=== PATIENT | female | born 1990 | race Caucasian/White ===

== ENCOUNTER 2017-11-10 08:11 | Inpatient (IN) | payer MEDICAID, SELFPAY | END 2017-11-12 11:00 | disposition home or self-care (01) | DRG 641 | PROVIDERS: Admitting Provider Internal Medicine Adolescent Medicine; Emergency Provider Emergency Medicine; Family Provider Internal Medicine Adolescent Medicine; Visit Provider Internal Medicine Adolescent Medicine | DX: E87.6 Hypokalemia (principal); E86.0 Dehydration; Z91.19 Patient's noncompliance with other medical treatment and regimen | CPT/HCPCS: 36415; 80048; 80053; 81001; 81025; 82009; 82150; 82803; 82962; 83605; 83690; 85025; 85610; 85730; 87040; 87086; 93005; 96365; 96367; 96375; 99285; J2405 ==

== ENCOUNTER 2017-11-15 10:20 | Emergency (ER) | payer MEDICAID, SELFPAY | END 2017-11-15 13:34 | disposition short-term general hospital (02) | PROVIDERS: Emergency Provider Emergency Medicine; Family Provider Internal Medicine Adolescent Medicine; Visit Provider Emergency Medicine | DX: E10.10 Type 1 diabetes mellitus with ketoacidosis without coma (principal); R41.82 Altered mental status, unspecified; H54.40 Blindness, one eye, unspecified eye; I10 Essential (primary) hypertension; R68.0 Hypothermia, not associated with low environmental temperature; T38.3X6A Underdosing of insulin and oral hypoglycemic [antidiabetic] drugs, initial encounter; Z91.128 Patient's intentional underdosing of medication regimen for other reason; Z88.3 Allergy status to other anti-infective agents; Z88.2 Allergy status to sulfonamides; Z91.048 Other nonmedicinal substance allergy status; Z79.01 Long term (current) use of anticoagulants; Z79.4 Long term (current) use of insulin; Z79.899 Other long term (current) drug therapy; Z90.49 Acquired absence of other specified parts of digestive tract | CPT/HCPCS: 31500; 36569; 70450; 71010; 72170; 80053; 81001; 81025; 82009; 82803; 82962; 83605; 83690; 83930; 84484; 85025; 93005; 93041; 94002; 96365; 96367; 96375; 99285; C1751; J2543 ==

== ENCOUNTER 2018-01-09 09:41 | Observation (INO) ==
--- NOTE | 2018-01-09 09:26 | Emergency Department Note ---
ED Disposition Clinical Impression: Diabetes mellitus, insulin dependent (IDDM), uncontrolled, Intractable vomiting with nausea, Diarrhea Disposition: Still a Patient Condition on Discharge: Good - Critical Care Critical Care Time: No Attestation: On , the high probability of a clinically significant, sudden or life threatening deterioration of the following system(s) required my full and direct attention, intervention and personal management. The time I documented below is in addition to time spent performing reported procedures but includes the following listed in this critical care notation. Medical Decision Making - Medical Records Medical records reviewed: Yes: I reviewed the patient's medical records. - Lab Data Lab Results 01/09/18 09:07: POC Glucose 409 01/09/18 09:30: Specimen Source Right radial, O2 % Room air, ABG pH 7.46 H, ABG pCO2 27.4 L, ABG pO2 206.4 H, ABG HCO3 19.0 L, ABG Total CO2 19.8 L, ABG O2 Saturation 99, ABG Base Excess -4.8 L, Agustin Test Acceptable 01/09/18 09:36: Influenza Type A Ag Negative, Influenza Type B Ag Negative 01/09/18 09:52: WBC 11.8 H, RBC 4.76, Hgb 12.7, Hct 39.1, MCV 82.2, MCH 26.6 L, MCHC 32.3, RDW 15.0, Plt Count 264, MPV 8.6, Neut % (Auto) 87.5 H, Lymph % (Auto ) 8.1 L, [place] % (Auto) 3.8, Eos % (Auto) 0.4, Baso % (Auto) 0.2, Neut # (Auto) 10.3 H, Lymph # (Auto) 1.0, [place] # (Auto) 0.5, Eos # (Auto) 0.1, Baso # (Auto) 0.0, Total Counted 100, Neutrophils % (Manual) 87 H, Lymphocytes % (Manual) 9 L , Monocytes % (Manual) 4, Platelet Estimate Normal, RBC Morphology Normal 01/09/18 09:52: Sodium 134 L, Potassium 4.2, Chloride 100, Carbon Dioxide 22, Anion Gap 16.2 H, BUN 18, Creatinine 0.69, Estimated Creat Clear 146, Estimated GFR 103, Est GFR ( Amer) 124, Glucose 368 H, Calcium 8.9, Total Bilirubin 0.2, AST 12 L, ALT 25, Alkaline Phosphatase 142 H, Total Creatine Kinase 33, CK-MB (CK-2) 0.9, CK-MB (CK-2) Rel Index 2.7, Troponin I < 0.02, Total Protein 8.4 H, Albumin 3.7, Globulin 4.7 H, Albumin/Globulin Ratio 0.8 L, Acetone Level None detected 01/09/18 09:52: Phosphorus 4.2, Magnesium 1.4 01/09/18 09:53: Lactic Acid 1.0 01/09/18 10:15: Urine Color Yellow, Urine Appearance Sl cloudy, Urine pH 6.0, Ur Specific [place] 1.020, Urine Protein Negative, Urine Glucose (UA) 3+, Urine Ketones 1+, Urine Blood Negative, Urine Nitrate Negative, Urine Bilirubin Negative, Urine Urobilinogen 0.2, Ur Leukocyte Esterase Negative, Urine WBC Occasional, Ur Squamous Epith Cells Occasional, Urine Bacteria Trace Result diagrams: 01/09/18 09:52 01/09/18 09:52 Orders (Tests/Meds): ED MEDICATIONS Discontinued Medications Generic Name Dose Route Start Last Admin Trade Name Freq PRN Reason Stop Dose Admin Dicyclomine HCl 10 mg 01/09/18 11:07 01/09/18 12:03 Bentyl 10mg Capsule PO 01/09/18 11:08 10 mg ONCE ONE Administration Sodium Chloride 1,000 mls @ 999 mls/hr 01/09/18 09:15 Sod Chlor 0.9% 1000ml Bag IV 01/09/18 10:15 .Q1H1M DALIA Sodium Chloride 1,000 mls @ 999 mls/hr 01/09/18 11:15 Sod Chlor 0.9% 1000ml Bag IV 01/09/18 12:15 .Q1H1M DALIA Insulin Human Regular 8 unit 01/09/18 11:07 01/09/18 12:04 Humulin R Insulin 100 Units/Ml 10ml Vial SQ 01/09/18 11:08 8 unit ONCE ONE Administration Loperamide HCl 4 mg 01/09/18 11:47 01/09/18 12:03 Imodium 2 Mg Capsule PO 01/09/18 11:48 4 mg ONCE ONE Administration Ondansetron HCl 4 mg 01/09/18 11:07 01/09/18 12:03 Zofran 4mg/2ml Vial IV 01/09/18 11:08 4 mg ONCE ONE Administration ORDERS Category Date Time Status Diarrhea Panel, PCR Stat Lab 01/09/18 11:15 Received Blood Culture Stat Micro 01/09/18 09:52 Received Stool Culture Stat Micro 01/09/18 11:17 Ordered Arterial Blood Gas Stat RT 01/09/18 09:09 Ordered - Radiology Data #1 Image(s): Chest, Abdomen Image Reviewed: Yes I reviewed the patient's radiology image Preliminary Findings: Normal/NAD - ECG Data Tracing #1 Normal sinus rhythm 80/min poor R-wave progression no acute finding. ECG initial impression date: 01/09/18 ECG initial impression time: 09:27 - Jamari Inquiry Pt receiving controlled substance: No Jamari was queried for this patient: No Medical Decision Making Narrative: I called Dr. Ponce who wanted to wait to see the results of the diarrhea panel give the patient more IV fluids. Later the patient did not tolerate p.o. intake and I called Dr. Ponce who accepted her for admission for IV fluid therapy. General Adult HPI - General Chief complaint: Weakness Stated complaint: hyperglycemic episode - History of Present Illness HPI narrative: 27 years old white female with history of seizure disorder pulmonary embolism on Eliquis and insulin-dependent diabetes mellitus with multiple DKA. She did have 9 DKA episodes in in 2017 with one that had a pH of 6.5. Today she woke up at 6:00 with diarrhea followed by vomiting was unable to take her medications so she called ambulance was brought to the ED. she has mild shortness of breath but she denies having chest pain palpitations hematemesis, hemoptysis, melanotic stool or bleeding per rectum. She said "I do want to be bad like last time" Onset (ago): hour(s) (started at 6 am) Location: abdomen Radiation: non-radiation Severity: mild Quality: other (Crampy with diarrhea. ) Consistency: intermittent Relieving factors: none Exacerbating factors: none Associated symptoms: shortness of breath (Mild shortness of breath.) - Related Data Home Medications Medication Instructions Recorded Confirmed Apixaban [Eliquis] 1 pow * DIRECTED 01/09/18 01/09/18 Insulin Glargine,Hum.rec.anlog 100 unit SQ DAILY 01/09/18 01/09/18 [Basaglar Kwikpen U-100] Insulin Lispro [Humalog] 20 unit SQ BID 01/09/18 01/09/18 OXcarbazepine [Oxcarbazepine] 600 mg PO DAILY 01/09/18 01/09/18 Ondansetron [Zofran 4mg ODT] 4 mg PO DAILY PRN 01/09/18 01/09/18 Venlafaxine HCl [Effexor 37.5mg 0 mg PO DAILY 01/09/18 01/09/18 tablet] levETIRAcetam [Levetiracetam] 500 mg PO DAILY 01/09/18 01/09/18 Allergies Allergy/AdvReac Type Severity Reaction Status Date / Time buspirone [BUSPIRONE] Allergy Unknown Verified 01/09/18 09:15 nitrofurantoin Allergy Unknown Verified 01/09/18 09:15 [NITROFURANTOIN] sulfamethoxazole Allergy Unknown Verified 01/09/18 09:15 [From BACTRIM] topiramate [From TOPAMAX] Allergy Unknown Verified 01/09/18 09:15 trimethoprim [From BACTRIM] Allergy Unknown Verified 01/09/18 09:15 adhesive tape AdvReac Intermediate SKIN Verified 01/09/18 09:15 IR[facility] History I have reviewed the patient's past medical history: Yes ROS Obtained: Yes All systems reviewed & no additional complaints Physical Exam - General General appearance: alert, in no apparent distress - Head Head exam: atraumatic, normocephalic, normal inspection - Eye Eye exam: Present: normal appearance, PERRL, EOMI - ENT ENT exam: Present: normal exam, TM's normal bilaterally, normal external ear exam, other (Mild mucosal dryness.) - Neck Neck exam: Present: normal inspection, full ROM, trachea midline. Absent: meningismus, lymphadenopathy - Chest Chest inspection: Present: normal inspection, symmetric chest wall rise. Absent : tenderness - Respiratory Respiratory exam: Present: normal lung sounds bilaterally. Absent: respiratory distress - Cardiovascular Cardiovascular exam: Present: regular rate, normal rhythm. Absent: JVD - Abdominal Exam Abdominal exam: Present: soft, normal bowel sounds. Absent: distention, tenderness, guarding, rebound, rigidity - Extremities Exam Extremities exam: Present: normal inspection, full ROM, normal capillary refill. Absent: calf tenderness - Back Exam Back exam: Present: normal inspection. Absent: tenderness - Neurological Exam Neurological exam: Present: alert, oriented X3, CN II-XII intact, normal gait, motor sensory deficit - Psychiatric Psychiatric exam: Present: normal affect, normal mood - Skin Skin exam: Present: warm, dry, intact, normal color - Lymphatic Lymphatic Findings: no adenopathy
[2018-01-09 09:42] LABS: ABG Base Excess -4.8 mmol/L (-2.4-2.3); ABG Oxygen Saturation 99 % (90-100); ABG PCO2 27.4 mmhg (35.0-45.0); ABG PH 7.46 mmol/L (7.35-7.45); ABG PO2 206.4 mmhg (80-100); ABG TCO2 19.8 mmhg (23-27)
[2018-01-09 09:44] LABS: Allen's Test ACCEPTABLE; Oxygen ROOM AIR %
[2018-01-09 10:12] LABS: Basophils % 0.2 % (0.1-2.0); Eosinophils # 0.1 K/mm3 (0.0-0.4); Eosinophils % 0.4 % (0.1-12.0); Hematocrit 39.1 % (37.0-47.0); Hemoglobin 12.7 g/dL (12.2-16.2); Lymphocytes % 8.1 K/mm3 (10-50); Mean Corpuscular HGB Conc 32.3 g/dL (31.8-35.4); Mean Corpuscular Hemoglobin 26.6 pg (27.0-31.2); Mean Corpuscular Volume 82.2 fl (81-99); Mean Platelet Volume 8.6 fl (7.4-10.4); Monocytes # 0.5 K/mm3 (0.1-1.0); Monocytes % 3.8 % (1.7-9.3); Neutrophils # 10.3 K/mm3 (1.8-7.8); Neutrophils % 87.5 % (37.0-80.0); Platelet Count 264 K/mm3 (142-424); Red Blood Count 4.76 M/mm3 (4.20-5.40); White Blood Count 11.8 K/mm3 (4.8-10.8)
[2018-01-09 10:19] LABS: Acetone, Serum (Rapid) None Detected (None Detect)
[2018-01-09 10:25] LABS: Phosphorous 4.2 mg/dL (2.4-4.9)
[2018-01-09 10:33] LABS: Lymphocytes % 9 % (10-50); Monocytes % 4 % (2-9); Neutrophils % 87 % (42-76); RBC Morphology Normal; Total Cells Counted 100
[2018-01-09 10:37] LABS: Microscopic, Urine URINE MICROSCOPIC (MICROSCOPIC)
[2018-01-09 10:39] LABS: Alanine Aminotransferase 25 U/L (12-78); Albumin Level 3.7 gm/dL (3.4-5.0); Albumin/Globulin Ratio 0.8 (1.1-1.8); Alkaline Phosphatase 142 U/L (46-116); Anion Gap 16.2 mEq/L (5-15); Aspartate Amino Transferase 12 U/L (15-37); Bilirubin,Total 0.2 mg/dL (0.2-1.0); Blood Urea Nitrogen 18 mg/dL (7-18); Calcium 8.9 mg/dL (8.5-10.1); Carbon Dioxide 22 mmol/L (21.0-32.0); Chloride 100 mmol/L (98-107); Creatine Kinase 33 U/L (26-192); Globulin 4.7 gm/dl (1.3-3.2); Glucose 368 mg/dL (74-106); Potassium 4.2 mmoL/L (3.5-5.1); Sodium 134 mmol/L (136-145); Total Protein,Serum 8.4 gm/dL (6.4-8.2)
[2018-01-09 10:39] LABS: Appearance,Urine SL CLOUDY (Clear); Bilirubin,Urine Negative (Negative); Blood, Urine Negative (Negative); Color,Urine YELLOW (Yellow); Glucose,Urine (UA) 3+ (Negative); Ketones,Urine 1+ (Negative); Leukocyte Esterase,Urine Negative (Negative); Protein,Urine Negative (Negative); Urobilinogen,Urine 0.2 EU/dl (0.2)
[2018-01-09 10:48] LABS: Bacteria,Urine Trace /lpf; Squamous Epithelial Cell,Urine Occasional #/hpf (0-5); WBC,Urine Occasional #/hpf (0-3)
--- NOTE | 2018-01-10 07:35 | Pharmacy Consult Notes ---
[facility] Pharmacy VTE Monitoring - Patient Demographics Admission date: 01/09/18 Report Date: 01/10/18 Time: 07:34 Allergies/Adverse Reactions: Patient Allergies buspirone [BUSPIRONE] Allergy (Unknown, Verified 01/09/18 09:15) nitrofurantoin [NITROFURANTOIN] Allergy (Unknown, Verified 01/09/18 09:15) sulfamethoxazole [From BACTRIM] Allergy (Unknown, Verified 01/09/18 09:15) topiramate [From TOPAMAX] Allergy (Unknown, Verified 01/09/18 09:15) trimethoprim [From BACTRIM] Allergy (Unknown, Verified 01/09/18 09:15) adhesive tape Adverse Reaction (Intermediate, Verified 01/09/18 09:15) SKIN IRRITATION Height: 1.6 m Weight: 77.167 kg Patient Problems: Current Active Problems Diabetes mellitus, insulin dependent (IDDM), uncontrolled (Acute) Intractable vomiting with nausea (Acute) Diarrhea (Acute) - VTE Risk Labs: VTE Related Lab Results Hgb 12.7 g/dL (12.2-16.2) 01/09/18 09:52 Hct 39.1 % (37.0-47.0) 01/09/18 09:52 Plt Count 264 K/mm3 (142-424) 01/09/18 09:52 BUN 18 mg/dL (7-18) 01/09/18 09:52 Creatinine 0.69 mg/dL (0.55-1.02) 01/09/18 09:52 Estimated Creat Clear 146 mL/min (0-300) 01/09/18 09:52 Was VTE Risk Assessment Performed: Yes VTE Score: 2 VTE Risk Level: Low Risk - Prophylaxis VTE Prophylaxis Ordered?: Yes Types of VTE Prophylaxis: TEDS Knee High Location of Applied Device: Bilateral Lower Extremeties - VTE Diagnosis Confirmed Treatment or plan recommended: Continue Current Treatment
[2018-01-10 07:43] VITALS: BP 108/69
--- NOTE | 2018-01-10 08:56 | Swing Bed Reports ---
General - General Admission date: 01/09/18 Discharge date: 01/10/18 *Admission Date: 01/09/18 *Chief complaint: diarrhea *History of present illness: this iddm with dec po intake and had sig diarrhea years old white female with history of seizure disorder pulmonary embolism on Eliquis and insulin-dependent diabetes mellitus with multiple DKA. She did have 9 DKA episodes in in 2017 with one that had a pH of 6.5. Today she woke up at 6:00 with diarrhea followed by vomiting was unable to take her medications so she called ambulance was brought to the ED. she has mild shortness of breath but she denies having chest pain palpitations hematemesis, hemoptysis, melanotic stool or bleeding per rectum. She said "I do want to be bad like last time" Onset (ago): hour(s) (started at 6 am) [facility] History I have reviewed the patient's past medical history: Yes Medical History: Reports:: Diabetes Mellitus Type 1, Palpitations Denies:: Diabetes Mellitus Type 2 Other Medical History: Reports: Anemia Other Surgeries: Yes: Appendectomy Amputation: No Fractures: No - *Social History Educational Level: Completed High School Alcohol Intake: current Alcohol Intake Frequency:: holidays/special occasions only Occupational Status: disabled Housing: house - Psychiatric History Expresses thoughts of harming self/others: None Suicide Plan Description: No Plan *Family Hx:: Diabetes Review of Systems - Review of Systems Review of systems:: pertinent systems reviewed and negative unless documented below - Constitutional Denies chills, Denies fever(s) - Eyes Denies change in vision - ENT Denies sore throat - *Cardiovascular Denies chest pain at rest - *Respiratory Denies chest congestion, Denies cough - *Gastrointestinal Reports abdominal pain, Reports nausea, Denies bright, red blood in stools, Denies vomiting - *Musculoskeletal Denies joint pain - Integumentary/Breasts Denies rash - *Neurologic Denies weakness - Psychiatric Denies confusion Exam Vital signs and Labs for Last 24 Hours: Temp Pulse Resp BP Pulse Ox 98.1 F 78 18 108/69 99 01/10/18 07:41 01/10/18 07:41 01/10/18 07:41 01/10/18 07:41 01/10/18 07:41 Laboratory Results - last 24 hr 01/09/18 13:43: POC Glucose 322 01/09/18 16:48: POC Glucose 199 01/09/18 17:00: Acetone Level None detected 01/09/18 20:42: POC Glucose 179 01/09/18 22:51: Acetone Level None detected 01/10/18 04:55: Acetone Level None detected 01/10/18 05:59: POC Glucose 233 I & O for Last 24 hours: Intake & Output 01/07/18 01/08/18 01/09/18 01/10/18 11:59 11:59 11:59 11:59 Intake Total 6658 / 6658 Balance 6658 / 6658 Weight 170 lb 2 oz - Constitutional no acute distress - *Routine HEENT Exam Head: Present: normocephalic Eye: Present: EOMI, PERRL ENT: Present: mucous membranes dry - *Routine Neck Exam Present: supple - *Routine Respiratory Exam Present: CTA bilaterally - *Routine Cardiovascular Exam Present: RRR. Absent: murmur - *Routine Abdominal Exam Present: soft - *Routine Extremities Exam Present: full ROM - *Routine Skin Exam Present: intact - *Routine Neurological Exam Present: alert, oriented X3, CN II-XII intact - Routine Psychiatric Exam Present: normal affect Hospital Course Hospital Course: pt with ivf and doing better this am with positive c diff and will be d/c on abx and fluids and close follow up Results Labs on day of discharge: Labs from last 24 hours 01/10/18 01/10/18 01/09/18 05:59 04:55 22:51 POC Glucose 233 Acetone Level None detected None detected 01/09/18 01/09/18 01/09/18 20:42 17:00 16:48 POC Glucose 179 199 Acetone Level None detected 01/09/18 13:43 POC Glucose 322 Acetone Level DS: Diagnosis - Discharge Diagnosis (1) C. difficile enteritis Status: Acute Discharge Meditcations Discharge Medications: Home Medications Medication Instructions Recorded Confirmed Type Apixaban [Eliquis] 5 mg PO BID 01/09/18 01/10/18 History Insulin Glargine,Hum.rec.anlog 100 unit SQ DAILY 01/09/18 01/09/18 History [Basaglar Kwikpen U-100] Insulin Lispro [Humalog] 20 unit SQ BID 01/09/18 01/09/18 History OXcarbazepine [Oxcarbazepine] 600 mg PO DAILY 01/09/18 01/09/18 History Ondansetron [Zofran 4mg ODT] 4 mg PO DAILY PRN 01/09/18 01/09/18 History Venlafaxine HCl [Effexor 37.5mg 37.5 mg PO DAILY 01/09/18 01/10/18 History tablet] levETIRAcetam [Levetiracetam] 500 mg PO DAILY 01/09/18 01/09/18 History Disposition Disposition: Home, Self-Care
== END 2018-01-10 10:30 | disposition home or self-care (01) ==
LOC: ER 09:41 → 2ND 09:41 → INTOOBSV 13:40 → OBSVTOIN 13:40 → 2ND 13:43
PROVIDERS: ADMIT Emergency Medicine; ATTEND Emergency Medicine

== ENCOUNTER 2018-01-24 15:17 | Emergency (ER) | payer MEDICAID, SELFPAY ==
[2018-01-24 15:53] VITALS: BP 132/87; PULSE 90; RESP 18; TEMP 36.8; O2SAT 97; BMI 30.4
[2018-01-24 16:10] LABS: Microscopic, Urine URINE MICROSCOPIC (MICROSCOPIC)
[2018-01-24 16:16] LABS: Appearance,Urine CLEAR (Clear); Bilirubin,Urine Negative (Negative); Blood, Urine Negative (Negative); Color,Urine YELLOW (Yellow); Glucose,Urine (UA) 3+ (Negative); Ketones,Urine TRACE (Negative); Leukocyte Esterase,Urine Negative (Negative); Nitrate,Urine Negative (Negative); Protein,Urine Negative (Negative); Specific Gravity, Urine 1.015 (1.005-1.030); Urobilinogen,Urine 0.2 EU/dl (0.2)
--- NOTE | 2018-01-24 16:22 | HMH.EDNVD ---
ED Disposition Clinical Impression: Viral syndrome Disposition: Home, Self-Care Condition on Discharge: Good Instructions: DI for Viral Syndrome Additional Instructions: Please take Tylenol as needed for pain, body aches, follow-up with PCP in the morning. Referrals: Marley Aguilar PA [Primary Care Provider] - Time of Disposition: 18:21 - Critical Care Critical Care Time: No Attestation: On 01/24/18, the high probability of a clinically significant, sudden or life threatening deterioration of the following system(s) required my full and direct attention, intervention and personal management. The time I documented below is in addition to time spent performing reported procedures but includes the following listed in this critical care notation. Medical Decision Making - Medical Records Medical records reviewed: Yes: I reviewed the patient's medical records. Vital Signs: 01/24/18 15:53 01/24/18 18:29 Temperature 98.2 F 98.4 F Temperature Source Oral Oral Pulse Rate 104 H Pulse Rate [Right Brachial] 90 Respiratory Rate 18 18 Blood Pressure 119/44 Blood Pressure [Right Arm] 132/87 Blood Pressure Mean [Right Arm] 102 Blood Pressure Source Automatic Cuff Blood Pressure Source [Right Arm] Automatic Cuff Blood Pressure Position Sitting Blood Pressure Position [Right Arm] Sitting 02 Sat by Pulse Oximetry 97 Oxygen Delivery Method Room Air Room Air - Lab Data Lab results reviewed: Yes: I reviewed the patient's lab results. Lab Results 01/24/18 16:05: Influenza Type A Ag Negative, Influenza Type B Ag Negative 01/24/18 16:05: Urine Color Yellow, Urine Appearance Clear, Urine pH 6.0, Ur Specific [place] 1.015, Urine Protein Negative, Urine Glucose (UA) 3+, Urine Ketones Trace, Urine Blood Negative, Urine Nitrate Negative, Urine Bilirubin Negative, Urine Urobilinogen 0.2, Ur Leukocyte Esterase Negative, Urine RBC None, Urine WBC Occasional, Ur Squamous Epith Cells 5-10, Urine Bacteria Trace 01/24/18 16:45: WBC 7.0, RBC 4.80, Hgb 12.7, Hct 39.3, MCV 81.7, MCH 26.4 L, MCHC 32.4, RDW 13.6, Plt Count 328, MPV 8.8, Neut % (Auto) 72.9, Lymph % (Auto) 20.9, [place] % (Auto) 3.8, Eos % (Auto) 1.8, Baso % (Auto) 0.6, Neut # (Auto) 5.1, Lymph # (Auto) 1.5, [place] # (Auto) 0.3, Eos # (Auto) 0.1, Baso # (Auto) 0.0 01/24/18 16:45: Sodium 136, Potassium 4.2, Chloride 101, Carbon Dioxide 28, Anion Gap 11.2, BUN 14, Creatinine 0.67, Estimated Creat Clear 157, Estimated GFR 106, Est GFR ( Amer) 129, Glucose 277 H, Calcium 9.0, Total Bilirubin 0.2, AST 26, ALT 23, Alkaline Phosphatase 109, Total Protein 7.7, Albumin 3.7, Globulin 4.0 H, Albumin/Globulin Ratio 0.9 L Result diagrams: 01/24/18 16:45 01/24/18 16:45 Orders (Tests/Meds): ED MEDICATIONS Discontinued Medications Generic Name Dose Route Start Last Admin Trade Name Freq PRN Reason Stop Dose Admin Acetaminophen 1,000 mg 01/24/18 16:23 01/24/18 16:43 Tylenol 500mg Tablet PO 01/24/18 16:24 1,000 mg ONCE ONE Administration ORDERS Category Date Time Status POC Glucose,Bedside Routine Lab 01/24/18 15:58 Received fingerstick glucose [POC Glucose,Bedside] Stat Lab 01/24/18 16:00 Ordered - Jamari Inquiry Pt receiving controlled substance: No - Reevaluation(s) Time: 18:15 Reevaluation #1: Upon reevaluation patient appears medically stable, no acute distress, playing on her boyfriend slept up. Advised patient alternate Motrin with Tylenol, increase fluid intake, take her medications prescribed and follow-up with PCP if not better. Nausea/Vomiting/Diarrhea HPI - General Chief complaint: Nausea/Vomiting/Diarrhea Stated complaint: Hurting all over, nausea, dry mouth Mode of Arrival: Ambulatory Limitations: No Limitations Description of Symptoms (Recalled from ER Triage Doc. by RN): Pt c/o nausea, hurting all over, chills and headache that began this morning. - History of Present Illness HPI Narrative: Patient is a
[2018-01-24 16:41] LABS: Bacteria,Urine Trace /lpf; WBC,Urine Occasional #/hpf (0-3)
[2018-01-24 16:59] LABS: Basophils % 0.6 % (0.1-2.0); Eosinophils # 0.1 K/mm3 (0.0-0.4); Eosinophils % 1.8 % (0.1-12.0); Hematocrit 39.3 % (37.0-47.0); Hemoglobin 12.7 g/dL (12.2-16.2); Lymphocytes # 1.5 K/mm3 (0.7-4.5); Lymphocytes % 20.9 K/mm3 (10-50); Mean Corpuscular HGB Conc 32.4 g/dL (31.8-35.4); Mean Corpuscular Hemoglobin 26.4 pg (27.0-31.2); Mean Corpuscular Volume 81.7 fl (81-99); Mean Platelet Volume 8.8 fl (7.4-10.4); Monocytes # 0.3 K/mm3 (0.1-1.0); Monocytes % 3.8 % (1.7-9.3); Neutrophils # 5.1 K/mm3 (1.8-7.8); Neutrophils % 72.9 % (37.0-80.0); Platelet Count 328 K/mm3 (142-424); Red Cell Distribution Width 13.6 % (11.5-17.5)
[2018-01-24 17:17] LABS: Alanine Aminotransferase 23 U/L (12-78); Albumin Level 3.7 gm/dL (3.4-5.0); Albumin/Globulin Ratio 0.9 (1.1-1.8); Alkaline Phosphatase 109 U/L (46-116); Anion Gap 11.2 mEq/L (5-15); Aspartate Amino Transferase 26 U/L (15-37); Bilirubin,Total 0.2 mg/dL (0.2-1.0); Blood Urea Nitrogen 14 mg/dL (7-18); Carbon Dioxide 28 mmol/L (21.0-32.0); Chloride 101 mmol/L (98-107); Creatinine Clearance Estimated 157 mL/min (0-300); Creatinine,Serum 0.67 mg/dL (0.55-1.02); Estimated Glomerular Filt Rate 106 ml/min (>60); GFR (African American) 129 ML/MIN (>60); Glucose 277 mg/dL (74-106); Potassium 4.2 mmoL/L (3.5-5.1); Sodium 136 mmol/L (136-145); Total Protein,Serum 7.7 gm/dL (6.4-8.2)
[2018-01-24 18:29] VITALS: BP 119/44; PULSE 104; RESP 18; TEMP 36.9; O2SAT 97
[2018-01-27 15:07] LABS: POC Glucose,Bedside 320 mg/dL (70-110)
== END 2018-01-24 18:29 | disposition home or self-care (01) ==
PROVIDERS: Emergency Provider Emergency Medicine; Family Provider Internal Medicine Adolescent Medicine; PCP Physician Assistant
DX: J06.9 Acute upper respiratory infection, unspecified (principal); E10.9 Type 1 diabetes mellitus without complications; Z87.891 Personal history of nicotine dependence; Z79.899 Other long term (current) drug therapy
CPT/HCPCS: 80053; 81001; 82962; 85025; 87275; 87276; 99282

== ENCOUNTER 2018-01-29 16:00 | Emergency (ER) | payer MEDICAID, SELFPAY ==
[2018-01-29 16:19] VITALS: BP 142/91; PULSE 101; RESP 20; TEMP 37.1; O2SAT 98; BMI 30.4
--- NOTE | 2018-01-29 16:25 | XR_ITS ---
XR foot RT min 3V HISTORY: Post traumatic pain ITS.REASON: FALL ORDERING PHYSICIAN: Eboni Patterson PATIENT AGE: 27 years COMPARISON: None FINDINGS: No fracture or dislocation. No lytic or blastic change. There is normal mineralization.. The joint spaces are well-preserved. No significant degenerative/arthritic changes. No erosive changes evident. IMPRESSION: Negative, no acute finding
--- NOTE | 2018-01-29 17:08 | HMH.EDUTC ---
[facility] [place] Clinical Impression: Abrasion of foot, right, infected Qualifiers: Encounter type: initial encounter Qualified Code(s): S90.811A - Abrasion, right foot, initial encounter Type 1 diabetes Qualifiers: Diabetes mellitus complication status: with unspecified complications Qualified Code(s): E10.8 - Type 1 diabetes mellitus with unspecified complications Disposition: Home, Self-Care Condition on Discharge: Good Instructions: DI for Wound Infection Additional Instructions: * Monitor blood sugars really closely. Try to keep as normal as possible to promote wound healing. Can raise with infection so if so and consistent, be sure to follow up immediately. * Monitor wound. Take picture daily and take those to follow up. Return immediately with any worsening redness, swelling, drainage, heat, red streaking, onset fever, chills. * Clean with soap and water twice a day. Pat dry. Apply bacitracin ointment. Leave open to air if at home resting with foot elevated. * rest * Ice hurt area of foot * Tylenol as needed for pain * Non weight bearing if too painful. Weight bearing as tolerated. * Follow up in 48 hours. As we discussed, due to your diabetes the risk for worsening wound infection is high. follow up extremely important to reduce the risk of worsening infection leading to amputation * You had a tdap vaccine today (tetanus and pertussis). be sure to let your family doctor know so they can update your records. * Start antibiotic(s) FAYE ( no sooner then 6 hours though since we gave you your first dose in clinic) and be sure to take as ordered for the FULL length of time unless told otherwise at follow up. Prescriptions: Bacitracin [Bacitracin Zinc Oint 30gm Tube] 1 applic TOPICAL BID #28 gm cephALEXin [cephALEXin 500mg capsule] 500 mg PO QID #40 cap Referrals: Marley Aguilar PA [Primary Care Provider] - ([facility] this weekend for ANY new or worsening symptoms. Call Marley Wednesday morning and report injury and infected wound. Tell her you were seen here and need 48 hour wound check. ) Time of Disposition: 17:59 Medical Decision Making Vital Signs: 01/29/18 16:19 Temperature 98.7 F Temperature Source Temporal Artery Scan Pulse Rate [Right Radial] 101 H Respiratory Rate 20 Blood Pressure [Right Arm] 142/91 Blood Pressure Mean [Right Arm] 108 Blood Pressure Source [Right Arm] Automatic Cuff 02 Sat by Pulse Oximetry 98 Oxygen Delivery Method Room Air Orders (Tests/Meds): ED MEDICATIONS Discontinued Medications Generic Name Dose Route Start Last Admin Trade Name Sarah PRN Reason Stop Dose Admin Bacitracin 1 each 01/29/18 17:40 Bacitracin Oint 0.9gm Udp TP 01/29/18 17:41 ONCE ONE Cephalexin HCl 500 mg 01/29/18 17:40 Cephalexin 500mg Capsule PO 01/29/18 17:41 ONCE ONE Protocol Tetanus/Reduced Diphtheria/Acell Pertussis 0.5 ml 01/29/18 17:41 Adacel Tdap 0.5ml Syringe IM 01/29/18 17:42 .ONCE ONE ORDERS Category Date Time Status XR foot RT min 3V Stat Exams 01/29/18 16:25 Taken - Radiology Data #1 Image(s): Foot/Toes Image Reviewed: Yes I reviewed the patient's radiology image w/the ED provider Preliminary Findings: Normal/NAD Rvwd with Dr. Neal, . No acute finding. - Jamair Inquiry Pt receiving controlled substance: No [facility] [place] HPI - General Stated complaint: AO 01/27/18 fell inj to right foot Time Seen by Provider: 01/29/18 17:08 Mode of Arrival: Family Vehicle Source of Information: Patient Limitations: No Limitations Description of Symptoms (Recalled from Triage Doc. by RN): PT STATES SHE FELL 2 DAYS AGO AND NOW HER RIGHT FOOT IS PAINFUL AND SWOLLEN. PT STATES SHE CAN BARELY PUT WEIGHT ON HER RIGHT FOOT. HEENT Symptoms (Recalled from RN notes): No Resp Symptoms (Recalled from RN notes): No Skin Symptoms (Recalled from RN notes): No MS Symptoms (Recalled from RN notes): Yes (RIGHT FOOT SWOLLEN AND PAINFUL FROM FALL) Funct
[2018-01-29 18:35] VITALS: BP 135/76; PULSE 90; RESP 20; TEMP 36.9; O2SAT 97
== END 2018-01-29 18:05 | disposition home or self-care (01) ==
PROVIDERS: Emergency Provider Nurse Practitioner Family; Family Provider Internal Medicine Adolescent Medicine; PCP Physician Assistant
DX: S90.811A Abrasion, right foot, initial encounter (principal); E10.65 Type 1 diabetes mellitus with hyperglycemia; Z79.4 Long term (current) use of insulin; W01.10XA Fall on same level from slipping, tripping and stumbling with subsequent striking against unspecified object, initial encounter; Z23 Encounter for immunization; Z88.2 Allergy status to sulfonamides; Z88.8 Allergy status to other drugs, medicaments and biological substances
CPT/HCPCS: 73630; 90471; 90715; 99202

== ENCOUNTER 2018-02-14 19:56 | Emergency (ER) | payer MEDICAID, SELFPAY ==
[2018-02-14 20:00] VITALS: BP 142/97; PULSE 105; RESP 16; TEMP 36.8; O2SAT 98; BMI 30.4
[2018-02-14 20:48] LABS: Microscopic, Urine URINE MICROSCOPIC (MICROSCOPIC)
--- NOTE | 2018-02-14 20:58 | [facility].EDNVD ---
ED Disposition Clinical Impression: Proctitis Type 1 diabetes Qualifiers: Diabetes mellitus complication status: with other specified complication Qualified Code(s): E10.69 - Type 1 diabetes mellitus with other specified complication Disposition: Home, Self-Care Condition on Discharge: Good Instructions: Nausea and Vomiting-Adult Additional Instructions: see pcp in am for close follow up Prescriptions: levoFLOXacin [Levaquin 500mg tab] 500 mg PO DAILY #7 tab metroNIDAZOLE [Flagyl] 500 mg PO TID #21 tab Referrals: Marley Aguilar PA [Primary Care Provider] - - Critical Care Critical Care Time: No Attestation: On 02/14/18, the high probability of a clinically significant, sudden or life threatening deterioration of the following system(s) required my full and direct attention, intervention and personal management. The time I documented below is in addition to time spent performing reported procedures but includes the following listed in this critical care notation. Medical Decision Making - Medical Records Medical records reviewed: Yes: I reviewed the patient's medical records. - Jamari Inquiry Pt receiving controlled substance: No Vital Signs: 02/14/18 20:00 02/14/18 22:08 Temperature 98.2 F Temperature Source Oral Pulse Rate [Right Brachial] 105 H Respiratory Rate 16 Blood Pressure [Right Arm] 142/97 127/73 Blood Pressure Mean [Right Arm] 112 91 Blood Pressure Source [Right Arm] Automatic Cuff Blood Pressure Position [Right Arm] Sitting 02 Sat by Pulse Oximetry 98 Oxygen Delivery Method Room Air - Lab Data Lab results reviewed: Yes: I reviewed the patient's lab results. Lab Results 02/14/18 20:23: Urine Color Yellow, Urine Appearance Clear, Urine pH 6.5, Ur Specific [place] 1.015, Urine Protein Negative, Urine Glucose (UA) 3+, Urine Ketones Negative, Urine Blood 2+, Urine Nitrate Negative, Urine Bilirubin Negative, Urine Urobilinogen 0.2, Ur Leukocyte Esterase Trace, Urine RBC Occasional, Urine WBC 5-10, Ur Squamous Epith Cells 5-10, Urine Bacteria 1+, Urine Yeast 1+ 02/14/18 20:23: Influenza Type A Ag Negative, Influenza Type B Ag Negative 02/14/18 20:32: Urine HCG, Qual Negative 02/14/18 21:15: WBC 6.5, RBC 4.67, Hgb 12.5, Hct 38.4, MCV 82.2, MCH 26.7 L, MCHC 32.5, RDW 13.8, Plt Count 236, MPV 9.4, Neut % (Auto) 74.7, Lymph % (Auto) 18.9, [place] % (Auto) 4.6, Eos % (Auto) 1.2, Baso % (Auto) 0.6, Neut # (Auto) 4.9, Lymph # (Auto) 1.2, [place] # (Auto) 0.3, Eos # (Auto) 0.1, Baso # (Auto) 0.0 02/14/18 21:15: Sodium 135 L, Potassium 4.0, Chloride 102, Carbon Dioxide 26, Anion Gap 11.0, BUN 11, Creatinine 0.66, Estimated Creat Clear 159, Estimated GFR 108, Est GFR ( Amer) 131, Glucose 374 H, Calcium 8.7, Total Bilirubin 0.2, AST 10 L, ALT 20, Alkaline Phosphatase 119 H, Total Protein 7.7, Albumin 3.5, Globulin 4.2 H, Albumin/Globulin Ratio 0.8 L, Lipase 214, Acetone Level None detected Result diagrams: 02/14/18 21:15 02/14/18 21:15 Orders (Tests/Meds): ED MEDICATIONS Discontinued Medications Generic Name Dose Route Start Last Admin Trade Name Freq PRN Reason Stop Dose Admin Lactated Ringer's 1,000 mls @ 999 mls/hr 02/14/18 21:15 02/14/18 21:22 Lactated Ringer's 1000 Ml Bag IV 02/14/18 22:15 999 mls/hr .Q1H1M DALIA Administration ORDERS Category Date Time Status CT abdomen pelvis wo con Stat Cat Scan 02/14/18 21:00 Taken - CT Data CT Scan: Abdomen, Pelvis Time Received: 22:[address] Reviewed: Yes: I have viewed the radiologist's interpretation Preliminary Findings: Abnormal (see report) Nausea/Vomiting/Diarrhea HPI - General Chief complaint: Nausea/Vomiting/Diarrhea Stated complaint: Aches, Chills, Bloody Discharge, Diarrhea Time Seen by Provider: 02/14/18 20:58 Mode of Arrival: Ambulatory Source of Information: Patient, Medical Record Limitations: No Limitations Description of Symptoms (Recalled from ER Triage Doc. by RN): Pt states
[2018-02-14 20:59] LABS: Appearance,Urine CLEAR (Clear); Bilirubin,Urine Negative (Negative); Blood, Urine 2+ (Negative); Color,Urine YELLOW (Yellow); Glucose,Urine (UA) 3+ (Negative); Ketones,Urine Negative (Negative); Leukocyte Esterase,Urine TRACE (Negative); Nitrate,Urine Negative (Negative); PH,Urine 6.5 (5.0-8.5); Protein,Urine Negative (Negative); Specific Gravity, Urine 1.015 (1.005-1.030); Urobilinogen,Urine 0.2 EU/dl (0.2)
--- NOTE | 2018-02-14 21:00 | CT_ITS ---
CT abdomen pelvis wo con CLINICAL INDICATION: Localized abdominal pain ITS.REASON: abd pain ORDERING PHYSICIAN: Rafiq Dick MD PATIENT AGE: 27 years COMPARISON: 11/16/2011 TECHNIQUE: Axial images obtained with sagittal and coronal reformats. All CT scans at the facility use one or more dose reduction, viz: automated exposure control; ma/kV adjustment per patient size (including targeted exams where dose is matched to indication; i.e. head); or iterative reconstruction technique. PROCEDURE: Oral Contrast: None IV Contrast: None . FINDINGS: There are atelectatic changes in the left lung base with parenchymal opacity in the right lung base posteriorly and could be due to an area of atelectasis or pneumonia. Prior cholecystectomy without ductal dilatation. The liver, spleen, adrenal glands, and pancreas have an unremarkable unenhanced CT appearance. Scattered small lymph nodes are present in the mesentery's nonspecific. No obstructing renal or ureteral calculus. There is a nonobstructing 2 mm stone in the mid pole the left kidney. No intestinal obstruction or free air. Prior appendectomy. No evidence of diverticulitis. What appears represent the left ovary is slightly prominent measuring approximately 4 x 3 cm and may be better evaluated with pelvic ultrasound. There is mild thickening of the of the lower rectum. No acute bony anomalies. IMPRESSION: 1. Atelectasis or infiltrate in the right lung base posteriorly. 2. Mild thickening of the rectum which may be seen with proctitis. 3. Prominent left ovary which may be better evaluated with ultrasound 4. Nonobstructing left renal calculus
--- NOTE | 2018-02-14 21:02 | ED_ITS ---
ED Disposition Clinical Impression: Proctitis Type 1 diabetes Qualifiers: Diabetes mellitus complication status: with other specified complication Qualified Code(s): E10.69 - Type 1 diabetes mellitus with other specified complication Disposition: Home, Self-Care Condition on Discharge: Good Instructions: Nausea and Vomiting-Adult Additional Instructions: see pcp in am for close follow up Prescriptions: levoFLOXacin [Levaquin 500mg tab] 500 mg PO DAILY #7 tab metroNIDAZOLE [Flagyl] 500 mg PO TID #21 tab Referrals: Marley Aguilar PA [Primary Care Provider] - - Critical Care Critical Care Time: No Attestation: On 02/14/18, the high probability of a clinically significant, sudden or life threatening deterioration of the following system(s) required my full and direct attention, intervention and personal management. The time I documented below is in addition to time spent performing reported procedures but includes the following listed in this critical care notation. Medical Decision Making - Medical Records Medical records reviewed: Yes: I reviewed the patient's medical records. - Jamari Inquiry Pt receiving controlled substance: No Vital Signs: 02/14/18 20:00 02/14/18 22:08 Temperature 98.2 F Temperature Source Oral Pulse Rate [Right Brachial] 105 H Respiratory Rate 16 Blood Pressure [Right Arm] 142/97 127/73 Blood Pressure Mean [Right Arm] 112 91 Blood Pressure Source [Right Arm] Automatic Cuff Blood Pressure Position [Right Arm] Sitting 02 Sat by Pulse Oximetry 98 Oxygen Delivery Method Room Air - Lab Data Lab results reviewed: Yes: I reviewed the patient's lab results. Lab Results 02/14/18 20:23: Urine Color Yellow, Urine Appearance Clear, Urine pH 6.5, Ur Specific [place] 1.015, Urine Protein Negative, Urine Glucose (UA) 3+, Urine Ketones Negative, Urine Blood 2+, Urine Nitrate Negative, Urine Bilirubin Negative, Urine Urobilinogen 0.2, Ur Leukocyte Esterase Trace, Urine RBC Occasional, Urine WBC 5-10, Ur Squamous Epith Cells 5-10, Urine Bacteria 1+, Urine Yeast 1+ 02/14/18 20:23: Influenza Type A Ag Negative, Influenza Type B Ag Negative 02/14/18 20:32: Urine HCG, Qual Negative 02/14/18 21:15: WBC 6.5, RBC 4.67, Hgb 12.5, Hct 38.4, MCV 82.2, MCH 26.7 L, MCHC 32.5, RDW 13.8, Plt Count 236, MPV 9.4, Neut % (Auto) 74.7, Lymph % (Auto) 18.9, [place] % (Auto) 4.6, Eos % (Auto) 1.2, Baso % (Auto) 0.6, Neut # (Auto) 4.9 , Lymph # (Auto) 1.2, [place] # (Auto) 0.3, Eos # (Auto) 0.1, Baso # (Auto) 0.0 02/14/18 21:15: Sodium 135 L, Potassium 4.0, Chloride 102, Carbon Dioxide 26, Anion Gap 11.0, BUN 11, Creatinine 0.66, Estimated Creat Clear 159, Estimated GFR 108, Est GFR ( Amer) 131, Glucose 374 H, Calcium 8.7, Total Bilirubin 0.2, AST 10 L, ALT 20, Alkaline Phosphatase 119 H, Total Protein 7.7, Albumin 3.5, Globulin 4.2 H, Albumin/Globulin Ratio 0.8 L, Lipase 214, Acetone Level None detected Result diagrams: 02/14/18 21:15 02/14/18 21:15 Orders (Tests/Meds): ED MEDICATIONS Discontinued Medications Generic Name Dose Route Start Last Admin Trade Name Freq PRN Reason Stop Dose Admin Lactated Ringer's 1,000 mls @ 999 mls/hr 02/14/18 21:15 02/14/18 21:22 Lactated Ringer's 1000 Ml Bag IV 02/14/18 22:15 999 mls/hr .Q1H1M DALIA Administration ORDERS Category Date Time Status CT abdomen pelvis wo con Stat C
--- NOTE | 2018-02-14 21:17 | PC.NURSE ---
power port accessed with a 3/4 needle and labs drawn at this time
[2018-02-14 21:25] LABS: Basophils % 0.6 % (0.1-2.0); Eosinophils # 0.1 K/mm3 (0.0-0.4); Eosinophils % 1.2 % (0.1-12.0); Hematocrit 38.4 % (37.0-47.0); Hemoglobin 12.5 g/dL (12.2-16.2); Lymphocytes # 1.2 K/mm3 (0.7-4.5); Lymphocytes % 18.9 K/mm3 (10-50); Mean Corpuscular HGB Conc 32.5 g/dL (31.8-35.4); Mean Corpuscular Hemoglobin 26.7 pg (27.0-31.2); Mean Corpuscular Volume 82.2 fl (81-99); Mean Platelet Volume 9.4 fl (7.4-10.4); Monocytes # 0.3 K/mm3 (0.1-1.0); Monocytes % 4.6 % (1.7-9.3); Neutrophils # 4.9 K/mm3 (1.8-7.8); Neutrophils % 74.7 % (37.0-80.0); Platelet Count 236 K/mm3 (142-424); Red Blood Count 4.67 M/mm3 (4.20-5.40); Red Cell Distribution Width 13.8 % (11.5-17.5); White Blood Count 6.5 K/mm3 (4.8-10.8)
[2018-02-14 21:29] LABS: Urine Pregnancy, HCG Qual. Negative (Negative)
[2018-02-14 21:34] LABS: Bacteria,Urine 1+ /lpf; RBC,Urine Occasional #/hpf (0-3); Yeast,Urine 1+ /lpf
[2018-02-14 21:35] LABS: Alanine Aminotransferase 20 U/L (12-78); Albumin Level 3.5 gm/dL (3.4-5.0); Albumin/Globulin Ratio 0.8 (1.1-1.8); Alkaline Phosphatase 119 U/L (46-116); Aspartate Amino Transferase 10 U/L (15-37); Bilirubin,Total 0.2 mg/dL (0.2-1.0); Blood Urea Nitrogen 11 mg/dL (7-18); Calcium 8.7 mg/dL (8.5-10.1); Carbon Dioxide 26 mmol/L (21.0-32.0); Chloride 102 mmol/L (98-107); Creatinine Clearance Estimated 159 mL/min (0-300); Creatinine,Serum 0.66 mg/dL (0.55-1.02); Estimated Glomerular Filt Rate 108 ml/min (>60); GFR (African American) 131 ML/MIN (>60); Globulin 4.2 gm/dl (1.3-3.2); Glucose 374 mg/dL (74-106); Lipase 214 u/L (73-393); Sodium 135 mmol/L (136-145); Total Protein,Serum 7.7 gm/dL (6.4-8.2)
[2018-02-14 21:42] LABS: Acetone, Serum (Rapid) None Detected (None Detect)
[2018-02-14 22:08] VITALS: BP 127/73
[2018-02-14 23:08] VITALS: BP 113/81; PULSE 85; RESP 16; TEMP 36.8; O2SAT 97
== END 2018-02-14 23:09 | disposition home or self-care (01) ==
PROVIDERS: Emergency Medicine; Emergency Provider Emergency Medicine; Family Provider Internal Medicine Adolescent Medicine; PCP Physician Assistant
DX: K51.20 Ulcerative (chronic) proctitis without complications (principal); E10.69 Type 1 diabetes mellitus with other specified complication; Z79.4 Long term (current) use of insulin; Z88.2 Allergy status to sulfonamides
CPT/HCPCS: 74176; 80053; 81001; 81025; 82009; 83690; 85025; 87275; 87276; 96365; 99211; 99283

== ENCOUNTER 2018-04-05 23:44 | Observation (INO) ==
[2018-04-06 00:11] LABS: Basophils # 0.1 K/mm3 (0-0.2); Basophils % 0.5 % (0.1-2.0); Eosinophils % 0.2 % (0.1-12.0); Hematocrit 45.6 % (37.0-47.0); Lymphocytes # 0.7 K/mm3 (0.7-4.5); Lymphocytes % 4.9 K/mm3 (10-50); Mean Corpuscular HGB Conc 30.8 g/dL (31.8-35.4); Mean Corpuscular Hemoglobin 27.2 pg (27.0-31.2); Mean Corpuscular Volume 88.4 fl (81-99); Mean Platelet Volume 9.8 fl (7.4-10.4); Monocytes # 0.2 K/mm3 (0.1-1.0); Monocytes % 1.8 % (1.7-9.3); Neutrophils # 12.5 K/mm3 (1.8-7.8); Neutrophils % 92.7 % (37.0-80.0); Platelet Count 303 K/mm3 (142-424); Red Blood Count 5.16 M/mm3 (4.20-5.40); Red Cell Distribution Width 14.4 % (11.5-17.5); White Blood Count 13.5 K/mm3 (4.8-10.8)
[2018-04-06 00:19] LABS: Albumin Level 3.6 gm/dL (3.4-5.0); Albumin/Globulin Ratio 0.9 (1.1-1.8); Anion Gap 31.6 mEq/L (5-15); Bilirubin,Total 0.5 mg/dL (0.2-1.0); Calcium 8.6 mg/dL (8.5-10.1); Globulin 4.1 gm/dl (1.3-3.2); Potassium 4.6 mmoL/L (3.5-5.1); Total Protein,Serum 7.7 gm/dL (6.4-8.2)
[2018-04-06 00:38] LABS: Appearance,Urine CLEAR (Clear); Bilirubin,Urine Negative (Negative); Blood, Urine Negative (Negative); Color,Urine YELLOW (Yellow); Glucose,Urine (UA) 2+ (Negative); Ketones,Urine 3+ (Negative); Leukocyte Esterase,Urine Negative (Negative); Microscopic, Urine URINE MICROSCOPIC (MICROSCOPIC); PH,Urine 5.5 (5.0-8.5); Protein,Urine TRACE (Negative); Specific Gravity, Urine >= 1.030 (1.005-1.030); Urobilinogen,Urine 0.2 EU/dl (0.2)
--- NOTE | 2018-04-06 00:59 | Emergency Department Note ---
ED Disposition Clinical Impression: DKA (diabetic ketoacidoses) Qualifiers: Diabetes mellitus type: type 1 Diabetes mellitus complication detail: without coma Qualified Code(s): E10.10 - Type 1 diabetes mellitus with ketoacidosis without coma Diabetes mellitus, insulin dependent (IDDM), uncontrolled Qualifiers: Diabetes mellitus complication status: with unspecified complications Qualified Code(s): E10.8 - Type 1 diabetes mellitus with unspecified complications; E10.65 - Type 1 diabetes mellitus with hyperglycemia Disposition: Admitted as Observation Condition on Discharge: Good Referrals: Marley Aguilar PA [Primary Care Provider] - - Critical Care Critical Care Time: Yes Attestation: On 04/05/18, the high probability of a clinically significant, sudden or life threatening deterioration of the following system(s) required my full and direct attention, intervention and personal management. The time I documented below is in addition to time spent performing reported procedures but includes the following listed in this critical care notation. Vital system(s) involved:: Metabolic Failure My critical care processes included: Assessment & monitoring of V/S, Initial and Re-exams, Data Review/Interpretation, Coordinating Care, Medication Orders and management Medical Decision Making - Medical Records Medical records reviewed: Yes: I reviewed the patient's medical records. - Jamari Inquiry Pt receiving controlled substance: No Vital Signs: 04/05/18 23:45 04/06/18 00:45 04/06/18 01:45 Temperature 97.8 F 97.9 F Temperature Source Oral Oral Pulse Rate [Right Radial] 116 H 110 H 108 H Respiratory Rate 18 Blood Pressure [Right Arm] 148/78 134/78 126/70 Blood Pressure Mean [Right Arm] 101 96 88 Blood Pressure Source [Right Arm] Automatic Cuff Automatic Cuff Automatic Cuff Blood Pressure Position [Right Arm] Sitting Sitting Sitting 02 Sat by Pulse Oximetry 99 97 97 Oxygen Delivery Method Room Air Room Air Room Air 04/06/18 04:20 04/06/18 06:34 Temperature 97.9 F Temperature Source Oral Pulse Rate [Right Radial] 103 H 70 Respiratory Rate 16 Blood Pressure [Right Arm] 122/74 109/63 Blood Pressure Mean [Right Arm] 90 78 Blood Pressure Source [Right Arm] Automatic Cuff Automatic Cuff Blood Pressure Position [Right Arm] Sitting Supine 02 Sat by Pulse Oximetry 98 95 Oxygen Delivery Method Room Air Room Air - Lab Data Lab results reviewed: Yes: I reviewed the patient's lab results. Lab Results 04/06/18 00:00: WBC 13.5 H D, RBC 5.16, Hgb 14.0, Hct 45.6, MCV 88.4, MCH 27.2, MCHC 30.8 L, RDW 14.4, Plt Count 303 D, MPV 9.8, Neut % (Auto) 92.7 H, Lymph % (Auto) 4.9 L, [place] % (Auto) 1.8, Eos % (Auto) 0.2, Baso % (Auto) 0.5, Neut # ( Auto) 12.5 H, Lymph # (Auto) 0.7, [place] # (Auto) 0.2, Eos # (Auto) 0.0, Baso # ( Auto) 0.1, Total Counted 100, Neutrophils % (Manual) 95 H, Lymphocytes % (Manual ) 5 L, Platelet Estimate Normal, Anisocytosis 1+ 04/06/18 00:00: Sodium 141, Potassium 4.6, Chloride 104, Carbon Dioxide 10 L D, Anion Gap 31.6 H, BUN 14 D, Creatinine 0.90, Estimated Creat Clear 115, Estimated GFR 75, Est GFR ( Amer) 91, Glucose 423 H*, Calcium 8.6, Total Bilirubin 0.5, AST 21 D, ALT 24, Alkaline Phosphatase 139 H, Total Protein 7.7 , Albumin 3.6, Globulin 4.1 H, Albumin/Globulin Ratio 0.9 L 04/06/18 00:04: POC Glucose 484 H* 04/06/18 00:10: Acetone Level Small 04/06/18 00:10: Urine Color Yellow, Urine Appearance Clear, Urine pH 5.5, Ur Specific [place] >= 1.030, Urine Protein Trace, Urine Glucose (UA) 2+, Urine Ketones 3+, Urine Blood Negative, Urine Nitrate Negative, Urine Bilirubin Negative, Urine Urobilinogen 0.2, Ur Leukocyte Esterase Negative, Urine WBC 3-5 , Ur Squamous Epith Cells 5-10, Urine Bacteria Trace 04/06/18 00:10: Urine HCG, Qual Negative 04/06/18 03:05: Sodium 140, Potassium 5.1, Chloride 109 H, Carbon Dioxide 9 L*, Anion Gap 27.1 H, BUN 11, Creatinine 0.85, Estimated Creat Clear 122, Estimated GFR 80, Est GFR ( Amer) 97, Glucose 226 H D, Acetone Level Small 04/06/18 06:30: Sodium 139, Potassium 4.8, Chloride 109 H, Carbon Dioxide 13 L D , Anion Gap 21.8 H, BUN 10, Creatinine 0.77, Estimated Creat Clear 134, Estimated GFR 90, Est GFR ( Amer) 109, Glucose 161 H D, Acetone Level Small 04/06/18 08:00: Acetone Level Small 04/06/18 08:45: POC Glucose 280 H Result diagrams: 04/06/18 00:00 04/06/18 06:30 Orders (Tests/Meds): ED MEDICATIONS Generic Name Dose Route Start Last Admin Trade Name Freq PRN Reason Stop Dose Admin Dextrose/Sodium Chloride 1,000 mls @ 200 mls/hr 04/06/18 07:30 04/06/18 07:35 Dextrose 5%-0.9% Nacl Iv Soln IV 05/06/18 07:29 200 mls/hr .Q5H DALIA Administration Discontinued Medications Generic Name Dose Route Start Last Admin Trade Name Freq PRN Reason Stop Dose Admin Sodium Chloride 1,000 mls @ 999 mls/hr 04/06/18 00:15 04/06/18 00:10 Sod Chlor 0.9% 1000ml Bag IV 04/06/18 01:15 999 mls/hr .Q1H1M DALIA Administration Sodium Chloride 1,000 mls @ 999 mls/hr 04/06/18 00:45 04/06/18 00:39 Sod Chlor 0.9% 1000ml Bag IV 04/06/18 01:45 999 mls/hr .Q1H1M DALIA Administration Sodium Chloride 1,000 mls @ 999 mls/hr 04/06/18 01:30 04/06/18 01:26 Sod Chlor 0.9% 1000ml Bag IV 04/06/18 02:30 999 mls/hr .Q1H1M DALIA Administration Sodium Chloride 1,000 mls @ 999 mls/hr 04/06/18 02:15 04/06/18 02:03 Sod Chlor 0.9% 1000ml Bag IV 04/06/18 03:15 999 mls/hr .Q1H1M DALIA Administration Sodium Chloride 1,000 mls @ 999 mls/hr 04/06/18 04:00 04/06/18 03:58 Sod Chlor 0.9% 1000ml Bag IV 04/06/18 05:00 999 mls/hr .Q1H1M DALIA Administration Sodium Chloride 1,000 mls @ 999 mls/hr 04/06/18 07:30 04/06/18 07:17 Sod Chlor 0.9% 1000ml Bag IV 04/06/18 08:30 999 mls/hr .Q1H1M DALIA Administration Insulin Human Regular 8 unit 04/06/18 00:57 04/06/18 01:04 Humulin R Insulin 100 Units/Ml 10ml Vial IVP 04/06/18 00:58 8 unit ONCE ONE Administration Insulin Human Regular 5 unit 04/06/18 04:10 04/06/18 04:12 Humulin R Insulin 100 Units/Ml 10ml Vial IVP 04/06/18 04:11 5 unit ONCE ONE Administration Ketorolac Tromethamine 30 mg 04/06/18 00:58 04/06/18 01:03 Toradol 30mg/Ml Vial IV 04/06/18 00:59 30 mg ONCE ONE Administration Ondansetron HCl 4 mg 04/06/18 07:51 04/06/18 07:53 Zofran 4mg/2ml Vial IV 04/06/18 07:52 4 mg ONCE ONE Administration Promethazine HCl 12.5 mg 04/06/18 00:58 04/06/18 01:03 Phenergan 25mg/Ml 1ml Vial IV 04/06/18 00:59 12.5 mg ONCE ONE Administration Sodium Chloride 25 ml 04/06/18 00:58 04/06/18 01:10 Sod Chlor 0.9% 25ml Bag IV 04/06/18 00:59 Not Given ONCE ONE Nausea/Vomiting/Diarrhea HPI - General Chief complaint: Nausea/Vomiting/Diarrhea Stated complaint: vomiting Time Seen by Provider: 04/06/18 00:56 Mode of Arrival: EMS Source of Information: Patient, Significant Other, Medical Record Limitations: No Limitations Description of Symptoms (Recalled from ER Triage Doc. by RN): Pt. reports she has been vomiting since 530 pm, and reports fingerstick of 471 at 9pm. - History of Present Illness HPI Narrative: wf who has known iddm who has had elevated glu with n/v with dec po intake who presents for eval in the ed- has hx of neuropathy lower ext MD complaint: nausea, vomiting Onset (ago): hour(s) Associated Abdominal Pain: No Severity: moderate Associated symptoms: malaise - Related Data Home Medications Medication Instructions Recorded Confirmed Lacosamide [Vimpat] 200 mg PO TID 01/29/18 04/05/18 Lancets 0 strip .ROUTE .MEDSUPPLY 03/10/18 04/05/18 Venlafaxine HCl [Effexor 37.5mg 37.5 mg PO DAILY 04/05/18 04/05/18 tablet] Previous Rx's Medication Instructions Recorded apixaban 5 mg tablet 5 mg PO BID #60 tab 01/14/18 Loperamide HCl [Imodium A-D] 2 mg PO Q6HP PRN #12 cap 03/19/18 Ondansetron [Zofran 4mg ODT] 4 mg PO Q8HP PRN #6 tab.rapdis 03/19/18 insulin glargine (U-100) 100 20 unit SUB-Q BID #15 ml 04/04/18 unit/mL (3 mL) subcutaneous pen insulin lispro (U-100) 100 unit/mL See Label Instructions SUB-Q .with 04/04/18 subcutaneous pen meals #15 ml levetiracetam 500 mg tablet 2,500 mg PO BID #60 tab 04/04/18 oxcarbazepine 600 mg tablet 1,200 mg PO BID #60 tab 04/04/18 Allergies Allergy/AdvReac Type Severity Reaction Status Date / Time buspirone [BUSPIRONE] Allergy Unknown Verified 04/05/18 23:51 nitrofurantoin Allergy Unknown Verified 04/05/18 23:51 [NITROFURANTOIN] sulfamethoxazole Allergy Unknown Verified 04/05/18 23:51 [From BACTRIM] topiramate [From TOPAMAX] Allergy Unknown Verified 04/05/18 23:51 trimethoprim [From BACTRIM] Allergy Unknown Verified 04/05/18 23:51 adhesive tape AdvReac Intermediate SKIN Verified 04/05/18 23:51 [facility] History I have reviewed the patient's past medical history: Yes Medical History: Reports:: Depression, Diabetes Mellitus Type 1, Palpitations, Seizures Denies:: Cancer, Diabetes Mellitus Type 2, MRSA Other Medical History: Reports: Anemia, Other (PE x5) Other Surgeries: Yes: Appendectomy, Tubal Ligation, Other (Brain, RT eye corrective, back surgery, cholecystectomy) Amputation: No Fractures: No - Social History Smoking Status: Former smoker Tobacco Type: cigarettes Alcohol Intake: never Alcohol Intake Frequency:: holidays/special occasions only Occupational Status: disabled Housing: house - Psychiatric History Expresses thoughts of harming self/others: None Suicide Plan Description: No Plan Pschychiatric History:: Reports:: Depression Family Hx:: Diabetes, Hypertension, Coronary Artery Disease ROS Obtained: Yes All systems reviewed & no additional complaints - Constitutional Constitutional: Denies fever(s) - Eyes Eyes: Denies change in vision - ENT Ears, Nose, Mouth, and Throat: Denies sore throat - Cardiovascular Cardiovascular: Denies chest pain - Respiratory Respiratory: No cough - Gastrointestinal Gastrointestingal: Reports: nausea, vomiting. Denies: abdominal pain, diarrhea - Genitourinary Female Genitourinary: Denies hematuria - Musculoskeletal Musculoskeletal: Denies joint pain, Denies joint swelling - Integumentary/Breasts Skin/Breast: Denies rash - Neurologic Neurologic: Denies seizure-like activity Physical Exam - General General appearance: in no apparent distress - Head Head exam: atraumatic, normocephalic - Eye Eye exam: Present: PERRL, EOMI. Absent: scleral icterus - ENT ENT exam: Present: mucous membranes dry - Neck Neck exam: Present: normal inspection, trachea midline - Respiratory Respiratory exam: Present: normal lung sounds bilaterally. Absent: respiratory distress - Cardiovascular Cardiovascular exam: Present: regular rate. Absent: rubs - Abdominal Exam Abdominal exam: Present: soft - Extremities Exam Extremities exam: Absent: calf tenderness - Neurological Exam Neurological exam: Present: alert, oriented X3, CN II-XII intact - Psychiatric Psychiatric exam: Present: anxious - Skin Skin exam: Absent: rash
[2018-04-06 01:01] LABS: Bacteria,Urine Trace /lpf
[2018-04-06 01:07] LABS: Lymphocytes % 5 % (10-50); Neutrophils % 95 % (42-76); Total Cells Counted 100
[2018-04-06 01:08] LABS: Anisocytosis 1+
[2018-04-06 03:17] LABS: Anion Gap 27.1 mEq/L (5-15); Blood Urea Nitrogen 11 mg/dL (7-18); Chloride 109 mmol/L (98-107); Glucose 226 mg/dL (74-106); Potassium 5.1 mmoL/L (3.5-5.1); Sodium 140 mmol/L (136-145)
[2018-04-06 03:21] LABS: Carbon Dioxide 9 mmol/L (21.0-32.0)
[2018-04-06 03:41] LABS: Acetone, Serum (Rapid) Small (None Detect)
[2018-04-06 06:42] LABS: Acetone, Serum (Rapid) Small (None Detect)
[2018-04-06 06:48] LABS: Anion Gap 21.8 mEq/L (5-15); Blood Urea Nitrogen 10 mg/dL (7-18); Carbon Dioxide 13 mmol/L (21.0-32.0); Chloride 109 mmol/L (98-107); Glucose 161 mg/dL (74-106); Potassium 4.8 mmoL/L (3.5-5.1); Sodium 139 mmol/L (136-145)
[2018-04-06 11:16] LABS: Anion Gap 24.8 mEq/L (5-15); Potassium 4.8 mmoL/L (3.5-5.1)
--- NOTE | 2018-04-06 13:03 | History & Physical Report ---
*Admission Date: 04/06/18 *Chief complaint: vomiting *History of present illness: this wf who has known iddm and sz disorder presented to ed with progressive nausea and vomiting and elevated glu with dec po intake - she reports being compliant with diet and meds- she was seen in the ed and was aggressively treated for dka but failed to respond and was admitted [facility] History I have reviewed the patient's past medical history: Yes Medical History: Reports:: Arrhythmia, Depression, Diabetes Mellitus Type 1, Palpitations, Seizures Denies:: Cancer, Diabetes Mellitus Type 2, MRSA Other Medical History: Reports: Anemia, Other (PE x5) Other Surgeries: Yes: Appendectomy, Cholecystectomy, Tubal Ligation, Other ( Brain, RT eye corrective, back surgery, cholecystectomy) Amputation: No Fractures: No - *Social History Educational Level: Completed High School Smoking Status: Former smoker Tobacco Type: cigarettes #Yrs smoked (if former smoker): 4 Alcohol Intake: never Alcohol Intake Frequency:: holidays/special occasions only Occupational Status: disabled Housing: house Household Members: friend(s), other - Psychiatric History Expresses thoughts of harming self/others: None Suicide Plan Description: No Plan Pschychiatric History:: Reports:: Depression *Family Hx:: Diabetes, Hypertension, Coronary Artery Disease Review of Systems - Review of Systems Review of systems:: pertinent systems reviewed and negative unless documented below - Constitutional Reports anorexia, Reports weakness, Denies fever(s) - Eyes Denies change in vision - ENT Denies sore throat - *Cardiovascular Denies chest pain at rest, Denies irregular heart rhythm, Denies leg swelling - *Respiratory Denies cough, Denies shortness of breath - *Gastrointestinal Reports nausea, Reports vomiting, Denies loose stools, Denies black, tarry stools - *Genitourinary Denies blood in urine, Denies pelvic pain - *Musculoskeletal Reports muscle cramps, Denies joint pain, Denies joint swelling - Integumentary/Breasts Denies rash - *Neurologic Reports dizziness, Denies loss of vision, Denies seizure-like activity - Psychiatric Reports anxiety Meds Home Medications Medication Instructions Recorded Confirmed Type Lacosamide [Vimpat] 200 mg PO TID 01/29/18 04/05/18 History Lancets 0 strip .ROUTE .MEDSUPPLY 04/12/18 05/08/18 History Venlafaxine HCl [Effexor 37.5mg 37.5 mg PO DAILY 04/05/18 04/05/18 History tablet] Allergies Allergy/AdvReac Type Severity Reaction Status Date / Time buspirone [BUSPIRONE] Allergy Unknown Verified 04/05/18 23:51 nitrofurantoin Allergy Unknown Verified 04/05/18 23:51 [NITROFURANTOIN] sulfamethoxazole Allergy Unknown Verified 04/05/18 23:51 [From BACTRIM] topiramate [From TOPAMAX] Allergy Unknown Verified 04/05/18 23:51 trimethoprim [From BACTRIM] Allergy Unknown Verified 04/05/18 23:51 adhesive tape AdvReac Intermediate SKIN Verified 04/05/18 23:51 IRRITATION Exam Vital signs and Labs for Last 24 Hours: Temp Pulse Resp BP Pulse Ox 97.9 F 82 18 116/66 100 04/06/18 12:00 04/06/18 12:00 04/06/18 12:00 04/06/18 12:00 04/06/18 12:00 Laboratory Results - last 24 hr 04/06/18 00:00: WBC 13.5 H D, RBC 5.16, Hgb 14.0, Hct 45.6, MCV 88.4, MCH 27.2, MCHC 30.8 L, RDW 14.4, Plt Count 303 D, MPV 9.8, Neut % (Auto) 92.7 H, Lymph % (Auto) 4.9 L, [place] % (Auto) 1.8, Eos % (Auto) 0.2, Baso % (Auto) 0.5, Neut # ( Auto) 12.5 H, Lymph # (Auto) 0.7, [place] # (Auto) 0.2, Eos # (Auto) 0.0, Baso # ( Auto) 0.1, Total Counted 100, Neutrophils % (Manual) 95 H, Lymphocytes % (Manual ) 5 L, Platelet Estimate Normal, Anisocytosis 1+ 04/06/18 00:00: Sodium 141, Potassium 4.6, Chloride 104, Carbon Dioxide 10 L D, Anion Gap 31.6 H, BUN 14 D, Creatinine 0.90, Estimated Creat Clear 115, Estimated GFR 75, Est GFR ( Amer) 91, Glucose 423 H*, Calcium 8.6, Total Bilirubin 0.5, AST 21 D, ALT 24, Alkaline Phosphatase 139 H, Total Protein 7.7 , Albumin 3.6, Globulin 4.1 H, Albumin/Globulin Ratio 0.9 L 04/06/18 00:04: POC Glucose 484 H* 04/06/18 00:10: Acetone Level [facility] 04/06/18 00:10: Urine Color Yellow, Urine Appearance Clear, Urine pH 5.5, Ur Specific [place] >= 1.030, Urine Protein Trace, Urine Glucose (UA) 2+, Urine Ketones 3+, Urine Blood Negative, Urine Nitrate Negative, Urine Bilirubin Negative, Urine Urobilinogen 0.2, Ur Leukocyte Esterase Negative, Urine WBC 3-5 , Ur Squamous Epith Cells 5-10, Urine Bacteria Trace 04/06/18 00:10: Urine HCG, Qual Negative 04/06/18 03:05: Sodium 140, Potassium 5.1, Chloride 109 H, Carbon Dioxide 9 L*, Anion Gap 27.1 H, BUN 11, Creatinine 0.85, Estimated Creat Clear 122, Estimated GFR 80, Est GFR ( Amer) 97, Glucose 226 H D, Acetone Level [facility] 04/06/18 06:30: Sodium 139, Potassium 4.8, Chloride 109 H, Carbon Dioxide 13 L D , Anion Gap 21.8 H, BUN 10, Creatinine 0.77, Estimated Creat Clear 134, Estimated GFR 90, Est GFR ( Amer) 109, Glucose 161 H D, Acetone Level [facility] 04/06/18 08:00: Acetone Level [facility] 04/06/18 08:45: POC Glucose 280 H 04/06/18 10:21: POC Glucose 314 H* 04/06/18 10:55: Sodium 136, Potassium 4.8, Chloride 105, Carbon Dioxide 11 L, Anion Gap 24.8 H, BUN 7 D, Creatinine 0.96 D, Estimated Creat Clear 107, Estimated GFR 70, Est GFR ( Amer) 84 D, Glucose 345 H D, Magnesium 1.6 04/06/18 10:55: Phosphorus 2.5 04/06/18 12:01: POC Glucose 340 H* I & O for Last 24 hours: Intake & Output 04/04/18 04/05/18 04/06/18 04/07/18 11:59 11:59 11:59 11:59 Intake Total 840 / 840 Output Total 1000 / 1000 Balance -160 / -160 Weight 170 lb - Constitutional no acute distress - *Routine HEENT Exam Head: Present: normocephalic Eye: Present: EOMI, PERRL. Absent: conjunctival icterus ENT: Present: mucous membranes dry - *Routine Neck Exam Present: supple. Absent: JVD - *Routine Respiratory Exam Present: CTA bilaterally - *Routine Cardiovascular Exam Present: RRR, murmur. Absent: gallop, rubs - *Routine Abdominal Exam Present: soft. Absent: tenderness, rebound - *Routine Extremities Exam Present: pulses intact. Absent: palpable cord, Shanda's sign - Routine Back/Spine/Pelvis Exam Back/Spine: Absent: CVA tenderness - *Routine Skin Exam Present: intact. Absent: rash - *Routine Neurological Exam Present: alert, oriented X3, CN II-XII intact - Routine Psychiatric Exam Present: anxious H&P: Result - Labs Labs: Short CBC 04/06/18 Range/Units 00:00 WBC 13.5 H D (4.8-10.8) K/mm3 Hgb 14.0 (12.2-16.2) g/dL Hct 45.6 (37.0-47.0) % Plt Count 303 D (142-424) K/mm3 BMP 04/06/18 04/06/18 04/06/18 00:00 03:05 06:30 Sodium 141 140 139 Potassium 4.6 5.1 4.8 Chloride 104 109 H 109 H Carbon Dioxide 10 L D 9 L* 13 L D BUN 14 D 11 10 Creatinine 0.90 0.85 0.77 Glucose 423 H* 226 H D 161 H D Calcium 8.6 04/06/18 10:55 Sodium 136 Potassium 4.8 Chloride 105 Carbon Dioxide 11 L BUN 7 D Creatinine 0.96 D Glucose 345 H D Calcium Liver Function 04/06/18 Range/Units 00:00 Total Bilirubin 0.5 (0.2-1.0) mg/dL AST 21 D (15-37) U/L ALT 24 (12-78) U/L Alkaline Phosphatase 139 H (46-116) U/L Albumin 3.6 (3.4-5.0) gm/dL Urine 04/06/18 Range/Units 00:10 Urine Color Yellow (Yellow) Urine Appearance Clear (Clear) Urine pH 5.5 (5.0-8.5) Ur Specific [place] >= 1.030 (1.005-1.030) Urine Protein Trace (Negative) Urine Glucose (UA) 2+ (Negative) Assessment and Plan (1) DKA (diabetic ketoacidoses) Current visit: Yes Status: Acute Qualifiers: Diabetes mellitus type: type 1 Diabetes mellitus complication detail: without coma Qualified Code(s): E10.10 - Type 1 diabetes mellitus with ketoacidosis without coma Category: Medical Code(s): E13.10 - Other specified diabetes mellitus with ketoacidosis without coma (2) Diabetes mellitus, insulin dependent (IDDM), uncontrolled Current visit: Yes Status: Acute Qualifiers: Diabetes mellitus complication status: with unspecified complications Qualified Code(s): E10.8 - Type 1 diabetes mellitus with unspecified complications; E10.65 - Type 1 diabetes mellitus with hyperglycemia Category: Medical Code(s): E10.65 - Type 1 diabetes mellitus with hyperglycemia
--- NOTE | 2018-04-06 13:19 | Pharmacy Consult Notes ---
[facility] Pharmacy VTE Monitoring - Patient Demographics Admission date: 04/06/18 Report Date: 04/06/18 Time: 13:19 Allergies/Adverse Reactions: Patient Allergies buspirone [BUSPIRONE] Allergy (Unknown, Verified 04/05/18 23:51) nitrofurantoin [NITROFURANTOIN] Allergy (Unknown, Verified 04/05/18 23:51) sulfamethoxazole [From BACTRIM] Allergy (Unknown, Verified 04/05/18 23:51) topiramate [From TOPAMAX] Allergy (Unknown, Verified 04/05/18 23:51) trimethoprim [From BACTRIM] Allergy (Unknown, Verified 04/05/18 23:51) adhesive tape Adverse Reaction (Intermediate, Verified 04/05/18 23:51) SKIN IRRITATION Height: 1.6 m Weight: 77.111 kg Patient Problems: Current Active Problems Diabetes mellitus, insulin dependent (IDDM), uncontrolled (Acute) DKA (diabetic ketoacidoses) (Acute) DKA (diabetic ketoacidoses) (Acute) - VTE Risk Labs: VTE Related Lab Results Hgb 14.0 g/dL (12.2-16.2) 04/06/18 00:00 Hct 45.6 % (37.0-47.0) 04/06/18 00:00 Plt Count 303 K/mm3 (142-424) D 04/06/18 00:00 BUN 7 mg/dL (7-18) D 04/06/18 10:55 Creatinine 0.96 mg/dL (0.55-1.02) D 04/06/18 10:55 Estimated Creat Clear 107 mL/min (0-300) 04/06/18 10:55 Was VTE Risk Assessment Performed: Yes VTE Score: 2 VTE Risk Level: Low Risk Clinical Trial Participant: No - Prophylaxis VTE Prophylaxis Ordered?: Yes Types of VTE Prophylaxis: TEDS Knee High
[2018-04-06 14:44] LABS: Anion Gap 16.2 mEq/L (5-15); Potassium 4.2 mmoL/L (3.5-5.1)
[2018-04-07 05:58] LABS: Basophils % 0.5 % (0.1-2.0); Eosinophils # 0.1 K/mm3 (0.0-0.4); Eosinophils % 1.1 % (0.1-12.0); Hematocrit 28.6 % (37.0-47.0); Hemoglobin 9.6 g/dL (12.2-16.2); Lymphocytes # 1.7 K/mm3 (0.7-4.5); Mean Corpuscular HGB Conc 33.5 g/dL (31.8-35.4); Mean Corpuscular Hemoglobin 27.4 pg (27.0-31.2); Mean Corpuscular Volume 81.9 fl (81-99); Mean Platelet Volume 9.8 fl (7.4-10.4); Monocytes # 0.2 K/mm3 (0.1-1.0); Monocytes % 4.3 % (1.7-9.3); Neutrophils # 2.7 K/mm3 (1.8-7.8); Neutrophils % 58.1 % (37.0-80.0); Platelet Count 183 K/mm3 (142-424); Red Blood Count 3.49 M/mm3 (4.20-5.40); Red Cell Distribution Width 14.7 % (11.5-17.5); White Blood Count 4.6 K/mm3 (4.8-10.8)
[2018-04-07 06:12] LABS: Anion Gap 11.5 mEq/L (5-15); Potassium 3.5 mmoL/L (3.5-5.1)
[2018-04-07 12:39] LABS: Phosphorous 3.1 mg/dL (2.4-4.9)
[2018-04-07 14:49] LABS: Basophils % 0.3 % (0.1-2.0); Eosinophils % 0.5 % (0.1-12.0); Hematocrit 30.6 % (37.0-47.0); Lymphocytes % 17.6 K/mm3 (10-50); Mean Corpuscular HGB Conc 32.5 g/dL (31.8-35.4); Mean Corpuscular Hemoglobin 27.3 pg (27.0-31.2); Mean Corpuscular Volume 83.9 fl (81-99); Mean Platelet Volume 9.3 fl (7.4-10.4); Monocytes # 0.2 K/mm3 (0.1-1.0); Monocytes % 3.9 % (1.7-9.3); Neutrophils # 4.5 K/mm3 (1.8-7.8); Neutrophils % 77.7 % (37.0-80.0); Platelet Count 195 K/mm3 (142-424); Red Blood Count 3.65 M/mm3 (4.20-5.40); Red Cell Distribution Width 14.6 % (11.5-17.5); White Blood Count 5.8 K/mm3 (4.8-10.8)
[2018-04-07 14:53] LABS: Albumin Level 2.8 gm/dL (3.4-5.0); Albumin/Globulin Ratio 0.8 (1.1-1.8); Anion Gap 15.2 mEq/L (5-15); Bilirubin,Total 0.2 mg/dL (0.2-1.0); Calcium 8.5 mg/dL (8.5-10.1); Globulin 3.4 gm/dl (1.3-3.2); Potassium 4.2 mmoL/L (3.5-5.1); Total Protein,Serum 6.2 gm/dL (6.4-8.2)
--- NOTE | 2018-04-07 16:30 | Progress Note ---
Internal Medicine - PN: Subj *Date: 04/07/18 *Time: 16:28 Exam Vital signs and Labs for Last 24 Hours: Temp Pulse Resp BP Pulse Ox 97.7 F 73 16 127/82 97 04/07/18 07:27 04/07/18 14:00 04/07/18 14:00 04/07/18 14:00 04/07/18 14:00 Laboratory Results - last 24 hr 04/06/18 16:46: POC Glucose 146 H 04/06/18 18:03: POC Glucose 127 H 04/06/18 18:46: Sodium 140, Potassium 4.0, Chloride 109 H, Carbon Dioxide 23 D , Anion Gap 12.0, BUN 13 D, Creatinine 0.94, Estimated Creat Clear 109, Estimated GFR 71, Est GFR ( Amer) 86, Glucose 163 H D 04/06/18 19:10: POC Glucose 178 H 04/06/18 20:26: POC Glucose 206 H 04/06/18 21:16: POC Glucose 232 H 04/06/18 21:44: Magnesium 1.5 04/06/18 21:44: Phosphorus 1.9 L 04/06/18 22:06: POC Glucose 246 H 04/06/18 23:04: POC Glucose 266 H 04/07/18 00:09: POC Glucose 211 H 04/07/18 01:00: POC Glucose 189 H 04/07/18 01:54: POC Glucose 182 H 04/07/18 03:00: Acetone Level None detected 04/07/18 04:08: POC Glucose 150 H 04/07/18 05:08: POC Glucose 140 H 04/07/18 05:45: Sodium 143, Potassium 3.5, Chloride 110 H, Carbon Dioxide 25, Anion Gap 11.5, BUN 14, Creatinine 0.69 D, Estimated Creat Clear 154, Estimated GFR 102, Est GFR ( Amer) 123 D, Glucose 164 H 04/07/18 05:45: WBC 4.6 L D, RBC 3.49 L D, Hgb 9.6 L, Hct 28.6 L, MCV 81.9, MCH 27.4, MCHC 33.5, RDW 14.7, Plt Count 183 D, MPV 9.8, Neut % (Auto) 58.1, Lymph % (Auto) 36.0, [place] % (Auto) 4.3, Eos % (Auto) 1.1, Baso % (Auto) 0.5, Neut # ( Auto) 2.7, Lymph # (Auto) 1.7, [place] # (Auto) 0.2, Eos # (Auto) 0.1, Baso # (Auto ) 0.0 04/07/18 05:50: POC Glucose 149 H 04/07/18 06:54: POC Glucose 146 H 04/07/18 08:24: POC Glucose 211 H 04/07/18 10:23: POC Glucose 436 H* 04/07/18 11:29: Phosphorus 3.1 D, Magnesium 1.3 L D 04/07/18 14:30: WBC 5.8 D, RBC 3.65 L, Hgb 10.0 L, Hct 30.6 L, MCV 83.9, MCH 27.3, MCHC 32.5, RDW 14.6, Plt Count 195, MPV 9.3, Neut % (Auto) 77.7, Lymph % ( Auto) 17.6, [place] % (Auto) 3.9, Eos % (Auto) 0.5, Baso % (Auto) 0.3, Neut # (Auto ) 4.5, Lymph # (Auto) 1.0, [place] # (Auto) 0.2, Eos # (Auto) 0.0, Baso # (Auto) 0.0 04/07/18 14:30: Sodium 136, Potassium 4.2, Chloride 102, Carbon Dioxide 23, Anion Gap 15.2 H, BUN 11, Creatinine 0.90 D, Estimated Creat Clear 118, Estimated GFR 75, Est GFR ( Amer) 91 D, Glucose 439 H* D, Calcium 8.5, Total Bilirubin 0.2, AST 11 L D, ALT 19, Alkaline Phosphatase 98, Total Protein 6.2 L, Albumin 2.8 L, Globulin 3.4 H, Albumin/Globulin Ratio 0.8 L 04/07/18 14:30: Acetone Level None detected I & O for Last 24 hours: Intake & Output 04/05/18 04/06/18 04/07/18 04/08/18 11:59 11:59 11:59 11:59 Intake Total 2039 / 2039 900 / 900 Output Total 5600 / 5600 Balance -3560 / -3560 900 / 900 Weight 170 lb 176 lb 1.014 oz - Constitutional no acute distress - *Routine HEENT Exam Head: Present: normocephalic Eye: Present: PERRL ENT: Present: mucous membranes moist - *Routine Neck Exam Present: full ROM - *Routine Respiratory Exam Present: CTA bilaterally - *Routine Cardiovascular Exam Present: RRR - *Routine Abdominal Exam Present: soft, normoactive bowel sounds - *Routine Neurological Exam Present: alert, oriented X3, CN II-XII intact - Routine Psychiatric Exam Present: normal affect Assessment and Plan (1) DKA (diabetic ketoacidoses) Current visit: Yes Status: Acute Qualifiers: Diabetes mellitus type: type 1 Diabetes mellitus complication detail: without coma Qualified Code(s): E10.10 - Type 1 diabetes mellitus with ketoacidosis without coma Category: Medical Code(s): E13.10 - Other specified diabetes mellitus with ketoacidosis without coma (2) Diabetes mellitus, insulin dependent (IDDM), uncontrolled Current visit: Yes Status: Acute Qualifiers: Diabetes mellitus complication status: with unspecified complications Qualified Code(s): E10.8 - Type 1 diabetes mellitus with unspecified complications; E10.65 - Type 1 diabetes mellitus with hyperglycemia Category: Medical Code(s): E10.65 - Type 1 diabetes mellitus with hyperglycemia - Assessment and plan all Dx Assessment and Plan for all problems:: dulce maria kelley round later today. will poss dc in am
--- NOTE | 2018-04-10 11:19 | Discharge Summary ---
General - General Admission date:: 04/06/18 Discharge date: 04/07/18 HPI HPI: this wf who has known iddm and sz disorder presented to ed with progressive nausea and vomiting and elevated glu with dec po intake - she reports being compliant with diet and meds- she was seen in the ed and was aggressively treated for dka but failed to respond and was admitted Hospital Course Hospital Course: iv insulin, monitor of labs, and vitials. 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 - *Routine Neck Exam Present: supple, full ROM - *Routine Respiratory Exam Present: CTA bilaterally - *Routine Cardiovascular Exam Present: RRR - *Routine Abdominal Exam Present: soft, normoactive bowel sounds - *Routine Extremities Exam Present: full ROM - *Routine Skin Exam Present: intact - *Routine Neurological Exam Present: alert, oriented X3, CN II-XII intact - Routine Psychiatric Exam Present: normal affect, normal thought process - Detailed Eye Exam Eyelids: Left normal inspection Results - Additional Comments rounded with dulce maria DS: Diagnosis - Discharge Diagnosis (1) DKA (diabetic ketoacidoses) Status: Acute (2) Diabetes mellitus, insulin dependent (IDDM), uncontrolled Status: Acute Discharge Plan - Patient Discharge Instructions ACTIVITY: Continue current activity DIET: continue same diet Patient Instructions: DI for Diabetes Type 1 -- Adult, DI for Diabetic Ketoacidosis - Follow up Plan Disposition: Left Against Medical Advice Home Medications: Home Medications Medication Instructions Recorded Confirmed Type Lacosamide [Vimpat] 200 mg PO TID 01/29/18 04/05/18 History Lancets 0 strip .ROUTE .MEDSUPPLY 03/10/18 04/05/18 History Venlafaxine HCl [Effexor 37.5mg 37.5 mg PO DAILY 04/05/18 04/05/18 History tablet] Prescriptions/Medication Reconciliation: No Action apixaban 5 mg tablet 5 mg PO BID #60 tab insulin lispro (U-100) 100 unit/mL subcutaneous pen See Label Instructions SUB-Q .with meals #15 ml insulin glargine (U-100) 100 unit/mL (3 mL) subcutaneous pen 20 unit SUB-Q BID #15 ml oxcarbazepine 600 mg tablet 1,200 mg PO BID #60 tab levetiracetam 500 mg tablet 2,500 mg PO BID #60 tab Lancets 0 strip .ROUTE .MEDSUPPLY Loperamide HCl [Imodium A-D] 2 mg PO Q6HP PRN #12 cap PRN Reason: Diarrhea Ondansetron [Zofran 4mg ODT] 4 mg PO Q8HP PRN #6 tab.rapdis PRN Reason: Nausea Lacosamide [Vimpat] 200 mg PO TID Venlafaxine HCl [Effexor 37.5mg tablet] 37.5 mg PO DAILY
== END 2018-04-07 18:00 | disposition left against medical advice (07) ==
LOC: ER 23:44 → ICU 04-06 09:11 → INTOOBSV 04-06 09:11 → ICU 04-06 10:11 → 2ND 04-06 15:55
PROVIDERS: ADMIT Emergency Medicine; ATTEND Emergency Medicine

== ENCOUNTER → 2018-05-13 15:08 | Outpatient (CLI) | payer MEDICAID, SELFPAY ==
--- NOTE | 2018-05-13 15:10 | MR_ITS ---
MR lumbar spine wo con, MR 3-d myelogram/MRCP HISTORY: Left-sided low back pain with bilateral leg pain ITS.REASON: LBP with radiculopathy ORDERING PHYSICIAN: ONESIMO Smith PATIENT AGE: 28 years Comparison: 01/30/2017 TECHNIQUE: Standard multiplanar multiecho sequences are performed without contrast. 3-D MIP and myelographic images are also rendered and reviewed FINDINGS: There is normal alignment. The spinal cord in that the L1-2 level. L1-L2, L2-L3, and L3-L4 have an unremarkable appearance. L4-L5: Minimal bulging disc with mild facet and ligamentum flavum hypertrophy with minimal bilateral lateral recess narrowing. L5-S1: Degenerative disc disease with bulging disc. There is been an interval right laminectomy.. Previously noted right paracentral disc herniation is no longer apparent. There is minimal bulging of the disc but no obvious neural impingement. IMPRESSION: 1. Minimal bulging disc L4-5 with mild facet and ligamentum flavum hypertrophy with minimal bilateral lateral recess narrowing. 2. Degenerative disc disease L5-S1 with bulging disc. There has been an interval right laminectomy.. Previously noted right paracentral disc herniation is no longer apparent. There is minimal bulging of the disc but no obvious neural impingement or recurrent herniated disc. IMPRESSION: And
== END ==
PROVIDERS: Family Provider Internal Medicine Adolescent Medicine; PCP Physician Assistant; Visit Provider Physician Assistant
DX: M54.16 Radiculopathy, lumbar region (principal)
CPT/HCPCS: 72148; 76376

== ENCOUNTER 2018-06-02 15:00 | Outpatient (RCR) | payer MEDICAID, SELFPAY ==
--- NOTE | 2018-05-23 14:58 | HMH.PTOPEV ---
PT Outpatient Evaluation Rehab PT Outpatient Evaluation Start: 05/23/18 14:19 Freq: Status: Active Protocol: Document 05/23/18 14:44 WALIELLA (Rec: 05/23/18 14:58 COMFORT [id number]) Electronically Signed By Armando Michele PT 05/23/18 14:44 Outpatient Therapy Subjective History Subjective History This is the initial Physical Therapy evaluation for Homa Bolton. Pt is a 28 y/o female referred to PT fro c/o LBP and BLE pain and paresthesia. Pt reports multiple bouts of LBP over the last few years w/ spinal laminectomy/discectomy done in 2017 on L5. Pt rpeorts this bout started ~ 3months ago w/ insidious onset . Pt reports MRI showed bulged disc. Chief Complaint Pain Stiff Paresthesia Weakness Symptom Type Throb Sharp Burning Shooting Symptoms Relieved By Rest/Positioning Symptoms Aggravated By Standing Bending/Stooping Physical Activity Walking Prior Functional Limitations None Current Functional Limitations Lifting Housework Standing Squatting Recreation Activity Walking Stairs Bending/Stooping Symptom Description Constant and Continuous Level of pain today (0-10) 6 Pain scale - at its best (0-10) 3 Pain scale - at its worst (0-10) 8 Lumbopelvic Eval Assistive device Assistive Devices None / NA Palapation tenderness bilateral thoracic spinal tenderness No lumbar spinal tenderness Yes paraspinal tenderness Yes buttock tenderness Yes tenderness over symphysis pubis No Lumbar/Sacral Palpation Findings Tenderness Muscle Guarding Lumbar/Sacral Palpation Overall Comment Pt TTP at both PSIS, and on B paraspinal MMs Accessory Movement L-spine Vertebrae Accessory Movements Central P/A [place] that Elicit Symptoms L2 bilateral L3 bilater
== END 2018-06-02 15:01 | disposition home or self-care (01) ==
LOC: PT 15:00
PROVIDERS: Family Provider Internal Medicine Adolescent Medicine; PCP Physician Assistant; Visit Provider Physician Assistant
DX: M54.5 Low back pain (principal); M79.605 Pain in left leg
CPT/HCPCS: 97010; 97014; 97110; 97140; 97163; G0283

== ENCOUNTER → 2018-06-11 11:05 | Outpatient (CLI) | payer MEDICAID, SELFPAY ==
[2018-06-11 12:44] LABS: Microscopic, Urine URINE MICROSCOPIC (MICROSCOPIC)
[2018-06-11 12:52] LABS: Basophils % 0.7 % (0.1-2.0); Eosinophils % 0.9 % (0.1-12.0); Hematocrit 38.4 % (37.0-47.0); Hemoglobin 11.7 g/dL (12.2-16.2); Lymphocytes # 1.2 K/mm3 (0.7-4.5); Lymphocytes % 22.5 K/mm3 (10-50); Mean Corpuscular HGB Conc 30.4 g/dL (31.8-35.4); Mean Corpuscular Hemoglobin 25.5 pg (27.0-31.2); Mean Corpuscular Volume 83.9 fl (81-99); Monocytes # 0.2 K/mm3 (0.1-1.0); Monocytes % 3.9 % (1.7-9.3); Neutrophils # 3.7 K/mm3 (1.8-7.8); Platelet Count 259 K/mm3 (142-424); Red Blood Count 4.58 M/mm3 (4.20-5.40); Red Cell Distribution Width 14.1 % (11.5-17.5); White Blood Count 5.1 K/mm3 (4.8-10.8)
[2018-06-11 13:02] LABS: Alanine Aminotransferase 21 U/L (12-78); Albumin Level 3.5 gm/dL (3.4-5.0); Albumin/Globulin Ratio 0.9 (1.1-1.8); Alkaline Phosphatase 135 U/L (46-116); Anion Gap 13.6 mEq/L (5-15); Aspartate Amino Transferase 11 U/L (15-37); Bilirubin,Total 0.3 mg/dL (0.2-1.0); Blood Urea Nitrogen 14 mg/dL (7-18); Carbon Dioxide 25 mmol/L (21.0-32.0); Chloride 98 mmol/L (98-107); Creatinine,Serum 0.77 mg/dL (0.55-1.02); Estimated Glomerular Filt Rate 90 ml/min (>60); GFR (African American) 109 ML/MIN (>60); Globulin 3.9 gm/dl (1.3-3.2); Potassium 4.6 mmoL/L (3.5-5.1); Sodium 132 mmol/L (136-145); Total Protein,Serum 7.4 gm/dL (6.4-8.2)
[2018-06-11 13:03] LABS: Appearance,Urine CLEAR (Clear); Bilirubin,Urine Negative (Negative); Blood, Urine Negative (Negative); Color,Urine YELLOW (Yellow); Glucose,Urine (UA) 3+ (Negative); Ketones,Urine 1+ (Negative); Leukocyte Esterase,Urine Negative (Negative); Nitrate,Urine Negative (Negative); Protein,Urine Negative (Negative); Specific Gravity, Urine <= 1.005 (1.005-1.030); Urobilinogen,Urine 0.2 EU/dl (0.2)
[2018-06-11 13:11] LABS: Glucose 563 mg/dL (74-106)
[2018-06-11 14:07] LABS: Bacteria,Urine Trace /lpf; WBC,Urine Occasional #/hpf (0-3)
== END ==
PROVIDERS: PCP Nurse Practitioner Family; Visit Provider Nurse Practitioner Family
DX: R78.81 Bacteremia (principal); E10.65 Type 1 diabetes mellitus with hyperglycemia
CPT/HCPCS: 80053; 81001; 85025; 87040; 87086; 87088; 87186; 87205

== ENCOUNTER → 2018-08-08 13:42 | Outpatient (CLI) | payer MEDICAID, SELFPAY ==
[2018-08-08 14:46] LABS: Anion Gap 15.8 mEq/L (5-15); Blood Urea Nitrogen 9 mg/dL (7-18); Calcium 8.4 mg/dL (8.5-10.1); Carbon Dioxide 20 mmol/L (21.0-32.0); Chloride 100 mmol/L (98-107); Creatinine,Serum 0.91 mg/dL (0.55-1.02); Estimated Glomerular Filt Rate 74 ml/min (>60); GFR (African American) 90 ML/MIN (>60); Potassium 4.8 mmoL/L (3.5-5.1); Sodium 131 mmol/L (136-145)
[2018-08-08 14:48] LABS: Glucose 572 mg/dL (74-106)
[2018-08-08 15:22] LABS: Basophils % 0.6 % (0.1-2.0); Eosinophils # 0.1 K/mm3 (0.0-0.4); Eosinophils % 1.5 % (0.1-12.0); Hemoglobin 12.3 g/dL (12.2-16.2); Lymphocytes # 1.1 K/mm3 (0.7-4.5); Lymphocytes % 23.3 K/mm3 (10-50); Mean Corpuscular HGB Conc 32.3 g/dL (31.8-35.4); Mean Corpuscular Hemoglobin 26.4 pg (27.0-31.2); Mean Corpuscular Volume 81.9 fl (81-99); Mean Platelet Volume 9.9 fl (7.4-10.4); Monocytes # 0.2 K/mm3 (0.1-1.0); Monocytes % 3.7 % (1.7-9.3); Neutrophils # 3.5 K/mm3 (1.8-7.8); Neutrophils % 70.9 % (37.0-80.0); Platelet Count 275 K/mm3 (142-424); Red Blood Count 4.64 M/mm3 (4.20-5.40); Red Cell Distribution Width 15.2 % (11.5-17.5); White Blood Count 4.9 K/mm3 (4.8-10.8)
== END ==
PROVIDERS: PCP Nurse Practitioner Family; Visit Provider Nurse Practitioner Obstetrics & Gynecology
DX: Z01.812 Encounter for preprocedural laboratory examination (principal); N92.0 Excessive and frequent menstruation with regular cycle; R10.2 Pelvic and perineal pain
CPT/HCPCS: 36415; 80048; 85025

== ENCOUNTER 2018-08-10 05:57 | Observation (INO) ==
--- NOTE | 2018-08-10 06:53 | Progress Note ---
[facility] Anesthesia Checklist - Patient Identification Patient Identification: Arm Band, Verbal (Name & ) - Structural Data Admitted From: Home [facility] for Planned Operative Procedure(s) Verified: Yes Verified Documents: Surgical Consent, History and Physical - NPO Status Verified Time NPO: 00:00 - Additional verifications Patient : No Anesthesia Reactions: No - Airway Assessment C-Spine Mobility Assessed: Yes TMJ Mobility Assessed: Yes Dentition: Good Dentition (Missing teeth) - Neurological Assessment Level of Consciousness: Awake Hx Seizures: Yes Numbness or tingling in extremities: No - Anesthesia Plan Anesthesia Risk discussed: Yes Anesthesia Plan: Verified ASA Class: III Anesthesia Type: General [facility] History I have reviewed the patient's past medical history: Yes Medical History: Reports:: Arrhythmia, Deep Vein Thrombosis, Depression, Diabetes Mellitus Type 1, Palpitations, Pulmonary Embolism, Seizures Denies:: Cancer, Diabetes Mellitus Type 2, Internal Pacemaker, MRSA Other Medical History: Reports: Anemia, Other (Right eye blindness, pituatary cyse) Laterality Cases: Bilateral: Other Other Surgeries: Yes: Appendectomy, Cholecystectomy, Dilation and Curettage, Tubal Ligation, Other (craniotomy, right eye surgery). No: Pacemaker Amputation: No Fractures: No - *Social History Educational Level: Completed High School Smoking Status: Never smoker Tobacco Type: smokeless tobacco #Yrs smoked (if former smoker): 4 Alcohol Intake: never Alcohol Intake Frequency:: holidays/special occasions only Substance Use Type: former substance user Occupational Status: disabled Housing: house Household Members: family - Psychiatric History Expresses thoughts of harming self/others: None Suicide Plan Description: No Plan Pschychiatric History:: Reports:: Depression *Family Hx:: Diabetes, Hypertension, Coronary Artery Disease
--- NOTE | 2018-08-10 09:58 | Progress Note ---
[facility] Anesthesia Record Part II Discharge Time: 10:25 Destination: Medical Surgical Department PACU nurse assessment reviewed?: Yes Patient Condition:: Good Anesthesia Complications:: None
--- NOTE | 2018-08-10 09:58 | Progress Note ---
[facility] Anesthesia Record Part I Intake, IV Amount: 950 Estimated blood loss (mL): 150 Urine output (mL): 100 Blood Products used (#): none Blood Pressure: 134/83 SaO2: 97 Pulse Rate: 93 Respiratory Rate: 12 Temperature: 99.1 F Patient is:: Awake, Stable Stable to PACU at:: 09:55
--- NOTE | 2018-08-10 09:59 | Operative Note ---
Date of procedure: 08/10/18 Pre-op Diagnosis:: Menorrhagia, pelvic pain Post-op Diagnosis:: Menorrhagia, pelvic pain Procedure performed:: Laparoscopically assisted vaginal hysterectomy and right salpingo-oophorectomy, left salpingectomy Surgeon:: Tab Torres MD Ase Certified Technician(s):: [employer] Echavar[employer]:: Other ([employer]) Anesthesia: GETA Estimated blood loss (mL): 150 Clinical Note:: She is a 28-year-old lady who complains of extremely heavy periods. She is tried of number of different options for her heavy bleeding and elected to have a laparoscopically assisted vaginal hysterectomy and bilateral salpingectomy. She also complained of chronic pelvic pain. Operative findings:: He had an aunt had normal-appearing uterus. The left tube and ovary appeared normal. The left ovary appeared somewhat polycystic. The right ovary was quite small and completely twisted upon itself and the tube as well as being adherent to the pelvic sidewall. It looked like she had a previous history of either an infected with torsion. This could explain her pelvic pain. The rest the deep pelvis appeared normal. There was no evidence of any endometriosis. Operative note:: She was taken to the operating room where general anesthesia was found be adequate. She was prepped and draped in the normal sterile fashion in the semi- lithotomy position. A weighted speculum was placed in the vagina and the anterior lip of the cervix was grasped with a tenaculum. I inserted a Kristina manipulator into the cervical os. I then changed gloves and injected 10 mL of 0.5 percent ropivacaine around the umbilicus. I made a small incision within the umbilicus and inserted a Veress needle into the abdominal cavity. The abdominal cavity was then insufflated with carbon dioxide gas to a pressure of 20 Fernanda mercury. I then inserted an 11 mm trocar under direct vision. I injected through and through the pubic hairline, made a small incision here and inserted a 5 mm trocar under direct vision. I identified the inferior epigastric arteries on the LEFT side and went lateral to these and injected through and through . I made a small incision and inserted an 11 mm trocar under direct vision. This was similarly performed on the patient's RIGHT side. The right round ligament was then grasped and cut with Harmonic scalpel. This was followed by the right adnexa. I then cut through and cauterized the right utero-ovarian ligament. I opened up the peritoneum anteriorly to the midline. I then took down the posterior aspect of the broad ligament to the level of the uterosacral ligament on the right side. The uterine arteries on the right side were then skeletonized. Hemoclips were placed across the uterine arteries and then the uterine arteries were cauterized with Harmonic scalpel adjacent to the cervix. We then further took down the bladder anteriorly. I grasped the left round ligament and cut through this with Harmonic scalpel. This was followed by the left tube. I then cauterized and cut the left utero- ovarian ligament with Harmonic scalpel. I then freed up the peritoneum anteriorly on the left side joining up with the midline. I then took down the posterior aspect of the broad ligament to the level of the uterosacral ligament. The uterine arteries on the left side were skeletonized. Hemoclips were applied to the uterine arteries. I then cauterized and cut the uterine arteries with Harmonic scalpel adjacent to the cervix. I freed up the bladder pillars on the R IGHT side and the LEFT side. I freed up the bladder anteriorly along the cervix. After assuring hemostasis and rinsing the pelvis well we then turned our attention to the fallopian tubes. The left fallopian tube was grasped at its distal end and cut along the meso salpinx. The tube was removed through the 11 mm trocar site. On the patient's right side the right ovary was adherent to the right pelvic sidewall as well as to the omentum. Using harmonic scalpel took down the omental tissue adjacent to the cervix bring this up completely. Since the ovary was twisted upon itself and adherent along the sidewall after having freed this up I elected to completely remove the right ovary. The tube itself was completely twisted upon itself and there was no blood supply to the tube. After assuring hemostasis we then turned our attention to the vaginal portion of the surgery. The patient was placed in the lithotomy position. A weighted spectrum was placed in vagina. The cervix was quite high in the vagina. The anterior and posterior lip of the cervix were grasped with Ford tenacula. I injected 20 mL of 1 percent Xylocaine with epinephrine circumferentially about the cervix. I then circumscribed the cervix with knife. I then opened up into the posterior cul-de-sac with Garcia scissors. Long weighted speculum was then placed through the defect. The left uterosacral ligament was then clamped cut suture-ligated and tagged. This was followed by the left cardinal ligament which was clamped cut and suture ligated and tied. I then clamped the right uterosacral ligament which was cut tied and tagged. This is followed by the right cardinal ligament which was clamped cut and suture ligated. I then opened up the and inspected the peritoneum and placed a Temo retractor through this defect. There were 2 small bits of tissue left and these were clamped cut and suture ligated. The uterus was then removed through the vagina. The posterior cuff was then closed using running 2-0 Vicryl suture in a locked fashion. This is followed by a Whitney suture which was placed through the posterior vagina and peritoneum. This was then passed through the left perirectal fascia. I then plicated across the posterior peritoneum and passed it through the right perirectal fascia. The suture was then passed through the peritoneum and vagina. I used 0 PDS for this. The peritoneum was then grasped anteriorly and using 2-0 PDS suture I closed the peritoneum in a pursestring fashion. I then was able to grasp the corner of the vagina and using 0 Vicryl suture in a locked fashion I closed the vagina from anterior to posterior from LEFT to RIGHT in a locked fashion.. A Koenig catheter was then placed in the bladder. Clear urine was seen to flow. We then turned our attention to the laparoscopic portion of the surgery once again. She was once of again placed in the semi-lithotomy position. I changed gloves. The abdominal cavity was insufflated with carbon oxide gas to a pressure of 20 mmHg. The pelvis was rinsed and once again hemostasis was assured. I let the gas into the abdomen to once again assuring hemostasis with decreased intra-abdominal pressure. I then elected to spray some Deo in the pelvis. Once again hemostasis was assured. The secondary trochars were then removed under direct vision. The sites were hemostatic. The gas was let out of the abdomen and the primary trocar and camera were removed together. No bowel seen to follow. The 11 mm trocar sites were closed deeply with 2-0 Vicryl suture followed by running subcuticular 4-0 Monocryl suture. The 5 mm trocar site was closed with subcuticular 4-0 Monocryl suture. Sterile dressings were applied. The patient tolerated the procedure well and was taken to the recovery room in excellent condition. All sponge instrument and needle counts were correct. Estimate a blood loss was approximately 150 mL. Condition: stable Disposition: PACU Specimens:: Uterus, right tube and ovary, left fallopian tube Complications:: None
[2018-08-10 16:02] LABS: Hematocrit 32.2 % (37.0-47.0); Hemoglobin 10.4 g/dL (12.2-16.2)
[2018-08-11 06:19] LABS: Basophils % 0.5 % (0.1-2.0); Eosinophils # 0.1 K/mm3 (0.0-0.4); Eosinophils % 1.7 % (0.1-12.0); Hematocrit 31.1 % (37.0-47.0); Hemoglobin 10.1 g/dL (12.2-16.2); Lymphocytes # 1.5 K/mm3 (0.7-4.5); Lymphocytes % 30.8 K/mm3 (10-50); Mean Corpuscular HGB Conc 32.6 g/dL (31.8-35.4); Mean Corpuscular Hemoglobin 26.6 pg (27.0-31.2); Mean Corpuscular Volume 81.4 fl (81-99); Mean Platelet Volume 9.1 fl (7.4-10.4); Monocytes # 0.2 K/mm3 (0.1-1.0); Monocytes % 4.1 % (1.7-9.3); Neutrophils % 62.8 % (37.0-80.0); Platelet Count 199 K/mm3 (142-424); Red Blood Count 3.82 M/mm3 (4.20-5.40); Red Cell Distribution Width 15.6 % (11.5-17.5); White Blood Count 4.7 K/mm3 (4.8-10.8)
[2018-08-11 06:27] LABS: Anion Gap 7.9 mEq/L (5-15); Potassium 3.9 mmoL/L (3.5-5.1)
--- NOTE | 2018-08-11 07:58 | Pharmacy Consult Notes ---
[facility] Pharmacy VTE Monitoring - Patient Demographics Admission date: 08/10/18 Report Date: 08/11/18 Time: 07:57 Allergies/Adverse Reactions: Patient Allergies buspirone [BUSPIRONE] Allergy (Unknown, Verified 08/09/18 14:28) nitrofurantoin [NITROFURANTOIN] Allergy (Unknown, Verified 08/09/18 14:28) sulfamethoxazole [From BACTRIM] Allergy (Unknown, Verified 08/09/18 14:28) topiramate [From TOPAMAX] Allergy (Unknown, Verified 08/09/18 14:28) trimethoprim [From BACTRIM] Allergy (Unknown, Verified 08/09/18 14:28) adhesive tape Adverse Reaction (Intermediate, Verified 08/09/18 14:28) SKIN IRRITATION Height: 1.6 m Weight: 78.018 kg - VTE Risk Labs: VTE Related Lab Results Hgb 10.1 g/dL (12.2-16.2) L 08/11/18 05:53 Hct 31.1 % (37.0-47.0) L 08/11/18 05:53 Plt Count 199 K/mm3 (142-424) D 08/11/18 05:53 BUN 10 mg/dL (7-18) 08/11/18 05:53 Creatinine 0.55 mg/dL (0.55-1.02) D 08/11/18 05:53 Estimated Creat Clear 189 mL/min (0-300) 08/11/18 05:53 - Prophylaxis VTE Prophylaxis Ordered?: Yes Types of VTE Prophylaxis: IPCS Thigh High Location of Applied Device: Bilateral Lower Extremeties - VTE Diagnosis Confirmed Treatment or plan recommended: Continue Current Treatment
--- NOTE | 2018-08-12 08:25 | Discharge Summary ---
General - General Admission date:: 08/10/18 Discharge date: 08/11/18 HPI HPI: She is a 28-year-old lady who complains of pelvic pain as well as heavy periods. After having discussed the risks and benefits she elected to have a laparoscopically assisted vaginal hysterectomy and bilateral salpingectomy. Hospital Course Hospital Course: Onset the 2017 she underwent a laparoscopic-assisted vaginal hysterectomy, left salpingectomy as well as right salpingo-oophorectomy. She had had some adhesions on the right side with torsion of the right ovary. As result of that I elected to remove her right ovary and tube. She has done well and has remained afebrile throughout her hospitalization. She has quite brittle diabetes and we have been controlling her sugars with a high intensity insulin sliding scale. Her pain is well controlled. She is eating and drinking and ambulating. She is voiding well. She is discharged home to follow-up with me in approximately 2 weeks time to she will continue with her insulin as well as the rest of her medications. She was given a prescription for Percocet 5/325, 30 tablets. She was given usual instructions with respect to limiting her activity, driving and sexual activity. Objective Vital signs: Temp Pulse Resp BP Pulse Ox 98.4 F 65 17 122/59 99 08/11/18 04:56 08/11/18 04:56 08/11/18 04:56 08/11/18 04:56 08/10/18 21:00 no acute distress - *Routine HEENT Exam Head: Present: normocephalic - *Routine Respiratory Exam Comments: She has good air entry bilaterally - *Routine Cardiovascular Exam Present: RRR - *Routine Abdominal Exam Present: soft, normoactive bowel sounds, surgical scars Results Labs on day of discharge: Labs from last 24 hours 08/11/18 08/11/18 08/11/18 05:53 05:53 04:47 WBC 4.7 L RBC 3.82 L Hgb 10.1 L Hct 31.1 L MCV 81.4 MCH 26.6 L MCHC 32.6 RDW 15.6 Plt Count 199 D MPV 9.1 Neut % (Auto) 62.8 Lymph % (Auto) 30.8 Logan % (Auto) 4.1 Eos % (Auto) 1.7 Baso % (Auto) 0.5 Neut # (Auto) 3.0 Lymph # (Auto) 1.5 Logan # (Auto) 0.2 Eos # (Auto) 0.1 Baso # (Auto) 0.0 Sodium 140 Potassium 3.9 Chloride 108 H Carbon Dioxide 28 D Anion Gap 7.9 BUN 10 Creatinine 0.55 D Estimated Creat Clear 189 Estimated GFR 133 Est GFR ( Amer) 160 D Glucose 168 H POC Glucose 115 H Calcium 8.0 L Urine Color Urine Appearance Urine pH Ur Specific Patton Urine Protein Urine Glucose (UA) Urine Ketones Urine Blood Urine Nitrate Urine Bilirubin Urine Urobilinogen Ur Leukocyte Esterase Urine RBC Urine WBC Ur Squamous Epith Cells Ur Transition Epith Cell Urine Bacteria Fine Granular Casts 08/11/18 08/10/18 08/10/18 01:29 Unknown 20:33 WBC RBC Hgb Hct MCV MCH MCHC RDW Plt Count MPV Neut % (Auto) Lymph % (Auto) Logan % (Auto) Eos % (Auto) Baso % (Auto) Neut # (Auto) Lymph # (Auto) Logan # (Auto) Eos # (Auto) Baso # (Auto) Sodium Potassium Chloride Carbon Dioxide Anion Gap BUN Creatinine Estimated Creat Clear Estimated GFR Est GFR ( Amer) Glucose POC Glucose 117 H 324 H* Calcium Urine Color Yellow Urine Appearance Sl cloudy Urine pH 6.0 Ur Specific Patton >= 1.030 Urine Protein 2+ Urine Glucose (UA) 2+ Urine Ketones Negative Urine Blood Negative Urine Nitrate Negative Urine Bilirubin Negative Urine Urobilinogen 0.2 Ur Leukocyte Esterase Negative Urine RBC 3-5 Urine WBC Occasional Ur Squamous Epith Cells Occasional Ur Transition Epith Cell 20-50 Urine Bacteria 1+ Fine Granular Casts Occ 08/10/18 08/10/18 08/10/18 16:36 15:56 11:36 WBC RBC Hgb 10.4 L Hct 32.2 L MCV MCH MCHC RDW Plt Count MPV Neut % (Auto) Lymph % (Auto) Logan % (Auto) Eos % (Auto) Baso % (Auto) Neut # (Auto) Lymph # (Auto) Logan # (Auto) Eos # (Auto) Baso # (Auto) Sodium Potassium Chloride Carbon Dioxide Anion Gap BUN Creatinine Estimated Creat Clear Estimated GFR Est GFR ( Amer) Glucose POC Glucose 198 H 133 H Calcium Urine Color Urine Appearance Urine pH Ur Specific Patton Urine Protein Urine Glucose (UA) Urine Ketones Urine Blood Urine Nitrate Urine Bilirubin Urine Urobilinogen Ur Leukocyte Esterase Urine RBC Urine WBC Ur Squamous Epith Cells Ur Transition Epith Cell Urine Bacteria Fine Granular Casts 08/10/18 08/10/18 08/10/18 10:51 10:18 09:55 WBC RBC Hgb Hct MCV MCH MCHC RDW Plt Count MPV Neut % (Auto) Lymph % (Auto) Logan % (Auto) Eos % (Auto) Baso % (Auto) Neut # (Auto) Lymph # (Auto) Logan # (Auto) Eos # (Auto) Baso # (Auto) Sodium Potassium Chloride Carbon Dioxide Anion Gap BUN Creatinine Estimated Creat Clear Estimated GFR Est GFR ( Amer) Glucose POC Glucose 221 H 287 H 298 H Calcium Urine Color Urine Appearance Urine pH Ur Specific Patton Urine Protein Urine Glucose (UA) Urine Ketones Urine Blood Urine Nitrate Urine Bilirubin Urine Urobilinogen Ur Leukocyte Esterase Urine RBC Urine WBC Ur Squamous Epith Cells Ur Transition Epith Cell Urine Bacteria Fine Granular Casts DS: Diagnosis - Discharge Diagnosis (1) Menorrhagia Status: Acute (2) Pelvic pain Status: Acute (3) Ovarian torsion Status: Acute Discharge Plan - Patient Discharge Instructions ACTIVITY: No heavy lifting DIET: continue same diet - Follow up Plan Disposition: Home, Self-Fdc Medications: Home Medications Medication Instructions Recorded Confirmed Type Lacosamide [Vimpat] 200 mg PO TID 01/29/18 08/10/18 History Venlafaxine HCl [Effexor 37.5mg 37.5 mg PO DAILY 04/05/18 08/10/18 History tablet] Insulin Glargine,Hum.rec.anlog 26 unit SUB-Q BID 08/09/18 08/10/18 History [Basaglar Kwikpen U-100] cephALEXin [Keflex 500mg Cap] 500 mg PO TID 08/09/18 08/10/18 History Baclofen [Lioresal 10mg tablet] 10 mg PO BID 08/10/18 08/10/18 History Prescriptions/Medication Reconciliation: New Oxycodone HCl/Acetaminophen [Percocet 5/325mg tablet] 1 - 2 tab PO Q4-6H PRN #30 tab PRN Reason: Severe Pain Continue insulin lispro (U- 100) 100 unit/mL subcutaneous pen See Rx Instructions SUB- Q .with meals #15 ml oxcarbazepine 600 mg tablet 1,200 mg PO BID #60 tab apixaban 5 mg tablet 5 mg PO BID #60 tab levetiracetam 500 mg tablet 2,500 mg PO BID #60 tab Ondansetron [Zofran 4mg ODT] 4 mg PO Q8HP PRN #6 tab.rapdis PRN Reason: Nausea cephALEXin [Keflex 500mg Cap] 500 mg PO TID Baclofen [Lioresal 10mg tablet] 10 mg PO BID Lacosamide [Vimpat] 200 mg PO TID Venlafaxine HCl [Effexor 37.5mg tablet] 37.5 mg PO DAILY Insulin Glargine,Hum.rec.anlog [Justyna Stanley U-100] 26 unit SUB-Q BID
== END 2018-08-11 13:00 | disposition home or self-care (01) ==
LOC: OR 05:57 → OB 05:57
PROVIDERS: ADMIT Nurse Practitioner Obstetrics & Gynecology; ATTEND Nurse Practitioner Obstetrics & Gynecology

== ENCOUNTER 2018-09-03 14:55 | Inpatient (IN) ==
[2018-09-03 15:36] LABS: Basophils # 0.1 K/mm3 (0-0.2); Basophils % 0.8 % (0.1-2.0); Eosinophils # 0.2 K/mm3 (0.0-0.4); Eosinophils % 2.2 % (0.1-12.0); Hemoglobin 11.8 g/dL (12.2-16.2); Lymphocytes # 1.4 K/mm3 (0.7-4.5); Mean Corpuscular HGB Conc 31.1 g/dL (31.8-35.4); Mean Corpuscular Hemoglobin 26.3 pg (27.0-31.2); Mean Corpuscular Volume 84.5 fl (81-99); Mean Platelet Volume 8.1 fl (7.4-10.4); Monocytes # 0.3 K/mm3 (0.1-1.0); Monocytes % 4.1 % (1.7-9.3); Neutrophils # 5.5 K/mm3 (1.8-7.8); Neutrophils % 73.9 % (37.0-80.0); Platelet Count 327 K/mm3 (142-424); Red Cell Distribution Width 14.7 % (11.5-17.5); White Blood Count 7.4 K/mm3 (4.8-10.8)
--- NOTE | 2018-09-03 15:39 | Emergency Department Note ---
ED Disposition Clinical Impression: DKA (diabetic ketoacidoses) Disposition: Still a Patient Condition on Discharge: Fair Instructions: DI for Hyperglycemia -- Adult Referrals: Anum Guevara APRN [Primary Care Provider] - - Critical Care Critical Care Time: No Attestation: On 09/03/18, the high probability of a clinically significant, sudden or life threatening deterioration of the following system(s) required my full and direct attention, intervention and personal management. The time I documented below is in addition to time spent performing reported procedures but includes the following listed in this critical care notation. Medical Decision Making - Jamari Inquiry Pt receiving controlled substance: No Jamari was queried for this patient: No Vital Signs: 09/03/18 15:12 Temperature 98.1 F Temperature Source Oral Pulse Rate [Right Brachial] 75 Respiratory Rate 18 Blood Pressure [Right Arm] 123/78 Blood Pressure Mean [Right Arm] 93 Blood Pressure Source [Right Arm] Automatic Cuff Blood Pressure Position [Right Arm] Sitting 02 Sat by Pulse Oximetry 98 Oxygen Delivery Method Room Air - Lab Data Lab Results 09/03/18 15:05: WBC 7.4, RBC 4.50, Hgb 11.8 L, Hct 38.0, MCV 84.5, MCH 26.3 L, MCHC 31.1 L, RDW 14.7, Plt Count 327, MPV 8.1, Neut % (Auto) 73.9, Lymph % (Auto) 19.0, [place] % (Auto) 4.1, Eos % (Auto) 2.2, Baso % (Auto) 0.8, Neut # (Auto) 5.5, Lymph # (Auto) 1.4, [place] # (Auto) 0.3, Eos # (Auto) 0.2, Baso # (Auto) 0.1 09/03/18 15:05: Sodium 130 L, Potassium 4.6, Chloride 97 L, Carbon Dioxide 25, Anion Gap 12.6, BUN 27 H, Creatinine 0.96, Estimated Creat Clear 104, Estimated GFR 70, Est GFR ( Amer) 84, Glucose 795 H*, Calcium 8.6, Total Bilirubin 0.3, AST 10 L, ALT 16, Alkaline Phosphatase 207 H, Total Creatine Kinase 64, CK- MB (CK-2) 0.9, CK-MB (CK-2) Rel Index 1.4, Troponin I < 0.02, Total Protein 7.9, Albumin 3.1 L, Globulin 4.8 H, Albumin/Globulin Ratio 0.6 L 09/03/18 15:07: Lactate 1.0 09/03/18 15:07: Urine Color Straw, Urine Appearance Clear, Urine pH 6.0, Ur Specific [place] <= 1.005, Urine Protein Negative, Urine Glucose (UA) 3+, Urine Ketones 1+, Urine Blood 3+, Urine Nitrate Negative, Urine Bilirubin Negative, Urine Urobilinogen 0.2, Ur Leukocyte Esterase Negative, Urine RBC None, Urine WBC 3-5, Ur Squamous Epith Cells 3-5, Urine Bacteria Trace 09/03/18 15:07: Acetone Level Small 09/03/18 15:36: Specimen Source Right radial, O2 % Room air, ABG pH 7.41, ABG pCO2 30.9 L, ABG pO2 122.9 H, ABG HCO3 19.1 L, ABG Total CO2 20.0 L, ABG O2 Saturation 98, ABG Base Excess -5.6 L, Agustin Test Acceptable Result diagrams: 09/03/18 15:05 09/03/18 15:05 Orders (Tests/Meds): ED MEDICATIONS Discontinued Medications Generic Name Dose Route Start Last Admin Trade Name Freq PRN Reason Stop Dose Admin Sodium Chloride 1,000 mls @ 999 mls/hr 09/03/18 15:30 09/03/18 15:33 Sod Chlor 0.9% 1000ml Bag IV 09/03/18 16:30 999 mls/hr .Q1H1M DALIA Administration Iopamidol 75 ml 09/03/18 17:06 09/03/18 17:07 [id number]; 75ml Vial IV 09/03/18 17:07 75 ml ONCE ONE Administration Protocol Sodium Chloride 10 ml 09/03/18 17:06 09/03/18 17:07 Rad-Saline Flush 10ml Syringe IV 09/03/18 17:07 10 ml ONCE ONE Administration ORDERS Category Date Time Status CT abdomen pelvis w con Stat Cat Scan 09/03/18 15:33 Taken XR chest portable Stat Exams 09/03/18 15:19 Taken Urinalysis and Microscopic Stat Lab 09/03/18 15:07 Ordered Blood Culture Stat Micro 09/03/18 15:07 Received Medical Decision Narrative: Patient tolerated IV fluids her blood sugar was 795 with a small acetone I called Dr. Ponce who is covering for Dr. Lucia and agreed to admit her for IV fluids and IV insulin. General Adult HPI - General Chief complaint: Hyper/Hypoglycemia Stated complaint: ABDOMINAL PAIN Time Seen by Provider: 09/03/18 15:20 Mode of Arrival: EMS Limitations: No Limitations Description of Symptoms (Recalled from ER Triage Doc. by RN): FEELING TIRED LAST COUPLE DAYS; NO ISSUES UNTIL YESTERDAY WITH CONTROL OF FSBS - History of Present Illness HPI narrative: 28 years old white female with history of independent diabetes mellitus with complications. Yesterday , the patient developed nausea and loose bowel movement this morning she found her sugar is high on her glucometer. He contacted EMS and was brought to the ED for evaluation. Denies having fever chills hematemesis coffee-ground emesis melanotic stool bleeding per rectum she denies dysuria hematuria frequency. He is status post hysterectomy and she complains of lower abdominal pain and ongoing vaginal bleeding because she is on Eliquis for prior pulmonary embolus. She is on Eliquis 5 mg p.o. twice daily for the past year. He denies shortness of breath palpitations chest pain dizziness or syncope. Onset (ago): day(s) (diarrhea x 1 started yeasteday.) Radiation: non-radiation Severity: mild Relieving factors: none Exacerbating factors: none Associated symptoms: other (She said her second complaint about lower abdominal pain and vaginal bleeding status post hysterectomy. ) Treatments prior to arrival: other (It is an Eliquis 5 mg p.o. twice daily.) - Related Data Home Medications Medication Instructions Recorded Confirmed Lacosamide [Vimpat] 200 mg PO TID 01/29/18 08/10/18 Venlafaxine HCl [Effexor 37.5mg 37.5 mg PO DAILY 04/05/18 08/10/18 tablet] Insulin Glargine,Hum.rec.anlog 26 unit SUB-Q BID 08/09/18 08/10/18 [Basaglar Kwikpen U-100] cephALEXin [Keflex 500mg Cap] 500 mg PO TID 08/09/18 08/10/18 Baclofen [Lioresal 10mg tablet] 10 mg PO BID 08/10/18 08/10/18 Previous Rx's Medication Instructions Recorded Ondansetron [Zofran 4mg ODT] 4 mg PO Q8HP PRN #6 tab.rapdis 03/19/18 apixaban 5 mg tablet 5 mg PO BID #60 tab 05/03/18 oxcarbazepine 600 mg tablet 1,200 mg PO BID #60 tab 05/03/18 Oxycodone HCl/Acetaminophen 1 - 2 tab PO Q4-6H PRN #30 tab 08/11/18 [Percocet 5/325mg tablet] insulin lispro (U- 100) 100 See Rx Instructions SUB-Q .with 08/24/18 unit/mL subcutaneous pen meals #15 ml levetiracetam 500 mg tablet 2,500 mg PO BID #60 tab 08/24/18 polyethylene glycol 3350 17 gram 17 g PO DAILY #168 each 08/25/18 oral powder packet Allergies Allergy/AdvReac Type Severity Reaction Status Date / Time buspirone [BUSPIRONE] Allergy Unknown Verified 08/25/18 10:04 nitrofurantoin Allergy Unknown Verified 08/25/18 10:04 [NITROFURANTOIN] sulfamethoxazole Allergy Unknown Verified 08/25/18 10:04 [From BACTRIM] topiramate [From TOPAMAX] Allergy Unknown Verified 08/25/18 10:04 trimethoprim [From BACTRIM] Allergy Unknown Verified 08/25/18 10:04 adhesive tape AdvReac Intermediate SKIN Verified 08/25/18 10:04 IRRITATION H History I have reviewed the patient's past medical history: Yes Medical History: Reports:: Arrhythmia, Deep Vein Thrombosis, Depression, Diabetes Mellitus Type 1, Palpitations, Pulmonary Embolism, Seizures Denies:: Cancer, Diabetes Mellitus Type 2, MRSA Other Medical History: Reports: Anemia, Other. Denies: Blood Transfusion Reaction Other Surgeries: Yes: Appendectomy, Cholecystectomy, Dilation and Curettage, Tubal Ligation, Other Amputation: No Fractures: No Comment: Ablation 10/30/2016 - Social History Educational Level: Completed High School Smoking Status: Current some day smoker Tobacco Type: smokeless tobacco #Yrs smoked (if former smoker): 4 Alcohol Intake: never Alcohol Intake Frequency:: holidays/special occasions only Substance Use Type: former substance user Occupational Status: disabled Housing: house Household Members: family - Psychiatric History Expresses thoughts of harming self/others: None Suicide Plan Description: No Plan Pschychiatric History:: Reports:: Depression Family Hx:: Diabetes, Hypertension, Coronary Artery Disease ROS Obtained: Yes All systems reviewed & no additional complaints Physical Exam - General General appearance: alert, in no apparent distress - Head Head exam: atraumatic, normocephalic, normal inspection - Eye Eye exam: Present: normal appearance, PERRL, EOMI, other (Right eye cataract.). Absent: scleral icterus, nystagmus - ENT ENT exam: Present: normal exam, normal oropharynx, mucous membranes moist, TM's normal bilaterally, normal external ear exam - Neck Neck exam: Present: normal inspection, full ROM, trachea midline. Absent: tenderness, meningismus, lymphadenopathy - Chest Chest inspection: Present: normal inspection, symmetric chest wall rise. Absent: tenderness - Respiratory Respiratory exam: Present: normal lung sounds bilaterally. Absent: respiratory distress - Cardiovascular Cardiovascular exam: Present: regular rate, normal rhythm, normal heart sounds. Absent: JVD - Abdominal Exam Abdominal exam: Present: soft, tenderness, rigidity, normal bowel sounds, other (Diffuse lower abdominal tenderness with voluntary guarding no focal tenderness no rebound no cross tenderness. ). Absent: distention, guarding, rebound, Guerra's sign, tenderness at McBurney's Point - External exam: Present: normal external exam - Extremities Exam Extremities exam: Present: normal inspection, full ROM, normal capillary refill. Absent: calf tenderness - Back Exam Back exam: Present: normal inspection. Absent: tenderness - Neurological Exam Neurological exam: Present: alert, oriented X3, CN II-XII intact, motor sensory deficit, reflexes normal - Psychiatric Psychiatric exam: Present: normal affect, normal mood - Skin Skin exam: Present: warm, dry, intact, normal color - Lymphatic Lymphatic Findings: no adenopathy
[2018-09-03 15:40] LABS: Microscopic, Urine URINE MICROSCOPIC (MICROSCOPIC)
[2018-09-03 15:41] LABS: Appearance,Urine CLEAR (Clear); Bilirubin,Urine Negative (Negative); Blood, Urine 3+ (Negative); Color,Urine STRAW (Yellow); Glucose,Urine (UA) 3+ (Negative); Ketones,Urine 1+ (Negative); Leukocyte Esterase,Urine Negative (Negative); Protein,Urine Negative (Negative); Specific Gravity, Urine <= 1.005 (1.005-1.030); Urobilinogen,Urine 0.2 EU/dl (0.2)
[2018-09-03 16:05] LABS: Alanine Aminotransferase 16 U/L (12-78); Albumin Level 3.1 gm/dL (3.4-5.0); Albumin/Globulin Ratio 0.6 (1.1-1.8); Alkaline Phosphatase 207 U/L (46-116); Anion Gap 12.6 mEq/L (5-15); Aspartate Amino Transferase 10 U/L (15-37); Bilirubin,Total 0.3 mg/dL (0.2-1.0); Blood Urea Nitrogen 27 mg/dL (7-18); Calcium 8.6 mg/dL (8.5-10.1); Carbon Dioxide 25 mmol/L (21.0-32.0); Chloride 97 mmol/L (98-107); Creatine Kinase 64 U/L (26-192); Globulin 4.8 gm/dl (1.3-3.2); Potassium 4.6 mmoL/L (3.5-5.1); Sodium 130 mmol/L (136-145); Total Protein,Serum 7.9 gm/dL (6.4-8.2)
[2018-09-03 16:07] LABS: ABG Base Excess -5.6 mmol/L (-2.4-2.3); ABG HCO3 19.1 mmhg (22.0-26.0); ABG Oxygen Saturation 98 % (90-100); ABG PCO2 30.9 mmhg (35.0-45.0); ABG PH 7.41 mmol/L (7.35-7.45); ABG PO2 122.9 mmhg (80-100)
[2018-09-03 16:11] LABS: Glucose 795 mg/dL (74-106)
[2018-09-03 16:16] LABS: Allen's Test Acceptable; Oxygen ROOM AIR %
[2018-09-03 16:34] LABS: Bacteria,Urine Trace /lpf
[2018-09-03 22:20] LABS: Anion Gap 8.8 mEq/L (5-15); Calcium 8.4 mg/dL (8.5-10.1); Phosphorous 2.7 mg/dL (2.4-4.9); Potassium 3.8 mmoL/L (3.5-5.1)
[2018-09-04 06:19] LABS: Basophils % 0.6 % (0.1-2.0); Eosinophils # 0.2 K/mm3 (0.0-0.4); Eosinophils % 3.7 % (0.1-12.0); Hematocrit 32.2 % (37.0-47.0); Lymphocytes # 1.6 K/mm3 (0.7-4.5); Lymphocytes % 25.5 K/mm3 (10-50); Mean Corpuscular HGB Conc 32.5 g/dL (31.8-35.4); Mean Corpuscular Hemoglobin 26.1 pg (27.0-31.2); Mean Corpuscular Volume 80.2 fl (81-99); Mean Platelet Volume 8.1 fl (7.4-10.4); Monocytes # 0.2 K/mm3 (0.1-1.0); Monocytes % 3.5 % (1.7-9.3); Neutrophils # 4.2 K/mm3 (1.8-7.8); Neutrophils % 66.7 % (37.0-80.0); Platelet Count 259 K/mm3 (142-424); Red Blood Count 4.02 M/mm3 (4.20-5.40); Red Cell Distribution Width 15.1 % (11.5-17.5); White Blood Count 6.2 K/mm3 (4.8-10.8)
[2018-09-04 06:28] LABS: Albumin Level 2.6 gm/dL (3.4-5.0); Albumin/Globulin Ratio 0.6 (1.1-1.8); Anion Gap 10.7 mEq/L (5-15); Bilirubin,Total 0.3 mg/dL (0.2-1.0); Calcium 8.1 mg/dL (8.5-10.1); Globulin 4.1 gm/dl (1.3-3.2); Phosphorous 2.4 mg/dL (2.4-4.9); Potassium 3.7 mmoL/L (3.5-5.1); Total Protein,Serum 6.7 gm/dL (6.4-8.2)
[2018-09-04 06:44] LABS: Hemoglobin 10.5 g/dL (12.2-16.2)
--- NOTE | 2018-09-04 07:24 | History & Physical Report ---
*Admission Date: 09/03/18 *Chief complaint: Abdominal pain/hyperglycemia *History of present illness: 28-year-old white female with approximately 12-15-year history of type 1 diabetes, whose history is riddled with multiple admissions for DKA, medical noncompliance, long stretches of non-attendance at appointments/changing to multiple physicians over the past for 5 years. She also recently had hysterectomy by DENTAL TECHNICIAN APPRENTICE here at [facility], approximately 3 weeks ago. She told me that she reported to the emergency department yesterday evening because of severe abdominal pain. She notes that over the past couple of days her abdomen is been hurting and she has had painful bowel movements that resulted in a pasty like large bowel movement without blood. In the emergency department found to have glucose levels above 700. Was admitted to hospital for "DKA" apparently because she had the presence of small acetone levels in her serum. Of note she was actually not acidotic on blood gas readings or on CO2 levels on her basic metabolic panel. Of note, the nursing staff then informed me that she complained of vaginal bleeding on review of systems in the ER. She underwent hysterectomy recently here at [facility] it was uncomplicated. She notes she has no vaginal bleeding this morning. This morning after a night of IV fluid she feels much improved. She denies noncompliance with her shots, reports that until before her hysterectomy her sugar was better and mostly "in the 200s." She denies recent fever, urinary symptoms, but does report a mild cough. [facility] History I have reviewed the patient's past medical history: Yes Medical History: Reports:: Arrhythmia, Deep Vein Thrombosis, Depression, Diabetes Mellitus Type 1, Palpitations, Pulmonary Embolism, Seizures Denies:: Cancer, Diabetes Mellitus Type 2, MRSA Other Medical History: Reports: Anemia, Other. Denies: Blood Transfusion Reaction Other Surgeries: Yes: Appendectomy, Cholecystectomy, Dilation and Curettage, Hysterectomy-Partial ("everything but left ovary"), Tubal Ligation, Other Amputation: No Fractures: No - *Social History Educational Level: Completed High School Smoking Status: Current some day smoker Tobacco Type: smokeless tobacco #Yrs smoked (if former smoker): 4 Alcohol Intake: current Alcohol Intake Frequency:: a few times a month Substance Use Type: former substance user Occupational Status: disabled Housing: house Household Members: family Comment: Marked medical noncompliance - Psychiatric History Expresses thoughts of harming self/others: None Suicide Plan Description: No Plan Pschychiatric History:: Reports:: Depression *Family Hx:: Diabetes, Hypertension, Coronary Artery Disease Review of Systems - Review of Systems Review of systems:: pertinent systems reviewed and negative unless documented below - Constitutional Denies body ache(s), Denies chills, Denies fever(s) - Eyes Denies blurry vision - ENT Denies abnormal hearing - *Cardiovascular Denies chest pain, Denies chest pain at rest, Denies chest pain with activity, Denies shortness of breath, Denies irregular heart rhythm - *Respiratory Reports cough, Denies change in phlegm color, Denies chest congestion, Denies shortness of breath, Denies shortness of breath with activity, Denies excessive phlegm production - *Gastrointestinal Reports abdominal pain, Denies coffee ground vomit, Denies constipation, Denies feeling full early, Denies excessive passing of gas, Denies vomiting blood, Denies bright, red blood in stools - *Genitourinary Reports abnormal vaginal bleeding - *Musculoskeletal Denies abnormal walking, Denies joint pain - Integumentary/Breasts Denies change in skin color, Denies changing lesions - *Neurologic Denies abnormal walking, Denies behavioral changes, Denies dizziness - Psychiatric Denies abnormal sleep pattern - Endocrine Reports increased thirst, Denies cold intolerance, Denies excessive sweating, Denies rapid, pounding, or irregular heartbeat - Hematologic/Lymphatic Denies easy bleeding Meds Home Medications Medication Instructions Recorded Confirmed Type Lacosamide [Vimpat] 200 mg PO TID 01/29/18 08/10/18 History Venlafaxine HCl [Effexor 37.5mg 37.5 mg PO DAILY 04/05/18 08/10/18 History tablet] Insulin Glargine,Hum.rec.anlog 26 unit SUB-Q BID 08/09/18 08/10/18 History [Basaglar Kwikpen U-100] Baclofen [Lioresal 10mg tablet] 10 mg PO BID 08/10/18 08/10/18 History Allergies Allergy/AdvReac Type Severity Reaction Status Date / Time buspirone [BUSPIRONE] Allergy Unknown Verified 09/03/18 19:06 nitrofurantoin Allergy Unknown Verified 09/03/18 19:06 [NITROFURANTOIN] sulfamethoxazole Allergy Unknown Verified 09/03/18 19:06 [From BACTRIM] topiramate [From TOPAMAX] Allergy Unknown Verified 09/03/18 19:06 trimethoprim [From BACTRIM] Allergy Unknown Verified 09/03/18 19:06 adhesive tape AdvReac Intermediate SKIN Verified 09/03/18 19:06 IRRITATION Exam Vital signs and Labs for Last 24 Hours: Temp Pulse Resp BP Pulse Ox 98.1 F 63 12 114/76 99 09/04/18 04:00 09/04/18 06:00 09/04/18 06:00 09/04/18 06:00 09/04/18 06:00 Laboratory Results - last 24 hr 09/03/18 15:05: WBC 7.4, RBC 4.50, Hgb 11.8 L, Hct 38.0, MCV 84.5, MCH 26.3 L, MCHC 31.1 L, RDW 14.7, Plt Count 327, MPV 8.1, Neut % (Auto) 73.9, Lymph % (Auto) 19.0, [place] % (Auto) 4.1, Eos % (Auto) 2.2, Baso % (Auto) 0.8, Neut # (Auto) 5.5, Lymph # (Auto) 1.4, [place] # (Auto) 0.3, Eos # (Auto) 0.2, Baso # (Auto) 0.1 09/03/18 15:05: Sodium 130 L, Potassium 4.6, Chloride 97 L, Carbon Dioxide 25, Anion Gap 12.6, BUN 27 H, Creatinine 0.96, Estimated Creat Clear 104, Estimated GFR 70, Est GFR ( Amer) 84, Glucose 795 H*, Calcium 8.6, Total Bilirubin 0.3, AST 10 L, ALT 16, Alkaline Phosphatase 207 H, Total Creatine Kinase 64, CK- MB (CK-2) 0.9, CK-MB (CK-2) Rel Index 1.4, Troponin I < 0.02, Total Protein 7.9, Albumin 3.1 L, Globulin 4.8 H, Albumin/Globulin Ratio 0.6 L 09/03/18 15:07: Lactate 1.0 09/03/18 15:07: Urine Color Straw, Urine Appearance Clear, Urine pH 6.0, Ur Specific [place] <= 1.005, Urine Protein Negative, Urine Glucose (UA) 3+, Urine Ketones 1+, Urine Blood 3+, Urine Nitrate Negative, Urine Bilirubin Negative, Urine Urobilinogen 0.2, Ur Leukocyte Esterase Negative, Urine RBC None, Urine WBC 3-5, Ur Squamous Epith Cells 3-5, Urine Bacteria Trace 09/03/18 15:07: Acetone Level Small 09/03/18 15:36: Specimen Source Right radial, O2 % Room air, ABG pH 7.41, ABG pCO2 30.9 L, ABG pO2 122.9 H, ABG HCO3 19.1 L, ABG Total CO2 20.0 L, ABG O2 Saturation 98, ABG Base Excess -5.6 L, Agustin Test Acceptable 09/03/18 20:38: POC Glucose 492 H* 09/03/18 22:00: Sodium 132 L, Potassium 3.8, Chloride 100, Carbon Dioxide 27, Anion Gap 8.8, BUN 16 D, Creatinine 0.69 D, Estimated Creat Clear 155, Estimated GFR 102, Est GFR ( Amer) 123 D, Glucose 366 H D, Calcium 8.4 L , Phosphorus 2.7, Magnesium 1.6 09/03/18 22:00: Acetone Level None detected 09/03/18 22:14: POC Glucose 378 H* 09/04/18 06:05: WBC 6.2, RBC 4.02 L, Hgb 10.5 L D, Hct 32.2 L, MCV 80.2 L, MCH 26.1 L, MCHC 32.5, RDW 15.1, Plt Count 259, MPV 8.1, Neut % (Auto) 66.7, Lymph % (Auto) 25.5, [place] % (Auto) 3.5, Eos % (Auto) 3.7, Baso % (Auto) 0.6, Neut # (Auto) 4.2, Lymph # (Auto) 1.6, [place] # (Auto) 0.2, Eos # (Auto) 0.2, Baso # (Auto) 0.0 09/04/18 06:05: Sodium 135 L, Potassium 3.7, Chloride 103, Carbon Dioxide 25, Anion Gap 10.7, BUN 12, Creatinine 0.49 L D, Estimated Creat Clear 222, Estimated GFR 151, Est GFR ( Amer) 183 D, Glucose 257 H D, Calcium 8.1 L , Phosphorus 2.4, Magnesium 1.6, Total Bilirubin 0.3, AST 10 L, ALT 13, Alkaline Phosphatase 158 H, Total Protein 6.7, Albumin 2.6 L D, Globulin 4.1 H, Albumin/Globulin Ratio 0.6 L 09/04/18 06:05: Acetone Level None detected I & O for Last 24 hours: Intake & Output 09/01/18 09/02/18 09/03/18 09/04/18 11:59 11:59 11:59 11:59 Intake Total 1665 / 1665 Output Total 1949 / 1949 Balance -285 / -285 Weight 180 lb 1 oz Narrative: Eye abnormality as previously noted, no new changes. No scleral icterus. No jaundice. No JVD. Oropharynx is clear. Lungs have good air movement. Deep breathing causes a mild cough. There is no sputum production. Heart rate regular. No murmurs. Abdomen is slightly tender. Surgical scar is well-healing. No CVA tenderness. No edema or clubbing. She has several colored tattoos on each forearm. Otherwise no skin rash or cyanosis noted. Assessment and Plan (1) Abdominal pain Current visit: Yes Status: Acute Category: Medical Code(s): R10.9 - Unspecified abdominal pain Somewhat vague history. White count and other labs reviewed. Possibly a consequence of her hyperglycemia or postoperative status. Continue to monitor. Seems to be improved. (2) Cough Current visit: Yes Status: Acute Category: Medical Code(s): R05 - Cough Possible consequence of viral syndrome that might have set off her hyperglycemia. Check chest x-ray now that she is better hydrated. (3) Vaginal bleeding Current visit: Yes Status: Acute Category: Medical Code(s): N93.9 - Abnormal uterine and vaginal bleeding, unspecified Postoperative status-ask DENTAL TECHNICIAN APPRENTICE to evaluate. (4) Diabetes mellitus, insulin dependent (IDDM), uncontrolled Current visit: No Status: Acute Qualifiers: Glycemic state: with hyperglycemia Qualified Code(s): E10.65 - Type 1 diabetes mellitus with hyperglycemia Category: Medical Code(s): E10.65 - Type 1 diabetes mellitus with hyperglycemia Patient does not have DKA. Has not been acidotic. Her ketones are now negative and her serum. Plan to continue IV fluids. Continue her current insulin regimen. Hopefully discharge home tomorrow pending chest x-ray report and DENTAL TECHNICIAN APPRENTICE evaluation.
--- NOTE | 2018-09-04 09:00 | Pharmacy Consult Notes ---
[facility] Pharmacy VTE Monitoring - Patient Demographics Admission date: 09/03/18 Report Date: 09/04/18 Time: 08:59 Allergies/Adverse Reactions: Patient Allergies buspirone [BUSPIRONE] Allergy (Unknown, Verified 09/03/18 19:06) nitrofurantoin [NITROFURANTOIN] Allergy (Unknown, Verified 09/03/18 19:06) sulfamethoxazole [From BACTRIM] Allergy (Unknown, Verified 09/03/18 19:06) topiramate [From TOPAMAX] Allergy (Unknown, Verified 09/03/18 19:06) trimethoprim [From BACTRIM] Allergy (Unknown, Verified 09/03/18 19:06) adhesive tape Adverse Reaction (Intermediate, Verified 09/03/18 19:06) SKIN IRRITATION Height: 1.6 m Weight: 81.675 kg Patient Problems: Current Active Problems Abdominal pain (Acute) Cough (Acute) Vaginal bleeding (Acute) DKA (diabetic ketoacidoses) (Acute) - VTE Risk Labs: VTE Related Lab Results Hgb 10.5 g/dL (12.2-16.2) L D 09/04/18 06:05 Hct 32.2 % (37.0-47.0) L 09/04/18 06:05 Plt Count 259 K/mm3 (142-424) 09/04/18 06:05 BUN 12 mg/dL (7-18) 09/04/18 06:05 Creatinine 0.49 mg/dL (0.55-1.02) L D 09/04/18 06:05 Estimated Creat Clear 222 mL/min (0-300) 09/04/18 06:05 Was VTE Risk Assessment Performed: Yes VTE Score: 1 VTE Risk Level: Very Low Risk - Prophylaxis VTE Prophylaxis Ordered?: Yes Types of VTE Prophylaxis: TEDS Knee High, Pharmacological Location of Applied Device: Bilateral Lower Extremeties Pharmacologic Type: Other (ELIQUIS ORDERED, BUT PATIENT DOES NOT HAVE) - VTE Diagnosis Confirmed Treatment or plan recommended: Continue Current Treatment
--- NOTE | 2018-09-04 12:23 | Consult Report ---
SHERIFF SERGEANT - CN: HPI - Data of Consult Patient: known to practice within the last 3 years Consult date: 09/04/18 Requesting Physician: Km Reynaga MD Primary Care Provider: Km Reynaga MD Family Provider: Km Reynaga MD - Consult Narrative Reason for consult: vaginal bleeding, other (Pelvic pain) History of present illness: Ms. Bolton is a 28 year old female She had a laparoscopic-assisted vaginal hysterectomy and RSO approximately 3 weeks ago by me. She had been doing well. She says that she began having some lower abdominal pain and vaginal bleeding. She says she bled enough to soak through a medium-sized pad. She says that the bleeding has now completely settled. She says her pain has resolved mostly as well. When she came into the ER her sugars were 795 and they were concerned about DKA so she was admitted. CC: Km Reynaga MD Review of Systems - Review of Systems Review of systems:: pertinent systems reviewed and negative unless documented below - *Neurologic Denies abnormal walking, Denies abnormal hearing, Denies behavioral changes, Denies dizziness [facility] History I have reviewed the patient's past medical history: Yes Medical History: Reports:: Arrhythmia, Deep Vein Thrombosis, Depression, Diabetes Mellitus Type 1, Palpitations, Pulmonary Embolism, Seizures Denies:: Cancer, Diabetes Mellitus Type 2, MRSA Other Medical History: Reports: Anemia, Other. Denies: Blood Transfusion Reaction Other Surgeries: Yes: Appendectomy, Cholecystectomy, Dilation and Curettage, Hysterectomy-Partial ("everything but left ovary"), Tubal Ligation, Other Amputation: No Fractures: No - *Social History Educational Level: Completed High School Smoking Status: Current some day smoker Tobacco Type: smokeless tobacco #Yrs smoked (if former smoker): 4 Alcohol Intake: current Alcohol Intake Frequency:: a few times a month Substance Use Type: former substance user Occupational Status: disabled Housing: house Household Members: family - Psychiatric History Expresses thoughts of harming self/others: None Suicide Plan Description: No Plan Pschychiatric History:: Reports:: Depression *Family Hx:: Diabetes, Hypertension, Coronary Artery Disease Meds Home Medications Medication Instructions Recorded Confirmed Type Lacosamide [Vimpat] 200 mg PO TID 01/29/18 09/04/18 History Venlafaxine HCl [Effexor 37.5mg 37.5 mg PO DAILY 04/05/18 09/04/18 History tablet] Insulin Glargine,Hum.rec.anlog 26 unit SUB-Q BID 08/09/18 09/04/18 History [Basaglar Kwikpen U-100] Baclofen [Lioresal 10mg tablet] 10 mg PO BID 08/10/18 09/04/18 History Allergies Allergy/AdvReac Type Severity Reaction Status Date / Time buspirone [BUSPIRONE] Allergy Unknown Verified 09/03/18 19:06 nitrofurantoin Allergy Unknown Verified 09/03/18 19:06 [NITROFURANTOIN] sulfamethoxazole Allergy Unknown Verified 09/03/18 19:06 [From BACTRIM] topiramate [From TOPAMAX] Allergy Unknown Verified 09/03/18 19:06 trimethoprim [From BACTRIM] Allergy Unknown Verified 09/03/18 19:06 adhesive tape AdvReac Intermediate SKIN Verified 09/03/18 19:06 IRRITATION SHERIFF SERGEANT - Exam Vital signs: Temp Pulse Resp BP Pulse Ox 98.4 F 72 20 121/70 95 09/04/18 11:20 09/04/18 11:20 09/04/18 11:20 09/04/18 11:20 09/04/18 11:20 - Constitutional no acute distress - Routine HEENT Exam Head: Present: normocephalic Eye: Present: EOMI, PERRL ENT: Present: mucous membranes moist - Routine Neck Exam Present: supple, full ROM - Routine Respiratory Exam Absent: accessory muscle use (good air entry bilaterally), wheezes, crackles - Routine Cardiovascular Exam Present: RRR. Absent: murmur - Routine Abdominal Exam Present: soft. Absent: tenderness, distended, rebound, guarding - Routine Rectal Exam Patient deferred: visual exam, digital exam - Routine Exam Patient deferred: external exam, groin exam, perineal exam - Routine Extremities Exam Present: full ROM. Absent: cyanosis, edema - Routine Skin Exam Present: intact, dry. Absent: cyanosis - Routine Neurological Exam Present: alert, oriented X3 - Routine Psychiatric Exam Present: normal affect SHERIFF SERGEANT - Results - Labs CBC & Chem 7: 09/04/18 06:05 09/04/18 06:05 Labs: Short CBC 09/03/18 09/04/18 Range/Units 15:05 06:05 WBC 7.4 6.2 (4.8-10.8) K/mm3 Hgb 11.8 L 10.5 L D (12.2-16.2) g/dL Hct 38.0 32.2 L (37.0-47.0) % Plt Count 327 259 (142-424) K/mm3 BMP 09/03/18 09/03/18 09/04/18 15:05 22:00 06:05 Sodium 130 L 132 L 135 L Potassium 4.6 3.8 3.7 Chloride 97 L 100 103 Carbon Dioxide 25 27 25 BUN 27 H 16 D 12 Creatinine 0.96 0.69 D 0.49 L D Glucose 795 H* 366 H D 257 H D Calcium 8.6 8.4 L 8.1 L Cardiac Enzymes 09/03/18 Range/Units 15:05 Total Creatine Kinase 64 (26-192) U/L CK-MB (CK-2) 0.9 (0.0-3.6) ng/ml Troponin I < 0.02 (0.00-0.06) ng/ml Liver Function 09/03/18 09/04/18 Range/Units 15:05 06:05 Total Bilirubin 0.3 0.3 (0.2-1.0) mg/dL AST 10 L 10 L (15-37) U/L ALT 16 13 (12-78) U/L Alkaline Phosphatase 207 H 158 H (46-116) U/L Albumin 3.1 L 2.6 L D (3.4-5.0) gm/dL Urine 09/03/18 Range/Units 15:07 Urine Color Straw (Yellow) Urine Appearance Clear (Clear) Urine pH 6.0 (5.0-8.5) Ur Specific [place] <= 1.005 (1.005-1.030) Urine Protein Negative (Negative) Urine Glucose (UA) 3+ (Negative) Assessment and Plan (1) Abdominal pain Current visit: Yes Status: Acute Category: Medical Code(s): R10.9 - Unspecified abdominal pain (2) Cough Current visit: Yes Status: Acute Category: Medical Code(s): R05 - Cough (3) Vaginal bleeding Current visit: Yes Status: Acute Category: Medical Code(s): N93.9 - Abnor mal uterine and vaginal bleeding, unspecified (4) Diabetes mellitus, insulin dependent (IDDM), uncontrolled Current visit: No Status: Acute Qualifiers: Glycemic state: with hyperglycemia Qualified Code(s): E10.65 - Type 1 diabetes mellitus with hyperglycemia Category: Medical Code(s): E10.65 - Type 1 diabetes mellitus with hyperglycemia - Assessment and plan all Dx Assessment and Plan for all problems:: When I examined her belly was soft. Her bleeding has now resolved. She has an appointment with me in 3 weeks time. She will keep that appointment at which time we will examine her vagina. She still has her left ovary so we do not have to worry about menopause at this point in time. Her white count is normal. She did have a CT scan but I suspect it should be normal given her normal white count. I will see her in my office in 3 weeks time.
--- NOTE | 2018-09-05 07:24 | Discharge Summary ---
General - General Admission date:: 09/03/18 Discharge date: 09/05/18 HPI HPI: 28-year-old white female with approximately 12-15-year history of type 1 diabetes, whose history is riddled with multiple admissions for DKA, medical noncompliance, long stretches of non-attendance at appointments/changing to multiple physicians over the past for 5 years. She also recently had hysterectomy by CONSTRUCTION TECH here at [facility], approximately 3 weeks ago. She told me that she reported to the emergency department yesterday evening because of severe abdominal pain. She notes that over the past couple of days her abdomen is been hurting and she has had painful bowel movements that resulted in a pasty like large bowel movement without blood. In the emergency department found to have glucose levels above 700. Was admitted to hospital for "DKA" apparently because she had the presence of small acetone levels in her serum. Of note she was actually not acidotic on blood gas readings or on CO2 levels on her basic metabolic panel. Of note, the nursing staff then informed me that she complained of vaginal bleeding on review of systems in the ER. She underwent hysterectomy recently here at [facility] it was uncomplicated. She notes she has no vaginal bleeding this morning. This morning after a night of IV fluid she feels much improved. She denies noncompliance with her shots, reports that until before her hysterectomy her sugar was better and mostly "in the 200s." She denies recent fever, urinary symptoms, but does report a mild cough. Hospital Course Hospital Course: Patient admitted for hyperglycemia and abdominal pain in the setting of diet type 1 diabetes. Also had complaint of severe vaginal bleeding after hysterectomy 3 weeks ago. Was started on subcu correction insulin. Gynecology was consulted. Patient's bleeding resolved during admission. Blood glucose became better controlled. Restarted patient's home insulin regimen after initiating oral intake. Patient remained hemodynamically stable, had no episodes of conchita anion gap acidosis. Medically stable for discharge home. Objective Vital signs: Temp Pulse Resp BP Pulse Ox 98.3 F 62 16 120/66 96 09/05/18 04:21 09/05/18 04:21 09/05/18 04:21 09/05/18 04:21 09/05/18 04:21 - *Routine HEENT Exam Head: Present: normocephalic, atraumatic Eye: Present: EOMI, PERRL ENT: Present: mucous membranes moist - *Routine Neck Exam Present: supple, full ROM - *Routine Respiratory Exam Present: CTA bilaterally. Absent: prolonged expiratory phase, wheezes, crackles - *Routine Cardiovascular Exam Present: RRR, Normal S1, Normal S2. Absent: murmur - *Routine Abdominal Exam Present: soft, normoactive bowel sounds. Absent: tenderness - *Routine Rectal Exam Patient deferred: visual exam - *Routine Exam Patient deferred: external exam - *Routine Extremities Exam Absent: cyanosis, clubbing, edema - *Routine Skin Exam Present: intact. Absent: cyanosis, erythema - *Routine Neurological Exam Present: alert, oriented X3, CN II-XII intact. Absent: altered mental status Results Labs on day of discharge: Labs from last 24 hours 09/04/18 09/04/18 09/04/18 21:11 16:28 10:54 POC Glucose 326 H* 304 H* 256 H 09/04/18 06:05 POC Glucose 256 H DS: Diagnosis - Discharge Diagnosis (1) Abdominal pain Status: Resolved Problem details: Clear due to hyperemia in the setting of type 1 diabetes as well as results of patient's recent hysterectomy and bleeding. Soft. (2) Cough Status: Resolved Problem details: Resolved, back to viral URI (3) Vaginal bleeding Status: Resolved (4) Diabetes mellitus, insulin dependent (IDDM), uncontrolled Status: Chronic Problem details: Patient is a long-standing diabetic, insulin- dependent. Has had challenges with being compliant in the past. Glucose better controlled during admission. Restarted her regimen. Plan for close follow-up in the next 5-7 days in our clinic. Had dietary do some diabetic counseling with patient prior to discharge. Discharge Plan - Patient Discharge Instructions ACTIVITY: Continue current activity DIET: continue same diet - Follow up Plan Follow up with: Km Reynaga MD [Primary Care Provider] - Disposition: Home, Self-Residential Medications: Home Medications Medication Instructions Recorded Confirmed Type Lacosamide [Vimpat] 200 mg PO TID 01/29/18 09/04/18 History Venlafaxine HCl [Effexor 37.5mg 37.5 mg PO DAILY 04/05/18 09/04/18 History tablet] Insulin Glargine,Hum.rec.anlog 26 unit SUB-Q BID 08/09/18 09/04/18 History [Basaglar Kwikpen U-100] Baclofen [Lioresal 10mg tablet] 10 mg PO BID 08/10/18 09/04/18 History Prescriptions/Medication Reconciliation: New Apixaban [Eliquis] 5 mg PO BID Pantoprazole Sodium [Protonix 40mg tablet] 40 mg PO HS tablet.dr Lyle oxcarbazepine 600 mg tablet 1,200 mg PO BID #60 tab apixaban 5 mg tablet 5 mg PO BID #60 tab polyethylene glycol 3350 17 gram oral powder packet 17 g PO DAILY #168 each insulin lispro (U- 100) 100 unit/mL subcutaneous pen See Rx Instructions SUB- Q .with meals #15 ml levetiracetam 500 mg tablet 2,500 mg PO BID #60 tab Baclofen [Lioresal 10mg tablet] 10 mg PO BID Lacosamide [Vimpat] 200 mg PO TID Venlafaxine HCl [Effexor 37.5mg tablet] 37.5 mg PO DAILY Insulin Glargine,Hum.rec.anlog [Basaglar Kwikpen U-100] 26 unit SUB-Q BID
[2018-09-05 08:13] LABS: Basophils % 0.5 % (0.1-2.0); Eosinophils # 0.2 K/mm3 (0.0-0.4); Eosinophils % 3.5 % (0.1-12.0); Hematocrit 31.9 % (37.0-47.0); Hemoglobin 10.3 g/dL (12.2-16.2); Lymphocytes # 1.3 K/mm3 (0.7-4.5); Lymphocytes % 22.8 K/mm3 (10-50); Mean Corpuscular HGB Conc 32.2 g/dL (31.8-35.4); Mean Corpuscular Hemoglobin 25.8 pg (27.0-31.2); Mean Corpuscular Volume 80.1 fl (81-99); Mean Platelet Volume 8.3 fl (7.4-10.4); Monocytes # 0.2 K/mm3 (0.1-1.0); Neutrophils % 69.3 % (37.0-80.0); Platelet Count 238 K/mm3 (142-424); Red Blood Count 3.98 M/mm3 (4.20-5.40); White Blood Count 5.8 K/mm3 (4.8-10.8)
[2018-09-05 08:23] LABS: Anion Gap 8.9 mEq/L (5-15); Phosphorous 2.4 mg/dL (2.4-4.9); Potassium 3.9 mmoL/L (3.5-5.1)
[2018-09-05 08:32] VITALS: BP 135/76
== END 2018-09-05 12:29 | disposition home or self-care (01) ==
LOC: ER 14:55 → 2ND 17:50
PROVIDERS: ADMIT Emergency Medicine; ATTEND Internal Medicine Adolescent Medicine

== ENCOUNTER 2018-09-07 15:35 | Inpatient (IN) ==
--- NOTE | 2018-09-07 15:44 | Emergency Department Note ---
ED Disposition Clinical Impression: IDDM (insulin dependent diabetes mellitus), DKA (diabetic ketoacidoses) Disposition: Still a Patient Condition on Discharge: Fair - Critical Care Critical Care Time: No Attestation: On , the high probability of a clinically significant, sudden or life threatening deterioration of the following system(s) required my full and direct attention, intervention and personal management. The time I documented below is in addition to time spent performing reported procedures but includes the follow ing listed in this critical care notation. Medical Decision Making - Jamari Inquiry Pt receiving controlled substance: No Jamari was queried for this patient: No Vital Signs: 09/07/18 15:42 09/07/18 16:13 Temperature 99 F Temperature Source Oral Pulse Rate [Left Radial] 109 H 109 H Respiratory Rate 16 Blood Pressure [Right Arm] 127/81 134/75 Blood Pressure Mean [Right Arm] 96 94 Blood Pressure Source [Right Arm] Automatic Cuff Blood Pressure Position [Right Arm] Sitting 02 Sat by Pulse Oximetry 98 99 Oxygen Delivery Method Room Air - Lab Data Lab Results 09/07/18 15:18: WBC 11.4 H D, RBC 4.71, Hgb 12.3, Hct 40.1, MCV 85.2, MCH 26.1 L , MCHC 30.7 L, RDW 15.1, Plt Count 420 D, MPV 8.4, Neut % (Auto) 82.2 H, Lymph % (Auto) 13.3, Miller % (Auto) 3.2, Eos % (Auto) 0.8, Baso % (Auto) 0.5, Neut # (Auto) 9.4 H, Lymph # (Auto) 1.5, Miller # (Auto) 0.4, Eos # (Auto) 0.1, Baso # (A uto) 0.1 09/07/18 15:18: Sodium 130 L, Potassium 4.7 D, Chloride 95 L, Carbon Dioxide 8 L* D, Anion Gap 31.7 H, BUN 17 D, Creatinine 0.96 D, Estimated Creat Clear 107, Estimated GFR 70, Est GFR ( Amer) 84 D, Glucose 431 H*, Calcium 9.3 D, Magnesium 1.7 D, Total Bilirubin 0.5, AST 13 L, ALT 20, Alkaline Phosphatase 220 H, Troponin I < 0.02, Total Protein 8.6 H D, Albumin 3.5, Globulin 5.1 H, Albumin/Globulin Ratio 0.7 L, Lipase 149, Acetone Level Moderate 09/07/18 15:39: Specimen Source Right radial, O2 % Room air, ABG pH 7.13 L*, ABG pCO2 24.9 L, ABG pO2 112.9 H, ABG HCO3 8.1 L, ABG Total CO2 8.8 L, ABG O2 Saturation 97, ABG Base Excess -21.1 L, Agustin Test Acceptable 09/07/18 16:03: Urine Color Yellow, Urine Appearance Clear, Urine pH 5.5, Ur Specific [place] >= 1.030, Urine Protein Trace, Urine Glucose (UA) 2+, Urine Ketones 3+, Urine Blood 1+, Urine Nitrate Negative, Urine Bilirubin Negative, Urine Urobilinogen 0.2, Ur Leukocyte Esterase Trace Result diagrams: 09/07/18 15:18 09/07/18 15:18 Orders (Tests/Meds): ED MEDICATIONS Discontinued Medications Generic Name Dose Route Start Last Admin Trade Name Freq PRN Reason Stop Dose Admin Sodium Chloride 1,000 mls @ 999 mls/hr 09/07/18 15:45 09/07/18 16:30 Sod Chlor 0.9% 1000ml Bag IV 09/07/18 16:45 999 mls/hr .Q1H1M DALIA Administration ORDERS Category Date Time Status Diarrhea Panel, PCR Stat Lab 09/07/18 15:39 Ordered Urinalysis and Microscopic Stat Lab 09/07/18 16:03 Ordered Blood Culture Stat Micro 09/07/18 15:18 Received Medical Decision Narrative: Patient was found to be in DKA again contacted Dr. Ponce is oral communication instructor for Dr. Lucia agreed to admit the patient. Continue IV fluids and start insulin drip. General Adult HPI - General Chief complaint: Hyper/Hypoglycemia Stated complaint: hyperglycemia Time Seen by Provider: 09/07/18 15:42 - History of Present Illness HPI narrative: 28 years old white female with complicated past medical history including insulin-dependent diabetes mellitus multiple DKA's and most recent admission for hyperglycemia with acetone on September 04 and she was discharged on September 05 with the lowest blood sugar reading of 235. Also she had history of pulmonary embolism she is on Eliquis. She has a right eye cataract. Discharge she has been complaining of nausea dry heaving 3 times a day unable to tolerate p.o. intake and ongoing diarrhea 234 times a day of yellow stool. She feels no fever but she complains of diffuse body aches. She denies having cough congestion or dysuria. Onset (ago): day(s) (Started on Wednesday.) Radiation: non-radiation Relieving factors: none Exacerbating factors: none, other Associated symptoms: nausea/vomiting Treatments prior to arrival: none - Related Data Home Medications Medication Instructions Recorded Confirmed Lacosamide [Vimpat] 200 mg PO TID 01/29/18 09/04/18 Venlafaxine HCl [Effexor 37.5mg 37.5 mg PO DAILY 04/05/18 09/04/18 tablet] Insulin Glargine,Hum.rec.anlog 26 unit SUB-Q BID 08/09/18 09/04/18 [Basaglar Kwikpen U-100] Baclofen [Lioresal 10mg tablet] 10 mg PO BID 08/10/18 09/04/18 Previous Rx's Medication Instructions Recorded apixaban 5 mg tablet 5 mg PO BID #60 tab 05/03/18 oxcarbazepine 600 mg tablet 1,200 mg PO BID #60 tab 05/03/18 insulin lispro (U- 100) 100 See Rx Instructions SUB-Q .with 08/24/18 unit/mL subcutaneous pen meals #15 ml levetiracetam 500 mg tablet 2,500 mg PO BID #60 tab 08/24/18 polyethylene glycol 3350 17 gram 17 g PO DAILY #168 each 08/25/18 oral powder packet Apixaban [Eliquis] 5 mg PO BID 09/05/18 Pantoprazole Sodium [Protonix 40mg 40 mg PO HS tablet. 09/05/18 tablet] Allergies Allergy/AdvReac Type Severity Reaction Status Date / Time buspirone [BUSPIRONE] Allergy Unknown Verified 09/03/18 19:06 nitrofurantoin Allergy Unknown Verified 09/03/18 19:06 [NITROFURANTOIN] sulfamethoxazole Allergy Unknown Verified 09/03/18 19:06 [From BACTRIM] topiramate [From TOPAMAX] Allergy Unknown Verified 09/03/18 19:06 trimethoprim [From BACTRIM] Allergy Unknown Verified 09/03/18 19:06 adhesive tape AdvReac Intermediate SKIN Verified 09/03/18 19:06 IRRITATION [facility] History I have reviewed the patient's past medical history: Yes Medical History: Reports:: Arrhythmia, Deep Vein Thrombosis, Depression, Diabetes Mellitus Type 1, Palpitations, Pulmonary Embolism, Seizures Denies:: Cancer, Diabetes Mellitus Type 2, MRSA Other Medical History: Reports: Anemia, Other. Denies: Blood Transfusion Reaction Other Surgeries: Yes: Appendectomy, Cholecystectomy, Dilation and Curettage, Hysterectomy-Partial ("everything but left ovary"), Tubal Ligation, Other Amputation: No Fractures: No Comment: Ablation 10/30/2016 - Social History Smoking Status: Current some day smoker Tobacco Type: smokeless tobacco #Yrs smoked (if former smoker): 4 Alcohol Intake: current Alcohol Intake Frequency:: a few times a month Substance Use Type: former substance user Occupational Status: disabled Housing: house Household Members: family Comment: Marked medical noncompliance - Psychiatric History Pschychiatric History:: Reports:: Depression Family Hx:: Diabetes, Hypertension, Coronary Artery Disease ROS Obtained: Yes All systems reviewed & no additional complaints Physical Exam - General General appearance: alert, in no apparent distress - Head Head exam: atraumatic, normocephalic, normal inspection - Eye Eye exam: Present: normal appearance, PERRL, EOMI, other (Right eye cataract.) - ENT ENT exam: Present: normal exam, normal oropharynx, mucous membranes moist, TM's normal bilaterally, normal external ear exam - Neck Neck exam: Present: normal inspection, full ROM, trachea midline. Absent: tenderness, meningismus, lymphadenopathy - Chest Chest inspection: Present: normal inspection, symmetric chest wall rise. Absent: tenderness - Respiratory Respiratory exam: Present: normal lung sounds bilaterally. Absent: respiratory distress, wheezes - Cardiovascular Cardiovascular exam: Present: regular rate, normal rhythm. Absent: JVD - Abdominal Exam Abdominal exam: Present: soft, normal bowel sounds. Absent: distention, tenderness, guarding, rebound, rigidity - External exam: Present: normal external exam - Extremities Exam Extremities exam: Present: normal inspection, full ROM, normal capillary refill. Absent: tenderness, pedal edema, calf tenderness - Back Exam Back exam: Present: normal inspection. Absent: tenderness, CVA tenderness (R), CVA tenderness (L), paraspinal tenderness, vertebral tenderness - Neurological Exam Neurological exam: Present: alert, oriented X3, CN II-XII intact, motor sensory deficit, reflexes normal - Psychiatric Psychiatric exam: Present: normal affect, normal mood - Skin Skin exam: Present: warm, dry, intact, normal color - Lymphatic Lymphatic Findings: no adenopathy
[2018-09-07 16:00] LABS: Basophils # 0.1 K/mm3 (0-0.2); Basophils % 0.5 % (0.1-2.0); Eosinophils # 0.1 K/mm3 (0.0-0.4); Eosinophils % 0.8 % (0.1-12.0); Hematocrit 40.1 % (37.0-47.0); Hemoglobin 12.3 g/dL (12.2-16.2); Lymphocytes # 1.5 K/mm3 (0.7-4.5); Lymphocytes % 13.3 K/mm3 (10-50); Mean Corpuscular HGB Conc 30.7 g/dL (31.8-35.4); Mean Corpuscular Hemoglobin 26.1 pg (27.0-31.2); Mean Corpuscular Volume 85.2 fl (81-99); Mean Platelet Volume 8.4 fl (7.4-10.4); Monocytes # 0.4 K/mm3 (0.1-1.0); Monocytes % 3.2 % (1.7-9.3); Neutrophils # 9.4 K/mm3 (1.8-7.8); Neutrophils % 82.2 % (37.0-80.0); Platelet Count 420 K/mm3 (142-424); Red Blood Count 4.71 M/mm3 (4.20-5.40); Red Cell Distribution Width 15.1 % (11.5-17.5); White Blood Count 11.4 K/mm3 (4.8-10.8)
[2018-09-07 16:15] LABS: Microscopic, Urine URINE MICROSCOPIC (MICROSCOPIC)
[2018-09-07 16:15] LABS: Alanine Aminotransferase 20 U/L (12-78); Albumin Level 3.5 gm/dL (3.4-5.0); Albumin/Globulin Ratio 0.7 (1.1-1.8); Alkaline Phosphatase 220 U/L (46-116); Anion Gap 31.7 mEq/L (5-15); Aspartate Amino Transferase 13 U/L (15-37); Bilirubin,Total 0.5 mg/dL (0.2-1.0); Blood Urea Nitrogen 17 mg/dL (7-18); Chloride 95 mmol/L (98-107); Globulin 5.1 gm/dl (1.3-3.2); Lipase 149 u/L (73-393); Potassium 4.7 mmoL/L (3.5-5.1); Sodium 130 mmol/L (136-145); Total Protein,Serum 8.6 gm/dL (6.4-8.2)
[2018-09-07 16:17] LABS: Appearance,Urine CLEAR (Clear); Bilirubin,Urine Negative (Negative); Blood, Urine 1+ (Negative); Color,Urine YELLOW (Yellow); Glucose,Urine (UA) 2+ (Negative); Ketones,Urine 3+ (Negative); Leukocyte Esterase,Urine TRACE (Negative); PH,Urine 5.5 (5.0-8.5); Protein,Urine TRACE (Negative); Specific Gravity, Urine >= 1.030 (1.005-1.030); Urobilinogen,Urine 0.2 EU/dl (0.2)
[2018-09-07 16:19] LABS: Carbon Dioxide 8 mmol/L (21.0-32.0); Glucose 431 mg/dL (74-106)
[2018-09-07 16:31] LABS: Acetone, Serum (Rapid) Moderate (None Detect)
[2018-09-07 16:34] LABS: ABG Base Excess -21.1 mmol/L (-2.4-2.3); ABG HCO3 8.1 mmhg (22.0-26.0); ABG Oxygen Saturation 97 % (90-100); ABG PCO2 24.9 mmhg (35.0-45.0); ABG PO2 112.9 mmhg (80-100); ABG TCO2 8.8 mmhg (23-27)
[2018-09-07 16:37] LABS: Allen's Test Acceptable; Oxygen ROOM AIR %
[2018-09-07 16:38] LABS: ABG PH 7.13 mmol/L (7.35-7.45)
[2018-09-07 16:56] LABS: Calcium 9.3 mg/dL (8.5-10.1)
[2018-09-07 17:02] LABS: Bacteria,Urine 1+ /lpf; Squamous Epithelial Cell,Urine Occasional #/hpf (0-5)
[2018-09-07 22:37] LABS: Calcium 8.4 mg/dL (8.5-10.1)
[2018-09-08 01:42] LABS: Anion Gap 29.1 mEq/L (5-15); Potassium 5.1 mmoL/L (3.5-5.1)
[2018-09-08 06:11] LABS: Albumin Level 3.7 gm/dL (3.4-5.0); Albumin/Globulin Ratio 0.8 (1.1-1.8); Bilirubin,Total 0.4 mg/dL (0.2-1.0); Calcium 8.4 mg/dL (8.5-10.1); Globulin 4.8 gm/dl (1.3-3.2); Potassium 5.5 mmoL/L (3.5-5.1); Total Protein,Serum 8.5 gm/dL (6.4-8.2)
[2018-09-08 06:12] LABS: Anion Gap 32.5 mEq/L (5-15)
--- NOTE | 2018-09-08 08:45 | History & Physical Report ---
*Admission Date: 09/08/18 *Chief complaint: hyperglycemia, N/V/D *History of present illness: 28-year-old white female with approximately 12-15-year history of type 1 diabetes, whose history is riddled with multiple admissions for DKA, medical noncompliance, long stretches of non-attendance at appointments/changing to multiple physicians over the past for 5 years who was discharged from [facility] on Wednesday presented to the ED with hyperglycemia, shortness of breath, nausea, vomiting and diarrhea. Patient states she has taken her insulin as prescribed since she was discharged on Wednesday. Reports she woke up Wednesday morning with nausea, vomiting, diarrhea and body aches. States symptoms worsened yesterday and despite her basal and sliding scale insulin she was unable to get her FSBS below 400. She then became short of breath and came to the ED for evaluation. In the ED, she was found to be in DKA. She was given IVF bolus and started on an insulin gtt. She has had one episode of vomiting since her admission, no further diarrhea. Denies cough or congestion. No urinary symptoms. Patient was admitted to step-down for insulin gtt and DKA management. [facility] History I have reviewed the patient's past medical history: Yes Medical History: Reports:: Arrhythmia, Deep Vein Thrombosis, Depression, Diabetes Mellitus Type 1, Palpitations, Pulmonary Embolism, Seizures Denies:: Cancer, Diabetes Mellitus Type 2, MRSA Other Medical History: Reports: Anemia, Other. Denies: Blood Transfusion Reaction Other Surgeries: Yes: Appendectomy, Cholecystectomy, Dilation and Curettage, Hysterectomy-Partial ("everything but left ovary"), Tubal Ligation, Other Amputation: No Fractures: No - *Social History Educational Level: Completed College Smoking Status: Current some day smoker Tobacco Type: smokeless tobacco #Yrs smoked (if former smoker): 4 Smoking End Date: smoked 5 months 5 years ago Alcohol Intake: current Alcohol Intake Frequency:: a few times a month Substance Use Type: former substance user Occupational Status: disabled Housing: house Household Members: family - Psychiatric History Expresses thoughts of harming self/others: None Suicide Plan Description: No Plan Pschychiatric History:: Reports:: Depression *Family Hx:: Diabetes, Hypertension, Coronary Artery Disease Review of Systems - Review of Systems Review of systems:: pertinent systems reviewed and negative unless documented below - Constitutional Reports body ache(s), Reports chills, Reports malaise, Reports weakness - *Gastrointestinal Reports loose stools, Reports nausea, Reports vomiting Meds Home Medications Medication Instructions Recorded Confirmed Type Venlafaxine HCl [Effexor 37.5mg 37.5 mg PO DAILY 04/05/18 09/07/18 History tablet] Insulin Glargine,Hum.rec.anlog 26 unit SUB-Q BID 08/09/18 09/07/18 History [Justyna Stanley U-100] Baclofen [Lioresal 10mg tablet] 10 mg PO BID 08/10/18 09/07/18 History Ondansetron HCl [Ondansetron 4mg 4 mg PO TID 09/07/18 09/07/18 History Tablet] Allergies Allergy/AdvReac Type Severity Reaction Status Date / Time buspirone [BUSPIRONE] Allergy Unknown Verified 09/03/18 19:06 nitrofurantoin Allergy Unknown Verified 09/03/18 19:06 [NITROFURANTOIN] sulfamethoxazole Allergy Unknown Verified 09/03/18 19:06 [From BACTRIM] topiramate [From TOPAMAX] Allergy Unknown Verified 09/03/18 19:06 trimethoprim [From BACTRIM] Allergy Unknown Verified 09/03/18 19:06 adhesive tape AdvReac Intermediate SKIN Verified 09/03/18 19:06 IRRITATION Exam Vital signs and Labs for Last 24 Hours: Temp Pulse Resp BP Pulse Ox 98.3 F 126 H 24 137/97 H 100 09/08/18 08:00 09/08/18 08:00 09/08/18 08:00 09/08/18 08:00 09/08/18 08:00 Laboratory Results - last 24 hr 09/07/18 15:18: WBC 11.4 H D, RBC 4.71, Hgb 12.3, Hct 40.1, MCV 85.2, MCH 26.1 L , MCHC 30.7 L, RDW 15.1, Plt Count 420 D, MPV 8.4, Neut % (Auto) 82.2 H, Lymph % (Auto) 13.3, [place] % (Auto) 3.2, Eos % (Auto) 0.8, Baso % (Auto) 0.5, Neut # (Auto) 9.4 H, Lymph # (Auto) 1.5, [place] # (Auto) 0.4, Eos # (Auto) 0.1, Baso # (Auto) 0.1 09/07/18 15:18: Sodium 130 L, Potassium 4.7 D, Chloride 95 L, Carbon Dioxide 8 L* D, Anion Gap 31.7 H, BUN 17 D, Creatinine 0.96 D, Estimated Creat Clear 107, Estimated GFR 70, Est GFR ( Amer) 84 D, Glucose 431 H*, Calcium 9.3 D, Magnesium 1.7 D, Total Bilirubin 0.5, AST 13 L, ALT 20, Alkaline Phosphatase 220 H, Troponin I < 0.02, Total Protein 8.6 H D, Albumin 3.5, Globulin 5.1 H, Albumin/Globulin Ratio 0.7 L, Lipase 149, Acetone Level Moderate 09/07/18 15:39: Specimen Source Right radial, O2 % Room air, ABG pH 7.13 L*, ABG pCO2 24.9 L, ABG pO2 112.9 H, ABG HCO3 8.1 L, ABG Total CO2 8.8 L, ABG O2 Saturation 97, ABG Base Excess -21.1 L, Agustin Test Acceptable 09/07/18 16:03: Urine Color Yellow, Urine Appearance Clear, Urine pH 5.5, Ur Specific [place] >= 1.030, Urine Protein Trace, Urine Glucose (UA) 2+, Urine Ketones 3+, Urine Blood 1+, Urine Nitrate Negative, Urine Bilirubin Negative, Urine Urobilinogen 0.2, Ur Leukocyte Esterase Trace, Urine RBC 3-5, Urine WBC 5- 10, Ur Squamous Epith Cells Occasional, Urine Bacteria 1+ 09/07/18 18:56: POC Glucose 363 H* 09/07/18 21:00: POC Glucose 263 H 09/07/18 22:08: Phosphorus 3.1 D 09/07/18 22:08: Sodium 133 L, Potassium 5.0, Chloride 101, Carbon Dioxide 10 L D , Anion Gap 27.0 H, BUN 15, Creatinine 0.97, Estimated Creat Clear 109, Estimated GFR 69, Est GFR ( Amer) 83, Glucose 263 H D, Calcium 8.4 L 09/07/18 23:06: POC Glucose 246 H 09/08/18 01:04: POC Glucose 287 H 09/08/18 01:05: Sodium 132 L, Potassium 5.1, Chloride 101, Carbon Dioxide 7 L* D , Anion Gap 29.1 H, BUN 12, Creatinine 0.96, Estimated Creat Clear 110, Estimated GFR 70, Est GFR ( Amer) 84, Glucose 312 H, Calcium 8.0 L 09/08/18 01:10: Acetone Level Small 09/08/18 03:04: POC Glucose 319 H* 09/08/18 05:10: Sodium 133 L, Potassium 5.5 H, Chloride 102, Carbon Dioxide 4 L* D, Anion Gap 32.5 H, BUN 12, Creatinine 1.11 H, Estimated Creat Clear 94, Estimated GFR 59, Est GFR ( Amer) 71, Glucose 372 H, Calcium 8.4 L, Magnesium 2.0 D, Total Bilirubin 0.4, AST 18 D, ALT 23, Alkaline Phosphatase 239 H, Total Protein 8.5 H, Albumin 3.7, Globulin 4.8 H, Albumin/Globulin Ratio 0.8 L 09/08/18 05:12: POC Glucose 349 H* 09/08/18 06:04: POC Glucose 281 H 09/08/18 06:50: POC Glucose 257 H I & O for Last 24 hours: Intake & Output 09/05/18 09/06/18 09/07/18 09/08/18 11:59 11:59 11:59 11:59 Intake Total 2335 / 2335 Output Total 3300 / 3300 Balance -965 / -965 Weight 173 lb 1 oz Narrative: Alert and oriented x3. Skin pink, warm and dry. ENT exam unremarkable. Lung sounds clear and equal. S1, S2 mildly tachycardiac. Abdomen soft, diffusely tender. No LE edema. No neuro deficits. Assessment and Plan (1) DKA (diabetic ketoacidoses) Current visit: Yes Status: Acute Qualifiers: Category: Medical Code(s): E13.10 - Other specified diabetes mellitus with ketoacidosis without coma - Assessment and plan all Dx Assessment and Plan for all problems:: Patient labs appear worse this morning despite IVF's and insulin. She was on a sliding scale insulin gtt protocol through the night. Change to standard DKA protocol. Will repeat labs now to recheck potassium which was noted at 5.5. Restart basal insulin. Change to clear liquid diet. Will monitor labs closely and treat as indicated.
--- NOTE | 2018-09-08 09:19 | Pharmacy Consult Notes ---
[facility] Pharmacy VTE Monitoring - Patient Demographics Admission date: 09/08/18 Report Date: 09/08/18 Time: 09:19 Allergies/Adverse Reactions: Patient Allergies buspirone [BUSPIRONE] Allergy (Unknown, Verified 09/03/18 19:06) nitrofurantoin [NITROFURANTOIN] Allergy (Unknown, Verified 09/03/18 19:06) sulfamethoxazole [From BACTRIM] Allergy (Unknown, Verified 09/03/18 19:06) topiramate [From TOPAMAX] Allergy (Unknown, Verified 09/03/18 19:06) trimethoprim [From BACTRIM] Allergy (Unknown, Verified 09/03/18 19:06) adhesive tape Adverse Reaction (Intermediate, Verified 09/03/18 19:06) SKIN IRRITATION Height: 1.6 m Weight: 78.5 kg Patient Problems: Current Active Problems IDDM (insulin dependent diabetes mellitus) (Acute) DKA (diabetic ketoacidoses) (Acute) - VTE Risk Labs: VTE Related Lab Results Hgb 12.3 g/dL (12.2-16.2) 09/07/18 15:18 Hct 40.1 % (37.0-47.0) 09/07/18 15:18 Plt Count 420 K/mm3 (142-424) D 09/07/18 15:18 BUN 12 mg/dL (7-18) 09/08/18 05:10 Creatinine 1.11 mg/dL (0.55-1.02) H 09/08/18 05:10 Estimated Creat Clear 94 mL/min (0-300) 09/08/18 05:10 Was VTE Risk Assessment Performed: Yes VTE Score: 1 VTE Risk Level: Low Risk - Prophylaxis Types of VTE Prophylaxis: TEDS Knee High - VTE Diagnosis Confirmed Comment: JUANCARLOS DINERO ORDERED
[2018-09-08 09:35] LABS: Anion Gap 26.7 mEq/L (5-15); Calcium 7.9 mg/dL (8.5-10.1); Potassium 4.7 mmoL/L (3.5-5.1)
[2018-09-08 13:21] LABS: Microscopic, Urine URINE MICROSCOPIC (MICROSCOPIC)
[2018-09-08 13:24] LABS: Appearance,Urine SL CLOUDY (Clear); Blood, Urine 1+ (Negative); Color,Urine YELLOW (Yellow); Glucose,Urine (UA) Negative (Negative); Ketones,Urine 3+ (Negative); Leukocyte Esterase,Urine 1+ (Negative); PH,Urine 5.5 (5.0-8.5); Protein,Urine 1+ (Negative); Specific Gravity, Urine >= 1.030 (1.005-1.030); Urobilinogen,Urine 0.2 EU/dl (0.2)
[2018-09-08 13:32] LABS: Bilirubin,Urine Negative (Negative)
[2018-09-08 13:37] LABS: Bacteria,Urine 1+ /lpf
[2018-09-08 14:30] LABS: Basophils % 0.3 % (0.1-2.0); Eosinophils % 0.1 % (0.1-12.0); Hematocrit 37.8 % (37.0-47.0); Hemoglobin 11.7 g/dL (12.2-16.2); Lymphocytes # 1.3 K/mm3 (0.7-4.5); Lymphocytes % 12.4 K/mm3 (10-50); Mean Corpuscular HGB Conc 30.8 g/dL (31.8-35.4); Mean Corpuscular Hemoglobin 25.7 pg (27.0-31.2); Mean Corpuscular Volume 83.4 fl (81-99); Mean Platelet Volume 8.5 fl (7.4-10.4); Monocytes # 0.5 K/mm3 (0.1-1.0); Monocytes % 4.6 % (1.7-9.3); Neutrophils # 8.7 K/mm3 (1.8-7.8); Neutrophils % 82.6 % (37.0-80.0); Platelet Count 320 K/mm3 (142-424); Red Blood Count 4.53 M/mm3 (4.20-5.40); Red Cell Distribution Width 15.1 % (11.5-17.5); White Blood Count 10.5 K/mm3 (4.8-10.8)
[2018-09-08 14:37] LABS: Anion Gap 22.4 mEq/L (5-15); Calcium 7.8 mg/dL (8.5-10.1); Potassium 3.4 mmoL/L (3.5-5.1)
[2018-09-08 15:42] LABS: Amphetamine/Metha Screen,Urine Negative ng/mL (<1000); Barbiturates Screen,Urine Negative ng/mL (<200); Benzodiazepines Screen,Urine Negative ng/mL (<200); Cannabinoid Screen,Urine Negative ng/mL (<50); Cocaine Screen,Urine Negative ng/mL (<300); Methadone Screen,Urine Negative ng/mL (<300); Opiate Screen,Urine Negative ng/mL (<300); Phencyclidine Screen,Urine Negative ng/mL (<25)
[2018-09-08 18:20] LABS: Anion Gap 15.6 mEq/L (5-15); Calcium 7.8 mg/dL (8.5-10.1); Potassium 3.6 mmoL/L (3.5-5.1)
[2018-09-09 00:46] LABS: Anion Gap 11.3 mEq/L (5-15); Calcium 7.6 mg/dL (8.5-10.1); Potassium 3.3 mmoL/L (3.5-5.1)
[2018-09-09 05:54] LABS: Anion Gap 11.1 mEq/L (5-15); Calcium 7.6 mg/dL (8.5-10.1); Potassium 3.1 mmoL/L (3.5-5.1)
[2018-09-09 05:56] LABS: Phosphorous 0.7 mg/dL (2.4-4.9)
--- NOTE | 2018-09-09 07:51 | Progress Note ---
Internal Medicine - PN: Subj *Date: 09/09/18 *Time: 07:48 Interval history: Overnight patient's gap closed. Has had significant improvement in her acidosis. Continued drip overnight. Initiated basal insulin at bedtime. Still not feeling like eating this morning. Denies fever, vomiting, altered mental status. Continues to have some nausea and belly discomfort. Significant fatigue this morning. Remained hemodynamically stable. CT abdomen pelvis obtained, official read pending however no occult infection visualized on my read. Exam Vital signs and Labs for Last 24 Hours: Temp Pulse Resp BP Pulse Ox 98.3 F 71 16 111/69 100 09/09/18 07:40 09/09/18 07:40 09/09/18 07:40 09/09/18 07:40 09/09/18 07:40 Laboratory Results - last 24 hr 09/08/18 08:31: POC Glucose 192 H 09/08/18 09:15: Sodium 135 L, Potassium 4.7, Chloride 106, Carbon Dioxide 7 L* D , Anion Gap 26.7 H, BUN 8 D, Creatinine 1.13 H, Estimated Creat Clear 93, Estimated GFR 58 L, Est GFR ( Amer) 70, Glucose 180 H D, Calcium 7.9 L 09/08/18 10:07: POC Glucose 155 H 09/08/18 11:50: POC Glucose 97 09/08/18 12:45: Urine Color Yellow, Urine Appearance Sl cloudy, Urine pH 5.5, Ur Specific [place] >= 1.030, Urine Protein 1+, Urine Glucose (UA) Negative, Urine Ketones 3+, Urine Blood 1+, Urine Nitrate Negative, Urine Bilirubin Negative, Urine Urobilinogen 0.2, Ur Leukocyte Esterase 1+ A, Urine RBC 3-5, Urine WBC 10- 20, Ur Squamous Epith Cells 5-10, Urine Bacteria 1+ 09/08/18 12:45: Urine Opiates Screen Negative, Urine Methadone Screen Negative, Ur Barbituates Screen Negative, Ur Phencyclidine Scrn Negative, Ur Amphetamines Screen Negative, U Benzodiazepines Scrn Negative, Urine Cocaine Screen Negative, U Marijuana (THC) Screen Negative 09/08/18 13:42: POC Glucose 180 H 09/08/18 14:20: WBC 10.5, RBC 4.53, Hgb 11.7 L, Hct 37.8, MCV 83.4, MCH 25.7 L, MCHC 30.8 L, RDW 15.1, Plt Count 320, MPV 8.5, Neut % (Auto) 82.6 H, Lymph % (Auto) 12.4, [place] % (Auto) 4.6, Eos % (Auto) 0.1, Baso % (Auto) 0.3, Neut # (Auto) 8.7 H, Lymph # (Auto) 1.3, [place] # (Auto) 0.5, Eos # (Auto) 0.0, Baso # (Auto) 0.0 09/08/18 14:20: Sodium 133 L, Potassium 3.4 L D, Chloride 105, Carbon Dioxide 9 L* D, Anion Gap 22.4 H, BUN 8, Creatinine 0.97, Estimated Creat Clear 108, Estimated GFR 69, Est GFR ( Amer) 83, Glucose 200 H, Calcium 7.8 L 09/08/18 16:19: POC Glucose 146 H 09/08/18 18:03: Sodium 131 L, Potassium 3.6, Chloride 104, Carbon Dioxide 15 L D , Anion Gap 15.6 H, BUN 7, Creatinine 0.93, Estimated Creat Clear 113, Estimated GFR 72, Est GFR ( Amer) 88, Glucose 137 H D, Calcium 7.8 L 09/08/18 18:03: Acetone Level Small 09/08/18 18:09: POC Glucose 135 H 09/08/18 20:24: POC Glucose 162 H 09/08/18 22:02: POC Glucose 164 H 09/08/18 23:41: POC Glucose 127 H 09/09/18 00:30: Sodium 135 L, Potassium 3.3 L, Chloride 107, Carbon Dioxide 20 L D, Anion Gap 11.3, BUN 5 L D, Creatinine 0.76, Estimated Creat Clear 138, Estimated GFR 91, Est GFR ( Amer) 110 D, Glucose 132 H, Calcium 7.6 L 09/09/18 01:56: POC Glucose 85 09/09/18 02:56: POC Glucose 113 H 09/09/18 04:01: POC Glucose 148 H 09/09/18 05:26: Sodium 136, Potassium 3.1 L, Chloride 109 H, Carbon Dioxide 19 L , Anion Gap 11.1, BUN 5 L, Creatinine 0.75, Estimated Creat Clear 140, Estimated GFR 93, Est GFR ( Amer) 112, Glucose 155 H, Calcium 7.6 L 09/09/18 05:26: Phosphorus 0.7 L D, Magnesium 1.6 D I & O for Last 24 hours: Intake & Output 09/06/18 09/07/18 09/08/18 09/09/18 23:59 23:59 23:59 23:59 Intake Total 6496 / 6496 2441 / 2441 Output Total 500 / 500 4800 / 4800 800 / 800 Balance -500 / -500 1696 / 1696 1641 / 1641 Weight 79.038 kg 78.5 kg 79.435 kg - *Routine HEENT Exam Head: Present: normocephalic, atraumatic Eye: Present: EOMI, PERRL ENT: Present: mucous membranes moist - *Routine Neck Exam Present: supple, full ROM. Absent: JVD - *Routine Respiratory Exam Present: CTA bilaterally. Absent: prolonged expiratory phase, rales, wheezes - *Routine Cardiovascular Exam Present: RRR, Normal S1, Normal S2. Absent: murmur - *Routine Abdominal Exam Present: soft, normoactive bowel sounds - *Routine Rectal Exam Patient deferred: visual exam - *Routine Exam Patient deferred: external exam - *Routine Extremities Exam Absent: cyanosis, clubbing, edema - *Routine Skin Exam Present: intact. Absent: cyanosis, erythema - *Routine Neurological Exam Present: alert, oriented X3, CN II-XII intact. Absent: altered mental status Assessment and Plan (1) DKA (diabetic ketoacidoses) Current visit: Yes Status: Acute Qualifiers: Diabetes mellitus type: type 1 Diabetes mellitus complication detail: without coma Qualified Code(s): E10.10 - Type 1 diabetes mellitus with ketoacidosis without coma Category: Medical Code(s): E13.10 - Other specified diabetes mellitus with ketoacidosis without coma Due to poorly controlled diabetes -Initiated basal insulin last night, transition to subcu correction today -Advance diet as tolerated -Discontinue insulin drip -Labs every 12 until patient eating regularly -Counseling on sick day management (2) Hypophosphatemia Current visit: Yes Status: Acute Category: Medical Code(s): E83.39 - Other disorders of phosphorus metabolism Depletion due to DKA and poor p.o. intake. Aggressive repletion this morning. Repeat labs at noon. Continue with IV and oral hydration and results -Monitor for worsening symptoms -Continue telemetry until phosphorus levels improved (3) Refeeding syndrome Current visit: Yes Status: Acute Category: Medical Code(s): E87.8 - Other disorders of electrolyte and fluid balance, not elsewhere classified (4) Hypokalemia Current visit: Yes Status: Acute Category: Medical Code(s): E87.6 - Hypokalemia Due to DKA, repletion with oral and IV repeat labs this afternoon to monitor
[2018-09-09 12:32] LABS: Anion Gap 11.6 mEq/L (5-15); Calcium 7.6 mg/dL (8.5-10.1); Potassium 3.6 mmoL/L (3.5-5.1)
[2018-09-09 12:34] LABS: Phosphorous 1.6 mg/dL (2.4-4.9)
--- NOTE | 2018-09-09 14:23 | Discharge Summary ---
General - General Admission date:: 09/07/18 Discharge date: 09/10/18 HPI HPI: 28-year-old white female with approximately 12-15-year history of type 1 diabetes, whose history is riddled with multiple admissions for DKA, medical noncompliance, long stretches of non-attendance at appointments/changing to multiple physicians over the past for 5 years who was discharged from [facility] on Wednesday presented to the ED with hyperglycemia, shortness of breath, nausea, vomiting and diarrhea. Patient states she has taken her insulin as prescribed since she was discharged on Wednesday. Reports she woke up Wednesday morning with nausea, vomiting, diarrhea and body aches. States symptoms worsened yesterday and despite her basal and sliding scale insulin she was unable to get her FSBS below 400. She then became short of breath and came to the ED for evaluation. In the ED, she was found to be in DKA. She was given IVF bolus and started on an insulin gtt. She has had one episode of vomiting since her admission, no further diarrhea. Denies cough or congestion. No urinary symptoms. Patient was admitted to step-down for insulin gtt and DKA management. Hospital Course Hospital Course: Ms. Hoang isabel presented with high anion gap metabolic acidosis significant for diabetic ketoacidosis. Initially had a difficult time with access and maintaining appropriate insulin regimen delaying closure of her gap. Eventually closed after approximately 36 hours of hospitalization. She additionally developed hyponatremia, and hypokalemia secondary to treatment of her DKA initiating treatment for refeeding syndrome and hyperkalemia. She required significant phosphorus repletion and potassium repletion. These values normalized and patient began to improve. Further workup to assess for source of infection causing her DKA led to discovery of a urinary tract infection and C. difficile colitis. Treatment was begun with Levaquin for her UTI and Flagyl for her C. difficile. Tolerating regular diet, though not her normal volume, on day of discharge. Feeling significantly better. Hemodynamically stable with essentially normal electrolytes. Patient medically stable for discharge home. Home diabetes regimen was changed as follows Patient to initiate basal insulin (basaglar) nightly with 40 units. -Scheduled mealtime Humalog as follows: --10 units with each meal on Wednesday --12 units with meal on Wednesday --15 units with each meal starting on Wednesday and thereafter Instructed to call office if blood sugars consistently above 200 for adjustments to basal-bolus regimen Patient to monitor blood sugar with fingerstick glucose checks before meals and at bedtime Plan for follow-up on Wednesday with me in clinic. Objective Vital signs: Temp Pulse Resp BP Pulse Ox 97.5 F L 79 18 124/86 99 09/09/18 11:36 09/09/18 11:36 09/09/18 11:36 09/09/18 11:36 09/09/18 11:36 no acute distress, obese - *Routine HEENT Exam Head: Present: normocephalic, atraumatic Eye: Present: EOMI ENT: Present: mucous membranes moist Comments: Right-sided cataract - *Routine Neck Exam Present: supple, full ROM. Absent: lymphadenopathy - *Routine Respiratory Exam Present: CTA bilaterally. Absent: prolonged expiratory phase, wheezes - *Routine Cardiovascular Exam Present: RRR, Normal S1, Normal S2. Absent: murmur - *Routine Abdominal Exam Present: soft Comments: Minimal tenderness, hyperactive bowel sounds - *Routine Rectal Exam Patient deferred: visual exam - *Routine Exam Patient deferred: external exam - *Routine Extremities Exam Absent: cyanosis, clubbing, edema - *Routine Skin Exam Present: intact. Absent: cyanosis, erythema - *Routine Neurological Exam Present: alert, oriented X3, CN II-XII intact. Absent: altered mental status Results Labs on day of discharge: Labs from last 24 hours 09/09/18 09/09/18 09/09/18 14:07 12:12 11:02 WBC RBC Hgb Hct MCV MCH MCHC RDW Plt Count MPV Neut % (Auto) Lymph % (Auto) [place] % (Auto) Eos % (Auto) Baso % (Auto) Neut # (Auto) Lymph # (Auto) [place] # (Auto) Eos # (Auto) Baso # (Auto) Sodium 137 Potassium 3.6 Chloride 108 H Carbon Dioxide 21 Anion Gap 11.6 BUN 4 L Creatinine 0.82 Estimated Creat Clear 129 Estimated GFR 84 Est GFR ( Amer) 101 Glucose 258 H D POC Glucose 238 H 274 H Calcium 7.6 L Phosphorus 1.6 L D Magnesium 1.5 Urine Opiates Screen Urine Methadone Screen Ur Barbituates Screen Ur Phencyclidine Scrn Ur Amphetamines Screen U Benzodiazepines Scrn Urine Cocaine Screen U Marijuana (THC) Screen Acetone Level 10/11/1509/09/18 09/09/18 08:40 06:05 05:26 WBC RBC Hgb Hct MCV MCH MCHC RDW Plt Count MPV Neut % (Auto) Lymph % (Auto) [place] % (Auto) Eos % (Auto) Baso % (Auto) Neut # (Auto) Lymph # (Auto) [place] # (Auto) Eos # (Auto) Baso # (Auto) Sodium Potassium Chloride Carbon Dioxide Anion Gap BUN Creatinine Estimated Creat Clear Estimated GFR Est GFR ( Amer) Glucose POC Glucose 151 H 149 H Calcium Phosphorus 0.7 L D Magnesium 1.6 D Urine Opiates Screen Urine Methadone Screen Ur Barbituates Screen Ur Phencyclidine Scrn Ur Amphetamines Screen U Benzodiazepines Scrn Urine Cocaine Screen U Marijuana (THC) Screen Acetone Level 09/09/18 09/09/18 09/09/18 05:26 04:01 02:56 WBC RBC Hgb Hct MCV MCH MCHC RDW Plt Count MPV Neut % (Auto) Lymph % (Auto) [place] % (Auto) Eos % (Auto) Baso % (Auto) Neut # (Auto) Lymph # (Auto) [place] # (Auto) Eos # (Auto) Baso # (Auto) Sodium 136 Potassium 3.1 L Chloride 109 H Carbon Dioxide 19 L Anion Gap 11.1 BUN 5 L Creatinine 0.75 Estimated Creat Clear 140 Estimated GFR 93 Est GFR ( Amer) 112 Glucose 155 H POC Glucose 148 H 113 H Calcium 7.6 L Phosphorus Magnesium Urine Opiates Screen Urine Methadone Screen Ur Barbituates Screen Ur Phencyclidine Scrn Ur Amphetamines Screen U Benzodiazepines Scrn Urine Cocaine Screen U Marijuana (THC) Screen Acetone Level 09/09/18 09/09/18 09/08/18 01:56 00:30 23:41 WBC RBC Hgb Hct MCV MCH MCHC RDW Plt Count MPV Neut % (Auto) Lymph % (Auto) [place] % (Auto) Eos % (Auto) Baso % (Auto) Neut # (Auto) Lymph # (Auto) [place] # (Auto) Eos # (Auto) Baso # (Auto) Sodium 135 L Potassium 3.3 L Chloride 107 Carbon Dioxide 20 L D Anion Gap 11.3 BUN 5 L D Creatinine 0.76 Estimated Creat Clear 138 Estimated GFR 91 Est GFR ( Amer) 110 D Glucose 132 H POC Glucose 85 127 H Calcium 7.6 L Phosphorus Magnesium Urine Opiates Screen Urine Methadone Screen Ur Barbituates Screen Ur Phencyclidine Scrn Ur Amphetamines Screen U Benzodiazepines Scrn Urine Cocaine Screen U Marijuana (THC) Screen Acetone Level 09/08/18 09/08/18 09/08/18 22:02 20:24 18:09 WBC RBC Hgb Hct MCV MCH MCHC RDW Plt Count MPV Neut % (Auto) Lymph % (Auto) [place] % (Auto) Eos % (Auto) Baso % (Auto) Neut # (Auto) Lymph # (Auto) [place] # (Auto) Eos # (Auto) Baso # (Auto) Sodium Potassium Chloride Carbon Dioxide Anion Gap BUN Creatinine Estimated Creat Clear Estimated GFR Est GFR ( Amer) Glucose POC Glucose 164 H 162 H 135 H Calcium Phosphorus Magnesium Urine Opiates Screen Urine Methadone Screen Ur Barbituates Screen Ur Phencyclidine Scrn Ur Amphetamines Screen U Benzodiazepines Scrn Urine Cocaine Screen U Marijuana (THC) Screen Acetone Level 09/08/18 09/08/18 09/08/18 18:03 18:03 16:19 WBC RBC Hgb Hct MCV MCH MCHC RDW Plt Count MPV Neut % (Auto) Lymph % (Auto) [place] % (Auto) Eos % (Auto) Baso % (Auto) Neut # (Auto) Lymph # (Auto) [place] # (Auto) Eos # (Auto) Baso # (Auto) Sodium 131 L Potassium 3.6 Chloride 104 Carbon Dioxide 15 L D Anion Gap 15.6 H BUN 7 Creatinine 0.93 Estimated Creat Clear 113 Estimated GFR 72 Est GFR ( Amer) 88 Glucose 137 H D POC Glucose 146 H Calcium 7.8 L Phosphorus Magnesium Urine Opiates Screen Urine Methadone Screen Ur Barbituates Screen Ur Phencyclidine Scrn Ur Amphetamines Screen U Benzodiazepines Scrn Urine Cocaine Screen U Marijuana (THC) Screen Acetone Level Small 09/08/18 09/08/18 09/08/18 14:20 14:20 12:45 WBC 10.5 RBC 4.53 Hgb 11.7 L Hct 37.8 MCV 83.4 MCH 25.7 L MCHC 30.8 L RDW 15.1 Plt Count 320 MPV 8.5 Neut % (Auto) 82.6 H Lymph % (Auto) 12.4 [place] % (Auto) 4.6 Eos % (Auto) 0.1 Baso % (Auto) 0.3 Neut # (Auto) 8.7 H Lymph # (Auto) 1.3 [place] # (Auto) 0.5 Eos # (Auto) 0.0 Baso # (Auto) 0.0 Sodium 133 L Potassium 3.4 L D Chloride 105 Carbon Dioxide 9 L* D Anion Gap 22.4 H BUN 8 Creatinine 0.97 Estimated Creat Clear 108 Estimated GFR 69 Est GFR ( Amer) 83 Glucose 200 H POC Glucose Calcium 7.8 L Phosphorus Magnesium Urine Opiates Screen Negative Urine Methadone Screen Negative Ur Barbituates Screen Negative Ur Phencyclidine Scrn Negative Ur Amphetamines Screen Negative U Benzodiazepines Scrn Negative Urine Cocaine Screen Negative U Marijuana (THC) Screen Negative Acetone Level Preliminary micro results at discharge 09/08/18 12:45 Urine Culture - Preliminary Urine,Clean Catch DS: Diagnosis - Discharge Diagnosis (1) DKA (diabetic ketoacidoses) Status: Resolved (2) Hypophosphatemia Status: Resolved (3) Refeeding syndrome Status: Resolved (4) Hypokalemia Status: Resolved Discharge Plan - Patient Discharge Instructions ACTIVITY: Continue current activity DIET: continue same diet - Follow up Plan Follow up with: Srini Ayala MD [Staff Physician] - (09/16/18 at 3:30 PM) Disposition: Home, Self-Prison Medications: Home Medications Medication Instructions Recorded Confirmed Type Venlafaxine HCl [Effexor 37.5mg 37.5 mg PO DAILY 04/05/18 09/07/18 History tablet] Baclofen [Lioresal 10mg tablet] 10 mg PO BID 08/10/18 09/07/18 History Ondansetron HCl [Ondansetron 4mg 4 mg PO TID 09/07/18 09/07/18 History Tablet] OXcarbazepine [Oxcarbazepine] 1,200 mg PO BID 09/08/18 09/08/18 History Prescriptions/Medication Reconciliation: New OXcarbazepine [Trileptal 300mg tablet] 1,200 mg PO BID 30 Days #120 tablet Lacosamide [Vimpat] 200 mg PO TID #90 metroNIDAZOLE [metroNIDAZOLE 500mg Tablet] 500 mg PO TID 9 Days #27 tablet Continue levetiracetam 500 mg tablet 2,500 mg PO BID #60 tab Baclofen [Lioresal 10mg tablet] 10 mg PO BID Insulin Lispro [Humalog Kwikpen U-100] See Rx Instructions SUB-Q .with meals 30 Days #15 ml Apixaban [Eliquis] 5 mg PO BID #60 tab Venlafaxine HCl [Effexor 37.5mg tablet] 37.5 mg PO DAILY OXcarbazepine [Oxcarbazepine] 1,200 mg PO BID Changed Insulin Glargine,Hum.rec.anlog [Basaglar Kwikpen U-100] 40 unit SQ HS 30 Days #3 insuln.pen Discontinued polyethylene glycol 3350 17 gram oral powder packet 17 g PO DAILY #168 each Ondansetron HCl [Ondansetron 4mg Tablet] 4 mg PO TID
[2018-09-09 18:41] LABS: Anion Gap 11.6 mEq/L (5-15); Calcium 7.8 mg/dL (8.5-10.1); Potassium 3.6 mmoL/L (3.5-5.1)
[2018-09-09 19:10] LABS: Phosphorous 1.2 mg/dL (2.4-4.9)
[2018-09-10 09:47] LABS: Anion Gap 9.6 mEq/L (5-15); Calcium 7.6 mg/dL (8.5-10.1); Phosphorous 2.4 mg/dL (2.4-4.9); Potassium 3.6 mmoL/L (3.5-5.1)
[2018-09-10 12:33] VITALS: BP 147/90
== END 2018-09-10 12:50 | disposition home or self-care (01) ==
LOC: ER 15:35 → 2ND 16:58
PROVIDERS: ADMIT Emergency Medicine; ATTEND Internal Medicine Adolescent Medicine

== ENCOUNTER → 2018-09-16 13:08 | Outpatient (CLI) | payer MEDICAID, SELFPAY ==
[2018-09-16 15:08] LABS: Hemoglobin A1C 11.6 % (0.0-7.0)
== END ==
PROVIDERS: PCP Internal Medicine Adolescent Medicine; Visit Provider Internal Medicine Adolescent Medicine
DX: E10.8 Type 1 diabetes mellitus with unspecified complications (principal)
CPT/HCPCS: 36415; 83036

== ENCOUNTER → 2018-09-30 16:09 | Outpatient (CLI) | payer MEDICAID, SELFPAY ==
[2018-09-30 17:15] LABS: Alanine Aminotransferase 32 U/L (12-78); Albumin Level 3.6 gm/dL (3.4-5.0); Albumin/Globulin Ratio 0.8 (1.1-1.8); Alkaline Phosphatase 147 U/L (46-116); Anion Gap 16.2 mEq/L (5-15); Aspartate Amino Transferase 23 U/L (15-37); Bilirubin,Total 0.3 mg/dL (0.2-1.0); Blood Urea Nitrogen 15 mg/dL (7-18); Carbon Dioxide 23 mmol/L (21.0-32.0); Chloride 98 mmol/L (98-107); Creatinine,Serum 0.65 mg/dL (0.55-1.02); Estimated Glomerular Filt Rate 109 ml/min (>60); GFR (African American) 132 ML/MIN (>60); Globulin 4.4 gm/dl (1.3-3.2); Potassium 4.2 mmoL/L (3.5-5.1); Sodium 133 mmol/L (136-145)
[2018-09-30 17:21] LABS: Glucose 434 mg/dL (74-106)
== END ==
PROVIDERS: Visit Provider Internal Medicine Adolescent Medicine
DX: E10.8 Type 1 diabetes mellitus with unspecified complications (principal)
CPT/HCPCS: 36415; 80053

== ENCOUNTER → 2018-10-18 13:30 | Outpatient (CLI) | payer MEDICAID, SELFPAY ==
[2018-10-18 15:23] LABS: Alanine Aminotransferase 21 U/L (12-78); Albumin Level 3.7 gm/dL (3.4-5.0); Albumin/Globulin Ratio 0.8 (1.1-1.8); Alkaline Phosphatase 178 U/L (46-116); Anion Gap 14.2 mEq/L (5-15); Aspartate Amino Transferase 9 U/L (15-37); Bilirubin,Total 0.2 mg/dL (0.2-1.0); Blood Urea Nitrogen 17 mg/dL (7-18); Calcium 9.3 mg/dL (8.5-10.1); Carbon Dioxide 26 mmol/L (21.0-32.0); Chloride 96 mmol/L (98-107); Creatinine,Serum 0.71 mg/dL (0.55-1.02); Estimated Glomerular Filt Rate 99 ml/min (>60); GFR (African American) 119 ML/MIN (>60); Globulin 4.7 gm/dl (1.3-3.2); Glucose 379 mg/dL (74-106); Potassium 4.2 mmoL/L (3.5-5.1); Sodium 132 mmol/L (136-145); Total Protein,Serum 8.4 gm/dL (6.4-8.2)
== END ==
PROVIDERS: PCP Internal Medicine Adolescent Medicine; Visit Provider Internal Medicine Adolescent Medicine
DX: E10.8 Type 1 diabetes mellitus with unspecified complications (principal)
CPT/HCPCS: 36415; 80053

== ENCOUNTER 2018-11-03 14:41 | Observation (INO) ==
[2018-11-03 15:12] LABS: Microscopic, Urine URINE MICROSCOPIC (MICROSCOPIC)
[2018-11-03 15:16] LABS: Appearance,Urine CLEAR (Clear); Blood, Urine Negative (Negative); Color,Urine YELLOW (Yellow); Glucose,Urine (UA) 3+ (Negative); Ketones,Urine 3+ (Negative); Leukocyte Esterase,Urine Negative (Negative); PH,Urine 5.5 (5.0-8.5); Protein,Urine 2+ (Negative); Specific Gravity, Urine >= 1.030 (1.005-1.030); Urobilinogen,Urine 0.2 EU/dl (0.2)
[2018-11-03 15:36] LABS: Bilirubin,Urine Negative (Negative)
[2018-11-03 15:37] LABS: Bacteria,Urine 1+ /lpf
[2018-11-03 16:16] LABS: Basophils # 0.1 K/mm3 (0-0.2); Basophils % 0.8 % (0.1-2.0); Eosinophils # 0.1 K/mm3 (0.0-0.4); Hematocrit 37.9 % (37.0-47.0); Lymphocytes # 1.8 K/mm3 (0.7-4.5); Lymphocytes % 23.7 % (10-50); Mean Corpuscular HGB Conc 31.5 g/dL (31.8-35.4); Mean Corpuscular Hemoglobin 24.7 pg (27.0-31.2); Mean Corpuscular Volume 78.3 fl (81-99); Mean Platelet Volume 8.4 fl (7.4-10.4); Monocytes # 0.3 K/mm3 (0.1-1.0); Monocytes % 3.3 % (1.7-9.3); Neutrophils # 5.4 K/mm3 (1.8-7.8); Neutrophils % 71.2 % (37.0-80.0); Platelet Count 269 K/mm3 (142-424); Red Blood Count 4.84 M/mm3 (4.20-5.40); Red Cell Distribution Width 15.2 % (11.5-17.5); White Blood Count 7.6 K/mm3 (4.8-10.8)
--- NOTE | 2018-11-03 16:20 | Emergency Department Note ---
ED Disposition Clinical Impression: Dehydration, Type 1 diabetes mellitus with hyperglycemia DKA (diabetic ketoacidoses) Qualifiers: Diabetes mellitus type: type 1 Diabetes mellitus complication detail: without coma Qualified Code(s): E10.10 - Type 1 diabetes mellitus with ketoacidosis without coma Disposition: Home, Self-Care Condition on Discharge: Fair (Stable) Referrals: Km Reynaga MD [Staff Physician] - Time of Disposition: 18:11 - Critical Care Critical Care Time: No Attestation: On 11/03/18, the high probability of a clinically significant, sudden or life t hreatening deterioration of the following system(s) required my full and direct attention, intervention and personal management. The time I documented below is in addition to time spent performing reported procedures but includes the following listed in this critical care notation. Medical Decision Making - Medical Records Medical records reviewed: Yes: I reviewed the patient's medical records. - Jamari Inquiry Pt receiving controlled substance: No Jamari was queried for this patient: No Vital Signs: 11/03/18 14:49 11/03/18 15:11 11/03/18 16:24 Temperature 98.3 F Temperature Source Oral Pulse Rate [Right Brachial] 77 83 71 Respiratory Rate 20 18 16 Blood Pressure [Right Arm] 147/110 H 147/75 H 138/81 Blood Pressure Mean [Right Arm] 122 99 100 Blood Pressure Source [Right Arm] Automatic Cuff Automatic Cuff Automatic Cuff Blood Pressure Position [Right Arm] Sitting Sitting Sitting 02 Sat by Pulse Oximetry 100 100 99 Oxygen Delivery Method Room Air Room Air Room Air - Lab Data Lab Results 11/03/18 10:50: Urine Color Yellow, Urine Appearance Clear, Urine pH 5.5, Ur Specific [place] >= 1.030, Urine Protein 2+, Urine Glucose (UA) 3+, Urine Ketones 3+, Urine Blood Negative, Urine Nitrate Negative, Urine Bilirubin Negative, Urine Urobilinogen 0.2, Ur Leukocyte Esterase Negative, Urine RBC None, Urine WBC 3-5, Ur Squamous Epith Cells 10-20, Urine Bacteria 1+ 11/03/18 15:09: POC Glucose 331 H* 11/03/18 16:05: WBC 7.6, RBC 4.84, Hgb 12.0 L, Hct 37.9, MCV 78.3 L, MCH 24.7 L, MCHC 31.5 L, RDW 15.2, Plt Count 269, MPV 8.4, Neut % (Auto) 71.2, Lymph % (Auto) 23.7, [place] % (Auto) 3.3, Eos % (Auto) 1.0, Baso % (Auto) 0.8, Neut # (Au to) 5.4, Lymph # (Auto) 1.8, [place] # (Auto) 0.3, Eos # (Auto) 0.1, Baso # (Auto) 0.1 11/03/18 16:05: Sodium 132 L, Potassium 3.8, Chloride 96 L, Carbon Dioxide 16 L, Anion Gap 23.8 H, BUN 15, Creatinine 0.80, Estimated Creat Clear 135, Estimated GFR 86, Est GFR ( Amer) 104, Glucose 307 H, Calcium 8.5, Total Bilirubin 0.3, AST 12 L, ALT 20, Alkaline Phosphatase 173 H, Troponin I < 0.02, Total Protein 8.4 H, Albumin 3.5, Globulin 4.9 H, Albumin/Globulin Ratio 0.7 L 11/03/18 16:05: Influenza Type A Ag Negative, Influenza Type B Ag Negative 11/03/18 16:10: Acetone Level Small Result diagrams: 11/03/18 16:05 11/03/18 16:05 Orders (Tests/Meds): ED MEDICATIONS Generic Name Dose Route Start Last Admin Trade Name Freq PRN Reason Stop Dose Admin Sodium Chloride 1,000 mls @ 999 mls/hr 11/03/18 16:30 11/03/18 16:23 Sod Chlor 0.9% 1000ml Bag IV 11/03/18 17:30 999 mls/hr .[id number] DALIA Administration Discontinued Medications Generic Name Dose Route Start Last Admin Trade Name Freq PRN Reason Stop Dose Admin Ondansetron HCl 4 mg 11/03/18 16:19 11/03/18 16:22 Zofran 4mg/2ml Vial IV 11/03/18 16:20 4 mg ONCE ONE Administration ORDERS Category Date Time Status Urinalysis and Microscopic Stat Lab 11/03/18 10:50 Ordered ABG [Arterial Blood Gas] Stat RT 11/03/18 17:56 Ordered - ECG Data Tracing #1 I reviewed this ECG and interpreted as documented below: (EKG at 14:58 showed NSR at 74 BPM with possible right ventricular condution delay with RSR' or QR pattern in V1. Possible inferior infarct, age undetermined.) Medical Decision Narrative: 16:24 Pt evaluated. EKG, PCXR. screening labs and IV fluids ordered. 18:04 All labs, PCXR report and screening labs reviewed. Pt appears to be clinically dehydrated and early DKA. I have ordered additional IV fluids of 1 L 0.9% NS @ 150 cc/hr, Phenergan 12.5 mg IVPB for persistent nausea, 10 units Regular insulin IV, and an ABG. I have discussed case with Dr. Golden. I will admit this pt to care of Dr. Reynaga with Dr. Golden taking call. Results of work up, diagnosis and care plan discussed with pt and family. They understand, agree and all questions answered. General Adult HPI - General Chief complaint: Chest Pain Stated complaint: cough,lung discomfort Time Seen by Provider: 11/03/18 16:05 Mode of Arrival: Ambulatory Source of Information: Patient Limitations: No Limitations Description of Symptoms (Recalled from ER Triage Doc. by RN): Pt states she is having CP, rib pain, SOA, high sugar, cough, body aches and weakness, and strong smelling urine, has a hx of DKA and her PCP sent her here to rule out being in DKA - History of Present Illness HPI narrative: Pt is here in the ER for evaluation from PCP office. Pt has IDDM and is co mplaining of having some SOB, right sided lower chest discomfort, right flank pain, nausea, decreased appetite and elevated glucose over 500 last night and over 300 this morning. Pt also c/o strong smelling urine. History of IDDM with recurrent DKA episodes. No other complaints. Pt on Eliquis for history of previous PE's. - Related Data Home Medications Medication Instructions Recorded Confirmed Venlafaxine HCl [Effexor 37.5mg 37.5 mg PO DAILY 04/05/18 09/07/18 tablet] Baclofen [Lioresal 10mg tablet] 10 mg PO BID 08/10/18 09/07/18 OXcarbazepine [Oxcarbazepine] 1,200 mg PO BID 09/08/18 09/08/18 Previous Rx's Medication Instructions Recorded levetiracetam 500 mg tablet 2,500 mg PO BID #60 tab 08/24/18 Apixaban [Eliquis] 5 mg PO BID #60 tab 09/10/18 Insulin Glargine,Hum.rec.anlog 40 unit SQ HS 30 Days #3 insuln.pen 09/10/18 [Basaglar Kwikpen U-100] Insulin Lispro [Humalog Kwikpen See Rx Instructions SUB-Q .with 09/10/18 U-100] meals 30 Days #15 ml Lacosamide [Vimpat] 200 mg PO TID #90 09/10/18 OXcarbazepine [Trileptal 300mg 1,200 mg PO BID 30 Days #120 tablet 09/10/18 tablet] Allergies Allergy/AdvReac Type Severity Reaction Status Date / Time buspirone [BUSPIRONE] Allergy Unknown Verified 11/03/18 14:58 nitrofurantoin Allergy Unknown Verified 11/03/18 14:58 [NITROFURANTOIN] sulfamethoxazole Allergy Unknown Verified 11/03/18 14:58 [From BACTRIM] topiramate [From TOPAMAX] Allergy Unknown Verified 11/03/18 14:58 trimethoprim [From BACTRIM] Allergy Unknown Verified 11/03/18 14:58 adhesive tape AdvReac Intermediate SKIN Verified 11/03/18 14:58 IRRITATION [facility] History I have reviewed the patient's past medical history: Yes Medical History: Reports:: Arrhythmia, Deep Vein Thrombosis, Depression, Diabetes Mellitus Type 1, Diabetes Mellitus Type 2, Palpitations, Pulmonary Embolism, Seizures Denies:: Cancer, MRSA Other Medical History: Reports: Anemia, Other. Denies: Blood Transfusion Reaction Other Surgeries: Yes: Appendectomy, Cholecystectomy, Dilation and Curettage, Hysterectomy-Partial ("everything but left ovary"), Tubal Ligation, Other Amputation: No Fractures: No Comment: Ablation 10/30/2016 - Social History Smoking Status: Current some day smoker Tobacco Type: smokeless tobacco #Yrs smoked (if former smoker): 4 Alcohol Intake: never Alcohol Intake Frequency:: a few times a month Substance Use Type: former substance user Occupational Status: disabled Housing: house Household Members: family Comment: Marked medical noncompliance - Psychiatric History Expresses thoughts of harming self/others: None Suicide Plan Description: No Plan Pschychiatric History:: Reports:: Depression Family Hx:: Diabetes, Hypertension, Coronary Artery Disease ROS Obtained: Yes All systems reviewed & no additional complaints - Constitutional Constitutional: Reports system reviewed and no additional complaints, except as docu, Reports body ache, Reports other (mylagias) - Eyes Eyes: Reports system reviewed and no additional complaints, except as docu - ENT Ears, Nose, Mouth, and Throat: Reports system reviewed and no additional complaints, except as docu - Cardiovascular Cardiovascular: Reports system reviewed and no additional complaints, except as docu, Denies chest pain - Respiratory Respiratory: Yes system reviewed and no additional complaints, except as docu, No cough, Yes dyspnea - Gastrointestinal Gastrointestingal: Reports: system reviewed and no additional complaints, except as docu - Genitourinary Female Genitourinary: Reports system reviewed and no additional complaints, except as docu, Reports other (Malodorous urine) - Musculoskeletal Musculoskeletal: Reports system reviewed and no additional complaints, except as docu, Reports muscle aches, Reports other (right CVA discomfort.) - Integumentary/Breasts Skin/Breast: Reports system reviewed and no additional complaints, except as docu - Neurologic Neurologic: Reports system reviewed and no additional complaints, except as docu - Endocrine Endocrine: Reports system reviewed and no additional complaints, except as docu, Reports fatigue, Reports other (elevated glucose last night and this morning.) - Hematologic/Lymphatic Henatologic/Lymphatic: Reports system reviewed and no additional complaints, except as docu - Allergic/Immunologic Allergic/Immunologic: Reports system reviewed and no additional complaints, except as docu Physical Exam - General General appearance: alert, in no apparent distress, other (tearful) - Head Head exam: atraumatic, normocephalic, normal inspection - Eye Eye exam: Present: normal appearance, PERRL, EOMI. Absent: discharge - ENT ENT exam: Present: mucous membranes dry, other (dry lips. (+) lower lip ring.) - Neck Neck exam: Present: trachea midline - Chest Chest inspection: Present: symmetric chest wall rise, other ((+) Right upper chest midline port.) - Respiratory Respiratory exam: Present: normal lung sounds bilaterally. Absent: respiratory distress, wheezes, stridor - Cardiovascular Cardiovascular exam: Present: regular rate, normal heart sounds - Abdominal Exam Abdominal exam: Present: soft, normal bowel sounds. Absent: distention, tenderness, guarding, rebound, rigidity, Guerra's sign, tenderness at McBurney's Point - Extremities Exam Extremities exam: Present: normal inspection, full ROM - Back Exam Back exam: Present: CVA tenderness (R). Absent: CVA tenderness (L) - Neurological Exam Neurological exam: Present: alert, oriented X3, CN II-XII intact - Psychiatric Psychiatric exam: Present: depressed, other (tearful) - Skin Skin exam: Present: warm, dry, intact, normal color, other (decreased turgor). Absent: rash - Lymphatic Lymphatic Findings: no adenopathy
[2018-11-03 16:30] LABS: Alanine Aminotransferase 20 U/L (12-78); Albumin Level 3.5 gm/dL (3.4-5.0); Albumin/Globulin Ratio 0.7 (1.1-1.8); Alkaline Phosphatase 173 U/L (46-116); Anion Gap 23.8 mEq/L (5-15); Aspartate Amino Transferase 12 U/L (15-37); Bilirubin,Total 0.3 mg/dL (0.2-1.0); Blood Urea Nitrogen 15 mg/dL (7-18); Calcium 8.5 mg/dL (8.5-10.1); Carbon Dioxide 16 mmol/L (21.0-32.0); Chloride 96 mmol/L (98-107); Globulin 4.9 gm/dl (1.3-3.2); Glucose 307 mg/dL (74-106); Potassium 3.8 mmoL/L (3.5-5.1); Sodium 132 mmol/L (136-145); Total Protein,Serum 8.4 gm/dL (6.4-8.2)
[2018-11-03 19:44] LABS: ABG Base Excess -9.1 mmol/L (-2.4-2.3); ABG HCO3 15.4 mmhg (22.0-26.0); ABG Oxygen Saturation 98 % (90-100); ABG PCO2 24.5 mmhg (35.0-45.0); ABG PH 7.42 mmol/L (7.35-7.45); ABG PO2 110.4 mmhg (80-100); ABG TCO2 16.1 mmhg (23-27)
[2018-11-03 19:45] LABS: Allen's Test Acceptable; Oxygen ROOM AIR %
--- NOTE | 2018-11-04 07:42 | Pharmacy Consult Notes ---
[facility] Pharmacy VTE Monitoring - Patient Demographics Admission date: 11/03/18 Report Date: 11/04/18 Time: 07:42 Allergies/Adverse Reactions: Patient Allergies buspirone [BUSPIRONE] Allergy (Unknown, Verified 11/03/18 18:51) nitrofurantoin [NITROFURANTOIN] Allergy (Unknown, Verified 11/03/18 18:51) sulfamethoxazole [From BACTRIM] Allergy (Unknown, Verified 11/03/18 18:51) topiramate [From TOPAMAX] Allergy (Unknown, Verified 11/03/18 18:51) trimethoprim [From BACTRIM] Allergy (Unknown, Verified 11/03/18 18:51) adhesive tape Adverse Reaction (Intermediate, Verified 11/03/18 18:51) SKIN IRRITATION Height: 1.6 m Weight: 80.484 kg Patient Problems: Current Active Problems Dehydration (Acute) DKA (diabetic ketoacidoses) (Acute) Hyperglycemia due to type 1 diabetes mellitus (Acute) - VTE Risk Labs: VTE Related Lab Results Hgb 12.0 g/dL (12.2-16.2) L 11/03/18 16:05 Hct 37.9 % (37.0-47.0) 11/03/18 16:05 Plt Count 269 K/mm3 (142-424) 11/03/18 16:05 BUN 15 mg/dL (7-18) 11/03/18 16:05 Creatinine 0.80 mg/dL (0.55-1.02) 11/03/18 16:05 Estimated Creat Clear 135 mL/min (50-200) 11/03/18 16:05 Was VTE Risk Assessment Performed: Yes VTE Score: 5 VTE Risk Level: Low Risk Clinical Trial Participant: No - Prophylaxis VTE Prophylaxis Ordered?: Yes Types of VTE Prophylaxis: TEDS Knee High
[2018-11-04 09:18] LABS: Basophils % 0.9 % (0.1-2.0); Eosinophils # 0.1 K/mm3 (0.0-0.4); Eosinophils % 1.4 % (0.1-12.0); Hematocrit 33.6 % (37.0-47.0); Lymphocytes # 1.2 K/mm3 (0.7-4.5); Lymphocytes % 26.4 % (10-50); Mean Corpuscular HGB Conc 31.6 g/dL (31.8-35.4); Mean Corpuscular Hemoglobin 24.7 pg (27.0-31.2); Mean Corpuscular Volume 78.2 fl (81-99); Mean Platelet Volume 8.7 fl (7.4-10.4); Monocytes # 0.2 K/mm3 (0.1-1.0); Monocytes % 4.9 % (1.7-9.3); Neutrophils # 3.1 K/mm3 (1.8-7.8); Neutrophils % 66.4 % (37.0-80.0); Platelet Count 239 K/mm3 (142-424); Red Blood Count 4.29 M/mm3 (4.20-5.40); Red Cell Distribution Width 15.6 % (11.5-17.5); White Blood Count 4.7 K/mm3 (4.8-10.8)
[2018-11-04 09:25] LABS: Albumin/Globulin Ratio 0.8 (1.1-1.8); Anion Gap 15.9 mEq/L (5-15); Bilirubin,Total 0.3 mg/dL (0.2-1.0); Calcium 7.8 mg/dL (8.5-10.1); Potassium 3.9 mmoL/L (3.5-5.1)
[2018-11-04 09:39] LABS: Hemoglobin 10.7 g/dL (12.2-16.2)
--- NOTE | 2018-11-04 13:35 | History & Physical Report ---
*Admission Date: 11/03/18 *Chief complaint: Hyperglycemia/dehydration *History of present illness: 28-year-old white female with type 1 diabetes, with frequent episodes of DKA and multiple comorbidities of obesity, anxiety, seizure disorder, pseudoseizure disorder and multiple drug allergies. In a long history of medical noncompliance and coming to the ER with DKA. Presented to the emergency department as noted with dehydration, hyperglycemia and small acetone. Admitted to hospital for IV fluids and better insulin administration. [facility] History I have reviewed the patient's past medical history: Yes Medical History: Reports:: Arrhythmia, Deep Vein Thrombosis, Depression, Diabetes Mellitus Type 1, Palpitations, Pulmonary Embolism, Seizures Denies:: Cancer, Diabetes Mellitus Type 2, MRSA Other Medical History: Reports: Anemia, Other. Denies: Blood Transfusion Reaction Other Surgeries: Yes: Appendectomy, Cholecystectomy, Dilation and Curettage, Hysterectomy-Partial ("everything but left ovary"), Tubal Ligation, Other Amputation: No Fractures: No - *Social History Educational Level: Completed High School Smoking Status: Former smoker Tobacco Type: cigarettes # Packs/Day (cigarettes): 1 #Yrs smoked (if former smoker): 4 Smoking End Date: Alcohol Intake: former Alcohol Intake Frequency:: holidays/special occasions only Substance Use Type: former substance user Occupational Status: disabled Housing: house Household Members: family - Psychiatric History Expresses thoughts of harming self/others: None Suicide Plan Description: No Plan Pschychiatric History:: Reports:: Depression *Family Hx:: Diabetes, Hypertension, Coronary Artery Disease Review of Systems - Review of Systems Review of systems:: pertinent systems reviewed and negative unless documented below - Constitutional Reports anorexia, Reports body ache(s), Reports daytime sleepiness, Reports lack of energy, Denies chills, Denies excessive sweating - Eyes Denies blind spots, Denies blurry vision, Denies change in vision - ENT Denies abnormal hearing, Denies bleeding gums - *Cardiovascular Denies chest pain, Denies chest pain at rest, Denies shortness of breath, Denies shortness of breath with activity, Denies irregular heart rhythm, Denies leg swelling - *Respiratory Denies change in phlegm color, Denies chest congestion, Denies cough, Denies shortness of breath with activity - *Gastrointestinal Reports abdominal pain, Reports loose stools, Denies feeling full early, Denies incontinent of stools, Denies black, tarry stools - *Genitourinary Denies abnormal periods - *Musculoskeletal Denies abnormal walking - *Neurologic Denies abnormal walking, Denies abnormal hearing - Endocrine Reports increased thirst, Denies cold intolerance, Denies rapid, pounding, or irregular heartbeat, Denies increased hunger - Hematologic/Lymphatic Denies easy bleeding, Denies easy bruising - Allergic/Immunologic Denies GI upset with certain foods Meds Home Medications Medication Instructions Recorded Confirmed Type Venlafaxine HCl [Effexor 37.5mg 37.5 mg PO DAILY 04/05/18 11/03/18 History tablet] Baclofen [Lioresal 10mg tablet] 10 mg PO BIDP PRN 08/10/18 11/04/18 History Insulin Glargine,Hum.rec.anlog 80 unit SQ HS 11/03/18 11/03/18 History [Basaglar Kwikpen U-100] Lacosamide [Vimpat] 200 mg PO TID 11/03/18 11/03/18 History Melatonin 10 mg PO HS 11/03/18 11/03/18 History OXcarbazepine [Trileptal 300mg 1,200 mg PO BID 11/03/18 11/03/18 History tablet] Gabapentin [Gabapentin 100mg Cap] 100 mg PO TID 11/04/18 11/04/18 History Insulin Lispro [Humalog Kwikpen See Rx Instructions SUB-Q AC 11/04/18 11/04/18 History U-100] Allergies Allergy/AdvReac Type Severity Reaction Status Date / Time buspirone [BUSPIRONE] Allergy Unknown Verified 11/03/18 18:51 nitrofurantoin Allergy Unknown Verified 11/03/18 18:51 [NITROFURANTOIN] sulfamethoxazole Allergy Unknown Verified 11/03/18 18:51 [From BACTRIM] topiramate [From TOPAMAX] Allergy Unknown Verified 11/03/18 18:51 trimethoprim [From BACTRIM] Allergy Unknown Verified 11/03/18 18:51 adhesive tape AdvReac Intermediate SKIN Verified 11/03/18 18:51 IRRITATION Exam Vital signs and Labs for Last 24 Hours: Temp Pulse Resp BP Pulse Ox 98.1 F 85 16 113/61 97 11/04/18 08:00 11/04/18 08:00 11/04/18 08:00 11/04/18 08:00 11/04/18 08:00 Laboratory Results - last 24 hr 11/03/18 10:50: Urine Color Yellow, Urine Appearance Clear, Urine pH 5.5, Ur Specific [place] >= 1.030, Urine Protein 2+, Urine Glucose (UA) 3+, Urine Ketones 3+, Urine Blood Negative, Urine Nitrate Negative, Urine Bilirubin Negative, Urine Urobilinogen 0.2, Ur Leukocyte Esterase Negative, Urine RBC None, Urine WBC 3-5, Ur Squamous Epith Cells 10-20, Urine Bacteria 1+ 11/03/18 15:09: POC Glucose 331 H* 11/03/18 16:05: WBC 7.6, RBC 4.84, Hgb 12.0 L, Hct 37.9, MCV 78.3 L, MCH 24.7 L, MCHC 31.5 L, RDW 15.2, Plt Count 269, MPV 8.4, Neut % (Auto) 71.2, Lymph % (Auto) 23.7, [place] % (Auto) 3.3, Eos % (Auto) 1.0, Baso % (Auto) 0.8, Neut # (Auto) 5.4, Lymph # (Auto) 1.8, [place] # (Auto) 0.3, Eos # (Auto) 0.1, Baso # (Auto) 0.1 11/03/18 16:05: Sodium 132 L, Potassium 3.8, Chloride 96 L, Carbon Dioxide 16 L, Anion Gap 23.8 H, BUN 15, Creatinine 0.80, Estimated Creat Clear 135, Estimated GFR 86, Est GFR ( Amer) 104, Glucose 307 H, Calcium 8.5, Total Bilirubin 0.3, AST 12 L, ALT 20, Alkaline Phosphatase 173 H, Troponin I < 0.02, Total Protein 8.4 H, Albumin 3.5, Globulin 4.9 H, Albumin/Globulin Ratio 0.7 L 11/03/18 16:05: Influenza Type A Ag Negative, Influenza Type B Ag Negative 11/03/18 16:10: Acetone Level Small 11/03/18 19:42: Specimen Source Right radial, O2 % Room air, ABG pH 7.42, ABG pCO2 24.5 L, ABG pO2 110.4 H, ABG HCO3 15.4 L, ABG Total CO2 16.1 L, ABG O2 Saturation 98, ABG Base Excess -9.1 L, Agustin Test Acceptable 11/03/18 21:38: POC Glucose 123 H 11/04/18 06:05: POC Glucose 78 11/04/18 09:07: WBC 4.7 L D, RBC 4.29, Hgb 10.7 L D, Hct 33.6 L, MCV 78.2 L, MCH 24.7 L, MCHC 31.6 L, RDW 15.6, Plt Count 239, MPV 8.7, Neut % (Auto) 66.4, Lymph % (Auto) 26.4, [place] % (Auto) 4.9, Eos % (Auto) 1.4, Baso % (Auto) 0.9, Neut # (Auto) 3.1, Lymph # (Auto) 1.2, [place] # (Auto) 0.2, Eos # (Auto) 0.1, Baso # (Auto) 0.0 11/04/18 09:07: Sodium 133 L, Potassium 3.9, Chloride 101, Carbon Dioxide 20 L D , Anion Gap 15.9 H, BUN 6 L D, Creatinine 0.69, Estimated Creat Clear 156, Estimated GFR 102, Est GFR ( Amer) 123, Glucose 340 H, Calcium 7.8 L, Total Bilirubin 0.3, AST 10 L, ALT 17, Alkaline Phosphatase 135 H, Total Protein 7.0, Albumin 3.0 L D, Globulin 4.0 H, Albumin/Globulin Ratio 0.8 L 11/04/18 11:09: POC Glucose 350 H* I & O for Last 24 hours: Intake & Output 11/02/18 11/03/18 11/04/18 11/05/18 11:59 11:59 11:59 11:59 Intake Total 3812 / 3812 480 / 480 Balance 3812 / 3812 480 / 480 Weight 177 lb 7 oz Narrative: Patient this morning on rounds was awake, responsive, had been to the bathroom by herself without orthostatic symptoms. Did complain of watery stools that she said it started 3 days ago. Lungs were clear, oropharynx dry but clear, no JVD. Heart rate regular without murmurs. Previously noted eye abnormalities are unchanged. Abdomen soft, minimal tenderness in the left lower quadrant but no rebound or guarding. No masses or CVA tenderness. No edema, clubbing or cyanosis in her extremities. Other than her previously noted eye abnormalities no cranial nerve deficits, moves all arms and legs well. Assessment and Plan (1) DKA (diabetic ketoacidoses) Current visit: Yes Status: Acute Qualifiers: Diabetes mellitus type: type 1 Diabetes mellitus complication detail: without coma Qualified Code(s): E10.10 - Type 1 diabetes mellitus with ketoacidosis without coma Category: Medical Code(s): E13.10 - Other specified diabetes mellitus with ketoacidosis without coma Patient slightly acidotic with small ketones. We will hold off on insulin drip at this point. Hydrate, labs this morning have improved. (2) Dehydration Current visit: Yes Status: Acute Category: Medical Code(s): E86.0 - Dehydration (3) Hyperglycemia due to type 1 diabetes mellitus Current visit: Yes Status: Acute Category: Medical Code(s): E10.65 - Type 1 diabetes mellitus with hyperglycemia Hydration and close glucose monitoring as noted. Watch labs again tomorrow morning. (4) Diarrhea Current visit: No Status: Acute Qualifiers: Qualified Code(s): R19.7 - Diarrhea, unspecified Category: Medical Code(s): R19.7 - Diarrhea, unspecified Check stool PCR.
[2018-11-05 06:26] LABS: Basophils % 0.6 % (0.1-2.0); Eosinophils # 0.1 K/mm3 (0.0-0.4); Eosinophils % 1.6 % (0.1-12.0); Hematocrit 29.6 % (37.0-47.0); Hemoglobin 9.7 g/dL (12.2-16.2); Lymphocytes # 1.4 K/mm3 (0.7-4.5); Lymphocytes % 31.2 % (10-50); Mean Corpuscular HGB Conc 32.7 g/dL (31.8-35.4); Mean Corpuscular Hemoglobin 25.3 pg (27.0-31.2); Mean Corpuscular Volume 77.4 fl (81-99); Mean Platelet Volume 8.2 fl (7.4-10.4); Monocytes # 0.2 K/mm3 (0.1-1.0); Monocytes % 5.1 % (1.7-9.3); Neutrophils # 2.8 K/mm3 (1.8-7.8); Neutrophils % 61.4 % (37.0-80.0); Platelet Count 211 K/mm3 (142-424); Red Blood Count 3.83 M/mm3 (4.20-5.40); Red Cell Distribution Width 15.8 % (11.5-17.5); White Blood Count 4.6 K/mm3 (4.8-10.8)
[2018-11-05 06:32] LABS: Alanine Aminotransferase 15 U/L (12-78); Albumin Level 2.6 gm/dL (3.4-5.0); Albumin/Globulin Ratio 0.7 (1.1-1.8); Alkaline Phosphatase 123 U/L (46-116); Anion Gap 11.4 mEq/L (5-15); Aspartate Amino Transferase 8 U/L (15-37); Bilirubin,Total 0.2 mg/dL (0.2-1.0); Blood Urea Nitrogen 9 mg/dL (7-18); Calcium 7.5 mg/dL (8.5-10.1); Carbon Dioxide 26 mmol/L (21.0-32.0); Chloride 105 mmol/L (98-107); Globulin 3.6 gm/dl (1.3-3.2); Glucose 182 mg/dL (74-106); Potassium 3.4 mmoL/L (3.5-5.1); Sodium 139 mmol/L (136-145); Total Protein,Serum 6.2 gm/dL (6.4-8.2)
[2018-11-05 06:41] LABS: Acetone, Serum (Rapid) None Detected (None Detect)
--- NOTE | 2018-11-05 07:18 | Discharge Summary ---
General - General Admission date:: 11/03/18 Discharge date: 11/05/18 HPI HPI: 28-year-old white female with type 1 diabetes, with frequent episodes of DKA and multiple comorbidities of obesity, anxiety, seizure disorder, pseudoseizure disorder and multiple drug allergies. In a long history of medical noncompliance and coming to the ER with DKA. Presented to the emergency department as noted with dehydration, hyperglycemia and small acetone. Admitted to hospital for IV fluids and better insulin administration. Hospital Course Hospital Course: Ms. Bolton was admitted to medicine for management of her DKA and gastroenteritis. She was given basal insulin at time of admission along with IV fluids and IV correction insulin. Was not placed on a drip. Noted to have significant improvement in her glucose and lab work by morning. Her anion gap closed rather quickly. She was continued on sliding scale insulin with increased to 70 units basal insulin second night of admission. Tolerated increased p.o. intake with gradual decrease in her GI symptoms. Had intermittent nausea and loose stools during admission but interval improvement over admission symptoms. Stool samples were obtained to look for infectious etiology, negative. Had no evidence of a leukocytosis. Did have some noted anemia, likely due to fluid shifts and volume of resuscitation. Patient was hemodynamically stable, tolerating p.o. intake, back to home regimen of insulin. Meeting medical tear for discharge home with plan to follow-up in clinic. Plan to resume 85 units of insulin glargine at night with 40 units for mealtime insulin. Objective Vital signs: Temp Pulse Resp BP Pulse Ox 98.2 F 79 17 110/57 L 98 11/05/18 04:00 11/05/18 04:00 11/05/18 04:00 11/05/18 04:00 11/05/18 04:00 - *Routine HEENT Exam Head: Present: normocephalic, atraumatic Eye: Present: EOMI ENT: Present: mucous membranes moist Comments: Right-sided cataract - *Routine Neck Exam Present: supple. Absent: JVD, lymphadenopathy - *Routine Respiratory Exam Present: CTA bilaterally. Absent: prolonged expiratory phase, wheezes, crackles - *Routine Cardiovascular Exam Present: RRR, Normal S1, Normal S2. Absent: murmur - *Routine Abdominal Exam Present: soft, normoactive bowel sounds - *Routine Rectal Exam Patient deferred: visual exam - *Routine Exam Patient deferred: external exam - *Routine Extremities Exam Absent: cyanosis, clubbing, edema - *Routine Skin Exam Present: intact. Absent: cyanosis, erythema - *Routine Neurological Exam Present: alert, oriented X3. Absent: altered mental status Results Labs on day of discharge: Labs from last 24 hours 11/05/18 11/05/18 11/05/18 06:05 06:05 05:55 WBC 4.6 L RBC 3.83 L Hgb 9.7 L Hct 29.6 L MCV 77.4 L MCH 25.3 L MCHC 32.7 RDW 15.8 Plt Count 211 MPV 8.2 Neut % (Auto) 61.4 Lymph % (Auto) 31.2 [place] % (Auto) 5.1 Eos % (Auto) 1.6 Baso % (Auto) 0.6 Neut # (Auto) 2.8 Lymph # (Auto) 1.4 [place] # (Auto) 0.2 Eos # (Auto) 0.1 Baso # (Auto) 0.0 Sodium 139 Potassium 3.4 L Chloride 105 Carbon Dioxide 26 D Anion Gap 11.4 BUN 9 D Creatinine 0.51 L D Estimated Creat Clear 223 Estimated GFR 145 Est GFR ( Amer) 175 D Glucose 182 H D POC Glucose 186 H Calcium 7.5 L Total Bilirubin 0.2 AST 8 L ALT 15 Alkaline Phosphatase 123 H Total Protein 6.2 L Albumin 2.6 L D Globulin 3.6 H Albumin/Globulin Ratio 0.7 L Stl Aeromonas (PCR) Stl C. cayetanensis PCR Stool Rotavirus (PCR) Stl Adenov F 40/41 PCR Stool Astrovirus (PCR) Stool Campylobacter PCR Stl C.difficile Tox PCR Stool Cryptosporidium PCR Stl E.coli Shiga Tox PCR Stool E coli O157 PCR Stl Enterotoxigenic E PCR Stool EPEC (PCR) Stool EAEC (PCR) Stl E. histolytica PCR Stool Giardia Lamblia PCR Stool Salmonella PCR Stool Sapovirus (PCR) Stl P. shigelloides PCR Stl Shigella/EIEC PCR St Y.enterocolitica PCR Stool Vibrio (PCR) Stl Vibrio cholerae PCR Stl Norovirus GI/GII PCR Acetone Level None detected 11/04/18 11/04/18 11/04/18 20:40 16:24 12:45 WBC RBC Hgb Hct MCV MCH MCHC RDW Plt Count MPV Neut % (Auto) Lymph % (Auto) [place] % (Auto) Eos % (Auto) Baso % (Auto) Neut # (Auto) Lymph # (Auto) [place] # (Auto) Eos # (Auto) Baso # (Auto) Sodium Potassium Chloride Carbon Dioxide Anion Gap BUN Creatinine Estimated Creat Clear Estimated GFR Est GFR ( Amer) Glucose POC Glucose 285 H 281 H Calcium Total Bilirubin AST ALT Alkaline Phosphatase Total Protein Albumin Globulin Albumin/Globulin Ratio Stl Aeromonas (PCR) Not detected Stl C. cayetanensis PCR Not detected Stool Rotavirus (PCR) Not detected Stl Adenov F 40/41 PCR Not detected Stool Astrovirus (PCR) Not detected Stool Campylobacter PCR Not detected Stl C.difficile Tox PCR Not detected Stool Cryptosporidium PCR Not detected Stl E.coli Shiga Tox PCR Not detected Stool E coli O157 PCR Not detected Stl Enterotoxigenic E PCR Not detected Stool EPEC (PCR) Not detected Stool EAEC (PCR) Not detected Stl E. histolytica PCR Not detected Stool Giardia Lamblia PCR Not detected Stool Salmonella PCR Not detected Stool Sapovirus (PCR) Not detected Stl P. shigelloides PCR Not detected Stl Shigella/EIEC PCR Not detected St Y.enterocolitica PCR Not detected Stool Vibrio (PCR) Not detected Stl Vibrio cholerae PCR Not detected Stl Norovirus GI/GII PCR Not detected Acetone Level 11/04/18 11/04/18 11/04/18 11:09 09:07 09:07 WBC 4.7 L D RBC 4.29 Hgb 10.7 L D Hct 33.6 L MCV 78.2 L MCH 24.7 L MCHC 31.6 L RDW 15.6 Plt Count 239 MPV 8.7 Neut % (Auto) 66.4 Lymph % (Auto) 26.4 [place] % (Auto) 4.9 Eos % (Auto) 1.4 Baso % (Auto) 0.9 Neut # (Auto) 3.1 Lymph # (Auto) 1.2 [place] # (Auto) 0.2 Eos # (Auto) 0.1 Baso # (Auto) 0.0 Sodium 133 L Potassium 3.9 Chloride 101 Carbon Dioxide 20 L D Anion Gap 15.9 H BUN 6 L D Creatinine 0.69 Estimated Creat Clear 156 Estimated GFR 102 Est GFR ( Amer) 123 Glucose 340 H POC Glucose 350 H* Calcium 7.8 L Total Bilirubin 0.3 AST 10 L ALT 17 Alkaline Phosphatase 135 H Total Protein 7.0 Albumin 3.0 L D Globulin 4.0 H Albumin/Globulin Ratio 0.8 L Stl Aeromonas (PCR) Stl C. cayetanensis PCR Stool Rotavirus (PCR) Stl Adenov F 40/41 PCR Stool Astrovirus (PCR) Stool Campylobacter PCR Stl C.difficile Tox PCR Stool Cryptosporidium PCR Stl E.coli Shiga Tox PCR Stool E coli O157 PCR Stl Enterotoxigenic E PCR Stool EPEC (PCR) Stool EAEC (PCR) Stl E. histolytica PCR Stool Giardia Lamblia PCR Stool Salmonella PCR Stool Sapovirus (PCR) Stl P. shigelloides PCR Stl Shigella/EIEC PCR St Y.enterocolitica PCR Stool Vibrio (PCR) Stl Vibrio cholerae PCR Stl Norovirus GI/GII PCR Acetone Level DS: Diagnosis - Discharge Diagnosis (1) DKA (diabetic ketoacidoses) Status: Resolved (2) Dehydration Status: Resolved (3) Hyperglycemia due to type 1 diabetes mellitus Status: Chronic (4) Diarrhea Status: Acute (5) Pancytopenia Status: Acute Problem details: . Have anemia, low white count, and low normal platelets. Likely due to delusional effect from large volume resuscitation during admission. Asymptomatic Discharge Plan - Patient Discharge Instructions ACTIVITY: Continue current activity DIET: continue same diet - Follow up Plan Follow up with: Srini Ayala MD [Primary Care Provider] - 1 week Disposition: Home, Self-Intermediate Medications: Home Medications Medication Instructions Recorded Confirmed Type Venlafaxine HCl [Effexor 37.5mg 37.5 mg PO DAILY 04/05/18 11/03/18 History tablet] Baclofen [Lioresal 10mg tablet] 10 mg PO BIDP PRN 08/10/18 11/04/18 History Insulin Glargine,Hum.rec.anlog 80 unit SQ HS 11/03/18 11/03/18 History [Basaglar Kwikpen U-100] Lacosamide [Vimpat] 200 mg PO TID 11/03/18 11/03/18 History Melatonin 10 mg PO HS 11/03/18 11/03/18 History OXcarbazepine [Trileptal 300mg 1,200 mg PO BID 11/03/18 11/03/18 History tablet] Gabapentin [Gabapentin 100mg Cap] 100 mg PO TID 11/04/18 11/04/18 History Insulin Lispro [Humalog Kwikpen See Rx Instructions SUB-Q AC 11/04/18 11/04/18 History U-100] Prescriptions/Medication Reconciliation: Continue levetiracetam 500 mg tablet 2,500 mg PO BID #60 tab Baclofen [Lioresal 10mg tablet] 10 mg PO BIDP PRN PRN Reason: MUSCLE SPASMS Apixaban [Eliquis] 5 mg PO BID #60 tab Lacosamide [Vimpat] 200 mg PO TID OXcarbazepine [Trileptal 300mg tablet] 1,200 mg PO BID Venlafaxine HCl [Effexor 37.5mg tablet] 37.5 mg PO DAILY Melatonin 10 mg PO HS Gabapentin [Gabapentin 100mg Cap] 100 mg PO TID Insulin Lispro [Humalog Kwikpen U-100] See Rx Instructions SUB-Q AC #0 Changed Insulin Glargine,Hum.rec.anlog [Basaglar Kwikpen U-100] 85 unit SQ HS #0
[2018-11-05 08:12] VITALS: BP 100/61
== END 2018-11-05 11:05 | disposition home or self-care (01) ==
LOC: ER 14:41 → 2ND 14:41
PROVIDERS: ADMIT Family Medicine; ATTEND Internal Medicine Adolescent Medicine

== ENCOUNTER 2018-12-05 18:29 | Observation (INO) ==
--- NOTE | 2018-12-05 19:24 | Emergency Department Note ---
ED Disposition Clinical Impression: Diabetes mellitus, Acidosis due to type 1 diabetes mellitus, Volume depletion Disposition: Admitted as Observation Condition on Discharge: Fair Referrals: Provider,Rocky, [Primary Care Provider] - Time of Disposition: 20:27 - Critical Care Critical Care Time: No Attestation: On 12/05/18, the high probability of a clinically significant, sudden or life threatening deterioration of the following system(s) required my full and direct attention, intervention and personal management. The time I documented below is in addition to time spent performing reported procedures but includes the following listed in this critical care notation. Medical Decision Making - Medical Records Medical records reviewed: Yes: I reviewed the patient's medical records. - Jamari Inquiry Pt receiving controlled substance: No Jamari was queried for this patient: No Vital Signs: 12/05/18 18:31 Temperature 97.7 F Temperature Source Oral Pulse Rate [Left Radial] 113 H Respiratory Rate 26 H Blood Pressure [Left Arm] 136/75 Blood Pressure Mean [Left Arm] 95 Blood Pressure Source [Left Arm] Automatic Cuff Blood Pressure Position [Left Arm] Sitting 02 Sat by Pulse Oximetry 98 Oxygen Delivery Method Room Air - Lab Data Lab Results 12/05/18 19:05: WBC 13.2 H, RBC 5.04, Hgb 12.4, Hct 40.8, MCV 80.9 L, MCH 24.5 L , MCHC 30.3 L, RDW 15.9, Plt Count 398, MPV 8.5, Neut % (Auto) 81.1 H, Lymph % (Auto) 15.7, [place] % (Auto) 2.5, Eos % (Auto) 0.3, Baso % (Auto) 0.5, Neut # (Auto) 10.7 H, Lymph # (Auto) 2.1, [place] # (Auto) 0.3, Eos # (Auto) 0.0, Baso # (Auto) 0.1 12/05/18 19:05: Sodium 130 L, Potassium 4.3, Chloride 93 L, Carbon Dioxide 12 L, Anion Gap 29.3 H, BUN 16, Creatinine 1.07 H, Estimated Creat Clear 101, Estimated GFR 62, Est GFR ( Amer) 74, Glucose 556 H*, Calcium 9.4, Total Bilirubin 0.5, AST 14 L, ALT 19, Alkaline Phosphatase 172 H, C-Reactive Protein 0.6, Total Protein 8.7 H, Albumin 3.9, Globulin 4.8 H, Albumin/Globulin Ratio 0.8 L, Amylase 51 12/05/18 19:05: ESR 38 H 12/05/18 19:05: Lipase 222, Acetone Level Moderate 12/05/18 19:05: HCG, Quant 0 12/05/18 19:30: Urine Color Yellow, Urine Appearance Clear, Urine pH 5.5, Ur Sp ecific [place] 1.020, Urine Protein Negative, Urine Glucose (UA) 3+, Urine Ketones 3+, Urine Blood Negative, Urine Nitrate Negative, Urine Bilirubin Negative, Urine Urobilinogen 0.2, Ur Leukocyte Esterase Negative 12/05/18 19:30: Urine HCG, Qual Negative 12/05/18 19:46: VBG pH 7.21 L, VBG pCO2 25.3 L, VBG pO2 155.6 H, VBG HCO3 10.0 L , VBG Total CO2 10.8 L, VBG O2 Saturation 98.8 H, VBG Base Excess -17.8 L Result diagrams: 12/05/18 19:05 12/05/18 19:05 Orders (Tests/Meds): ED MEDICATIONS Generic Name Dose Route Start Last Admin Trade Name Freq PRN Reason Stop Dose Admin Sodium Chloride 1,000 mls @ 999 mls/hr 12/05/18 19:30 12/05/18 19:24 Sod Chlor 0.9% 1000ml Bag IV 12/05/18 20:30 999 mls/hr .Q1H1M DALIA Administration Sodium Chloride 1,000 mls @ 999 mls/hr 12/05/18 19:30 Sod Chlor 0.9% 1000ml Bag IV 12/05/18 20:30 .Q1H1M DALIA Sodium Chloride 10 ml 12/05/18 19:18 Saline Flush 10ml Syringe IV 01/04/19 19:17 NEEDED PRN Maintain IV Site Discontinued Medications Generic Name Dose Route Start Last Admin Trade Name Freq PRN Reason Stop Dose Admin Insulin Human Regular 10 unit 12/05/18 19:58 12/05/18 20:03 Humulin R Insulin 100 Units/Ml 10ml Vial IVP 12/05/18 19:59 10 unit ONCE ONE Administration Ondansetron HCl 4 mg 12/05/18 19:23 12/05/18 19:25 Zofran 4mg/2ml Vial IV 12/05/18 19:24 4 mg ONCE ONE Administration ORDERS Category Date Time Status Serum [HCG Qualitative, Serum] Stat Lab 12/05/18 20:06 Ordered Urinalysis and Microscopic Stat Lab 12/05/18 19:30 Ordered Venous Blood Gas Stat RT 12/05/18 19:21 Ordered General Adult HPI - General Chief complaint: Shortness of Breath/Dyspnea Stated complaint: SOA, nauseated Time Seen by Provider: 12/05/18 18:50 Mode of Arrival: EMS Limitations: No Limitations Description of Symptoms (Recalled from ER Triage Doc. by RN): Pt states that she has 5 blood clots in bilateral lungs and she is a diabetic type 1. Pt states that she started feeling bad earlier today, SOA, nausea/vomiting, pain all over. - History of Present Illness HPI narrative: severe nausea/vomiting today. "I'm in dka I think". History of multiple hospitalizations, has R port access secondary to complex medical history and poor peripheral access. - Related Data Home Medications Medication Instructions Recorded Confirmed Venlafaxine HCl [Effexor 37.5mg 37.5 mg PO DAILY 04/05/18 12/05/18 tablet] Lacosamide [Vimpat] 200 mg PO TID 11/03/18 12/05/18 Melatonin 10 mg PO HS 11/03/18 12/05/18 OXcarbazepine [Trileptal 300mg 1,200 mg PO BID 11/03/18 12/05/18 tablet] Gabapentin [Gabapentin 100mg Cap] 100 mg PO TID 11/04/18 12/05/18 Methocarbamol [Methocarbamol 500mg 500 mg PO BID PRN 11/09/18 12/05/18 Tablet] Previous Rx's Medication Instructions Recorded levetiracetam 500 mg tablet 2,500 mg PO BID #60 tab 08/24/18 Apixaban [Eliquis] 5 mg PO BID #60 tab 09/10/18 Insulin Glargine,Hum.rec.anlog 85 unit SQ HS #0 11/05/18 [Basaglar Kwikpen U-100] Insulin Lispro [Humalog Kwikpen See Rx Instructions SUB-Q AC #0 11/05/18 U-100] Allergies Allergy/AdvReac Type Severity Reaction Status Date / Time buspirone [BUSPIRONE] Allergy Unknown Verified 12/05/18 19:10 nitrofurantoin Allergy Unknown Verified 12/05/18 19:10 [NITROFURANTOIN] sulfamethoxazole Allergy Unknown Verified 12/05/18 19:10 [From BACTRIM] topiramate [From TOPAMAX] Allergy Unknown Verified 12/05/18 19:10 trimethoprim [From BACTRIM] Allergy Unknown Verified 12/05/18 19:10 adhesive tape AdvReac Intermediate SKIN Verified 12/05/18 19:10 IRRITATION [facility] History - Hepatitis A Screen Drug use history?: No High risk sexual behaviors?: Yes History of sexually transmitted infection?: Yes Currently employed?: No Childcare worker?: No Do you have indoor plumbing?: Yes Do you have electricity?: Yes Attestation statement:: This patient has been screened for Hepatitis A risk factors. I have reviewed the patient's past medical history: Yes Medical History: Reports:: Arrhythmia, Deep Vein Thrombosis, Depression, Diabetes Mellitus Type 1, Palpitations, Pulmonary Embolism, Seizures Denies:: Cancer, Diabetes Mellitus Type 2, MRSA Other Medical History: Reports: Anemia, Other. Denies: Blood Transfusion Carissa ction Other Surgeries: Yes: Appendectomy, Cholecystectomy, Dilation and Curettage, Hysterectomy-Partial ("everything but left ovary"), Tubal Ligation, Other Amputation: No Fractures: No Comment: Ablation 10/30/2016 - Social History Smoking Status: Former smoker Tobacco Type: cigarettes # Packs/Day (cigarettes): 1 #Yrs smoked (if former smoker): 4 Alcohol Intake: former Alcohol Intake Frequency:: holidays/special occasions only Substance Use Type: former substance user Occupational Status: disabled Housing: house Household Members: family Comment: Marked medical noncompliance - Psychiatric History Expresses thoughts of harming self/others: None Suicide Plan Description: No Plan Pschychiatric History:: Reports:: Depression Family Hx:: Diabetes, Hypertension, Coronary Artery Disease ROS Obtained: Yes All systems reviewed & no additional complaints - Constitutional Constitutional: Reports system reviewed and no additional complaints, except as docu, Reports chills, Reports lethargy, Reports malaise - Eyes Eyes: Reports system reviewed and no additional complaints, except as docu, D enies change in vision - ENT Ears, Nose, Mouth, and Throat: Reports system reviewed and no additional complaints, except as docu, Denies sinus pressure, Denies sore throat, Denies throat swelling - Cardiovascular Cardiovascular: Reports system reviewed and no additional complaints, except as docu, Denies chest pain, Denies chest pain at rest, Denies chest pain with activity, Denies dyspnea - Respiratory Respiratory: Yes system reviewed and no additional complaints, except as docu - Gastrointestinal Gastrointestingal: Reports: system reviewed and no additional complaints, except as docu, nausea, vomiting. Denies: diarrhea - Genitourinary Female Genitourinary: Reports system reviewed and no additional complaints, except as docu, Denies dysuria, Denies flank pain - Musculoskeletal Musculoskeletal: Reports system reviewed and no additional complaints, except as docu, Denies decreased muscle mass, Denies joint swelling, Denies stiffness - Integumentary/Breasts Skin/Breast: Denies rash - Neurologic Neurologic: Reports system reviewed and no additional complaints, except as doc u, Denies dizziness, Denies syncope, Denies weakness - Endocrine Endocrine: Reports system reviewed and no additional complaints, except as docu, Denies palpitations - Hematologic/Lymphatic Henatologic/Lymphatic: Denies easy bleeding, Denies easy bruising, Denies lymphadenopathy Physical Exam - General General appearance: alert, anxious, in distress - Head Head exam: atraumatic - Eye Eye exam: Present: normal appearance, PERRL, EOMI - ENT ENT exam: Present: normal exam, normal oropharynx, other (smells of ketones) - Neck Neck exam: Present: normal inspection, full ROM, trachea midline - Chest Chest inspection: Present: normal inspection, symmetric chest wall rise. Absent: tenderness - Respiratory Respiratory exam: Present: normal lung sounds bilaterally. Absent: respiratory distress - Cardiovascular Cardiovascular exam: Present: normal rhythm, tachycardia, normal heart sounds. Absent: regular rate, JVD - Abdominal Exam Abdominal exam: Present: soft. Absent: distention, tenderness, guarding, rebound, rigidity - Extremities Exam Extremities exam: Present: normal inspection, full ROM, normal capillary refill. Absent: calf tenderness - Back Exam Back exam: Present: normal inspection. Absent: tenderness - Neurological Exam Neurological exam: Present: alert, oriented X3, CN II-XII intact, normal gait - Psychiatric Psychiatric exam: Present: normal affect, depressed, agitated. Absent: normal mood - Skin Skin exam: Present: warm, dry, intact
[2018-12-05 19:35] LABS: Basophils # 0.1 K/mm3 (0-0.2); Basophils % 0.5 % (0.1-2.0); Eosinophils % 0.3 % (0.1-12.0); Hematocrit 40.8 % (37.0-47.0); Hemoglobin 12.4 g/dL (12.2-16.2); Lymphocytes # 2.1 K/mm3 (0.7-4.5); Lymphocytes % 15.7 % (10-50); Mean Corpuscular HGB Conc 30.3 g/dL (31.8-35.4); Mean Corpuscular Hemoglobin 24.5 pg (27.0-31.2); Mean Corpuscular Volume 80.9 fl (81-99); Mean Platelet Volume 8.5 fl (7.4-10.4); Monocytes # 0.3 K/mm3 (0.1-1.0); Monocytes % 2.5 % (1.7-9.3); Neutrophils # 10.7 K/mm3 (1.8-7.8); Neutrophils % 81.1 % (37.0-80.0); Platelet Count 398 K/mm3 (142-424); Red Blood Count 5.04 M/mm3 (4.20-5.40); Red Cell Distribution Width 15.9 % (11.5-17.5); White Blood Count 13.2 K/mm3 (4.8-10.8)
[2018-12-05 19:36] LABS: Microscopic, Urine URINE MICROSCOPIC (MICROSCOPIC)
[2018-12-05 19:38] LABS: Appearance,Urine CLEAR (Clear); Bilirubin,Urine Negative (Negative); Blood, Urine Negative (Negative); Color,Urine YELLOW (Yellow); Glucose,Urine (UA) 3+ (Negative); Ketones,Urine 3+ (Negative); Leukocyte Esterase,Urine Negative (Negative); PH,Urine 5.5 (5.0-8.5); Protein,Urine Negative (Negative); Urobilinogen,Urine 0.2 EU/dl (0.2)
[2018-12-05 19:43] LABS: Lipase 222 u/L (73-393)
[2018-12-05 19:50] LABS: VBG Base Excess -17.8 mmol/L (-2.4-2.3); VBG Oxygen Saturation 98.8 % (50-70); VBG PCO2 25.3 mmol/L (35-51); VBG PH 7.21 mmol/L (7.31-7.41); VBG PO2 155.6 mmol/L (28-40); VBG Total CO2 10.8 mmol/L (23-27)
[2018-12-05 19:52] LABS: Acetone, Serum (Rapid) Moderate (None Detect)
[2018-12-05 19:54] LABS: Albumin Level 3.9 gm/dL (3.4-5.0); Albumin/Globulin Ratio 0.8 (1.1-1.8); Anion Gap 29.3 mEq/L (5-15); Bilirubin,Total 0.5 mg/dL (0.2-1.0); C-Reactive Protein 0.6 mg/L (0.0-0.9); Calcium 9.4 mg/dL (8.5-10.1); Globulin 4.8 gm/dl (1.3-3.2); Potassium 4.3 mmoL/L (3.5-5.1); Total Protein,Serum 8.7 gm/dL (6.4-8.2)
[2018-12-05 20:30] LABS: Bacteria,Urine Trace /lpf; RBC,Urine Occasional #/hpf (0-3); WBC,Urine Occasional #/hpf (0-3)
[2018-12-06 01:50] LABS: Anion Gap 15.1 mEq/L (5-15); Potassium 4.1 mmoL/L (3.5-5.1)
[2018-12-06 02:07] LABS: Calcium 7.9 mg/dL (8.5-10.1)
[2018-12-06 06:18] LABS: Anion Gap 13.6 mEq/L (5-15); Calcium 7.8 mg/dL (8.5-10.1); Potassium 3.6 mmoL/L (3.5-5.1)
--- NOTE | 2018-12-06 07:57 | Pharmacy Consult Notes ---
[facility] Pharmacy VTE Monitoring - Patient Demographics Admission date: 12/06/18 Report Date: 12/06/18 Time: 07:57 Allergies/Adverse Reactions: Patient Allergies buspirone [BUSPIRONE] Allergy (Unknown, Verified 12/05/18 22:17) nitrofurantoin [NITROFURANTOIN] Allergy (Unknown, Verified 12/05/18 22:17) sulfamethoxazole [From BACTRIM] Allergy (Unknown, Verified 12/05/18 22:17) topiramate [From TOPAMAX] Allergy (Unknown, Verified 12/05/18 22:17) trimethoprim [From BACTRIM] Allergy (Unknown, Verified 12/05/18 22:17) adhesive tape Adverse Reaction (Intermediate, Verified 12/05/18 22:17) SKIN IRRITATION Height: 1.6 m Weight: 81.675 kg Patient Problems: Current Active Problems Diabetes mellitus (Acute) Acidosis due to type 1 diabetes mellitus (Acute) Volume depletion (Acute) - VTE Risk Labs: VTE Related Lab Results Hgb 12.4 g/dL (12.2-16.2) 12/05/18 19:05 Hct 40.8 % (37.0-47.0) 12/05/18 19:05 Plt Count 398 K/mm3 (142-424) 12/05/18 19:05 BUN 9 mg/dL (7-18) 12/06/18 05:40 Creatinine 0.68 mg/dL (0.55-1.02) 12/06/18 05:40 Estimated Creat Clear 160 mL/min (50-200) 12/06/18 05:40 Was VTE Risk Assessment Performed: Yes VTE Score: 3 VTE Risk Level: Low Risk Clinical Trial Participant: No - Prophylaxis VTE Prophylaxis Ordered?: Yes Types of VTE Prophylaxis: TEDS Knee High
--- NOTE | 2018-12-06 09:10 | H&P/Discharge Summary ---
General - General Admission date:: 12/05/18 Discharge date: 12/06/18 *Admission Date: 12/06/18 *Chief complaint: Nausea and vomiting *History of present illness: Homa is a 28-year-old female with a long history of poorly controlled diabetes, last A1c 11.6 in August 2018. She presents with 1 day of nausea, vomiting, poor p.o. intake. Reports her blood sugars have been consistently in the 2-300s. Presented to the ER with nausea and vomiting and found to be in DKA with anion gap of 29 and bicarb of approximately 12. Initiated on DKA protocol and admitted to floor for further management. Of note patient missed last follow-up appointment with us in primary care clinic and has to our knowledge been doing okay on current regimen. Currently takes 85 unit long-acting insulin at night and 40 units 3 times daily meals. Denies having any seizures in many months. Was otherwise feeling well with no recent URI symptoms, fevers, urinary symptoms. Beta hCG checked on admission and found to be negative. [facility] History I have reviewed the patient's past medical history: Yes Medical History: Reports:: Arrhythmia, Deep Vein Thrombosis, Depression, Diabetes Mellitus Type 1, MRSA, Palpitations, Pulmonary Embolism, Seizures Denies:: Cancer, Diabetes Mellitus Type 2 Have you ever received a pneumonia vaccine?: Yes Have you received a flu vaccine this season?: Yes Other Medical History: Reports: Anemia, Other. Denies: Blood Transfusion Reaction Other Surgeries: Yes: Appendectomy, Cholecystectomy, Dilation and Curettage, Hysterectomy-Partial ("everything but left ovary"), Tubal Ligation, Other (ablation) Amputation: No Fractures: No - *Social History Educational Level: Completed High School Smoking Status: Former smoker Tobacco Type: cigarettes # Packs/Day (cigarettes): 1 #Yrs smoked (if former smoker): 4 Alcohol Intake: never Alcohol Intake Frequency:: holidays/special occasions only Substance Use Type: former substance user Occupational Status: disabled Housing: apartment Household Members: none Travel in the last 8 weeks: None - Psychiatric History Expresses thoughts of harming self/others: None Suicide Plan Description: No Plan Pschychiatric History:: Reports:: Depression *Family Hx:: Anemia, Asthma, Cancer, Diabetes, Heart Attack, Hyperlipidemia, Hypertension, Kidney Disease, Stroke, Thyroid Disorder Review of Systems - Review of Systems Review of systems:: pertinent systems reviewed and negative unless documented below - *Neurologic Denies dizziness, Denies fainting, Denies weakness Exam Vital signs and Labs for Last 24 Hours: Temp Pulse Resp BP Pulse Ox 98.1 F 88 13 104/48 L 97 12/06/18 08:00 12/06/18 08:00 12/06/18 08:00 12/06/18 08:00 12/06/18 08:00 Laboratory Results - last 24 hr 12/05/18 19:05: WBC 13.2 H, RBC 5.04, Hgb 12.4, Hct 40.8, MCV 80.9 L, MCH 24.5 L , MCHC 30.3 L, RDW 15.9, Plt Count 398, MPV 8.5, Neut % (Auto) 81.1 H, Lymph % (Auto) 15.7, [place] % (Auto) 2.5, Eos % (Auto) 0.3, Baso % (Auto) 0.5, Neut # (Auto) 10.7 H, Lymph # (Auto) 2.1, [place] # (Auto) 0.3, Eos # (Auto) 0.0, Baso # (Auto) 0.1 12/05/18 19:05: Sodium 130 L, Potassium 4.3, Chloride 93 L, Carbon Dioxide 12 L, Anion Gap 29.3 H, BUN 16, Creatinine 1.07 H, Estimated Creat Clear 101, Estimated GFR 62, Est GFR ( Amer) 74, Glucose 556 H*, Calcium 9.4, Total Bilirubin 0.5, AST 14 L, ALT 19, Alkaline Phosphatase 172 H, C-Reactive Protein 0.6, Total Protein 8.7 H, Albumin 3.9, Globulin 4.8 H, Albumin/Globulin Ratio 0.8 L, Amylase 51 12/05/18 19:05: ESR 38 H 12/05/18 19:05: Lipase 222, Acetone Level Moderate 12/05/18 19:05: HCG, Quant 0 12/05/18 19:30: Urine Color Yellow, Urine Appearance Clear, Urine pH 5.5, Ur Specific [place] 1.020, Urine Protein Negative, Urine Glucose (UA) 3+, Urine Ketones 3+, Urine Blood Negative, Urine Nitrate Negative, Urine Bilirubin Negative, Urine Urobilinogen 0.2, Ur Leukocyte Esterase Negative, Urine RBC Occasional, Urine WBC Occasional, Ur Squamous Epith Cells 5-10, Urine Bacteria Trace 12/05/18 19:30: Urine HCG, Qual Negative 12/05/18 19:46: VBG pH 7.21 L, VBG pCO2 25.3 L, VBG pO2 155.6 H, VBG HCO3 10.0 L , VBG Total CO2 10.8 L, VBG O2 Saturation 98.8 H, VBG Base Excess -17.8 L 12/05/18 20:30: POC Glucose 444 H* 12/05/18 21:34: POC Glucose 311 H* 12/05/18 22:35: POC Glucose 319 H* 12/05/18 23:42: POC Glucose 244 H 12/06/18 00:52: POC Glucose 182 H 12/06/18 01:30: Sodium 131 L, Potassium 4.1, Chloride 102, Carbon Dioxide 18 L D , Anion Gap 15.1 H, BUN 12, Creatinine 0.82 D, Estimated Creat Clear 133, Estimated GFR 84, Est GFR ( Amer) 101 D, Glucose 192 H D, Calcium 7.9 L D 12/06/18 03:06: POC Glucose 198 H 12/06/18 04:09: POC Glucose 196 H 12/06/18 05:40: Sodium 135 L, Potassium 3.6, Chloride 105, Carbon Dioxide 20 L, Anion Gap 13.6, BUN 9, Creatinine 0.68, Estimated Creat Clear 160, Estimated GFR 104, Est GFR ( Amer) 126 D, Glucose 145 H D, Calcium 7.8 L 12/06/18 05:40: Hemoglobin A1c 11.3 H 12/06/18 05:45: Acetone Level None detected 12/06/18 06:14: POC Glucose 119 H I & O for Last 24 hours: Intake & Output 12/03/18 12/04/18 12/05/18 12/06/18 23:59 23:59 23:59 23:59 Intake Total 2500 / 2500 1140 / 1140 Output Total 300 / 300 300 / 300 Balance 2200 / 2200 840 / 840 Weight 81.675 kg 81.675 kg Narrative: Ill-appearing obese female in no acute distress 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 Heart regular, no murmurs rubs or gallops No lower extremity edema, moves all extremities equally, pulses 2+ throughout. Pleasant mood and affect Hospital Course Hospital Course: Upon admission, initiated patient's basal insulin dose. Placed on insulin drip due to severity of anion gap. Monitored electrolytes throughout the course of the night with titration of drip per protocol and initiation of IV fluids per p rotocol including use of fluids containing potassium. Gap closed by morning. Patient tolerated partial breakfast and full lunch. Transition to regular regimen of 85 units long-acting at night and the units with meals. Medically stable with normal vitals meeting criteria for discharge home. Plan to follow- up later this week. Initiated on omeprazole for gastritis symptoms due to vomiting. Discharged with some Zofran for nausea Results Labs on day of discharge: Labs from last 24 hours 12/06/18 12/06/18 12/06/18 06:14 05:45 05:40 WBC RBC Hgb Hct MCV MCH MCHC RDW Plt Count MPV Neut % (Auto) Lymph % (Auto) [place] % (Auto) Eos % (Auto) Baso % (Auto) Neut # (Auto) Lymph # (Auto) [place] # (Auto) Eos # (Auto) Baso # (Auto) ESR VBG pH VBG pCO2 VBG pO2 VBG HCO3 VBG Total CO2 VBG O2 Saturation VBG Base Excess Sodium Potassium Chloride Carbon Dioxide Anion Gap BUN Creatinine Estimated Creat Clear Estimated GFR Est GFR ( Amer) Glucose POC Glucose 119 H Hemoglobin A1c 11.3 H Calcium Total Bilirubin AST ALT Alkaline Phosphatase C-Reactive Protein Total Protein Albumin Globulin Albumin/Globulin Ratio Amylase Lipase HCG, Quant Urine Color Urine Appearance Urine pH Ur Specific [place] Urine Protein Urine Glucose (UA) Urine Ketones Urine Blood Urine Nitrate Urine Bilirubin Urine Urobilinogen Ur Leukocyte Esterase Urine RBC Urine WBC Ur Squamous Epith Cells Urine Bacteria Urine HCG, Qual Acetone Level None detected 12/06/18 12/06/18 12/06/18 05:40 04:09 03:06 WBC RBC Hgb Hct MCV MCH MCHC RDW Plt Count MPV Neut % (Auto) Lymph % (Auto) [place] % (Auto) Eos % (Auto) Baso % (Auto) Neut # (Auto) Lymph # (Auto) [place] # (Auto) Eos # (Auto) Baso # (Auto) ESR VBG pH VBG pCO2 VBG pO2 VBG HCO3 VBG Total CO2 VBG O2 Saturation VBG Base Excess Sodium 135 L Potassium 3.6 Chloride 105 Carbon Dioxide 20 L Anion Gap 13.6 BUN 9 Creatinine 0.68 Estimated Creat Clear 160 Estimated GFR 104 Est GFR ( Amer) 126 D Glucose 145 H D POC Glucose 196 H 198 H Hemoglobin A1c Calcium 7.8 L Total Bilirubin AST ALT Alkaline Phosphatase C-Reactive Protein Total Protein Albumin Globulin Albumin/Globulin Ratio Amylase Lipase HCG, Quant Urine Color Urine Appearance Urine pH Ur Specific [place] Urine Protein Urine Glucose (UA) Urine Ketones Urine Blood Urine Nitrate Urine Bilirubin Urine Urobilinogen Ur Leukocyte Esterase Urine RBC Urine WBC Ur Squamous Epith Cells Urine Bacteria Urine HCG, Qual Acetone Level 12/06/18 12/06/18 12/05/18 01:30 00:52 23:42 WBC RBC Hgb Hct MCV MCH MCHC RDW Plt Count MPV Neut % (Auto) Lymph % (Auto) [place] % (Auto) Eos % (Auto) Baso % (Auto) Neut # (Auto) Lymph # (Auto) [place] # (Auto) Eos # (Auto) Baso # (Auto) ESR VBG pH VBG pCO2 VBG pO2 VBG HCO3 VBG Total CO2 VBG O2 Saturation VBG Base Excess Sodium 131 L Potassium 4.1 Chloride 102 Carbon Dioxide 18 L D Anion Gap 15.1 H BUN 12 Creatinine 0.82 D Estimated Creat Clear 133 Estimated GFR 84 Est GFR ( Amer) 101 D Glucose 192 H D POC Glucose 182 H 244 H Hemoglobin A1c Calcium 7.9 L D Total Bilirubin AST ALT Alkaline Phosphatase C-Reactive Protein Total Protein Albumin Globulin Albumin/Globulin Ratio Amylase Lipase HCG, Quant Urine Color Urine Appearance Urine pH Ur Specific [place] Urine Protein Urine Glucose (UA) Urine Ketones Urine Blood Urine Nitrate Urine Bilirubin Urine Urobilinogen Ur Leukocyte Esterase Urine RBC Urine WBC Ur Squamous Epith Cells Urine Bacteria Urine HCG, Qual Acetone Level 12/05/18 12/05/18 12/05/18 22:35 21:34 20:30 WBC RBC Hgb Hct MCV MCH MCHC RDW Plt Count MPV Neut % (Auto) Lymph % (Auto) [place] % (Auto) Eos % (Auto) Baso % (Auto) Neut # (Auto) Lymph # (Auto) [place] # (Auto) Eos # (Auto) Baso # (Auto) ESR VBG pH VBG pCO2 VBG pO2 VBG HCO3 VBG Total CO2 VBG O2 Saturation VBG Base Excess Sodium Potassium Chloride Carbon Dioxide Anion Gap BUN Creatinine Estimated Creat Clear Estimated GFR Est GFR ( Amer) Glucose POC Glucose 319 H* 311 H* 444 H* Hemoglobin A1c Calcium Total Bilirubin AST ALT Alkaline Phosphatase C-Reactive Protein Total Protein Albumin Globulin Albumin/Globulin Ratio Amylase Lipase HCG, Quant Urine Color Urine Appearance Urine pH Ur Specific [place] Urine Protein Urine Glucose (UA) Urine Ketones Urine Blood Urine Nitrate Urine Bilirubin Urine Urobilinogen Ur Leukocyte Esterase Urine RBC Urine WBC Ur Squamous Epith Cells Urine Bacteria Urine HCG, Qual Acetone Level 12/05/18 12/05/18 12/05/18 19:46 19:30 19:30 WBC RBC Hgb Hct MCV MCH MCHC RDW Plt Count MPV Neut % (Auto) Lymph % (Auto) [place] % (Auto) Eos % (Auto) Baso % (Auto) Neut # (Auto) Lymph # (Auto) [place] # (Auto) Eos # (Auto) Baso # (Auto) ESR VBG pH 7.21 L VBG pCO2 25.3 L VBG pO2 155.6 H VBG HCO3 10.0 L VBG Total CO2 10.8 L VBG O2 Saturation 98.8 H VBG Base Excess -17.8 L Sodium Potassium Chloride Carbon Dioxide Anion Gap BUN Creatinine Estimated Creat Clear Estimated GFR Est GFR ( Amer) Glucose POC Glucose Hemoglobin A1c Calcium Total Bilirubin AST ALT Alkaline Phosphatase C-Reactive Protein Total Protein Albumin Globulin Albumin/Globulin Ratio Amylase Lipase HCG, Quant Urine Color Yellow Urine Appearance Clear Urine pH 5.5 Ur Specific [place] 1.020 Urine Protein Negative Urine Glucose (UA) 3+ Urine Ketones 3+ Urine Blood Negative Urine Nitrate Negative Urine Bilirubin Negative Urine Urobilinogen 0.2 Ur Leukocyte Esterase Negative Urine RBC Occasional Urine WBC Occasional Ur Squamous Epith Cells 5-10 Urine Bacteria Trace Urine HCG, Qual Negative Acetone Level 12/05/18 12/05/18 12/05/18 19:05 19:05 19:05 WBC RBC Hgb Hct MCV MCH MCHC RDW Plt Count MPV Neut % (Auto) Lymph % (Auto) [place] % (Auto) Eos % (Auto) Baso % (Auto) Neut # (Auto) Lymph # (Auto) [place] # (Auto) Eos # (Auto) Baso # (Auto) ESR 38 H VBG pH VBG pCO2 VBG pO2 VBG HCO3 VBG Total CO2 VBG O2 Saturation VBG Base Excess Sodium Potassium Chloride Carbon Dioxide Anion Gap BUN Creatinine Estimated Creat Clear Estimated GFR Est GFR ( Amer) Glucose POC Glucose Hemoglobin A1c Calcium Total Bilirubin AST ALT Alkaline Phosphatase C-Reactive Protein Total Protein Albumin Globulin Albumin/Globulin Ratio Amylase Lipase 222 HCG, Quant 0 Urine Color Urine Appearance Urine pH Ur Specific [place] Urine Protein Urine Glucose (UA) Urine Ketones Urine Blood Urine Nitrate Urine Bilirubin Urine Urobilinogen Ur Leukocyte Esterase Urine RBC Urine WBC Ur Squamous Epith Cells Urine Bacteria Urine HCG, Qual Acetone Level Moderate 12/05/18 12/05/18 19:05 19:05 WBC 13.2 H RBC 5.04 Hgb 12.4 Hct 40.8 MCV 80.9 L MCH 24.5 L MCHC 30.3 L RDW 15.9 Plt Count 398 MPV 8.5 Neut % (Auto) 81.1 H Lymph % (Auto) 15.7 [place] % (Auto) 2.5 Eos % (Auto) 0.3 Baso % (Auto) 0.5 Neut # (Auto) 10.7 H Lymph # (Auto) 2.1 [place] # (Auto) 0.3 Eos # (Auto) 0.0 Baso # (Auto) 0.1 ESR VBG pH VBG pCO2 VBG pO2 VBG HCO3 VBG Total CO2 VBG O2 Saturation VBG Base Excess Sodium 130 L Potassium 4.3 Chloride 93 L Carbon Dioxide 12 L Anion Gap 29.3 H BUN 16 Creatinine 1.07 H Estimated Creat Clear 101 Estimated GFR 62 Est GFR ( Amer) 74 Glucose 556 H* POC Glucose Hemoglobin A1c Calcium 9.4 Total Bilirubin 0.5 AST 14 L ALT 19 Alkaline Phosphatase 172 H C-Reactive Protein 0.6 Total Protein 8.7 H Albumin 3.9 Globulin 4.8 H Albumin/Globulin Ratio 0.8 L Amylase 51 Lipase HCG, Quant Urine Color Urine Appearance Urine pH Ur Specific [place] Urine Protein Urine Glucose (UA) Urine Ketones Urine Blood Urine Nitrate Urine Bilirubin Urine Urobilinogen Ur Leukocyte Esterase Urine RBC Urine WBC Ur Squamous Epith Cells Urine Bacteria Urine HCG, Qual Acetone Level DS: Diagnosis - Discharge Diagnosis (1) Acidosis due to type 1 diabetes mellitus Status: Acute (2) Diabetes mellitus Status: Acute (3) Gastroenteritis Status: Acute (4) Hx of absence seizures Status: Acute (5) Dehydration Status: Resolved Discharge Medications - Medications for Discharge Home Medication List at Discharge: New Promethazine HCl [Phenergan 12.5mg tablet] 12.5 mg PO Q8HP PRN #16 tablet PRN Reason: Nausea Omeprazole [Omeprazole 20mg Capsule] 20 mg PO DAILY 30 Days #30 cap Continue levetiracetam 500 mg tablet 2,500 mg PO BID #60 tab Apixaban [Eliquis] 5 mg PO BID #60 tab OXcarbazepine [Trileptal 300mg tablet] 1,200 mg PO BID Insulin Glargine,Hum.rec.anlog [Basaglar Kwikpen U-100] 85 unit SQ HS #0 Methocarbamol [Methocarbamol 500mg Tablet] 500 mg PO BIDP PRN PRN Reason: MUSCLE SPASMS Venlafaxine HCl [Effexor 37.5mg tablet] 37.5 mg PO DAILY Melatonin 10 mg PO HS Gabapentin [Gabapentin 100mg Cap] 100 mg PO TID Insulin Lispro [Humalog Kwikpen U-100] See Rx Instructions SUB-Q AC #0 Baclofen [Lioresal 10mg tablet] 10 mg PO BID Disposition Disposition: Home, Self-Care
[2018-12-06 09:37] LABS: Anion Gap 13.7 mEq/L (5-15); Blood Urea Nitrogen 9 mg/dL (7-18); Calcium 7.9 mg/dL (8.5-10.1); Carbon Dioxide 21 mmol/L (21.0-32.0); Chloride 103 mmol/L (98-107); Glucose 237 mg/dL (74-106); Potassium 3.7 mmoL/L (3.5-5.1); Sodium 134 mmol/L (136-145)
[2018-12-06 09:46] LABS: Acetone, Serum (Rapid) None Detected (None Detect)
[2018-12-06 13:45] LABS: Anion Gap 10.7 mEq/L (5-15); Calcium 8.2 mg/dL (8.5-10.1); Potassium 3.7 mmoL/L (3.5-5.1)
[2018-12-06 15:56] VITALS: BP 102/64
== END 2018-12-06 16:44 | disposition home or self-care (01) ==
LOC: ER 18:29 → ICU 18:29
PROVIDERS: ADMIT Internal Medicine Adolescent Medicine; ATTEND Internal Medicine Adolescent Medicine
CPT/HCPCS: 36415; 80048; 80053; 81001; 81025; 82009; 82150; 82803; 82962; 83036; 83690; 84702; 85025; 85651; 86140; 93005; 96365; 96366; 96375; 99284; G0378; J1642; J2405

== ENCOUNTER 2018-12-21 12:19 | Outpatient (CLI) | payer MEDICAID, SELFPAY | END 2018-12-21 13:15 | disposition home or self-care (01) | LOC: INF 12:22 | PROVIDERS: PCP Internal Medicine Adolescent Medicine; Visit Provider Nurse Practitioner Family | DX: Z45.2 Encounter for adjustment and management of vascular access device (principal) | CPT/HCPCS: 96523; J1642 ==

== ENCOUNTER 2019-02-02 17:12 | Observation (INO) ==
--- NOTE | 2019-02-02 17:27 | Emergency Department Note ---
ED Disposition Clinical Impression: Hyperglycemia due to type 1 diabetes mellitus Disposition: Admitted as Observation Condition on Discharge: Good Instructions: DI for Hyperglycemia -- Adult Referrals: Srini Ayala MD [Primary Care Provider] - Time of Disposition: 18:57 - Critical Care Critical Care Time: No Attestation: On 02/02/19, the high probability of a clinically significant, sudden or life threatening deterioration of the following system(s) required my full and direct attention, intervention and personal management. The time I documented below is in addition to time spent performing reported procedures but includes the following listed in this critical care notation. Medical Decision Making - Medical Records Medical records reviewed: Yes: I reviewed the patient's medical records. - Jamari Inquiry Pt receiving controlled substance: No Jamari was queried for this patient: No Vital Signs: 02/02/19 17:13 02/02/19 18:42 Temperature 98.7 F Temperature Source Oral Pulse Rate [Right Radial] 101 H 83 Respiratory Rate 20 Blood Pressure [Right Arm] 146/77 H 122/89 Blood Pressure Mean [Right Arm] 100 100 Blood Pressure Source [Right Arm] Automatic Cuff Blood Pressure Position [Right Arm] Sitting 02 Sat by Pulse Oximetry 98 92 L Oxygen Delivery Method Room Air - Lab Data Lab results reviewed: Yes: I reviewed the patient's lab results. Lab Results 02/02/19 17:30: Urine Color Straw, Urine Appearance Clear, Urine pH 5.5, Ur Specific [place] <= 1.005, Urine Protein Negative, Urine Glucose (UA) 3+, Urine Ketones 1+, Urine Blood Negative, Urine Nitrate Negative, Urine Bilirubin Negative, Urine Urobilinogen 0.2, Ur Leukocyte Esterase Negative, Urine RBC None, Urine WBC 3-5, Ur Squamous Epith Cells 5-10, Urine Bacteria None 02/02/19 17:38: Specimen Source Right radial, O2 % room air, ABG pH 7.48 H, ABG pCO2 22.8 L, ABG pO2 109.6 H, ABG HCO3 16.6 L, ABG Total CO2 17.3 L, ABG O2 Saturation 98, ABG Base Excess -7.0 L, Agustin Test Acceptable 02/02/19 17:50: WBC 6.7, RBC 4.67, Hgb 12.0 L, Hct 39.2, MCV 83.9, MCH 25.6 L, MCHC 30.6 L, RDW 15.8, Plt Count 257, MPV 9.2, Neut % (Auto) 81.2 H, Lymph % (Auto) 14.4, [place] % (Auto) 3.1, Eos % (Auto) 0.7, Baso % (Auto) 0.6, Neut # (Auto) 5.4, Lymph # (Auto) 1.0, [place] # (Auto) 0.2, Eos # (Auto) 0.1, Baso # (Auto) 0.0 02/02/19 17:50: Sodium 124 L, Potassium 4.5, Chloride 91 L, Carbon Dioxide 21, Anion Gap 16.5 H, BUN 17, Creatinine 1.18 H, Estimated Creat Clear 92, Estimated GFR 55 L, Est GFR ( Amer) 66, Glucose 744 H*, Calcium 9.1, Total Bilirubin 0.3, AST 7 L, ALT 20, Alkaline Phosphatase 165 H, Total Protein 8.0, Albumin 3.2 L, Globulin 4.8 H, Albumin/Globulin Ratio 0.7 L 02/02/19 17:50: Acetone Level Small Result diagrams: 02/02/19 17:50 02/02/19 17:50 Orders (Tests/Meds): ED MEDICATIONS Generic Name Dose Route Start Last Admin Trade Name Freq PRN Reason Stop Dose Admin Sodium Chloride 1,000 mls @ 999 mls/hr 02/02/19 17:45 02/02/19 18:08 Sod Chlor 0.9% 1000ml Bag IV 02/02/19 18:45 999 mls/hr .Q1H1M DALIA Administration Discontinued Medications Generic Name Dose Route Start Last Admin Trade Name Freq PRN Reason Stop Dose Admin Ketorolac Tromethamine 30 mg 02/02/19 18:42 Toradol 30mg/Ml Vial IV 02/02/19 18:43 ONCE ONE Ondansetron HCl 4 mg 02/02/19 17:40 02/02/19 18:08 Zofran 4mg/2ml Vial IV 02/02/19 17:41 4 mg ONCE ONE Administration ORDERS Category Date Time Status Lactic Acid Stat Lab 02/02/19 17:50 Received - Physician Consults Physician Consulted: tanna Reason -: Admission General Adult HPI - General Chief complaint: Hyper/Hypoglycemia Stated complaint: hyperglycemic Time Seen by Provider: 02/02/19 17:25 Mode of Arrival: EMS Source of Information: Patient Limitations: No Limitations Description of Symptoms (Recalled from ER Triage Doc. by RN): pt states she checked her blood glucose at 1500 and her sugar was greater than 600, with nausea,headache, and friends state they smelled acetone on her breath. pt took 26 units of fast acting insulin but no change. - History of Present Illness HPI narrative: recurrent admits, dka. History of non-compliance . - Related Data Home Medications Medication Instructions Recorded Confirmed Venlafaxine HCl [Effexor 37.5mg 37.5 mg PO DAILY 04/05/18 02/02/19 tablet] Melatonin 10 mg PO HS 11/03/18 02/02/19 OXcarbazepine [Trileptal 300mg 1,200 mg PO BID 11/03/18 02/02/19 tablet] Gabapentin [Gabapentin 100mg Cap] 100 mg PO TID 11/04/18 02/02/19 Methocarbamol [Methocarbamol 500mg 500 mg PO BIDP PRN 11/09/18 02/02/19 Tablet] Baclofen [Lioresal 10mg tablet] 10 mg PO BID 12/06/18 02/02/19 Omeprazole [Omeprazole 20mg 20 mg PO DAILY 12/20/18 02/02/19 Capsule] Promethazine HCl [Phenergan 12.5mg 12.5 mg PO Q6 PRN 12/20/18 02/02/19 tablet] Previous Rx's Medication Instructions Recorded levetiracetam 500 mg tablet 2,500 mg PO BID #60 tab 08/24/18 Apixaban [Eliquis] 5 mg PO BID #60 tab 09/10/18 Insulin Glargine,Hum.rec.anlog 85 unit SQ HS #0 11/05/18 [Basaglar Kwikpen U-100] Insulin Lispro [Humalog Kwikpen See Rx Instructions SUB-Q AC #0 11/05/18 U-100] Promethazine HCl [Phenergan 12.5mg 12.5 mg PO Q8HP PRN #16 tablet 12/06/18 tablet] Allergies Allergy/AdvReac Type Severity Reaction Status Date / Time buspirone [BUSPIRONE] Allergy Unknown Verified 12/05/18 22:17 nitrofurantoin Allergy Unknown Verified 12/05/18 22:17 [NITROFURANTOIN] sulfamethoxazole Allergy Unknown Verified 12/05/18 22:17 [From BACTRIM] topiramate [From TOPAMAX] Allergy Unknown Verified 12/05/18 22:17 trimethoprim [From BACTRIM] Allergy Unknown Verified 12/05/18 22:17 adhesive tape AdvReac Intermediate SKIN Verified 12/05/18 22:17 IRRITATION [facility] History - Hepatitis A Screen Drug use history?: No High risk sexual behaviors?: No History of sexually transmitted infection?: No Currently employed?: No Childcare worker?: No Do you have indoor plumbing?: Yes Do you have electricity?: Yes Attestation statement:: This patient has been screened for Hepatitis A risk factors. I have reviewed the patient's past medical history: Yes Medical History: Reports:: Arrhythmia, Deep Vein Thrombosis, Depression, Diabetes Mellitus Type 1, MRSA, Palpitations, Pulmonary Embolism, Seizures Denies:: Cancer, Diabetes Mellitus Type 2 Other Medical History: Reports: Anemia, Other. Denies: Blood Transfusion Reaction Other Surgeries: Yes: Appendectomy, Cholecystectomy, Dilation and Curettage, Hysterectomy-Partial ("everything but left ovary"), Tubal Ligation, Other (ablation) Amputation: No Fractures: No Comment: Ablation 10/30/2016 - Social History Smoking Status: Never smoker Tobacco Type: cigarettes # Packs/Day (cigarettes): 1 #Yrs smoked (if former smoker): 4 Alcohol Intake: never Alcohol Intake Frequency:: holidays/special occasions only Substance Use Type: former substance user Occupational Status: disabled Housing: apartment Household Members: none Comment: Marked medical noncompliance - Psychiatric History Expresses thoughts of harming self/others: None Suicide Plan Description: No Plan Pschychiatric History:: Reports:: Depression Family Hx:: Anemia, Asthma, Cancer, Diabetes, Heart Attack, Hyperlipidemia, Hypertension, Kidney Disease, Stroke, Thyroid Disorder ROS Obtained: Yes All systems reviewed & no additional complaints - Constitutional Constitutional: Reports system reviewed and no additional complaints, except as docu, Denies chills, Denies fever(s), Reports weakness - Eyes Eyes: Reports system reviewed and no additional complaints, except as docu, Denies change in vision - ENT Ears, Nose, Mouth, and Throat: Reports system reviewed and no additional complaints, except as docu, Denies sore throat, Denies throat swelling - Cardiovascular Cardiovascular: Reports system reviewed and no additional complaints, except as docu, Denies chest pain, Denies chest pain at rest, Denies chest pain with activity, Denies dyspnea, Denies lightheadedness, Denies rapid heart rate, Denies slow heart rate - Respiratory Respiratory: Yes system reviewed and no additional complaints, except as docu, No cough, No dyspnea - Gastrointestinal Gastrointestingal: Reports: system reviewed and no additional complaints, except as docu, abdominal pain, nausea. Denies: diarrhea, vomiting - Musculoskeletal Musculoskeletal: Denies joint stiffness, Denies joint swelling, Denies stiffness, Denies tingling - Integumentary/Breasts Skin/Breast: Denies rash - Neurologic Neurologic: Denies behavioral changes, Denies confusion, Reports weakness - Hematologic/Lymphatic Henatologic/Lymphatic: Reports system reviewed and no additional complaints, except as docu, Denies easy bleeding, Denies easy bruising, Denies lymphadenopathy Physical Exam - General General appearance: alert, in no apparent distress - Head Head exam: atraumatic, normocephalic, normal inspection - Eye Eye exam: Present: normal appearance, PERRL, EOMI - ENT ENT exam: Present: normal exam, normal oropharynx, mucous membranes moist, TM's normal bilaterally, normal external ear exam - Neck Neck exam: Present: normal inspection, full ROM, trachea midline. Absent: meningismus, lymphadenopathy - Respiratory Respiratory exam: Present: normal lung sounds bilaterally. Absent: respiratory distress - Cardiovascular Cardiovascular exam: Present: regular rate, normal rhythm. Absent: JVD - Abdominal Exam Abdominal exam: Present: tenderness. Absent: distention, guarding, rebound, rigidity Abdominal tenderness: Present: diffuse, mild - Extremities Exam Extremities exam: Present: normal inspection, full ROM, normal capillary refill. Absent: calf tenderness - Back Exam Back exam: Present: normal inspection. Absent: tenderness - Neurological Exam Neurological exam: Present: alert, oriented X3 - Psychiatric Psychiatric exam: Present: normal affect, normal mood - Skin Skin exam: Present: warm, dry, intact, normal color
[2019-02-02 17:50] LABS: Microscopic, Urine URINE MICROSCOPIC (MICROSCOPIC)
[2019-02-02 17:53] LABS: Appearance,Urine CLEAR (Clear); Bilirubin,Urine Negative (Negative); Blood, Urine Negative (Negative); Color,Urine STRAW (Yellow); Glucose,Urine (UA) 3+ (Negative); Ketones,Urine 1+ (Negative); Leukocyte Esterase,Urine Negative (Negative); PH,Urine 5.5 (5.0-8.5); Protein,Urine Negative (Negative); Specific Gravity, Urine <= 1.005 (1.005-1.030); Urobilinogen,Urine 0.2 EU/dl (0.2)
[2019-02-02 18:02] LABS: Basophils % 0.6 % (0.1-2.0); Eosinophils # 0.1 K/mm3 (0.0-0.4); Eosinophils % 0.7 % (0.1-12.0); Hematocrit 39.2 % (37.0-47.0); Lymphocytes % 14.4 % (10-50); Mean Corpuscular HGB Conc 30.6 g/dL (31.8-35.4); Mean Corpuscular Hemoglobin 25.6 pg (27.0-31.2); Mean Corpuscular Volume 83.9 fl (81-99); Mean Platelet Volume 9.2 fl (7.4-10.4); Monocytes # 0.2 K/mm3 (0.1-1.0); Monocytes % 3.1 % (1.7-9.3); Neutrophils # 5.4 K/mm3 (1.8-7.8); Neutrophils % 81.2 % (37.0-80.0); Platelet Count 257 K/mm3 (142-424); Red Blood Count 4.67 M/mm3 (4.20-5.40); Red Cell Distribution Width 15.8 % (11.5-17.5); White Blood Count 6.7 K/mm3 (4.8-10.8)
[2019-02-02 18:13] LABS: ABG HCO3 16.6 mmhg (22.0-26.0); ABG Oxygen Saturation 98 % (90-100); ABG PCO2 22.8 mmhg (35.0-45.0); ABG PH 7.48 mmol/L (7.35-7.45); ABG PO2 109.6 mmhg (80-100); ABG TCO2 17.3 mmhg (23-27)
[2019-02-02 18:16] LABS: Allen's Test Acceptable; Oxygen room air %
[2019-02-02 18:16] LABS: Albumin Level 3.2 gm/dL (3.4-5.0); Albumin/Globulin Ratio 0.7 (1.1-1.8); Anion Gap 16.5 mEq/L (5-15); Bilirubin,Total 0.3 mg/dL (0.2-1.0); Calcium 9.1 mg/dL (8.5-10.1); Globulin 4.8 gm/dl (1.3-3.2); Potassium 4.5 mmoL/L (3.5-5.1)
--- NOTE | 2019-02-03 00:28 | History & Physical Report ---
*Admission Date: 02/02/19 *Chief complaint: nausea, abdominal pain *History of present illness: Homa is a 28-year-old type I diabetic with history of seizure disorder, uncontrolled diabetes, peripheral neuropathy, right eye blindness who presented to the ER due to having high blood sugar and feeling weak and nauseated. Reports having abdominal discomfort for 3-4 days prior to coming to the ER. Developed copious watery stools the day prior to presentation with approximately 20 stools in 1 day. Checked her blood sugar at home and her meter read HI. Gave herself 26 units of insulin and came to the ER. Upon presentation she was found to have hyperglycemia with glucose in the 700s, normal acid-base status, small ketones, acute kidney injury, and slight elevation in anion gap. She was admitted for fluid resuscitation, workup of her diarrhea, and glucose control. Initiated on her long-acting insulin with q. 3-hour subcu corrections. Administered 2-1/2 L of IV fluids. Patient's glucose responded briskly with normalization. Stool PCR positive for Clostridium difficile. Treatment initiated overnight. Upon examination this morning patient continues to be very fatigued, have stomach cramping, and is Obdulio had at least 6 stools this morning. Denies emesis, blood in stool, confusion, seizures. Tolerating regular diet with minimal nausea -No shortness of breath, or chest pain. [facility] History I have reviewed the patient's past medical history: Yes Medical History: Reports:: Arrhythmia, Deep Vein Thrombosis, Depression, Diabetes Mellitus Type 1, Palpitations, Pulmonary Embolism, Seizures Denies:: Cancer, Diabetes Mellitus Type 2, MRSA *Have you ever received a pneumonia vaccine?: Yes *Have you received a flu vaccine this season?: No Other Medical History: Reports: Anemia, Other. Denies: Blood Transfusion Reaction Other Surgeries: Yes: Appendectomy, Cholecystectomy, Dilation and Curettage, Hysterectomy-Partial ("everything but left ovary"), Tubal Ligation, Other (ablation) Amputation: No Fractures: No - *Social History Educational Level: Completed High School Smoking Status: Former smoker Tobacco Type: cigarettes # Packs/Day (cigarettes): 1 #Yrs smoked (if former smoker): 4 Alcohol Intake: never Alcohol Intake Frequency:: holidays/special occasions only Substance Use Type: former substance user *Occupational Status:: disabled Housing: apartment Household Members: significant other *Travel in the last 8 weeks: None - Psychiatric History Expresses thoughts of harming self/others: None Suicide Plan Description: No Plan Pschychiatric History:: Reports:: Depression Family Hx:: Anemia, Asthma, Cancer, Diabetes, Heart Attack, Hyperlipidemia, Hypertension, Kidney Disease, Stroke, Thyroid Disorder Review of Systems - Review of Systems Review of systems:: pertinent systems reviewed and negative unless documented below - *Neurologic Reports weakness, Denies behavioral changes, Denies confusion, Denies tingling Meds Home Medications Medication Instructions Recorded Confirmed Type Venlafaxine HCl [Effexor 37.5mg 37.5 mg PO DAILY 04/05/18 02/02/19 History tablet] levetiracetam 500 mg tablet 2,500 mg PO BID #60 tab 08/24/18 02/02/19 Rx Apixaban [Eliquis] 5 mg PO BID #60 tab 09/10/18 02/02/19 Rx Melatonin 10 mg PO HS 11/03/18 02/02/19 History OXcarbazepine [Trileptal 300mg 1,200 mg PO BID 11/03/18 02/02/19 History tablet] Gabapentin [Gabapentin 100mg Cap] 100 mg PO TID 11/04/18 02/02/19 History Insulin Glargine,Hum.rec.anlog 85 unit SQ HS #0 11/05/18 02/02/19 Rx [Basaglar Kwikpen U-100] Insulin Lispro [Humalog Kwikpen See Rx Instructions SUB-Q AC #0 11/05/18 02/02/19 Rx U-100] Methocarbamol [Methocarbamol 500mg 500 mg PO Q8HP PRN 11/09/18 02/03/19 History Tablet] Baclofen [Lioresal 10mg tablet] 10 mg PO BID 12/06/18 02/02/19 History Omeprazole [Omeprazole 20mg 20 mg PO DAILY 12/20/18 02/02/19 History Capsule] Promethazine HCl [Phenergan 12.5mg 12.5 mg PO Q8 PRN 12/20/18 02/02/19 History tablet] Diclofenac Sodium [Diclo Gel] 1 each TP QID 02/03/19 02/03/19 History Allergies Allergy/AdvReac Type Severity Reaction Status Date / Time buspirone [BUSPIRONE] Allergy Unknown Verified 12/05/18 22:17 nitrofurantoin Allergy Unknown Verified 12/05/18 22:17 [NITROFURANTOIN] sulfamethoxazole Allergy Unknown Verified 12/05/18 22:17 [From BACTRIM] topiramate [From TOPAMAX] Allergy Unknown Verified 12/05/18 22:17 trimethoprim [From BACTRIM] Allergy Unknown Verified 12/05/18 22:17 adhesive tape AdvReac Intermediate SKIN Verified 12/05/18 22:17 IRRITATION Exam Vital signs and Labs for Last 24 Hours: Temp Pulse Resp BP Pulse Ox 97.5 F L 73 14 118/81 98 02/02/19 21:50 02/02/19 21:50 02/02/19 21:50 02/02/19 21:50 02/02/19 22:00 Laboratory Results - last 24 hr 02/02/19 17:30: Urine Color Straw, Urine Appearance Clear, Urine pH 5.5, Ur Specific [place] <= 1.005, Urine Protein Negative, Urine Glucose (UA) 3+, Urine Ketones 1+, Urine Blood Negative, Urine Nitrate Negative, Urine Bilirubin Negative, Urine Urobilinogen 0.2, Ur Leukocyte Esterase Negative, Urine RBC None, Urine WBC 3-5, Ur Squamous Epith Cells 5-10, Urine Bacteria None 02/02/19 17:38: Specimen Source Right radial, O2 % room air, ABG pH 7.48 H, ABG pCO2 22.8 L, ABG pO2 109.6 H, ABG HCO3 16.6 L, ABG Total CO2 17.3 L, ABG O2 Saturation 98, ABG Base Excess -7.0 L, Agustin Test Acceptable 02/02/19 17:50: WBC 6.7, RBC 4.67, Hgb 12.0 L, Hct 39.2, MCV 83.9, MCH 25.6 L, MCHC 30.6 L, RDW 15.8, Plt Count 257, MPV 9.2, Neut % (Auto) 81.2 H, Lymph % (Auto) 14.4, [place] % (Auto) 3.1, Eos % (Auto) 0.7, Baso % (Auto) 0.6, Neut # (Auto) 5.4, Lymph # (Auto) 1.0, [place] # (Auto) 0.2, Eos # (Auto) 0.1, Baso # (Auto) 0.0 02/02/19 17:50: Sodium 124 L, Potassium 4.5, Chloride 91 L, Carbon Dioxide 21, Anion Gap 16.5 H, BUN 17, Creatinine 1.18 H, Estimated Creat Clear 92, Estimated GFR 55 L, Est GFR ( Amer) 66, Glucose 744 H*, Calcium 9.1, Total Bilirubin 0.3, AST 7 L, ALT 20, Alkaline Phosphatase 165 H, Total Protein 8.0, Albumin 3.2 L, Globulin 4.8 H, Albumin/Globulin Ratio 0.7 L 02/02/19 17:50: Lactate 3.6 H 02/02/19 17:50: Acetone Level Small 02/02/19 21:13: POC Glucose 237 H 02/02/19 22:00: Lactate 1.8 02/03/19 00:03: POC Glucose 174 H I & O for Last 24 hours: Intake & Output 01/31/19 02/01/19 02/02/19 02/03/19 23:59 23:59 23:59 23:59 Intake Total 1999 Balance 1999 Weight 83.688 kg - Constitutional mild distress, obese - *Routine HEENT Exam Head: Present: normocephalic Eye: Present: EOMI, PERRL ENT: Present: mucous membranes moist - *Routine Neck Exam Present: supple. Absent: lymphadenopathy - *Routine Respiratory Exam Present: CTA bilaterally - *Routine Cardiovascular Exam Present: RRR - *Routine Abdominal Exam Present: soft, tenderness Comments: Hyperactive bowel sounds, diffuse nonfocal tenderness - *Routine Extremities Exam Absent: cyanosis, clubbing, edema - *Routine Skin Exam Present: warm. Absent: rash - *Routine Neurological Exam Present: alert, oriented X3 Assessment and Plan (1) DAVIDA (acute kidney injury) Current visit: Yes Status: Acute Category: Medical Code(s): N17.9 - Acute kidney failure, unspecified (2) Hyperglycemia due to type 1 diabetes mellitus Current visit: Yes Status: Chronic Category: Medical Code(s): E10.65 - Type 1 diabetes mellitus with hyperglycemia (3) Diarrhea Current visit: No Status: Acute Qualifiers: Category: Medical Code(s): R19.7 - Diarrhea, unspecified (4) Dehydration Current visit: No Status: Resolved Category: Medical Code(s): E86.0 - Dehydration (5) Hyponatremia Current visit: Yes Status: Acute Category: Medical Code(s): E87.1 - Hypo- osmolality and hyponatremia (6) Hypochloremia Current visit: Yes Status: Acute Category: Medical Code(s): E87.8 - Other disorders of electrolyte and fluid balance, not elsewhere classified (7) High anion gap metabolic acidosis Current visit: Yes Status: Acute Category: Medical Code(s): E87.2 - Acidosis (8) Hypokalemia Current visit: Yes Status: Acute Category: Medical Code(s): E87.6 - Hypokalemia (9) C. difficile enteritis Current visit: No Status: Acute Category: Medical Code(s): A04.72 - Enterocolitis due to Clostridium difficile, not specified as recurrent - Assessment and plan all Dx Assessment and Plan for all problems:: Homa is a 28-year-old female with uncontrolled type 1 diabetes who has been recently lost to follow-up who presents with gastroenteritis due to C. difficile . -Clinically she has responded well to resumption of home insulin regimen with normalization of blood sugars. -Tolerating regular diet -Mealtime insulin reduced by 50% as she is not eating her normal amount -Initiated on p.o. vancomycin and Flagyl for C. difficile, this is her third episode per her report -Continuing to require aggressive IV rehydration due to copious watery stools. -Hyponatremia and hypochloremia resolved with fluid resuscitation and normalization of blood sugar -Hypokalemia being replaced with p.o. potassium chloride -Continue seizure precautions for history of difficult to control seizures, continue home antiepileptic medications -Continues to require inpatient management due to risk of recurrence of hyperglycemia given gastroenteritis symptoms. -Plan for discharge when patient is more stable and having less than 4 loose stools a day, along with ability to maintain hydration status orally
[2019-02-03 00:37] LABS: Calcium 8.6 mg/dL (8.5-10.1)
[2019-02-03 06:48] LABS: Anion Gap 10.1 mEq/L (5-15); Calcium 8.2 mg/dL (8.5-10.1); Phosphorous 3.3 mg/dL (2.4-4.9); Potassium 3.1 mmoL/L (3.5-5.1)
--- NOTE | 2019-02-03 08:30 | Pharmacy Consult Notes ---
[facility] Pharmacy VTE Monitoring - Patient Demographics Admission date: 02/02/19 Report Date: 02/03/19 Time: 08:30 Allergies/Adverse Reactions: Patient Allergies buspirone [BUSPIRONE] Allergy (Unknown, Verified 12/05/18 22:17) nitrofurantoin [NITROFURANTOIN] Allergy (Unknown, Verified 12/05/18 22:17) sulfamethoxazole [From BACTRIM] Allergy (Unknown, Verified 12/05/18 22:17) topiramate [From TOPAMAX] Allergy (Unknown, Verified 12/05/18 22:17) trimethoprim [From BACTRIM] Allergy (Unknown, Verified 12/05/18 22:17) adhesive tape Adverse Reaction (Intermediate, Verified 12/05/18 22:17) SKIN IRRITATION Height: 1.6 m Weight: 88.11 kg Patient Problems: Current Active Problems DAVIDA (acute kidney injury) (Acute) Hyponatremia (Acute) Hypochloremia (Acute) High anion gap metabolic acidosis (Acute) Hyperglycemia due to type 1 diabetes mellitus (Chronic) - VTE Risk Labs: VTE Related Lab Results Hgb 12.0 g/dL (12.2-16.2) L 02/02/19 17:50 Hct 39.2 % (37.0-47.0) 02/02/19 17:50 Plt Count 257 K/mm3 (142-424) 02/02/19 17:50 BUN 12 mg/dL (7-18) 02/03/19 05:40 Creatinine 0.63 mg/dL (0.55-1.02) 02/03/19 05:40 Estimated Creat Clear 187 mL/min (50-200) 02/03/19 05:40 Was VTE Risk Assessment Performed: Yes VTE Score: 3 VTE Risk Level: Moderate Risk Clinical Trial Participant: No - Prophylaxis VTE Prophylaxis Ordered?: Yes Types of VTE Prophylaxis: TEDS Knee High
[2019-02-03 18:47] LABS: Anion Gap 10.9 mEq/L (5-15); Calcium 8.6 mg/dL (8.5-10.1); Potassium 3.9 mmoL/L (3.5-5.1)
[2019-02-04 06:34] LABS: Anion Gap 12.7 mEq/L (5-15); Calcium 8.5 mg/dL (8.5-10.1); Potassium 3.7 mmoL/L (3.5-5.1)
--- NOTE | 2019-02-04 08:26 | Discharge Summary ---
General - General Admission date:: 02/02/19 Discharge date: 02/04/19 HPI HPI: Homa is a 28-year-old type I diabetic with history of seizure disorder, uncontrolled diabetes, peripheral neuropathy, right eye blindness who presented to the ER due to having high blood sugar and feeling weak and nauseated. Reports having abdominal discomfort for 3-4 days prior to coming to the ER. Developed copious watery stools the day prior to presentation with approximately 20 stools in 1 day. Checked her blood sugar at home and her meter read HI. Gave herself 26 units of insulin and came to the ER. Upon presentation she was found to have hyperglycemia with glucose in the 700s, normal acid-base status, small ketones, acute kidney injury, and slight elevation in anion gap. She was admitted for fluid resuscitation, workup of her diarrhea, and glucose control. Initiated on her long-acting insulin with q. 3-hour subcu corrections. Administered 2-1/2 L of IV fluids. Patient's glucose responded briskly with normalization. Stool PCR positive for Clostridium difficile. Treatment initiated overnight. Upon examination this morning patient continues to be very fatigued, have stomach cramping, and has already had at least 6 stools this morning. Denies emesis, blood in stool, confusion, seizures. Tolerating regular diet with minimal nausea -No shortness of breath, or chest pain. Hospital Course Hospital Course: Patient was admitted to hospital. Vancomycin was started for community-acquired C. difficile. Tolerated this well. She was given IV fluids as noted and improved overnight in regards to symptomatic vomiting/diarrhea. This morning laboratory studies remain essentially normal with improving anion gap, normal kidney function, normal electrolytes and well-controlled glucose. She reports 2 liquid stools this morning but was able to eat 100% of her breakfast and has had no vomiting. Exam essentially normal for her baseline. Plan will be to discharge home with p.o. vancomycin. Instructed her to obtain salt containing oral rehydration solutions and use Zofran for nausea. We will follow her up in the office early next week. Objective Vital signs: Temp Pulse Resp BP Pulse Ox 98.2 F 64 16 102/65 L 96 02/04/19 04:00 02/04/19 04:00 02/04/19 04:00 02/04/19 04:00 02/04/19 04:00 Narrative: Patient is sleeping, when awakened is alert, oriented x3. Anterior lung piedra are clear. Heart rate regular. Abdomen is soft with minimal cramping type muscular pain but no deep pain. No rebound or guarding. No CVA tenderness. Warm and well-perfused extremities noted. Other than her noted eye abnormalities her radial nerves are symmetric and her 4 extremities have good strength and mobility. Oropharynx clear, no JVD, otherwise head neck exam unremarkable Results Labs on day of discharge: Labs from last 24 hours 02/04/19 02/04/19 02/03/19 05:35 05:15 20:36 Sodium 140 Potassium 3.7 Chloride 104 Carbon Dioxide 27 Anion Gap 12.7 BUN 11 Creatinine 0.51 L Estimated Creat Clear 230 Estimated GFR 145 Est GFR ( Amer) 175 D Glucose 106 POC Glucose 111 H 180 H Calcium 8.5 Magnesium 1.5 02/03/19 02/03/19 02/03/19 18:03 16:41 13:12 Sodium 142 Potassium 3.9 D Chloride 107 Carbon Dioxide 28 Anion Gap 10.9 BUN 12 Creatinine 0.61 Estimated Creat Clear 193 Estimated GFR 118 Est GFR ( Amer) 142 Glucose 113 H D POC Glucose 112 H 91 Calcium 8.6 Magnesium 02/03/19 02/03/19 12:29 11:23 Sodium Potassium Chloride Carbon Dioxide Anion Gap BUN Creatinine Estimated Creat Clear Estimated GFR Est GFR ( Amer) Glucose POC Glucose 55 L 129 H Calcium Magnesium DS: Diagnosis - Discharge Diagnosis (1) DAVIDA (acute kidney injury) Status: Resolved (2) Hyperglycemia due to type 1 diabetes mellitus Status: Resolved (3) Diarrhea Status: Resolved (4) Dehydration Status: Resolved (5) Hyponatremia Status: Resolved (6) Hypochloremia Status: Resolved (7) High anion gap metabolic acidosis Status: Resolved (8) Hypokalemia Status: Resolved (9) C. difficile enteritis Status: Acute Discharge Plan - Patient Discharge Instructions ACTIVITY: Continue current activity DIET: continue same diet Patient Instructions: Antibiotic-associated Colitis -- C difficile, DI for Antibiotic -- associated Colitis -- C difficile, DI for Hyperglycemia -- Adult - Follow up Plan Follow up with: Srini Ayala MD [Primary Care Provider] - 02/07/19 Disposition: Home, Self-Long-Term Medications: Home Medications Medication Instructions Recorded Confirmed Type Venlafaxine HCl [Effexor 37.5mg 37.5 mg PO DAILY 04/05/18 02/02/19 History tablet] levetiracetam 500 mg tablet 2,500 mg PO BID #60 tab 08/24/18 02/02/19 Rx Apixaban [Eliquis] 5 mg PO BID #60 tab 09/10/18 02/02/19 Rx Melatonin 10 mg PO HS 11/03/18 02/02/19 History OXcarbazepine [Trileptal 300mg 1,200 mg PO BID 11/03/18 02/02/19 History tablet] Gabapentin [Gabapentin 100mg Cap] 100 mg PO TID 11/04/18 02/02/19 History Insulin Glargine,Hum.rec.anlog 85 unit SQ HS #0 11/05/18 02/02/19 Rx [Basaglar Kwikpen U-100] Insulin Lispro [Humalog Kwikpen See Rx Instructions SUB-Q AC #0 11/05/18 02/02/19 Rx U-100] Methocarbamol [Methocarbamol 500mg 500 mg PO Q8HP PRN 11/09/18 02/03/19 History Tablet] Baclofen [Lioresal 10mg tablet] 10 mg PO BID 12/06/18 02/02/19 History Omeprazole [Omeprazole 20mg 20 mg PO DAILY 12/20/18 02/02/19 History Capsule] Promethazine HCl [Phenergan 12.5mg 12.5 mg PO Q8 PRN 12/20/18 02/02/19 History tablet] Diclofenac Sodium [Diclo Gel] 1 each TP QID 02/03/19 02/03/19 History Ondansetron HCl [Zofran 4mg Tab] 4 mg PO QIDP PRN #15 tab 02/04/19 Rx Vancomycin HCl [Vancomycin 500mg 250 mg PO QID #28 vial 02/04/19 Rx vial] Prescriptions/Medication Reconciliation: New Ondansetron HCl [Zofran 4mg Tab] 4 mg PO QIDP PRN #15 tab PRN Reason: Nausea Vancomycin HCl [Vancomycin 500mg vial] 250 mg PO QID #28 vial Continue levetiracetam 500 mg tablet 2,500 mg PO BID #60 tab Apixaban [Eliquis] 5 mg PO BID #60 tab OXcarbazepine [Trileptal 300mg tablet] 1,200 mg PO BID Insulin Glargine,Hum.rec.anlog [Basaglar Kwikpen U-100] 85 unit SQ HS #0 Methocarbamol [Methocarbamol 500mg Tablet] 500 mg PO Q8HP PRN PRN Reason: MUSCLE SPASMS Promethazine HCl [Phenergan 12.5mg tablet] 12.5 mg PO Q8 PRN PRN Reason: Nausea Venlafaxine HCl [Effexor 37.5mg tablet] 37.5 mg PO DAILY Melatonin 10 mg PO HS Gabapentin [Gabapentin 100mg Cap] 100 mg PO TID Insulin Lispro [Humalog Kwikpen U-100] See Rx Instructions SUB-Q AC #0 Baclofen [Lioresal 10mg tablet] 10 mg PO BID Omeprazole [Omeprazole 20mg Capsule] 20 mg PO DAILY Diclofenac Sodium [Diclo Gel] 1 each TP QID
[2019-02-04 09:52] VITALS: BP 120/6
== END 2019-02-04 09:45 | disposition home or self-care (01) ==
LOC: 2ND 17:12 → ER 17:12 → 2ND 20:21
PROVIDERS: ADMIT Internal Medicine Adolescent Medicine; ATTEND Internal Medicine Adolescent Medicine
CPT/HCPCS: 80048; 80053; 81001; 82009; 82803; 82962; 83036; 83605; 83735; 84100; 85025; 87506; 96365; 96366; 99284; G0378; J2405; J3370

== ENCOUNTER → 2019-02-10 11:21 | Outpatient (CLI) | payer MEDICAID, SELFPAY ==
--- NOTE | 2019-02-10 11:46 | CT_ITS ---
CT angio chest HISTORY: Shortness of air, chest pain, history of pulmonary embolus ITS.REASON: DYSPNEA ORDERING PHYSICIAN: Srini Ayala MD PATIENT AGE: 28 years COMPARISON: None TECHNIQUE: Axial images obtained following the administration of 75 mL of Optiray 350 . Sagittal, and coronal reformatted images are also generated and reviewed. All CT scans at the facility use one or more dose reduction, viz: automated exposure control, ma/kV adjustment per patient size (including targeted exams where dose is matched to indication, i.e. head), or iterative reconstruction technique. FINDINGS: PULMONARY ARTERIES:No pulmonary embolus evident. AORTA:No acute finding. No thoracic aortic aneurysm or dissection evident LUNGS:Unremarkable. No mass or consolidation. Minimal atelectatic changes are present in the lung bases PLEURAL SPACES:No significant effusion. No evidence of pneumothorax. HEART:Unremarkable. Normal heart size. No significant pericardial effusion. MEDIASTINAL AND HILAR STRUCTURES:No mediastinal or hilar mass evident. No dominant adenopathy. Soft tissue density is noted in the anterior mediastinum likely related to residual thymic tissue BONY STRUCTURES:No acute bony abnormalities apparent LYMPH NODES:No enlarged lymph nodes evident UPPER ABDOMEN:Unremarkable Right IJ Mediport catheter present. The tip is in the region of the distal SVC IMPRESSION: No acute finding with no evidence of pulmonary embolus.
== END ==
LOC: RAD 11:23 → INF 12:19
PROVIDERS: PCP Internal Medicine Adolescent Medicine; Visit Provider Internal Medicine Adolescent Medicine
DX: R06.00 Dyspnea, unspecified (principal)
CPT/HCPCS: 71275; Q9967

== ENCOUNTER 2019-02-18 16:55 | Observation (INO) ==
--- NOTE | 2019-02-18 17:17 | Emergency Department Note ---
ED Disposition Clinical Impression: Nephrolithiasis, IDDM (insulin dependent diabetes mellitus), Hx of Clostridium difficile infection, Ileus Disposition: Still a Patient Condition on Discharge: Fair Instructions: DI for Acute Abdomen Referrals: Srini Ayala MD [Primary Care Provider] - - Critical Care Critical Care Time: No Attestation: On 02/18/19, the high probability of a clinically significant, sudden or life threatening deterioration of the following system(s) required my full and direct attention, intervention and personal management. The time I documented below is in addition to time spent performing reported procedures but includes the following listed in this critical care notation. Medical Decision Making - Jamari Inquiry Pt receiving controlled substance: No Jamari was queried for this patient: No Vital Signs: 02/18/19 17:02 Temperature 98.1 F Temperature Source Oral Pulse Rate [Right Brachial] 97 H Respiratory Rate 18 Blood Pressure [Right Arm] 157/101 H Blood Pressure Mean [Right Arm] 119 Blood Pressure Source [Right Arm] Automatic Cuff Blood Pressure Position [Right Arm] Sitting 02 Sat by Pulse Oximetry 97 Oxygen Delivery Method Room Air - Lab Data Lab Results 02/18/19 17:02: POC Glucose 416 H* 02/18/19 17:07: Urine Color Yellow, Urine Appearance Sl cloudy, Urine pH 6.0, Ur Specific [place] 1.025, Urine Protein Trace, Urine Glucose (UA) 3+, Urine K etones Negative, Urine Blood Negative, Urine Nitrate Negative, Urine Bilirubin Negative, Urine Urobilinogen 0.2, Ur Leukocyte Esterase Negative, Urine WBC Occasional, Ur Squamous Epith Cells 5-10, Urine Bacteria Trace 02/18/19 17:30: WBC 5.7, RBC 4.40, Hgb 11.2 L, Hct 35.8 L, MCV 81.3, MCH 25.4 L, MCHC 31.2 L, RDW 15.5, Plt Count 240, MPV 8.8, Neut % (Auto) 69.7, Lymph % ( Auto) 24.5, Brule % (Auto) 4.1, Eos % (Auto) 0.8, Baso % (Auto) 0.8, Neut # (Auto) 4.0, Lymph # (Auto) 1.4, Brule # (Auto) 0.2, Eos # (Auto) 0.1, Baso # (Auto) 0.1 02/18/19 17:30: Sodium 135 L, Potassium 4.2, Chloride 98, Carbon Dioxide 26, Anion Gap 15.2 H, BUN 14, Creatinine 0.93, Estimated Creat Clear 120, Estimated GFR 72, Est GFR ( Amer) 88, Glucose 462 H*, Calcium 9.3, Total Bilirubin 0.2, AST 29, ALT 48, Alkaline Phosphatase 178 H, Lactate Dehydrogenase 145, Total Protein 7.7, Albumin 3.2 L, Globulin 4.5 H, Albumin/Globulin Ratio 0.7 L, Lipase 201 02/18/19 17:30: Lactate 2.7 H 02/18/19 17:30: Magnesium 1.6, Lactate Dehydrogenase 152 02/18/19 17:30: Acetone Level None detected 02/18/19 18:48: VBG pH 7.36, VBG pCO2 39.2, VBG pO2 65.0 H, VBG HCO3 21.8 L, VBG Total CO2 23.0, VBG O2 Saturation 90.9 H, VBG Base Excess -3.6 L 02/18/19 19:40: Sodium 133 L, Potassium 4.5, Chloride 97 L, Carbon Dioxide 26, Anion Gap 14.5, BUN 13, Creatinine 0.88, Estimated Creat Clear 127, Estimated GFR 77, Est GFR ( Amer) 93, Glucose 439 H*, Calcium 9.0 02/18/19 19:40: Lactate 3.3 H Result diagrams: 02/18/19 17:30 02/18/19 19:40 Orders (Tests/Meds): ED MEDICATIONS Generic Name Dose Route Start Last Admin Trade Name Freq PRN Reason Stop Dose Admin Sodium Chloride 1,000 mls @ 999 mls/hr 02/18/19 20:00 02/18/19 19:59 Sod Chlor 0.9% 1000ml Bag IV 02/18/19 21:00 999 mls/hr .Q1H1M DALIA Administration Discontinued Medications Generic Name Dose Route Start Last Admin Trade Name Freq PRN Reason Stop Dose Admin Diatrizoate Meglum/Diatrizoate Sod 30 ml 02/18/19 17:13 02/18/19 17:52 Gastrografin 66%-10% 30ml PO 02/18/19 17:14 30 ml ONCE ONE Administration Famotidine 20 mg 02/18/19 17:11 02/18/19 17:51 Pepcid 20mg/2ml Vial IV 02/18/19 17:12 20 mg ONCE ONE Administration Ioversol 75 ml 02/18/19 19:17 02/18/19 19:18 Rad-Optiray 350 100ml Vial IV 02/18/19 19:18 75 ml ONCE ONE Administration Protocol Morphine Sulfate 2 mg 02/18/19 17:12 02/18/19 17:51 Morphine 2mg/Ml Syringe IV 02/18/19 17:13 2 mg ONCE ONE Administration Morphine Sulfate 2 mg 02/18/19 20:17 02/18/19 20:20 Morphine 2mg/Ml Syringe IV 02/18/19 20:18 2 mg ONCE ONE Administration Sodium Chloride 10 ml 02/18/19 19:17 02/18/19 19:18 Rad-Saline Flush 10ml Syringe IV 02/18/19 19:18 10 ml ONCE ONE Administration ORDERS Category Date Time Status CT abdomen pelvis wo/w con Stat Cat Scan 02/18/19 17:13 Taken Diarrhea 23 Panel, PCR Stat Lab 02/18/19 17:20 Ordered - CT Data CT Scan: Abdomen, Pelvis Time Received: 21:[address] Reviewed: Yes: I have viewed the radiologist's interpretation Preliminary Findings: Abnormal Findings Narrative: Positive for ileus and constipation. Medical Decision Narrative: I discussed her with Dr. Ayala who is very familiar with her he will decided to admit her was on 60 of Lantus and 20 of Humalog with her meals.. Abdominal Pain HPI - General Chief Complaint: Abdominal Pain Stated Complaint: Severe Pelvic Pain Time Seen by Provider: 02/18/19 17:05 Mode of Arrival: Wheelchair Limitations: No Limitations Description of Symptoms (Recalled from ER Triage Doc. by RN): was sitting and playing video games when she began having low centrallized abd pain that radiated into her left side.; no recent issues outside of having cdiff a couple of weeks ago. states she finished that medication - History of Present Illness HPI narrative: 28 years old white female with 3 of nephrolithiasis and insulin-dependent diabetes mellitus with complications, including multiple DKA's, right eye blindness and difficult IV access. She is a status post appendectomy, cholecystectomy, and hysterectomy with right oophorectomy. Today at 1530, she developed sudden onset left lower quadrant pain radiating to the left flank region and left thigh region without nausea, vomiting, nor diarrhea. She denies having dysuria hematuria or frequency. She has just fi nished a course of antibiotics for C. difficile. MD complaint: abdominal pain, flank pain Onset (ago): minute(s) (90 minutes prior to arrival.) Consistency: constant Location: LLQ, L flank Severity: severe Quality: sharp Radiation: L flank Relieving factors: nothing Exacerbating factors: nothing Associated symptoms: denies other symptoms - Related Data Home Medications Medication Instructions Recorded Confirmed Venlafaxine HCl [Effexor 37.5mg 37.5 mg PO DAILY 04/05/18 02/02/19 tablet] Melatonin 10 mg PO HS 11/03/18 02/02/19 OXcarbazepine [Trileptal 300mg 1,200 mg PO BID 11/03/18 02/02/19 tablet] Gabapentin [Gabapentin 100mg Cap] 100 mg PO TID 11/04/18 02/02/19 Methocarbamol [Methocarbamol 500mg 500 mg PO Q8HP PRN 11/09/18 02/03/19 Tablet] Baclofen [Lioresal 10mg tablet] 10 mg PO BID 12/06/18 02/02/19 Omeprazole [Omeprazole 20mg 20 mg PO DAILY 12/20/18 02/02/19 Capsule] Promethazine HCl [Phenergan 12.5mg 12.5 mg PO Q8 PRN 12/20/18 02/02/19 tablet] Diclofenac Sodium [Diclo Gel] 1 each TP QID 02/03/19 02/03/19 Previous Rx's Medication Instructions Recorded levetiracetam 500 mg tablet 2,500 mg PO BID #60 tab 08/24/18 Apixaban [Eliquis] 5 mg PO BID #60 tab 09/10/18 Insulin Glargine,Hum.rec.anlog 85 unit SQ HS #0 11/05/18 [Basaglar Kwikpen U-100] Insulin Lispro [Humalog Kwikpen See Rx Instructions SUB-Q AC #0 11/05/18 U-100] Ondansetron HCl [Zofran 4mg Tab] 4 mg PO QIDP PRN #15 tab 02/04/19 Vancomycin HCl [Vancomycin 500mg 250 mg PO QID #28 vial 02/04/19 vial] Allergies Allergy/AdvReac Type Severity Reaction Status Date / Time buspirone [BUSPIRONE] Allergy Unknown Verified 12/05/18 22:17 nitrofurantoin Allergy Unknown Verified 12/05/18 22:17 [NITROFURANTOIN] sulfamethoxazole Allergy Unknown Verified 12/05/18 22:17 [From BACTRIM] topiramate [From TOPAMAX] Allergy Unknown Verified 12/05/18 22:17 trimethoprim [From BACTRIM] Allergy Unknown Verified 12/05/18 22:17 adhesive tape AdvReac Intermediate SKIN Verified 12/05/18 22:17 IRRITATION [facility] History - Hepatitis A Screen Drug use history?: No High risk sexual behaviors?: No History of sexually transmitted infection?: No Currently employed?: No Childcare worker?: No Do you have indoor plumbing?: Yes Do you have electricity?: Yes Attestation statement:: This patient has been screened for Hepatitis A risk factors. I have reviewed the patient's past medical history: Yes Medical History: Reports:: Arrhythmia, Deep Vein Thrombosis, Depression, Diabetes Mellitus Type 1, Palpitations, Pulmonary Embolism, Seizures Denies:: Cancer, Diabetes Mellitus Type 2, MRSA Other Medical History: Reports: Anemia, Other. Denies: Blood Transfusion Reaction Other Surgeries: Yes: Appendectomy, Cholecystectomy, Dilation and Curettage, Hysterectomy-Partial ("everything but left ovary"), Tubal Ligation, Other (ablation) Amputation: No Fractures: No Comment: Ablation 10/30/2016 - Social History Educational Level: Completed High School Smoking Status: Former smoker Tobacco Type: cigarettes # Packs/Day (cigarettes): 1 #Yrs smoked (if former smoker): 4 Alcohol Intake: never Alcohol Intake Frequency:: holidays/special occasions only Substance Use Type: former substance user Occupational Status: disabled Housing: apartment Household Members: significant other Comment: Marked medical noncompliance - Psychiatric History Expresses thoughts of harming self/others: None Suicide Plan Description: No Plan Pschychiatric History:: Reports:: Depression Family Hx:: Anemia, Asthma, Cancer, Diabetes, Heart Attack, Hyperlipidemia, Hypertension, Kidney Disease, Stroke, Thyroid Disorder ROS Obtained: Yes All systems reviewed & no additional complaints Physical Exam - General General appearance: alert, in no apparent distress - Head Head exam: atraumatic, normocephalic, normal inspection - Eye Eye exam: Present: normal appearance, PERRL, EOMI. Absent: scleral icterus, nystagmus - ENT ENT exam: Present: normal exam, normal oropharynx, mucous membranes moist, TM's normal bilaterally, normal external ear exam - Neck Neck exam: Present: normal inspection, full ROM, trachea midline. Absent: tenderness, meningismus, lymphadenopathy - Chest Chest inspection: Present: normal inspection, symmetric chest wall rise. Absent: tenderness - Respiratory Respiratory exam: Present: normal lung sounds bilaterally. Absent: respiratory distress, wheezes - Cardiovascular Cardiovascular exam: Present: regular rate, normal rhythm, normal heart sounds. Absent: JVD - Abdominal Exam Abdominal exam: Present: soft, normal bowel sounds. Absent: distention, tenderness, guarding, rebound, rigidity - External exam: Present: normal external exam, tenderness, other (Pelvic examination revealed normal vulva and vagina, cervix and uterine body are absent surgically, there is no palpable mass in the left adnexa) Bimanual exam: Present: left adnexal tenderness, other (Normal vulva and vagina, cervix and uterus body are absent surgically, left adnexal tenderness with no palpable masses. ). Absent: cervical motion tenderness, right adnexal tenderness, adnexal mass, right adnexal mass - Extremities Exam Extremities exam: Present: normal inspection, full ROM, normal capillary refill. Absent: calf tenderness - Back Exam Back exam: Present: normal inspection, CVA tenderness (L). Absent: tenderness, CVA tenderness (R) - Neurological Exam Neurological exam: Present: alert, oriented X3, CN II-XII intact, motor sensory deficit, reflexes normal - Psychiatric Psychiatric exam: Present: normal affect, normal mood - Skin Skin exam: Present: warm, dry, intact, normal color - Lymphatic Lymphatic Findings: no adenopathy
[2019-02-18 17:21] LABS: Appearance,Urine SL CLOUDY (Clear); Bilirubin,Urine Negative (Negative); Blood, Urine Negative (Negative); Color,Urine YELLOW (Yellow); Glucose,Urine (UA) 3+ (Negative); Ketones,Urine Negative (Negative); Leukocyte Esterase,Urine Negative (Negative); Microscopic, Urine URINE MICROSCOPIC (MICROSCOPIC); Protein,Urine TRACE (Negative); Specific Gravity, Urine 1.025 (1.005-1.030); Urobilinogen,Urine 0.2 EU/dl (0.2)
[2019-02-18 17:36] LABS: Bacteria,Urine Trace /lpf; WBC,Urine Occasional #/hpf (0-3)
[2019-02-18 17:51] LABS: Basophils # 0.1 K/mm3 (0-0.2); Basophils % 0.8 % (0.1-2.0); Eosinophils # 0.1 K/mm3 (0.0-0.4); Eosinophils % 0.8 % (0.1-12.0); Hematocrit 35.8 % (37.0-47.0); Hemoglobin 11.2 g/dL (12.2-16.2); Lymphocytes # 1.4 K/mm3 (0.7-4.5); Lymphocytes % 24.5 % (10-50); Mean Corpuscular HGB Conc 31.2 g/dL (31.8-35.4); Mean Corpuscular Hemoglobin 25.4 pg (27.0-31.2); Mean Corpuscular Volume 81.3 fl (81-99); Mean Platelet Volume 8.8 fl (7.4-10.4); Monocytes # 0.2 K/mm3 (0.1-1.0); Monocytes % 4.1 % (1.7-9.3); Neutrophils % 69.7 % (37.0-80.0); Platelet Count 240 K/mm3 (142-424); Red Cell Distribution Width 15.5 % (11.5-17.5); White Blood Count 5.7 K/mm3 (4.8-10.8)
[2019-02-18 18:03] LABS: Albumin Level 3.2 gm/dL (3.4-5.0); Albumin/Globulin Ratio 0.7 (1.1-1.8); Anion Gap 15.2 mEq/L (5-15); Bilirubin,Total 0.2 mg/dL (0.2-1.0); Calcium 9.3 mg/dL (8.5-10.1); Globulin 4.5 gm/dl (1.3-3.2); Potassium 4.2 mmoL/L (3.5-5.1); Total Protein,Serum 7.7 gm/dL (6.4-8.2)
[2019-02-18 18:49] LABS: VBG Base Excess -3.6 mmol/L (-2.4-2.3); VBG HCO3 21.8 mmol/L (23-30); VBG Oxygen Saturation 90.9 % (50-70); VBG PCO2 39.2 mmol/L (35-51); VBG PH 7.36 mmol/L (7.31-7.41)
[2019-02-18 20:10] LABS: Anion Gap 14.5 mEq/L (5-15); Potassium 4.5 mmoL/L (3.5-5.1)
[2019-02-19 07:16] VITALS: BP 134/81
[2019-02-19 07:41] LABS: Basophils % 0.7 % (0.1-2.0); Eosinophils # 0.1 K/mm3 (0.0-0.4); Eosinophils % 1.8 % (0.1-12.0); Hematocrit 31.7 % (37.0-47.0); Hemoglobin 10.2 g/dL (12.2-16.2); Lymphocytes # 2.3 K/mm3 (0.7-4.5); Lymphocytes % 44.3 % (10-50); Mean Corpuscular HGB Conc 32.1 g/dL (31.8-35.4); Mean Corpuscular Hemoglobin 25.7 pg (27.0-31.2); Mean Corpuscular Volume 79.9 fl (81-99); Mean Platelet Volume 8.8 fl (7.4-10.4); Monocytes # 0.2 K/mm3 (0.1-1.0); Monocytes % 4.6 % (1.7-9.3); Neutrophils # 2.5 K/mm3 (1.8-7.8); Neutrophils % 48.7 % (37.0-80.0); Platelet Count 230 K/mm3 (142-424); Red Blood Count 3.97 M/mm3 (4.20-5.40); Red Cell Distribution Width 15.7 % (11.5-17.5); White Blood Count 5.2 K/mm3 (4.8-10.8)
[2019-02-19 07:54] LABS: Anion Gap 11.8 mEq/L (5-15); Calcium 8.1 mg/dL (8.5-10.1); Potassium 3.8 mmoL/L (3.5-5.1)
--- NOTE | 2019-02-19 14:30 | H&P/Discharge Summary ---
General - General Admission date:: 02/18/19 Discharge date: 02/19/19 *Admission Date: 02/18/19 *Chief complaint: abdominal pain *History of present illness: Ms. Bolton is a 28-year-old female well-known to our practice with history of uncontrolled diabetes. She presented to the ER yesterday with acute onset of abdominal pain while playing video games. She states her abdominal pain was very sharp, present in the left lower quadrant and spread across the lower portion of her abdomen. She denies any nausea or vomiting, fevers, shortness of breath, dysuria. Did have a single episode of loose stool Wednesday but no bowel movements yesterday on day of presentation. Of note she recently completed antibiotics for a C. difficile infection. CAT scan of her abdomen was obtained showing diffuse stool burden throughout digestive tract. Patient was admitted for fluid management, pain control. Of note had normal electrolytes, kidney function, lab work. Glucose elevated on presentation, however no signs of DKA H History I have reviewed the patient's past medical history: Yes Medical History: Reports:: Arrhythmia, Deep Vein Thrombosis, Depression, Diabetes Mellitus Type 1, MRSA, Palpitations, Pulmonary Embolism, Seizures Denies:: Cancer, Diabetes Mellitus Type 2 *Have you ever received a pneumonia vaccine?: Yes *Have you received a flu vaccine this season?: No Other Medical History: Reports: Anemia, Other. Denies: Blood Transfusion Reaction Other Surgeries: Yes: Appendectomy, Cholecystectomy, Dilation and Curettage, Hysterectomy-Partial ("everything but left ovary"), Tubal Ligation, Other (ablation) Amputation: No Fractures: No - *Social History Educational Level: Completed High School Smoking Status: Former smoker Tobacco Type: cigarettes # Packs/Day (cigarettes): 1 #Yrs smoked (if former smoker): 4 Alcohol Intake: never Alcohol Intake Frequency:: holidays/special occasions only Substance Use Type: former substance user *Occupational Status:: disabled Housing: apartment Household Members: significant other *Travel in the last 8 weeks: None - Psychiatric History Expresses thoughts of harming self/others: None Suicide Plan Description: No Plan Pschychiatric History:: Reports:: Depression Family Hx:: Anemia, Asthma, Cancer, Diabetes, Heart Attack, Hyperlipidemia, Hypertension, Kidney Disease, Stroke, Thyroid Disorder Review of Systems - Review of Systems Review of systems:: pertinent systems reviewed and negative unless documented below Exam Vital signs and Labs for Last 24 Hours: Temp Pulse Resp BP Pulse Ox 97.7 F 76 17 134/81 98 02/19/19 07:15 02/19/19 07:15 02/19/19 07:15 02/19/19 07:15 02/19/19 08:00 Laboratory Results - last 24 hr 02/18/19 17:02: POC Glucose 416 H* 02/18/19 17:07: Urine Color Yellow, Urine Appearance Sl cloudy, Urine pH 6.0, Ur Specific [place] 1.025, Urine Protein Trace, Urine Glucose (UA) 3+, Urine Ketones Negative, Urine Blood Negative, Urine Nitrate Negative, Urine Bilirubin Negative, Urine Urobilinogen 0.2, Ur Leukocyte Esterase Negative, Urine WBC Occasional, Ur Squamous Epith Cells 5-10, Urine Bacteria Trace 02/18/19 17:30: WBC 5.7, RBC 4.40, Hgb 11.2 L, Hct 35.8 L, MCV 81.3, MCH 25.4 L, MCHC 31.2 L, RDW 15.5, Plt Count 240, MPV 8.8, Neut % (Auto) 69.7, Lymph % (Auto) 24.5, Will % (Auto) 4.1, Eos % (Auto) 0.8, Baso % (Auto) 0.8, Neut # (Auto) 4.0, Lymph # (Auto) 1.4, Will # (Auto) 0.2, Eos # (Auto) 0.1, Baso # (Auto) 0.1 02/18/19 17:30: Sodium 135 L, Potassium 4.2, Chloride 98, Carbon Dioxide 26, Anion Gap 15.2 H, BUN 14, Creatinine 0.93, Estimated Creat Clear 120, Estimated GFR 72, Est GFR ( Amer) 88, Glucose 462 H*, Calcium 9.3, Total Bilirubin 0.2, AST 29, ALT 48, Alkaline Phosphatase 178 H, Lactate Dehydrogenase 145, Total Protein 7.7, Albumin 3.2 L, Globulin 4.5 H, Albumin/Globulin Ratio 0.7 L, Lipase 201 02/18/19 17:30: Lactate 2.7 H 02/18/19 17:30: Magnesium 1.6, Lactate Dehydrogenase 152 02/18/19 17:30: Acetone Level None detected 02/18/19 18:48: VBG pH 7.36, VBG pCO2 39.2, VBG pO2 65.0 H, VBG HCO3 21.8 L, VBG Total CO2 23.0, VBG O2 Saturation 90.9 H, VBG Base Excess -3.6 L 02/18/19 19:40: Sodium 133 L, Potassium 4.5, Chloride 97 L, Carbon Dioxide 26, Anion Gap 14.5, BUN 13, Creatinine 0.88, Estimated Creat Clear 127, Estimated GFR 77, Est GFR ( Amer) 93, Glucose 439 H*, Calcium 9.0 02/18/19 19:40: Lactate 3.3 H 02/18/19 22:01: POC Glucose 261 H 02/18/19 22:05: Lactate 1.3 02/19/19 03:18: POC Glucose 64 L 02/19/19 06:02: POC Glucose 164 H 02/19/19 07:27: WBC 5.2, RBC 3.97 L, Hgb 10.2 L, Hct 31.7 L, MCV 79.9 L, MCH 25.7 L, MCHC 32.1, RDW 15.7, Plt Count 230, MPV 8.8, Neut % (Auto) 48.7, Lymph % (Auto) 44.3, [place] % (Auto) 4.6, Eos % (Auto) 1.8, Baso % (Auto) 0.7, Neut # (Auto) 2.5, Lymph # (Auto) 2.3, Will # (Auto) 0.2, Eos # (Auto) 0.1, Baso # (Auto) 0.0 02/19/19 07:27: Sodium 140, Potassium 3.8, Chloride 105, Carbon Dioxide 27, Anion Gap 11.8, BUN 12, Creatinine 0.57 D, Estimated Creat Clear 199, Estimated GFR 127, Est GFR ( Amer) 154 D, Glucose 114 H D, Calcium 8.1 L, Magnesium 1.6 02/19/19 07:27: Lactate 0.9 02/19/19 11:01: POC Glucose 64 L I & O for Last 24 hours: Intake & Output 02/16/19 02/17/19 02/18/19 02/19/19 23:59 23:59 23:59 23:59 Intake Total 1000 / 1000 600 / 600 Balance 1000 / 1000 600 / 600 Weight 84.907 kg - *Routine HEENT Exam Head: Present: normocephalic Eye: Present: EOMI, PERRL ENT: Present: mucous membranes moist Comments: Blind right eye, chronic - *Routine Neck Exam Present: supple. Absent: lymphadenopathy - *Routine Respiratory Exam Present: CTA bilaterally - *Routine Cardiovascular Exam Present: RRR - *Routine Abdominal Exam Present: soft, normoactive bowel sounds, tenderness (Diffuse) - *Routine Extremities Exam Absent: cyanosis, clubbing, edema - *Routine Skin Exam Present: warm. Absent: rash - *Routine Neurological Exam Present: alert, oriented X3 Hospital Course Hospital Course: Admitted for pain control and IV fluids. Monitor overnight. Symptoms improved throughout the night however had some recurrence in the morning abdominal pain. Further questioning elicited the pain would wax and wane. As patient had significant stool burden on imaging, and given enema. Had 3 large bowel movements with improvement in her pain. Tolerating p.o. intake including fluids. On discharge patient's insulin regimen was adjusted as she states she is having better control since starting metformin. Medically stable for discharge home. Results Labs on day of discharge: Labs from last 24 hours 02/19/19 02/19/19 02/19/19 11:01 07:27 07:27 WBC RBC Hgb Hct MCV MCH MCHC RDW Plt Count MPV Neut % (Auto) Lymph % (Auto) Will % (Auto) Eos % (Auto) Baso % (Auto) Neut # (Auto) Lymph # (Auto) Will # (Auto) Eos # (Auto) Baso # (Auto) VBG pH VBG pCO2 VBG pO2 VBG HCO3 VBG Total CO2 VBG O2 Saturation VBG Base Excess Sodium 140 Potassium 3.8 Chloride 105 Carbon Dioxide 27 Anion Gap 11.8 BUN 12 Creatinine 0.57 D Estimated Creat Clear 199 Estimated GFR 127 Est GFR ( Amer) 154 D Glucose 114 H D POC Glucose 64 L Lactate 0.9 Calcium 8.1 L Magnesium 1.6 Total Bilirubin AST ALT Alkaline Phosphatase Lactate Dehydrogenase Total Protein Albumin Globulin Albumin/Globulin Ratio Lipase Urine Color Urine Appearance Urine pH Ur Specific [place] Urine Protein Urine Glucose (UA) Urine Ketones Urine Blood Urine Nitrate Urine Bilirubin Urine Urobilinogen Ur Leukocyte Esterase Urine WBC Ur Squamous Epith Cells Urine Bacteria Acetone Level 02/19/19 02/19/19 02/19/19 07:27 06:02 03:18 WBC 5.2 RBC 3.97 L Hgb 10.2 L Hct 31.7 L MCV 79.9 L MCH 25.7 L MCHC 32.1 RDW 15.7 Plt Count 230 MPV 8.8 Neut % (Auto) 48.7 Lymph % (Auto) 44.3 Will % (Auto) 4.6 Eos % (Auto) 1.8 Baso % (Auto) 0.7 Neut # (Auto) 2.5 Lymph # (Auto) 2.3 Will # (Auto) 0.2 Eos # (Auto) 0.1 Baso # (Auto) 0.0 VBG pH VBG pCO2 VBG pO2 VBG HCO3 VBG Total CO2 VBG O2 Saturation VBG Base Excess Sodium Potassium Chloride Carbon Dioxide Anion Gap BUN Creatinine Estimated Creat Clear Estimated GFR Est GFR ( Amer) Glucose POC Glucose 164 H 64 L Lactate Calcium Magnesium Total Bilirubin AST ALT Alkaline Phosphatase Lactate Dehydrogenase Total Protein Albumin Globulin Albumin/Globulin Ratio Lipase Urine Color Urine Appearance Urine pH Ur Specific [place] Urine Protein Urine Glucose (UA) Urine Ketones Urine Blood Urine Nitrate Urine Bilirubin Urine Urobilinogen Ur Leukocyte Esterase Urine WBC Ur Squamous Epith Cells Urine Bacteria Acetone Level 02/18/19 02/18/19 02/18/19 22:05 22:01 19:40 WBC RBC Hgb Hct MCV MCH MCHC RDW Plt Count MPV Neut % (Auto) Lymph % (Auto) Will % (Auto) Eos % (Auto) Baso % (Auto) Neut # (Auto) Lymph # (Auto) Will # (Auto) Eos # (Auto) Baso # (Auto) VBG pH VBG pCO2 VBG pO2 VBG HCO3 VBG Total CO2 VBG O2 Saturation VBG Base Excess Sodium Potassium Chloride Carbon Dioxide Anion Gap BUN Creatinine Estimated Creat Clear Estimated GFR Est GFR ( Amer) Glucose POC Glucose 261 H Lactate 1.3 3.3 H Calcium Magnesium Total Bilirubin AST ALT Alkaline Phosphatase Lactate Dehydrogenase Total Protein Albumin Globulin Albumin/Globulin Ratio Lipase Urine Color Urine Appearance Urine pH Ur Specific [place] Urine Protein Urine Glucose (UA) Urine Ketones Urine Blood Urine Nitrate Urine Bilirubin Urine Urobilinogen Ur Leukocyte Esterase Urine WBC Ur Squamous Epith Cells Urine Bacteria Acetone Level 02/18/19 02/18/19 02/18/19 19:40 18:48 17:30 WBC RBC Hgb Hct MCV MCH MCHC RDW Plt Count MPV Neut % (Auto) Lymph % (Auto) Will % (Auto) Eos % (Auto) Baso % (Auto) Neut # (Auto) Lymph # (Auto) Will # (Auto) Eos # (Auto) Baso # (Auto) VBG pH 7.36 VBG pCO2 39.2 VBG pO2 65.0 H VBG HCO3 21.8 L VBG Total CO2 23.0 VBG O2 Saturation 90.9 H VBG Base Excess -3.6 L Sodium 133 L Potassium 4.5 Chloride 97 L Carbon Dioxide 26 Anion Gap 14.5 BUN 13 Creatinine 0.88 Estimated Creat Clear 127 Estimated GFR 77 Est GFR ( Amer) 93 Glucose 439 H* POC Glucose Lactate Calcium 9.0 Magnesium Total Bilirubin AST ALT Alkaline Phosphatase Lactate Dehydrogenase Total Protein Albumin Globulin Albumin/Globulin Ratio Lipase Urine Color Urine Appearance Urine pH Ur Specific [place] Urine Protein Urine Glucose (UA) Urine Ketones Urine Blood Urine Nitrate Urine Bilirubin Urine Urobilinogen Ur Leukocyte Esterase Urine WBC Ur Squamous Epith Cells Urine Bacteria Acetone Level None detected 02/18/19 02/18/19 02/18/19 17:30 17:30 17:30 WBC RBC Hgb Hct MCV MCH MCHC RDW Plt Count MPV Neut % (Auto) Lymph % (Auto) Will % (Auto) Eos % (Auto) Baso % (Auto) Neut # (Auto) Lymph # (Auto) Will # (Auto) Eos # (Auto) Baso # (Auto) VBG pH VBG pCO2 VBG pO2 VBG HCO3 VBG Total CO2 VBG O2 Saturation VBG Base Excess Sodium 135 L Potassium 4.2 Chloride 98 Carbon Dioxide 26 Anion Gap 15.2 H BUN 14 Creatinine 0.93 Estimated Creat Clear 120 Estimated GFR 72 Est GFR ( Amer) 88 Glucose 462 H* POC Glucose Lactate 2.7 H Calcium 9.3 Magnesium 1.6 Total Bilirubin 0.2 AST 29 ALT 48 Alkaline Phosphatase 178 H Lactate Dehydrogenase 152 145 Total Protein 7.7 Albumin 3.2 L Globulin 4.5 H Albumin/Globulin Ratio 0.7 L Lipase 201 Urine Color Urine Appearance Urine pH Ur Specific [place] Urine Protein Urine Glucose (UA) Urine Ketones Urine Blood Urine Nitrate Urine Bilirubin Urine Urobilinogen Ur Leukocyte Esterase Urine WBC Ur Squamous Epith Cells Urine Bacteria Acetone Level 02/18/19 02/18/19 02/18/19 17:30 17:07 17:02 WBC 5.7 RBC 4.40 Hgb 11.2 L Hct 35.8 L MCV 81.3 MCH 25.4 L MCHC 31.2 L RDW 15.5 Plt Count 240 MPV 8.8 Neut % (Auto) 69.7 Lymph % (Auto) 24.5 Will % (Auto) 4.1 Eos % (Auto) 0.8 Baso % (Auto) 0.8 Neut # (Auto) 4.0 Lymph # (Auto) 1.4 Will # (Auto) 0.2 Eos # (Auto) 0.1 Baso # (Auto) 0.1 VBG pH VBG pCO2 VBG pO2 VBG HCO3 VBG Total CO2 VBG O2 Saturation VBG Base Excess Sodium Potassium Chloride Carbon Dioxide Anion Gap BUN Creatinine Estimated Creat Clear Estimated GFR Est GFR ( Amer) Glucose POC Glucose 416 H* Lactate Calcium Magnesium Total Bilirubin AST ALT Alkaline Phosphatase Lactate Dehydrogenase Total Protein Albumin Globulin Albumin/Globulin Ratio Lipase Urine Color Yellow Urine Appearance Sl cloudy Urine pH 6.0 Ur Specific [place] 1.025 Urine Protein Trace Urine Glucose (UA) 3+ Urine Ketones Negative Urine Blood Negative Urine Nitrate Negative Urine Bilirubin Negative Urine Urobilinogen 0.2 Ur Leukocyte Esterase Negative Urine WBC Occasional Ur Squamous Epith Cells 5-10 Urine Bacteria Trace Acetone Level DS: Diagnosis - Discharge Diagnosis (1) IDDM (insulin dependent diabetes mellitus) Status: Chronic (2) Ileus Status: Acute (3) Hx of absence seizures Status: Chronic (4) Hyperglycemia Status: Acute (5) Abdominal pain Status: Resolved Problem details: Clear due to hyperemia in the setting of type 1 diabetes as well as results of patient's recent hysterectomy and bleeding. Soft. Discharge Medications - Medications for Discharge Home Medication List at Discharge: Continue levetiracetam 500 mg tablet 2,500 mg PO BID #60 tab Apixaban [Eliquis] 5 mg PO BID #60 tab OXcarbazepine [Trileptal 300mg tablet] 1,200 mg PO BID Methocarbamol [Methocarbamol 500mg Tablet] 500 mg PO Q8HP PRN PRN Reason: MUSCLE SPASMS Ondansetron HCl [Zofran 4mg Tab] 4 mg PO QIDP PRN #15 tab PRN Reason: Nausea Venlafaxine HCl [Effexor 37.5mg tablet] 37.5 mg PO DAILY Melatonin 10 mg PO HS Gabapentin [Gabapentin 100mg Cap] 100 mg PO TID Baclofen [Lioresal 10mg tablet] 10 mg PO BID Omeprazole [Omeprazole 20mg Capsule] 20 mg PO DAILY Changed Insulin Lispro [Humalog Kwikpen U-100] 25 unit SUB-Q AC #0 Insulin Glargine,Hum.rec.anlog [Basaglar Kwikpen U-100] 50 unit SQ HS #0 Disposition Disposition: Home, Self-Care
== END 2019-02-19 14:50 | disposition home or self-care (01) ==
LOC: 2ND 16:55 → ER 16:55 → 2ND 21:56
PROVIDERS: ADMIT Internal Medicine Adolescent Medicine; ATTEND Internal Medicine Adolescent Medicine
CPT/HCPCS: 36415; 74178; 80048; 80053; 81001; 82009; 82803; 82962; 83605; 83615; 83690; 83735; 85025; 96365; 96375; 99284; G0378; Q9967

== ENCOUNTER → 2019-02-24 11:23 | Outpatient (CLI) | payer MEDICAID, SELFPAY ==
--- NOTE | 2019-02-24 11:29 | XR_ITS ---
XR abdomen min 2V HISTORY: ITS.REASON: GENERALIZED ABDOMINAL PAIN ORDERING PHYSICIAN: Srini Ayala MD PATIENT AGE: 28 years COMPARISON: None FINDINGS: There is a mild amount of retained colonic feces. There are surgical clips in the right upper quadrant and pelvis. No intestinal obstruction or free air. No abnormal calcifications or acute bony anomalies. IMPRESSION: Mild amount of retained colonic feces
== END ==
PROVIDERS: PCP Internal Medicine Adolescent Medicine; Visit Provider Internal Medicine Adolescent Medicine
DX: R10.84 Generalized abdominal pain (principal)
CPT/HCPCS: 74019

== ENCOUNTER → 2019-02-25 09:00 | Outpatient (CLI) | payer MEDICAID, SELFPAY ==
[2019-02-27 10:41] LABS: Adenovirus F 40/41, stool Not Detected (NotDetected); Astrovirus Not Detected (NotDetected); Campylobacter Not Detected (NotDetected); Clostridium Difficile A/B, PCR Not Detected (NotDetected); Cryptosporidium Not Detected (NotDetected); Cyclospora Cayetanesis Not Detected (NotDetected); Entamoeba histolytica Not Detected (NotDetected); Enteroaggregative E coli Not Detected (NotDetected); Enteropathogenic E coli Not Detected (NotDetected); Enterotoxigenic E coli Not Detected (NotDetected); Giardia lamblia Not Detected (NotDetected); Norovirus Not Detected (NotDetected); Plesimonas Shigalloides, PCR Not Detected (NotDetected); Rotavirus A Not Detected (NotDetected); Salmonella, PCR Not Detected (NotDetected); Sapovirus Not Detected (NotDetected); Shiga-like toxin E coli Not Detected (NotDetected); Shigella Enterovasive E coli Not Detected (NotDetected); Vibrio Cholerae Not Detected (NotDetected); Vibrio, PCR Not Detected (NotDetected); Yersinia Entercolitica, PCR Not Detected (NotDetected)
== END ==
PROVIDERS: Visit Provider Internal Medicine Adolescent Medicine
DX: R19.7 Diarrhea, unspecified (principal)
CPT/HCPCS: 87507

== ENCOUNTER 2019-04-01 00:44 | Emergency (ER) | payer MEDICAID, SELFPAY ==
[2019-04-01 00:45] VITALS: BP 137/89; PULSE 82; RESP 16; TEMP 36.9; O2SAT 100; BMI 32.8
--- NOTE | 2019-04-01 00:48 | XR_ITS ---
XR chest 2V HISTORY: ITS.REASON: chest pain ORDERING PHYSICIAN: Jorge Luis Almaguer MD PATIENT AGE: 29 years COMPARISON: 03/05/2019 FINDINGS: The cardiomediastinal silhouette and pulmonary vascularity are within normal limits. Mediport catheter present via the right IJ approach. Pain nodularity is noted in the right mid to upper lung zone laterally not readily apparent on the previous study with 3 small nodular opacities in the fifth interspace posteriorly and laterally measuring up to 7 mm. The remaining lungs are clear. No acute bony findings. IMPRESSION: Nonspecific 3 faint nodular opacities in the right midlung. Possibly related to artifact. Suggest follow-up chest x-ray for confirmation and if persistent, chest CT may be of further value. Otherwise negative
--- NOTE | 2019-04-01 00:56 | [facility].EDCP ---
ED Disposition Clinical Impression: Chest pain, atypical, IDDM (insulin dependent diabetes mellitus) Disposition: Home, Self-Care Condition on Discharge: Good Instructions: DI for Atypical Chest Pain Prescriptions: Metoclopramide HCl [Reglan 5mg Tablet] 5 mg PO TID 7 Days #20 tab Referrals: Provider,Referral, [Primary Care Provider] - Time of Disposition: 03:33 - Critical Care Critical Care Time: No Attestation: On , the high probability of a clinically significant, sudden or life threatening deterioration of the following system(s) required my full and direct attention, intervention and personal management. The time I documented below is in addition to time spent performing reported procedures but includes the following listed in this critical care notation. Medical Decision Making - Medical Records Medical records reviewed: Yes: I reviewed the patient's medical records. - Jamari Inquiry Pt receiving controlled substance: No Jamari was queried for this patient: No Vital Signs: 04/01/19 00:45 04/01/19 01:25 04/01/19 02:09 Temperature 98.5 F Temperature Source Oral Pulse Rate [Right Brachial] 82 87 72 Respiratory Rate 16 16 18 Blood Pressure [Right Arm] 137/89 116/90 131/77 Blood Pressure Mean [Right Arm] 105 98 95 Blood Pressure Source [Right Arm] Automatic Cuff Automatic Cuff Automatic Cuff Blood Pressure Position [Right Arm] Sitting Sitting Sitting 02 Sat by Pulse Oximetry 100 99 99 Oxygen Delivery Method Room Air Room Air - Lab Data Lab results reviewed: Yes: I reviewed the patient's lab results. Lab Results 04/01/19 00:50: D-Dimer 377 04/01/19 00:50: Lipase 281 04/01/19 00:58: WBC 7.2, RBC 4.29, Hgb 11.1 L, Hct 32.7 L, MCV 76.1 L, MCH 25.9 L, MCHC 34.0, RDW 14.2, Plt Count 264, MPV 8.7, Neut % (Auto) 65.8, Lymph % (Auto) 28.7, [place] % (Auto) 4.3, Eos % (Auto) 0.8, Baso % (Auto) 0.4, Neut # (Auto) 4.8, Lymph # (Auto) 2.1, [place] # (Auto) 0.3, Eos # (Auto) 0.1, Baso # (Auto) 0.0 04/01/19 00:58: Sodium 131 L, Potassium 3.4 L, Chloride 97 L, Carbon Dioxide 24, Anion Gap 13.4, BUN 13, Creatinine 0.67, Estimated Creat Clear 166, Estimated GFR 105, Est GFR ( Amer) 127, Glucose 195 H, Calcium 9.1, Troponin I < 0.02 Result diagrams: 04/01/19 00:58 04/01/19 00:58 Orders (Tests/Meds): ED MEDICATIONS Discontinued Medications Generic Name Dose Route Start Last Admin Trade Name Sarah PRN Reason Stop Dose Admin Metoclopramide HCl 5 mg 04/01/19 02:30 04/01/19 03:04 Reglan 10mg/2ml Vial IVP 04/01/19 02:31 5 mg ONCE ONE Administration Morphine Sulfate 2 mg 04/01/19 02:30 04/01/19 03:04 Morphine 2mg/Ml Syringe IV 04/01/19 02:31 2 mg ONCE ONE Administration ORDERS Category Date Time Status XR chest 2V Stat Exams 04/01/19 00:48 Taken Trop I [Troponin I] Stat Lab 04/01/19 02:40 Received EKG Request [ECG Request by /Feliciano] Stat Y 04/01/19 00:48 Ordered - Radiology Data #1 Image(s): Chest Image Reviewed: Yes I reviewed the patient's radiology results Preliminary Findings: Normal/NAD Chest Pain HPI - General Chief Complaint: Chest Pain Stated Complaint: Chest pain Time Seen by Provider: 04/01/19 00:56 Mode of Arrival: Ambulatory Source of Information: Patient Limitations: No Limitations Description of Symptoms (Recalled from ER Triage Doc. by RN): Pt c/o chest pains that hurts when she takes a breath and pain going down into her right arm - Related Data Home Medications Medication Instructions Recorded Confirmed Venlafaxine HCl [Effexor 37.5mg 37.5 mg PO DAILY 04/05/18 02/18/19 tablet] Melatonin 10 mg PO HS 11/03/18 02/18/19 OXcarbazepine [Trileptal 300mg 1,200 mg PO BID 11/03/18 02/18/19 tablet] Gabapentin [Gabapentin 100mg Cap] 100 mg PO TID 11/04/18 02/18/19 Methocarbamol [Methocarbamol 500mg 500 mg PO Q8HP PRN 11/09/18 02/18/19 Tablet] Baclofen [Lioresal 10mg tablet] 10 mg PO BID 12/06/18 02/18/19 Omeprazole [Omep
--- NOTE | 2019-04-01 01:04 | ED_ITS ---
ED Disposition Clinical Impression: Chest pain, atypical, IDDM (insulin dependent diabetes mellitus) Disposition: Home, Self-Care Condition on Discharge: Good Instructions: DI for Atypical Chest Pain Prescriptions: Metoclopramide HCl [Reglan 5mg Tablet] 5 mg PO TID 7 Days #20 tab Referrals: Provider,Referral, [Primary Care Provider] - Time of Disposition: 03:33 - Critical Care Critical Care Time: No Attestation: On , the high probability of a clinically significant, sudden or life threatening deterioration of the following system(s) required my full and direct attention, intervention and personal management. The time I documented below is in addition to time spent performing reported procedures but includes the following listed in this critical care notation. Medical Decision Making - Medical Records Medical records reviewed: Yes: I reviewed the patient's medical records. - Jamari Inquiry Pt receiving controlled substance: No Jamari was queried for this patient: No Vital Signs: 04/01/19 00:45 04/01/19 01:25 04/01/19 02:09 Temperature 98.5 F Temperature Source Oral Pulse Rate [Right Brachial] 82 87 72 Respiratory Rate 16 16 18 Blood Pressure [Right Arm] 137/89 116/90 131/77 Blood Pressure Mean [Right Arm] 105 98 95 Blood Pressure Source [Right Arm] Automatic Cuff Automatic Cuff Automatic Cuff Blood Pressure Position [Right Arm] Sitting Sitting Sitting 02 Sat by Pulse Oximetry 100 99 99 Oxygen Delivery Method Room Air Room Air - Lab Data Lab results reviewed: Yes: I reviewed the patient's lab results. Lab Results 04/01/19 00:50: D-Dimer 377 04/01/19 00:50: Lipase 281 04/01/19 00:58: WBC 7.2, RBC 4.29, Hgb 11.1 L, Hct 32.7 L, MCV 76.1 L, MCH 25.9 L, MCHC 34.0, RDW 14.2, Plt Count 264, MPV 8.7, Neut % (Auto) 65.8, Lymph % (Auto) 28.7, [place] % (Auto) 4.3, Eos % (Auto) 0.8, Baso % (Auto) 0.4, Neut # (Auto) 4.8, Lymph # (Auto) 2.1, [place] # (Auto) 0.3, Eos # (Auto) 0.1, Baso # (Auto) 0.0 04/01/19 00:58: Sodium 131 L, Potassium 3.4 L, Chloride 97 L, Carbon Dioxide 24, Anion Gap 13.4, BUN 13, Creatinine 0.67, Estimated Creat Clear 166, Estimated GFR 105, Est GFR ( Amer) 127, Glucose 195 H, Calcium 9.1, Troponin I < 0.02 Result diagrams: 04/01/19 00:58 04/01/19 00:58 Orders (Tests/Meds): ED MEDICATIONS Discontinued Medications Generic Name Dose Route Start Last Admin Trade Name Freq PRN Reason Stop Dose Admin Metoclopramide HCl 5 mg 04/01/19 02:30 04/01/19 03:04 Reglan 10mg/2ml Vial IVP 04/01/19 02:31 5 mg ONCE ONE Administration Morphine Sulfate 2 mg 04/01/19 02:30 04/01/19 03:04 Morphine 2mg/Ml Syringe IV 04/01/19 02:31 2 mg ONCE ONE Administration ORDERS Category Date Time Status XR chest 2V Stat Exams 04/01/19 00:48 Taken Trop I [Troponin I] Stat Lab 04/01/19 02:40 Received EKG Request [ECG Request by /Feliciano] Stat Y 04/01/19 00:48 Ordered - Radiology Data #1 Image(s): Chest Image Reviewed: Yes I reviewed the patient's radiology results Preliminary Findings: Normal/NAD Chest Pain HPI - General Chief Complai
[2019-04-01 01:11] LABS: Basophils % 0.4 % (0.1-2.0); Eosinophils # 0.1 K/mm3 (0.0-0.4); Eosinophils % 0.8 % (0.1-12.0); Hematocrit 32.7 % (37.0-47.0); Hemoglobin 11.1 g/dL (12.2-16.2); Lymphocytes # 2.1 K/mm3 (0.7-4.5); Lymphocytes % 28.7 % (10-50); Mean Corpuscular Hemoglobin 25.9 pg (27.0-31.2); Mean Corpuscular Volume 76.1 fl (81-99); Mean Platelet Volume 8.7 fl (7.4-10.4); Monocytes # 0.3 K/mm3 (0.1-1.0); Monocytes % 4.3 % (1.7-9.3); Neutrophils # 4.8 K/mm3 (1.8-7.8); Neutrophils % 65.8 % (37.0-80.0); Platelet Count 264 K/mm3 (142-424); Red Blood Count 4.29 M/mm3 (4.20-5.40); Red Cell Distribution Width 14.2 % (11.5-17.5); White Blood Count 7.2 K/mm3 (4.8-10.8)
[2019-04-01 01:25] VITALS: BP 116/90; PULSE 87; RESP 16; O2SAT 99
[2019-04-01 01:28] LABS: Anion Gap 13.4 mEq/L (5-15); Blood Urea Nitrogen 13 mg/dL (7-18); Calcium 9.1 mg/dL (8.5-10.1); Carbon Dioxide 24 mmol/L (21.0-32.0); Chloride 97 mmol/L (98-107); Creatinine Clearance Estimated 166 mL/min (50-200); Creatinine,Serum 0.67 mg/dL (0.55-1.02); Estimated Glomerular Filt Rate 105 ml/min (>60); GFR (African American) 127 ML/MIN (>60); Glucose 195 mg/dL (74-106); Potassium 3.4 mmoL/L (3.5-5.1); Sodium 131 mmol/L (136-145); Troponin I < 0.02 ng/ml (0.00-0.06)
[2019-04-01 02:09] VITALS: BP 131/77; PULSE 72; RESP 18; O2SAT 99
[2019-04-01 03:00] LABS: Lipase 281 u/L (73-393)
[2019-04-01 03:04] LABS: D-Dimer 377 ng/mL (0-400)
[2019-04-01 03:08] LABS: Troponin I < 0.02 ng/ml (0.00-0.06)
[2019-04-01 04:09] VITALS: BP 130/70; PULSE 65; RESP 16; TEMP 36.8; O2SAT 98
== END 2019-04-01 04:09 | disposition home or self-care (01) ==
PROVIDERS: Emergency Provider Emergency Medicine
DX: R07.89 Other chest pain (principal); E10.65 Type 1 diabetes mellitus with hyperglycemia; Z79.4 Long term (current) use of insulin; Z51.81 Encounter for therapeutic drug level monitoring; F33.1 Major depressive disorder, recurrent, moderate; D64.9 Anemia, unspecified; Z87.891 Personal history of nicotine dependence
CPT/HCPCS: 71046; 80048; 83690; 84484; 85025; 85378; 93005; 96374; 96375; 99283

== ENCOUNTER 2019-06-11 21:08 | Inpatient (IN) ==
--- NOTE | 2019-06-11 21:14 | Emergency Department Note ---
ED Disposition Clinical Impression: Type 1 diabetes mellitus with hyperglycemia, Dehydration, Gastroenteritis Disposition: Admitted as Observation Condition on Discharge: Fair (Stable) Time of Disposition: 23:11 - Critical Care Critical Care Time: No Attestation: On , the high probability of a clinically significant, sudden or life threatening deterioration of the following system(s) required my full and direct attention, intervention and personal management. The time I documented below is in addition to time spent performing reported procedures but includes the following listed in this critical care notation. Medical Decision Making - Medical Records Medical records reviewed: Yes: I reviewed the patient's medical records. - Jamari Inquiry Pt receiving controlled substance: No Jamari was queried for this patient: No Vital Signs: 06/11/19 21:07 06/11/19 21:14 Temperature 98.0 F 98.0 F Temperature Source Oral Oral Pulse Rate [Right Brachial] 133 H 133 H Respiratory Rate 26 H 26 H Blood Pressure [Right Arm] 145/74 H 145/74 H Blood Pressure Mean [Right Arm] 97 97 Blood Pressure Source [Right Arm] Automatic Cuff Automatic Cuff Blood Pressure Position [Right Arm] Sitting Sitting 02 Sat by Pulse Oximetry 98 98 Oxygen Delivery Method Room Air Room Air - Lab Data Lab results reviewed: Yes: I reviewed the patient's lab results. Lab Results 06/11/19 21:12: POC Glucose 431 H* 06/11/19 21:48: WBC 12.4 H, RBC 5.04, Hgb 12.1 L, Hct 41.1, MCV 81.5, MCH 24.1 L , MCHC 29.5 L, RDW 14.7, Plt Count 402, MPV 9.5, Neut % (Auto) 84.8 H, Lymph % (Auto) 13.4, [place] % (Auto) 1.3 L, Eos % (Auto) 0.3, Baso % (Auto) 0.2, Neut # (Auto) 10.5 H, Lymph # (Auto) 1.7, [place] # (Auto) 0.2, Eos # (Auto) 0.0, Baso # (Auto) 0.0 06/11/19 21:48: Sodium 131 L, Potassium 4.1, Chloride 95 L, Carbon Dioxide 10 L, Anion Gap 30.1 H, BUN 16, Creatinine 0.99, Estimated Creat Clear 114, Estimated GFR 67, Est GFR ( Amer) 81, Glucose 480 H*, Calcium 9.2, Total Bilirubin 0.6, AST 14 L, ALT 21, Alkaline Phosphatase 187 H, Troponin I < 0.02, Total Protein 8.4 H, Albumin 3.7, Globulin 4.7 H, Albumin/Globulin Ratio 0.8 L, Amylase 54, Lipase 112, Acetone Level Small 06/11/19 21:48: Lactate 2.0 06/11/19 21:59: POC Glucose 390 H* 06/11/19 22:05: VBG pH 7.20 L, VBG pCO2 24.4 L, VBG pO2 177.9 H, VBG HCO3 9.4 L, VBG Total CO2 10.1 L, VBG O2 Saturation 99.1 H, VBG Base Excess -18.6 L 06/11/19 22:50: Urine Color Yellow, Urine Appearance Clear, Urine pH 5.5, Ur Specific [place] >= 1.030, Urine Protein Trace, Urine Glucose (UA) 2+, Urine Ketones 3+, Urine Blood Negative, Urine Nitrate Negative, Urine Bilirubin Negative, Urine Urobilinogen 0.2, Ur Leukocyte Esterase Negative, Urine WBC Occasional, Ur Squamous Epith Cells Occasional 06/11/19 22:50: Urine HCG, Qual Negative Result diagrams: 06/11/19 21:48 06/11/19 21:48 Orders (Tests/Meds): ED MEDICATIONS Generic Name Dose Route Start Last Admin Trade Name Freq PRN Reason Stop Dose Admin Acetaminophen 650 mg 06/11/19 23:27 Acetaminophen 325mg Tab PO 07/11/19 23:26 Q4HP PRN As Needed for Fever or Pain Sodium Chloride 1,000 mls @ 500 mls/hr 06/11/19 21:15 06/11/19 22:46 Sod Chlor 0.9% 1000ml Bag IV 07/11/19 21:14 500 mls/hr .Q2H DALIA Administration Sodium Chloride 1,000 mls @ 100 mls/hr 06/11/19 23:30 Sod Chlor 0.9% 1000ml Bag IV 07/11/19 23:29 .Q10H DALIA Insulin Human Lispro 0 unit 06/12/19 06:00 Humalog 100 Units/Ml 3ml Vial (Ssi) SQ 07/12/19 05:59 ACHS DALIA Protocol Ondansetron HCl 4 mg 06/11/19 23:27 Zofran 4mg/2ml Vial IV 07/11/19 23:26 Q8HP PRN Nausea Sodium Chloride 10 ml 06/11/19 23:27 Saline Flush 10ml Syringe IV 07/11/19 23:26 NEEDED PRN Maintain IV Site Discontinued Medications Generic Name Dose Route Start Last Admin Trade Name Sarah PRN Reason Stop Dose Admin Insulin Human Lispro 12 unit 06/11/19 21:17 Humalog 100 Units/Ml 3ml Vial (Ssi) SQ 06/11/19 21:18 ONCE ONE Insulin Human Regular 12 unit 06/11/19 21:19 06/11/19 21:23 Humulin R Insulin 100 Units/Ml 10ml Vial IVP 06/11/19 21:20 12 unit ONCE ONE Administration Ketorolac Tromethamine 30 mg 06/11/19 21:28 06/11/19 21:30 Toradol 30mg/Ml Vial IV 06/11/19 21:29 30 mg ONCE ONE Administration Ondansetron HCl 4 mg 06/11/19 21:09 06/11/19 21:23 Zofran 4mg/2ml Vial IV 06/11/19 21:10 4 mg ONCE ONE Administration ORDERS Category Date Time Status CT abdomen pelvis wo con Stat Cat Scan 06/11/19 21:13 Taken Chest XR -- portable [XR chest portable] Stat Exams 06/11/19 21:11 Taken Blood Culture Stat Micro 06/11/19 21:55 Received VBG [Venous Blood Gas] Stat RT 06/11/19 21:19 Ordered - ECG Data Tracing #1 I reviewed this ECG and interpreted as documented below: (EKG at 21:07 shows sinus tachycardia at 131 BPM; anterior infarct (age undetermined).) Medical Decision Narrative: 23:09 Pt evaluated. IV fluids, Zofran 4 mg IVP and Regular insulin 12 units IV ordered. Labs, EKG and PCXR ordered. Results reviewed. I have discussed case with Dr. Reynaga who has agreed to admit pt to observation for Dr. Rizvi. Results of work up, diagnosis and care plan discussed with pt. She understands, agrees and all questions answered. Pt will now be admitted. General Adult HPI - General Chief complaint: Nausea/Vomiting/Diarrhea Stated complaint: n/v possible dka Time Seen by Provider: 06/11/19 21:08 Mode of Arrival: EMS Source of Information: Patient, EMS Limitations: No Limitations - History of Present Illness HPI narrative: Pt is here in the ER from home via EMS for evaluation c/o elevated glucose with known IDDM, nausea, vomiting and diarrhea. Onset this afternoon around 3:00 pm this afternoon. Pt had prehospital glucose >500. She states she has had multiple bouts of vomiting and diarrhea and has been unable to keep anything down. Pt states she is compliant with her medicines although she has had mu ltiple episodes of DKA in the past. No chest pain, sob, abdominal pain. No other complaints. - Related Data Home Medications Medication Instructions Recorded Confirmed Venlafaxine HCl [Effexor 37.5mg 37.5 mg PO DAILY 04/05/18 06/11/19 tablet] Melatonin 10 mg PO HS 11/03/18 06/11/19 OXcarbazepine [Trileptal 300mg 1,200 mg PO BID 11/03/18 06/11/19 tablet] Methocarbamol [Methocarbamol 500mg 500 mg PO Q8HP PRN 11/09/18 06/11/19 Tablet] Metformin HCl 500 mg PO BID 06/11/19 06/11/19 Sennosides/Docusate Sodium 2 each PO HS 06/11/19 06/11/19 [Docusate Sodium-Senna Tablet] Previous Rx's Medication Instructions Recorded levetiracetam 500 mg tablet 2,500 mg PO BID #60 tab 08/24/18 Apixaban [Eliquis] 5 mg PO BID #60 tab 09/10/18 Insulin Glargine,Hum.rec.anlog 50 unit SQ HS #0 02/19/19 [Basaglar Kwikpen U-100] Insulin Lispro [Humalog Kwikpen 25 unit SUB-Q AC #0 02/19/19 U-100] Allergies Allergy/AdvReac Type Severity Reaction Status Date / Time buspirone [BUSPIRONE] Allergy Unknown Verified 04/01/19 00:47 nitrofurantoin Allergy Unknown Verified 04/01/19 00:47 [NITROFURANTOIN] sulfamethoxazole Allergy Unknown Verified 04/01/19 00:47 [From BACTRIM] topiramate [From TOPAMAX] Allergy Unknown Verified 04/01/19 00:47 trimethoprim [From BACTRIM] Allergy Unknown Verified 04/01/19 00:47 adhesive tape AdvReac Intermediate SKIN Verified 04/01/19 00:47 IRRITATION [facility] History - Hepatitis A Screen Drug use history?: No Attestation statement:: This patient has been screened for Hepatitis A risk factors. I have reviewed the patient's past medical history: Yes Medical History: Reports:: Arrhythmia, Deep Vein Thrombosis, Depression, Diabetes Mellitus Type 1, MRSA, Palpitations, Pulmonary Embolism, Seizures Denies:: Cancer, Diabetes Mellitus Type 2, Internal Pacemaker Other Medical History: Reports: Anemia, Other. Denies: Blood Transfusion Reaction Laterality Cases: Bilateral: Other Other Surgeries: Yes: Appendectomy, Cholecystectomy, Dilation and Curettage, Hysterectomy-Partial ("everything but left ovary"), Tubal Ligation, Other (ablation). No: Pacemaker Amputation: No Fractures: No Comment: Ablation 10/30/2016 - Social History Smoking Status: Former smoker Tobacco Type: cigarettes # Packs/Day (cigarettes): 1 #Yrs smoked (if former smoker): 4 Alcohol Intake: current Alcohol Intake Frequency:: a few times a month Substance Use Type: former substance user Occupational Status: disabled Housing: apartment Household Members: significant other Comment: Marked medical noncompliance - Psychiatric History Pschychiatric History:: Reports:: Depression Family Hx:: Anemia, Asthma, Cancer, Diabetes, Heart Attack, Hyperlipidemia, Hypertension, Kidney Disease, Stroke, Thyroid Disorder ROS Obtained: Yes All systems reviewed & no additional complaints - Constitutional Constitutional: Reports system reviewed and no additional complaints, except as docu - Eyes Eyes: Reports system reviewed and no additional complaints, except as docu - ENT Ears, Nose, Mouth, and Throat: Reports system reviewed and no additional complaints, except as docu - Cardiovascular Cardiovascular: Reports system reviewed and no additional complaints, except as docu - Respiratory Respiratory: Yes system reviewed and no additional complaints, except as docu - Gastrointestinal Gastrointestingal: Reports: system reviewed and no additional complaints, except as docu, as per HPI, diarrhea, nausea, vomiting. Denies: abdominal pain - Genitourinary Female Genitourinary: Reports system reviewed and no additional complaints, except as docu - Musculoskeletal Musculoskeletal: Reports system reviewed and no additional complaints, except as docu - Integumentary/Breasts Skin/Breast: Reports system reviewed and no additional complaints, except as docu - Neurologic Neurologic: Reports system reviewed and no additional complaints, except as docu - Endocrine Endocrine: Reports system reviewed and no additional complaints, except as docu - Hematologic/Lymphatic Henatologic/Lymphatic: Reports system reviewed and no additional complaints, except as docu - Allergic/Immunologic Allergic/Immunologic: Reports system reviewed and no additional complaints, except as docu Physical Exam - General General appearance: alert - Head Head exam: atraumatic, normocephalic, normal inspection - Eye Eye exam: Present: normal appearance, PERRL, EOMI - ENT ENT exam: Present: normal oropharynx, mucous membranes dry, other (Dry lips) - Neck Neck exam: Present: trachea midline - Chest Chest inspection: Present: normal inspection, symmetric chest wall rise - Respiratory Respiratory exam: Present: normal lung sounds bilaterally, respiratory distress. Absent: wheezes - Cardiovascular Cardiovascular exam: Present: tachycardia, normal heart sounds. Absent: rubs, gallop, clicks - Abdominal Exam Abdominal exam: Present: soft, normal bowel sounds. Absent: distention, tenderness, guarding, rebound, rigidity, Guerra's sign, tenderness at McBurney's Point - Extremities Exam Extremities exam: Present: normal inspection, full ROM, normal capillary refill. Absent: tenderness - Back Exam Back exam: Present: normal inspection - Neurological Exam Neurological exam: Present: alert, oriented X3, CN II-XII intact - Psychiatric Psychiatric exam: Present: normal affect, normal mood - Skin Skin exam: Present: warm, dry, intact
[2019-06-11 21:59] LABS: Basophils % 0.2 % (0.1-2.0); Eosinophils % 0.3 % (0.1-12.0); Hematocrit 41.1 % (37.0-47.0); Hemoglobin 12.1 g/dL (12.2-16.2); Lymphocytes # 1.7 K/mm3 (0.7-4.5); Lymphocytes % 13.4 % (10-50); Mean Corpuscular HGB Conc 29.5 g/dL (31.8-35.4); Mean Corpuscular Volume 81.5 fl (81-99); Mean Platelet Volume 9.5 fl (7.4-10.4); Monocytes # 0.2 K/mm3 (0.1-1.0); Monocytes % 1.3 % (1.7-9.3); Neutrophils # 10.5 K/mm3 (1.8-7.8); Neutrophils % 84.8 % (37.0-80.0); Platelet Count 402 K/mm3 (142-424); Red Blood Count 5.04 M/mm3 (4.20-5.40); Red Cell Distribution Width 14.7 % (11.5-17.5); White Blood Count 12.4 K/mm3 (4.8-10.8)
[2019-06-11 22:05] LABS: Acetone, Serum (Rapid) Small (None Detect)
[2019-06-11 22:07] LABS: VBG Base Excess -18.6 mmol/L (-2.4-2.3); VBG HCO3 9.4 mmol/L (23-30); VBG Oxygen Saturation 99.1 % (50-70); VBG PO2 177.9 mmol/L (28-40); VBG Total CO2 10.1 mmol/L (23-27)
[2019-06-11 22:09] LABS: VBG PCO2 24.4 mmol/L (35-51); VBG PH 7.2 mmol/L (7.31-7.41)
[2019-06-11 22:16] LABS: Alanine Aminotransferase 21 U/L (12-78); Albumin Level 3.7 gm/dL (3.4-5.0); Albumin/Globulin Ratio 0.8 (1.1-1.8); Alkaline Phosphatase 187 U/L (46-116); Amylase 54 U/L (25-115); Anion Gap 30.1 mEq/L (5-15); Aspartate Amino Transferase 14 U/L (15-37); Bilirubin,Total 0.6 mg/dL (0.2-1.0); Blood Urea Nitrogen 16 mg/dL (7-18); Calcium 9.2 mg/dL (8.5-10.1); Chloride 95 mmol/L (98-107); Globulin 4.7 gm/dl (1.3-3.2); Sodium 131 mmol/L (136-145); Total Protein,Serum 8.4 gm/dL (6.4-8.2)
[2019-06-11 22:19] LABS: Carbon Dioxide 10 mmol/L (21.0-32.0)
[2019-06-11 22:20] LABS: Glucose 480 mg/dL (74-106)
[2019-06-11 22:56] LABS: Microscopic, Urine URINE MICROSCOPIC (MICROSCOPIC)
[2019-06-11 22:58] LABS: Appearance,Urine CLEAR (Clear); Blood, Urine Negative (Negative); Color,Urine YELLOW (Yellow); Glucose,Urine (UA) 2+ (Negative); Ketones,Urine 3+ (Negative); Leukocyte Esterase,Urine Negative (Negative); PH,Urine 5.5 (5.0-8.5); Protein,Urine TRACE (Negative); Specific Gravity, Urine >= 1.030 (1.005-1.030); Urobilinogen,Urine 0.2 EU/dl (0.2)
[2019-06-11 23:00] LABS: Squamous Epithelial Cell,Urine Occasional #/hpf (0-5); WBC,Urine Occasional #/hpf (0-3)
[2019-06-11 23:01] LABS: Bilirubin,Urine Negative (Negative)
[2019-06-12 06:07] LABS: Basophils % 0.3 % (0.1-2.0); Eosinophils % 0.1 % (0.1-12.0); Hematocrit 41.4 % (37.0-47.0); Hemoglobin 11.7 g/dL (12.2-16.2); Lymphocytes # 0.8 K/mm3 (0.7-4.5); Lymphocytes % 5.2 % (10-50); Mean Corpuscular HGB Conc 28.2 g/dL (31.8-35.4); Mean Corpuscular Volume 84.6 fl (81-99); Mean Platelet Volume 8.7 fl (7.4-10.4); Monocytes # 0.4 K/mm3 (0.1-1.0); Monocytes % 2.3 % (1.7-9.3); Neutrophils # 13.9 K/mm3 (1.8-7.8); Neutrophils % 92.2 % (37.0-80.0); Platelet Count 365 K/mm3 (142-424); Red Blood Count 4.89 M/mm3 (4.20-5.40); Red Cell Distribution Width 14.8 % (11.5-17.5); White Blood Count 15.1 K/mm3 (4.8-10.8)
[2019-06-12 06:23] LABS: Anion Gap 29.8 mEq/L (5-15); Calcium 8.7 mg/dL (8.5-10.1)
--- NOTE | 2019-06-12 07:19 | Pharmacy Consult Notes ---
[facility] Pharmacy VTE Monitoring - Patient Demographics Admission date: 06/11/19 Report Date: 06/12/19 Time: 07:19 Allergies/Adverse Reactions: Patient Allergies buspirone [BUSPIRONE] Allergy (Unknown, Verified 04/01/19 00:47) nitrofurantoin [NITROFURANTOIN] Allergy (Unknown, Verified 04/01/19 00:47) sulfamethoxazole [From BACTRIM] Allergy (Unknown, Verified 04/01/19 00:47) topiramate [From TOPAMAX] Allergy (Unknown, Verified 04/01/19 00:47) trimethoprim [From BACTRIM] Allergy (Unknown, Verified 04/01/19 00:47) adhesive tape Adverse Reaction (Intermediate, Verified 04/01/19 00:47) SKIN IRRITATION Height: 1.6 m Weight: 87.175 kg Patient Problems: Current Active Problems (Updated 06/11/19 @ 23:12 by Joshua Sanabria III, DO) Dehydration (Acute) Type 1 diabetes mellitus with hyperglycemia (Acute) Gastroenteritis (Acute) - VTE Risk Labs: VTE Related Lab Results Hgb 11.7 g/dL (12.2-16.2) L 06/12/19 05:38 Hct 41.4 % (37.0-47.0) 06/12/19 05:38 Plt Count 365 K/mm3 (142-424) 06/12/19 05:38 BUN 15 mg/dL (7-18) 06/12/19 05:38 Creatinine 1.05 mg/dL (0.55-1.02) H 06/12/19 05:38 Estimated Creat Clear 110 mL/min (50-200) 06/12/19 05:38 VTE Score: 2 - Prophylaxis VTE Prophylaxis Ordered?: Yes Types of VTE Prophylaxis: TEDS Knee High Location of Applied Device: Bilateral Lower Extremeties - VTE Diagnosis Confirmed Treatment or plan recommended: Continue Current Treatment
[2019-06-12 07:38] LABS: Lymphocytes % 6 % (10-50); Monocytes % 2 % (2-9); Neutrophils % 92 % (42-76); Total Cells Counted 100
[2019-06-12 07:39] LABS: RBC Morphology Normal
--- NOTE | 2019-06-12 07:54 | History & Physical Report ---
*Admission Date: 06/11/19 *Chief complaint: Vomiting/diarrhea/abdominal pain *History of present illness: 29-year-old white female with type 1 diabetes, seizure disorder, multiple psychiatric issues with concomitant pseudoseizures and recurrent DVT disease who presented to the emergency department late yesterday evening with a chief complaint of abdominal pain and vomiting that she stated started earlier in the afternoon. She reports compliance with her medications and indeed has done a better job of staying out of the hospital than previous years over the past several months. In the ER she was found to be hyperglycemic, very minimally acidotic and small acetones. It was felt that she had very mild DKA and she was placed in the hospital for further observation with IV hydration and sliding scale insulin. In regards to her abdominal pain CT scan of abdomen and pelvis was done, virtual radiology service has read the scan as "possible mild thickening of colon" consistent with possible colitis. Patient's white count was not elevated and she has not been started on antibiotics. [facility] History I have reviewed the patient's past medical history: Yes Medical History: Reports:: Arrhythmia, Deep Vein Thrombosis, Depression, Diabetes Mellitus Type 1, MRSA, Palpitations, Pulmonary Embolism, Seizures Denies:: Cancer, Diabetes Mellitus Type 2, Internal Pacemaker *Have you ever received a pneumonia vaccine?: No *Have you received a flu vaccine this season?: No Other Medical History: Reports: Anemia, Other. Denies: Blood Transfusion Reaction Laterality Cases: Bilateral: Other Other Surgeries: Yes: Appendectomy, Cholecystectomy, Dilation and Curettage, Hysterectomy-Partial ("everything but left ovary"), Tubal Ligation, Other (ablation). No: Pacemaker Amputation: No Fractures: No - *Social History Smoking Status: Former smoker Tobacco Type: cigarettes # Packs/Day (cigarettes): 1 #Yrs smoked (if former smoker): 4 Alcohol Intake: current Alcohol Intake Frequency:: holidays/special occasions only Substance Use Type: former substance user *Occupational Status:: disabled Housing: apartment Household Members: significant other *Travel in the last 8 weeks: None - Psychiatric History Expresses thoughts of harming self/others: None Suicide Plan Description: No Plan Pschychiatric History:: Reports:: Depression Family Hx:: Anemia, Asthma, Cancer, Diabetes, Heart Attack, Hyperlipidemia, Hypertension, Kidney Disease, Stroke, Thyroid Disorder Review of Systems - Review of Systems Review of systems:: pertinent systems reviewed and negative unless documented below Review of systems noted: Negative for cardiac or pulmonary issues. Positive for vomiting of bile, negative for coffee-ground emesis or hematemesis. Patient reports that she feels like she is about to have diarrhea but "has not had anything yet." Reports abdominal pain. Denies extremity swelling. Denies neurologic changes. Denies skin changes. Meds Home Medications Medication Instructions Recorded Confirmed Type Venlafaxine HCl [Effexor 37.5mg 37.5 mg PO DAILY 04/05/18 06/12/19 History tablet] levetiracetam 500 mg tablet 2,500 mg PO BID #60 tab 08/24/18 06/12/19 Rx Apixaban [Eliquis] 5 mg PO BID #60 tab 09/10/18 06/12/19 Rx Melatonin 10 mg PO HS 11/03/18 06/12/19 History OXcarbazepine [Trileptal 300mg 1,200 mg PO BID 11/03/18 06/12/19 History tablet] Methocarbamol [Methocarbamol 500mg 500 mg PO Q8HP PRN 11/09/18 06/12/19 History Tablet] Insulin Glargine,Hum.rec.anlog 50 unit SQ HS #0 02/19/19 06/12/19 Rx [Basaglar Kwikpen U-100] Insulin Lispro [Humalog Kwikpen 25 unit SUB-Q AC #0 02/19/19 06/12/19 Rx U-100] Metformin HCl 250 mg PO HS 06/11/19 06/12/19 History Sennosides/Docusate Sodium 2 each PO HS 06/11/19 06/12/19 History [Docusate Sodium-Senna Tablet] Allergies Allergy/AdvReac Type Severity Reaction Status Date / Time buspirone [BUSPIRONE] Allergy Unknown Verified 04/01/19 00:47 nitrofurantoin Allergy Unknown Verified 04/01/19 00:47 [NITROFURANTOIN] sulfamethoxazole Allergy Unknown Verified 04/01/19 00:47 [From BACTRIM] topiramate [From TOPAMAX] Allergy Unknown Verified 04/01/19 00:47 trimethoprim [From BACTRIM] Allergy Unknown Verified 04/01/19 00:47 adhesive tape AdvReac Intermediate SKIN Verified 04/01/19 00:47 IRRITATION Exam Vital signs and Labs for Last 24 Hours: Temp Pulse Resp BP Pulse Ox 98.4 F 127 H 16 135/60 97 06/12/19 07:47 06/12/19 07:47 06/12/19 07:47 06/12/19 07:47 06/12/19 07:47 Laboratory Results - last 24 hr 06/11/19 21:12: POC Glucose 431 H* 06/11/19 21:48: WBC 12.4 H, RBC 5.04, Hgb 12.1 L, Hct 41.1, MCV 81.5, MCH 24.1 L , MCHC 29.5 L, RDW 14.7, Plt Count 402, MPV 9.5, Neut % (Auto) 84.8 H, Lymph % (Auto) 13.4, [place] % (Auto) 1.3 L, Eos % (Auto) 0.3, Baso % (Auto) 0.2, Neut # (Auto) 10.5 H, Lymph # (Auto) 1.7, [place] # (Auto) 0.2, Eos # (Auto) 0.0, Baso # (Auto) 0.0 06/11/19 21:48: Sodium 131 L, Potassium 4.1, Chloride 95 L, Carbon Dioxide 10 L, Anion Gap 30.1 H, BUN 16, Creatinine 0.99, Estimated Creat Clear 114, Estimated GFR 67, Est GFR ( Amer) 81, Glucose 480 H*, Calcium 9.2, Total Bilirubin 0.6, AST 14 L, ALT 21, Alkaline Phosphatase 187 H, Troponin I < 0.02, Total Protein 8.4 H, Albumin 3.7, Globulin 4.7 H, Albumin/Globulin Ratio 0.8 L, Amylase 54, Lipase 112, Acetone Level Small 06/11/19 21:48: Lactate 2.0 06/11/19 21:59: POC Glucose 390 H* 06/11/19 22:05: VBG pH 7.20 L, VBG pCO2 24.4 L, VBG pO2 177.9 H, VBG HCO3 9.4 L, VBG Total CO2 10.1 L, VBG O2 Saturation 99.1 H, VBG Base Excess -18.6 L 06/11/19 22:50: Urine Color Yellow, Urine Appearance Clear, Urine pH 5.5, Ur Specific [place] >= 1.030, Urine Protein Trace, Urine Glucose (UA) 2+, Urine Ketones 3+, Urine Blood Negative, Urine Nitrate Negative, Urine Bilirubin Negative, Urine Urobilinogen 0.2, Ur Leukocyte Esterase Negative, Urine WBC Occasional, Ur Squamous Epith Cells Occasional 06/11/19 22:50: Urine HCG, Qual Negative 06/11/19 23:26: POC Glucose 298 H 06/12/19 01:03: Potassium 5.3 H D 06/12/19 05:17: POC Glucose 369 H* 06/12/19 05:38: WBC 15.1 H, RBC 4.89, Hgb 11.7 L, Hct 41.4, MCV 84.6, MCH 23.9 L , MCHC 28.2 L, RDW 14.8, Plt Count 365, MPV 8.7, Neut % (Auto) 92.2 H, Lymph % (Auto) 5.2 L, [place] % (Auto) 2.3, Eos % (Auto) 0.1, Baso % (Auto) 0.3, Neut # (Auto) 13.9 H, Lymph # (Auto) 0.8, [place] # (Auto) 0.4, Eos # (Auto) 0.0, Baso # (Auto) 0.0, Total Counted 100, Neutrophils % (Manual) 92 H, Lymphocytes % (Manual) 6 L, Monocytes % (Manual) 2, Platelet Estimate Normal, RBC Morphology Normal 06/12/19 05:38: Sodium 133 L, Potassium 5.8 H, Chloride 101, Carbon Dioxide 8 L* D, Anion Gap 29.8 H, BUN 15, Creatinine 1.05 H, Estimated Creat Clear 110, Estimated GFR 62, Est GFR ( Amer) 76, Glucose 396 H, Calcium 8.7 I & O for Last 24 hours: Intake & Output 06/09/19 06/10/19 06/11/19 06/12/19 11:59 11:59 11:59 11:59 Intake Total 2350 / 2350 Output Total 425 / 425 Balance 1924 / 1924 Weight 192 lb 3 oz Narrative: Patient is sleeping, when awakened is talkative and oriented x3. ENT exam clear. Oropharynx clear. Heart rate regular without murmurs. Anterior and posterior lung p[place]ra are clear. Abdomen is soft, but patient is very tender throughout the superficial musculature areas of the abdomen. No rebound or guarding. Extremities are warm and well-perfused. No distal pulse deficits. Patient is not tachycardic and has normal blood pressure. Assessment and Plan (1) Dehydration Current visit: Yes Status: Acute Category: Medical Code(s): E86.0 - Dehydration IV fluids as noted. Cautious observation of labs (2) Gastroenteritis Current visit: Yes Status: Acute Category: Medical Code(s): K52.9 - Noninfective gastroenteritis and colitis, unspecified Overall improving. No changes in plan. Get official CT scan result. Check PCR testing of stool if has diarrhea. (3) Type 1 diabetes mellitus with hyperglycemia Current visit: Yes Status: Acute Category: Medical Code(s): E10.65 - Type 1 diabetes mellitus with hyperglycemia Very minimal DKA. Please see plan below (4) Acidosis due to type 1 diabetes mellitus Current visit: No Status: Acute Category: Medical Code(s): E10.10 - Type 1 diabetes mellitus with ketoacidosis without coma Overall doing better clinically with normal vital signs. We will check acetone levels today. If worsens would consider insulin drip, but at this point would treat conservatively with hydration.
[2019-06-12 08:56] LABS: Acetone, Serum (Rapid) Large (None Detect)
[2019-06-12 11:30] LABS: Anion Gap 32.1 mEq/L (5-15); Blood Urea Nitrogen 13 mg/dL (7-18); Chloride 105 mmol/L (98-107); Sodium 139 mmol/L (136-145)
[2019-06-12 11:31] LABS: Alanine Aminotransferase 25 U/L (12-78); Albumin/Globulin Ratio 0.5 (1.1-1.8); Alkaline Phosphatase 210 U/L (46-116); Aspartate Amino Transferase 21 U/L (15-37); Bilirubin,Total 0.3 mg/dL (0.2-1.0); Calcium 8.2 mg/dL (8.5-10.1); Globulin 5.8 gm/dl (1.3-3.2); Glucose 126 mg/dL (74-106); Total Protein,Serum 8.8 gm/dL (6.4-8.2)
[2019-06-12 11:34] LABS: Carbon Dioxide 7 mmol/L (21.0-32.0)
[2019-06-12 14:21] LABS: Anion Gap 20.4 mEq/L (5-15); Calcium 7.6 mg/dL (8.5-10.1)
[2019-06-12 16:47] LABS: Anion Gap 16.6 mEq/L (5-15); Blood Urea Nitrogen 9 mg/dL (7-18); Calcium 7.6 mg/dL (8.5-10.1); Carbon Dioxide 15 mmol/L (21.0-32.0); Chloride 108 mmol/L (98-107); Glucose 132 mg/dL (74-106); Sodium 136 mmol/L (136-145)
[2019-06-12 17:08] LABS: Acetone, Serum (Rapid) Small (None Detect)
[2019-06-12 21:50] LABS: Anion Gap 17.4 mEq/L (5-15); Blood Urea Nitrogen 7 mg/dL (7-18); Calcium 7.4 mg/dL (8.5-10.1); Carbon Dioxide 14 mmol/L (21.0-32.0); Chloride 108 mmol/L (98-107); Glucose 149 mg/dL (74-106); Sodium 136 mmol/L (136-145)
[2019-06-12 21:51] LABS: Acetone, Serum (Rapid) Small (None Detect)
[2019-06-13 06:14] LABS: Basophils % 0.6 % (0.1-2.0); Eosinophils # 0.1 K/mm3 (0.0-0.4); Eosinophils % 0.9 % (0.1-12.0); Hematocrit 31.4 % (37.0-47.0); Hemoglobin 9.6 g/dL (12.2-16.2); Lymphocytes % 35.9 % (10-50); Mean Corpuscular HGB Conc 30.7 g/dL (31.8-35.4); Mean Platelet Volume 7.8 fl (7.4-10.4); Monocytes # 0.3 K/mm3 (0.1-1.0); Neutrophils # 3.2 K/mm3 (1.8-7.8); Neutrophils % 57.6 % (37.0-80.0); Platelet Count 237 K/mm3 (142-424); Red Blood Count 4.02 M/mm3 (4.20-5.40); Red Cell Distribution Width 15.1 % (11.5-17.5); White Blood Count 5.5 K/mm3 (4.8-10.8)
[2019-06-13 06:28] LABS: Albumin Level 2.3 gm/dL (3.4-5.0); Albumin/Globulin Ratio 0.7 (1.1-1.8); Anion Gap 12.9 mEq/L (5-15); Bilirubin,Total 0.2 mg/dL (0.2-1.0); Calcium 7.4 mg/dL (8.5-10.1); Globulin 3.2 gm/dl (1.3-3.2); Total Protein,Serum 5.5 gm/dL (6.4-8.2)
--- NOTE | 2019-06-13 09:17 | Progress Note ---
Internal Medicine - PN: Subj *Date: 06/13/19 *Time: 08:45 Interval history: Ms. Bolton states she is feeling somewhat better this morning. Quite fatigued. Diffuse abdominal pain. Gap closed on AM labs. No fevers, N/V, diarrhea, CP, SOA. denies any Sz activity since admit. tolerating full liquid diet, requesting regular diet. Exam Vital signs and Labs for Last 24 Hours: Temp Pulse Resp BP Pulse Ox 98.1 F 70 14 117/77 97 06/13/19 07:51 06/13/19 08:00 06/13/19 08:00 06/13/19 08:00 06/13/19 08:00 Laboratory Results - last 24 hr 06/12/19 05:38: Hemoglobin A1c 11.2 H 06/12/19 08:18: Sodium 139, Potassium 5.1, Chloride 105, Carbon Dioxide 7 L* D, Anion Gap 32.1 H, BUN 13, Creatinine 0.98, Estimated Creat Clear 118, Estimated GFR 68, Est GFR ( Amer) 82, Glucose 126 H D, Calcium 8.2 L, Total Bilirubin 0.3, AST 21 D, ALT 25, Alkaline Phosphatase 210 H, Total Protein 8.8 H, Albumin 3.0 L D, Globulin 5.8 H, Albumin/Globulin Ratio 0.5 L 06/12/19 09:51: POC Glucose 169 H 06/12/19 10:04: POC Glucose 165 H 06/12/19 10:18: POC Glucose 157 H 06/12/19 10:58: POC Glucose 116 H 06/12/19 12:03: POC Glucose 89 06/12/19 12:31: POC Glucose 83 06/12/19 13:04: POC Glucose 96 06/12/19 13:51: Sodium 138, Potassium 4.4, Chloride 110 H, Carbon Dioxide 12 L D , Anion Gap 20.4 H, BUN 10, Creatinine 0.88, Estimated Creat Clear 131, Estimated GFR 77, Est GFR ( Amer) 93, Glucose 108 H, Calcium 7.6 L 06/12/19 14:00: POC Glucose 103 06/12/19 15:05: POC Glucose 128 H 06/12/19 15:51: POC Glucose 115 H 06/12/19 16:15: Sodium 136, Potassium 3.6, Chloride 108 H, Carbon Dioxide 15 L D , Anion Gap 16.6 H, BUN 9, Creatinine 0.95, Estimated Creat Clear 121, Estimated GFR 70, Est GFR ( Amer) 85, Glucose 132 H D, Calcium 7.6 L, Acetone Level [facility] 06/12/19 17:55: POC Glucose 149 H 06/12/19 19:37: POC Glucose 140 H 06/12/19 21:10: Sodium 136, Potassium 3.4 L, Chloride 108 H, Carbon Dioxide 14 L , Anion Gap 17.4 H, BUN 7, Creatinine 0.88, Estimated Creat Clear 131, Estimated GFR 77, Est GFR ( Amer) 93, Glucose 149 H, Calcium 7.4 L, Acetone Level [facility] 06/12/19 21:56: POC Glucose 142 H 06/12/19 23:52: POC Glucose 125 H 06/13/19 01:56: POC Glucose 107 06/13/19 04:00: POC Glucose 140 H 06/13/19 05:46: WBC 5.5 D, RBC 4.02 L, Hgb 9.6 L, Hct 31.4 L, MCV 78.0 L, MCH 23.9 L, MCHC 30.7 L, RDW 15.1, Plt Count 237 D, MPV 7.8, Neut % (Auto) 57.6, Lymph % (Auto) 35.9, [place] % (Auto) 5.0, Eos % (Auto) 0.9, Baso % (Auto) 0.6, Neut # (Auto) 3.2, Lymph # (Auto) 2.0, [place] # (Auto) 0.3, Eos # (Auto) 0.1, Baso # (Auto) 0.0 06/13/19 05:46: Sodium 142, Potassium 2.9 L*, Chloride 112 H, Carbon Dioxide 20 L D, Anion Gap 12.9, BUN 5 L D, Creatinine 0.83, Estimated Creat Clear 139, Estimated GFR 82, Est GFR ( Amer) 99, Glucose 127 H, Calcium 7.4 L, Total Bilirubin 0.2, AST 12 L D, ALT 16 D, Alkaline Phosphatase 117 H, Total Protein 5.5 L D, Albumin 2.3 L D, Globulin 3.2, Albumin/Globulin Ratio 0.7 L 06/13/19 05:46: Acetone Level Small 06/13/19 05:48: POC Glucose 125 H 06/13/19 08:03: POC Glucose 127 H I & O for Last 24 hours: Intake & Output 06/10/19 06/11/19 06/12/19 06/13/19 23:59 23:59 23:59 23:59 Intake Total 2350 / 2350 3597 / 3597 1734 / 1734 Output Total 425 / 425 Balance 1925 / 1925 3597 / 3597 1734 / 1734 Weight 85.729 kg 87.175 kg 87.175 kg Narrative: Patient is tired, but awakens to stimuli, talkative and oriented x3. ENT exam clear, cataract in left eye. Oropharynx clear. Heart rate regular without murmurs. Anterior and posterior lung piedra are clear. Abdomen is soft, but patient is very tender throughout the superficial musculature areas of the abdomen. No rebound or guarding. Extremities are warm and well-perfused. No distal pulse deficits. Assessment and Plan (1) Dehydration Current visit: Yes Status: Acute Category: Medical Code(s): E86.0 - Dehydration (2) Gastroenteritis Current visit: Yes Status: Acute Category: Medical Code(s): K52.9 - Noninfective gastroenteritis and colitis, unspecified (3) Type 1 diabetes mellitus with hyperglycemia Current visit: Yes Status: Acute Category: Medical Code(s): E10.65 - Type 1 diabetes mellitus with hyperglycemia (4) Acidosis due to type 1 diabetes mellitus Current visit: No Status: Acute Category: Medical Code(s): E10.10 - Type 1 diabetes mellitus with ketoacidosis without coma - Assessment and plan all Dx Assessment and Plan for all problems:: Gap closed. Transition to basal bolus regimen for Insulin. Advance diet as tolerated. Still awaiting Stool PCR to assess for infectious etiology of Diarrhea/colitis. Hemodynamically stable. Hypokalemia addressed with PO and IV KCl. decrease IVF to LR at 100cc/hr. continues to require inpatient management pending transition to SQ insulin regimen.
[2019-06-13 16:14] LABS: Anion Gap 13.2 mEq/L (5-15)
[2019-06-14 06:24] LABS: Basophils % 0.9 % (0.1-2.0); Eosinophils # 0.1 K/mm3 (0.0-0.4); Eosinophils % 1.2 % (0.1-12.0); Hematocrit 30.2 % (37.0-47.0); Hemoglobin 9.4 g/dL (12.2-16.2); Lymphocytes # 1.6 K/mm3 (0.7-4.5); Lymphocytes % 37.2 % (10-50); Mean Corpuscular Volume 78.3 fl (81-99); Mean Platelet Volume 8.5 fl (7.4-10.4); Monocytes # 0.2 K/mm3 (0.1-1.0); Neutrophils # 2.4 K/mm3 (1.8-7.8); Neutrophils % 55.9 % (37.0-80.0); Platelet Count 200 K/mm3 (142-424); Red Blood Count 3.86 M/mm3 (4.20-5.40); Red Cell Distribution Width 15.4 % (11.5-17.5); White Blood Count 4.4 K/mm3 (4.8-10.8)
[2019-06-14 06:36] LABS: Anion Gap 11.7 mEq/L (5-15); Calcium 8.1 mg/dL (8.5-10.1)
[2019-06-14 06:38] LABS: Phosphorous 1.9 mg/dL (2.4-4.9)
--- NOTE | 2019-06-14 08:30 | Progress Note ---
Internal Medicine - PN: Subj *Date: 06/14/19 *Time: 08:29 Interval history: Patient had a fairly good night, kept fluids down orally but has a lot of abdominal pain and reports that any kind of solid food makes her stomach hurt. Exam Vital signs and Labs for Last 24 Hours: Temp Pulse Resp BP Pulse Ox 98 F 85 12 142/83 H 100 06/14/19 00:00 06/14/19 07:00 06/14/19 07:00 06/14/19 07:00 06/14/19 07:00 Laboratory Results - last 24 hr 06/13/19 09:30: Stool Occult Blood Negative 06/13/19 09:40: Stl Aeromonas (PCR) Not detected, Stl C. cayetanensis PCR Not detected, Stool Rotavirus (PCR) Not detected, Stl Adenov F 40/41 PCR Not detected, Stool Astrovirus (PCR) Not detected, Stool Campylobacter PCR Not detected, Stl C.difficile Tox PCR Not detected, Stool Cryptosporidium PCR Not detected, Stl E.coli Shiga Tox PCR Not detected, Stool E coli O157 PCR Not detected, Stl Enterotoxigenic E PCR Not detected, Stool EPEC (PCR) Not detected, Stool EAEC (PCR) Not detected, Stl E. histolytica PCR Not detected, Stool Giardia Lamblia PCR Not detected, Stool Salmonella PCR Not detected, Stool Sapovirus (PCR) Not detected, Stl P. shigelloides PCR Not detected, Stl Shigella/EIEC PCR Not detected, St Y.enterocolitica PCR Not detected, Stool Vibrio (PCR) Not detected, Stl Vibrio cholerae PCR Not detected, Stl Norovirus GI/GII PCR Not detected 06/13/19 09:54: POC Glucose 114 H 06/13/19 11:56: POC Glucose 178 H 06/13/19 16:01: Sodium 140, Potassium 4.2 D, Chloride 109 H, Carbon Dioxide 22, Anion Gap 13.2, BUN 3 L D, Creatinine 0.93, Estimated Creat Clear 124, Estimated GFR 72, Est GFR ( Amer) 87, Glucose 291 H D, Calcium 8.0 L 06/13/19 16:27: POC Glucose 305 H* 06/13/19 20:12: POC Glucose 144 H 06/14/19 05:43: POC Glucose 225 H 06/14/19 05:45: WBC 4.4 L, RBC 3.86 L, Hgb 9.4 L, Hct 30.2 L, MCV 78.3 L, MCH 24.2 L, MCHC 31.0 L, RDW 15.4, Plt Count 200, MPV 8.5, Neut % (Auto) 55.9, Lymph % (Auto) 37.2, [place] % (Auto) 5.0, Eos % (Auto) 1.2, Baso % (Auto) 0.9, Neut # (Auto) 2.4, Lymph # (Auto) 1.6, [place] # (Auto) 0.2, Eos # (Auto) 0.1, Baso # (Auto) 0.0 06/14/19 05:45: Sodium 140, Potassium 3.7, Chloride 107, Carbon Dioxide 25, Anion Gap 11.7, BUN 10 D, Creatinine 0.67 D, Estimated Creat Clear 188, Estimated GFR 105, Est GFR ( Amer) 127 D, Glucose 250 H, Calcium 8.1 L, Phosphorus 1.9 L, Magnesium 1.5 06/14/19 05:45: Acetone Level Small I & O for Last 24 hours: Intake & Output 06/11/19 06/12/19 06/13/19 06/14/19 11:59 11:59 11:59 11:59 Intake Total 2350 / 2350 6761 / 6761 2913 / 2913 Output Total 425 / 425 Balance 1925 / 1925 6761 / 6761 2913 / 2913 Weight 192 lb 3 oz 192 lb 3.007 oz 210 lb 1 oz Microbiology Reports for the Last 24 Hours: Microbiology 06/11/19 21:55 Blood Blood Culture - Preliminary NO GROWTH AFTER 48 HOURS 06/11/19 21:48 Blood Blood Culture - Preliminary NO GROWTH AFTER 48 HOURS Narrative: Patient is awake, alert, oriented x3. Lungs are clear. Heart rate regular without murmurs. Abdomen is soft but she has subjective tenderness on palpation. No distal edema. Good distal perfusion. Assessment and Plan (1) Dehydration Current visit: Yes Status: Acute Category: Medical Code(s): E86.0 - Dehydration (2) Gastroenteritis Current visit: Yes Status: Acute Category: Medical Code(s): K52.9 - Noninfective gastroenteritis and colitis, unspecified (3) Type 1 diabetes mellitus with hyperglycemia Current visit: Yes Status: Acute Category: Medical Code(s): E10.65 - Type 1 diabetes mellitus with hyperglycemia (4) Acidosis due to type 1 diabetes mellitus Current visit: No Status: Acute Category: Medical Code(s): E10.10 - Type 1 diabetes mellitus with ketoacidosis without coma - Assessment and plan all Dx Assessment and Plan for all problems:: Overall improving. Given her condition of abdominal pain and colitis on CT scan I will start p.o. Flagyl. Close follow-up with acetone levels. Hopefully discharge tomorrow.
[2019-06-14 14:28] LABS: Calcium 7.7 mg/dL (8.5-10.1)
[2019-06-15 06:08] VITALS: BP 164/73
[2019-06-15 06:32] LABS: Alanine Aminotransferase 30 U/L (12-78); Albumin Level 2.5 gm/dL (3.4-5.0); Albumin/Globulin Ratio 0.8 (1.1-1.8); Alkaline Phosphatase 117 U/L (46-116); Aspartate Amino Transferase 18 U/L (15-37); Bilirubin,Total 0.2 mg/dL (0.2-1.0); Blood Urea Nitrogen 11 mg/dL (7-18); Carbon Dioxide 26 mmol/L (21.0-32.0); Chloride 105 mmol/L (98-107); Globulin 3.3 gm/dl (1.3-3.2); Glucose 325 mg/dL (74-106); Sodium 138 mmol/L (136-145); Total Protein,Serum 5.8 gm/dL (6.4-8.2)
[2019-06-15 07:16] LABS: Acetone, Serum (Rapid) None Detected (None Detect)
--- NOTE | 2019-06-15 09:07 | Discharge Summary ---
General - General Admission date:: 06/12/19 Discharge date: 06/15/19 HPI HPI: 29-year-old white female with type 1 diabetes, seizure disorder, multiple psychiatric issues with concomitant pseudoseizures and recurrent DVT disease who presented to the emergency department late yesterday evening with a chief complaint of abdominal pain and vomiting that she stated started earlier in the afternoon. She reports compliance with her medications and indeed has done a better job of staying out of the hospital than previous years over the past several months. In the ER she was found to be hyperglycemic, very minimally acidotic and small acetones. It was felt that she had very mild DKA and she was placed in the hospital for further observation with IV hydration and sliding scale insulin. In regards to her abdominal pain CT scan of abdomen and pelvis was done, virtual radiology service has read the scan as "possible mild thickening of colon" consistent with possible colitis. Patient's white count was not elevated and she has not been started on antibiotics. Hospital Course Hospital Course: Patient was admitted, and initially was treated with resumption of sliding scale insulin and IV fluids to treat her very mild in DKA with small acetone levels. Unfortunately, this did not improve patient significantly, and the following morning she had moderate to large acetone levels in her serum testing although her other labs and vital signs had improved nicely. As a result she was transferred to stepdown unit and placed on insulin drip over the next 24 hours. This cleared ketones in her serum and she was resumed on her basal/bolus regimen but unfortunately she had a return of some abdominal pain and ketosis the next day. She was once again placed on insulin drip with fluids and this once again cleared her ketones and this has persisted overnight. Her CT scan was read as mild colitis, Flagyl was started empirically and this has seemed to help her abdominal pain. Over the past 24 hours she is been able to eat complete meals. Has been able to tolerate sliding scale/subcutaneous insulin and has had no increased abdominal pain. She did report some shortness of air symptoms. Lung examinations were unremarkable, chest x-ray was performed because of her significant volume infusions but revealed no evidence of fluid overload. Of note I discussed with patient her ongoing issues with medical and appointment noncompliance. She reports that she has been compliant with her insulin therapy and has been able to obtain needed refills. She reports that she has not been attending her office appointments because of transportation issues and a lot of social instability with moving in between her mother's house and her brother's house and also that she has not been able to come up with $9 for her purported co-pay. I checked into her insurance status and she actually does not show a co-pay at our office and has not been charged anything for office visit since 2014. I told her this and she states that she will try and make an appointment for next week. I discussed with her the importance of ongoing appointments in the office to monitor her diabetes as an outpatient. Final be to discharge home today. We will treat with empiric Flagyl for the colitis issues and continue her insulin regimen at home. Objective Vital signs: Temp Pulse Resp BP Pulse Ox 97.5 F L 60 17 164/73 H 94 L 06/14/19 19:33 06/15/19 08:00 06/14/19 19:33 06/15/19 06:00 06/15/19 06:00 Narrative: Patient is awake. Alert. Oriented x3. 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 No JVD. Lungs are clear, excellent air expansion. Heart rate regular without murmurs or gallops. Abdomen is minimally tender but vastly improved over admission. She has no CVA tenderness. She is well hydrated, good distal skin perfusion. Able to move all extremities well Results Labs on day of discharge: Labs from last 24 hours 06/15/19 06/15/19 06/14/19 05:48 05:40 19:26 Sodium 138 Potassium 4.0 Chloride 105 Carbon Dioxide 26 Anion Gap 11.0 BUN 11 D Creatinine 0.58 Estimated Creat Clear 215 Estimated GFR 124 Est GFR ( Amer) 150 D Glucose 325 H D POC Glucose 320 H* 328 H* Calcium 8.0 L Total Bilirubin 0.2 AST 18 D ALT 30 D Alkaline Phosphatase 117 H Total Protein 5.8 L Albumin 2.5 L Globulin 3.3 H Albumin/Globulin Ratio 0.8 L Acetone Level None detected 06/14/19 06/14/19 06/14/19 16:40 15:04 14:03 Sodium Potassium Chloride Carbon Dioxide Anion Gap BUN Creatinine Estimated Creat Clear Estimated GFR Est GFR ( Amer) Glucose POC Glucose 402 H* 232 H 249 H Calcium Total Bilirubin AST ALT Alkaline Phosphatase Total Protein Albumin Globulin Albumin/Globulin Ratio Acetone Level 07/17/19 07/17/19 07/17/19 13:02 13:00 13:00 Sodium 143 Potassium 4.0 Chloride 110 H Carbon Dioxide 22 Anion Gap 15.0 BUN 7 D Creatinine 0.71 Estimated Creat Clear 177 Estimated GFR 98 Est GFR ( Amer) 119 Glucose 230 H POC Glucose 206 H Calcium 7.7 L Total Bilirubin AST ALT Alkaline Phosphatase Total Protein Albumin Globulin Albumin/Globulin Ratio Acetone Level None detected 06/14/19 06/14/19 06/14/19 12:03 11:08 10:01 Sodium Potassium Chloride Carbon Dioxide Anion Gap BUN Creatinine Estimated Creat Clear Estimated GFR Est GFR ( Amer) Glucose POC Glucose 114 H 198 H 241 H Calcium Total Bilirubin AST ALT Alkaline Phosphatase Total Protein Albumin Globulin Albumin/Globulin Ratio Acetone Level Preliminary micro results at discharge 06/11/19 21:55 Blood Culture - Preliminary Blood NO GROWTH AFTER 48 HOURS 06/11/19 21:48 Blood Culture - Preliminary Blood NO GROWTH AFTER 48 HOURS DS: Diagnosis - Discharge Diagnosis (1) Dehydration Status: Resolved (2) Gastroenteritis Status: Resolved (3) Type 1 diabetes mellitus with hyperglycemia Status: Chronic (4) Acidosis due to type 1 diabetes mellitus Status: Resolved Discharge Plan - Patient Discharge Instructions ACTIVITY: Continue current activity DIET: continue same diet Patient Instructions: Type 1 Diabetes, Dehydration, Diabetic Neuropathy, Viral Gastroenteritis, Carbohydrate-Counting Diet, DI for Dehydration -- Adult, DI for Viral Gastroenteritis -- Adult, DI for Diabetes Type 1 -- Adult, DI for Bacterial Gastroenteritis -- Adult, DI for Diabetic Ketoacidosis - Follow up Plan Follow up with: Srini Ayala MD [Staff Physician] - 06/20/19 Disposition: Home, Self-Retirement Medications: Home Medications Medication Instructions Recorded Confirmed Type Venlafaxine HCl [Effexor 37.5mg 37.5 mg PO DAILY 04/05/18 06/12/19 History tablet] levetiracetam 500 mg tablet 2,500 mg PO BID #60 tab 08/24/18 06/12/19 Rx Apixaban [Eliquis] 5 mg PO BID #60 tab 09/10/18 06/12/19 Rx Melatonin 10 mg PO HS 11/03/18 06/12/19 History OXcarbazepine [Trileptal 300mg 1,200 mg PO BID 11/03/18 06/12/19 History tablet] Methocarbamol [Methocarbamol 500mg 500 mg PO Q8HP PRN 11/09/18 06/12/19 History Tablet] Insulin Glargine,Hum.rec.anlog 50 unit SQ HS #0 02/19/19 06/12/19 Rx [Basaglar Kwikpen U-100] Insulin Lispro [Humalog Kwikpen 25 unit SUB-Q AC #0 02/19/19 06/12/19 Rx U-100] Metformin HCl 500 mg PO BID 06/11/19 06/12/19 History Sennosides/Docusate Sodium 2 each PO HS 06/11/19 06/12/19 History [Docusate Sodium-Senna Tablet] Omeprazole 20 mg PO DAILY 06/12/19 06/12/19 History metroNIDAZOLE [Flagyl 500mg 500 mg PO TID #21 tab 06/15/19 Rx Tablet] Prescriptions/Medication Reconciliation: New metroNIDAZOLE [Flagyl 500mg Tablet] 500 mg PO TID #21 tab Continued levetiracetam 500 mg tablet 2,500 mg PO BID #60 tab Apixaban [Eliquis] 5 mg PO BID #60 tab OXcarbazepine [Trileptal 300mg tablet] 1,200 mg PO BID Methocarbamol [Methocarbamol 500mg Tablet] 500 mg PO Q8HP PRN PRN Reason: MUSCLE SPASMS Insulin Lispro [Humalog Kwikpen U-100] 25 unit SUB-Q AC #0 Venlafaxine HCl [Effexor 37.5mg tablet] 37.5 mg PO DAILY Melatonin 10 mg PO HS Insulin Glargine,Hum.rec.anlog [Basaglar Kwikpen U-100] 50 unit SQ HS #0 Metformin HCl 500 mg PO BID Sennosides/Docusate Sodium [Docusate Sodium-Senna Tablet] 2 each PO HS Omeprazole 20 mg PO DAILY
== END 2019-06-15 10:06 | disposition home or self-care (01) | DRG 639 ==
LOC: 2ND 21:08 → ER 21:08 → 2ND 06-12 00:13
PROVIDERS: ADMIT Internal Medicine Adolescent Medicine; ATTEND Internal Medicine Adolescent Medicine
CPT/HCPCS: 36415; 71010; 71045; 74176; 80048; 80053; 81001; 81025; 82009; 82150; 82272; 82803; 82962; 83036; 83605; 83690; 83735; 84100; 84132; 84484; 85007; 85025; 87040; 87507; 93005; 96365; 96375; 99284; 99285; G0328; J1642; J2405

== ENCOUNTER → 2019-08-23 13:25 | Outpatient (CLI) | payer MEDICAID, SELFPAY ==
[2019-08-26 13:45] LABS: Levetiracetam (Keppra) 50.2 ug/mL (10.0-40.0)
== END ==
PROVIDERS: PCP Nurse Practitioner Family; Visit Provider Nurse Practitioner Family
DX: G40.909 Epilepsy, unspecified, not intractable, without status epilepticus (principal)
CPT/HCPCS: 36415; 80177

== ENCOUNTER 2019-12-15 01:54 | Inpatient (IN) ==
[2019-12-15 02:09] LABS: Basophils # 0.1 K/mm3 (0-0.2); Basophils % 0.8 % (0.1-2.0); Eosinophils # 0.1 K/mm3 (0.0-0.4); Eosinophils % 0.6 % (0.1-12.0); Hematocrit 44.1 % (37.0-47.0); Hemoglobin 13.9 g/dL (12.2-16.2); Lymphocytes # 1.9 K/mm3 (0.7-4.5); Lymphocytes % 20.3 % (10-50); Mean Corpuscular HGB Conc 31.5 g/dL (31.8-35.4); Mean Corpuscular Volume 86.1 fl (81-99); Monocytes # 0.2 K/mm3 (0.1-1.0); Monocytes % 2.6 % (1.7-9.3); Neutrophils % 75.8 % (37.0-80.0); Platelet Count 395 K/mm3 (142-424); Red Blood Count 5.12 M/mm3 (4.20-5.40); Red Cell Distribution Width 13.8 % (11.5-17.5); White Blood Count 9.2 K/mm3 (4.8-10.8)
[2019-12-15 02:11] LABS: Albumin/Globulin Ratio 0.9 (1.1-1.8); Anion Gap 30.1 mEq/L (5-15); Bilirubin,Total 0.4 mg/dL (0.2-1.0); Calcium 9.1 mg/dL (8.5-10.1); Globulin 4.7 gm/dl (1.3-3.2); Total Protein,Serum 8.7 gm/dL (6.4-8.2)
[2019-12-15 02:16] LABS: ABG Base Excess -21.2 mmol/L (-2.4-2.3); ABG HCO3 7.2 mmhg (22.0-26.0); ABG Oxygen Saturation 98 % (90-100); ABG PO2 112.2 mmhg (80-100); ABG TCO2 7.8 mmhg (23-27)
[2019-12-15 02:17] LABS: Oxygen ROOM AIR %
[2019-12-15 02:18] LABS: ABG PH 7.18 mmol/L (7.35-7.45); Allen's Test Acceptable
[2019-12-15 02:19] LABS: ABG PCO2 19.9 mmhg (35.0-45.0)
[2019-12-15 03:00] LABS: Microscopic, Urine URINE MICROSCOPIC (MICROSCOPIC)
[2019-12-15 03:04] LABS: Appearance,Urine CLEAR (Clear); Bilirubin,Urine Negative (Negative); Blood, Urine TRACE-I (Negative); Color,Urine YELLOW (Yellow); Glucose,Urine (UA) 2+ (Negative); Ketones,Urine 3+ (Negative); Leukocyte Esterase,Urine Negative (Negative); PH,Urine 5.5 (5.0-8.5); Protein,Urine 1+ (Negative); Specific Gravity, Urine >= 1.030 (1.005-1.030); Urobilinogen,Urine 0.2 EU/dl (0.2)
[2019-12-15 03:14] LABS: Bacteria,Urine 1+ /lpf; Mucus,Urine 1+ /lpf; RBC,Urine Occasional #/hpf (0-3)
--- NOTE | 2019-12-15 03:40 | Emergency Department Note ---
ED Disposition Clinical Impression: DKA (diabetic ketoacidoses) Qualifiers: Diabetes mellitus type: type 1 Diabetes mellitus complication detail: without coma Qualified Code(s): E10.10 - Type 1 diabetes mellitus with ketoacidosis without coma Diabetes mellitus, insulin dependent (IDDM), uncontrolled Qualifiers: Glycemic state: with hyperglycemia Qualified Code(s): E10.65 - Type 1 diabetes mellitus with hyperglycemia Disposition: Admitted As Inpatient Condition on Discharge: Serious Instructions: DI for Diarrhea and Traveler's Diarrhea -- Adult, DI for Diarrhea and Traveler's Diarrhea -- Child, DI for Nausea -- Adult, DI for Nausea -- Child Referrals: Provider,Referral, MD [Primary Care Provider] - - Critical Care Critical Care Time: Yes Attestation: On 12/15/19, the high probability of a clinically significant, sudden or life threatening deterioration of the following system(s) required my full and direct attention, intervention and personal management. The time I documented below is in addition to time spent performing reported procedures but includes the following listed in this critical care notation. Total Critical Care Time: 60 Vital system(s) involved:: Metabolic Failure My critical care processes included: Assessment & monitoring of V/S, Initial and Re-exams, Coordinating Care, Medication Orders and management, Documentation Medical Decision Making - Medical Records Medical records reviewed: Yes: I reviewed the patient's medical records. - Jamari Inquiry Pt receiving controlled substance: No Vital Signs: 12/15/19 01:45 12/15/19 02:59 Temperature 98.2 F Temperature Source Oral Pulse Rate [Right Brachial] 119 H 101 H Respiratory Rate 14 18 Blood Pressure [Right Arm] 131/91 H 130/70 Blood Pressure Mean [Right Arm] 104 90 Blood Pressure Source [Right Arm] Automatic Cuff Blood Pressure Position [Right Arm] Sitting 02 Sat by Pulse Oximetry 98 95 Oxygen Delivery Method Room Air Room Air - Lab Data Lab results reviewed: Yes: I reviewed the patient's lab results. Lab Results 12/15/19 01:52: WBC 9.2, RBC 5.12, Hgb 13.9, Hct 44.1, MCV 86.1, MCH 27.1, MCHC 31.5 L, RDW 13.8, Plt Count 395, MPV 9.0, Neut % (Auto) 75.8, Lymph % (Auto) 20.3, Harris % (Auto) 2.6, Eos % (Auto) 0.6, Baso % (Auto) 0.8, Neut # (Auto) 7.0, Lymph # (Auto) 1.9, Harris # (Auto) 0.2, Eos # (Auto) 0.1, Baso # (Auto) 0.1 12/15/19 01:52: Sodium 131 L, Potassium 4.1, Chloride 94 L, Carbon Dioxide 11 L, Anion Gap 30.1 H, BUN 15, Creatinine 0.98, Estimated Creat Clear 122, Estimated GFR 68, Est GFR ( Amer) 82, Glucose 387 H, Calcium 9.1, Total Bilirubin 0.4, AST 10 L, ALT 15, Alkaline Phosphatase 192 H, Total Protein 8.7 H, Albumin 4.0, Globulin 4.7 H, Albumin/Globulin Ratio 0.9 L, Amylase 55, Lipase 113 12/15/19 01:52: Acetone Level Moderate 12/15/19 02:13: Specimen Source Right radial, O2 % Room air, ABG pH 7.18 L*, ABG pCO2 19.9 L, ABG pO2 112.2 H, ABG HCO3 7.2 L, ABG Total CO2 7.8 L, ABG O2 Saturation 98, ABG Base Excess -21.2 L, Agustin Test Acceptable 12/15/19 02:38: Urine Color Yellow, Urine Appearance Clear, Urine pH 5.5, Ur Specific [place] >= 1.030, Urine Protein 1+, Urine Glucose (UA) 2+, Urine Ketones 3+, Urine Blood Trace-i, Urine Nitrate Negative, Urine Bilirubin Negative, Urine Urobilinogen 0.2, Ur Leukocyte Esterase Negative, Urine RBC Occasional, Urine WBC 3-5, Ur Squamous Epith Cells 5-10, Urine Bacteria 1+, Urine Mucus 1+ Result diagrams: 12/15/19 01:52 12/15/19 01:52 Orders (Tests/Meds): ED MEDICATIONS Generic Name Dose Route Start Last Admin Trade Name Freq PRN Reason Stop Dose Admin Sodium Chloride 1,000 mls @ 999 mls/hr 12/15/19 03:00 12/15/19 02:52 Sod Chlor 0.9% 1000ml Bag IV 12/15/19 04:00 999 mls/hr .[id number] DALIA Administration Discontinued Medications Generic Name Dose Route Start Last Admin Trade Name Freq PRN Reason Stop Dose Admin Ondansetron HCl 4 mg 12/15/19 02:50 12/15/19 02:51 Zofran 4mg/2ml Vial IV 12/15/19 02:51 4 mg ONCE ONE Administration Sodium Bicarbonate 50 meq 12/15/19 02:18 12/15/19 02:49 Sodium Bicarbonate 8.4% 50ml Syringe IV 12/15/19 02:19 50 meq ONCE ONE Administration ORDERS Category Date Time Status XR chest portable Stat Exams 12/15/19 01:59 Ordered VBG [Venous Blood Gas] Stat RT 12/15/19 01:50 Ordered - Radiology Data #1 Image(s): Chest Image Reviewed: Yes I reviewed the patient's radiology image - Physician Consults Physician Consulted: mirtha Reason -: Admission Nausea/Vomiting/Diarrhea HPI - General Chief complaint: Nausea/Vomiting/Diarrhea Stated complaint: n/v Time Seen by Provider: 12/15/19 02:00 Mode of Arrival: EMS Source of Information: Patient, EMS, Medical Record Limitations: No Limitations Description of Symptoms (Recalled from ER Triage Doc. by RN): nausea and vomiting since today - History of Present Illness HPI Narrative: wf with n/v and iddm with progressive sob -no fever or productive cough MD complaint: nausea, vomiting Onset (ago): day(s) Associated Abdominal Pain: No Associated symptoms: nausea/vomiting - Related Data Home Medications Medication Instructions Recorded Confirmed Venlafaxine HCl [Effexor 37.5mg 37.5 mg PO DAILY 04/05/18 12/15/19 tablet] Melatonin 10 mg PO HS 11/03/18 12/15/19 OXcarbazepine [Trileptal 300mg 1,200 mg PO BID 11/03/18 12/15/19 tablet] methocarbamoL [Methocarbamol 500mg 500 mg PO Q8HP PRN 11/09/18 12/15/19 Tablet] Metformin HCl 500 mg PO BID 06/11/19 12/15/19 Sennosides/Docusate Sodium 2 each PO HS 06/11/19 12/15/19 [Docusate Sodium-Senna Tablet] Omeprazole 20 mg PO DAILY 06/12/19 12/15/19 Amoxicillin/Potassium Clav 1 tab PO BID 12/15/19 12/15/19 [Augmentin 875-125 Tablet] Previous Rx's Medication Instructions Recorded levetiracetam 500 mg tablet 2,500 mg PO BID #60 tab 08/24/18 Apixaban [Eliquis] 5 mg PO BID #60 tab 09/10/18 Insulin Glargine,Hum.rec.anlog 50 unit SQ HS #0 02/19/19 [Basaglar Kwikpen U-100] Insulin Lispro [Humalog Kwikpen 25 unit SUB-Q AC #0 02/19/19 U-100] Allergies Allergy/AdvReac Type Severity Reaction Status Date / Time buspirone [BUSPIRONE] Allergy Unknown Verified 04/01/19 00:47 nitrofurantoin Allergy Unknown Verified 04/01/19 00:47 [NITROFURANTOIN] sulfamethoxazole Allergy Unknown Verified 04/01/19 00:47 [From BACTRIM] topiramate [From TOPAMAX] Allergy Unknown Verified 04/01/19 00:47 trimethoprim [From BACTRIM] Allergy Unknown Verified 04/01/19 00:47 adhesive tape AdvReac Intermediate SKIN Verified 04/01/19 00:47 [facility] History - Hepatitis A Screen Drug use history?: No High risk sexual behaviors?: No History of sexually transmitted infection?: No Currently employed?: No Childcare worker?: No Do you have indoor plumbing?: Yes Do you have electricity?: Yes Attestation statement:: This patient has been screened for Hepatitis A risk factors. I have reviewed the patient's past medical history: Yes Medical History: Reports:: Arrhythmia, Deep Vein Thrombosis, Depression, Diabetes Mellitus Type 1, MRSA, Palpitations, Pulmonary Embolism, Seizures Denies:: Cancer, Diabetes Mellitus Type 2, Internal Pacemaker Other Medical History: Reports: Anemia, Other. Denies: Blood Transfusion Reaction Laterality Cases: Bilateral: Other Other Surgeries: Yes: Appendectomy, Cholecystectomy, Dilation and Curettage, Hysterectomy-Partial ("everything but left ovary"), Tubal Ligation, Other (ablation). No: Pacemaker Amputation: No Fractures: No Comment: Ablation 10/30/2016 - Social History Educational Level: Completed High School Smoking Status: Unknown if ever smoked Tobacco Type: cigarettes # Packs/Day (cigarettes): 1 #Yrs smoked (if former smoker): 4 Alcohol Intake: never Alcohol Intake Frequency:: holidays/special occasions only Substance Use Type: former substance user Occupational Status: disabled Housing: apartment Household Members: significant other Comment: Marked medical noncompliance - Psychiatric History Pschychiatric History:: Reports:: Depression Family Hx:: Anemia, Asthma, Cancer, Diabetes, Heart Attack, Hyperlipidemia, Hypertension, Kidney Disease, Stroke, Thyroid Disorder ROS Obtained: Yes All systems reviewed & no additional complaints - Constitutional Constitutional: Denies fever(s), Reports weakness - Eyes Eyes: Denies change in vision - ENT Ears, Nose, Mouth, and Throat: Denies sore throat - Cardiovascular Cardiovascular: Denies chest pain - Respiratory Respiratory: No cough - Gastrointestinal Gastrointestingal: Reports: as per HPI, nausea, vomiting. Denies: abdominal pain, diarrhea - Genitourinary Female Genitourinary: Denies hematuria - Musculoskeletal Musculoskeletal: Denies joint swelling - Integumentary/Breasts Skin/Breast: Denies rash - Neurologic Neurologic: Denies focal weakness, Denies seizure-like activity Physical Exam - General General appearance: alert, in no apparent distress - Head Head exam: normocephalic - Eye Eye exam: Present: PERRL, EOMI. Absent: scleral icterus - ENT ENT exam: Present: mucous membranes dry - Neck Neck exam: Present: trachea midline - Respiratory Respiratory exam: Present: normal lung sounds bilaterally. Absent: respiratory distress - Cardiovascular Cardiovascular exam: Present: regular rate, systolic murmur - Abdominal Exam Abdominal exam: Present: soft - Extremities Exam Extremities exam: Present: full ROM - Neurological Exam Neurological exam: Present: alert, CN II-XII intact - Psychiatric Psychiatric exam: Present: anxious - Skin Skin exam: Absent: rash
[2019-12-15 06:48] LABS: Anion Gap 27.3 mEq/L (5-15); Calcium 8.3 mg/dL (8.5-10.1); Phosphorous 2.7 mg/dL (2.4-4.9)
--- NOTE | 2019-12-15 07:24 | Pharmacy Consult Notes ---
[facility] Pharmacy VTE Monitoring - Patient Demographics Admission date: 12/15/19 Report Date: 12/15/19 Time: 07:24 Allergies/Adverse Reactions: Patient Allergies buspirone [BUSPIRONE] Allergy (Severe, Verified 12/15/19 05:31) Seizure nitrofurantoin [NITROFURANTOIN] Allergy (Severe, Verified 12/15/19 05:31) Seizure sulfamethoxazole [From BACTRIM] Allergy (Severe, Verified 12/15/19 05:31) Seizure trimethoprim [From BACTRIM] Allergy (Severe, Verified 12/15/19 05:31) Seizure topiramate [From TOPAMAX] Allergy (Unknown, Verified 12/15/19 05:31) adhesive tape Adverse Reaction (Intermediate, Verified 04/01/19 00:47) SKIN IRRITATION Height: 1.6 m Weight: 79.067 kg Patient Problems: Current Active Problems DKA (diabetic ketoacidoses) (Acute) Diabetes mellitus, insulin dependent (IDDM), uncontrolled (Chronic) - VTE Risk Labs: VTE Related Lab Results Hgb 13.9 g/dL (12.2-16.2) 12/15/19 01:52 Hct 44.1 % (37.0-47.0) 12/15/19 01:52 Plt Count 395 K/mm3 (142-424) 12/15/19 01:52 BUN 14 mg/dL (7-18) 12/15/19 06:00 Creatinine 0.91 mg/dL (0.55-1.02) 12/15/19 06:00 Estimated Creat Clear 115 mL/min (50-200) 12/15/19 06:00 Was VTE Risk Assessment Performed: Yes VTE Score: 3 VTE Risk Level: Low Risk - Prophylaxis VTE Prophylaxis Ordered?: Yes Types of VTE Prophylaxis: TEDS Knee High Location of Applied Device: Bilateral Lower Extremeties
--- NOTE | 2019-12-15 08:36 | History & Physical Report ---
*Admission Date: 12/15/19 *Chief complaint: Nausea and vomiting *History of present illness: Ms. Bolton is a 29-year-old female well-known to our office with long history of type 1 diabetes, seizure disorder, obesity, and poor medication compliance. She presented to the ER yesterday due to onset of nausea, vomiting, abdominal pain. She initially stated the pain began the afternoon before coming to the ER however on further questioning she reports that it has been going on with poor tolerance of p.o. intake due to nausea for approximately 3 days. Initial work- up showed concern for DKA and high anion gap metabolic acidosis. She was admitted for DKA protocol, fluid resuscitation, insulin drip. On exam this morning she was noted to have some improvement per her report and her abdominal symptoms and tolerating p.o. fluids. Additionally reports that she was recently treated for a sinusitis with a 10-day course of amoxicillin. This was diagnosed by a [facility]. She has not been seen in our office since July 2019. She has been admitted to [facility] at least once for DKA since last seen in our office and has not come to us for follow-up. 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 I have strong concern for her ability to continue to manage her disorder. Denies chest pain, shortness of breath; complains of nausea, abdominal pain; Denies diarrhea, syncope, changes in vision; Complains of headache [facility] History I have reviewed the patient's past medical history: Yes Medical History: Reports:: Arrhythmia, Deep Vein Thrombosis, Depression, Diabetes Mellitus Type 1, MRSA, Palpitations, Pulmonary Embolism, Seizures Denies:: Cancer, Diabetes Mellitus Type 2, Internal Pacemaker *Have you ever received a pneumonia vaccine?: No *Have you received a flu vaccine this season?: No Other Medical History: Reports: Anemia, Other. Denies: Blood Transfusion Reaction Laterality Cases: Bilateral: Other Other Surgeries: Yes: Appendectomy, Cholecystectomy, Dilation and Curettage, Hysterectomy-Partial ("everything but left ovary"), Tubal Ligation, Other (ablation). No: Pacemaker Amputation: No Fractures: No - *Social History Educational Level: Completed High School Smoking Status: Former smoker Tobacco Type: cigarettes # Packs/Day (cigarettes): 1 #Yrs smoked (if former smoker): 4 Alcohol Intake: current Alcohol Intake Frequency:: holidays/special occasions only Substance Use Type: former substance user *Occupational Status:: disabled Housing: apartment Household Members: significant other *Travel in the last 8 weeks: None - Psychiatric History Pschychiatric History:: Reports:: Depression Family Hx:: Anemia, Asthma, Cancer, Diabetes, Heart Attack, Hyperlipidemia, Hypertension, Kidney Disease, Stroke, Thyroid Disorder Review of Systems - Review of Systems Review of systems:: pertinent systems reviewed and negative unless documented below (14 point review of systems obtained, pertinent positives/negatives reviewed per HPI) - *Neurologic Reports weakness, Denies localized weakness, Denies seizure-like activity Meds Home Medications Medication Instructions Recorded Confirmed Type Apixaban [Eliquis] 5 mg PO BID #60 tab 09/10/18 12/15/19 Rx Melatonin 10 mg PO HS 11/03/18 12/15/19 History OXcarbazepine [Trileptal 300mg 1,200 mg PO BID 11/03/18 12/15/19 History tablet] methocarbamoL [Methocarbamol 500mg 500 mg PO Q8HP PRN 11/09/18 12/15/19 History Tablet] Insulin Glargine,Hum.rec.anlog 50 unit SQ HS #0 02/19/19 12/15/19 Rx [Basaglar Kwikpen U-100] Insulin Lispro [Humalog Kwikpen 25 unit SUB-Q AC #0 02/19/19 12/15/19 Rx U-100] Metformin HCl 500 mg PO BID 06/11/19 12/15/19 History Sennosides/Docusate Sodium 2 each PO HSP PRN 06/11/19 12/15/19 History [Docusate Sodium-Senna Tablet] Omeprazole 20 mg PO DAILY 06/12/19 12/15/19 History Venlafaxine HCl [Effexor XR 75mg 75 mg PO DAILY 12/15/19 12/15/19 History capsule] levETIRAcetam [Levetiracetam] 2,000 mg PO BID 12/15/19 12/15/19 History Allergies Allergy/AdvReac Type Severity Reaction Status Date / Time buspirone [BUSPIRONE] Allergy Severe Seizure Verified 12/15/19 05:31 nitrofurantoin Allergy Severe Seizure Verified 12/15/19 05:31 [NITROFURANTOIN] sulfamethoxazole Allergy Severe Seizure Verified 12/15/19 05:31 [From BACTRIM] trimethoprim [From BACTRIM] Allergy Severe Seizure Verified 12/15/19 05:31 topiramate [From TOPAMAX] Allergy Unknown Verified 12/15/19 05:31 adhesive tape AdvReac Intermediate SKIN Verified 04/01/19 00:47 IRRITATION Exam Vital signs and Labs for Last 24 Hours: Temp Pulse Resp BP Pulse Ox 98.3 F 92 H 18 134/74 99 12/15/19 07:58 12/15/19 06:00 12/15/19 06:00 12/15/19 06:00 12/15/19 06:00 Laboratory Results - last 24 hr 12/15/19 01:52: WBC 9.2, RBC 5.12, Hgb 13.9, Hct 44.1, MCV 86.1, MCH 27.1, MCHC 31.5 L, RDW 13.8, Plt Count 395, MPV 9.0, Neut % (Auto) 75.8, Lymph % (Auto) 20.3, Josephine % (Auto) 2.6, Eos % (Auto) 0.6, Baso % (Auto) 0.8, Neut # (Auto) 7.0, Lymph # (Auto) 1.9, Josephine # (Auto) 0.2, Eos # (Auto) 0.1, Baso # (Auto) 0.1 12/15/19 01:52: Sodium 131 L, Potassium 4.1, Chloride 94 L, Carbon Dioxide 11 L, Anion Gap 30.1 H, BUN 15, Creatinine 0.98, Estimated Creat Clear 122, Estimated GFR 68, Est GFR ( Amer) 82, Glucose 387 H, Calcium 9.1, Total Bilirubin 0.4, AST 10 L, ALT 15, Alkaline Phosphatase 192 H, Total Protein 8.7 H, Albumin 4.0, Globulin 4.7 H, Albumin/Globulin Ratio 0.9 L, Amylase 55, Lipase 113 12/15/19 01:52: Acetone Level Moderate 12/15/19 02:13: Specimen Source Right radial, O2 % Room air, ABG pH 7.18 L*, ABG pCO2 19.9 L, ABG pO2 112.2 H, ABG HCO3 7.2 L, ABG Total CO2 7.8 L, ABG O2 Saturation 98, ABG Base Excess -21.2 L, Agustin Test Acceptable 12/15/19 02:38: Urine Color Yellow, Urine Appearance Clear, Urine pH 5.5, Ur Specific [place] >= 1.030, Urine Protein 1+, Urine Glucose (UA) 2+, Urine Ketones 3+, Urine Blood Trace-i, Urine Nitrate Negative, Urine Bilirubin Negative, Urine Urobilinogen 0.2, Ur Leukocyte Esterase Negative, Urine RBC Occasional, Urine WBC 3-5, Ur Squamous Epith Cells 5-10, Urine Bacteria 1+, Urine Mucus 1+ 12/15/19 06:00: Sodium 135 L, Potassium 4.3, Chloride 102, Carbon Dioxide 10 L, Anion Gap 27.3 H, BUN 14, Creatinine 0.91, Estimated Creat Clear 115, Estimated GFR 74, Est GFR ( Amer) 89, Glucose 268 H D, Calcium 8.3 L, Phosphorus 2.7, Magnesium 1.6 I & O for Last 24 hours: Intake & Output 12/12/19 12/13/19 12/14/19 12/15/19 23:59 23:59 23:59 23:59 Intake Total 2800 / 2800 Output Total 1200 / 1200 Balance 1600 / 1600 Weight 79.067 kg - Constitutional mild distress, obese, chronically ill appearing - *Routine HEENT Exam Head: Present: normocephalic ENT: Present: mucous membranes moist Comments: 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 Absent: lymphadenopathy - Routine Chest/Breast/Axilla Exam Comments: Port-A-Cath in right upper chest, accessed by IV at this time. Nontender - *Routine Respiratory Exam Present: CTA bilaterally - *Routine Cardiovascular Exam Present: Normal S1, Normal S2, tachycardia. Absent: murmur - *Routine Abdominal Exam Present: soft, normoactive bowel sounds, tenderness (Diffuse nonfocal tenderness) - *Routine Extremities Exam Absent: cyanosis, clubbing, edema - *Routine Skin Exam Present: intact. Absent: cyanosis, erythema Comments: Multiple tattoos on extremities - *Routine Neurological Exam Present: alert, oriented X3 Assessment and Plan (1) Obesity (BMI 30.0-34.9) Current visit: Yes Status: Chronic Category: Medical Code(s): E66.9 - Obesity, unspecified Complicates all aspects of her care. (2) DKA (diabetic ketoacidoses) Current visit: Yes Status: Acute Qualifiers: Diabetes mellitus type: type 1 Diabetes mellitus complication detail: without coma Qualified Code(s): E10.10 - Type 1 diabetes mellitus with ketoacidosis without coma Category: Medical Code(s): E11.10 - Type 2 diabetes mellitus with ketoacidosis without coma (3) Diabetes mellitus, insulin dependent (IDDM), uncontrolled Problem details: Patient is a long-standing diabetic, insulin-dependent. Has had challenges with being compliant in the past. Glucose better controlled during admission. Restarted her regimen. Plan for close follow-up in the next 5-7 days in our clinic. Had dietary do some diabetic counseling with patient prior to discharge. Current visit: Yes Status: Chronic Qualifiers: Glycemic state: with hyperglycemia Qualified Code(s): E10.65 - Type 1 diabetes mellitus with hyperglycemia Category: Medical Code(s): E10.65 - Type 1 diabetes mellitus with hyperglycemia (4) Hx of pulmonary embolus Current visit: No Status: Chronic Category: Medical Code(s): Z86.711 - Personal history of pulmonary embolism Continue oral anticoagulant (5) Intractable vomiting with nausea Current visit: No Status: Acute Category: Medical Code(s): R11.2 - Nausea with vomiting, unspecified Antiemetics as needed, anticipate improvement with resolution of DKA and fluid resuscitation (6) DAVIDA (acute kidney injury) Current visit: No Status: Acute Category: Medical Code(s): N17.9 - Acute kidney failure, unspecified Secondary to volume depletion/prerenal. Monitor for improvement with fluid resuscitation. Baseline normal proximally 1 (7) High anion gap metabolic acidosis Current visit: No Status: Resolved Category: Medical Code(s): E87.2 - Acidosis - Assessment and plan all Dx Assessment and Plan for all problems:: 29-year-old female with type 1 diabetes, seizure disorder and poor medication compliance, presents with DKA and problems as listed above. Initiated on protocol. Fluid resuscitation and insulin drip per protocol. Will transition to basal bolus regimen when gap closes. Continue to treat nausea as needed. Will replace electrolytes PRN. Continue home treatment for pulmonary emboli and seizure disorder. Have strong concern for patient's compliance once discharged home. Given her no-show rate in our office, she has had 6 missed appointments in the past 12 months, I have concern for her ability to manage her medical conditions. We will plan to see her for at least 1 posthospitalization discharge, however if unable to be compliant with visits, we will unfortunately no longer be able to see her. We will try and establish her with an supervisor benzene refining however have had difficulty doing this in the past due to not showing for appointments.
[2019-12-15 10:35] LABS: Anion Gap 18.3 mEq/L (5-15); Calcium 8.2 mg/dL (8.5-10.1)
[2019-12-15 14:35] LABS: Anion Gap 14.6 mEq/L (5-15); Calcium 8.6 mg/dL (8.5-10.1)
[2019-12-16 00:08] LABS: Anion Gap 13.9 mEq/L (5-15); Calcium 8.5 mg/dL (8.5-10.1)
[2019-12-16 06:19] LABS: Basophils % 0.4 % (0.1-2.0); Eosinophils # 0.1 K/mm3 (0.0-0.4); Eosinophils % 2.3 % (0.1-12.0); Hematocrit 32.2 % (37.0-47.0); Hemoglobin 10.6 g/dL (12.2-16.2); Lymphocytes # 2.2 K/mm3 (0.7-4.5); Lymphocytes % 36.3 % (10-50); Mean Corpuscular HGB Conc 32.8 g/dL (31.8-35.4); Mean Corpuscular Volume 82.3 fl (81-99); Mean Platelet Volume 8.4 fl (7.4-10.4); Monocytes # 0.3 K/mm3 (0.1-1.0); Monocytes % 4.4 % (1.7-9.3); Neutrophils # 3.4 K/mm3 (1.8-7.8); Neutrophils % 56.6 % (37.0-80.0); Platelet Count 266 K/mm3 (142-424); Red Blood Count 3.91 M/mm3 (4.20-5.40); Red Cell Distribution Width 14.1 % (11.5-17.5)
[2019-12-16 07:18] LABS: Albumin Level 2.8 gm/dL (3.4-5.0); Albumin/Globulin Ratio 0.9 (1.1-1.8); Anion Gap 14.8 mEq/L (5-15); Bilirubin,Total 0.1 mg/dL (0.2-1.0); Calcium 8.1 mg/dL (8.5-10.1); Total Protein,Serum 5.8 gm/dL (6.4-8.2)
[2019-12-16 07:56] VITALS: BP 98/53
--- NOTE | 2019-12-16 10:11 | Discharge Summary ---
General - General Admission date:: 12/15/19 Discharge date: 12/16/19 HPI HPI: Ms. Bolton is a 29-year-old female well-known to our office with long history of type 1 diabetes, seizure disorder, obesity, and poor medication compliance. She presented to the ER yesterday due to onset of nausea, vomiting, abdominal pain. She initially stated the pain began the afternoon before coming to the ER however on further questioning she reports that it has been going on with poor tolerance of p.o. intake due to nausea for approximately 3 days. Initial work- up showed concern for DKA and high anion gap metabolic acidosis. She was admitted for DKA protocol, fluid resuscitation, insulin drip. On exam this morning she was noted to have some improvement per her report and her abdominal symptoms and tolerating p.o. fluids. Additionally reports that she was recently treated for a sinusitis with a 10-day course of amoxicillin. This was diagnosed by a [facility]. She has not been seen in our office since July 2019. She has been admitted to [facility] at least once for DKA since last seen in our office and has not come to us for follow-up. She does not see an paper stripper for her diabetes. I have strong concern for her ability to continue to manage her disorder. Denies chest pain, shortness of breath; complains of nausea, abdominal pain; Denies diarrhea, syncope, changes in vision; Complains of headache Hospital Course Hospital Course: Admitted for DKA. Started on DKA protocol. Patient's anion gap closed within the first day of admission as we were able to transition to basal bolus regimen by the afternoon. Tolerating good p.o. intake with resolution of acute kidney injury and electrolyte abnormalities as well. Patient received a total of 40 units of basal insulin (insulin glargine) in the evening. Has required sliding scale insulin with 5 to 25 units required depending on the meal. Reports previously she was on 50 units of glargine but only taking 40 at night. When she is sick and not eating even if her blood sugars are high she does not dose herself short acting insulin. She additionally will give herself 24 units of insulin with meals and is supposed to do sliding scale but does not add the sliding scale insulin to her doses. On average she reports she is taking 40 of basal and 24 units with each meal for a max of 72 units of short acting. A1c obtained showing 10.6. Well above goal of 7 however better than last check 6 months ago which was in the mid 11 range. Has not been below 10 since we have been caring for her even with multiple adjustments to her therapy. Have strong concern for her compliance and understanding of the severity of her disease. She states significant concern for having low blood sugar however has been admitted approximately 5 times in the past 12 months for DKA to various hospitals. Medically she is stable for discharge home. Do not feel further admission to residential youth counselor on dosing or medication administration would benefit her at this time. We will plan to resume 50 units of Lantus at night. We will have her take 15 units with each meal and resume her sliding scale, stressing the importance of giving the sliding scale along with her mealtime insulin regardless of what she is eating. We will have close follow-up with her this coming week and check her blood sugar log to make further adjustment. Resume home medications for seizure disorder, neuropathy, and other chronic conditions. Has nausea, vomiting, chest pain, shortness of breath. Complained of some loose stools this morning but otherwise eating well today. 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 Absent: lymphadenopathy - Routine Chest/Breast/Axilla Exam Comments: Port-A-Cath in right upper chest, accessed by IV at this time. Nontender - *Routine Respiratory Exam Present: CTA bilaterally - *Routine Cardiovascular Exam Present: Normal S1, Normal S2, RRR, no murmur - *Routine Abdominal Exam Present: soft, normoactive bowel sounds, no tenderness - *Routine Extremities Exam Absent: cyanosis, clubbing, edema - *Routine Skin Exam Present: intact. Absent: cyanosis, erythema Comments: Multiple tattoos on extremities - *Routine Neurological Exam Present: alert, oriented X3 Results Labs on day of discharge: Labs from last 24 hours 12/16/19 12/16/19 12/16/19 06:15 05:45 05:45 WBC 6.0 D RBC 3.91 L Hgb 10.6 L Hct 32.2 L MCV 82.3 MCH 27.0 MCHC 32.8 RDW 14.1 Plt Count 266 D MPV 8.4 Neut % (Auto) 56.6 Lymph % (Auto) 36.3 Wise % (Auto) 4.4 Eos % (Auto) 2.3 Baso % (Auto) 0.4 Neut # (Auto) 3.4 Lymph # (Auto) 2.2 Wise # (Auto) 0.3 Eos # (Auto) 0.1 Baso # (Auto) 0.0 Sodium 136 Potassium 3.8 Chloride 104 Carbon Dioxide 21 Anion Gap 14.8 BUN 10 D Creatinine 0.72 D Estimated Creat Clear 149 Estimated GFR 96 Est GFR ( Amer) 117 D Glucose 163 H D POC Glucose 160 H Hemoglobin A1c Calcium 8.1 L Magnesium 1.5 Total Bilirubin 0.1 L AST 11 L ALT 13 Alkaline Phosphatase 136 H Total Protein 5.8 L D Albumin 2.8 L D Globulin 3.0 Albumin/Globulin Ratio 0.9 L Acetone Level 12/16/19 12/15/19 12/15/19 05:45 23:50 23:02 WBC RBC Hgb Hct MCV MCH MCHC RDW Plt Count MPV Neut % (Auto) Lymph % (Auto) Wise % (Auto) Eos % (Auto) Baso % (Auto) Neut # (Auto) Lymph # (Auto) Wise # (Auto) Eos # (Auto) Baso # (Auto) Sodium 132 L Potassium 3.9 Chloride 101 Carbon Dioxide 21 Anion Gap 13.9 BUN 14 D Creatinine 0.93 Estimated Creat Clear 112 Estimated GFR 72 Est GFR ( Amer) 87 Glucose 301 H D POC Glucose 318 H* Hemoglobin A1c 10.9 H Calcium 8.5 Magnesium Total Bilirubin AST ALT Alkaline Phosphatase Total Protein Albumin Globulin Albumin/Globulin Ratio Acetone Level 12/15/19 12/15/19 12/15/19 21:03 16:55 15:03 WBC RBC Hgb Hct MCV MCH MCHC RDW Plt Count MPV Neut % (Auto) Lymph % (Auto) Wise % (Auto) Eos % (Auto) Baso % (Auto) Neut # (Auto) Lymph # (Auto) Wise # (Auto) Eos # (Auto) Baso # (Auto) Sodium Potassium Chloride Carbon Dioxide Anion Gap BUN Creatinine Estimated Creat Clear Estimated GFR Est GFR ( Amer) Glucose POC Glucose 408 H* 148 H 226 H Hemoglobin A1c Calcium Magnesium Total Bilirubin AST ALT Alkaline Phosphatase Total Protein Albumin Globulin Albumin/Globulin Ratio Acetone Level 12/15/19 12/15/19 12/15/19 14:10 14:10 13:03 WBC RBC Hgb Hct MCV MCH MCHC RDW Plt Count MPV Neut % (Auto) Lymph % (Auto) Wise % (Auto) Eos % (Auto) Baso % (Auto) Neut # (Auto) Lymph # (Auto) Wise # (Auto) Eos # (Auto) Baso # (Auto) Sodium 133 L Potassium 3.6 Chloride 102 Carbon Dioxide 20 L Anion Gap 14.6 BUN 11 Creatinine 1.04 H Estimated Creat Clear 101 Estimated GFR 63 Est GFR ( Amer) 76 Glucose 208 H POC Glucose 254 H Hemoglobin A1c Calcium 8.6 Magnesium Total Bilirubin AST ALT Alkaline Phosphatase Total Protein Albumin Globulin Albumin/Globulin Ratio Acetone Level Small 12/15/19 12/15/19 11:01 10:05 WBC RBC Hgb Hct MCV MCH MCHC RDW Plt Count MPV Neut % (Auto) Lymph % (Auto) Wise % (Auto) Eos % (Auto) Baso % (Auto) Neut # (Auto) Lymph # (Auto) Wise # (Auto) Eos # (Auto) Baso # (Auto) Sodium 133 L Potassium 4.3 Chloride 102 Carbon Dioxide 17 L D Anion Gap 18.3 H BUN 10 D Creatinine 0.94 Estimated Creat Clear 111 Estimated GFR 71 Est GFR ( Amer) 86 Glucose 180 H D POC Glucose 188 H Hemoglobin A1c Calcium 8.2 L Magnesium Total Bilirubin AST ALT Alkaline Phosphatase Total Protein Albumin Globulin Albumin/Globulin Ratio Acetone Level DS: Diagnosis - Discharge Diagnosis (1) Obesity (BMI 30.0-34.9) Status: Chronic Problem details: complicates all aspects of her care. (2) DKA (diabetic ketoacidoses) Status: Resolved (3) Diabetes mellitus, insulin dependent (IDDM), uncontrolled Status: Chronic Problem details: Patient is a long-standing diabetic, insulin- dependent. Has had challenges with being compliant in the past. Glucose better controlled during admission. Restarted her regimen. Plan for close follow-up in the next 5-7 days in our clinic. Had dietary do some diabetic counseling with patient prior to discharge. (4) Hx of pulmonary embolus Status: Chronic (5) Intractable vomiting with nausea Status: Resolved (6) DAVIDA (acute kidney injury) Status: Resolved (7) High anion gap metabolic acidosis Status: Resolved Discharge Plan - Patient Discharge Instructions ACTIVITY: Continue current activity DIET: diabetic diet Patient Instructions: Taking Care of Your Diabetes When You Are Sick, Diabetic Ketoacidosis, DI for Diabetic Ketoacidosis - Follow up Plan Follow up with: Srini Ayala MD [Staff Physician] - 1 week Disposition: Home, Self-Skilled Nursing Medications: Home Medications Medication Instructions Recorded Confirmed Type Apixaban [Eliquis] 5 mg PO BID #60 tab 09/10/18 12/15/19 Rx Melatonin 10 mg PO HS 11/03/18 12/15/19 History OXcarbazepine [Trileptal 300mg 1,200 mg PO BID 11/03/18 12/15/19 History tablet] methocarbamoL [Methocarbamol 500mg 500 mg PO Q8HP PRN 11/09/18 12/15/19 History Tablet] Insulin Glargine,Hum.rec.anlog 50 unit SQ HS #0 02/19/19 12/15/19 Rx [Basaglar Kwikpen U-100] Insulin Lispro [Humalog Kwikpen 25 unit SUB-Q AC #0 02/19/19 12/15/19 Rx U-100] Metformin HCl 500 mg PO BID 06/11/19 12/15/19 History Sennosides/Docusate Sodium 2 each PO HSP PRN 06/11/19 12/15/19 History [Docusate Sodium-Senna Tablet] Omeprazole 20 mg PO DAILY 06/12/19 12/15/19 History Venlafaxine HCl [Effexor XR 75mg 75 mg PO DAILY 12/15/19 12/15/19 History capsule] levETIRAcetam [Levetiracetam] 2,000 mg PO BID 12/15/19 12/15/19 History Prescriptions/Medication Reconciliation: Continued Apixaban [Eliquis] 5 mg PO BID #60 tab OXcarbazepine [Trileptal 300mg tablet] 1,200 mg PO BID methocarbamoL [Methocarbamol 500mg Tablet] 500 mg PO Q8HP PRN PRN Reason: MUSCLE SPASMS levETIRAcetam [Levetiracetam] 2,000 mg PO BID Venlafaxine HCl [Effexor XR 75mg capsule] 75 mg PO DAILY Melatonin 10 mg PO HS Insulin Glargine,Hum.rec.anlog [Basaglar Kwikpen U-100] 50 unit SQ HS #0 Sennosides/Docusate Sodium [Docusate Sodium-Senna Tablet] 2 each PO HSP PRN PRN Reason: Constipation Omeprazole 20 mg PO DAILY Changed Metformin HCl 500 mg PO DAILY #0 Insulin Lispro [Humalog Kwikpen U-100] 15 unit SUB-Q AC #1 - Problem Reconciliation Problems Reviewed?: Yes
== END 2019-12-16 14:24 | disposition home or self-care (01) | DRG 638 ==
LOC: ER 01:54 → 2ND 03:54
PROVIDERS: ADMIT Family Medicine; ATTEND Internal Medicine Adolescent Medicine
CPT/HCPCS: 36415; 71010; 71045; 80048; 80053; 81001; 82009; 82150; 82803; 82962; 83036; 83690; 83735; 84100; 85025; 96365; 96366; 96367; 99284; J1642; J2405

== ENCOUNTER → 2019-12-22 12:12 | Outpatient (CLI) | payer OTHER, SELFPAY ==
[2019-12-22 13:56] LABS: Free Thyroxine Index 1.6 ug/dL (5.93-13.13); T4 (Thyroxine) 5.1 ug/dl (4.7-13.3); Thyroid Stimulating Hormone 1.78 uIU/ml (0.358-3.740); Triiodothryronine (T3) Uptake 31 % (31-39)
[2019-12-23 06:09] LABS: DHEA-Sulfate 98.1 ug/dL (84.8-378.0)
[2019-12-23 09:46] LABS: FSH 4.5 mIU/mL (.); LH 8.1 mIU/mL (.)
== END ==
PROVIDERS: Visit Provider Internal Medicine Adolescent Medicine
DX: N95.1 Menopausal and female climacteric states (principal)
CPT/HCPCS: 36415; 82626; 83001; 83002; 84436; 84443; 84479

== ENCOUNTER 2020-01-28 15:26 | Inpatient (IN) ==
--- NOTE | 2020-01-28 15:34 | Emergency Department Note ---
ED Disposition Clinical Impression: Metabolic acidosis, Type 1 diabetes mellitus with hyperglycemia, Generalized weakness, Intractable nausea and vomiting, Medical non-compliance DKA (diabetic ketoacidoses) Qualifiers: Diabetes mellitus type: type 1 Diabetes mellitus complication detail: without coma Qualified Code(s): E10.10 - Type 1 diabetes mellitus with ketoacidosis without coma Sepsis Qualifiers: Sepsis type: sepsis due to unspecified organism Sepsis acute organ dysfunction status: without acute organ dysfunction Qualified Code(s): A41.9 - Sepsis, unspecified organism Disposition: Admitted As Inpatient Condition on Discharge: Serious Additional Instructions: Patient was admitted to floor under Dr. Ayala through Dr. Ponce Referrals: Provider,Referral, [Referring] - Time of Disposition: 17:13 - Critical Care Critical Care Time: Yes Attestation: On 01/28/20, the high probability of a clinically significant, sudden or life threatening deterioration of the following system(s) required my full and direct attention, intervention and personal management. The time I documented below is in addition to time spent performing reported procedures but includes the following listed in this critical care notation. Total Critical Care Time: 45 Vital system(s) involved:: Circulatory Failure, Metabolic Failure, Shock (Septic) My critical care processes included: Assessment & monitoring of V/S, Initial and Re-exams, Data Review/Interpretation, Coordinating Care, Medication Orders and management, Documentation Medical Decision Making - Jamari Inquiry Pt receiving controlled substance: No Vital Signs: 01/28/20 15:26 01/28/20 16:56 Temperature 98.1 F 97.9 F Temperature Source Oral Oral Pulse Rate [Right Radial] 118 H 115 H Respiratory Rate 20 18 Blood Pressure [Right Arm] 136/86 138/73 Blood Pressure Mean [Right Arm] 102 94 02 Sat by Pulse Oximetry 98 98 Oxygen Delivery Method Room Air Room Air - Lab Data Lab results reviewed: Yes: I reviewed the patient's lab results. Lab Results 01/28/20 13:41: Influenza Type A Ag Negative, Influenza Type B Ag Negative 01/28/20 15:29: Urine Color Yellow, Urine Appearance Clear, Urine pH 5.5, Ur Specific Juliette 1.025, Urine Protein Negative, Urine Glucose (UA) 3+, Urine Ketones 3+, Urine Blood Negative, Urine Nitrate Negative, Urine Bilirubin Negative, Urine Urobilinogen 0.2, Ur Leukocyte Esterase Negative, Urine RBC Occasional, Urine WBC 5-10, Ur Squamous Epith Cells 5-10, Urine Bacteria Trace 01/28/20 15:47: ABG pH 7.15 L*, ABG pCO2 26.8 L, ABG pO2 106.5 H, ABG HCO3 9.2 L , ABG Total CO2 10.0 L, ABG O2 Saturation 97, ABG Base Excess -19.6 L 01/28/20 16:05: Amylase 74, Lipase 114 01/28/20 16:05: WBC 13.0 H, RBC 4.89, Hgb 13.1, Hct 42.5, MCV 86.9, MCH 26.8 L, MCHC 30.8 L, RDW 13.6, Plt Count 386, MPV 9.1, Neut % (Auto) 86.1 H, Lymph % (Auto) 11.8, [place]orne % (Auto) 1.4 L, Eos % (Auto) 0.2, Baso % (Auto) 0.4, Neut # (Auto) 11.2 H, Lymph # (Auto) 1.5, [place]orne # (Auto) 0.2, Eos # (Auto) 0.0, Baso # (Auto) 0.1, Total Counted 100, Neutrophils % (Manual) 85 H, Lymphocytes % (Manual) 13, Monocytes % (Manual) 2, Platelet Estimate Slight increase, Hypochromasia 1+ 01/28/20 16:05: Sodium 135 L, Potassium 5.4 H, Chloride 98, Carbon Dioxide 8 L*, Anion Gap 34.4 H, BUN 16, Creatinine 0.60, Estimated Creat Clear 185, Estimated GFR 119, Est GFR ( Amer) 144, Glucose 654 H*, Calcium 9.9, Total Bilirubin 0.4, AST 23, ALT 16, Alkaline Phosphatase 249 H, Total Protein 7.8, Albumin 4.5, Globulin 3.3 H, Albumin/Globulin Ratio 1.4, Acetone Level Large 01/28/20 16:05: Lactate 1.2 Result diagrams: 01/28/20 16:05 01/28/20 16:05 Orders (Tests/Meds): ED MEDICATIONS Generic Name Dose Route Start Last Admin Trade Name Freq PRN Reason Stop Dose Admin Sodium Chloride 1,000 mls @ 999 mls/hr 01/28/20 15:30 01/28/20 15:44 Sod Chlor 0.9% 1000ml Bag IV 01/28/20 16:30 999 mls/hr .Q1H1M DALIA Administration Sodium Chloride 1,000 mls @ 999 mls/hr 01/28/20 16:30 01/28/20 16:55 Sod Chlor 0.9% 1000ml Bag IV 01/28/20 17:30 999 mls/hr .Q1H1M DALIA Administration Insulin Human Regular 100 unit 101 mls @ 6.06 mls/hr 01/28/20 16:30 01/28/20 16:55 / Sodium Chloride IV 02/27/20 16:29 6.06 mls/hr .[id number] DALIA Administration Protocol 6 UNIT/HR Discontinued Medications Generic Name Dose Route Start Last Admin Trade Name Freq PRN Reason Stop Dose Admin Insulin Human Regular 10 unit 01/28/20 15:48 01/28/20 16:30 Humulin R Insulin 100 Units/Ml 10ml Vial IVP 01/28/20 15:49 10 unit ONCE ONE Administration Promethazine HCl 12.5 mg 01/28/20 15:30 01/28/20 15:44 Phenergan 25mg/Ml 1ml Vial IV 01/28/20 15:31 12.5 mg ONCE ONE Administration Sodium Chloride 25 ml 01/28/20 15:30 01/28/20 15:44 Sod Chlor 0.9% 25ml Bag IV 01/28/20 15:31 25 ml ONCE ONE Administration ORDERS Category Date Time Status Troponin I Q3H Lab 01/28/20 19:45 Ordered Troponin I Q3H Lab 01/28/20 22:45 Ordered Troponin I Stat Lab 01/28/20 16:05 Received Blood Culture Stat Micro 01/28/20 16:05 Received Arterial Blood Gas Stat RT 01/28/20 15:47 Results - ECG Data Tracing #1 Sinus tachycardia with a heart rate of 114 bpm, normal P waves, normal ME interv al, narrow QRS complex, nonspecific ST-T changes. - Physician Consults Physician Consulted: Dr. Ponce Time: 17:06 Reason -: Admission Comment/Response: Discussed with Dr. Ponce, regarding the patient and plan to get the patient admitted to the ICU. Nausea/Vomiting/Diarrhea HPI - General Chief complaint: Nausea/Vomiting/Diarrhea Stated complaint: hyperglycemia Time Seen by Provider: 01/28/20 15:34 Mode of Arrival: EMS Limitations: No Limitations Description of Symptoms (Recalled from ER Triage Doc. by RN): pt presents to ed with c/o hyperglycemia/nausea/vomiting. - History of Present Illness HPI Narrative: 29-year-old female presents with chief complaint of having nausea and vomiting since early this morning. She states she has not been feeling well since this morning. Her blood sugar was reading high at home. Has type 1 diabetes with complications secondary to it. She has had similar symptoms with DKA in the past. Denies having abdominal pain or discomfort. He has about 2-3 episodes of nausea and vomiting so far. Has blood sugar was high but she was able to bring it down up to the 190 yesterday evening. MD complaint: nausea, vomiting Onset (ago): day(s) (1) Associated Abdominal Pain: No - Related Data Home Medications Medication Instructions Recorded Confirmed Melatonin 10 mg PO HS 11/03/18 12/15/19 OXcarbazepine [Trileptal 300mg 1,200 mg PO BID 11/03/18 12/15/19 tablet] methocarbamoL [Methocarbamol 500mg 500 mg PO Q8HP PRN 11/09/18 12/15/19 Tablet] Sennosides/Docusate Sodium 2 each PO HSP PRN 06/11/19 12/15/19 [Docusate Sodium-Senna Tablet] Omeprazole 20 mg PO DAILY 06/12/19 12/15/19 Venlafaxine HCl [Effexor XR 75mg 75 mg PO DAILY 12/15/19 12/15/19 capsule] levETIRAcetam [Levetiracetam] 2,000 mg PO BID 12/15/19 12/15/19 Previous Rx's Medication Instructions Recorded Apixaban [Eliquis] 5 mg PO BID #60 tab 09/10/18 Insulin Glargine,Hum.rec.anlog 50 unit SQ HS #0 02/19/19 [Basaglar Kwikpen U-100] Insulin Lispro [Humalog Kwikpen 15 unit SUB-Q AC #1 12/16/19 U-100] Metformin HCl 500 mg PO DAILY #0 12/16/19 Allergies Allergy/AdvReac Type Severity Reaction Status Date / Time buspirone [BUSPIRONE] Allergy Severe Seizure Verified 12/15/19 05:31 nitrofurantoin Allergy Severe Seizure Verified 01/28/20 15:29 [NITROFURANTOIN] sulfamethoxazole Allergy Severe Seizure Verified 01/28/20 15:29 [From BACTRIM] trimethoprim [From BACTRIM] Allergy Severe Seizure Verified 01/28/20 15:29 topiramate [From TOPAMAX] Allergy Unknown Verified 01/28/20 15:29 adhesive tape AdvReac Intermediate SKIN Verified 01/28/20 15:29 [facility] History - Hepatitis A Screen Drug use history?: No High risk sexual behaviors?: No History of sexually transmitted infection?: No Currently employed?: No Childcare worker?: No Do you have indoor plumbing?: Yes Do you have electricity?: Yes Attestation statement:: This patient has been screened for Hepatitis A risk factors. I have reviewed the patient's past medical history: Yes Medical History: Reports:: Arrhythmia, Deep Vein Thrombosis, Depression, Diabetes Mellitus Type 1, MRSA, Palpitations, Pulmonary Embolism, Seizures Denies:: Cancer, Diabetes Mellitus Type 2, Internal Pacemaker Other Medical History: Reports: Anemia, Other. Denies: Blood Transfusion Reaction Laterality Cases: Bilateral: Other Other Surgeries: Yes: Appendectomy, Cholecystectomy, Dilation and Curettage, Hysterectomy-Partial ("everything but left ovary"), Tubal Ligation, Other (ablation). No: Pacemaker Amputation: No Fractures: No Comment: Ablation 10/30/2016 - Social History Smoking Status: Former smoker Tobacco Type: cigarettes # Packs/Day (cigarettes): 1 #Yrs smoked (if former smoker): 4 Alcohol Intake: current Alcohol Intake Frequency:: a few times a month Substance Use Type: former substance user Occupational Status: unemployed Housing: apartment Household Members: significant other Comment: Marked medical noncompliance - Psychiatric History Pschychiatric History:: Reports:: Depression Family Hx:: Anemia, Asthma, Cancer, Diabetes, Heart Attack, Hyperlipidemia, Hypertension, Kidney Disease, Stroke, Thyroid Disorder ROS Obtained: Yes All systems reviewed & no additional complaints Physical Exam - General General appearance: alert, in no apparent distress, lethargic - Head Head exam: atraumatic, normocephalic, normal inspection - Eye Eye exam: Present: normal appearance, PERRL, EOMI - ENT ENT exam: Present: normal exam, mucous membranes dry - Neck Neck exam: Present: normal inspection, full ROM, trachea midline - Chest Chest inspection: Present: normal inspection, symmetric chest wall rise. Absent: tenderness - Respiratory Respiratory exam: Present: normal lung sounds bilaterally. Absent: respiratory distress - Cardiovascular Cardiovascular exam: Present: regular rate, normal rhythm. Absent: JVD - Abdominal Exam Abdominal exam: Present: soft, normal bowel sounds. Absent: distention, tenderness, guarding - Extremities Exam Extremities exam: Present: normal inspection, full ROM, normal capillary refill. Absent: calf tenderness - Back Exam Back exam: Present: normal inspection. Absent: tenderness - Neurological Exam Neurological exam: Present: alert, oriented X3, CN II-XII intact - Psychiatric Psychiatric exam: Present: normal affect, normal mood - Skin Skin exam: Present: warm, dry, intact, normal color
[2020-01-28 15:35] LABS: Microscopic, Urine URINE MICROSCOPIC (MICROSCOPIC)
[2020-01-28 15:39] LABS: Appearance,Urine CLEAR (Clear); Bilirubin,Urine Negative (Negative); Blood, Urine Negative (Negative); Color,Urine YELLOW (Yellow); Glucose,Urine (UA) 3+ (Negative); Ketones,Urine 3+ (Negative); Leukocyte Esterase,Urine Negative (Negative); PH,Urine 5.5 (5.0-8.5); Protein,Urine Negative (Negative); Specific Gravity, Urine 1.025 (1.005-1.030); Urobilinogen,Urine 0.2 EU/dl (0.2)
[2020-01-28 15:55] LABS: Bacteria,Urine Trace /lpf; RBC,Urine Occasional #/hpf (0-3)
[2020-01-28 16:18] LABS: ABG Base Excess -19.6 mmol/L (-2.4-2.3); ABG HCO3 9.2 mmhg (22.0-26.0); ABG Oxygen Saturation 97 % (90-100); ABG PCO2 26.8 mmhg (35.0-45.0); ABG PO2 106.5 mmhg (80-100)
[2020-01-28 16:20] LABS: Allen's Test ACCEPTABLE; Oxygen 21 %
[2020-01-28 16:22] LABS: Basophils # 0.1 K/mm3 (0-0.2); Basophils % 0.4 % (0.1-2.0); Eosinophils % 0.2 % (0.1-12.0); Hematocrit 42.5 % (37.0-47.0); Hemoglobin 13.1 g/dL (12.2-16.2); Lymphocytes # 1.5 K/mm3 (0.7-4.5); Lymphocytes % 11.8 % (10-50); Mean Corpuscular HGB Conc 30.8 g/dL (31.8-35.4); Mean Corpuscular Volume 86.9 fl (81-99); Mean Platelet Volume 9.1 fl (7.4-10.4); Monocytes # 0.2 K/mm3 (0.1-1.0); Monocytes % 1.4 % (1.7-9.3); Neutrophils # 11.2 K/mm3 (1.8-7.8); Neutrophils % 86.1 % (37.0-80.0); Platelet Count 386 K/mm3 (142-424); Red Blood Count 4.89 M/mm3 (4.20-5.40); Red Cell Distribution Width 13.6 % (11.5-17.5)
[2020-01-28 16:23] LABS: ABG PH 7.15 mmol/L (7.35-7.45)
[2020-01-28 16:29] LABS: Amylase 74 U/L (30-110)
[2020-01-28 16:38] LABS: Acetone, Serum (Rapid) Large (None Detect)
[2020-01-28 16:41] LABS: Lymphocytes % 13 % (10-50); Monocytes % 2 % (2-9); Neutrophils % 85 % (42-76); Total Cells Counted 100
[2020-01-28 16:42] LABS: Alanine Aminotransferase 16 U/L (12-78); Albumin Level 4.5 g/dl (3.5-5.0); Albumin/Globulin Ratio 1.4 (1.1-1.8); Alkaline Phosphatase 249 U/L (38-126); Anion Gap 34.4 mEq/L (5-15); Aspartate Amino Transferase 23 U/L (14-36); Bilirubin,Total 0.4 mg/dl (0.2-1.3); Blood Urea Nitrogen 16 mg/dl (7-17); Calcium 9.9 mg/dl (8.4-10.2); Chloride 98 mmol/L (98-107); Globulin 3.3 g/dL (1.3-3.2); Hypochromasia 1+; Sodium 135 mmol/L (136-145); Total Protein,Serum 7.8 g/dl (6.3-8.2)
[2020-01-28 16:45] LABS: Carbon Dioxide 8 mmol/L (22.0-30.0)
[2020-01-28 16:52] LABS: Glucose 654 mg/dl (74-100)
[2020-01-28 20:03] LABS: Anion Gap 23.4 mEq/L (5-15)
--- NOTE | 2020-01-28 20:04 | History & Physical Report ---
*Admission Date: 01/28/20 *Chief complaint: malaise *History of present illness: this wf who has brittle iddm was doing ok had viral gi illness earlier in week and awoke this am with nausea and not feeling well and presented to [facility] ed - 29-year-old female presents with chief complaint of having nausea and vomiting since early this morning. She states she has not been feeling well since this morning. Her blood sugar was reading high at home. Has type 1 diabetes with complications secondary to it. She has had similar symptoms with DKA in the past. Denies having abdominal pain or discomfort. He has about 2-3 episodes of nausea and vomiting so far. Has blood sugar was high but she was able to bring it down up to the 190 yesterday evening. pt denied fever or prod cough - no rash and she reports compliant with meds - pt was found to have dka and was admitted for ivf and insulin - [facility] History I have reviewed the patient's past medical history: Yes Medical History: Reports:: Arrhythmia, Deep Vein Thrombosis, Depression, Diabetes Mellitus Type 1, MRSA, Palpitations, Pulmonary Embolism, Seizures Denies:: Cancer, Diabetes Mellitus Type 2, Internal Pacemaker *Have you ever received a pneumonia vaccine?: Yes *Have you received a flu vaccine this season?: Yes Other Medical History: Reports: Anemia, Other. Denies: Blood Transfusion Reaction Laterality Cases: Bilateral: Other Other Surgeries: Yes: Appendectomy, Cholecystectomy, Dilation and Curettage, Hysterectomy-Partial ("everything but left ovary"), Tubal Ligation, Other (ablation). No: Pacemaker Amputation: No Fractures: No - *Social History Educational Level: Completed High School Smoking Status: Former smoker Tobacco Type: cigarettes # Packs/Day (cigarettes): 1 #Yrs smoked (if former smoker): 4 Alcohol Intake: current Alcohol Intake Frequency:: holidays/special occasions only Substance Use Type: former substance user *Occupational Status:: unemployed Housing: apartment Household Members: significant other *Travel in the last 8 weeks: None - Psychiatric History Pschychiatric History:: Reports:: Depression Family Hx:: Anemia, Asthma, Cancer, Diabetes, Heart Attack, Hyperlipidemia, Hypertension, Kidney Disease, Stroke, Thyroid Disorder Review of Systems - Review of Systems Review of systems:: pertinent systems reviewed and negative unless documented below - Constitutional Reports malaise, Denies fever(s) - Eyes Denies change in vision - ENT Denies sore throat - *Cardiovascular Denies chest pain at rest - *Respiratory Denies cough - *Gastrointestinal Reports nausea, Reports vomiting, Denies abdominal pain, Denies loose stools - *Genitourinary Denies blood in urine - *Musculoskeletal Denies joint pain, Denies neck pain - Integumentary/Breasts Denies rash - *Neurologic Denies confusion, Denies frequent falls, Denies headache(s), Denies seizure-like activity - Psychiatric Denies confusion, Denies thoughts of hurting/killing others Meds Home Medications Medication Instructions Recorded Confirmed Type OXcarbazepine [Trileptal 300mg 1,200 mg PO BID 11/03/18 01/28/20 History tablet] methocarbamoL [Methocarbamol 500mg 500 - 1,000 mg PO Q8HP PRN 11/09/18 01/28/20 History Tablet] Insulin Glargine,Hum.rec.anlog 50 unit SQ HS #0 02/19/19 01/28/20 Rx [Basaglar Kwikpen U-100] Sennosides/Docusate Sodium 2 each PO HSP PRN 06/11/19 01/28/20 History [Docusate Sodium-Senna Tablet] Venlafaxine HCl [Effexor XR 75mg 75 mg PO DAILY 12/15/19 01/28/20 History capsule] Gabapentin [Gabapentin 300mg Cap] 300 mg PO TID 01/28/20 01/28/20 History Insulin Lispro [Humalog Kwikpen 20 unit SUB-Q ACHS 01/28/20 01/28/20 History U-100] Levothyroxine Sodium 75 mcg PO DAILY 01/28/20 01/28/20 History [Levothyroxine 75mcg (0.075mg) Tab] Metformin HCl 500 mg PO BID 01/28/20 01/28/20 History raNITIdine HCl [Acid 3Rd Pressman] 150 mg PO BID 01/28/20 01/28/20 History Allergies Allergy/AdvReac Type Severity Reaction Status Date / Time buspirone [BUSPIRONE] Allergy Severe Seizure Verified 12/15/19 05:31 nitrofurantoin Allergy Severe Seizure Verified 01/28/20 15:29 [NITROFURANTOIN] sulfamethoxazole Allergy Severe Seizure Verified 01/28/20 15:29 [From BACTRIM] trimethoprim [From BACTRIM] Allergy Severe Seizure Verified 01/28/20 15:29 topiramate [From TOPAMAX] Allergy Unknown Verified 01/28/20 15:29 adhesive tape AdvReac Intermediate SKIN Verified 01/28/20 15:29 IRRITATION Exam Vital signs and Labs for Last 24 Hours: Temp Pulse Resp BP Pulse Ox 97.7 F 110 H 20 127/80 100 01/28/20 18:01 01/28/20 18:32 01/28/20 18:01 01/28/20 18:01 01/28/20 18:01 Laboratory Results - last 24 hr 01/28/20 13:41: Influenza Type A Ag Negative, Influenza Type B Ag Negative 01/28/20 15:29: Urine Color Yellow, Urine Appearance Clear, Urine pH 5.5, Ur Specific [place] 1.025, Urine Protein Negative, Urine Glucose (UA) 3+, Urine Ketones 3+, Urine Blood Negative, Urine Nitrate Negative, Urine Bilirubin Negative, Urine Urobilinogen 0.2, Ur Leukocyte Esterase Negative, Urine RBC Occasional, Urine WBC 5-10, Ur Squamous Epith Cells 5-10, Urine Bacteria Trace 01/28/20 15:47: ABG pH 7.15 L*, ABG pCO2 26.8 L, ABG pO2 106.5 H, ABG HCO3 9.2 L , ABG Total CO2 10.0 L, ABG O2 Saturation 97, ABG Base Excess -19.6 L 01/28/20 16:05: Amylase 74, Lipase 114 01/28/20 16:05: WBC 13.0 H, RBC 4.89, Hgb 13.1, Hct 42.5, MCV 86.9, MCH 26.8 L, MCHC 30.8 L, RDW 13.6, Plt Count 386, MPV 9.1, Neut % (Auto) 86.1 H, Lymph % (Auto) 11.8, [place] % (Auto) 1.4 L, Eos % (Auto) 0.2, Baso % (Auto) 0.4, Neut # (Auto) 11.2 H, Lymph # (Auto) 1.5, [place] # (Auto) 0.2, Eos # (Auto) 0.0, Baso # (Auto) 0.1, Total Counted 100, Neutrophils % (Manual) 85 H, Lymphocytes % (Manual) 13, Monocytes % (Manual) 2, Platelet Estimate Slight increase, Hypochromasia 1+ 01/28/20 16:05: Sodium 135 L, Potassium 5.4 H, Chloride 98, Carbon Dioxide 8 L*, Anion Gap 34.4 H, BUN 16, Creatinine 0.60, Estimated Creat Clear 185, Estimated GFR 119, Est GFR ( Amer) 144, Glucose 654 H*, Calcium 9.9, Total Bilirubin 0.4, AST 23, ALT 16, Alkaline Phosphatase 249 H, Total Protein 7.8, Albumin 4.5, Globulin 3.3 H, Albumin/Globulin Ratio 1.4, Acetone Level Large 01/28/20 16:05: Lactate 1.2 01/28/20 16:05: Troponin I < 0.01 01/28/20 17:03: POC Glucose 572 H* 01/28/20 18:10: POC Glucose 347 H* I & O for Last 24 hours: Intake & Output 01/26/20 01/27/20 01/28/20 01/29/20 11:59 11:59 11:59 11:59 Weight 179 lb - Constitutional no acute distress, obese - *Routine HEENT Exam Head: Present: normocephalic Eye: Present: EOMI, PERRL. Absent: conjunctival icterus ENT: Present: mucous membranes dry - *Routine Neck Exam Present: supple. Absent: JVD - *Routine Respiratory Exam Present: CTA bilaterally - *Routine Cardiovascular Exam Present: RRR, murmur. Absent: rubs - *Routine Abdominal Exam Present: soft - *Routine Extremities Exam Absent: calf tenderness - *Routine Skin Exam Present: intact - *Routine Neurological Exam Present: alert, oriented X3, CN II-XII intact. Absent: sensory deficit, motor deficit, altered mental status - Routine Psychiatric Exam Present: normal affect Assessment and Plan (1) DKA (diabetic ketoacidoses) Current visit: Yes Status: Acute Qualifiers: Diabetes mellitus type: type 1 Diabetes mellitus complication detail: without coma Qualified Code(s): E10.10 - Type 1 diabetes mellitus with ketoacidosis without coma Category: Medical Code(s): E11.10 - Type 2 diabetes mellitus with ketoacidosis without coma (2) Type 1 diabetes mellitus with hyperglycemia Current visit: Yes Status: Chronic Category: Medical Code(s): E10.65 - Type 1 diabetes mellitus with hyperglycemia (3) Hx of absence seizures Current visit: No Status: Chronic Category: Medical Code(s): Z86.69 - Personal history of other diseases of the nervous system and sense organs (4) Obesity (BMI 30.0-34.9) Problem details: complicates all aspects of her care. Current visit: No Status: Chronic Category: Medical Code(s): E66.9 - Obesity, unspecified (5) SIRS (systemic inflammatory response syndrome) Current visit: Yes Status: Acute Category: Medical Code(s): R65.10 - Syst emic inflammatory response syndrome (SIRS) of non-infectious origin without acute organ dysfunction
[2020-01-28 20:09] LABS: Calcium 8.9 mg/dl (8.4-10.2)
[2020-01-29 00:19] LABS: Anion Gap 17.3 mEq/L (5-15); Calcium 8.4 mg/dl (8.4-10.2)
[2020-01-29 04:27] LABS: Basophils % 0.4 % (0.1-2.0); Eosinophils # 0.1 K/mm3 (0.0-0.4); Eosinophils % 1.4 % (0.1-12.0); Hematocrit 33.5 % (37.0-47.0); Lymphocytes % 29.1 % (10-50); Mean Corpuscular HGB Conc 31.6 g/dL (31.8-35.4); Mean Platelet Volume 8.3 fl (7.4-10.4); Monocytes # 0.3 K/mm3 (0.1-1.0); Neutrophils # 4.3 K/mm3 (1.8-7.8); Platelet Count 240 K/mm3 (142-424); Red Blood Count 3.99 M/mm3 (4.20-5.40); Red Cell Distribution Width 13.8 % (11.5-17.5); White Blood Count 6.7 K/mm3 (4.8-10.8)
[2020-01-29 04:34] LABS: Hemoglobin 10.6 g/dL (12.2-16.2)
[2020-01-29 04:40] LABS: Anion Gap 13.9 mEq/L (5-15)
--- NOTE | 2020-01-29 07:27 | Progress Note ---
Internal Medicine - PN: Subj *Date: 01/29/20 *Time: 07:26 Interval history: Patient feels a little better this morning. Reports that she has some mild cramping abdominal pain but has had no vomiting since admission. Does report that her legs feel a bit cramping. Exam Vital signs and Labs for Last 24 Hours: Temp Pulse Resp BP Pulse Ox 98.1 F 88 18 101/65 L 95 01/29/20 04:00 01/29/20 06:22 01/29/20 05:00 01/29/20 06:22 01/29/20 06:22 Laboratory Results - last 24 hr 01/28/20 13:41: Influenza Type A Ag Negative, Influenza Type B Ag Negative 01/28/20 15:29: Urine Color Yellow, Urine Appearance Clear, Urine pH 5.5, Ur Specific [place] 1.025, Urine Protein Negative, Urine Glucose (UA) 3+, Urine Ketones 3+, Urine Blood Negative, Urine Nitrate Negative, Urine Bilirubin N egative, Urine Urobilinogen 0.2, Ur Leukocyte Esterase Negative, Urine RBC Occasional, Urine WBC 5-10, Ur Squamous Epith Cells 5-10, Urine Bacteria Trace 01/28/20 15:33: POC Glucose 562 H* 01/28/20 15:47: ABG pH 7.15 L*, ABG pCO2 26.8 L, ABG pO2 106.5 H, ABG HCO3 9.2 L , ABG Total CO2 10.0 L, ABG O2 Saturation 97, ABG Base Excess -19.6 L 01/28/20 16:05: Amylase 74, Lipase 114 01/28/20 16:05: WBC 13.0 H, RBC 4.89, Hgb 13.1, Hct 42.5, MCV 86.9, MCH 26.8 L, MCHC 30.8 L, RDW 13.6, Plt Count 386, MPV 9.1, Neut % (Auto) 86.1 H, Lymph % (Auto) 11.8, [place] % (Auto) 1.4 L, Eos % (Auto) 0.2, Baso % (Auto) 0.4, Neut # (Auto) 11.2 H, Lymph # (Auto) 1.5, [place] # (Auto) 0.2, Eos # (Auto) 0.0, Baso # (Auto) 0.1, Total Counted 100, Neutrophils % (Manual) 85 H, Lymphocytes % (Manual) 13, Monocytes % (Manual) 2, Platelet Estimate Slight increase, Hypochromasia 1+ 01/28/20 16:05: Sodium 135 L, Potassium 5.4 H, Chloride 98, Carbon Dioxide 8 L*, Anion Gap 34.4 H, BUN 16, Creatinine 0.60, Estimated Creat Clear 185, Estimated GFR 119, Est GFR ( Amer) 144, Glucose 654 H*, Calcium 9.9, Total Bilirubin 0.4, AST 23, ALT 16, Alkaline Phosphatase 249 H, Total Protein 7.8, Albumin 4.5, Globulin 3.3 H, Albumin/Globulin Ratio 1.4, Acetone Level Large 01/28/20 16:05: Lactate 1.2 01/28/20 16:05: Troponin I < 0.01 01/28/20 17:03: POC Glucose 572 H* 01/28/20 18:10: POC Glucose 347 H* 01/28/20 19:50: Sodium 142, Potassium 4.4, Chloride 108 H, Carbon Dioxide 15 L D , Anion Gap 23.4 H, BUN 14, Creatinine 0.60, Estimated Creat Clear 179, Estimated GFR 119, Est GFR ( Amer) 144, Glucose 235 H D, Calcium 8.9 D 01/28/20 19:51: POC Glucose 273 H 01/28/20 20:58: POC Glucose 177 H 01/28/20 23:00: POC Glucose 114 H 01/28/20 23:53: POC Glucose 107 01/28/20 23:55: Sodium 140, Potassium 4.3, Chloride 109 H, Carbon Dioxide 18 L, Anion Gap 17.3 H, BUN 12, Creatinine 0.40 L D, Estimated Creat Clear 268, Estimated GFR 190, Est GFR ( Amer) 230 D, Glucose 108 H D, Calcium 8.4 01/29/20 00:54: POC Glucose 93 01/29/20 01:55: POC Glucose 101 01/29/20 03:02: POC Glucose 108 01/29/20 04:15: Sodium 138, Potassium 3.9, Chloride 109 H, Carbon Dioxide 19 L, Anion Gap 13.9, BUN 11, Creatinine 0.40 L, Estimated Creat Clear 268, Estimated GFR 190, Est GFR ( Amer) 230, Glucose 122 H, Calcium 8.0 L 01/29/20 04:15: Acetone Level None detected 01/29/20 04:15: WBC 6.7 D, RBC 3.99 L, Hgb 10.6 L D, Hct 33.5 L, MCV 84.0, MCH 26.5 L, MCHC 31.6 L, RDW 13.8, Plt Count 240 D, MPV 8.3, Neut % (Auto) 64.0, Lymph % (Auto) 29.1, [place] % (Auto) 5.0, Eos % (Auto) 1.4, Baso % (Auto) 0.4, Neut # (Auto) 4.3, Lymph # (Auto) 2.0, [place] # (Auto) 0.3, Eos # (Auto) 0.1, Baso # (Auto) 0.0 01/29/20 04:15: POC Glucose 132 H 01/29/20 05:03: POC Glucose 115 H 01/29/20 06:02: POC Glucose 134 H 01/29/20 07:10: POC Glucose 165 H I & O for Last 24 hours: Intake & Output 01/26/20 01/27/20 01/28/20 01/29/20 11:59 11:59 11:59 11:59 Intake Total 2182 / 2182 Output Total 700 / 700 Balance 1482 / 1482 Weight 182 lb 5 oz Narrative: Patient sleeping. When awakened she is alert and oriented. Oropharynx is dry but clear, no JVD. Neurologically intact, moves all extremities. Lungs are clear in the anterior and posterior [place]. Heart rate regular. Abdomen soft, minimal superficial tenderness but no deep tenderness or masses. No extremity perfusion or clubbing or edema. Assessment and Plan (1) DKA (diabetic ketoacidoses) Current visit: Yes Status: Acute Qualifiers: Diabetes mellitus type: type 1 Diabetes mellitus complication detail: without coma Qualified Code(s): E10.10 - Type 1 diabetes mellitus with ketoacidosis without coma Category: Medical Code(s): E11.10 - Type 2 diabetes mellitus with ketoacidosis without coma (2) Type 1 diabetes mellitus with hyperglycemia Current visit: Yes Status: Chronic Category: Medical Code(s): E10.65 - Type 1 diabetes mellitus with hyperglycemia (3) Hx of absence seizures Current visit: No Status: Chronic Category: Medical Code(s): Z86.69 - Personal history of other diseases of the nervous system and sense organs (4) Obesity (BMI 30.0-34.9) Problem details: complicates all aspects of her care. Current visit: No Status: Chronic Category: Medical Code(s): E66.9 - Obesity, unspecified (5) SIRS (systemic inflammatory response syndrome) Current visit: Yes Status: Acute Category: Medical Code(s): R65.10 - Systemic inflammatory response syndrome (SIRS) of non-infectious origin without acute organ dysfunction - Assessment and plan all Dx Assessment and Plan for all problems:: Overall doing very nicely. Acetones have cleared in her system well. She is now on high intensity sliding scale insulin. She reports a fairly reasonable sick day management in the face of her gastroenteritis which is encouraging. Await culture reports to make sure she does not have a UTI versus bloodstream infections and we will continue levofloxacin. Transition off D5NS to plain NS for fluid support. Transfer out of stepdown unit. Clear liquid diet, to advance as tolerated.
--- NOTE | 2020-01-29 07:38 | Pharmacy Consult Notes ---
[facility] Pharmacy VTE Monitoring - Patient Demographics Admission date: 01/28/20 Report Date: 01/29/20 Time: 07:38 Allergies/Adverse Reactions: Patient Allergies buspirone [BUSPIRONE] Allergy (Severe, Verified 12/15/19 05:31) Seizure nitrofurantoin [NITROFURANTOIN] Allergy (Severe, Verified 01/28/20 15:29) Seizure sulfamethoxazole [From BACTRIM] Allergy (Severe, Verified 01/28/20 15:29) Seizure trimethoprim [From BACTRIM] Allergy (Severe, Verified 01/28/20 15:29) Seizure topiramate [From TOPAMAX] Allergy (Unknown, Verified 01/28/20 15:29) adhesive tape Adverse Reaction (Intermediate, Verified 01/28/20 15:29) SKIN IRRITATION Height: 1.6 m Weight: 82.696 kg Patient Problems: Current Active Problems Type 1 diabetes mellitus with hyperglycemia (Chronic) DKA (diabetic ketoacidoses) (Acute) Sepsis (Acute) Metabolic acidosis (Acute) Generalized weakness (Acute) Intractable nausea and vomiting (Acute) Medical non-compliance (Acute) SIRS (systemic inflammatory response syndrome) (Acute) - VTE Risk Labs: VTE Related Lab Results Hgb 10.6 g/dL (12.2-16.2) L D 01/29/20 04:15 Hct 33.5 % (37.0-47.0) L 01/29/20 04:15 Plt Count 240 K/mm3 (142-424) D 01/29/20 04:15 BUN 11 mg/dl (7-17) 01/29/20 04:15 Creatinine 0.40 mg/dl (0.52-1.04) L 01/29/20 04:15 Estimated Creat Clear 268 mL/min (50-200) 01/29/20 04:15 VTE Score: 1 VTE Risk Level: Low Risk - Prophylaxis VTE Prophylaxis Ordered?: Yes Types of VTE Prophylaxis: TEDS Knee High Location of Applied Device: Bilateral Lower Extremeties
[2020-01-29 09:18] LABS: Anion Gap 16.8 mEq/L (5-15); Calcium 8.4 mg/dl (8.4-10.2)
--- NOTE | 2020-01-29 11:51 | Electrocardiograph Report ---
APPROVED REPORT Exam: Resting ECG HR:114 bpm ECG Measurements Heart Rate 114 AXES AL 172 P 56 QRSd 90 QRS 32 QT 338 T39 QTc 465 <Conclusion> Sinus tachycardia Otherwise normal ECG Electronically signed by : Chauncey Lorenzo, 01/29/2020 11:51:17
[2020-01-29 18:56] LABS: Anion Gap 14.9 mEq/L (5-15); Calcium 8.2 mg/dl (8.4-10.2)
[2020-01-30 06:56] LABS: Basophils % 0.3 % (0.1-2.0); Eosinophils # 0.1 K/mm3 (0.0-0.4); Eosinophils % 2.1 % (0.1-12.0); Hematocrit 30.2 % (37.0-47.0); Hemoglobin 9.7 g/dL (12.2-16.2); Lymphocytes # 1.5 K/mm3 (0.7-4.5); Lymphocytes % 28.2 % (10-50); Mean Corpuscular HGB Conc 32.1 g/dL (31.8-35.4); Mean Corpuscular Volume 82.5 fl (81-99); Mean Platelet Volume 8.5 fl (7.4-10.4); Monocytes # 0.2 K/mm3 (0.1-1.0); Neutrophils # 3.6 K/mm3 (1.8-7.8); Neutrophils % 65.4 % (37.0-80.0); Platelet Count 215 K/mm3 (142-424); Red Blood Count 3.66 M/mm3 (4.20-5.40); White Blood Count 5.4 K/mm3 (4.8-10.8)
[2020-01-30 06:59] LABS: Anion Gap 8.5 mEq/L (5-15)
[2020-01-30 07:00] LABS: Calcium 8.3 mg/dl (8.4-10.2)
--- NOTE | 2020-01-30 13:33 | Progress Note ---
Internal Medicine - PN: Subj *Date: 01/30/20 *Time: 08:20 Interval history: Patient showed improvement overnight. Tolerating basal insulin at reduced dose. Blood sugar this morning within range of 100-150. Patient states feeling better though continues to have significant loose stools and nausea after eating. Only ate 50% of her breakfast and reports nausea on exam this morning. Normotensive, afebrile. Stool sample obtained, negative for infectious etiologies. Denies SOA, CP, seizures, BLACKMAN, emesis. Exam Vital signs and Labs for Last 24 Hours: Temp Pulse Resp BP Pulse Ox 98.7 F 68 17 145/85 H 96 01/30/20 08:00 01/30/20 08:00 01/30/20 08:00 01/30/20 08:00 01/30/20 08:00 Laboratory Results - last 24 hr 01/28/20 15:47: Specimen Source Right radial, O2 % 21, Agustin Test Acceptable 01/29/20 16:50: POC Glucose 125 H 01/29/20 18:01: Sodium 136, Potassium 3.9, Chloride 107, Carbon Dioxide 18 L, Anion Gap 14.9, BUN 5 L D, Creatinine 0.40 L, Estimated Creat Clear 274, Estimated GFR 190, Est GFR ( Amer) 230 D, Glucose 206 H, Calcium 8.2 L 01/29/20 20:43: POC Glucose 435 H* 01/29/20 22:52: POC Glucose 351 H* 01/30/20 00:12: Stl Aeromonas (PCR) Not detected, Stl C. cayetanensis PCR Not detected, Stool Rotavirus (PCR) Not detected, Stl Adenov F 40/41 PCR Not detected, Stool Astrovirus (PCR) Not detected, Stool Campylobacter PCR Not detected, Stl C.difficile Tox PCR Not detected, Stool Cryptosporidium PCR Not detected, Stl E.coli Shiga Tox PCR Not detected, Stool E coli O157 PCR Not detected, Stl Enterotoxigenic E PCR Not detected, Stool EPEC (PCR) Not detected, Stool EAEC (PCR) Not detected, Stl E. histolytica PCR Not detected, Stool Giardia Lamblia PCR Not detected, Stool Salmonella PCR Not detected, Stool Sapovirus (PCR) Not detected, Stl P. shigelloides PCR Not detected, Stl Shigella/EIEC PCR Not detected, St Y.enterocolitica PCR Not detected, Stool Vibrio (PCR) Not detected, Stl Vibrio cholerae PCR Not detected, Stl Norovirus GI/GII PCR Not detected 01/30/20 02:00: POC Glucose 211 H 01/30/20 05:45: POC Glucose 131 H 01/30/20 06:22: WBC 5.4, RBC 3.66 L, Hgb 9.7 L, Hct 30.2 L, MCV 82.5, MCH 26.5 L , MCHC 32.1, RDW 14.0, Plt Count 215, MPV 8.5, Neut % (Auto) 65.4, Lymph % (Auto) 28.2, [place] % (Auto) 4.0, Eos % (Auto) 2.1, Baso % (Auto) 0.3, Neut # (Auto) 3.6, Lymph # (Auto) 1.5, [place] # (Auto) 0.2, Eos # (Auto) 0.1, Baso # (Auto) 0.0 01/30/20 06:22: Sodium 135 L, Potassium 3.5, Chloride 105, Carbon Dioxide 25 D, Anion Gap 8.5, BUN 4 L, Creatinine 0.40 L, Estimated Creat Clear 274, Estimated GFR 190, Est GFR ( Amer) 230, Glucose 129 H D, Calcium 8.3 L 01/30/20 11:36: POC Glucose 347 H* I & O for Last 24 hours: Intake & Output 01/27/20 01/28/20 01/29/20 01/30/20 23:59 23:59 23:59 23:59 Intake Total 5186 / 5426 2297 / 2297 Output Total 700 / 700 Balance -700 / -700 5186 / 5426 2297 / 2297 Weight 81.193 kg 83 kg Microbiology Reports for the Last 24 Hours: Microbiology 01/28/20 20:40 Urine,Clean Catch Urine Culture - Preliminary NO GROWTH AFTER 24 HOURS - Constitutional no acute distress, obese - *Routine HEENT Exam Head: Present: normocephalic Eye: Present: EOMI (And left eye, right eye blind (POA)), PERRL ENT: Present: mucous membranes moist - *Routine Neck Exam Present: supple. Absent: lymphadenopathy - *Routine Respiratory Exam Present: CTA bilaterally - *Routine Cardiovascular Exam Present: RRR - *Routine Abdominal Exam Present: soft, tenderness Comments: Hyperactive abdominal sounds with diffuse nonfocal tenderness - *Routine Extremities Exam Absent: cyanosis, clubbing, edema - *Routine Skin Exam Present: warm. Absent: rash Comments: Numerous tattoos extremities and trunk - *Routine Neurological Exam Present: alert, oriented X3 Assessment and Plan (1) DKA (diabetic ketoacidoses) Current visit: Yes Status: Acute Qualifiers: Diabetes mellitus type: type 1 Diabetes mellitus complication detail: without coma Qualified Code(s): E10.10 - Type 1 diabetes mellitus with ketoacidosis without coma Category: Medical Code(s): E11.10 - Type 2 diabetes mellitus with ketoacidosis without coma (2) Type 1 diabetes mellitus with hyperglycemia Current visit: Yes Status: Chronic Category: Medical Code(s): E10.65 - Type 1 diabetes mellitus with hyperglycemia (3) Hx of absence seizures Current visit: No Status: Chronic Category: Medical Code(s): Z86.69 - Personal history of other diseases of the nervous system and sense organs (4) Obesity (BMI 30.0-34.9) Problem details: complicates all aspects of her care. Current visit: No Status: Chronic Category: Medical Code(s): E66.9 - Obesity, unspecified (5) SIRS (systemic inflammatory response syndrome) Current visit: Yes Status: Acute Category: Medical Code(s): R65.10 - Systemic inflammatory response syndrome (SIRS) of non-infectious origin without acute organ dysfunction - Assessment and plan all Dx Assessment and Plan for all problems:: Gap closed yesterday, advancing basal bolus regimen. Still having nausea and vomiting. Patient not stable enough from a p.o. tolerance of medication and nutrition standpoint to discharge home. We will continue to monitor for 24 hours. Plan for discharge in the morning. Advance basal insulin tonight. Initiate Phenergan for nausea. Stop IV fluids, push p.o. fluids and monitor ins and outs.
[2020-01-31 06:05] LABS: Basophils % 0.5 % (0.1-2.0); Eosinophils # 0.1 K/mm3 (0.0-0.4); Eosinophils % 2.4 % (0.1-12.0); Hematocrit 31.5 % (37.0-47.0); Hemoglobin 10.4 g/dL (12.2-16.2); Lymphocytes # 1.6 K/mm3 (0.7-4.5); Lymphocytes % 33.2 % (10-50); Mean Corpuscular HGB Conc 32.8 g/dL (31.8-35.4); Mean Corpuscular Volume 81.2 fl (81-99); Mean Platelet Volume 9.5 fl (7.4-10.4); Monocytes # 0.2 K/mm3 (0.1-1.0); Neutrophils # 2.8 K/mm3 (1.8-7.8); Neutrophils % 58.8 % (37.0-80.0); Platelet Count 219 K/mm3 (142-424); Red Blood Count 3.88 M/mm3 (4.20-5.40); White Blood Count 4.8 K/mm3 (4.8-10.8)
[2020-01-31 06:15] LABS: Anion Gap 8.6 mEq/L (5-15); Calcium 8.5 mg/dl (8.4-10.2)
--- NOTE | 2020-01-31 07:14 | Discharge Summary ---
General - General Admission date:: 01/28/20 Discharge date: 01/31/20 HPI HPI: this wf who has brittle iddm was doing ok had viral gi illness earlier in week and awoke this am with nausea and not feeling well and presented to [facility] - 29-year-old female presents with chief complaint of having nausea and vomiting since early this morning. She states she has not been feeling well since this morning. Her blood sugar was reading high at home. Has type 1 diabetes with complications secondary to it. She has had similar symptoms with DKA in the past. Denies having abdominal pain or discomfort. He has about 2-3 episodes of nausea and vomiting so far. Has blood sugar was high but she was able to bring it down up to the 190 yesterday evening. pt denied fever or prod cough - no rash and she reports compliant with meds - pt was found to have dka and was admitted for ivf and insulin - Hospital Course Hospital Course: Patient was admitted to the hospital, diagnosed with DKA and placed on insulin drip overnight. She quickly cleared her ketones, and was transitioned back to a basal bolus regimen. Apparent source of DKA was a stomach virus type picture with vomiting which cleared in the hospital with IV fluids and appropriate electrolyte replacement. Cultures of blood and urine were negative. Patient transition back to a diet over the next couple of days. This morning she is eating well. Glucose levels are in the 200s. No acidosis noted. She is alert, pleasant, oriented. She reports that she has plenty of insulin at home. We will discharge home with current regimen and she will have close follow-up in our office on Wednesday. She was once again counseled on sick day management as her previous regimens. Objective Vital signs: Temp Pulse Resp BP Pulse Ox 98.7 F 74 18 134/89 96 01/30/20 20:00 01/30/20 16:00 01/30/20 20:00 01/30/20 20:00 01/30/20 20:00 no acute distress - *Routine HEENT Exam Head: Present: normocephalic ENT: Present: mucous membranes moist Comments: Previously noted visual disturbances - *Routine Neck Exam Present: supple - *Routine Respiratory Exam Present: CTA bilaterally - *Routine Cardiovascular Exam Present: RRR - *Routine Abdominal Exam Present: soft, normoactive bowel sounds. Absent: tenderness - *Routine Extremities Exam Absent: cyanosis, clubbing, edema - *Routine Skin Exam Present: warm. Absent: rash - Detailed Eye Exam Eyelids: Bilateral normal inspection Results Labs on day of discharge: Labs from last 24 hours 01/31/20 01/31/20 01/31/20 05:56 05:56 05:27 WBC 4.8 RBC 3.88 L Hgb 10.4 L Hct 31.5 L MCV 81.2 MCH 26.7 L MCHC 32.8 RDW 14.0 Plt Count 219 MPV 9.5 Neut % (Auto) 58.8 Lymph % (Auto) 33.2 [place] % (Auto) 5.0 Eos % (Auto) 2.4 Baso % (Auto) 0.5 Neut # (Auto) 2.8 Lymph # (Auto) 1.6 [place] # (Auto) 0.2 Eos # (Auto) 0.1 Baso # (Auto) 0.0 Sodium 135 L Potassium 3.6 Chloride 102 Carbon Dioxide 28 Anion Gap 8.6 BUN 13 D Creatinine 0.40 L Estimated Creat Clear 282 Estimated GFR 190 Est GFR ( Amer) 230 Glucose 210 H D POC Glucose 213 H Calcium 8.5 01/30/20 01/30/20 01/30/20 20:11 16:52 11:36 WBC RBC Hgb Hct MCV MCH MCHC RDW Plt Count MPV Neut % (Auto) Lymph % (Auto) [place] % (Auto) Eos % (Auto) Baso % (Auto) Neut # (Auto) Lymph # (Auto) [place] # (Auto) Eos # (Auto) Baso # (Auto) Sodium Potassium Chloride Carbon Dioxide Anion Gap BUN Creatinine Estimated Creat Clear Estimated GFR Est GFR ( Amer) Glucose POC Glucose 340 H* 358 H* 347 H* Calcium Preliminary micro results at discharge 01/28/20 16:05 Blood Culture - Preliminary Blood NO GROWTH AFTER 48 HOURS 01/28/20 16:05 Blood Culture - Preliminary Blood NO GROWTH AFTER 48 HOURS DS: Diagnosis - Discharge Diagnosis (1) DKA (diabetic ketoacidoses) Status: Resolved (2) Type 1 diabetes mellitus with hyperglycemia Status: Chronic (3) Hx of absence seizures Status: Chronic (4) Obesity (BMI 30.0-34.9) Status: Chronic Problem details: complicates all aspects of her care. (5) SIRS (systemic inflammatory response syndrome) Status: Acute Discharge Plan - Patient Discharge Instructions ACTIVITY: Continue current activity DIET: continue same diet Patient Instructions: Type 1 Diabetes, DI for Diabetic Ketoacidosis - Follow up Plan Follow up with: Sirni Ayala MD [Primary Care Provider] - 02/05/20 Disposition: Home, Self-Snf Medications: Home Medications Medication Instructions Recorded Confirmed Type OXcarbazepine [Trileptal 300mg 1,200 mg PO BID 11/03/18 01/29/20 History tablet] methocarbamoL [Methocarbamol 500mg 500 - 1,000 mg PO Q8HP PRN 11/09/18 01/29/20 History Tablet] Insulin Glargine,Hum.rec.anlog 50 unit SQ HS #0 02/19/19 01/29/20 Rx [Basaglar Kwikpen U-100] Sennosides/Docusate Sodium 2 each PO HSP PRN 06/11/19 01/29/20 History [Docusate Sodium-Senna Tablet] Venlafaxine HCl [Effexor XR 75mg 75 mg PO DAILY 12/15/19 01/29/20 History capsule] Gabapentin [Gabapentin 300mg Cap] 300 mg PO TID 01/28/20 01/29/20 History Insulin Lispro [Humalog Kwikpen 15 unit SUB-Q AC 01/28/20 01/29/20 History U-100] Metformin HCl 250 mg PO HS 01/28/20 01/29/20 History raNITIdine HCl [Acid High Pressure Kettle Operator] 150 mg PO BID 01/28/20 01/29/20 History Levothyroxine Sodium 25 mcg PO DAILY 01/29/20 01/29/20 History [Levothyroxine 25mcg (0.025mg) Tab] levETIRAcetam [Levetiracetam] 2,000 mg PO BID 01/29/20 01/29/20 History Prescriptions/Medication Reconciliation: Continued OXcarbazepine [Trileptal 300mg tablet] 1,200 mg PO BID methocarbamoL [Methocarbamol 500mg Tablet] 500 - 1,000 mg PO Q8HP PRN PRN Reason: MUSCLE SPASMS Venlafaxine HCl [Effexor XR 75mg capsule] 75 mg PO DAILY raNITIdine HCl [Acid High Pressure Kettle Operator] 150 mg PO BID Gabapentin [Gabapentin 300mg Cap] 300 mg PO TID Levothyroxine Sodium [Levothyroxine 25mcg (0.025mg) Tab] 25 mcg PO DAILY Insulin Glargine,Hum.rec.anlog [Basaglar Kwikpen U-100] 50 unit SQ HS #0 Sennosides/Docusate Sodium [Docusate Sodium-Senna Tablet] 2 each PO HSP PRN PRN Reason: Constipation Metformin HCl 250 mg PO HS Insulin Lispro [Humalog Kwikpen U-100] 15 unit SUB-Q AC levETIRAcetam [Levetiracetam] 2,000 mg PO BID - Problem Reconciliation Problems Reviewed?: Yes
[2020-01-31 08:54] VITALS: BP 117/74
== END 2020-01-31 09:00 | disposition home or self-care (01) | DRG 638 ==
LOC: ER 15:26 → 2ND 15:26 → OBSVTOIN 18:09 → 2ND 18:09
PROVIDERS: ADMIT Emergency Medicine; ATTEND Internal Medicine Adolescent Medicine
CPT/HCPCS: 36415; 71010; 71045; 80048; 80053; 80177; 81001; 82009; 82150; 82803; 82962; 83605; 83690; 83735; 84484; 85007; 85025; 87040; 87086; 87275; 87276; 87506; 93005; 96365; 96366; 96367; 96375; 99285; J1642; J1956; J2405

== ENCOUNTER → 2020-04-02 12:30 | Outpatient (CLI) | payer OTHER, SELFPAY ==
--- NOTE | 2020-04-02 13:15 | XR_ITS ---
PROCEDURE: XR CERVICAL SPINE 4V CLINICAL INDICATION: ACUTE NECK PAIN Right-sided neck pain with headache COMPARISON: No exams were available for comparison FINDINGS: There is normal alignment. No fracture or dislocation evident. The disc spaces are well preserved. No prevertebral soft tissue swelling. Artifact is present from piercing. IMPRESSION: Negative cervical spine Dictated by: Agustin Yu MD 04/02/2020 13:56 Electronically signed by Agustin Yu MD in [place] 04/02/2020 13:56
[2020-04-02 13:29] LABS: Anion Gap 10.7 mEq/L (5-15); Blood Urea Nitrogen 10 mg/dl (7-17); Calcium 9.6 mg/dl (8.4-10.2); Carbon Dioxide 27 mmol/L (22.0-30.0); Chloride 97 mmol/L (98-107); Estimated Glomerular Filt Rate 146 ml/min (>60); GFR (African American) 177 ML/MIN (>60); Glucose 297 mg/dl (74-100); Potassium 4.7 mmoL/L (3.5-5.1); Sodium 130 mmol/L (136-145)
[2020-04-02 21:25] LABS: Hemoglobin A1C 10.2 % (4.0-6.0)
== END ==
PROVIDERS: Visit Provider Internal Medicine Adolescent Medicine
DX: E10.65 Type 1 diabetes mellitus with hyperglycemia (principal); Z79.4 Long term (current) use of insulin; M54.2 Cervicalgia
CPT/HCPCS: 36415; 72050; 80048; 83036; 84443

== ENCOUNTER 2020-04-17 13:00 | Outpatient (RCR) | payer OTHER, SELFPAY ==
--- NOTE | 2020-04-08 15:14 | HMH.PTOPEV ---
PT Outpatient Evaluation Rehab PT Outpatient Evaluation Start: 04/08/20 14:41 Freq: Status: Active Protocol: Document 04/08/20 14:41 [email or web address] (Rec: 04/08/20 15:13 [email or web address] [id number]) Electronically Signed By Sundeep Abad, PT 04/08/20 14:41 Outpatient Therapy Subjective History Subjective History Pt. is a 30 year old female who presents to outpatient PT clinic with reports of subacute and constant cervical and R shldr. P! of insidious onset 2 months. Pt. also complains of R-sided HAs originating around the same time as the neck P! . Recent diagnostic imaging on the cervical spine came back negative per pt. report. Pt. denies having injections for current pathology. Pt. describes a burning P! in the R shldr., but denies symptoms radiating inferiorly below shldr. Current medications include Flexiril, Keppra, Trileptal, Metformin, Effexor, and Gabapentin. PMH includes type I diabetes, Epilepsy, Pituitary Cyst, Lumbar Discetomy, Depression disorder, Anxiety disorder, 5 Pulmonary Embolism or PE , and a Power Injectable Implantable Infusion Port. Chief Complaint Pain,Stiff Symptom Type Throb,Burning Symptoms Relieved By Rest/Positioning,Prescription Meds Symptoms Aggravated By Physical Activity,Twisting, Lifting Prior Functional Limitations None Current Functional Limitations Reaching,Lifting,Housework, Dressing,Sleeping Symptom Description Constant and Continuous Level of pain today (0-10) 7 Pain scale - at its best (0-10) 5 Pain scale - at its worst (0-10) 9 Cervical Eval Palpation Cervical Muscles R Cervical Paraspinal,R Suboccipital,R CT Junction,R Upper Trapezius,R Thoracic Paraspinals Cervical/Thoracic Palpation Findings Tenderness Posture Head/C-Spine Posture Sitting Position Flexed Head/C-Spine Posture Standing Position Flexe
== END 2020-05-14 14:00 | disposition home or self-care (01) ==
LOC: PT.CARL 13:00
PROVIDERS: PCP Internal Medicine Adolescent Medicine; Visit Provider Internal Medicine Adolescent Medicine
DX: M54.2 Cervicalgia (principal)
CPT/HCPCS: 97014; 97110; 97140; 97163; G0283

== ENCOUNTER 2020-05-24 14:24 | Inpatient (IN) | payer OTHER, SELFPAY ==
[2020-05-24] VITALS (9 sets, daily range): BP systolic 114–137; BP diastolic 74–96; PULSE 70–98; RESP 16–20; TEMP 36.7–37.4; O2SAT 95–99; BMI 32.1; BMI 32.6
[2020-05-24 14:38] LABS: Microscopic, Urine URINE MICROSCOPIC (MICROSCOPIC)
[2020-05-24 14:40] LABS: Appearance,Urine CLEAR (Clear); Bilirubin,Urine Negative (Negative); Blood, Urine Negative (Negative); Color,Urine YELLOW (Yellow); Glucose,Urine (UA) 3+ (Negative); Ketones,Urine 3+ (Negative); Leukocyte Esterase,Urine Negative (Negative); Nitrate,Urine Negative (Negative); PH,Urine 5.5 (5.0-8.5); Protein,Urine Negative (Negative); Specific Gravity, Urine >= 1.030 (1.005-1.030); Urobilinogen,Urine 0.2 EU/dl (0.2)
[2020-05-24 14:41] LABS: Basophils # 0.1 K/mm3 (0-0.2); Basophils % 0.5 % (0.1-2.0); Eosinophils # 0.1 K/mm3 (0.0-0.4); Eosinophils % 0.9 % (0.1-12.0); Hematocrit 41.7 % (37.0-47.0); Hemoglobin 14.6 g/dL (12.2-16.2); Lymphocytes # 1.6 K/mm3 (0.7-4.5); Lymphocytes % 14.7 % (10-50); Mean Corpuscular HGB Conc 34.9 g/dL (31.8-35.4); Mean Corpuscular Hemoglobin 28.5 pg (27.0-31.2); Mean Corpuscular Volume 81.6 fl (81-99); Monocytes # 0.3 K/mm3 (0.1-1.0); Monocytes % 2.4 % (1.7-9.3); Neutrophils # 9.1 K/mm3 (1.8-7.8); Neutrophils % 81.5 % (37.0-80.0); Platelet Count 305 K/mm3 (142-424); Red Blood Count 5.11 M/mm3 (4.20-5.40); Red Cell Distribution Width 13.8 % (11.5-17.5); White Blood Count 11.1 K/mm3 (4.8-10.8)
[2020-05-24 14:45] LABS: Urine Pregnancy, HCG Qual. Negative (Negative)
--- NOTE | 2020-05-24 14:45 | PC.NURSE ---
lab called stated red and green top tubes were hemolyzed asked them to come down and redraw pt
[2020-05-24 14:48] LABS: POC Glucose,Bedside 332 (70-110)
[2020-05-24 14:52] LABS: Bacteria,Urine 1+ /lpf; RBC,Urine Occasional #/hpf (0-3)
[2020-05-24 15:12] LABS: Chloride 99 mmol/L (98-107); Potassium 3.9 mmoL/L (3.5-5.1); Sodium 131 mmol/L (136-145)
[2020-05-24 15:15] LABS: Alanine Aminotransferase 19 U/L (12-78); Albumin Level 4.4 g/dl (3.5-5.0); Albumin/Globulin Ratio 1.2 (1.1-1.8); Alkaline Phosphatase 139 U/L (38-126); Anion Gap 16.9 mEq/L (5-15); Aspartate Amino Transferase 23 U/L (14-36); Bilirubin,Total 0.6 mg/dl (0.2-1.3); Blood Urea Nitrogen 14 mg/dl (7-17); Carbon Dioxide 19 mmol/L (22.0-30.0); Creatinine Clearance Estimated 179 mL/min (50-200); Estimated Glomerular Filt Rate 118 ml/min (>60); GFR (African American) 143 ML/MIN (>60); Globulin 3.6 g/dL (1.3-3.2)
[2020-05-24 15:16] LABS: Calcium 9.1 mg/dl (8.4-10.2); Glucose 336 mg/dl (74-100)
[2020-05-24 15:17] LABS: Acetone, Serum (Rapid) Moderate (None Detect)
--- NOTE | 2020-05-24 15:24 | PC.NURSE ---
contacted pharmacy to mix insulin drip
--- NOTE | 2020-05-24 16:05 | PC.NURSE ---
placed call to Dr Ayala for admission
--- NOTE | 2020-05-24 16:07 | HMH.EDGENADL ---
ED Disposition Clinical Impression: Diabetic ketoacidosis Disposition: Admitted as Observation Condition on Discharge: Good Instructions: DI for Hyperglycemia -- Adult Referrals: Km Reynaga MD [Primary Care Provider] - - Critical Care Critical Care Time: No Attestation: On 05/24/20, the high probability of a clinically significant, sudden or life threatening deterioration of the following system(s) required my full and direct attention, intervention and personal management. The time I documented below is in addition to time spent performing reported procedures but includes the following listed in this critical care notation. Medical Decision Making - Medical Records Medical records reviewed: Yes: I reviewed the patient's medical records. - Jamari Inquiry Pt receiving controlled substance: No Vital Signs: 05/24/20 14:24 05/24/20 14:46 05/24/20 15:24 Temperature 98.0 F Temperature Source Oral Pulse Rate [Right Radial] 89 89 86 Respiratory Rate 18 18 18 Blood Pressure [Right Arm] 114/87 137/89 124/96 H Blood Pressure Mean [Right Arm] 96 105 105 Blood Pressure Source [Right Arm] Automatic Cuff Automatic Cuff Blood Pressure Position [Right Arm] Sitting Supine Sitting 02 Sat by Pulse Oximetry 98 98 98 Oxygen Delivery Method Room Air - Lab Data Lab results reviewed: Yes: I reviewed the patient's lab results. Lab Results 05/24/20 14:30: Urine Color Yellow, Urine Appearance Clear, Urine pH 5.5, Ur Specific [place] >= 1.030, Urine Protein Negative, Urine Glucose (UA) 3+, Urine Ketones 3+, Urine Blood Negative, Urine Nitrate Negative, Urine Bilirubin Negative, Urine Urobilinogen 0.2, Ur Leukocyte Esterase Negative, Urine RBC Occasional, Urine WBC 3-5, Ur Squamous Epith Cells 10-20, Urine Bacteria 1+ 05/24/20 14:30: Urine HCG, Qual Negative 05/24/20 14:35: WBC 11.1 H, RBC 5.11, Hgb 14.6, Hct 41.7, MCV 81.6, MCH 28.5, MCHC 34.9, RDW 13.8, Plt Count 305, MPV 9.0, Neut % (Auto) 81.5 H, Lymph % (Auto) 14.7, [place] % (Auto) 2.4, Eos % (Auto) 0.9, Baso % (Auto) 0.5, Neut # (Auto) 9.1 H, Lymph # (Auto) 1.6, [place] # (Auto) 0.3, Eos # (Auto) 0.1, Baso # (Auto) 0.1 05/24/20 14:45: POC Glucose 332 H* 05/24/20 14:55: Sodium 131 L, Potassium 3.9, Chloride 99, Carbon Dioxide 19 L, Anion Gap 16.9 H, BUN 14, Creatinine 0.60, Estimated Creat Clear 179, Estimated GFR 118, Est GFR ( Amer) 143, Glucose 336 H, Calcium 9.1, Total Bilirubin 0.6, AST 23, ALT 19, Alkaline Phosphatase 139 H, Total Protein 8.0, Albumin 4.4, Globulin 3.6 H, Albumin/Globulin Ratio 1.2, Acetone Level Moderate Result diagrams: 05/24/20 14:35 05/24/20 14:55 Orders (Tests/Meds): ED MEDICATIONS Generic Name Dose Route Start Last Admin Trade Name Freq PRN Reason Stop Dose Admin Insulin Human Regular 100 unit 101 mls @ 2.02 mls/hr 05/24/20 15:30 05/24/20 15:59 / Sodium Chloride IV 06/23/20 15:29 2.02 mls/hr .Q25H DALIA Administration Protocol 2 UNITS/HR Discontinued Medications Generic Name Dose Route Start Last Admin Trade Name Freq PRN Reason Stop Dose Admin Sodium Chloride 1,000 mls @ 999 mls/hr 05/24/20 14:45 05/24/20 14:55 Sod Chlor 0.9% 1000ml Bag IV 05/24/20 15:45 999 mls/hr .Q1H1M DALIA Administration Promethazine HCl 12.5 mg 05/24/20 14:55 05/24/20 15:05 Phenergan 25mg/Ml 1ml Vial IV 05/24/20 14:56 12.5 mg ONCE ONE Administration Sodium Chloride 25 ml 05/24/20 14:55 05/24/20 15:05 Sod Chlor 0.9% 25ml Bag IV 05/24/20 14:56 25 ml ONCE ONE Administration Medical Decision Narrative: She had moderate amount of serum ketones and also +3 ketones in urine. She is in DKA. We will go ahead and start her on insulin drip at 2 units/h. To Dr. Ayala for admission. General Adult HPI - General Chief complaint: Hyper/Hypoglycemia Stated complaint: elevated blood sugar Time Seen by Provider: 05/24/20 16:00 Mode of Arrival: EMS Source of Information: Patient Limitations: No Limit
[2020-05-24 17:35] LABS: POC Glucose,Bedside 217 (70-110)
--- NOTE | 2020-05-24 17:37 | HMH.HP ---
*Admission Date: 05/24/20 *Chief complaint: nausea, diarrhea, DKA *History of present illness: Ms. Bolton is a 30-year-old female well-known to our practice with history of poorly controlled diabetes. She presented to the ER today due to worsening onset of abdominal pain, 3 days of diarrhea, and inability to get her blood sugar below 300 at home. She has been trying to do oral rehydration and sick day management at home but was unsuccessful. After trying for 36 to 48 hours, decided to come to the ER due to inability to stay hydrated. On presentation found to have significant abdominal pain, nausea, and lab abnormalities consisting of the following: Hyperglycemia, anion gap metabolic acidosis, hypokalemia, ketones in her serum and urine, and inability to tolerate p.o. intake. She was initiated on insulin drip and DKA protocol. She denies any fevers, shortness of breath, dysuria. Stools have had some scant blood and dark green color to them. Of note, she has had previous episodes of C. difficile colitis. Most recently treated about 15 months ago. Admitted to medicine for further management [facility] History I have reviewed the patient's past medical history: Yes Medical History: Reports:: Arrhythmia, Deep Vein Thrombosis, Depression, Diabetes Mellitus Type 1, MRSA, Palpitations, Pulmonary Embolism, Seizures Denies:: Cancer, Diabetes Mellitus Type 2, Internal Pacemaker *Have you ever received a pneumonia vaccine?: Yes *Have you received a flu vaccine this season?: Yes Other Medical History: Reports: Anemia, Other. Denies: Blood Transfusion Reaction Laterality Cases: Bilateral: Other Other Surgeries: Yes: Appendectomy, Cholecystectomy, Dilation and Curettage, Hysterectomy-Partial ( everything but left ovary ), Tubal Ligation, Other (ablation). No: Pacemaker Amputation: No Fractures: No - *Social History Educational Level: Completed High School Smoking Status: Former smoker Tobacco Type: cigarettes # Packs/Day (cigarettes): 1 #Yrs smoked (if former smoker): 4 Alcohol Intake: never Alcohol Intake Frequency:: holidays/special occasions only Substance Use Type: former substance user *Occupational Status:: disabled Housing: apartment Household Members: significant other *Travel in the last 8 weeks: None - Psychiatric History Pschychiatric History:: Reports:: Depression Family Hx:: Cancer, Diabetes, Heart Attack, Hyperlipidemia, Hypertension, Kidney Disease, Alcoholism Review of Systems - Review of Systems Review of systems:: pertinent systems reviewed and negative unless documented below (14 point review of systems performed, pertinent positives and negatives as per HPI) Meds Home Medications Medication Instructions Recorded Confirmed Type OXcarbazepine [Trileptal 300mg 1,200 mg PO BID 11/03/18 05/24/20 History tablet] methocarbamoL [Methocarbamol 500mg 500 - 1,000 mg PO Q8HP PRN 11/09/18 05/24/20 History Tablet] Sennosides/Docusate Sodium 2 each PO HSP PRN 06/11/19 05/24/20 History [Docusate Sodium-Senna Tablet] Venlafaxine HCl [Effexor XR 75mg 75 mg PO DAILY 12/15/19 05/24/20 History capsule] Gabapentin [Gabapentin 300mg Cap] 300 mg PO TID 01/28/20 05/24/20 History Insulin Lispro [Humalog Kwikpen 25 unit SUB-Q AC 01/28/20 05/24/20 History U-100] Metformin HCl 250 mg PO DAILY 01/28/20 05/24/20 History raNITIdine HCl [Acid Vineyard Supervisor] 150 mg PO BID 01/28/20 05/24/20 History Levothyroxine Sodium 25 mcg PO DAILY 01/29/20 05/24/20 History [Levothyroxine 25mcg (0.025mg) Tab] levETIRAcetam [Levetiracetam] 2,000 mg PO BID 01/29/20 05/24/20 History Insulin Glargine,Hum.rec.anlog 50 unit SQ HS 05/24/20 05/24/20 History [Basaglar Kwikpen U-100] Allergies Allergy/AdvReac Type Severity Reaction Status Date / Time buspirone [BUSPIRONE] Allergy Severe Seizure Verified 12/15/19 05:31 nitrofurantoin Allergy Severe Seizure Verified 01/28/20 15:29 [NITROFURANTOIN] sulfamethoxazole Allergy Severe Seizure Verified 0
[2020-05-24 18:26] LABS: POC Glucose,Bedside 226 (70-110)
--- NOTE | 2020-05-24 19:03 | PC.NURSE ---
report given to erika
--- NOTE | 2020-05-24 19:14 | PC.NURSE ---
PT IS SITTING UP IN BED. RECEIVED PAIN MEDICATION FOR DISCOMFORT. PT HAS BEEN AMBULATING TO THE BATHROOM. INSULIN DRIP AT 2 UNITS/HR. LAST BLOOD SUGAR WAS AT 18OO WAS 226. PT STATED TO PCP SHE HAS BEEN HAVING DIARRHEA AT HOME. DIARRHEA PANEL ORDERED. PCP STATED IF POSITIVE FOR CDIFF ORDER VANCOMYCIN 250 MG PO QID. PT HAS NOT HAD ANY DIARRHEA SINCE ARRIVING TO THE HOSPITAL. EATING AND DRINKING WELL. VSS. LUNG SOUNDS CLEAR. BOWEL SOUNDS NORMAL. REPORT HANDOFF TO RAMIRO DIAZ RN.
--- NOTE | 2020-05-24 20:00 | PC.NURSE ---
PT REFUSED USE OF SEIZURE PADS. PT STATED I HAVEN'T HAD A SEIZURE IN A LONG TIME AND I DO NOT LIKE THEM ON MY SIDE RAILS. REMINDED PT OF SIGNIFICANCE OF USE OF SEIZURE PADS, IT IS A SAFETY MEASURE. PT REPORTED I KNOW, I JUST DO NOT WANT THEM ON MY BED.
[2020-05-24 20:17] LABS: Anion Gap 9.4 mEq/L (5-15); Blood Urea Nitrogen 14 mg/dl (7-17); Calcium 9.1 mg/dl (8.4-10.2); Carbon Dioxide 28 mmol/L (22.0-30.0); Chloride 99 mmol/L (98-107); Creatinine Clearance Estimated 122 mL/min (50-200); Estimated Glomerular Filt Rate 74 ml/min (>60); GFR (African American) 90 ML/MIN (>60); Glucose 286 mg/dl (74-100); Potassium 4.4 mmoL/L (3.5-5.1); Sodium 132 mmol/L (136-145)
[2020-05-25] VITALS (11 sets, daily range): BP systolic 99–135; BP diastolic 55–76; PULSE 60–95; RESP 16–18; TEMP 36.6–37.1; O2SAT 94–100; BMI 32.6
[2020-05-25 00:12] LABS: POC Glucose,Bedside 264 (70-110)
[2020-05-25 00:12] LABS: POC Glucose,Bedside 274 (70-110)
[2020-05-25 00:12] LABS: POC Glucose,Bedside 150 (70-110)
--- NOTE | 2020-05-25 03:27 | PC.NURSE ---
A&OX3. PERRLA NOTED IN LEFT EYE. 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 WEIGHT COUNT OPERATOR EQUAL BILAT. PULSES +2. NSR NOTED PER MUSIC ENGINEER. LUNGS DIMINISHED T/O AUSCULTATION. TOLERATED RA WELL T/O SHIFT. ABDOMEN NONDISTENDED, ACTIVE BOWEL SOUNDS IN ALL QUADS, SOFT AND MILD TENDERNESS PER PALPATION. NO BM NOTED THIS SHIFT. CONTACT ENTERIC ISOLATION REMAINED IN PLACE T/O SHIFT. PT C/O TOLERABLE ABDOMINAL PAIN SINCE ADMINISTRATION OF PRN PAIN MEDICATION GIVEN PER JAN. C/O NAUSEA THIS SHIFT, ADMINISTERED ZOFRAN PER JAN, ON REASSESSMENT PT REPORTED NAUSEA WAS UNRELIEVED, NOTIFIED , ORDERED PHENERGAN AND WAS ADMINISTERED PER JAN, ON REASSESSMENT PT WAS NOTED RESTING WITH EYES CLOSED. MAINTAINED FULL LIQUID DIET THIS SHIFT. INSULIN GTT WAS DC'D PER MD ORDERS, TOLERATED WELL, INSULIN ORDER WAS CHANGED PER MD TO HOME DOSE OF LANTUS AND ACHS SSI. ADVISED PT TO NOTIFY STAFF IF ANY SYMPTOMS OCCUR OF HYPOGLYCEMIA, PT VERBALIZED UNDERSTANDING. PORT NOTED TO UPPER CHEST WALL, CDI, NO S/S OF INFECTION AND UNACCESSED. VSS. WILL CONTINUE TO MONITOR.
[2020-05-25 05:28] LABS: Basophils # 0.1 K/mm3 (0-0.2); Basophils % 0.7 % (0.1-2.0); Eosinophils # 0.2 K/mm3 (0.0-0.4); Eosinophils % 2.7 % (0.1-12.0); Hematocrit 33.4 % (37.0-47.0); Lymphocytes # 2.4 K/mm3 (0.7-4.5); Lymphocytes % 38.2 % (10-50); Mean Corpuscular Hemoglobin 28.4 pg (27.0-31.2); Mean Corpuscular Volume 83.6 fl (81-99); Mean Platelet Volume 8.9 fl (7.4-10.4); Monocytes # 0.3 K/mm3 (0.1-1.0); Monocytes % 4.4 % (1.7-9.3); Neutrophils # 3.4 K/mm3 (1.8-7.8); Platelet Count 203 K/mm3 (142-424); Red Cell Distribution Width 13.7 % (11.5-17.5); White Blood Count 6.3 K/mm3 (4.8-10.8)
[2020-05-25 05:32] LABS: Hemoglobin 11.4 g/dL (12.2-16.2)
[2020-05-25 05:36] LABS: Alanine Aminotransferase 13 U/L (12-78); Albumin Level 3.6 g/dl (3.5-5.0); Albumin/Globulin Ratio 1.1 (1.1-1.8); Alkaline Phosphatase 132 U/L (38-126); Anion Gap 9.1 mEq/L (5-15); Aspartate Amino Transferase 22 U/L (14-36); Bilirubin,Total 0.3 mg/dl (0.2-1.3); Blood Urea Nitrogen 13 mg/dl (7-17); Calcium 8.7 mg/dl (8.4-10.2); Carbon Dioxide 26 mmol/L (22.0-30.0); Chloride 101 mmol/L (98-107); Creatinine Clearance Estimated 219 mL/min (50-200); Estimated Glomerular Filt Rate 146 ml/min (>60); GFR (African American) 177 ML/MIN (>60); Globulin 3.2 g/dL (1.3-3.2); Glucose 234 mg/dl (74-100); Potassium 4.1 mmoL/L (3.5-5.1); Sodium 132 mmol/L (136-145); Total Protein,Serum 6.8 g/dl (6.3-8.2)
--- NOTE | 2020-05-25 05:40 | PC.NURSE ---
URINE CLEAR AND YELLOW WITH SEDIMENT NOTED. PT INDEPENDENT WITH AMBULATING TO AND FROM BATHROOM. TOLERATED WELL.
[2020-05-25 05:52] LABS: POC Glucose,Bedside 210 (70-110)
--- NOTE | 2020-05-25 07:29 | HMH.ACPN2 ---
Internal Medicine - PN: Subj *Date: 05/25/20 *Time: 08:02 Interval history: Patient did well overnight, nausea responded well to Phenergan and patient slept comfortably. Complains of some mild abdominal pain this morning but better. Denies chest pain, shortness of breath, diarrhea or bowel movements. Reviewed labs this morning, showing overall improvement. Exam Vital signs and Labs for Last 24 Hours: Temp Pulse Resp BP Pulse Ox 98.7 F 66 17 103/59 L 96 05/25/20 06:00 05/25/20 06:00 05/25/20 06:00 05/25/20 06:00 05/25/20 06:00 Laboratory Results - last 24 hr 05/24/20 14:30: Urine Color Yellow, Urine Appearance Clear, Urine pH 5.5, Ur Specific [place] >= 1.030, Urine Protein Negative, Urine Glucose (UA) 3+, Urine Ketones 3+, Urine Blood Negative, Urine Nitrate Negative, Urine Bilirubin Negative, Urine Urobilinogen 0.2, Ur Leukocyte Esterase Negative, Urine RBC Occasional, Urine WBC 3-5, Ur Squamous Epith Cells 10-20, Urine Bacteria 1+ 05/24/20 14:30: Urine HCG, Qual Negative 05/24/20 14:35: WBC 11.1 H, RBC 5.11, Hgb 14.6, Hct 41.7, MCV 81.6, MCH 28.5, MCHC 34.9, RDW 13.8, Plt Count 305, MPV 9.0, Neut % (Auto) 81.5 H, Lymph % (Auto) 14.7, [place] % (Auto) 2.4, Eos % (Auto) 0.9, Baso % (Auto) 0.5, Neut # (Auto) 9.1 H, Lymph # (Auto) 1.6, [place] # (Auto) 0.3, Eos # (Auto) 0.1, Baso # (Auto) 0.1 05/24/20 14:45: POC Glucose 332 H* 05/24/20 14:55: Sodium 131 L, Potassium 3.9, Chloride 99, Carbon Dioxide 19 L, Anion Gap 16.9 H, BUN 14, Creatinine 0.60, Estimated Creat Clear 179, Estimated GFR 118, Est GFR ( Amer) 143, Glucose 336 H, Calcium 9.1, Total Bilirubin 0.6, AST 23, ALT 19, Alkaline Phosphatase 139 H, Total Protein 8.0, Albumin 4.4, Globulin 3.6 H, Albumin/Globulin Ratio 1.2, Acetone Level Moderate 05/24/20 17:07: POC Glucose 217 H 05/24/20 18:19: POC Glucose 226 H 05/24/20 19:57: POC Glucose 264 H 05/24/20 19:58: Sodium 132 L, Potassium 4.4, Chloride 99, Carbon Dioxide 28 D, Anion Gap 9.4, BUN 14, Creatinine 0.90 D, Estimated Creat Clear 122, Estimated GFR 74, Est GFR ( Amer) 90 D, Glucose 286 H, Calcium 9.1 05/24/20 22:07: POC Glucose 150 H 05/25/20 00:04: POC Glucose 274 H 05/25/20 05:10: WBC 6.3 D, RBC 4.00 L, Hgb 11.4 L D, Hct 33.4 L, MCV 83.6, MCH 28.4, MCHC 34.0, RDW 13.7, Plt Count 203 D, MPV 8.9, Neut % (Auto) 54.0, Lymph % (Auto) 38.2, [place] % (Auto) 4.4, Eos % (Auto) 2.7, Baso % (Auto) 0.7, Neut # (Auto) 3.4, Lymph # (Auto) 2.4, [place] # (Auto) 0.3, Eos # (Auto) 0.2, Baso # (Auto) 0.1 05/25/20 05:10: Sodium 132 L, Potassium 4.1, Chloride 101, Carbon Dioxide 26, Anion Gap 9.1, BUN 13, Creatinine 0.50 L D, Estimated Creat Clear 219, Estimated GFR 146, Est GFR ( Amer) 177 D, Glucose 234 H, Calcium 8.7, Total Bilirubin 0.3, AST 22, ALT 13 D, Alkaline Phosphatase 132 H, Total Protein 6.8, Albumin 3.6 D, Globulin 3.2, Albumin/Globulin Ratio 1.1 05/25/20 05:37: POC Glucose 210 H I & O for Last 24 hours: Intake & Output 05/22/20 05/23/20 05/24/20 05/25/20 23:59 23:59 23:59 23:59 Intake Total 1100 / 1100 1247 / 1247 Output Total 300 / 300 Balance 1100 / 1100 947 / 947 Weight 83.574 kg 83.574 kg Narrative: - Constitutional no acute distress, obese - *Routine HEENT Exam Head: Present: normocephalic Eye: Present: EOMI, PERRL ENT: Present: mucous membranes moist Comments: Cataract in right eye, - *Routine Neck Exam Present: supple. Absent: lymphadenopathy - *Routine Respiratory Exam Present: CTA bilaterally - *Routine Cardiovascular Exam Present: RRR - *Routine Abdominal Exam Present: soft, tenderness Comments: normoactive bowel sounds, diffuse tenderness intervally improved - *Routine Extremities Exam Absent: cyanosis, clubbing, edema - *Routine Skin Exam Present: warm. Absent: rash - *Routine Neurological Exam Present: alert, oriented X3 Assessment and Plan (1) Diabetic ketoacidosis Current visit: Yes Status: Resolved Qualifiers: Diabetes sonya
--- NOTE | 2020-05-25 09:06 | HMH.PHAVTE ---
[facility] Pharmacy VTE Monitoring - Patient Demographics Admission date: 05/24/20 Report Date: 05/25/20 Time: 09:06 Allergies/Adverse Reactions: Patient Allergies buspirone [BUSPIRONE] Allergy (Severe, Verified 12/15/19 05:31) Seizure nitrofurantoin [NITROFURANTOIN] Allergy (Severe, Verified 01/28/20 15:29) Seizure sulfamethoxazole [From BACTRIM] Allergy (Severe, Verified 01/28/20 15:29) Seizure trimethoprim [From BACTRIM] Allergy (Severe, Verified 01/28/20 15:29) Seizure topiramate [From TOPAMAX] Allergy (Unknown, Verified 01/28/20 15:29) adhesive tape Adverse Reaction (Intermediate, Verified 01/28/20 15:29) SKIN IRRITATION Height: 1.6 m Weight: 83.574 kg Patient Problems: Current Active Problems Hyponatremia (Acute) - VTE Risk Labs: VTE Related Lab Results Hgb 11.4 g/dL (12.2-16.2) L D 05/25/20 05:10 Hct 33.4 % (37.0-47.0) L 05/25/20 05:10 Plt Count 203 K/mm3 (142-424) D 05/25/20 05:10 BUN 13 mg/dl (7-17) 05/25/20 05:10 Creatinine 0.50 mg/dl (0.52-1.04) L D 05/25/20 05:10 Estimated Creat Clear 219 mL/min (50-200) 05/25/20 05:10 - Prophylaxis VTE Prophylaxis Ordered?: Yes Types of VTE Prophylaxis: TEDS Knee High Location of Applied Device: Bilateral Lower Extremeties - VTE Diagnosis Confirmed Treatment or plan recommended: Continue Current Treatment
--- NOTE | 2020-05-25 09:44 | HMH.PHAINT ---
MEDICATION RECONCILIATION COMPLETED ON PATIENT USING EXTERNAL FILL HISTORY FROM PHARMACY AND PATIENT INTERVIEW. -BRENDA CHARLES, SADID
[2020-05-25 10:45] LABS: Hemoglobin A1C 11.4 % (4.0-6.0)
[2020-05-25 12:12] LABS: POC Glucose,Bedside 68 (70-110)
[2020-05-25 12:12] LABS: POC Glucose,Bedside 198 (70-110)
--- NOTE | 2020-05-25 15:45 | PC.NURSE ---
Patient has slept on and off most of the day, after advancing her diet at lunch and eating her meal she c/o nausea and abdominal pain, treated with zofran and oxycodone prn per emar, had some relief, states she thinks the solid food caused her discomfort, at lunchtime patients blood glucose was 68, after eating lunch rechecked and was 198. Remains on RA, lungs CTA, abd soft but mildly tender, active bowel sounds in all quads, has not had BM this shift, alert and oriented x4, no s/s of distress noted, vss, will continue to monitor for changes.
[2020-05-25 16:30] LABS: POC Glucose,Bedside 446 (70-110)
--- NOTE | 2020-05-25 18:29 | PC.NURSE ---
Patients IV infiltrated, accessed portacath at this time using sterile technique, pt tolerated well.
[2020-05-25 20:50] LABS: POC Glucose,Bedside 201 (70-110)
[2020-05-25 22:49] LABS: POC Glucose,Bedside 62 (70-110)
--- NOTE | 2020-05-25 23:06 | PC.NURSE ---
pt rang out at 2245 stating she felt like her BS was low, FS was 62, pt given apple juice, peanut butter and crackers, rechecked at 2300, BS was 96
[2020-05-25 23:09] LABS: POC Glucose,Bedside 96 (70-110)
[2020-05-26 01:11] LABS: POC Glucose,Bedside 132 (70-110)
[2020-05-26 04:00] VITALS: BP 111/59; PULSE 69; RESP 17; TEMP 36.8; O2SAT 97
[2020-05-26 04:15] LABS: POC Glucose,Bedside 154 (70-110)
--- NOTE | 2020-05-26 05:40 | PC.NURSE ---
shift summary, pt rested well rest of night, complained of N/V earlier in shift, no further complaints as of this morning
[2020-05-26 06:34] LABS: POC Glucose,Bedside 146 (70-110)
[2020-05-26 06:40] VITALS: BMI 33.9
[2020-05-26 06:51] LABS: Basophils % 0.5 % (0.1-2.0); Eosinophils # 0.2 K/mm3 (0.0-0.4); Eosinophils % 2.8 % (0.1-12.0); Hematocrit 32.6 % (37.0-47.0); Hemoglobin 10.8 g/dL (12.2-16.2); Lymphocytes # 2.2 K/mm3 (0.7-4.5); Lymphocytes % 38.8 % (10-50); Mean Corpuscular HGB Conc 33.2 g/dL (31.8-35.4); Mean Corpuscular Hemoglobin 27.9 pg (27.0-31.2); Mean Corpuscular Volume 83.9 fl (81-99); Mean Platelet Volume 8.7 fl (7.4-10.4); Monocytes # 0.2 K/mm3 (0.1-1.0); Monocytes % 3.6 % (1.7-9.3); Neutrophils % 54.3 % (37.0-80.0); Platelet Count 202 K/mm3 (142-424); Red Blood Count 3.89 M/mm3 (4.20-5.40); White Blood Count 5.6 K/mm3 (4.8-10.8)
[2020-05-26 06:56] LABS: Alanine Aminotransferase 13 U/L (12-78); Albumin Level 3.3 g/dl (3.5-5.0); Albumin/Globulin Ratio 1.1 (1.1-1.8); Alkaline Phosphatase 106 U/L (38-126); Anion Gap 6.6 mEq/L (5-15); Aspartate Amino Transferase 23 U/L (14-36); Blood Urea Nitrogen 9 mg/dl (7-17); Calcium 8.6 mg/dl (8.4-10.2); Carbon Dioxide 30 mmol/L (22.0-30.0); Chloride 100 mmol/L (98-107); Creatinine Clearance Estimated 228 mL/min (50-200); Estimated Glomerular Filt Rate 146 ml/min (>60); GFR (African American) 177 ML/MIN (>60); Globulin 3.1 g/dL (1.3-3.2); Glucose 152 mg/dl (74-100); Magnesium 1.6 mg/dl (1.6-2.3); Potassium 3.6 mmoL/L (3.5-5.1); Sodium 133 mmol/L (136-145); Total Protein,Serum 6.4 g/dl (6.3-8.2)
[2020-05-26 06:58] LABS: Bilirubin,Total < 0.1 mg/dl (0.2-1.3)
[2020-05-26 08:00] VITALS: BP 129/77; PULSE 77; RESP 20; TEMP 36.9; O2SAT 96
--- NOTE | 2020-05-26 09:20 | PC.NURSE ---
THIS MORNING PT ATE 100% OF HER DIABETIC DIET. PT AMBULATED TO THE BATHROOM W/O DIFFICULTY AND REQUESTED SOMETHING FOR NAUSEA. WHEN ENTERING THE ROOM PT NOTICED I HAD ZOFRAN AND STATED IF THAT IS ZOFRAN IT DOES NOT WORK FOR ME. PT THEN REQUESTED PHENERGAN. PT WAS ABLE TO TOLERATE ALL MORNING MEDICATIONS. VS NORMAL. ABDOMEN SOFT/NONTENDER WITH NORMAL BOWEL SOUNDS . PT STATES SHE STILL HAS NOT HAD A BOWEL MOVEMENT SINCE ADMISSION. NO VOMITING SINCE ADMISSION. WILL CONTINUE TO MONITOR.
--- NOTE | 2020-05-26 09:20 | HMH.DCSUM ---
General - General Admission date:: 05/24/20 Discharge date: 05/26/20 HPI HPI: Ms. Bolton is a 30-year-old female well-known to our practice with history of poorly controlled diabetes. She presented to the ER today due to worsening onset of abdominal pain, 3 days of diarrhea, and inability to get her blood sugar below 300 at home. She has been trying to do oral rehydration and sick day management at home but was unsuccessful. After trying for 36 to 48 hours, decided to come to the ER due to inability to stay hydrated. On presentation found to have significant abdominal pain, nausea, and lab abnormalities consisting of the following: Hyperglycemia, anion gap metabolic acidosis, hypokalemia, ketones in her serum and urine, and inability to tolerate p.o. intake. She was initiated on insulin drip and DKA protocol. She denies any fevers, shortness of breath, dysuria. Stools have had some scant blood and dark green color to them. Of note, she has had previous episodes of C. difficile colitis. Most recently treated about 15 months ago. Admitted to medicine for further management Hospital Course Hospital Course: Admitted for diarrhea and DKA. Patient responded quite briskly to DKA protocol with closure of her gap by the first night of admission. Transition to basal bolus regimen for insulin. Gradually advance diet and monitored for further diarrhea output. Had no further stools while admitted. At this time she is remained hemodynamically stable, tolerating p.o. intake with intermittent nausea, and had fair glucose control with correction of electrolyte disturbances. She is meeting criteria for discharge home and is medically stable to do so. Denies chest pain, shortness of breath, vomiting, does complain of some nausea and intermittent abdominal pain, worse after eating. Plan for close follow-up in the outpatient setting. If stools resume, will obtain diarrhea panel to check for C. difficile in the outpatient setting. Plan to send home with a short course of Phenergan for nausea. Will initiate Protonix as she has been on omeprazole in the past for GERD and symptoms are somewhat indicative at this time. Objective Vital signs: Temp Pulse Resp BP Pulse Ox 98.4 F 77 20 129/77 96 05/26/20 08:00 05/26/20 08:00 05/26/20 08:00 05/26/20 08:00 05/26/20 08:00 Narrative: - Constitutional no acute distress, obese - *Routine HEENT Exam Head: Present: normocephalic Eye: Present: EOMI, PERRL ENT: Present: mucous membranes moist Comments: Cataract in right eye, - *Routine Neck Exam Present: supple. Absent: lymphadenopathy - *Routine Respiratory Exam Present: CTA bilaterally - *Routine Cardiovascular Exam Present: RRR - *Routine Abdominal Exam Present: soft, tenderness, normoactive bowel sounds, diffuse tenderness intervally improved - *Routine Extremities Exam Absent: cyanosis, clubbing, edema - *Routine Skin Exam Present: warm. Absent: rash - *Routine Neurological Exam Present: alert, oriented X3 Results Labs on day of discharge: Labs from last 24 hours 05/26/20 05/26/20 05/26/20 06:24 06:24 06:22 WBC 5.6 RBC 3.89 L Hgb 10.8 L Hct 32.6 L MCV 83.9 MCH 27.9 MCHC 33.2 RDW 14.0 Plt Count 202 MPV 8.7 Neut % (Auto) 54.3 Lymph % (Auto) 38.8 [place] % (Auto) 3.6 Eos % (Auto) 2.8 Baso % (Auto) 0.5 Neut # (Auto) 3.0 Lymph # (Auto) 2.2 [place] # (Auto) 0.2 Eos # (Auto) 0.2 Baso # (Auto) 0.0 Sodium 133 L Potassium 3.6 Chloride 100 Carbon Dioxide 30 Anion Gap 6.6 BUN 9 D Creatinine 0.50 L Estimated Creat Clear 228 Estimated GFR 146 Est GFR ( Amer) 177 Glucose 152 H POC Glucose 146 H Hemoglobin A1c Calcium 8.6 Magnesium 1.6 Total Bilirubin < 0.1 L AST 23 ALT 13 Alkaline Phosphatase 106 Total Protein 6.4 Albumin 3.3 L Globulin 3.1 Albumin
[2020-05-26 11:29] LABS: POC Glucose,Bedside 296 (70-110)
--- NOTE | 2020-05-26 12:33 | HMH.PHAINT ---
DISCHARGE COUNSELING COMPLETED ON PATIENT. NEW PRESCRIPTIONS INCLUDE PROTONIX AND PROMETHAZINE. THESE PRESCRIPTIONS WERE SENT TO [facility]. PATIENT IS TO CONTINUE ALL OTHER HOME MEDICATIONS. PATIENT VERBALIZED UNDERSTANDING AND HAD NO QUESTIONS AT THIS TIME. -BRENDA CHARLES, SADID
== END 2020-05-26 13:45 | disposition home or self-care (01) | DRG 639 ==
LOC: ER 16:09 → 2ND 05-25 09:24
PROVIDERS: Admitting Provider Internal Medicine Adolescent Medicine; Emergency Provider Family Medicine; PCP Internal Medicine Adolescent Medicine; Visit Provider Internal Medicine Adolescent Medicine
DX: E10.10 Type 1 diabetes mellitus with ketoacidosis without coma (principal); R11.2 Nausea with vomiting, unspecified; R19.7 Diarrhea, unspecified
CPT/HCPCS: 36415; 80048; 80053; 81001; 81025; 82009; 82962; 83036; 83735; 85025; 96365; 96367; 96375; 99284; J1642; J2405

== ENCOUNTER → 2020-06-03 18:30 | Outpatient (CLI) | payer OTHER, SELFPAY ==
[2020-06-04 11:10] LABS: Adenovirus F 40/41, stool Not Detected (NotDetected); Astrovirus Not Detected (NotDetected); Campylobacter Not Detected (NotDetected); Clostridium Difficile A/B, PCR Not Detected (NotDetected); Cryptosporidium Not Detected (NotDetected); Cyclospora Cayetanesis Not Detected (NotDetected); Entamoeba histolytica Not Detected (NotDetected); Enteroaggregative E coli Not Detected (NotDetected); Enteropathogenic E coli Not Detected (NotDetected); Enterotoxigenic E coli Not Detected (NotDetected); Giardia lamblia Not Detected (NotDetected); Norovirus Not Detected (NotDetected); Plesimonas Shigalloides, PCR Not Detected (NotDetected); Rotavirus A Not Detected (NotDetected); Salmonella, PCR Not Detected (NotDetected); Sapovirus Not Detected (NotDetected); Shiga-like toxin E coli Not Detected (NotDetected); Shigella Enterovasive E coli Not Detected (NotDetected); Vibrio Cholerae Not Detected (NotDetected); Vibrio, PCR Not Detected (NotDetected); Yersinia Entercolitica, PCR Not Detected (NotDetected)
== END ==
PROVIDERS: Visit Provider Internal Medicine Adolescent Medicine
DX: R19.7 Diarrhea, unspecified (principal)
CPT/HCPCS: 87507

== ENCOUNTER 2020-06-26 00:18 | Emergency (ER) | payer OTHER, SELFPAY ==
[2020-06-26 00:23] VITALS: BP 139/107; PULSE 97; RESP 18; TEMP 36.9; O2SAT 97; BMI 30.2
[2020-06-26 00:42] LABS: Basophils # 0.1 K/mm3 (0-0.2); Basophils % 0.5 % (0.1-2.0); Eosinophils # 0.2 K/mm3 (0.0-0.4); Eosinophils % 1.9 % (0.1-12.0); Hematocrit 38.2 % (37.0-47.0); Hemoglobin 12.9 g/dL (12.2-16.2); Lymphocytes # 2.8 K/mm3 (0.7-4.5); Lymphocytes % 30.3 % (10-50); Mean Corpuscular HGB Conc 33.9 g/dL (31.8-35.4); Mean Corpuscular Hemoglobin 28.8 pg (27.0-31.2); Mean Corpuscular Volume 84.8 fl (81-99); Mean Platelet Volume 9.2 fl (7.4-10.4); Monocytes # 0.5 K/mm3 (0.1-1.0); Monocytes % 4.8 % (1.7-9.3); Neutrophils # 5.8 K/mm3 (1.8-7.8); Neutrophils % 62.4 % (37.0-80.0); Platelet Count 299 K/mm3 (142-424); White Blood Count 9.3 K/mm3 (4.8-10.8)
[2020-06-26 00:46] LABS: Alanine Aminotransferase 20 U/L (12-78); Albumin Level 4.5 g/dl (3.5-5.0); Alkaline Phosphatase 194 U/L (38-126); Anion Gap 16.5 mEq/L (5-15); Aspartate Amino Transferase 35 U/L (14-36); Bilirubin,Total 0.4 mg/dl (0.2-1.3); Blood Urea Nitrogen 14 mg/dl (7-17); Calcium 9.9 mg/dl (8.4-10.2); Carbon Dioxide 24 mmol/L (22.0-30.0); Chloride 97 mmol/L (98-107); Creatinine Clearance Estimated 222 mL/min (50-200); Estimated Glomerular Filt Rate 146 ml/min (>60); GFR (African American) 177 ML/MIN (>60); Globulin 4.3 g/dL (1.3-3.2); Glucose 344 mg/dl (74-100); Potassium 4.5 mmoL/L (3.5-5.1); Sodium 133 mmol/L (136-145); Total Protein,Serum 8.8 g/dl (6.3-8.2)
[2020-06-26 01:01] VITALS: BP 155/107; PULSE 90; RESP 17; O2SAT 97
--- NOTE | 2020-06-26 01:01 | HMH.EDGENADL ---
ED Disposition Clinical Impression: Seizure disorder, Type 1 diabetes mellitus with hyperglycemia Disposition: Home, Self-Care Condition on Discharge: Good Instructions: DI for Seizure Disorder -- Adult Additional Instructions: Call Dr. Ayala this morning. Referrals: Srini Ayala MD [Primary Care Provider] - - Critical Care Critical Care Time: No Attestation: On 06/26/20, the high probability of a clinically significant, sudden or life threatening deterioration of the following system(s) required my full and direct attention, intervention and personal management. The time I documented below is in addition to time spent performing reported procedures but includes the following listed in this critical care notation. Medical Decision Making - Jamari Inquiry Pt receiving controlled substance: Yes Jamari was queried for this patient: No Reason not queried -: Emergent pt cond-no time Risks and benefits of using a controlled substance: were not discussed with pt by me Vital Signs: 06/26/20 00:23 06/26/20 01:01 06/26/20 01:40 Temperature 98.4 F Temperature Source Oral Pulse Rate [Right] 97 H 90 95 H Respiratory Rate 18 17 16 Blood Pressure [Right Arm] 139/107 H 155/107 H 137/89 Blood Pressure Mean [Right Arm] 117 123 105 Blood Pressure Source [Right Arm] Automatic Cuff Blood Pressure Position [Right Arm] Supine 02 Sat by Pulse Oximetry 97 97 100 Oxygen Delivery Method Room Air Room Air - Lab Data Lab Results 06/26/20 00:04: WBC 9.3, RBC 4.50, Hgb 12.9, Hct 38.2, MCV 84.8, MCH 28.8, MCHC 33.9, RDW 14.0, Plt Count 299, MPV 9.2, Neut % (Auto) 62.4, Lymph % (Auto) 30.3, [place] % (Auto) 4.8, Eos % (Auto) 1.9, Baso % (Auto) 0.5, Neut # (Auto) 5.8, Lymph # (Auto) 2.8, [place] # (Auto) 0.5, Eos # (Auto) 0.2, Baso # (Auto) 0.1 06/26/20 00:04: Sodium 133 L, Potassium 4.5, Chloride 97 L, Carbon Dioxide 24, Anion Gap 16.5 H, BUN 14, Creatinine 0.50 L, Estimated Creat Clear 222, Estimated GFR 146, Est GFR ( Amer) 177, Glucose 344 H, Calcium 9.9, Total Bilirubin 0.4, AST 35, ALT 20, Alkaline Phosphatase 194 H, Total Protein 8.8 H D, Albumin 4.5, Globulin 4.3 H, Albumin/Globulin Ratio 1.0 L 06/26/20 01:19: Urine Color Yellow, Urine Appearance Clear, Urine pH 7.0, Ur Specific [place] 1.015, Urine Protein Negative, Urine Glucose (UA) 3+, Urine Ketones Negative, Urine Blood Negative, Urine Nitrate Negative, Urine Bilirubin Negative, Urine Urobilinogen 0.2, Ur Leukocyte Esterase Negative, Urine WBC 3-5, Ur Squamous Epith Cells 5-10, Urine Bacteria Trace 06/26/20 01:19: Urine Opiates Screen Negative, Urine Methadone Screen Negative, Ur Barbituates Screen Negative, Ur Phencyclidine Scrn Negative, Ur Amphetamines Screen Negative, U Benzodiazepines Scrn Negative, Urine Cocaine Screen Negative, U Marijuana (THC) Screen Positive H Result diagrams: 06/26/20 00:04 06/26/20 00:04 Orders (Tests/Meds): ED MEDICATIONS Discontinued Medications Generic Name Dose Route Start Last Admin Trade Name Rafiq PRN Reason Stop Dose Admin Diazepam 5 mg 06/26/20 01:18 06/26/20 01:24 Diazepam 5mg Tablet PO 06/26/20 01:19 5 mg ONCE ONE Administration ORDERS Category Date Time Status Levetiracetam (Keppra) Stat Lab 06/26/20 00:55 Received - Physician Consults Physician Consulted: Dr. Reynaga Time: 01:19 Reason -: Pt condition Comment/Response: The patient well. He feels she can be discharged. He requests a dose of diazepam 5 mg orally in the emergency department, a prescription for 2 more doses and instructions for her to call Dr. Ayala in the morning. Medical Decision Narrative: Discussed plan as per Dr. Reynaga. Patient is agreeable, but states that she would not be able to fill a prescription for diazepam unless it is written by Dr. Ayala, because she is on lockdown by her insurance. I advised her to call Dr. Ayala first thing in the morning. She is agreeable. General Adult HPI - General Chi
[2020-06-26 01:25] LABS: Microscopic, Urine URINE MICROSCOPIC (MICROSCOPIC)
[2020-06-26 01:28] LABS: Appearance,Urine CLEAR (Clear); Bilirubin,Urine Negative (Negative); Blood, Urine Negative (Negative); Color,Urine YELLOW (Yellow); Glucose,Urine (UA) 3+ (Negative); Ketones,Urine Negative (Negative); Leukocyte Esterase,Urine Negative (Negative); Nitrate,Urine Negative (Negative); Protein,Urine Negative (Negative); Specific Gravity, Urine 1.015 (1.005-1.030); Urobilinogen,Urine 0.2 EU/dl (0.2)
[2020-06-26 01:40] VITALS: BP 137/89; PULSE 95; RESP 16; O2SAT 100
[2020-06-26 01:44] LABS: Amphetamine/Metha Screen,Urine Negative ng/ml (<1000); Barbiturates Screen,Urine Negative ng/ml (<200); Benzodiazepines Screen,Urine Negative ng/ml (<200); Cannabinoid Screen,Urine Positive ng/ml (<50); Cocaine Screen,Urine Negative ng/ml (<300); Methadone Screen,Urine Negative ng/ml (<300); Opiate Screen,Urine Negative ng/ml (<300); Phencyclidine Screen,Urine Negative ng/ml (<25)
[2020-06-26 01:46] LABS: Bacteria,Urine Trace /lpf
[2020-06-26 02:11] VITALS: BP 135/90; PULSE 104; RESP 16; TEMP 36.9; O2SAT 96
--- NOTE | 2020-06-26 02:20 | PC.NURSE ---
pt stated her boyfriend gets off work at 2am in [place] and is on his way to pick her up
[2020-06-29 19:22] LABS: Levetiracetam (Keppra) 68.2 ug/mL (10.0-40.0)
== END 2020-06-26 02:56 | disposition home or self-care (01) ==
PROVIDERS: Emergency Provider Emergency Medicine; PCP Internal Medicine Adolescent Medicine
DX: G40.909 Epilepsy, unspecified, not intractable, without status epilepticus (principal); E10.65 Type 1 diabetes mellitus with hyperglycemia; Z79.4 Long term (current) use of insulin; Z79.84 Long term (current) use of oral hypoglycemic drugs; F12.10 Cannabis abuse, uncomplicated; F33.1 Major depressive disorder, recurrent, moderate; Z86.711 Personal history of pulmonary embolism; Z87.891 Personal history of nicotine dependence; Z88.2 Allergy status to sulfonamides; Z88.8 Allergy status to other drugs, medicaments and biological substances; Z91.048 Other nonmedicinal substance allergy status; Z90.49 Acquired absence of other specified parts of digestive tract; Z79.899 Other long term (current) drug therapy
CPT/HCPCS: 80053; 80177; 80305; 81001; 85025; 99283

== ENCOUNTER 2020-07-12 23:40 | Emergency (ER) | payer OTHER, SELFPAY ==
[2020-07-12 23:34] VITALS: BP 158/107; PULSE 86; RESP 18; TEMP 36.8; O2SAT 98; BMI 33.1
--- NOTE | 2020-07-13 00:06 | PC.NURSE ---
up to bathroom. pt ambulated approx 60 feet independently. no acute distress. emv 15.
--- NOTE | 2020-07-13 00:09 | XR_ITS ---
PROCEDURE: XR CHEST PORTABLE CLINICAL HISTORY: chest discomfort COMPARISON: CT AGCHEST CT angio chest from 02/10/2019 CR CXR2V XR chest 2V from 04/01/2019 CR XR CHEST PORTABLE from 12/15/2019 CR XR CHEST PORTABLE from 01/28/2020 FINDINGS: This is somewhat of a lordotic projection however lung piedra are fairly well expanded and appear clear of infiltrate. Cardiac size is borderline however the vascularity is normal and there is no pleural fluid. There is a right-sided MediPort IJ catheter with the tip in the SVC above the right atrium. IMPRESSION: No acute findings. Dictated by: Dr. Rafiq Rome MD 07/13/2020 07:27 Dr. Rafiq Rome MD in [facility] 07/13/2020 07:27
--- NOTE | 2020-07-13 00:12 | ECG_ITS ---
APPROVED REPORT Exam: Resting ECG HR:81 bpm ECG Measurements Heart Rate 81 AXES TX 190 P 21 QRSd 94 QRS 33 QT 384 T 14 QTc 446 <Conclusion> Normal sinus rhythm Normal ECG Electronically signed by : Chauncey Lorenzo, 07/13/2020 20:55:34
[2020-07-13 00:13] LABS: Microscopic, Urine URINE MICROSCOPIC (MICROSCOPIC)
[2020-07-13 00:18] LABS: Basophils # 0.1 K/mm3 (0-0.2); Basophils % 0.6 % (0.1-2.0); Eosinophils # 0.2 K/mm3 (0.0-0.4); Eosinophils % 1.9 % (0.1-12.0); Hematocrit 34.5 % (37.0-47.0); Lymphocytes # 2.3 K/mm3 (0.7-4.5); Lymphocytes % 27.6 % (10-50); Mean Corpuscular HGB Conc 34.9 g/dL (31.8-35.4); Mean Corpuscular Hemoglobin 28.2 pg (27.0-31.2); Monocytes # 0.3 K/mm3 (0.1-1.0); Monocytes % 4.1 % (1.7-9.3); Neutrophils # 5.4 K/mm3 (1.8-7.8); Neutrophils % 65.7 % (37.0-80.0); Platelet Count 292 K/mm3 (142-424); Red Blood Count 4.26 M/mm3 (4.20-5.40); Red Cell Distribution Width 13.8 % (11.5-17.5); White Blood Count 8.3 K/mm3 (4.8-10.8)
--- NOTE | 2020-07-13 00:21 | HMH.EDGENADL ---
ED Disposition Clinical Impression: Hyperglycemia without ketosis, IDDM (insulin dependent diabetes mellitus), Obesity (BMI 30.0-34.9) Disposition: Home, Self-Care Condition on Discharge: Good Instructions: DI for Hyperglycemia -- Adult Additional Instructions: fluids and see pcp for follow up Referrals: Provider,Referral, [Primary Care Provider] - - Critical Care Critical Care Time: No Attestation: On 07/12/20, the high probability of a clinically significant, sudden or life threatening deterioration of the following system(s) required my full and direct attention, intervention and personal management. The time I documented below is in addition to time spent performing reported procedures but includes the following listed in this critical care notation. Medical Decision Making - Medical Records Medical records reviewed: Yes: I reviewed the patient's medical records. - Jamari Inquiry Pt receiving controlled substance: No Vital Signs: 07/12/20 23:34 Temperature 98.2 F Temperature Source Oral Pulse Rate [Right] 86 Respiratory Rate 18 Blood Pressure [Left Arm] 158/107 H Blood Pressure Mean [Left Arm] 124 Blood Pressure Source [Left Arm] Automatic Cuff Blood Pressure Position [Left Arm] Sitting 02 Sat by Pulse Oximetry 98 Oxygen Delivery Method Room Air - Lab Data Lab results reviewed: Yes: I reviewed the patient's lab results. Lab Results 07/13/20 00:00: WBC 8.3, RBC 4.26, Hgb 12.0 L, Hct 34.5 L, MCV 81.0, MCH 28.2, MCHC 34.9, RDW 13.8, Plt Count 292, MPV 9.0, Neut % (Auto) 65.7, Lymph % (Auto) 27.6, [place] % (Auto) 4.1, Eos % (Auto) 1.9, Baso % (Auto) 0.6, Neut # (Auto) 5.4, Lymph # (Auto) 2.3, [place] # (Auto) 0.3, Eos # (Auto) 0.2, Baso # (Auto) 0.1 07/13/20 00:00: Sodium 127 L, Potassium 3.6, Chloride 91 L, Carbon Dioxide 25, Anion Gap 14.6, BUN 12, Creatinine 0.50 L, Estimated Creat Clear 222, Estimated GFR 146, Est GFR ( Amer) 177, Glucose 232 H, Calcium 9.3, Total Bilirubin 0.2, AST 33, ALT 23, Alkaline Phosphatase 192 H, Troponin I < 0.01, Total Protein 7.6, Albumin 4.0, Globulin 3.6 H, Albumin/Globulin Ratio 1.1, Acetone Level None detected 07/13/20 00:03: Urine Color Yellow, Urine Appearance Clear, Urine pH 6.0, Ur Specific [place] >= 1.030, Urine Protein Trace, Urine Glucose (UA) 3+, Urine Ketones Trace, Urine Blood Negative, Urine Nitrate Negative, Urine Bilirubin Negative, Urine Urobilinogen 0.2, Ur Leukocyte Esterase Negative, Ur Squamous Epith Cells 5-10 Result diagrams: 07/13/20 00:00 07/13/20 00:00 Orders (Tests/Meds): ED MEDICATIONS Generic Name Dose Route Start Last Admin Trade Name Freq PRN Reason Stop Dose Admin Sodium Chloride 1,000 mls @ 999 mls/hr 07/13/20 00:45 07/13/20 00:15 Sod Chlor 0.9% 1000ml Bag IV 07/13/20 01:45 999 mls/hr .Q1H1M DALIA Administration ORDERS Category Date Time Status Chest XR -- portable [XR chest portable] Stat Exams 07/13/20 00:09 Taken Troponin I Q3H Lab 07/13/20 03:15 Ordered Troponin I Q3H Lab 07/13/20 06:15 Ordered - Radiology Data #1 Image(s): Chest Image Reviewed: Yes I reviewed the patient's radiology image Preliminary Findings: Abnormal (cm) - ECG Data Tracing #1 Normal Sinus Rhythm: Yes Ischemic changes: non-specific ST-T wave changes General Adult HPI - General Chief complaint: Hyper/Hypoglycemia Stated complaint: DKA Time Seen by Provider: 07/12/20 23:50 Mode of Arrival: EMS Source of Information: Patient, EMS, Medical Record Limitations: No Limitations Description of Symptoms (Recalled from ER Triage Doc. by RN): pt states she is hurting all over and feels like she is going into DKA. blood sugar aroun 1800 was in the 600's. She took a 30 units of insuling plus 10 more units for coverage and was down to 238 per ems. blood sugar on arrival was 218. - History of Present Illness HPI narrative: achey with ketones in urine and concerned about dka - no fever or vomiting and no diarrhea -
[2020-07-13 00:26] LABS: Alanine Aminotransferase 23 U/L (12-78); Albumin/Globulin Ratio 1.1 (1.1-1.8); Alkaline Phosphatase 192 U/L (38-126); Anion Gap 14.6 mEq/L (5-15); Aspartate Amino Transferase 33 U/L (14-36); Bilirubin,Total 0.2 mg/dl (0.2-1.3); Blood Urea Nitrogen 12 mg/dl (7-17); Calcium 9.3 mg/dl (8.4-10.2); Carbon Dioxide 25 mmol/L (22.0-30.0); Chloride 91 mmol/L (98-107); Creatinine Clearance Estimated 222 mL/min (50-200); Estimated Glomerular Filt Rate 146 ml/min (>60); GFR (African American) 177 ML/MIN (>60); Globulin 3.6 g/dL (1.3-3.2); Glucose 232 mg/dl (74-100); Potassium 3.6 mmoL/L (3.5-5.1); Sodium 127 mmol/L (136-145); Total Protein,Serum 7.6 g/dl (6.3-8.2)
[2020-07-13 00:26] LABS: Appearance,Urine CLEAR (Clear); Bilirubin,Urine Negative (Negative); Blood, Urine Negative (Negative); Color,Urine YELLOW (Yellow); Glucose,Urine (UA) 3+ (Negative); Ketones,Urine TRACE (Negative); Leukocyte Esterase,Urine Negative (Negative); Nitrate,Urine Negative (Negative); Protein,Urine TRACE (Negative); Specific Gravity, Urine >= 1.030 (1.005-1.030); Urobilinogen,Urine 0.2 EU/dl (0.2)
[2020-07-13 00:27] LABS: Acetone, Serum (Rapid) None Detected (None Detect)
[2020-07-13 00:39] LABS: Troponin I < 0.01 ng/ml (0.00-0.034)
[2020-07-13 01:24] VITALS: BP 156/79; PULSE 78; RESP 15; TEMP 36.7; O2SAT 99
[2020-07-13 01:45] VITALS: BP 127/94; PULSE 86; RESP 16; O2SAT 97
[2020-07-13 02:37] LABS: POC Glucose,Bedside 218 (70-110)
== END 2020-07-13 02:00 | disposition home or self-care (01) ==
PROVIDERS: Emergency Provider Emergency Medicine; PCP Internal Medicine Adolescent Medicine
DX: E10.65 Type 1 diabetes mellitus with hyperglycemia (principal); Z79.4 Long term (current) use of insulin; G40.909 Epilepsy, unspecified, not intractable, without status epilepticus; Z79.899 Other long term (current) drug therapy; E66.9 Obesity, unspecified; Z68.33 Body mass index [BMI] 33.0-33.9, adult
CPT/HCPCS: 71045; 80053; 81001; 82009; 82962; 84484; 85025; 93005; 96365; 99283; 99284

== ENCOUNTER 2020-07-22 13:48 | Inpatient (IN) | payer OTHER, SELFPAY ==
[2020-07-22 13:43] VITALS: BP 134/94; PULSE 108; RESP 18; O2SAT 97; BMI 33.1
--- NOTE | 2020-07-22 13:45 | HMH.EDGENADL ---
ED Disposition Clinical Impression: Diabetic ketoacidosis Qualifiers: Diabetes mellitus type: type 1 Diabetes mellitus complication detail: without coma Qualified Code(s): E10.10 - Type 1 diabetes mellitus with ketoacidosis without coma Diabetes mellitus, insulin dependent (IDDM), uncontrolled Qualifiers: Glycemic state: with hyperglycemia Qualified Code(s): E10.65 - Type 1 diabetes mellitus with hyperglycemia Disposition: Admitted As Inpatient Condition on Discharge: Serious Instructions: DI for Hyperglycemia -- Adult Referrals: Srini Ayala MD [Primary Care Provider] - Time of Disposition: 15:25 - Critical Care Critical Care Time: Yes Attestation: On , the high probability of a clinically significant, sudden or life threatening deterioration of the following system(s) required my full and direct attention, intervention and personal management. The time I documented below is in addition to time spent performing reported procedures but includes the following listed in this critical care notation. Total Critical Care Time: 45 Vital system(s) involved:: Metabolic Failure My critical care processes included: Assessment & monitoring of V/S, Initial and Re-exams, Data Review/Interpretation, Coordinating Care, Medication Orders and management, Documentation Medical Decision Making - Medical Records Medical records reviewed: Yes: I reviewed the patient's medical records. - Jamari Inquiry Pt receiving controlled substance: No Vital Signs: 07/22/20 13:43 Pulse Rate [Radial] 108 H Respiratory Rate 18 Blood Pressure [Right Arm] 134/94 H Blood Pressure Mean [Right Arm] 107 Blood Pressure Source [Right Arm] Automatic Cuff Blood Pressure Position [Right Arm] Sitting 02 Sat by Pulse Oximetry 97 Oxygen Delivery Method Room Air - Lab Data Lab Results 07/22/20 14:30: WBC 15.0 H, RBC 4.55, Hgb 13.1, Hct 40.0, MCV 87.9, MCH 28.8, MCHC 32.8, RDW 14.4, Plt Count 332, MPV 8.8, Neut % (Auto) 85.9 H, Lymph % (Auto) 10.7, [place] % (Auto) 1.8, Eos % (Auto) 1.2, Baso % (Auto) 0.4, Neut # (Auto) 12.9 H, Lymph # (Auto) 1.6, [place] # (Auto) 0.3, Eos # (Auto) 0.2, Baso # (Auto) 0.1, Total Counted 100, Neutrophils % (Manual) 86 H, Lymphocytes % (Manual) 14, Platelet Estimate Normal, RBC Morphology Normal 07/22/20 14:30: Sodium 134 L, Potassium 5.1, Chloride 101, Carbon Dioxide 9 L*, Anion Gap 29.1 H, BUN 12, Creatinine 0.60, Estimated Creat Clear 185, Estimated GFR 118, Est GFR ( Amer) 143, Glucose 555 H*, Calcium 8.9, Magnesium 1.8, Acetone Level Large 07/22/20 14:30: Serum HCG, Qual Negative 07/22/20 14:35: Urine Color Yellow, Urine Appearance Clear, Urine pH 5.5, Ur Specific [place] 1.025, Urine Protein Negative, Urine Glucose (UA) 3+, Urine Ketones 3+, Urine Blood Negative, Urine Nitrate Negative, Urine Bilirubin Negative, Urine Urobilinogen 0.2, Ur Leukocyte Esterase Negative, Urine RBC None, Urine WBC Occasional, Ur Squamous Epith Cells 10-20, Amorphous Sediment 1+, Urine Bacteria None Result diagrams: 07/22/20 14:30 07/22/20 14:30 Orders (Tests/Meds): ED MEDICATIONS Generic Name Dose Route Start Last Admin Trade Name Freq PRN Reason Stop Dose Admin Insulin Human Regular 100 unit 101 mls @ 8.585 mls/hr 07/22/20 15:15 / Sodium Chloride IV 08/21/20 15:14 .[id number] DALIA Protocol 8.5 UNIT/HR Potassium Chloride/Water 100 mls @ 50 mls/hr 07/22/20 15:30 Potassium Chloride 20meq/100ml Ivpb IV 07/22/20 19:29 Q2H DALIA Discontinued Medications Generic Name Dose Route Start Last Admin Trade Name Freq PRN Reason Stop Dose Admin Sodium Chloride 1,000 mls @ 999 mls/hr 07/22/20 14:00 07/22/20 14:45 Sod Chlor 0.9% 1000ml Bag IV 07/22/20 15:00 999 mls/hr .Q1H1M DALIA Administration ORDERS Category Date Time Status VBG [Venous Blood Gas] Stat RT 07/22/20 13:46 Ordered Medical Decision Narrative: In summary this is a 30-year-old female with history of diabetes and multiple episod
--- NOTE | 2020-07-22 13:46 | XR_ITS ---
PROCEDURE: XR CHEST PORTABLE CLINICAL HISTORY: short of breath COMPARISON: CT AGCHEST CT angio chest from 02/10/2019 CR XR CHEST PORTABLE from 12/15/2019 CR XR CHEST PORTABLE from 01/28/2020 CR XR CHEST PORTABLE from 07/13/2020 FINDINGS: The cardiomediastinal silhouette and pulmonary vascularity are within normal limits. The lungs are clear without infiltrates, suspicious nodules, or pleural effusions. Catheter present by the right IJ approach with the tip in the region the SVC. IMPRESSION: No change with no acute finding Dictated by: Agustin Yu MD 07/22/2020 14:28 Agustin Yu MD in [facility] 07/22/2020 14:28
[2020-07-22 14:37] LABS: Basophils # 0.1 K/mm3 (0-0.2); Basophils % 0.4 % (0.1-2.0); Eosinophils # 0.2 K/mm3 (0.0-0.4); Eosinophils % 1.2 % (0.1-12.0); Hemoglobin 13.1 g/dL (12.2-16.2); Lymphocytes # 1.6 K/mm3 (0.7-4.5); Lymphocytes % 10.7 % (10-50); Mean Corpuscular HGB Conc 32.8 g/dL (31.8-35.4); Mean Corpuscular Hemoglobin 28.8 pg (27.0-31.2); Mean Corpuscular Volume 87.9 fl (81-99); Mean Platelet Volume 8.8 fl (7.4-10.4); Monocytes # 0.3 K/mm3 (0.1-1.0); Monocytes % 1.8 % (1.7-9.3); Neutrophils # 12.9 K/mm3 (1.8-7.8); Neutrophils % 85.9 % (37.0-80.0); Platelet Count 332 K/mm3 (142-424); Red Blood Count 4.55 M/mm3 (4.20-5.40); Red Cell Distribution Width 14.4 % (11.5-17.5)
[2020-07-22 14:38] LABS: Chloride 101 mmol/L (98-107); MANUAL DIFFERENTIAL MANUAL DIFFERENTIAL (MANUAL DIFF); Potassium 5.1 mmoL/L (3.5-5.1); Sodium 134 mmol/L (136-145)
[2020-07-22 14:41] LABS: Anion Gap 29.1 mEq/L (5-15); Blood Urea Nitrogen 12 mg/dl (7-17); Creatinine Clearance Estimated 185 mL/min (50-200); Estimated Glomerular Filt Rate 118 ml/min (>60); GFR (African American) 143 ML/MIN (>60)
[2020-07-22 14:42] LABS: Microscopic, Urine URINE MICROSCOPIC (MICROSCOPIC)
[2020-07-22 14:42] LABS: Calcium 8.9 mg/dl (8.4-10.2); Magnesium 1.8 mg/dl (1.6-2.3)
[2020-07-22 14:44] LABS: Appearance,Urine CLEAR (Clear); Bilirubin,Urine Negative (Negative); Blood, Urine Negative (Negative); Color,Urine YELLOW (Yellow); Glucose,Urine (UA) 3+ (Negative); Ketones,Urine 3+ (Negative); Leukocyte Esterase,Urine Negative (Negative); Nitrate,Urine Negative (Negative); PH,Urine 5.5 (5.0-8.5); Protein,Urine Negative (Negative); Specific Gravity, Urine 1.025 (1.005-1.030); Urobilinogen,Urine 0.2 EU/dl (0.2)
[2020-07-22 14:51] LABS: Lymphocytes % 14 % (10-50); Neutrophils % 86 % (42-76); Platelet Estimate Normal; RBC Morphology Normal; Total Cells Counted 100
[2020-07-22 14:54] LABS: WBC,Urine Occasional #/hpf (0-3)
[2020-07-22 14:55] LABS: Amorphous Sediment,Urine 1+ /lpf
[2020-07-22 14:57] LABS: Carbon Dioxide 9 mmol/L (22.0-30.0); Glucose 555 mg/dl (74-100)
[2020-07-22 15:06] LABS: Acetone, Serum (Rapid) Large (None Detect); HCG Qualitative, Serum Negative (Negative)
[2020-07-22 16:28] LABS: Coronavirus 19 IgG Antibody Negative (Negative); Coronavirus 19 IgM Antibody Negative (Negative)
[2020-07-22 16:32] LABS: VBG Base Excess -15.7 mmol/L (-2.4-2.3); VBG HCO3 11.7 mmol/L (23-30); VBG Oxygen Saturation 99.2 % (50-70); VBG PH 7.24 mmol/L (7.31-7.41); VBG PO2 200.5 mmol/L (28-40); VBG Total CO2 12.6 mmol/L (23-27)
--- NOTE | 2020-07-22 17:00 | PC.NURSE ---
Insulin drip turned down to 5units/hr.
[2020-07-22 17:05] LABS: Chloride 107 mmol/L (98-107); Sodium 138 mmol/L (136-145)
[2020-07-22 17:06] LABS: Potassium 4.9 mmoL/L (3.5-5.1)
[2020-07-22 17:08] LABS: Blood Urea Nitrogen 12 mg/dl (7-17); Creatinine Clearance Estimated 185 mL/min (50-200); Estimated Glomerular Filt Rate 118 ml/min (>60); GFR (African American) 143 ML/MIN (>60)
[2020-07-22 17:09] LABS: Anion Gap 25.9 mEq/L (5-15); Calcium 8.6 mg/dl (8.4-10.2); Glucose 302 mg/dl (74-100)
[2020-07-22 17:10] LABS: Carbon Dioxide 10 mmol/L (22.0-30.0)
[2020-07-22 17:19] VITALS: O2SAT 98
--- NOTE | 2020-07-22 17:19 | PC.NURSE ---
Report called to ABBI Sumner.
[2020-07-22 17:31] VITALS: BP 125/85; PULSE 80; RESP 20; TEMP 36.8; O2SAT 17
[2020-07-22 17:51] VITALS: BMI 32.6
[2020-07-22 17:52] VITALS: BP 166/102; PULSE 101; RESP 18; TEMP 37; O2SAT 99
--- NOTE | 2020-07-22 18:59 | HMH.HP ---
*Admission Date: 07/22/20 *Chief complaint: nausea, DKA *History of present illness: Homa is a 30-year-old female well-known to our office with poorly controlled diabetes, seizure disorder, obesity, and neuropathy. She presented to the ER today due to waking up with generalized malaise, nausea and vomiting, and feeling ill. She reports she was concerned for DKA after using ketone strips and having very high ketones this morning. Given her constellation of symptoms and lab finding at home, she came to the ER where she was noted to be in florid DKA with high anion gap metabolic acidosis. ER initiated work-up consisting of the following: CBC, CMP, VBG, ketones; urinalysis and chest x-ray to assess for infection. Patient given IV fluid bolus. From ER note: Initial laboratory results remarkable for hyperglycemia at 555. Acidosis with pH of 7.2. Gap of 29, bicarb of 9. Potassium is 5.1. Patient started on DKA protocol. Given 0.1 unit/kg/h insulin drip. 8.5 units/hr. Given 20 of KCl in the fluids. NPO. No obvious signs of infection on chest x-ray or urinalysis. I was consulted for admission. Patient admitted to stepdown unit under DKA protocol. On interview in the ER, patient was sitting up in bed, ill-appearing but alert and oriented. Answers questions appropriately. Stated she felt wonderful until this morning when she woke up. States she recently traveled to [place] with family. Had no difficulty during her travels. Has been compliant with her insulin regimen. Of note was recently admitted last week for similar occurrence of DKA to another hospital. Insulin regimen as follows: Insulin glargine 50 units at night, 30 units in the morning. Short acting insulin of 30 units with meals plus sliding scale. Denies missing any doses. Is adamant she has been compliant. [facility] History I have reviewed the patient's past medical history: Yes Medical History: Reports:: Arrhythmia, Deep Vein Thrombosis, Depression, Diabetes Mellitus Type 1, MRSA (leg), Palpitations, Pulmonary Embolism, Seizures Denies:: Cancer, Diabetes Mellitus Type 2, Internal Pacemaker *Have you ever received a pneumonia vaccine?: No *Have you received a flu vaccine this season?: No (doesn't remember) Other Medical History: Reports: Anemia, Other. Denies: Blood Transfusion Reaction Laterality Cases: Bilateral: Other Other Surgeries: Yes: Appendectomy, Cholecystectomy, Dilation and Curettage, Hysterectomy-Partial ( everything but left ovary ), Tubal Ligation, Other (ablation). No: Pacemaker Amputation: No Fractures: No - *Social History Last grade of school completed: High school graduate Smoking Status: Current every day smoker Tobacco Type: cigarettes # Packs/Day (cigarettes): 1 #Yrs smoked (if former smoker): 4 Alcohol Intake: current Alcohol Intake Frequency:: holidays/special occasions only Substance Use Type: former substance user *Occupational Status:: disabled Housing: apartment Household Members: significant other *Travel in the last 8 weeks: Inside the [place] - Psychiatric History Pschychiatric History:: Reports:: Depression Family Hx:: Cancer, Diabetes, Heart Attack, Hyperlipidemia, Hypertension, Kidney Disease, Alcoholism Review of Systems - Review of Systems Review of systems:: pertinent systems reviewed and negative unless documented below (14 point review of systems performed, pertinent positives and negatives as per HPI) - *Neurologic Denies dizziness, Denies headache(s), Denies fainting Meds Home Medications Medication Instructions Recorded Confirmed Type OXcarbazepine [Trileptal 300mg 1,200 mg PO BID 11/03/18 07/22/20 History tablet] Venlafaxine HCl [Effexor XR 75mg 75 mg PO DAILY 12/15/19 07/22/20 History capsule] Gabapentin [Gabapentin 300mg Cap] 300 mg PO TID 01/28/20 07/22/20 History Metformin HCl 250 mg PO HS 01/28/20 07/22/20 History raNITIdine HCl [Acid Edi Architect] 150 mg PO BID 01/28/20 07/22/20 History Levothyroxine
--- NOTE | 2020-07-22 19:21 | PC.NURSE ---
report given to mali
[2020-07-22 19:32] LABS: Acetone, Serum (Rapid) Large (None Detect)
[2020-07-22 20:00] VITALS: BP 146/99; PULSE 120; PULSE 99; RESP 17; TEMP 36.9; O2SAT 97; O2SAT 99
[2020-07-22 20:18] LABS: POC Glucose,Bedside 235 (70-110)
[2020-07-22 21:24] LABS: Chloride 106 mmol/L (98-107); Potassium 4.8 mmoL/L (3.5-5.1); Sodium 135 mmol/L (136-145)
[2020-07-22 21:27] LABS: Anion Gap 16.8 mEq/L (5-15); Blood Urea Nitrogen 10 mg/dl (7-17); Calcium 8.4 mg/dl (8.4-10.2); Carbon Dioxide 17 mmol/L (22.0-30.0); Creatinine Clearance Estimated 219 mL/min (50-200); Estimated Glomerular Filt Rate 146 ml/min (>60); GFR (African American) 177 ML/MIN (>60); Glucose 214 mg/dl (74-100)
[2020-07-22 22:00] VITALS: BP 154/93; PULSE 111; O2SAT 97
--- NOTE | 2020-07-22 22:09 | PC.NURSE ---
She is A&Ox4. She has received pain medication for BLE pain that she rates a 9/10 and states is radiating to her back. She continues on the insulin gtt. She ambulated independently to the BR. She reports that she is now having diarrhea. She has gotten a bedtime snack. TEDs are refused. Home meds are locked in med drawer. She is blind in her right eye. Ctoninues on RA.
[2020-07-22 23:51] LABS: POC Glucose,Bedside 306 (70-110)
[2020-07-23] VITALS (8 sets, daily range): BP systolic 110–143; BP diastolic 61–81; PULSE 82–105; RESP 16–19; TEMP 36.9–37.2; O2SAT 95–98; BMI 33.7
[2020-07-23 01:27] LABS: POC Glucose,Bedside 204 (70-110)
[2020-07-23 01:27] LABS: POC Glucose,Bedside 146 (70-110)
[2020-07-23 01:27] LABS: POC Glucose,Bedside 208 (70-110)
[2020-07-23 01:27] LABS: POC Glucose,Bedside 278 (70-110)
[2020-07-23 01:28] LABS: POC Glucose,Bedside 137 (70-110)
[2020-07-23 01:33] LABS: Anion Gap 9.9 mEq/L (5-15); Blood Urea Nitrogen 10 mg/dl (7-17); Calcium 8.1 mg/dl (8.4-10.2); Carbon Dioxide 20 mmol/L (22.0-30.0); Chloride 109 mmol/L (98-107); Creatinine Clearance Estimated 219 mL/min (50-200); Estimated Glomerular Filt Rate 146 ml/min (>60); GFR (African American) 177 ML/MIN (>60); Glucose 155 mg/dl (74-100); Potassium 4.9 mmoL/L (3.5-5.1); Sodium 134 mmol/L (136-145)
[2020-07-23 01:58] LABS: Acetone, Serum (Rapid) None Detected (None Detect)
[2020-07-23 06:27] LABS: Chloride 112 mmol/L (98-107); Potassium 4.2 mmoL/L (3.5-5.1); Sodium 137 mmol/L (136-145)
[2020-07-23 06:30] LABS: Anion Gap 10.2 mEq/L (5-15); Blood Urea Nitrogen 8 mg/dl (7-17); Carbon Dioxide 19 mmol/L (22.0-30.0); Creatinine Clearance Estimated 227 mL/min (50-200); Estimated Glomerular Filt Rate 146 ml/min (>60); GFR (African American) 177 ML/MIN (>60)
[2020-07-23 06:31] LABS: Calcium 7.7 mg/dl (8.4-10.2); Glucose 144 mg/dl (74-100)
--- NOTE | 2020-07-23 07:41 | HMH.ACPN2 ---
Internal Medicine - PN: Subj *Date: 07/23/20 *Time: 08:00 Interval history: Patient did well overnight. Continued on IV fluids and insulin through the night. Tolerating full liquid diet. Gap is closed this morning on labs. Given dose of long-acting insulin early this morning. On interview this morning, patient states she is tired but feeling better. Denies any nausea or vomiting overnight. Denies chest pain or shortness of breath. Had regular tray for breakfast with good tolerance. Exam Vital signs and Labs for Last 24 Hours: Temp Pulse Resp BP Pulse Ox 98.4 F 85 17 117/81 98 07/23/20 04:00 07/23/20 06:00 07/23/20 04:00 07/23/20 06:00 07/23/20 06:00 Laboratory Results - last 24 hr 07/22/20 13:46: VBG pH 7.24 L, VBG pCO2 28.0 L, VBG pO2 200.5 H, VBG HCO3 11.7 L, VBG Total CO2 12.6 L, VBG O2 Saturation 99.2 H, VBG Base Excess -15.7 L 07/22/20 14:30: WBC 15.0 H, RBC 4.55, Hgb 13.1, Hct 40.0, MCV 87.9, MCH 28.8, MCHC 32.8, RDW 14.4, Plt Count 332, MPV 8.8, Neut % (Auto) 85.9 H, Lymph % (Auto) 10.7, [place] % (Auto) 1.8, Eos % (Auto) 1.2, Baso % (Auto) 0.4, Neut # (Auto) 12.9 H, Lymph # (Auto) 1.6, [place] # (Auto) 0.3, Eos # (Auto) 0.2, Baso # (Auto) 0.1, Total Counted 100, Neutrophils % (Manual) 86 H, Lymphocytes % (Manual) 14, Platelet Estimate Normal, RBC Morphology Normal 07/22/20 14:30: Sodium 134 L, Potassium 5.1, Chloride 101, Carbon Dioxide 9 L*, Anion Gap 29.1 H, BUN 12, Creatinine 0.60, Estimated Creat Clear 185, Estimated GFR 118, Est GFR ( Amer) 143, Glucose 555 H*, Calcium 8.9, Magnesium 1.8, Acetone Level Large 07/22/20 14:30: Serum HCG, Qual Negative 07/22/20 14:30: SARS-CoV-2 IgG Ab (Rapid) Negative, SARS-CoV-2 IgM Ab (Rapid) Negative 07/22/20 14:35: Urine Color Yellow, Urine Appearance Clear, Urine pH 5.5, Ur Specific [place] 1.025, Urine Protein Negative, Urine Glucose (UA) 3+, Urine Ketones 3+, Urine Blood Negative, Urine Nitrate Negative, Urine Bilirubin Negative, Urine Urobilinogen 0.2, Ur Leukocyte Esterase Negative, Urine RBC None, Urine WBC Occasional, Ur Squamous Epith Cells 10-20, Amorphous Sediment 1+, Urine Bacteria None 07/22/20 16:40: Sodium 138, Potassium 4.9, Chloride 107, Carbon Dioxide 10 L D, Anion Gap 25.9 H, BUN 12, Creatinine 0.60, Estimated Creat Clear 185, Estimated GFR 118, Est GFR ( Amer) 143, Glucose 302 H D, Calcium 8.6, Acetone Level Large 07/22/20 16:43: POC Glucose 306 H* 07/22/20 18:36: POC Glucose 235 H 07/22/20 20:13: POC Glucose 146 H 07/22/20 21:04: Sodium 135 L, Potassium 4.8, Chloride 106, Carbon Dioxide 17 L D, Anion Gap 16.8 H, BUN 10, Creatinine 0.50 L, Estimated Creat Clear 219, Estimated GFR 146, Est GFR ( Amer) 177 D, Glucose 214 H D, Calcium 8.4 07/22/20 21:04: POC Glucose 204 H 07/22/20 22:03: POC Glucose 278 H 07/22/20 23:04: POC Glucose 208 H 07/23/20 00:16: POC Glucose 137 H 07/23/20 01:14: Sodium 134 L, Potassium 4.9, Chloride 109 H, Carbon Dioxide 20 L, Anion Gap 9.9, BUN 10, Creatinine 0.50 L, Estimated Creat Clear 219, Estimated GFR 146, Est GFR ( Amer) 177, Glucose 155 H D, Calcium 8.1 L 07/23/20 01:14: Acetone Level None detected 07/23/20 05:30: Sodium 137, Potassium 4.2, Chloride 112 H, Carbon Dioxide 19 L, Anion Gap 10.2, BUN 8, Creatinine 0.50 L, Estimated Creat Clear 227, Estimated GFR 146, Est GFR ( Amer) 177, Glucose 144 H, Calcium 7.7 L I & O for Last 24 hours: Intake & Output 07/20/20 07/21/20 07/22/20 07/23/20 23:59 23:59 23:59 23:59 Intake Total 2280 / 2280 Balance 2280 / 2280 Weight 83.574 kg 86.438 kg Narrative: - Constitutional NAD, supine in bed on interview, obese - *Routine HEENT Exam Head: Present: normocephalic Eye: Present: EOMI, PERRL (in left eye, right eye with cataract (chronic)) ENT: Present: mucous membranes moist - *Routine Neck Exam Present: supple. Absent: lymphadenopathy - *Routine Respiratory Exam Present: CTA bilaterally - *Routine Cardiovascular Exam Present: Normal
--- NOTE | 2020-07-23 07:55 | HMH.PHAVTE ---
[facility] Pharmacy VTE Monitoring - Patient Demographics Admission date: 07/22/20 Report Date: 07/23/20 Time: 07:55 Allergies/Adverse Reactions: Patient Allergies buspirone [BUSPIRONE] Allergy (Severe, Verified 12/15/19 05:31) Seizure nitrofurantoin [NITROFURANTOIN] Allergy (Severe, Verified 01/28/20 15:29) Seizure sulfamethoxazole [From BACTRIM] Allergy (Severe, Verified 01/28/20 15:29) Seizure trimethoprim [From BACTRIM] Allergy (Severe, Verified 01/28/20 15:29) Seizure topiramate [From TOPAMAX] Allergy (Unknown, Verified 01/28/20 15:29) adhesive tape Adverse Reaction (Intermediate, Verified 01/28/20 15:29) SKIN IRRITATION Height: 1.6 m Weight: 86.438 kg Patient Problems: Current Active Problems Diabetic ketoacidosis (Acute) Diabetes mellitus, insulin dependent (IDDM), uncontrolled (Chronic) - VTE Risk Labs: VTE Related Lab Results Hgb 13.1 g/dL (12.2-16.2) 07/22/20 14:30 Hct 40.0 % (37.0-47.0) 07/22/20 14:30 Plt Count 332 K/mm3 (142-424) 07/22/20 14:30 BUN 8 mg/dl (7-17) 07/23/20 05:30 Creatinine 0.50 mg/dl (0.52-1.04) L 07/23/20 05:30 Estimated Creat Clear 227 mL/min (50-200) 07/23/20 05:30 Was VTE Risk Assessment Performed: Yes VTE Score: 8 VTE Risk Level: Moderate Risk Clinical Trial Participant: No - Prophylaxis VTE Prophylaxis Ordered?: Yes Types of VTE Prophylaxis: TEDS Knee High
--- NOTE | 2020-07-23 07:56 | PC.NURSE ---
renetta alegria rn is providing care and documentation on patient with my assistance and supervision
--- NOTE | 2020-07-23 08:54 | PC.NURSE ---
Spoke with vanessa in registration, moved pt from stepdown to medr.
--- NOTE | 2020-07-23 09:23 | PC.NURSE ---
PER MD PATIENT CAN COME OUT OF STEPDOWN, CAN TAKE OF TELE MONITOR, AND CAN SALINE LOCK IV
--- NOTE | 2020-07-23 10:35 | PC.NURSE ---
CALLED AND SPOKE WITH MD ABOUT FSBS OF 422. HE STATED HE WOULD CHANGE SLIDING SCALE TO MEDIUM INTENSITY AND TO GIVE THAT NOW, THEN HE WOULD ALSO ADD THE 10 UNITS WITH MEALS.
[2020-07-23 10:43] LABS: POC Glucose,Bedside 422 (70-110)
--- NOTE | 2020-07-23 10:53 | PC.NURSE ---
ALSO PER PROTOCOL PATIENT WOULD HAVE A FSBS CHECK AND INSULIN AT 0300. STATED TO NOT DO THAT.
[2020-07-23 16:32] LABS: POC Glucose,Bedside 282 (70-110)
[2020-07-23 18:38] LABS: Chloride 103 mmol/L (98-107)
[2020-07-23 18:39] LABS: Potassium 3.9 mmoL/L (3.5-5.1); Sodium 134 mmol/L (136-145)
[2020-07-23 18:41] LABS: Alanine Aminotransferase 36 U/L (12-78); Alkaline Phosphatase 118 U/L (38-126); Anion Gap 12.9 mEq/L (5-15); Aspartate Amino Transferase 39 U/L (14-36); Bilirubin,Total 0.2 mg/dl (0.2-1.3); Blood Urea Nitrogen 9 mg/dl (7-17); Carbon Dioxide 22 mmol/L (22.0-30.0); Creatinine Clearance Estimated 162 mL/min (50-200); Estimated Glomerular Filt Rate 99 ml/min (>60); GFR (African American) 120 ML/MIN (>60)
[2020-07-23 18:42] LABS: Albumin Level 3.3 g/dl (3.5-5.0); Albumin/Globulin Ratio 1.1 (1.1-1.8); Calcium 8.3 mg/dl (8.4-10.2); Globulin 3.1 g/dL (1.3-3.2); Glucose 261 mg/dl (74-100); Total Protein,Serum 6.4 g/dl (6.3-8.2)
--- NOTE | 2020-07-23 20:01 | PC.NURSE ---
THIS RN ASSUMED CARE AT 10:40 THIS AM. PATIENT A&O X4, LUNGS CLEAR, PULSES EQUAL. PATIENT FSBS AT 10:40 WAS 422. MD NOTIFIED, JR MONTGOMERY RN, RECEIVED NEW ORDERS. PATIENT HAS HAD 2 MEALS AT LUNCH AND DINNER. PATIENT TOLERATED MEALS. NO CONCERNS AT THIS TIME.
--- NOTE | 2020-07-23 22:15 | PC.NURSE ---
Pt reports having three loose bm within 30 minutes, abdomen tender with nausea noted per pt. Per protocol, obtained stool specimen, sent to lab for culture.
[2020-07-23 23:02] LABS: POC Glucose,Bedside 300 (70-110)
[2020-07-24 01:50] LABS: POC Glucose,Bedside 155 (70-110)
[2020-07-24 01:50] LABS: POC Glucose,Bedside 152 (70-110)
[2020-07-24 01:50] LABS: POC Glucose,Bedside 153 (70-110)
[2020-07-24 01:50] LABS: POC Glucose,Bedside 152 (70-110)
[2020-07-24 01:50] LABS: POC Glucose,Bedside 146 (70-110)
--- NOTE | 2020-07-24 03:18 | PC.NURSE ---
Pt reports having three loose bm within 30 minutes, abdomen tender with nausea noted per pt. Will obtain next stool and send for culture.
[2020-07-24 04:00] VITALS: BP 113/66; PULSE 79; RESP 16; TEMP 37.1; O2SAT 99
--- NOTE | 2020-07-24 04:07 | PC.NURSE ---
Pt is alert and oriented x4. Right pupil unreactive, pt baseline. Left pupil perrl. Hand re recording mixer bilaterally equal in strength. No edema noted. Bilateral breath sounds noted clear t/o upon auscultation. Tolerated ra well with no c/o soa. RR noted even and unlabored. Pt tolerated diet well, but did c/o nausea and abdominal upset t/o shift with sudden onset of diarrhea x3. Stool specimen needs to be collected, pt aware but unable to provide specimen at this time. Administered phenergan per mar x1 per pt request. Upon reassessment pt noted resting with eyes closed with no further bm or c/o pain/nausea. Pt's IV in her left hand infiltrated and became very painful. d/c IV. Port to right upper chest remains c/d/i. Amb well independently in room w/o assistance. VSS. Call light within reach. Remains safe. Will continue to monitor.
[2020-07-24 05:00] VITALS: BMI 34.4
[2020-07-24 06:00] LABS: POC Glucose,Bedside 234 (70-110)
[2020-07-24 07:39] VITALS: BP 126/76; PULSE 79; RESP 20; TEMP 36.9; O2SAT 99
[2020-07-24 08:08] LABS: Basophils % 0.7 % (0.1-2.0); Eosinophils # 0.3 K/mm3 (0.0-0.4); Eosinophils % 4.6 % (0.1-12.0); Hematocrit 29.6 % (37.0-47.0); Lymphocytes # 1.8 K/mm3 (0.7-4.5); Lymphocytes % 33.5 % (10-50); Mean Corpuscular HGB Conc 33.8 g/dL (31.8-35.4); Mean Corpuscular Hemoglobin 28.9 pg (27.0-31.2); Mean Corpuscular Volume 85.5 fl (81-99); Mean Platelet Volume 8.5 fl (7.4-10.4); Monocytes # 0.3 K/mm3 (0.1-1.0); Monocytes % 4.5 % (1.7-9.3); Neutrophils # 3.1 K/mm3 (1.8-7.8); Neutrophils % 56.7 % (37.0-80.0); Platelet Count 225 K/mm3 (142-424); Red Blood Count 3.46 M/mm3 (4.20-5.40); Red Cell Distribution Width 14.4 % (11.5-17.5); White Blood Count 5.4 K/mm3 (4.8-10.8)
--- NOTE | 2020-07-24 08:12 | HMH.DCSUM ---
General - General Admission date:: 07/22/20 Discharge date: 07/24/20 HPI HPI: Homa is a 30-year-old female well-known to our office with poorly controlled diabetes, seizure disorder, obesity, and neuropathy. She presented to the ER today due to waking up with generalized malaise, nausea and vomiting, and feeling ill. She reports she was concerned for DKA after using ketone strips and having very high ketones this morning. Given her constellation of symptoms and lab finding at home, she came to the ER where she was noted to be in florid DKA with high anion gap metabolic acidosis. ER initiated work-up consisting of the following: CBC, CMP, VBG, ketones; urinalysis and chest x-ray to assess for infection. Patient given IV fluid bolus. From ER note: Initial laboratory results remarkable for hyperglycemia at 555. Acidosis with pH of 7.2. Gap of 29, bicarb of 9. Potassium is 5.1. Patient started on DKA protocol. Given 0.1 unit/kg/h insulin drip. 8.5 units/hr. Given 20 of KCl in the fluids. NPO. No obvious signs of infection on chest x-ray or urinalysis. I was consulted for admission. Patient admitted to stepdown unit under DKA protocol. On interview in the ER, patient was sitting up in bed, ill-appearing but alert and oriented. Answers questions appropriately. Stated she felt wonderful until this morning when she woke up. States she recently traveled to [place] with family. Had no difficulty during her travels. Has been compliant with her insulin regimen. Of note was recently admitted last week for similar occurrence of DKA to another hospital. Insulin regimen as follows: Insulin glargine 50 units at night, 30 units in the morning. Short acting insulin of 30 units with meals plus sliding scale. Denies missing any doses. Is adamant she has been compliant. Hospital Course Hospital Course: Patient was admitted. Treated with IV fluids and intravenous insulin and her DKA resolved. She continued to require IV fluids because of nausea and vomiting, and was continued to be observed in the hospital. Serum acetone resolved, and laboratory studies normalized. This morning she was feeling better, kept her breakfast down. In the hospital, as always, she usually requires less insulin and was stabilized on a lower dose of Lantus than her home dose. This morning her exam is normalized, and she will be discharged home. I will bump up her home Lantus dose very slightly because of persistent hyperglycemia. This will be refilled at the pharmacy. We will go up by 10 units at each administration of Lantus twice daily. Her sliding scale dose will remain the same. We will arrange appointments for Wednesday and then Wednesday in our office for close follow-up to evaluate her very unstable glucose situation. Objective Vital signs: Temp Pulse Resp BP Pulse Ox 98.4 F 79 20 126/76 99 07/24/20 07:39 07/24/20 07:39 07/24/20 07:39 07/24/20 07:39 07/24/20 07:39 no acute distress - *Routine HEENT Exam Head: Present: normocephalic, tenderness of temporal artery ENT: Present: mucous membranes moist Comments: Previously noted eye deficit - *Routine Neck Exam Present: supple - *Routine Respiratory Exam Present: CTA bilaterally - *Routine Cardiovascular Exam Present: RRR - *Routine Abdominal Exam Present: soft, normoactive bowel sounds. Absent: tenderness - *Routine Extremities Exam Absent: cyanosis, clubbing, edema - *Routine Skin Exam Present: warm. Absent: rash - Detailed Eye Exam Eyelids: Bilateral normal inspection Results Labs on day of discharge: Labs from last 24 hours 07/24/20 07/24/20 07/23/20 08:00 05:28 22:16 WBC 5.4 D RBC 3.46 L Hgb 10.0 L Hct 29.6 L MCV 85.5 MCH 28.9 MCHC 33.8 RDW 14.4 Plt Count 225 D MPV 8.5 Neut % (Auto) 56.7 Lymph % (Auto) 33.5 [place] % (Auto) 4.5 Eos % (Auto) 4.6 Baso % (Auto) 0.7 Neut # (Auto)
[2020-07-24 08:14] LABS: Chloride 104 mmol/L (98-107); Potassium 3.6 mmoL/L (3.5-5.1); Sodium 136 mmol/L (136-145)
[2020-07-24 08:16] LABS: Blood Urea Nitrogen 10 mg/dl (7-17); Creatinine Clearance Estimated 231 mL/min (50-200); Estimated Glomerular Filt Rate 146 ml/min (>60); GFR (African American) 177 ML/MIN (>60)
[2020-07-24 08:17] LABS: Alanine Aminotransferase 21 U/L (12-78); Albumin Level 3.1 g/dl (3.5-5.0); Alkaline Phosphatase 106 U/L (38-126); Anion Gap 8.6 mEq/L (5-15); Aspartate Amino Transferase 25 U/L (14-36); Bilirubin,Total 0.2 mg/dl (0.2-1.3); Calcium 8.5 mg/dl (8.4-10.2); Carbon Dioxide 27 mmol/L (22.0-30.0); Glucose 157 mg/dl (74-100); Total Protein,Serum 6.1 g/dl (6.3-8.2)
[2020-07-24 08:18] LABS: Magnesium 1.5 mg/dl (1.6-2.3)
== END 2020-07-24 09:12 | disposition home or self-care (01) | DRG 638 ==
LOC: ER 15:27 → 2ND 17:48
PROVIDERS: Admitting Provider Internal Medicine Adolescent Medicine; Emergency Provider Emergency Medicine; PCP Internal Medicine Adolescent Medicine; Visit Provider Internal Medicine Adolescent Medicine
DX: E11.10 Type 2 diabetes mellitus with ketoacidosis without coma (principal); R65.10 Systemic inflammatory response syndrome (SIRS) of non-infectious origin without acute organ dysfunction; E87.1 Hypo-osmolality and hyponatremia; E03.9 Hypothyroidism, unspecified; G40.909 Epilepsy, unspecified, not intractable, without status epilepticus; Z88.1 Allergy status to other antibiotic agents; Z88.8 Allergy status to other drugs, medicaments and biological substances; Z79.4 Long term (current) use of insulin; Z79.899 Other long term (current) drug therapy; Z72.0 Tobacco use; E11.42 Type 2 diabetes mellitus with diabetic polyneuropathy; E11.65 Type 2 diabetes mellitus with hyperglycemia
CPT/HCPCS: 71045; 80048; 80053; 81001; 82009; 82803; 82962; 83735; 84703; 85007; 85025; 86328; 96365; 96367; 99282; J1642

== ENCOUNTER → 2020-08-02 11:46 | Outpatient (CLI) | payer OTHER, SELFPAY ==
--- NOTE | 2020-08-02 11:51 | CA_ITS ---
APPROVED REPORT EXAM: Comprehensive 2D, Doppler, and color-flow Echocardiogram Go Cart Mechanic: Soraida Grimes CRT Ht: 5 ft 3 in Wt: 190lbs BSA: 1.89 BP: 117/81 mmHg Indications: CP SOA DM 2D Dimensions LVOT 1.91 cm (M/F) 1.5-2.5 M-Mode Dimensions RVDd 2.72 cm (0.9-2.6) LVDd 4.73 cm (3.5-5.7) LVDs 3.47 cm (3.5-5.7) IVSd 0.88 cm (0.6-1.1) PWd 0.56 cm (0.6-1.1) EF (Teich) 52.10% FS 26.60% EDV (Teich) 103.90 mL ESV (Teich) 49.80 mL LV Diastology E/A Ratio 1.23 Mitral Valve MV A Velocity 65.00 (40-130 cm/s) Left Ventricle Left atrium is normal size, left ventricle is normal size, there is no concentric left ventricular hypertrophy, visually estimated ejection fraction 55% with no regional wall motion abnormality, diastolic parameters are within normal range. Right Ventricle Right atrium and right ventricular normal size and contractility. Aortic Valve Aortic valve is grossly normal, there is no aortic stenosis or aortic insufficiency. Mitral Valve Mitral valve is grossly normal, there is trace mitral regurgitation. Tricuspid Valve Tricuspid valve grossly normal, there is trace tricuspid regurgitation, tricuspid regurgitation jet velocity is inadequate for calculation of the right ventricular systolic pressure. Pulmonic Valve Pulmonic valve is poorly visualized. Great Vessels Aortic root is normal size. Pericardium No significant pericardial effusion noted. Conclusion 1. Normal left ventricular size, preserved left ventricular systolic function, visually estimated ejection fraction 55% with no regional wall motion abnormality Diastolic parameters are within normal range. 2. Trace mitral and tricuspid regurgitation. 3. No significant pericardial effusion noted. Electronically signed by : Bob Rose, 08/02/2020 13:08:48
== END ==
PROVIDERS: PCP Internal Medicine Adolescent Medicine; Visit Provider Internal Medicine Adolescent Medicine
DX: R06.00 Dyspnea, unspecified (principal)
CPT/HCPCS: 93306

== ENCOUNTER 2020-08-09 10:32 | Observation (INO) | payer OTHER, SELFPAY ==
[2020-08-09] VITALS (13 sets, daily range): BP systolic 100–170; BP diastolic 53–107; PULSE 95–115; RESP 16–18; TEMP 36.6–36.9; O2SAT 98–100; BMI 28.3; BMI 32.6
--- NOTE | 2020-08-09 10:40 | XR_ITS ---
PROCEDURE: XR CHEST PORTABLE CLINICAL HISTORY: cough COMPARISON: CT AGCHEST CT angio chest from 02/10/2019 CR XR CHEST PORTABLE from 01/28/2020 CR XR CHEST PORTABLE from 07/13/2020 CR XR CHEST PORTABLE from 07/22/2020 FINDINGS: The cardiomediastinal silhouette and pulmonary vascularity are within normal limits. MediPort catheter is present from the right IJ approach with tip in the region the SVC. Lungs are clear. Small well-circumscribed lucency is present in the right humeral head unchanged consistent with a cortical defect. IMPRESSION: No acute findings. Dictated by: Agustin Yu MD 08/09/2020 11:18 Agustin Yu MD in OV 08/09/2020 11:18
[2020-08-09 10:45] LABS: Microscopic, Urine URINE MICROSCOPIC (MICROSCOPIC)
[2020-08-09 10:46] LABS: Appearance,Urine CLEAR (Clear); Bilirubin,Urine Negative (Negative); Blood, Urine Negative (Negative); Color,Urine YELLOW (Yellow); Glucose,Urine (UA) 3+ (Negative); Ketones,Urine 3+ (Negative); Leukocyte Esterase,Urine Negative (Negative); Nitrate,Urine Negative (Negative); Protein,Urine Negative (Negative); Specific Gravity, Urine 1.025 (1.005-1.030); Urobilinogen,Urine 0.2 EU/dl (0.2)
[2020-08-09 10:52] LABS: Amorphous Sediment,Urine Trace /lpf; Squamous Epithelial Cell,Urine Occasional #/hpf (0-5)
[2020-08-09 10:57] LABS: Basophils # 0.1 K/mm3 (0-0.2); Basophils % 0.6 % (0.1-2.0); Eosinophils # 0.1 K/mm3 (0.0-0.4); Eosinophils % 0.8 % (0.1-12.0); Hematocrit 38.7 % (37.0-47.0); Hemoglobin 12.9 g/dL (12.2-16.2); Lymphocytes # 1.4 K/mm3 (0.7-4.5); Lymphocytes % 11.4 % (10-50); Mean Corpuscular HGB Conc 33.3 g/dL (31.8-35.4); Mean Corpuscular Hemoglobin 28.8 pg (27.0-31.2); Mean Corpuscular Volume 86.4 fl (81-99); Mean Platelet Volume 8.8 fl (7.4-10.4); Monocytes # 0.3 K/mm3 (0.1-1.0); Monocytes % 2.3 % (1.7-9.3); Neutrophils # 10.3 K/mm3 (1.8-7.8); Neutrophils % 84.7 % (37.0-80.0); Platelet Count 367 K/mm3 (142-424); Red Blood Count 4.49 M/mm3 (4.20-5.40); Red Cell Distribution Width 13.5 % (11.5-17.5); White Blood Count 12.1 K/mm3 (4.8-10.8)
[2020-08-09 11:00] LABS: Chloride 102 mmol/L (98-107); Potassium 4.8 mmoL/L (3.5-5.1); Sodium 138 mmol/L (136-145)
[2020-08-09 11:03] LABS: Alanine Aminotransferase 24 U/L (12-78); Albumin Level 4.4 g/dl (3.5-5.0); Albumin/Globulin Ratio 1.2 (1.1-1.8); Alkaline Phosphatase 294 U/L (38-126); Anion Gap 29.8 mEq/L (5-15); Aspartate Amino Transferase 38 U/L (14-36); Bilirubin,Total 0.6 mg/dl (0.2-1.3); Blood Urea Nitrogen 18 mg/dl (7-17); Carbon Dioxide 11 mmol/L (22.0-30.0); Creatinine Clearance Estimated 163 mL/min (50-200); Estimated Glomerular Filt Rate 118 ml/min (>60); GFR (African American) 143 ML/MIN (>60); Globulin 3.6 g/dL (1.3-3.2); Lipase 127 U/L (23-300)
[2020-08-09 11:04] LABS: Calcium 9.6 mg/dl (8.4-10.2)
[2020-08-09 11:11] LABS: VBG Base Excess -13.9 mmol/L (-2.4-2.3); VBG HCO3 13.1 mmol/L (23-30); VBG Oxygen Saturation 99.3 % (50-70); VBG PCO2 29.7 mmol/L (35-51); VBG PH 7.26 mmol/L (7.31-7.41); VBG PO2 205.8 mmol/L (28-40)
[2020-08-09 11:12] LABS: Glucose 607 mg/dl (74-100)
[2020-08-09 11:14] LABS: Acetone, Serum (Rapid) Large (None Detect)
--- NOTE | 2020-08-09 11:33 | PC.NURSE ---
Pt up to restroom
--- NOTE | 2020-08-09 11:57 | PC.NURSE ---
CHRISTINE BRUNNER speaking with Dr Ayala at this time.
--- NOTE | 2020-08-09 12:01 | HMH.EDGENADL ---
ED Disposition Clinical Impression: DKA (diabetic ketoacidoses) Qualifiers: Diabetes mellitus type: type 1 Diabetes mellitus complication detail: without coma Qualified Code(s): E10.10 - Type 1 diabetes mellitus with ketoacidosis without coma Disposition: Admitted As Inpatient Condition on Discharge: Critical Instructions: DI for Nausea -- Adult, DI for Nausea -- Child, DI for Diarrhea and Traveler's Diarrhea -- Adult, DI for Diarrhea and Traveler's Diarrhea -- Child Referrals: Srini Ayala MD [Primary Care Provider] - - Critical Care Critical Care Time: Yes Attestation: On 08/09/20, the high probability of a clinically significant, sudden or life threatening deterioration of the following system(s) required my full and direct attention, intervention and personal management. The time I documented below is in addition to time spent performing reported procedures but includes the following listed in this critical care notation. 45 min CC time, including chart review, result review, hemodynamic, metabolic and WEB DATABASE DEVELOPER management. Coordination of care Total Critical Care Time: 45 Vital system(s) involved:: Circulatory Failure, Central Nervous System, Metabolic Failure My critical care processes included: Assessment & monitoring of V/S, Initial and Re-exams, Data Review/Interpretation, Coordinating Care Medical Decision Making - Medical Records Medical records reviewed: Yes: I reviewed the patient's medical records. - Jamari Inquiry Pt receiving controlled substance: No Vital Signs: 08/09/20 10:34 08/09/20 11:34 Temperature 98 F Temperature Source Oral Pulse Rate [Radial] 112 H 106 H Respiratory Rate 18 Blood Pressure [Right Arm] 165/90 H 134/81 Blood Pressure Mean [Right Arm] 115 98 Blood Pressure Source [Right Arm] Automatic Cuff Blood Pressure Position [Right Arm] Sitting Sitting 02 Sat by Pulse Oximetry 98 100 Oxygen Delivery Method Room Air Room Air - Lab Data Lab Results 08/09/20 10:39: Urine Color Yellow, Urine Appearance Clear, Urine pH 5.0, Ur Specific [place] 1.025, Urine Protein Negative, Urine Glucose (UA) 3+, Urine Ketones 3+, Urine Blood Negative, Urine Nitrate Negative, Urine Bilirubin Negative, Urine Urobilinogen 0.2, Ur Leukocyte Esterase Negative, Urine RBC None, Urine WBC None, Ur Squamous Epith Cells Occasional, Amorphous Sediment Trace, Urine Bacteria None 08/09/20 10:40: VBG pH 7.26 L, VBG pCO2 29.7 L, VBG pO2 205.8 H, VBG HCO3 13.1 L, VBG Total CO2 14.0 L, VBG O2 Saturation 99.3 H, VBG Base Excess -13.9 L 08/09/20 10:50: WBC 12.1 H, RBC 4.49, Hgb 12.9, Hct 38.7, MCV 86.4, MCH 28.8, MCHC 33.3, RDW 13.5, Plt Count 367, MPV 8.8, Neut % (Auto) 84.7 H, Lymph % (Auto) 11.4, [place] % (Auto) 2.3, Eos % (Auto) 0.8, Baso % (Auto) 0.6, Neut # (Auto) 10.3 H, Lymph # (Auto) 1.4, [place] # (Auto) 0.3, Eos # (Auto) 0.1, Baso # (Auto) 0.1 08/09/20 10:50: Sodium 138, Potassium 4.8, Chloride 102, Carbon Dioxide 11 L, Anion Gap 29.8 H, BUN 18 H, Creatinine 0.60, Estimated Creat Clear 163, Estimated GFR 118, Est GFR ( Amer) 143, Glucose 607 H*, Calcium 9.6, Total Bilirubin 0.6, AST 38 H, ALT 24, Alkaline Phosphatase 294 H, Total Protein 8.0 D, Albumin 4.4, Globulin 3.6 H, Albumin/Globulin Ratio 1.2 08/09/20 10:50: Acetone Level Large 08/09/20 10:50: Lipase 127 Result diagrams: 08/09/20 10:50 08/09/20 10:50 Orders (Tests/Meds): ED MEDICATIONS Generic Name Dose Route Start Last Admin Trade Name Freq PRN Reason Stop Dose Admin Insulin Human Regular 100 unit 101 mls @ 7.559 mls/hr 08/09/20 12:00 / Sodium Chloride IV 09/08/20 11:59 .[id number] DALIA Protocol 0.1 UNITS/KG/HR Sodium Chloride 1,000 mls @ 150 mls/hr 08/09/20 12:00 Sod Chlor 0.9% 1000ml Bag IV 09/08/20 11:59 .[id number] ON LICENSE OF [facility] Discontinued Medications Generic Name Dose Route Start Last Admin Trade Name Freq PRN Reason Stop Dose Admin Sodium Chloride 1,000 mls @ 999 mls/hr 08/09/20 10:45 08/09/20 10:54 Sod Chl
[2020-08-09 12:23] LABS: Hemoglobin A1C 11.2 % (4.0-6.0)
[2020-08-09 12:38] LABS: Coronavirus 19 IgG Antibody Negative (Negative); Coronavirus 19 IgM Antibody Negative (Negative)
--- NOTE | 2020-08-09 12:55 | PC.NURSE ---
attempted to call report, spoke with charge nurse states waiting for telemetry nurse
--- NOTE | 2020-08-09 13:31 | PC.NURSE ---
attempted to call report that nurse is putting a catheter in and call after that
[2020-08-09 13:40] LABS: POC Glucose,Bedside 373 (70-110)
--- NOTE | 2020-08-09 13:52 | PC.NURSE ---
report called to bartolo lopez
--- NOTE | 2020-08-09 14:12 | PC.NURSE ---
pt on unit at this time. transported by ER staff
--- NOTE | 2020-08-09 14:45 | HMH.PHAVTE ---
[facility] Pharmacy VTE Monitoring - Patient Demographics Admission date: 08/09/20 Report Date: 08/09/20 Time: 14:45 Allergies/Adverse Reactions: Patient Allergies buspirone [BUSPIRONE] Allergy (Severe, Verified 12/15/19 05:31) Seizure nitrofurantoin [NITROFURANTOIN] Allergy (Severe, Verified 01/28/20 15:29) Seizure sulfamethoxazole [From BACTRIM] Allergy (Severe, Verified 01/28/20 15:29) Seizure trimethoprim [From BACTRIM] Allergy (Severe, Verified 01/28/20 15:29) Seizure topiramate [From TOPAMAX] Allergy (Unknown, Verified 01/28/20 15:29) adhesive tape Adverse Reaction (Intermediate, Verified 01/28/20 15:29) SKIN IRRITATION Height: 1.6 m Weight: 83.574 kg Patient Problems: Current Active Problems DKA (diabetic ketoacidoses) (Acute) - VTE Risk Labs: VTE Related Lab Results Hgb 12.9 g/dL (12.2-16.2) 08/09/20 10:50 Hct 38.7 % (37.0-47.0) 08/09/20 10:50 Plt Count 367 K/mm3 (142-424) 08/09/20 10:50 BUN 18 mg/dl (7-17) H 08/09/20 10:50 Creatinine 0.60 mg/dl (0.52-1.04) 08/09/20 10:50 Estimated Creat Clear 163 mL/min (50-200) 08/09/20 10:50 Clinical Trial Participant: No - Prophylaxis VTE Prophylaxis Ordered?: Yes Types of VTE Prophylaxis: TEDS Knee High
[2020-08-09 16:31] LABS: POC Glucose,Bedside 135 (70-110)
[2020-08-09 17:34] LABS: Chloride 110 mmol/L (98-107); Potassium 4.1 mmoL/L (3.5-5.1); Sodium 142 mmol/L (136-145)
[2020-08-09 17:37] LABS: Blood Urea Nitrogen 14 mg/dl (7-17); Creatinine Clearance Estimated 219 mL/min (50-200); Estimated Glomerular Filt Rate 146 ml/min (>60); GFR (African American) 177 ML/MIN (>60)
[2020-08-09 17:38] LABS: Anion Gap 18.1 mEq/L (5-15); Calcium 8.9 mg/dl (8.4-10.2); Carbon Dioxide 18 mmol/L (22.0-30.0); Glucose 107 mg/dl (74-100)
[2020-08-09 18:59] LABS: POC Glucose,Bedside 131 (70-110)
[2020-08-09 18:59] LABS: POC Glucose,Bedside 91 (70-110)
--- NOTE | 2020-08-09 19:08 | PC.NURSE ---
report given to mali
--- NOTE | 2020-08-09 19:57 | PC.NURSE ---
Pt tolerating insulin gtt well, Gtt titrated per DKA protocol. Changes made to IVF per protocol w/ MD approval to add 20 meq KCL to fluids. Pt is A&O x 3. Remains on room air w/ no s/s/ of resp distress. NSR - Sinus tach on tely. Upon admission reported pain in abdomen w/ nausea for a few days. Last BM was yesterday which she states has been diarrhea. No BM since arriving to hospital today. Pt is weak and requires standby assistance to bathroom, tolerating activity well. Diet advanced to bland per MD orders, pt has had a ham sandwich and soup w/ no c/o nausea. Refuses TEDS. Call tyrno w/in reach. Report given to oncoming nurse S Call,RN. Insulin GTT: 1600 - Insulin gtt decreased to 6 units/hr; fluids changed to D5NS @ 75 mls/hr 1700 - Insulin gtt decreased to 3 units/hr; fluids changed to D5NS @ 125 mls/hr 1815 - IVF changed to D5NS + 20 meq KCL @ 125 mls/hr.
--- NOTE | 2020-08-09 20:42 | HMH.HP ---
*Admission Date: 08/09/20 *Chief complaint: Nausea, DKA *History of present illness: Homa is a 30-year-old female well-known to our office with poorly controlled diabetes, seizure disorder, obesity, and neuropathy. She presented to the ER today due to waking up with generalized malaise, nausea and vomiting, and feeling ill. Given her constellation of symptoms she came to the ER where she was noted to be in florid DKA with high anion gap metabolic acidosis. ER initiated work-up consisting of the following: CBC, CMP, VBG, ketones; urinalysis and chest x-ray to assess for infection. Patient given IV fluid bolus. Labs concerning for glucose greater than 600, anion gap of 29, and pH less than 7.3. Admitted for DKA and initiated on DKA protocol. On assessment after arriving to the floor, she states she was trying to adhere to the new regimen that was initiated after last discharge. She felt bad yesterday and therefore missed her outpatient appointment. Continue to feel bad this morning and came to the ER because she was vomiting. She was very tearful and disappointed in herself or not being able to do a better job with her management as this is her third admission in approximately a month. Of note was recently admitted 2 weeks ago for similar occurrence of DKA to our hospital. Insulin regimen as follows: Insulin glargine 50 units at night, 30 units in the morning. Short acting insulin 15 units with sliding scale insulin. This was half her previous dose. States she is tried to be compliant but the changes made it difficult. Admitted to medicine for further management. Patient's blood sugar better controlled by the time I assessed her on the floor. Requesting something to eat. [facility] History I have reviewed the patient's past medical history: Yes Medical History: Reports:: Arrhythmia, Deep Vein Thrombosis, Depression, Diabetes Mellitus Type 1, MRSA, Palpitations, Pulmonary Embolism, Seizures Denies:: Cancer, Diabetes Mellitus Type 2, Internal Pacemaker *Have you ever received a pneumonia vaccine?: Yes *Have you received a flu vaccine this season?: No Other Medical History: Reports: Anemia, Other. Denies: Blood Transfusion Reaction Laterality Cases: Bilateral: Other Other Surgeries: Yes: Appendectomy, Cholecystectomy, Dilation and Curettage, Hysterectomy-Partial ( everything but left ovary ), Tubal Ligation, Other (ablation). No: Pacemaker Amputation: No Fractures: No - *Social History Last grade of school completed: High school graduate Smoking Status: Never smoker Tobacco Type: cigarettes # Packs/Day (cigarettes): 1 #Yrs smoked (if former smoker): 4 Alcohol Intake: never Alcohol Intake Frequency:: holidays/special occasions only Substance Use Type: former substance user *Occupational Status:: disabled Housing: apartment Household Members: friend(s) *Travel in the last 8 weeks: None - Psychiatric History Pschychiatric History:: Reports:: Depression Family Hx:: Coronary Artery Disease, Diabetes, Heart Attack, Hyperlipidemia, Stroke Review of Systems - Review of Systems Review of systems:: pertinent systems reviewed and negative unless documented below (14 point review of systems performed, pertinent positives and negatives as per HPI) - *Neurologic Denies headache(s) Meds Home Medications Medication Instructions Recorded Confirmed Type OXcarbazepine [Trileptal 300mg 1,200 mg PO BID 11/03/18 08/09/20 History tablet] Venlafaxine HCl [Effexor XR 75mg 75 mg PO DAILY 12/15/19 08/09/20 History capsule] Gabapentin [Gabapentin 300mg Cap] 300 mg PO TID 01/28/20 08/09/20 History Metformin HCl 250 mg PO HS 01/28/20 08/09/20 History raNITIdine HCl [Acid Coffee Attendant] 150 mg PO BID 01/28/20 08/09/20 History Levothyroxine Sodium 25 mcg PO DAILY 01/29/20 08/09/20 History [Levothyroxine 25mcg (0.025mg) Tab] levETIRAcetam [Levetiracetam] 2,500 mg PO BID 01/29/20 08/09/20 History Insulin Glargine,Hum.rec.anlog 50 unit SQ
[2020-08-09 20:47] LABS: Anion Gap 19.7 mEq/L (5-15); Blood Urea Nitrogen 12 mg/dl (7-17); Calcium 8.3 mg/dl (8.4-10.2); Carbon Dioxide 19 mmol/L (22.0-30.0); Chloride 104 mmol/L (98-107); Creatinine Clearance Estimated 219 mL/min (50-200); Estimated Glomerular Filt Rate 146 ml/min (>60); GFR (African American) 177 ML/MIN (>60); Glucose 358 mg/dl (74-100); Potassium 4.7 mmoL/L (3.5-5.1); Sodium 138 mmol/L (136-145)
[2020-08-09 21:07] LABS: POC Glucose,Bedside 77 (70-110)
--- NOTE | 2020-08-09 23:07 | PC.NURSE ---
Was notified by Dr. Ayala on the phone regarding her glucose and the medication changes he made. He also discussed ordered labs that he had changed. She is NSR and sinus tach on the telemetry at times. She is A&Ox4. Blind in her right eye. She reports generalized pain. She also reports weakness and was given a BSC. Denies SOA. Continues on RA. She reports her last BM was on 08/08. She continues with q 1 hour gingersticks at this time. Her port was accessed per her request.
[2020-08-10] VITALS: BP 99/59; PULSE 100; O2SAT 100
[2020-08-10 00:16] LABS: POC Glucose,Bedside 168 (70-110)
[2020-08-10 01:14] LABS: Anion Gap 10.8 mEq/L (5-15); Blood Urea Nitrogen 10 mg/dl (7-17); Calcium 8.2 mg/dl (8.4-10.2); Carbon Dioxide 23 mmol/L (22.0-30.0); Chloride 107 mmol/L (98-107); Creatinine Clearance Estimated 274 mL/min (50-200); Estimated Glomerular Filt Rate 189 ml/min (>60); GFR (African American) 228 ML/MIN (>60); Potassium 3.8 mmoL/L (3.5-5.1); Sodium 137 mmol/L (136-145)
[2020-08-10 01:19] LABS: POC Glucose,Bedside 330 (70-110)
[2020-08-10 01:19] LABS: POC Glucose,Bedside 278 (70-110)
[2020-08-10 01:19] LABS: POC Glucose,Bedside 314 (70-110)
[2020-08-10 01:19] LABS: POC Glucose,Bedside 261 (70-110)
[2020-08-10 01:20] LABS: Glucose 149 mg/dl (74-100)
[2020-08-10 02:00] VITALS: BP 89/60; PULSE 89; RESP 19; TEMP 36.7; O2SAT 97
[2020-08-10 02:35] VITALS: PULSE 89; O2SAT 97
--- NOTE | 2020-08-10 02:38 | PC.NURSE ---
She continues on seizure precautions. She has been resting t/o the night. She received a SC dose of Lantus at 0200 with plans to d/c insulin gtt at 0300. She ate several snacks before bed and tolerated them well. She is voiding per BSC. Her urine is yellow, clear. Fingersticks to be ACHS with SSI and glucose checked 4 hours after insulin gtt is d/c per Dr. Ayala. This timeframe will fall at 0600. She is now NSR on telemetry.
[2020-08-10 04:00] VITALS: BP 86/54; PULSE 83; PULSE 90; RESP 15; TEMP 36.9; O2SAT 97
[2020-08-10 05:57] VITALS: BMI 33.7
[2020-08-10 06:00] VITALS: BP 94/61; PULSE 78; O2SAT 97
[2020-08-10 06:41] LABS: Chloride 112 mmol/L (98-107); Sodium 137 mmol/L (136-145)
[2020-08-10 06:43] LABS: Alanine Aminotransferase 15 U/L (12-78); Aspartate Amino Transferase 39 U/L (14-36); Blood Urea Nitrogen 7 mg/dl (7-17); Creatinine Clearance Estimated 282 mL/min (50-200); Estimated Glomerular Filt Rate 189 ml/min (>60); GFR (African American) 228 ML/MIN (>60)
[2020-08-10 06:44] LABS: Albumin Level 2.8 g/dl (3.5-5.0); Alkaline Phosphatase 144 U/L (38-126); Bilirubin,Total 0.2 mg/dl (0.2-1.3); Calcium 8.1 mg/dl (8.4-10.2); Carbon Dioxide 19 mmol/L (22.0-30.0); Globulin 2.9 g/dL (1.3-3.2); Glucose 182 mg/dl (74-100); Magnesium 1.9 mg/dl (1.6-2.3); Total Protein,Serum 5.7 g/dl (6.3-8.2)
[2020-08-10 07:12] LABS: Basophils % 0.8 % (0.1-2.0); Eosinophils # 0.1 K/mm3 (0.0-0.4); Hematocrit 30.3 % (37.0-47.0); Lymphocytes # 1.5 K/mm3 (0.7-4.5); Lymphocytes % 31.6 % (10-50); Mean Corpuscular HGB Conc 33.5 g/dL (31.8-35.4); Mean Corpuscular Hemoglobin 28.1 pg (27.0-31.2); Mean Corpuscular Volume 83.7 fl (81-99); Mean Platelet Volume 9.5 fl (7.4-10.4); Monocytes # 0.2 K/mm3 (0.1-1.0); Monocytes % 4.9 % (1.7-9.3); Neutrophils # 2.9 K/mm3 (1.8-7.8); Neutrophils % 60.7 % (37.0-80.0); Platelet Count 231 K/mm3 (142-424); Red Blood Count 3.62 M/mm3 (4.20-5.40); Red Cell Distribution Width 13.9 % (11.5-17.5); White Blood Count 4.8 K/mm3 (4.8-10.8)
[2020-08-10 07:17] LABS: Hemoglobin 10.2 g/dL (12.2-16.2)
[2020-08-10 08:00] VITALS: BP 106/67; PULSE 60; PULSE 80; RESP 18; TEMP 36.4; O2SAT 100
[2020-08-10 08:41] LABS: Acetone, Serum (Rapid) None Detected (None Detect)
--- NOTE | 2020-08-10 09:28 | HMH.DCSUM ---
General - General Admission date:: 08/09/20 Discharge date: 08/10/20 HPI HPI: Homa is a 30-year-old female well-known to our office with poorly controlled diabetes, seizure disorder, obesity, and neuropathy. She presented to the ER today due to waking up with generalized malaise, nausea and vomiting, and feeling ill. Given her constellation of symptoms she came to the ER where she was noted to be in florid DKA with high anion gap metabolic acidosis. ER initiated work-up consisting of the following: CBC, CMP, VBG, ketones; urinalysis and chest x-ray to assess for infection. Patient given IV fluid bolus. Labs concerning for glucose greater than 600, anion gap of 29, and pH less than 7.3. Admitted for DKA and initiated on DKA protocol. On assessment after arriving to the floor, she states she was trying to adhere to the new regimen that was initiated after last discharge. She felt bad yesterday and therefore missed her outpatient appointment. Continue to feel bad this morning and came to the ER because she was vomiting. She was very tearful and disappointed in herself or not being able to do a better job with her management as this is her third admission in approximately a month. Of note was recently admitted 2 weeks ago for similar occurrence of DKA to our hospital. Insulin regimen as follows: Insulin glargine 50 units at night, 30 units in the morning. Short acting insulin 15 units with sliding scale insulin. This was half her previous dose. States she is tried to be compliant but the changes made it difficult. Admitted to medicine for further management. Patient's blood sugar better controlled by the time I assessed her on the floor. Requesting something to eat. Hospital Course Hospital Course: Patient was admitted overnight. Numbers looked good compared to her average DKA presentation. Insulin drip protocols were followed and she was able to be taken off her drip this morning at 3 AM. Placed on basal insulin last night and tolerated this well. She reports that she felt nauseated this morning but ate a full breakfast without vomiting or diarrhea or regurgitation. Examination was essentially unrevealing. She will be discharged home. I will increase her basal doses of insulin as noted in the discharge summary and will arrange short-term follow-up. Objective Vital signs: Temp Pulse Resp BP Pulse Ox 97.6 F 78 18 94/61 L 100 08/10/20 08:00 08/10/20 06:00 08/10/20 08:00 08/10/20 06:00 08/10/20 08:00 no acute distress - *Routine HEENT Exam Head: Present: normocephalic ENT: Present: mucous membranes moist Comments: Previously noted eye blindness in 1 eye - *Routine Neck Exam Present: supple - *Routine Respiratory Exam Present: CTA bilaterally - *Routine Cardiovascular Exam Present: RRR - *Routine Abdominal Exam Present: soft, normoactive bowel sounds, tenderness (Minimal subjective tenderness, no rebound, no guarding, no bruising) - *Routine Extremities Exam Absent: cyanosis, clubbing, edema - *Routine Skin Exam Present: warm. Absent: rash - Detailed Eye Exam Eyelids: Bilateral normal inspection Results Labs on day of discharge: Labs from last 24 hours 08/10/20 08/10/20 08/10/20 07:00 06:00 06:00 WBC 4.8 D RBC 3.62 L Hgb 10.2 L D Hct 30.3 L MCV 83.7 MCH 28.1 MCHC 33.5 RDW 13.9 Plt Count 231 D MPV 9.5 Neut % (Auto) 60.7 Lymph % (Auto) 31.6 Kinney % (Auto) 4.9 Eos % (Auto) 2.0 Baso % (Auto) 0.8 Neut # (Auto) 2.9 Lymph # (Auto) 1.5 Kinney # (Auto) 0.2 Eos # (Auto) 0.1 Baso # (Auto) 0.0 VBG pH VBG pCO2 VBG pO2 VBG HCO3 VBG Total CO2 VBG O2 Saturation VBG Base Excess Sodium 137 Potassium 4.0 Chloride 112 H Carbon Dioxide 19 L Anion Gap 10.0 BUN 7 D Creatinine 0.40 L Estimated Creat Clear 282 Estimated GFR 189 Est GFR ( Amer)
[2020-08-10 16:56] LABS: POC Glucose,Bedside 228 (70-110)
[2020-08-10 17:15] LABS: POC Glucose,Bedside 181 (70-110)
[2020-08-10 17:15] LABS: POC Glucose,Bedside 191 (70-110)
[2020-08-10 17:15] LABS: POC Glucose,Bedside 167 (70-110)
[2020-08-10 17:15] LABS: POC Glucose,Bedside 148 (70-110)
--- NOTE | 2020-08-10 18:18 | PC.NURSE ---
Pt left d/c packet todya when d/cd as well as insulin pen. This nurse called and pt stated she was already back to [place] and was unable to come back to get today, but did have insulin at home and would try to p/u mon when her appt was.
== END 2020-08-10 12:50 | disposition home or self-care (01) ==
LOC: ER 11:08 → 2ND 12:09
PROVIDERS: Internal Medicine Adolescent Medicine; Admitting Provider Internal Medicine Adolescent Medicine; Emergency Provider Emergency Medicine; PCP Internal Medicine Adolescent Medicine; Visit Provider Internal Medicine Adolescent Medicine
DX: E10.10 Type 1 diabetes mellitus with ketoacidosis without coma (principal); Z79.4 Long term (current) use of insulin; Z79.899 Other long term (current) drug therapy; Z88.1 Allergy status to other antibiotic agents; Z88.2 Allergy status to sulfonamides; E10.42 Type 1 diabetes mellitus with diabetic polyneuropathy
CPT/HCPCS: 36415; 71045; 80048; 80053; 81001; 82009; 82803; 82962; 83036; 83690; 83735; 85025; 86328; 96365; 96367; 96375; 99285; G0378; J1642; J2405

== ENCOUNTER 2020-08-16 11:26 | Observation (INO) | payer OTHER, SELFPAY ==
[2020-08-16] VITALS (17 sets, daily range): BP systolic 106–127; BP diastolic 61–80; PULSE 70–99; RESP 16–18; TEMP 36.4–36.8; O2SAT 96–100; BMI 32.5; BMI 33.0
--- NOTE | 2020-08-16 11:47 | PC.NURSE ---
notified RT of VBG order
--- NOTE | 2020-08-16 11:58 | HMH.EDGENADL ---
ED Disposition Clinical Impression: DKA (diabetic ketoacidoses) Qualifiers: Diabetes mellitus type: type 1 Diabetes mellitus complication detail: without coma Qualified Code(s): E10.10 - Type 1 diabetes mellitus with ketoacidosis without coma Disposition: Admitted As Inpatient Condition on Discharge: Serious Instructions: DI for Hyperglycemia -- Adult Referrals: PCP,No [Non-Staff] - - Critical Care Critical Care Time: Yes Attestation: On 08/16/20, the high probability of a clinically significant, sudden or life threatening deterioration of the following system(s) required my full and direct attention, intervention and personal management. The time I documented below is in addition to time spent performing reported procedures but includes the following listed in this critical care notation. Total Critical Care Time: 30 Vital system(s) involved:: Circulatory Failure, Metabolic Failure, Renal Failure My critical care processes included: Assessment & monitoring of V/S, Initial and Re-exams, Data Review/Interpretation, Coordinating Care, Medication Orders and management Medical Decision Making - Medical Records Medical records reviewed: Yes: I reviewed the patient's medical records. - Jamari Inquiry Pt receiving controlled substance: No Vital Signs: 08/16/20 11:27 08/16/20 12:35 08/16/20 13:05 Temperature 98.3 F Temperature Source Oral Pulse Rate [Right Radial] 99 H 86 85 Respiratory Rate 18 Blood Pressure [Right Arm] 122/62 110/61 115/67 Blood Pressure Mean [Right Arm] 82 77 83 Blood Pressure Source [Right Arm] Automatic Cuff Automatic Cuff Automatic Cuff Blood Pressure Position [Right Arm] Sitting Sitting Sitting 02 Sat by Pulse Oximetry 97 99 100 Oxygen Delivery Method Room Air Room Air Room Air - Lab Data Lab Results 08/16/20 11:55: Urine Color Yellow, Urine Appearance Clear, Urine pH 5.5, Ur Specific [place] 1.020, Urine Protein Negative, Urine Glucose (UA) 2+, Urine Ketones 3+, Urine Blood Negative, Urine Nitrate Negative, Urine Bilirubin Negative, Urine Urobilinogen 0.2, Ur Leukocyte Esterase Negative, Urine RBC None, Urine WBC 3-5, Ur Squamous Epith Cells 5-10, Urine Bacteria Trace 08/16/20 11:55: WBC 8.8, RBC 4.55, Hgb 12.9, Hct 39.4, MCV 86.6, MCH 28.3, MCHC 32.7, RDW 13.6, Plt Count 260, MPV 8.8, Neut % (Auto) 76.7, Lymph % (Auto) 18.3, Leon % (Auto) 3.2, Eos % (Auto) 0.9, Baso % (Auto) 0.8, Neut # (Auto) 6.8, Lymph # (Auto) 1.6, Leon # (Auto) 0.3, Eos # (Auto) 0.1, Baso # (Auto) 0.1 08/16/20 11:55: Sodium 133 L, Potassium 4.9, Chloride 104, Carbon Dioxide 7 L*, Anion Gap 26.9 H, BUN 18 H, Creatinine 0.50 L, Estimated Creat Clear 219, Estimated GFR 146, Est GFR ( Amer) 177, Glucose 466 H*, Calcium 9.0, Total Bilirubin 0.6, AST 33, ALT 16, Alkaline Phosphatase 235 H, Total Protein 7.9 D, Albumin 4.2, Globulin 3.7 H, Albumin/Globulin Ratio 1.1, Urine Acetone Large 08/16/20 12:32: Specimen Source R radial, O2 % Room air, ABG pH 7.17 L*, ABG pCO2 19.1 L, ABG pO2 147.5 H, ABG HCO3 6.8 L, ABG Total CO2 7.4 L, ABG O2 Saturation 98, ABG Base Excess -21.7 L, Agustin Test Acceptable Result diagrams: 08/16/20 11:55 08/16/20 11:55 Orders (Tests/Meds): ED MEDICATIONS Generic Name Dose Route Start Last Admin Trade Name Freq PRN Reason Stop Dose Admin Insulin Human Regular 100 unit 101 mls @ 8.43 mls/hr 08/16/20 12:45 08/16/20 14:00 / Sodium Chloride IV 09/15/20 12:44 8.43 mls/hr .[id number] DALIA Administration Protocol 0.1 UNITS/KG/HR Discontinued Medications Generic Name Dose Route Start Last Admin Trade Name Freq PRN Reason Stop Dose Admin Sodium Chloride 1,000 mls @ 999 mls/hr 08/16/20 11:45 08/16/20 12:12 Sod Chlor 0.9% 1000ml Bag IV 08/16/20 12:45 999 mls/hr .[id number] DALIA Administration Ondansetron HCl 4 mg 08/16/20 12:13 08/16/20 12:16 Zofran 4mg/2ml Vial IV 08/16/20 12:14 4 mg ONCE ONE Administration ORDERS Category Date Time Status VBG [Gucci
[2020-08-16 12:04] LABS: Microscopic, Urine URINE MICROSCOPIC (MICROSCOPIC)
[2020-08-16 12:08] LABS: Appearance,Urine CLEAR (Clear); Bilirubin,Urine Negative (Negative); Blood, Urine Negative (Negative); Color,Urine YELLOW (Yellow); Glucose,Urine (UA) 2+ (Negative); Ketones,Urine 3+ (Negative); Leukocyte Esterase,Urine Negative (Negative); Nitrate,Urine Negative (Negative); PH,Urine 5.5 (5.0-8.5); Protein,Urine Negative (Negative); Urobilinogen,Urine 0.2 EU/dl (0.2)
[2020-08-16 12:16] LABS: Chloride 104 mmol/L (98-107); Potassium 4.9 mmoL/L (3.5-5.1); Sodium 133 mmol/L (136-145)
[2020-08-16 12:19] LABS: Alanine Aminotransferase 16 U/L (12-78); Albumin Level 4.2 g/dl (3.5-5.0); Albumin/Globulin Ratio 1.1 (1.1-1.8); Alkaline Phosphatase 235 U/L (38-126); Anion Gap 26.9 mEq/L (5-15); Aspartate Amino Transferase 33 U/L (14-36); Basophils # 0.1 K/mm3 (0-0.2); Basophils % 0.8 % (0.1-2.0); Bilirubin,Total 0.6 mg/dl (0.2-1.3); Blood Urea Nitrogen 18 mg/dl (7-17); Creatinine Clearance Estimated 219 mL/min (50-200); Eosinophils # 0.1 K/mm3 (0.0-0.4); Eosinophils % 0.9 % (0.1-12.0); Estimated Glomerular Filt Rate 146 ml/min (>60); GFR (African American) 177 ML/MIN (>60); Globulin 3.7 g/dL (1.3-3.2); Hematocrit 39.4 % (37.0-47.0); Hemoglobin 12.9 g/dL (12.2-16.2); Lymphocytes # 1.6 K/mm3 (0.7-4.5); Lymphocytes % 18.3 % (10-50); Mean Corpuscular HGB Conc 32.7 g/dL (31.8-35.4); Mean Corpuscular Hemoglobin 28.3 pg (27.0-31.2); Mean Corpuscular Volume 86.6 fl (81-99); Mean Platelet Volume 8.8 fl (7.4-10.4); Monocytes # 0.3 K/mm3 (0.1-1.0); Monocytes % 3.2 % (1.7-9.3); Neutrophils # 6.8 K/mm3 (1.8-7.8); Neutrophils % 76.7 % (37.0-80.0); Platelet Count 260 K/mm3 (142-424); Red Blood Count 4.55 M/mm3 (4.20-5.40); Red Cell Distribution Width 13.6 % (11.5-17.5); Total Protein,Serum 7.9 g/dl (6.3-8.2); White Blood Count 8.8 K/mm3 (4.8-10.8)
[2020-08-16 12:31] LABS: Carbon Dioxide 7 mmol/L (22.0-30.0); Glucose 466 mg/dl (74-100)
--- NOTE | 2020-08-16 12:32 | PC.NURSE ---
notified ER of critical glucose result
[2020-08-16 12:36] LABS: ABG Base Excess -21.7 mmol/L (-2.4-2.3); ABG HCO3 6.8 mmhg (22.0-26.0); ABG Oxygen Saturation 98 % (90-100); ABG PO2 147.5 mmhg (80-100); ABG TCO2 7.4 mmhg (23-27)
[2020-08-16 12:37] LABS: Oxygen ROOM AIR %
[2020-08-16 12:38] LABS: Allen's Test ACCEPTABLE; Source R RADIAL
[2020-08-16 12:40] LABS: ABG PCO2 19.1 mmhg (35.0-45.0); ABG PH 7.17 mmol/L (7.35-7.45)
[2020-08-16 12:41] LABS: Bacteria,Urine Trace /lpf
--- NOTE | 2020-08-16 14:00 | PC.NURSE ---
dr tanna pierce
--- NOTE | 2020-08-16 14:10 | PC.NURSE ---
dr cisse returned call.
--- NOTE | 2020-08-16 14:37 | PC.NURSE ---
called lab to notify them of covid igg/igm order que states staff is coming down to collect more blood on pt.
[2020-08-16 15:22] LABS: Chloride 106 mmol/L (98-107); Potassium 5.3 mmoL/L (3.5-5.1); Sodium 138 mmol/L (136-145)
[2020-08-16 15:25] LABS: Anion Gap 31.3 mEq/L (5-15); Blood Urea Nitrogen 15 mg/dl (7-17); Calcium 9.6 mg/dl (8.4-10.2); Creatinine Clearance Estimated 219 mL/min (50-200); Estimated Glomerular Filt Rate 146 ml/min (>60); GFR (African American) 177 ML/MIN (>60); Glucose 353 mg/dl (74-100)
[2020-08-16 15:29] LABS: Carbon Dioxide 6 mmol/L (22.0-30.0)
--- NOTE | 2020-08-16 16:08 | PC.NURSE ---
lab states approx minutes until result of igg/igm
[2020-08-16 16:12] LABS: Coronavirus 19 IgG Antibody Negative (Negative); Coronavirus 19 IgM Antibody Negative (Negative)
--- NOTE | 2020-08-16 16:47 | PC.NURSE ---
report called to jessica levin at this time
--- NOTE | 2020-08-16 16:52 | PC.NURSE ---
pt fsbs 193, notified ER states to Decrease insulin drip to 5 units per hr and he will place order for IVF will continue to monitor
--- NOTE | 2020-08-16 16:55 | PC.NURSE ---
notified jessica levin of pt fsbs and change in insulin drip rate
--- NOTE | 2020-08-16 17:43 | HMH.HP ---
*Admission Date: 08/16/20 *Chief complaint: DKA, Emesis *History of present illness: Homa is a 30-year-old female well-known to our office with poorly controlled diabetes, seizure disorder, obesity, and neuropathy. She presented to the ER today due to worsening nausea, abdominal pain, and increasing Ketones over the past 2-3 days. She reports waking today with significant worsening pain, nausea, and feeling ill. Given her constellation of symptoms she came to the ER where she was noted to be in florid DKA with high anion gap metabolic acidosis. ER initiated work-up consisting of the following: CBC, CMP, VBG, ketones; urinalysis and chest x-ray to assess for infection. Patient given IV fluid bolus. Labs concerning for hyperglycemia, High anion gap, and pH less than 7.2. Admitted for DKA and initiated on DKA protocol. On assessment after arriving to the floor, she states she was trying to adhere to the regimen at discharge from previous admission. Missed follow-up due to car troubles. She was very upset and regretful of not being able to do a better job with her management as this is her fourth admission in approximately a 5-6 weeks. Of last admission/discharge: Insulin regimen as follows: Insulin glargine 50 units at night, 30 units in the morning. Short acting insulin 15 units with sliding scale insulin. This was half her previous dose. States she is tried to be compliant but the changes made it difficult. Admitted to medicine for further management. [facility] History I have reviewed the patient's past medical history: Yes Medical History: Reports:: Arrhythmia, Deep Vein Thrombosis, Depression, Diabetes Mellitus Type 1, MRSA, Palpitations, Pulmonary Embolism, Seizures Denies:: Cancer, Diabetes Mellitus Type 2, Internal Pacemaker *Have you ever received a pneumonia vaccine?: No *Have you received a flu vaccine this season?: No Other Medical History: Reports: Anemia, Other. Denies: Blood Transfusion Reaction Laterality Cases: Bilateral: Other Other Surgeries: Yes: Appendectomy, Cholecystectomy, Dilation and Curettage, Hysterectomy-Partial ( everything but left ovary ), Tubal Ligation, Other (ablation). No: Pacemaker Amputation: No Fractures: No - *Social History Smoking Status: Never smoker Tobacco Type: cigarettes # Packs/Day (cigarettes): 1 #Yrs smoked (if former smoker): 4 Alcohol Intake: never Alcohol Intake Frequency:: holidays/special occasions only Substance Use Type: former substance user *Occupational Status:: disabled Housing: apartment Household Members: friend(s) *Travel in the last 8 weeks: None - Psychiatric History Pschychiatric History:: Reports:: Depression Family Hx:: Coronary Artery Disease, Diabetes, Heart Attack, Hyperlipidemia, Stroke Review of Systems - Review of Systems Review of systems:: pertinent systems reviewed and negative unless documented below (14 point review of systems performed, pertinent positives and negatives as per HPI) - *Neurologic Denies fainting Meds Home Medications Medication Instructions Recorded Confirmed Type OXcarbazepine [Trileptal 300mg 1,200 mg PO BID 11/03/18 08/09/20 History tablet] Venlafaxine HCl [Effexor XR 75mg 75 mg PO DAILY 12/15/19 08/09/20 History capsule] Gabapentin [Gabapentin 300mg Cap] 300 mg PO TID 01/28/20 08/09/20 History Metformin HCl 250 mg PO HS 01/28/20 08/09/20 History raNITIdine HCl [Acid Human Factors Ergonomist] 150 mg PO BID 01/28/20 08/09/20 History Levothyroxine Sodium 25 mcg PO DAILY 01/29/20 08/09/20 History [Levothyroxine 25mcg (0.025mg) Tab] levETIRAcetam [Levetiracetam] 2,500 mg PO BID 01/29/20 08/09/20 History Promethazine HCl [Phenergan 25mg 25 mg PO Q6H PRN 4 Days #12 tab 05/26/20 08/09/20 Rx tab] Pantoprazole Sodium [Protonix 40mg 40 mg PO HS 07/23/20 08/09/20 History tablet] Sucralfate [Sucralfate 1gm 1 gm PO ACHS 07/23/20 08/09/20 History Tab] Insulin Lispro [HumaLOG 100 15 unit SQ AC 08/09/20 08/16/20 Hist
[2020-08-16 18:39] LABS: Chloride 109 mmol/L (98-107)
[2020-08-16 18:40] LABS: Sodium 138 mmol/L (136-145)
[2020-08-16 18:43] LABS: Blood Urea Nitrogen 14 mg/dl (7-17); Calcium 9.1 mg/dl (8.4-10.2); Carbon Dioxide 13 mmol/L (22.0-30.0); Creatinine Clearance Estimated 221 mL/min (50-200); Estimated Glomerular Filt Rate 146 ml/min (>60); GFR (African American) 177 ML/MIN (>60); Glucose 124 mg/dl (74-100)
--- NOTE | 2020-08-16 19:14 | PC.NURSE ---
report given to erika
--- NOTE | 2020-08-16 20:04 | PC.NURSE ---
1800 fsbg 103, decreased insulin gtt to 2.5units/hr 1900- fsbg 88, decreased insulin gtt to 1.25units/hr, changed fluids to D5NS @150ml/hr per Dr Lucy lopez
[2020-08-16 22:13] LABS: POC Glucose,Bedside 103 (70-110)
[2020-08-16 22:13] LABS: POC Glucose,Bedside 88 (70-110)
[2020-08-16 22:22] LABS: POC Glucose,Bedside 150 (70-110)
[2020-08-16 22:22] LABS: POC Glucose,Bedside 118 (70-110)
[2020-08-16 22:22] LABS: POC Glucose,Bedside 103 (70-110)
[2020-08-16 22:38] LABS: Chloride 108 mmol/L (98-107); Potassium 4.1 mmoL/L (3.5-5.1); Sodium 134 mmol/L (136-145)
[2020-08-16 22:41] LABS: Anion Gap 16.1 mEq/L (5-15); Blood Urea Nitrogen 12 mg/dl (7-17); Calcium 8.5 mg/dl (8.4-10.2); Carbon Dioxide 14 mmol/L (22.0-30.0); Creatinine Clearance Estimated 277 mL/min (50-200); Estimated Glomerular Filt Rate 189 ml/min (>60); GFR (African American) 228 ML/MIN (>60); Glucose 167 mg/dl (74-100)
[2020-08-16 23:23] LABS: POC Glucose,Bedside 184 (70-110)
[2020-08-17] VITALS (9 sets, daily range): BP systolic 113–132; BP diastolic 61–82; PULSE 64–78; RESP 16–20; TEMP 35.9–36.8; O2SAT 94–100; BMI 19.3
[2020-08-17 01:21] LABS: POC Glucose,Bedside 211 (70-110)
[2020-08-17 01:21] LABS: POC Glucose,Bedside 238 (70-110)
[2020-08-17 02:41] LABS: POC Glucose,Bedside 247 (70-110)
--- NOTE | 2020-08-17 03:39 | PC.NURSE ---
Pt has rested well this shift. Has not c/o discomfort. Has had ice chips, beef broth and diet soda this shift. She remains on Insulin gtt. She is currently on 2 units/hr at this time. Titrated per protocol. IV fluids not changed. It was passed in report to leave fluids on D5 NS @ 150 ml/hr per MD. Spoke with MD this shift for any additional changes to fluids. Will wait for AM labs. VSS. New IV placed in (R) wrist. Pt tolerated well. No other concerns at this time. Will continue to monitor.
[2020-08-17 04:08] LABS: POC Glucose,Bedside 207 (70-110)
[2020-08-17 05:59] LABS: POC Glucose,Bedside 224 (70-110)
[2020-08-17 06:31] LABS: POC Glucose,Bedside 211 (70-110)
--- NOTE | 2020-08-17 07:56 | PC.NURSE ---
Insulin titration 2000 - 1 unit/hr 0400 - 2 units/hr
[2020-08-17 08:28] LABS: POC Glucose,Bedside 287 (70-110)
[2020-08-17 08:55] LABS: Chloride 111 mmol/L (98-107); Sodium 133 mmol/L (136-145)
[2020-08-17 08:56] LABS: Potassium 4.3 mmoL/L (3.5-5.1)
[2020-08-17 08:58] LABS: Blood Urea Nitrogen 8 mg/dl (7-17); Creatinine Clearance Estimated 217 mL/min (50-200); Estimated Glomerular Filt Rate 263 ml/min (>60); GFR (African American) 318 ML/MIN (>60)
[2020-08-17 08:59] LABS: Anion Gap 10.3 mEq/L (5-15); Calcium 8.2 mg/dl (8.4-10.2); Carbon Dioxide 16 mmol/L (22.0-30.0); Glucose 206 mg/dl (74-100)
[2020-08-17 10:09] LABS: POC Glucose,Bedside 193 (70-110)
[2020-08-17 10:51] LABS: POC Glucose,Bedside 181 (70-110)
--- NOTE | 2020-08-17 11:46 | PC.NURSE ---
REPORTED TO PCP PT'S GAP IS 10.3 AND BLOOD SUGAR IS 181. PCP WANTS THE INSULIN DRIP STOPPED AND IVF'S DECREASED TO NS AT 100ML'S/HR.
--- NOTE | 2020-08-17 12:16 | HMH.ACPN2 ---
Internal Medicine - PN: Subj *Date: 08/17/20 *Time: 12:16 Interval history: Patient's gap is closed overnight. Tolerated drip well without issue. Hungry this morning and wanting to advance diet. Will resume basal bolus regimen and assess insulin needs over the course of today. Continue to monitor for signs of infection, urine pending. Denies chest pain or shortness of breath. Does still have some abdominal pain though this is chronic. Exam Vital signs and Labs for Last 24 Hours: Temp Pulse Resp BP Pulse Ox 97.9 F 68 20 118/79 98 08/17/20 10:00 08/17/20 10:00 08/17/20 10:00 08/17/20 10:00 08/17/20 10:00 Laboratory Results - last 24 hr 08/16/20 11:55: Urine RBC None, Urine WBC 3-5, Ur Squamous Epith Cells 5-10, Urine Bacteria Trace 08/16/20 11:55: WBC 8.8, RBC 4.55, Hgb 12.9, Hct 39.4, MCV 86.6, MCH 28.3, MCHC 32.7, RDW 13.6, Plt Count 260, MPV 8.8, Neut % (Auto) 76.7, Lymph % (Auto) 18.3, [place] % (Auto) 3.2, Eos % (Auto) 0.9, Baso % (Auto) 0.8, Neut # (Auto) 6.8, Lymph # (Auto) 1.6, [place] # (Auto) 0.3, Eos # (Auto) 0.1, Baso # (Auto) 0.1 08/16/20 11:55: Sodium 133 L, Potassium 4.9, Chloride 104, Carbon Dioxide 7 L*, Anion Gap 26.9 H, BUN 18 H, Creatinine 0.50 L, Estimated Creat Clear 219, Estimated GFR 146, Est GFR ( Amer) 177, Glucose 466 H*, Calcium 9.0, Total Bilirubin 0.6, AST 33, ALT 16, Alkaline Phosphatase 235 H, Total Protein 7.9 D, Albumin 4.2, Globulin 3.7 H, Albumin/Globulin Ratio 1.1, Urine Acetone Large 08/16/20 12:32: Specimen Source R radial, O2 % Room air, ABG pH 7.17 L*, ABG pCO2 19.1 L, ABG pO2 147.5 H, ABG HCO3 6.8 L, ABG Total CO2 7.4 L, ABG O2 Saturation 98, ABG Base Excess -21.7 L, Agustin Test Acceptable 08/16/20 15:00: Sodium 138, Potassium 5.3 H, Chloride 106, Carbon Dioxide 6 L* D, Anion Gap 31.3 H, BUN 15, Creatinine 0.50 L, Estimated Creat Clear 219, Estimated GFR 146, Est GFR ( Amer) 177, Glucose 353 H D, Calcium 9.6 08/16/20 15:00: SARS-CoV-2 IgG Ab (Rapid) Negative, SARS-CoV-2 IgM Ab (Rapid) Negative 08/16/20 16:50: POC Glucose 193 H 08/16/20 18:05: POC Glucose 103 08/16/20 18:23: Sodium 138, Potassium 4.0 D, Chloride 109 H, Carbon Dioxide 13 L D, Anion Gap 20.0 H, BUN 14, Creatinine 0.50 L, Estimated Creat Clear 221, Estimated GFR 146, Est GFR ( Amer) 177, Glucose 124 H D, Calcium 9.1 08/16/20 18:56: POC Glucose 88 08/16/20 20:14: POC Glucose 103 08/16/20 21:05: POC Glucose 118 H 08/16/20 22:15: POC Glucose 150 H 08/16/20 22:22: Sodium 134 L, Potassium 4.1, Chloride 108 H, Carbon Dioxide 14 L, Anion Gap 16.1 H, BUN 12, Creatinine 0.40 L, Estimated Creat Clear 277, Estimated GFR 189, Est GFR ( Amer) 228 D, Glucose 167 H D, Calcium 8.5 08/16/20 22:58: POC Glucose 184 H 08/17/20 00:05: POC Glucose 211 H 08/17/20 01:03: POC Glucose 238 H 08/17/20 02:30: POC Glucose 247 H 08/17/20 03:58: POC Glucose 207 H 08/17/20 05:28: POC Glucose 224 H 08/17/20 06:24: POC Glucose 211 H 08/17/20 06:57: Sodium 133 L, Potassium 4.3, Chloride 111 H, Carbon Dioxide 16 L, Anion Gap 10.3, BUN 8 D, Creatinine 0.30 L D, Estimated Creat Clear 217, Estimated GFR 263, Est GFR ( Amer) 318 D, Glucose 206 H D, Calcium 8.2 L 08/17/20 08:13: POC Glucose 287 H 08/17/20 10:36: POC Glucose 181 H I & O for Last 24 hours: Intake & Output 08/14/20 08/15/20 08/16/20 08/17/20 23:59 23:59 23:59 23:59 Intake Total 1000 / 1000 860 / 860 Balance 1000 / 1000 860 / 860 Weight 84.51 kg 49.64 kg Narrative: - Constitutional No acute distress, obese - *Routine HEENT Exam Head: Present: normocephalic Eye: Present: EOMI, PERRL (right eye with cataract) ENT: Present: mucous membranes moist - *Routine Neck Exam Present: supple. Absent: lymphadenopathy - *Routine Respiratory Exam Present: CTA bilaterally - *Routine Cardiovascular Exam Present: RRR - *Routine Abdominal Exam Present: soft, normoactive bowel sounds, tenderness (diffuse, nonfocal) - *Routine Extremities Exam Absen
[2020-08-17 12:37] LABS: POC Glucose,Bedside 160 (70-110)
[2020-08-17 13:27] LABS: Adenovirus F 40/41, stool Not Detected (NotDetected); Astrovirus Not Detected (NotDetected); Campylobacter Not Detected (NotDetected); Clostridium Difficile A/B, PCR Not Detected (NotDetected); Cryptosporidium Not Detected (NotDetected); Cyclospora Cayetanesis Not Detected (NotDetected); Entamoeba histolytica Not Detected (NotDetected); Enteroaggregative E coli Not Detected (NotDetected); Enteropathogenic E coli Not Detected (NotDetected); Enterotoxigenic E coli Not Detected (NotDetected); Giardia lamblia Not Detected (NotDetected); Norovirus Not Detected (NotDetected); Plesimonas Shigalloides, PCR Not Detected (NotDetected); Rotavirus A Not Detected (NotDetected); Salmonella, PCR Not Detected (NotDetected); Sapovirus Not Detected (NotDetected); Shiga-like toxin E coli Not Detected (NotDetected); Shigella Enterovasive E coli Not Detected (NotDetected); Vibrio Cholerae Not Detected (NotDetected); Vibrio, PCR Not Detected (NotDetected); Yersinia Entercolitica, PCR Not Detected (NotDetected)
--- NOTE | 2020-08-17 14:55 | P.CONPHA_ITS ---
[facility] Pharmacy VTE Monitoring - Patient Demographics Admission date: 08/16/20 Report Date: 08/17/20 Time: 14:55 Allergies/Adverse Reactions: Patient Allergies buspirone [BUSPIRONE] Allergy (Severe, Verified 12/15/19 05:31) Seizure nitrofurantoin [NITROFURANTOIN] Allergy (Severe, Verified 01/28/20 15:29) Seizure sulfamethoxazole [From BACTRIM] Allergy (Severe, Verified 01/28/20 15:29) Seizure trimethoprim [From BACTRIM] Allergy (Severe, Verified 01/28/20 15:29) Seizure topiramate [From TOPAMAX] Allergy (Unknown, Verified 01/28/20 15:29) adhesive tape Adverse Reaction (Intermediate, Verified 01/28/20 15:29) SKIN IRRITATION Height: 1.6 m Weight: 49.64 kg - VTE Risk Labs: VTE Related Lab Results Hgb 12.9 g/dL (12.2-16.2) 08/16/20 11:55 Hct 39.4 % (37.0-47.0) 08/16/20 11:55 Plt Count 260 K/mm3 (142-424) 08/16/20 11:55 BUN 8 mg/dl (7-17) D 08/17/20 06:57 Creatinine 0.30 mg/dl (0.52-1.04) L D 08/17/20 06:57 Estimated Creat Clear 217 mL/min (50-200) 08/17/20 06:57 - Prophylaxis VTE Prophylaxis Ordered?: Yes Types of VTE Prophylaxis: TEDS Knee High Location of Applied Device: Bilateral Lower Extremeties
--- NOTE | 2020-08-17 14:57 | HMH.PHAINT ---
MEDICATION RECONCILIATION COMPLETED ON PATIENT USING DISCHARGE SUMMARY FROM VISIT ON 08/10/20. -SADI BABCOCKD
[2020-08-17 16:39] LABS: POC Glucose,Bedside 412 (70-110)
--- NOTE | 2020-08-17 16:48 | PC.NURSE ---
PT IS RESTING IN BED WITH FAMILY IN THE ROOM. NO COMPLAINTS OF DISCOMFORT. ALERT AND ORIENTED X4. PT STATED SHE HAS HAD SEVERAL LOOSE BOWEL MOVEMENTS THIS SHIFT. STOOL WAS COLLECTED. LAB HAS BEEN NOTIFIED AND STATED DIARRHEA PANEL IS STILL PENDING. LUNG SOUNDS CLEAR. BOWEL SOUNDS NORMAL. AMBULATED AROUND THE ROOM. PT TOLERATED GETTING A SHOWER THIS SHIFT. EATING AND DRINKING WELL. PCP STATED LONG PT IS DRINKING WELL IVF'S CAN BE DC'D. VSS. WILL CONTINUE TO MONITOR.
[2020-08-17 18:09] LABS: Chloride 104 mmol/L (98-107); Potassium 3.7 mmoL/L (3.5-5.1); Sodium 137 mmol/L (136-145)
[2020-08-17 18:12] LABS: Anion Gap 11.7 mEq/L (5-15); Blood Urea Nitrogen 12 mg/dl (7-17); Carbon Dioxide 25 mmol/L (22.0-30.0); Creatinine Clearance Estimated 81 mL/min (50-200); Estimated Glomerular Filt Rate 85 ml/min (>60); GFR (African American) 103 ML/MIN (>60)
[2020-08-17 18:13] LABS: Calcium 8.7 mg/dl (8.4-10.2); Glucose 131 mg/dl (74-100)
[2020-08-17 22:12] LABS: POC Glucose,Bedside 260 (70-110)
[2020-08-18] VITALS: BP 148/82; PULSE 80; RESP 18; TEMP 37.2; O2SAT 98
--- NOTE | 2020-08-18 03:19 | PC.NURSE ---
Pt remains A&O x4. Lung sounds remain clear t/o. Pt has complained about nausea x1 this shift. MD Ayala paged, SEE PROVIDER NOTIFICATION. PRN meds administered per MAR. Upon reassessment, pt had no c/o nausea. Pt has had no loose stools thus far this shift. Pt states last BM was sometime during the day on 08/17/20. 2100 FSBS was 260. Pt received 10 units of Humalog per JAN along with 30 units of the Lantus per JAN. Pt's PIV in right wrist was d/c due to pt complaining of pain and burning at the IV site. Pt still has PIV in LFA and is SL. Significant other has remained at bedside all night. Pt is currently sleeping in bed after being awake most of the shift. Call light is within reach. No other acute changes or complaints at this time. Will continue to monitor.
[2020-08-18 04:00] VITALS: BP 118/67; PULSE 71; RESP 18; TEMP 36.6; O2SAT 100
[2020-08-18 04:57] VITALS: BMI 29.8
[2020-08-18 05:59] LABS: POC Glucose,Bedside 192 (70-110)
[2020-08-18 06:02] LABS: Basophils % 0.7 % (0.1-2.0); Eosinophils # 0.1 K/mm3 (0.0-0.4); Eosinophils % 2.6 % (0.1-12.0); Hematocrit 33.3 % (37.0-47.0); Hemoglobin 11.2 g/dL (12.2-16.2); Lymphocytes # 1.6 K/mm3 (0.7-4.5); Lymphocytes % 29.4 % (10-50); Mean Corpuscular HGB Conc 33.6 g/dL (31.8-35.4); Mean Corpuscular Volume 83.1 fl (81-99); Mean Platelet Volume 8.7 fl (7.4-10.4); Monocytes # 0.3 K/mm3 (0.1-1.0); Monocytes % 5.5 % (1.7-9.3); Neutrophils # 3.4 K/mm3 (1.8-7.8); Neutrophils % 61.8 % (37.0-80.0); Platelet Count 220 K/mm3 (142-424); Red Blood Count 4.01 M/mm3 (4.20-5.40); Red Cell Distribution Width 14.1 % (11.5-17.5); White Blood Count 5.5 K/mm3 (4.8-10.8)
[2020-08-18 06:14] LABS: Chloride 107 mmol/L (98-107); Sodium 137 mmol/L (136-145)
[2020-08-18 06:15] LABS: Potassium 3.8 mmoL/L (3.5-5.1)
[2020-08-18 06:17] LABS: Anion Gap 9.8 mEq/L (5-15); Blood Urea Nitrogen 7 mg/dl (7-17); Carbon Dioxide 24 mmol/L (22.0-30.0); Creatinine Clearance Estimated 250 mL/min (50-200); Estimated Glomerular Filt Rate 189 ml/min (>60); GFR (African American) 228 ML/MIN (>60)
[2020-08-18 06:18] LABS: Calcium 9.1 mg/dl (8.4-10.2); Magnesium 1.7 mg/dl (1.6-2.3)
[2020-08-18 06:21] LABS: Glucose 173 mg/dl (74-100)
[2020-08-18 07:46] VITALS: BP 112/83; PULSE 86; RESP 18; TEMP 36.8; O2SAT 99
--- NOTE | 2020-08-18 08:27 | HMH.DCSUM ---
General - General Admission date:: 08/16/20 Discharge date: 08/18/20 HPI HPI: Homa is a 30-year-old female well-known to our office with poorly controlled diabetes, seizure disorder, obesity, and neuropathy. She presented to the ER today due to worsening nausea, abdominal pain, and increasing Ketones over the past 2-3 days. She reports waking today with significant worsening pain, nausea, and feeling ill. Given her constellation of symptoms she came to the ER where she was noted to be in florid DKA with high anion gap metabolic acidosis. ER initiated work-up consisting of the following: CBC, CMP, VBG, ketones; urinalysis and chest x-ray to assess for infection. Patient given IV fluid bolus. Labs concerning for hyperglycemia, High anion gap, and pH less than 7.2. Admitted for DKA and initiated on DKA protocol. On assessment after arriving to the floor, she states she was trying to adhere to the regimen at discharge from previous admission. Missed follow-up due to car troubles. She was very upset and regretful of not being able to do a better job with her management as this is her fourth admission in approximately a 5-6 weeks. Of last admission/discharge: Insulin regimen as follows: Insulin glargine 50 units at night, 30 units in the morning. Short acting insulin 15 units with sliding scale insulin. This was half her previous dose. States she is tried to be compliant but the changes made it difficult. Admitted to medicine for further management. Hospital Course Hospital Course: Patient admitted for DKA. Started on DKA protocol including insulin drip. Anion gap closed by morning and she was transitioned to basal bolus regimen. Tolerated sliding scale insulin during admission and 30 units twice daily of insulin glargine. Blood sugar remained in the mid 100-200 range. Discussed discharging home with a basal regimen of 35 units of insulin glargine twice a day, and 10 units of short acting insulin with each meal plus sliding scale. Will be provided with sliding scale at time of discharge. Given her nausea that is persistent and her GI symptoms, will stop her metformin in the outpatient setting as it has not helped significantly with improving her A1c/insulin sensitivity and only exacerbates her GI symptoms. We will provide her with some Phenergan for nausea. Tolerating regular diet at time of discharge. Patient remained hemodynamically stable and afebrile. Denied chest pain, cough, shortness of breath, headache. Complained of loose stools, intermittent nausea, and fatigue. No infectious source identified in either urine or stool. Had brief but intense discussion about compliance. Patient counseled to resume her journaling of blood sugars and insulin regimen as she had better control several months ago when she was doing this regularly. Also instructed to adhere to her follow-up/outpatient appointments as she has missed 4 appointments in the past 2 months as a no-show . This greatly complicates her care, ability to manage her diabetes, and our ability to continue to care for her in the outpatient setting. Informed her that this jeopardizes her ability to continue to be our patient. She stated understanding. Plan to follow-up within 1 week to go over blood sugar and insulin journal to make further adjustment for control of her diabetes. Instructed to call us if she has ketones in her urine or difficulty with discharge regimen. Objective Vital signs: Temp Pulse Resp BP Pulse Ox 98.2 F 86 18 112/83 99 08/18/20 07:46 08/18/20 07:46 08/18/20 07:46 08/18/20 07:46 08/18/20 07:46 Narrative: - Constitutional No acute distress, obese - *Routine HEENT Exam Head: Present: normocephalic Eye: Present: EOMI, PERRL (right eye with cataract) ENT: Present: mucous membranes moist - *Routine Neck Exam Present: supple. Absent: lymphadenopathy - *Routine Respiratory Exam Present: CTA bilaterally - *Ro
[2020-08-18 09:30] VITALS: O2SAT 99
[2020-08-18 11:20] LABS: POC Glucose,Bedside 378 (70-110)
--- NOTE | 2020-08-18 13:28 | HMH.PHAINT ---
DISCHARGE COUNSELING COMPLETED ON PATIENT. NEW PRESCRIPTIONS INCLUDE LEVOTHYROXINE AND PROMETHAZINE. PATIENT'S INSULIN GLARGINE WAS CHANGED TO 35 UNITS BID AND PATIENT WILL TAKE 15 UNITS LISPRO AC IN ADDITION TO SLIDING SCALE THAT WAS PROVIDED. STOPPING METFORMIN AT THIS TIME. PATIENT VERBALIZED UNDERSTANDING AND HAD NO QUESTIONS. -BRENDA CHARLES, SADID
--- NOTE | 2020-08-18 13:33 | PC.NURSE ---
A&OX4. PT HAS TOLERATED ROOM AIR WELL THROUGHOUT SHIFT. RESPIRATIONS REGULAR AND UNLABORED. LUNG SOUNDS BILATERALLY CLEAR. NO COUGH NOTED. NO EDEMA NOTED. +2 PULSES NOTED THROUGHOUT. HAND FLORAL CLERK EQUAL. ACTIVE BOWEL SOUNDS HEARD IN ALL 4 QUADRANTS. SOFT AND NONTENDER ABDOMEN. NO BM THUS FAR. PT AMBULATES TO THE BATHROOM INDEPENDENTLY W STEADY GAIT NOTED. NO REPORTS OF NAUSEA OR PAIN THROUGHOUT SHIFT. PT RECEIVED 15 UNITS OF INSULIN AT 11 FOR A BLOOD SUGAR OF 378. PT IS CURRENTLY BEING DISCHARGED. BED IN LOWEST POSITION. CALL LIGHT WITHIN REACH. VSS. WILL CONTINUE TO MONITOR.
== END 2020-08-18 13:33 | disposition home or self-care (01) ==
LOC: ER 13:58 → 2ND 08-18 08:30
PROVIDERS: Admitting Provider Internal Medicine Adolescent Medicine; Emergency Provider Emergency Medicine; PCP Internal Medicine Adolescent Medicine; Visit Provider Internal Medicine Adolescent Medicine
DX: E10.10 Type 1 diabetes mellitus with ketoacidosis without coma (principal); E10.42 Type 1 diabetes mellitus with diabetic polyneuropathy; Z79.4 Long term (current) use of insulin; Z79.899 Other long term (current) drug therapy; G40.909 Epilepsy, unspecified, not intractable, without status epilepticus; E87.1 Hypo-osmolality and hyponatremia; R65.10 Systemic inflammatory response syndrome (SIRS) of non-infectious origin without acute organ dysfunction; Z88.1 Allergy status to other antibiotic agents; Z88.2 Allergy status to sulfonamides
CPT/HCPCS: 36415; 80048; 80053; 81001; 82009; 82803; 82962; 83735; 85025; 86328; 87086; 87507; 96365; 96367; 96375; 99285; G0378; J2405

== ENCOUNTER → 2020-10-18 12:53 | Outpatient (CLI) | payer OTHER, SELFPAY ==
--- NOTE | 2020-10-18 12:56 | MR_ITS ---
PROCEDURE: MR LUMBAR SPINE WO CON CLINICAL INDICATION: LUMBAGO WITH SCIATICA, RIGHT SIDE Low back pain with right hip pain COMPARISON: MR SPLUMBWO MR lumbar spine wo con from 05/13/2018 TECHNIQUE: Standard multiplanar multiecho sequences are performed without contrast. 3-D MIP and myelographic images are also rendered and reviewed FINDINGS: There is normal alignment. The spinal cord ends at the L1-L2 level. L1-L2: Unremarkable. L2-L3: Mild facet ligamentum hypertrophy not significantly changed. L3-L4: Mild facet and ligamentum hypertrophy not significantly changed. L4-5: Minimal bulging disc with facet and ligamentum hypertrophy with mild bilateral lateral recess and mild bilateral foraminal narrowing not significantly changed. L5-S1: Degenerative disc disease with bulging disc. There is moderate facet and ligamentum hypertrophy. There is a small right paracentral disc herniation with minimal superior extrusion. The herniated portion of the disc measures approximately 11 mm cephalad caudad and 6 mm transverse. This is impinging upon the right S1 nerve root causing severe right lateral recess narrowing. There is moderate bilateral foraminal narrowing from the facet and ligamentum hypertrophy IMPRESSION: 1. At L5-S1 there is degenerative disc disease with a small right paracentral disc herniation with minimal superior extrusion. The herniated portion of the disc measures approximately 11 mm cephalad caudad and 6 mm transverse. This is impinging upon the right S1 nerve root causing severe right lateral recess narrowing. There is moderate bilateral foraminal narrowing from the facet and ligamentum hypertrophy 2. Other areas of lumbar spondylosis as detailed above not significantly changed. Dictated by: Agustin Yu MD 10/21/2020 09:11 Agustin Yu MD in [place] 10/21/2020 09:11
== END ==
PROVIDERS: PCP Internal Medicine Adolescent Medicine; Visit Provider Internal Medicine Adolescent Medicine
DX: M54.41 Lumbago with sciatica, right side (principal)
CPT/HCPCS: 72148; 76376

== ENCOUNTER 2020-11-28 12:32 | Emergency (ER) | payer OTHER, SELFPAY ==
[2020-11-28 12:36] VITALS: BP 140/72; PULSE 76; RESP 16; TEMP 36.9; O2SAT 96; BMI 35.4
--- NOTE | 2020-11-28 13:27 | PC.NURSE ---
Advised lab FSBS was 576. Labs have been drawn and sent up
[2020-11-28 13:30] LABS: Microscopic, Urine URINE MICROSCOPIC (MICROSCOPIC)
[2020-11-28 13:34] LABS: Basophils # 0.1 K/mm3 (0-0.2); Basophils % 0.5 % (0.1-2.0); Eosinophils # 0.1 K/mm3 (0.0-0.4); Hematocrit 38.3 % (37.0-47.0); Hemoglobin 12.1 g/dL (12.2-16.2); Lymphocytes # 1.6 K/mm3 (0.7-4.5); Lymphocytes % 16.2 % (10-50); Mean Corpuscular HGB Conc 31.7 g/dL (31.8-35.4); Mean Corpuscular Hemoglobin 26.3 pg (27.0-31.2); Mean Corpuscular Volume 82.8 fl (81-99); Mean Platelet Volume 8.2 fl (7.4-10.4); Monocytes # 0.3 K/mm3 (0.1-1.0); Monocytes % 3.4 % (1.7-9.3); Neutrophils # 7.9 K/mm3 (1.8-7.8); Platelet Count 306 K/mm3 (142-424); Red Blood Count 4.62 M/mm3 (4.20-5.40); Red Cell Distribution Width 15.4 % (11.5-17.5)
[2020-11-28 13:37] LABS: Appearance,Urine CLEAR (Clear); Bilirubin,Urine Negative (Negative); Blood, Urine Negative (Negative); Color,Urine YELLOW (Yellow); Glucose,Urine (UA) 3+ (Negative); Ketones,Urine 1+ (Negative); Leukocyte Esterase,Urine Negative (Negative); Nitrate,Urine Negative (Negative); Protein,Urine Negative (Negative); Specific Gravity, Urine <= 1.005 (1.005-1.030); Urine Pregnancy, HCG Qual. Negative (Negative); Urobilinogen,Urine 0.2 EU/dl (0.2)
[2020-11-28 13:47] LABS: Alanine Aminotransferase 21 U/L (12-78); Albumin/Globulin Ratio 1.1 (1.1-1.8); Alkaline Phosphatase 233 U/L (38-126); Anion Gap 11.5 mEq/L (5-15); Aspartate Amino Transferase 28 U/L (14-36); Bilirubin,Total 0.4 mg/dl (0.2-1.3); Blood Urea Nitrogen 15 mg/dl (7-17); Calcium 9.3 mg/dl (8.4-10.2); Carbon Dioxide 25 mmol/L (22.0-30.0); Chloride 98 mmol/L (98-107); Creatinine Clearance Estimated 238 mL/min (50-200); Estimated Glomerular Filt Rate 146 ml/min (>60); GFR (African American) 177 ML/MIN (>60); Globulin 3.5 g/dL (1.3-3.2); Lipase 170 U/L (23-300); Potassium 4.5 mmoL/L (3.5-5.1); Sodium 130 mmol/L (136-145); Total Protein,Serum 7.5 g/dl (6.3-8.2)
[2020-11-28 13:48] LABS: Glucose 589 mg/dl (74-100); RBC,Urine Occasional #/hpf (0-3); Squamous Epithelial Cell,Urine Occasional #/hpf (0-5)
[2020-11-28 13:49] LABS: Barbiturates Screen,Urine Negative ng/ml (<200)
[2020-11-28 13:50] LABS: Amphetamine/Metha Screen,Urine Negative ng/ml (<1000); Benzodiazepines Screen,Urine Negative ng/ml (<200)
[2020-11-28 13:51] LABS: Cocaine Screen,Urine Negative ng/ml (<300)
[2020-11-28 13:52] LABS: Cannabinoid Screen,Urine Positive ng/ml (<50); Methadone Screen,Urine Negative ng/ml (<300)
[2020-11-28 13:53] LABS: Opiate Screen,Urine Negative ng/ml (<300)
[2020-11-28 13:54] LABS: Phencyclidine Screen,Urine Negative ng/ml (<25)
[2020-11-28 13:56] LABS: Acetone, Serum (Rapid) Moderate (None Detect)
[2020-11-28 13:59] LABS: Troponin I < 0.01 ng/ml (0.00-0.034)
[2020-11-28 14:07] VITALS: BP 132/69; PULSE 86; RESP 22; O2SAT 96
--- NOTE | 2020-11-28 14:15 | PC.NURSE ---
Spoke with MD to clarify orders and he advised he wanted 12 units of insulin given but did not want thew drip started at this time
[2020-11-28 14:46] LABS: VBG Base Excess -6.5 mmol/L (-2.4-2.3); VBG HCO3 19.1 mmol/L (23-30); VBG PCO2 35.3 mmol/L (35-51); VBG PH 7.35 mmol/L (7.31-7.41); VBG PO2 92.4 mmol/L (28-40); VBG Total CO2 20.2 mmol/L (23-27)
[2020-11-28 14:51] LABS: Lactic Acid 0.9 mmol/L (0.7-2.1)
[2020-11-28 15:00] VITALS: BP 140/110; PULSE 82; RESP 18; O2SAT 96
--- NOTE | 2020-11-28 15:16 | ECG_ITS ---
APPROVED REPORT Exam: Resting ECG HR:79 bpm ECG Measurements Heart Rate 79 AXES LA 192 P 40 QRSd 86 QRS 36 QT 392 T 7 QTc 449 Conclusion Normal sinus rhythm Isolated Q in iii late r wave progression Abnormal ECG Electronically signed by : Km Reynaga, 11/28/2020 19:20:11
--- NOTE | 2020-11-28 15:37 | HMH.EDGENADL ---
ED Disposition Clinical Impression: Hyperglycemia due to type 1 diabetes mellitus Disposition: Home, Self-Care Condition on Discharge: Fair Instructions: DI for Hyperglycemia -- Adult Additional Instructions: Your blood sugar was initially elevated however it did come down with insulin; we have given you IV fluids; It does not appear that you have diabetic ketoacidosis; plan is to give you IV fluids and discharge you home; please continue to be compliant with your medications especially insulin; will give you also medications for back pain Prescriptions: Ibuprofen [Motrin 600mg Tablet] 600 mg PO Q6HP PRN #20 tab PRN Reason: Mild To Moderate Pain Prescription Printed Cyclobenzaprine HCl [Flexeril 10mg tablet] 10 mg PO Q8H PRN 10 Days #30 tab PRN Reason: Muscle Spasm Prescription Printed Referrals: Srini Ayala MD [Primary Care Provider] - Time of Disposition: 16:52 - Critical Care Critical Care Time: No Attestation: On 11/28/20, the high probability of a clinically significant, sudden or life threatening deterioration of the following system(s) required my full and direct attention, intervention and personal management. The time I documented below is in addition to time spent performing reported procedures but includes the following listed in this critical care notation. Medical Decision Making - Medical Records Medical records reviewed: Yes: I reviewed the patient's medical records. MR Comment: This is a 30-year-old female here with a complaint that her blood sugar is quite high and she cannot get it down she says her acetone level was also elevated also complained that she had nausea and vomiting she is a known type I diabetic and known to be noncompliant; also complained of chronic back pain. Labs have been reviewed and shows a blood sugar of 589 electrolytes are essentially normal including anion gap which is 11.65 urine analysis is normal urine drug screen is negative except for marijuana; vital signs are stable; ABG shows a pH of 7.35; lactate is within normal limits at 0.9 acetone shows moderate elevation; been given 12 units of insulin we are also giving her 2 L of IV fluids plan is to discharge her home; for her back pain she has been given Toradol - Jamari Inquiry Pt receiving controlled substance: No Vital Signs: 11/28/20 12:36 11/28/20 14:07 Temperature 98.5 F Temperature Source Oral Pulse Rate [Right] 76 86 Respiratory Rate 16 22 Blood Pressure [Right Arm] 140/72 132/69 Blood Pressure Mean [Right Arm] 94 90 Blood Pressure Source [Right Arm] Automatic Cuff Automatic Cuff Blood Pressure Position [Right Arm] Sitting Sitting 02 Sat by Pulse Oximetry 96 96 Oxygen Delivery Method Room Air - Lab Data Lab results reviewed: Yes: I reviewed the patient's lab results. Lab Results 11/28/20 13:20: Urine Color Yellow, Urine Appearance Clear, Urine pH 7.0, Ur Specific [place] <= 1.005, Urine Protein Negative, Urine Glucose (UA) 3+, Urine Ketones 1+, Urine Blood Negative, Urine Nitrate Negative, Urine Bilirubin Negative, Urine Urobilinogen 0.2, Ur Leukocyte Esterase Negative, Urine RBC Occasional, Urine WBC None, Ur Squamous Epith Cells Occasional, Urine Bacteria None 11/28/20 13:20: WBC 10.0, RBC 4.62, Hgb 12.1 L, Hct 38.3, MCV 82.8, MCH 26.3 L, MCHC 31.7 L, RDW 15.4, Plt Count 306, MPV 8.2, Neut % (Auto) 79.0, Lymph % (Auto) 16.2, [place] % (Auto) 3.4, Eos % (Auto) 1.0, Baso % (Auto) 0.5, Neut # (Auto) 7.9 H, Lymph # (Auto) 1.6, [place] # (Auto) 0.3, Eos # (Auto) 0.1, Baso # (Auto) 0.1 11/28/20 13:20: Sodium 130 L, Potassium 4.5, Chloride 98, Carbon Dioxide 25, Anion Gap 11.5, BUN 15, Creatinine 0.50 L, Estimated Creat Clear 238, Estimated GFR 146, Est GFR ( Amer) 177, Glucose 589 H*, Calcium 9.3, Total Bilirubin 0.4, AST 28, ALT 21, Alkaline Phosphatase 233 H, Total Protein 7.5, Albumin 4.0, Globulin 3.5 H, Albumin/Globulin Ratio 1.1, Lipase 170 11/28/20 13:20: Troponin I < 0.01, Acetone Level
[2020-11-28 16:00] VITALS: BP 133/66; PULSE 81; RESP 18; O2SAT 96
[2020-11-28 16:17] VITALS: BP 133/60; PULSE 80; RESP 16; TEMP 36.8; O2SAT 98
[2020-11-29 06:30] LABS: POC Glucose,Bedside 576 (70-110)
[2020-12-02 06:54] LABS: POC Glucose,Bedside 452 (70-110)
== END 2020-11-28 16:18 | disposition home or self-care (01) ==
PROVIDERS: Emergency Provider Emergency Medicine; PCP Internal Medicine Adolescent Medicine
DX: E10.65 Type 1 diabetes mellitus with hyperglycemia (principal); Z79.4 Long term (current) use of insulin; F33.1 Major depressive disorder, recurrent, moderate; Z88.2 Allergy status to sulfonamides; F17.210 Nicotine dependence, cigarettes, uncomplicated; Z90.79 Acquired absence of other genital organ(s); Z79.899 Other long term (current) drug therapy
CPT/HCPCS: 80053; 80305; 81001; 81025; 82009; 82803; 82962; 83605; 83690; 84484; 85025; 93005; 96365; 96366; 96375; 99283

== ENCOUNTER 2021-01-05 14:06 | Inpatient (IN) | payer OTHER, SELFPAY ==
[2021-01-05] VITALS (10 sets, daily range): BP systolic 110–138; BP diastolic 63–97; PULSE 81–117; RESP 17–20; TEMP 36.7–36.9; O2SAT 94–98; BMI 36.1; BMI 35.3
--- NOTE | 2021-01-05 14:11 | HMH.EDGENADL ---
ED Disposition Clinical Impression: Diabetic ketoacidosis Qualifiers: Diabetes mellitus type: type 1 Diabetes mellitus complication detail: without coma Qualified Code(s): E10.10 - Type 1 diabetes mellitus with ketoacidosis without coma Disposition: Admitted As Inpatient Condition on Discharge: Fair Referrals: Srini Ayala MD [Primary Care Provider] - - Critical Care Critical Care Time: No Attestation: On , the high probability of a clinically significant, sudden or life threatening deterioration of the following system(s) required my full and direct attention, intervention and personal management. The time I documented below is in addition to time spent performing reported procedures but includes the following listed in this critical care notation. Medical Decision Making - Medical Records Medical records reviewed: Yes: I reviewed the patient's medical records. - Jamari Inquiry Pt receiving controlled substance: No Vital Signs: 01/05/21 14:07 01/05/21 14:49 01/05/21 16:09 Temperature 98.5 F Temperature Source Oral Pulse Rate [Left Radial] 98 H 97 H 98 H Respiratory Rate 20 Blood Pressure [Right Arm] 138/97 H 135/91 H 120/84 Blood Pressure Mean [Right Arm] 110 105 96 Blood Pressure Source [Right Arm] Automatic Cuff Automatic Cuff Automatic Cuff Blood Pressure Position [Right Arm] Sitting Sitting Sitting 02 Sat by Pulse Oximetry 98 97 97 Oxygen Delivery Method Room Air Room Air Room Air 01/05/21 17:26 Temperature Temperature Source Pulse Rate [Left Radial] 95 H Respiratory Rate Blood Pressure [Right Arm] 120/84 Blood Pressure Mean [Right Arm] 96 Blood Pressure Source [Right Arm] Automatic Cuff Blood Pressure Position [Right Arm] Sitting 02 Sat by Pulse Oximetry 96 Oxygen Delivery Method Room Air - Lab Data Lab Results 01/05/21 14:14: Urine Color Yellow, Urine Appearance Clear, Urine pH 5.5, Ur Specific [place] >= 1.030, Urine Protein Negative, Urine Glucose (UA) 2+, Urine Ketones 3+, Urine Blood Negative, Urine Nitrate Negative, Urine Bilirubin Negative, Urine Urobilinogen 0.2, Ur Leukocyte Esterase Negative, Urine RBC None, Urine WBC None, Ur Squamous Epith Cells 10-20, Amorphous Sediment 1+, Urine Bacteria None 01/05/21 14:15: WBC 13.7 H, RBC 4.86, Hgb 12.5, Hct 38.8, MCV 79.9 L, MCH 25.7 L, MCHC 32.1, RDW 14.8, Plt Count 324, MPV 8.7, Neut % (Auto) 84.3 H, Lymph % (Auto) 11.9, [place] % (Auto) 2.8, Eos % (Auto) 0.5, Baso % (Auto) 0.5, Neut # (Auto) 11.6 H, Lymph # (Auto) 1.6, [place] # (Auto) 0.4, Eos # (Auto) 0.1, Baso # (Auto) 0.1 01/05/21 14:15: Sodium 133 L, Potassium 4.1, Chloride 100, Carbon Dioxide 16 L, Anion Gap 21.1 H, BUN 11, Creatinine 0.50 L, Estimated Creat Clear 243, Estimated GFR 146, Est GFR ( Amer) 177, Glucose 368 H, Calcium 9.7, Total Bilirubin 0.5, AST 24, ALT 21, Alkaline Phosphatase 238 H, Total Protein 8.7 H, Albumin 4.5, Globulin 4.2 H, Albumin/Globulin Ratio 1.1 01/05/21 14:15: Lactate 1.6 01/05/21 14:15: Acetone Level Large 01/05/21 14:15: Serum HCG, Qual Negative 01/05/21 14:34: VBG pH 7.34, VBG pCO2 31.9 L, VBG pO2 51.2 H, VBG HCO3 16.7 L, VBG Total CO2 17.6 L, VBG O2 Saturation 85.1 H, VBG Base Excess -9.2 L Result diagrams: 01/05/21 14:15 01/05/21 14:15 Orders (Tests/Meds): ED MEDICATIONS Generic Name Dose Route Start Last Admin Trade Name Freq PRN Reason Stop Dose Admin Insulin Human Regular 100 unit 101 mls @ 9.346 mls/hr 01/05/21 16:15 01/05/21 16:50 / Sodium Chloride IV 02/04/21 16:14 9.346 mls/hr .[id number] DALIA Administration Protocol 0.1 UNITS/KG/HR Potassium Chloride/Sodium Chloride 1,000 mls @ 150 mls/hr 01/05/21 16:15 Kcl 20 Meq In Ns 1,000 Ml Iv Soln IV 02/04/21 16:14 .[id number] DALIA Discontinued Medications Generic Name Dose Route Start Last Admin Trade Name Freq PRN Reason Stop Dose Admin Sodium Chloride 1,000 mls @ 999 mls/hr 01/05/21 14:45 01/05/21 15:22 Sod Chlor 0.9% 1000ml Bag IV 01/05/21 15:4
--- NOTE | 2021-01-05 14:31 | XR_ITS ---
PROCEDURE: XR CHEST 2V Referring Doctor: Gerard Hussein Patient Age:30Y CLINICAL HISTORY: cough possible DKA? The lungs are well expanded and clear with nothing definitely acute. PA and lateral chest COMPARISON: CT AGCHEST CT angio chest from 02/10/2019 CR XR CHEST PORTABLE from 07/13/2020 CR XR CHEST PORTABLE from 07/22/2020 CR XR CHEST PORTABLE from 08/09/2020 FINDINGS: PA and lateral chest performed today and compared to July and June 2020 CXR No significant change since previous studies Heart is normal in size with pulmonary vascularity normal to upper normal but remaining within normal limits. No pleural effusion, no no pneumothorax. No focal infiltrate. . Lungs appear well expanded and clear Port-A-Cath overlies right chest and enters from the right internal jugular. Stable position. Cholecystectomy noted at RUQ. Chest wall in T-spine appears satisfactory. No remarkable osseous findings.. IMPRESSION: Stable chest with nothing definitely acute Dictated by: Júnior Torres MD 01/05/2021 17:13 Júnior Torres MD in [place] 01/05/2021 17:13
[2021-01-05 14:41] LABS: Microscopic, Urine URINE MICROSCOPIC (MICROSCOPIC)
[2021-01-05 14:42] LABS: Basophils # 0.1 K/mm3 (0-0.2); Basophils % 0.5 % (0.1-2.0); Eosinophils # 0.1 K/mm3 (0.0-0.4); Eosinophils % 0.5 % (0.1-12.0); Hematocrit 38.8 % (37.0-47.0); Hemoglobin 12.5 g/dL (12.2-16.2); Lymphocytes # 1.6 K/mm3 (0.7-4.5); Lymphocytes % 11.9 % (10-50); Mean Corpuscular HGB Conc 32.1 g/dL (31.8-35.4); Mean Corpuscular Hemoglobin 25.7 pg (27.0-31.2); Mean Corpuscular Volume 79.9 fl (81-99); Mean Platelet Volume 8.7 fl (7.4-10.4); Monocytes # 0.4 K/mm3 (0.1-1.0); Monocytes % 2.8 % (1.7-9.3); Neutrophils # 11.6 K/mm3 (1.8-7.8); Neutrophils % 84.3 % (37.0-80.0); Platelet Count 324 K/mm3 (142-424); Red Blood Count 4.86 M/mm3 (4.20-5.40); Red Cell Distribution Width 14.8 % (11.5-17.5); White Blood Count 13.7 K/mm3 (4.8-10.8)
[2021-01-05 14:43] LABS: Chloride 100 mmol/L (98-107); Potassium 4.1 mmoL/L (3.5-5.1); Sodium 133 mmol/L (136-145)
[2021-01-05 14:43] LABS: Appearance,Urine CLEAR (Clear); Bilirubin,Urine Negative (Negative); Blood, Urine Negative (Negative); Color,Urine YELLOW (Yellow); Glucose,Urine (UA) 2+ (Negative); Ketones,Urine 3+ (Negative); Leukocyte Esterase,Urine Negative (Negative); Nitrate,Urine Negative (Negative); PH,Urine 5.5 (5.0-8.5); Protein,Urine Negative (Negative); Specific Gravity, Urine >= 1.030 (1.005-1.030); Urobilinogen,Urine 0.2 EU/dl (0.2)
[2021-01-05 14:44] LABS: VBG Base Excess -9.2 mmol/L (-2.4-2.3); VBG HCO3 16.7 mmol/L (23-30); VBG Oxygen Saturation 85.1 % (50-70); VBG PCO2 31.9 mmol/L (35-51); VBG PH 7.34 mmol/L (7.31-7.41); VBG PO2 51.2 mmol/L (28-40); VBG Total CO2 17.6 mmol/L (23-27)
--- NOTE | 2021-01-05 14:44 | ECG_ITS ---
APPROVED REPORT Exam: Resting ECG HR:94 bpm ECG Measurements Heart Rate 94 AXES GA 168 P 36 QRSd 86 QRS 19 QT 360 T 26 QTc 450 Conclusion Normal sinus rhythm Left atrial abnormality Poor r wave progression Isolated nonsig Q in III Abnormal ECG Electronically signed by : Km Reynaga, 01/06/2021 06:54:57
[2021-01-05 14:46] LABS: Alanine Aminotransferase 21 U/L (12-78); Albumin Level 4.5 g/dl (3.5-5.0); Albumin/Globulin Ratio 1.1 (1.1-1.8); Alkaline Phosphatase 238 U/L (38-126); Anion Gap 21.1 mEq/L (5-15); Aspartate Amino Transferase 24 U/L (14-36); Bilirubin,Total 0.5 mg/dl (0.2-1.3); Blood Urea Nitrogen 11 mg/dl (7-17); Calcium 9.7 mg/dl (8.4-10.2); Carbon Dioxide 16 mmol/L (22.0-30.0); Creatinine Clearance Estimated 243 mL/min (50-200); Estimated Glomerular Filt Rate 146 ml/min (>60); GFR (African American) 177 ML/MIN (>60); Globulin 4.2 g/dL (1.3-3.2); Glucose 368 mg/dl (74-100); Lactic Acid 1.6 mmol/L (0.7-2.1); Total Protein,Serum 8.7 g/dl (6.3-8.2)
[2021-01-05 14:47] LABS: Acetone, Serum (Rapid) Large (None Detect)
[2021-01-05 14:50] LABS: HCG Qualitative, Serum Negative (Negative)
[2021-01-05 14:53] LABS: Amorphous Sediment,Urine 1+ /lpf
--- NOTE | 2021-01-05 14:57 | PC.NURSE ---
Pt to rad
--- NOTE | 2021-01-05 18:48 | PC.NURSE ---
Insulin drip stopped, MD aware. Glucose reading 99. Pt sitting up in bed with no complaints at this time.
--- NOTE | 2021-01-05 18:51 | PC.NURSE ---
fsbs 98
--- NOTE | 2021-01-05 19:11 | PC.NURSE ---
PT ARRIVED TO FLOOR VIA W/C FROM ED W/STAFF AT 0910
[2021-01-05 19:56] LABS: Acetone, Serum (Rapid) None Detected (None Detect)
[2021-01-05 20:01] LABS: Anion Gap 14.3 mEq/L (5-15); Blood Urea Nitrogen 11 mg/dl (7-17); Calcium 9.7 mg/dl (8.4-10.2); Carbon Dioxide 20 mmol/L (22.0-30.0); Chloride 107 mmol/L (98-107); Creatinine Clearance Estimated 243 mL/min (50-200); Estimated Glomerular Filt Rate 146 ml/min (>60); GFR (African American) 177 ML/MIN (>60); Glucose 89 mg/dl (74-100); Potassium 3.3 mmoL/L (3.5-5.1); Sodium 138 mmol/L (136-145)
--- NOTE | 2021-01-05 20:16 | PC.NURSE ---
Pt arrived to floor off insulin gtt. FSBS obtained resulting 62. MD notified. New orders received. D5 NS @ 125 ml/hr. Obtain Serum acetone. Zofran 4 mg IV Q6 hr prn for nausea. Pt may have ice chips. Orders carried out. At 1955 FSBS obtained resulting 90. Acetone none detected. MD notified. New orders received. NS with 20 potassium meq @ 125 ml/hr. BMP and CBC in AM. Orders carried out. Pt is A&O x4 and resting in bed at this time. VSS. Call light within reach. Will continue to monitor.
[2021-01-05 20:34] LABS: POC Glucose,Bedside 90 (70-110)
[2021-01-05 20:34] LABS: POC Glucose,Bedside 62 (70-110)
[2021-01-05 21:52] LABS: POC Glucose,Bedside 80 (70-110)
--- NOTE | 2021-01-05 22:38 | PC.NURSE ---
FSBS obtained at 2145 resulting 80. Pt continues to c/o nausea and requests home medication. MD notified. New orders received. Pt placed on humalog medium intensity SS at this time. Phenergan 12.5 mg IV q4 hrs prn. Resume Gabapentin 300 mg PO TID, Oxcarbazepine 1200 mg BID, levetiracetam 2500 mg BID. Orders carried out.
[2021-01-06] VITALS: BP 107/66; PULSE 83; PULSE 90; RESP 17; O2SAT 95
[2021-01-06 00:21] LABS: POC Glucose,Bedside 86 (70-110)
[2021-01-06 01:00] VITALS: TEMP 36.6
[2021-01-06 02:00] VITALS: BP 135/84; PULSE 75; RESP 18; O2SAT 95
[2021-01-06 02:18] LABS: POC Glucose,Bedside 112 (70-110)
[2021-01-06 04:00] VITALS: BP 119/73; PULSE 79; PULSE 80; RESP 19; TEMP 36.6; O2SAT 95
[2021-01-06 05:03] LABS: POC Glucose,Bedside 252 (70-110)
[2021-01-06 05:03] LABS: POC Glucose,Bedside 98 (70-110)
[2021-01-06 05:03] LABS: POC Glucose,Bedside 205 (70-110)
[2021-01-06 06:00] VITALS: BP 120/71; PULSE 72; RESP 16; O2SAT 96; BMI 35.3
[2021-01-06 06:08] LABS: Basophils # 0.1 K/mm3 (0-0.2); Basophils % 1.1 % (0.1-2.0); Eosinophils # 0.1 K/mm3 (0.0-0.4); Hematocrit 34.8 % (37.0-47.0); Hemoglobin 10.8 g/dL (12.2-16.2); Lymphocytes # 1.7 K/mm3 (0.7-4.5); Lymphocytes % 30.7 % (10-50); Mean Corpuscular Hemoglobin 25.3 pg (27.0-31.2); Mean Corpuscular Volume 81.8 fl (81-99); Mean Platelet Volume 8.6 fl (7.4-10.4); Monocytes # 0.3 K/mm3 (0.1-1.0); Monocytes % 4.7 % (1.7-9.3); Neutrophils # 3.3 K/mm3 (1.8-7.8); Neutrophils % 61.5 % (37.0-80.0); Platelet Count 245 K/mm3 (142-424); Red Blood Count 4.25 M/mm3 (4.20-5.40); Red Cell Distribution Width 14.4 % (11.5-17.5); White Blood Count 5.4 K/mm3 (4.8-10.8)
[2021-01-06 06:09] LABS: Chloride 107 mmol/L (98-107); Sodium 134 mmol/L (136-145)
[2021-01-06 06:10] LABS: Potassium 4.4 mmoL/L (3.5-5.1)
[2021-01-06 06:13] LABS: Anion Gap 15.4 mEq/L (5-15); Blood Urea Nitrogen 9 mg/dl (7-17); Carbon Dioxide 16 mmol/L (22.0-30.0); Creatinine Clearance Estimated 237 mL/min (50-200); Estimated Glomerular Filt Rate 146 ml/min (>60); GFR (African American) 177 ML/MIN (>60)
[2021-01-06 06:14] LABS: Calcium 8.5 mg/dl (8.4-10.2); Glucose 250 mg/dl (74-100)
[2021-01-06 06:20] LABS: POC Glucose,Bedside 260 (70-110)
--- NOTE | 2021-01-06 06:46 | PC.NURSE ---
Spoke with this AM. New orders. May advance diet to clears. Pt may come out of Step Down.
--- NOTE | 2021-01-06 07:25 | HMH.PHAVTE ---
[facility] Pharmacy VTE Monitoring - Patient Demographics Admission date: 01/05/21 Report Date: 01/06/21 Time: 07:25 Allergies/Adverse Reactions: Patient Allergies buspirone [BUSPIRONE] Allergy (Severe, Verified 11/28/20 12:47) Seizure nitrofurantoin [NITROFURANTOIN] Allergy (Severe, Verified 11/28/20 12:47) Seizure sulfamethoxazole [From BACTRIM] Allergy (Severe, Verified 11/28/20 12:47) Seizure trimethoprim [From BACTRIM] Allergy (Severe, Verified 11/28/20 12:47) Seizure topiramate [From TOPAMAX] Allergy (Unknown, Verified 11/28/20 12:47) adhesive tape Adverse Reaction (Intermediate, Verified 11/28/20 12:47) SKIN IRRITATION Height: 1.6 m Weight: 90.492 kg Patient Problems: Current Active Problems Diabetic ketoacidosis (Acute) - VTE Risk Labs: VTE Related Lab Results Hgb 10.8 g/dL (12.2-16.2) L D 01/06/21 05:30 Hct 34.8 % (37.0-47.0) L 01/06/21 05:30 Plt Count 245 K/mm3 (142-424) 01/06/21 05:30 BUN 9 mg/dl (7-17) 01/06/21 05:30 Creatinine 0.50 mg/dl (0.52-1.04) L 01/06/21 05:30 Estimated Creat Clear 237 mL/min (50-200) 01/06/21 05:30 VTE Risk Level: Moderate Risk - Prophylaxis VTE Prophylaxis Ordered?: Yes Types of VTE Prophylaxis: TEDS Knee High Location of Applied Device: Bilateral Lower Extremeties
[2021-01-06 08:00] VITALS: BP 142/89; PULSE 80; PULSE 95; RESP 22; TEMP 36.6; O2SAT 99
--- NOTE | 2021-01-06 08:21 | HMH.HPDC ---
General - General Admission date:: 01/05/21 Discharge date: 01/06/21 *Admission Date: 01/05/21 *Chief complaint: Vomiting and hyperglycemia *History of present illness: Patient 30-year-old female presenting with hyperglycemia and generalized malaise. BGL in the 360s on arrival. Work-up initiated to rule out DKA. Patient does have an anion gap metabolic acidosis consistent with DKA. No infectious etiology noted on urinalysis or chest x-ray. This could be medication related. Patient given a bolus on arrival to the emergency department and DKA protocol will be initiated with appropriate electrolyte repletion per protocol. I shared this plan with patient and she is in agreement. I reached out to on-call provider discussed this case carefully. After careful discussion we have agreed patient will be admitted for further work-up and treatment. Above note per emergency room physician. Of note patient had appointment in our office 3 days ago and missed it because she was nauseated. Nausea accelerated through the last couple of days and culminated in her arrival to the emergency department. She was admitted for fluids and ongoing management. [facility] History I have reviewed the patient's past medical history: Yes Medical History: Reports:: Arrhythmia, Deep Vein Thrombosis, Depression, Diabetes Mellitus Type 1, MRSA, Palpitations, Pulmonary Embolism, Seizures Denies:: Cancer, Diabetes Mellitus Type 2, Internal Pacemaker *Have you ever received a pneumonia vaccine?: Yes *Have you received a flu vaccine this season?: Yes Other Medical History: Reports: Anemia, Hypothyroidism, Other. Denies: Blood Transfusion Reaction Laterality Cases: Bilateral: Other Other Surgeries: Yes: Appendectomy, Cholecystectomy, Dilation and Curettage, Hysterectomy-Partial ( everything but left ovary ), Tubal Ligation, Other (ablation). No: Pacemaker Amputation: No Fractures: No - *Social History Smoking Status: Current every day smoker Tobacco Type: cigarettes # Packs/Day (cigarettes): 1 #Yrs smoked (if former smoker): 4 Alcohol Intake: current Alcohol Intake Frequency:: holidays/special occasions only Substance Use Type: former substance user *Occupational Status:: disabled Housing: house Household Members: friend(s) *Travel in the last 8 weeks: None - Psychiatric History Pschychiatric History:: Reports:: Depression Family Hx:: Unable to obtain Review of Systems - Review of Systems Review of systems:: pertinent systems reviewed and negative unless documented below Review of systems negative except for nausea, patient notes that she is able to hold down clear liquids this morning and feels better. Exam Vital signs and Labs for Last 24 Hours: Temp Pulse Resp BP Pulse Ox 97.9 F 95 H 22 142/89 H 99 01/06/21 08:00 01/06/21 08:00 01/06/21 08:00 01/06/21 08:00 01/06/21 08:00 Laboratory Results - last 24 hr 01/05/21 14:14: Urine Color Yellow, Urine Appearance Clear, Urine pH 5.5, Ur Specific [place] >= 1.030, Urine Protein Negative, Urine Glucose (UA) 2+, Urine Ketones 3+, Urine Blood Negative, Urine Nitrate Negative, Urine Bilirubin Negative, Urine Urobilinogen 0.2, Ur Leukocyte Esterase Negative, Urine RBC None, Urine WBC None, Ur Squamous Epith Cells 10-20, Amorphous Sediment 1+, Urine Bacteria None 01/05/21 14:15: WBC 13.7 H, RBC 4.86, Hgb 12.5, Hct 38.8, MCV 79.9 L, MCH 25.7 L, MCHC 32.1, RDW 14.8, Plt Count 324, MPV 8.7, Neut % (Auto) 84.3 H, Lymph % (Auto) 11.9, [place] % (Auto) 2.8, Eos % (Auto) 0.5, Baso % (Auto) 0.5, Neut # (Auto) 11.6 H, Lymph # (Auto) 1.6, [place] # (Auto) 0.4, Eos # (Auto) 0.1, Baso # (Auto) 0.1 01/05/21 14:15: Sodium 133 L, Potassium 4.1, Chloride 100, Carbon Dioxide 16 L, Anion Gap 21.1 H, BUN 11, Creatinine 0.50 L, Estimated Creat Clear 243, Estimated GFR 146, Est GFR ( Amer) 177, Glucose 368 H, Calcium 9.7, Total Bilirubin 0.5, AST 24, ALT 21, Alkaline Phosphatase 238 H, Total Protein 8.7 H, Albumin 4.5, Globulin
--- NOTE | 2021-01-06 10:15 | PC.NURSE ---
Discharge teaching provided. Questions encouraged and answered. Pt. v/u. Discharge paperwork signed by pt. and this nurse.
--- NOTE | 2021-01-06 10:18 | PC.NURSE ---
Portacath flushed with heparin flush per protocol. Portacath removed and bandaid in place. Pt. tolerated well.
[2021-01-06 11:14] LABS: POC Glucose,Bedside 359 (70-110)
[2021-02-19 11:07] LABS: POC Glucose,Bedside 352 (70-110)
== END 2021-01-06 11:32 | disposition home or self-care (01) | DRG 639 ==
LOC: ER 15:20 → 2ND 18:07
PROVIDERS: Admitting Provider Family Medicine; Emergency Provider Emergency Medicine; PCP Internal Medicine Adolescent Medicine; Visit Provider Internal Medicine Adolescent Medicine
DX: E10.10 Type 1 diabetes mellitus with ketoacidosis without coma (principal); Z72.0 Tobacco use; Z79.4 Long term (current) use of insulin; Z88.8 Allergy status to other drugs, medicaments and biological substances
CPT/HCPCS: 36415; 71046; 80048; 80053; 81001; 82009; 82803; 82962; 83605; 84703; 85025; 87040; 93005; 96365; 96367; 99284; J1642; J2405; U0003

== ENCOUNTER 2021-03-24 12:59 | Outpatient (CLI) | payer OTHER, SELFPAY ==
[2021-03-24 13:30] LABS: Chloride 96 mmol/L (98-107); Potassium 4.2 mmoL/L (3.5-5.1); Sodium 129 mmol/L (136-145)
[2021-03-24 13:33] LABS: Anion Gap 16.2 mEq/L (5-15); Blood Urea Nitrogen 8 mg/dl (7-17); Carbon Dioxide 21 mmol/L (22.0-30.0); Estimated Glomerular Filt Rate 189 ml/min (>60); GFR (African American) 228 ML/MIN (>60)
[2021-03-24 13:34] LABS: Calcium 9.6 mg/dl (8.4-10.2); Glucose 345 mg/dl (74-100)
--- NOTE | 2021-03-24 13:45 | MR_ITS ---
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 Pt has epilepsy. 19ml prohance given. Lot:[id number] exp:Jun 2023 bun:8 cre:0.4 gfr:189. Prior CT 11/30/19. COMPARISON: CT CT HEAD/BRAIN WO CON from 11/30/2019 TECHNIQUE: Routine multiplanar multi echo sequences are performed without gadolinium enhancement. Exam supplemented with dynamic post enhanced thin-section post enhanced images of the pituitary fossa. FINDINGS: There is report is delayed waiting on outside films and reports for comparison. Outside exams and report has not been made available as 04/01/2021. No midline shift, mass effect, intracranial hemorrhage, or hydrocephalus is evident. The cerebellopontine angles, cerebellum, and brainstem have an unremarkable appearance. There are post craniotomy changes in the right frontal and temporal parietal region. There are encephalomalacia changes in the right temporal lobe. No evidence of acute infarction. No enhancing lesions. The pituitary stalk is slightly deviated toward the left with focal T1 hyperintensity at the base of the stalk which is slightly enlarged at 4 x 5 mm. No intrinsic pituitary masses are apparent.. There is history of previous pituitary surgery. No enhancing lesions are evident. IMPRESSION: 1. No acute intracranial findings. 2. Prominent lobular hyperintense base of the pituitary stalk. This is of questionable clinical significance. Correlation with old films needed to determine stability. Dictated by: Agustin Yu MD 04/01/2021 08:45 Agustin Yu MD in [place] 04/01/2021 08:45
[2021-03-28 16:45] LABS: Levetiracetam (Keppra) 53.4
== END 2021-03-24 15:15 | disposition home or self-care (01) ==
PROVIDERS: PCP Internal Medicine Adolescent Medicine; Visit Provider Specialist
DX: R56.9 Unspecified convulsions (principal); G40.909 Epilepsy, unspecified, not intractable, without status epilepticus
CPT/HCPCS: 36415; 70553; 80048; 80177; 96523; A9576; J1642

== ENCOUNTER → 2021-03-31 09:21 | Outpatient (CLI) | payer OTHER, SELFPAY ==
[2021-03-31 10:36] LABS: Coronavirus 19 IgG Antibody Negative (Negative); Coronavirus 19 IgM Antibody Negative (Negative)
== END ==
PROVIDERS: Visit Provider Nurse Practitioner Family
DX: Z01.812 Encounter for preprocedural laboratory examination (principal)
CPT/HCPCS: 36415; 86328

== ENCOUNTER → 2021-04-01 20:23 | Outpatient (CLI) | payer OTHER, SELFPAY | PROVIDERS: PCP Internal Medicine Adolescent Medicine; Visit Provider Nurse Practitioner Family | DX: G47.33 Obstructive sleep apnea (adult) (pediatric) (principal); R40.0 Somnolence | CPT/HCPCS: 95810 ==

== ENCOUNTER → 2021-04-22 09:16 | Outpatient (CLI) | payer OTHER, SELFPAY ==
[2021-04-22 14:11] LABS: Chloride 98 mmol/L (98-107); Potassium 4.6 mmoL/L (3.5-5.1); Sodium 133 mmol/L (136-145)
[2021-04-22 14:13] LABS: Blood Urea Nitrogen 13 mg/dl (7-17); Estimated Glomerular Filt Rate 145 ml/min (>60); GFR (African American) 175 ML/MIN (>60)
[2021-04-22 14:14] LABS: Alanine Aminotransferase 15 U/L (12-78); Albumin Level 4.4 g/dl (3.5-5.0); Albumin/Globulin Ratio 1.3 (1.1-1.8); Alkaline Phosphatase 208 U/L (38-126); Anion Gap 15.6 mEq/L (5-15); Aspartate Amino Transferase 22 U/L (14-36); Bilirubin,Total 0.4 mg/dl (0.2-1.3); Calcium 9.2 mg/dl (8.4-10.2); Carbon Dioxide 24 mmol/L (22.0-30.0); Globulin 3.4 g/dL (1.3-3.2); Glucose 326 mg/dl (74-100); Total Protein,Serum 7.8 g/dl (6.3-8.2)
[2021-04-22 14:29] LABS: Hemoglobin A1C 9.6 % (4.0-6.0)
[2021-04-22 14:33] LABS: Basophils # 0.1 K/mm3 (0-0.2); Basophils % 0.9 % (0.1-2.0); Eosinophils # 0.1 K/mm3 (0.0-0.4); Eosinophils % 1.6 % (0.1-12.0); Hematocrit 37.9 % (37.0-47.0); Hemoglobin 12.1 g/dL (12.2-16.2); Lymphocytes # 1.6 K/mm3 (0.7-4.5); Lymphocytes % 21.7 % (10-50); Mean Corpuscular HGB Conc 31.9 g/dL (31.8-35.4); Mean Corpuscular Hemoglobin 24.6 pg (27.0-31.2); Mean Corpuscular Volume 77.3 fl (81-99); Mean Platelet Volume 9.8 fl (7.4-10.4); Monocytes # 0.3 K/mm3 (0.1-1.0); Monocytes % 4.3 % (1.7-9.3); Neutrophils # 5.2 K/mm3 (1.8-7.8); Neutrophils % 71.5 % (37.0-80.0); Platelet Count 348 K/mm3 (142-424); White Blood Count 7.3 K/mm3 (4.8-10.8)
== END ==
PROVIDERS: Visit Provider Internal Medicine Adolescent Medicine
DX: E10.65 Type 1 diabetes mellitus with hyperglycemia (principal); I10 Essential (primary) hypertension; Z79.4 Long term (current) use of insulin
CPT/HCPCS: 36415; 80053; 83036; 85025

== ENCOUNTER 2021-05-20 16:39 | Emergency (ER) | payer OTHER, SELFPAY ==
[2021-05-20 16:41] VITALS: BP 125/95; PULSE 104; RESP 16; TEMP 37; O2SAT 98; BMI 36.5
[2021-05-20 16:42] VITALS: BMI 36.5
[2021-05-20 17:13] LABS: Microscopic, Urine URINE MICROSCOPIC (MICROSCOPIC)
[2021-05-20 17:17] LABS: Appearance,Urine CLEAR (Clear); Bilirubin,Urine Negative (Negative); Blood, Urine Negative (Negative); Color,Urine YELLOW (Yellow); Glucose,Urine (UA) 3+ (Negative); Ketones,Urine Negative (Negative); Leukocyte Esterase,Urine Negative (Negative); Nitrate,Urine Negative (Negative); Protein,Urine Negative (Negative); Specific Gravity, Urine 1.015 (1.005-1.030); Urine Pregnancy, HCG Qual. Negative (Negative); Urobilinogen,Urine 0.2 EU/dl (0.2)
--- NOTE | 2021-05-20 17:20 | HMH.EDGENADL ---
ED Disposition Clinical Impression: Paresthesias, Hyponatremia Disposition: Home, Self-Care Condition on Discharge: Good Additional Instructions: Call Dr. Sawyer tomorrow for further care. Return to the emergency department if seizures occur. Referrals: Srini Ayala MD [Primary Care Provider] - - Critical Care Critical Care Time: No Attestation: On 05/20/21, the high probability of a clinically significant, sudden or life threatening deterioration of the following system(s) required my full and direct attention, intervention and personal management. The time I documented below is in addition to time spent performing reported procedures but includes the following listed in this critical care notation. Medical Decision Making - Medical Records Medical records reviewed: Yes: I reviewed the patient's medical records. MR Comment: Reviewed most recent neurology note from Dr. Saywer. The patient has diagnosis of seizure disorder and pseudoseizures. The aura that the patient describes is confirmed in Dr. Sawyer's notes. Reviewed recent MRI brain report. - Jamari Inquiry Pt receiving controlled substance: Yes Jamari was queried for this patient: Yes Risks and benefits of using a controlled substance: were discussed with pt by me Vital Signs: 05/20/21 16:41 05/20/21 18:31 05/20/21 19:00 Temperature 98.6 F Temperature Source Oral Pulse Rate 105 H 117 H Pulse Rate [Radial] 104 H Respiratory Rate 16 16 17 Blood Pressure 120/85 128/87 Blood Pressure [Right Arm] 125/95 H Blood Pressure Mean 96 Blood Pressure Mean [Right Arm] 105 Blood Pressure Source Blood Pressure Position Blood Pressure Position [Right Arm] Sitting 02 Sat by Pulse Oximetry 98 100 Oxygen Delivery Method Room Air 05/20/21 19:30 05/20/21 19:46 Temperature 98.2 F Temperature Source Oral Pulse Rate 111 H 72 Pulse Rate [Radial] Respiratory Rate 12 15 Blood Pressure 123/83 123/75 Blood Pressure [Right Arm] Blood Pressure Mean Blood Pressure Mean [Right Arm] Blood Pressure Source Automatic Cuff Blood Pressure Position Sitting Blood Pressure Position [Right Arm] 02 Sat by Pulse Oximetry 99 Oxygen Delivery Method Room Air - Lab Data Lab Results 05/20/21 17:00: Urine Color Yellow, Urine Appearance Clear, Urine pH 8.0, Ur Specific [place] 1.015, Urine Protein Negative, Urine Glucose (UA) 3+, Urine Ketones Negative, Urine Blood Negative, Urine Nitrate Negative, Urine Bilirubin Negative, Urine Urobilinogen 0.2, Ur Leukocyte Esterase Negative, Urine RBC 3-5, Urine WBC None, Ur Squamous Epith Cells 3-5, Urine Bacteria None, Urine Yeast 2+ 05/20/21 17:00: Urine HCG, Qual Negative 05/20/21 17:41: POC Glucose 81 05/20/21 18:00: WBC 10.4, RBC 4.95, Hgb 12.5, Hct 35.6 L, MCV 72.0 L, MCH 25.3 L, MCHC 35.1, RDW 16.3, Plt Count 432 H, MPV 7.6, Neut % (Auto) 68.0, Lymph % (Auto) 26.1, [place] % (Auto) 4.0, Eos % (Auto) 1.1, Baso % (Auto) 0.7, Neut # (Auto) 7.1, Lymph # (Auto) 2.7, [place] # (Auto) 0.4, Eos # (Auto) 0.1, Baso # (Auto) 0.1 05/20/21 18:00: Sodium 127 L, Potassium 3.6, Chloride 92 L, Carbon Dioxide 23, Anion Gap 15.6 H, BUN 8, Creatinine 0.40 L, Estimated Creat Clear 303 H, Estimated GFR 187, Est GFR ( Amer) 227, Glucose 84, Calcium 9.3, Total Bilirubin 0.3, AST 28, ALT 26, Alkaline Phosphatase 211 H, Troponin I < 0.01, Total Protein 8.7 H, Albumin 4.7, Globulin 4.0 H, Albumin/Globulin Ratio 1.2 05/20/21 19:30: POC Glucose 92 Result diagrams: 05/20/21 18:00 05/20/21 18:00 Orders (Tests/Meds): ED MEDICATIONS Generic Name Dose Route Start Last Admin Trade Name Freq PRN Reason Stop Dose Admin Sodium Chloride 10 ml 05/20/21 17:37 Sodium Chloride 0.9% 10ml Vial IV 06/19/21 17:36 NEEDED PRN to Dilute Lorazepam inj Sodium Chloride 10 ml 05/20/21 19:04 Sodium Chloride 0.9% 10ml Vial IV 06/19/21 19:03 NEEDED PRN to Dilute Lorazepam inj Discontinued Medications Gen
--- NOTE | 2021-05-20 17:41 | ECG_ITS ---
APPROVED REPORT Exam: Resting ECG HR:101 bpm ECG Measurements Heart Rate 101 AXES VA 196 P 29 QRSd 88 QRS 2 QT 340 T 25 QTc 440 Conclusion Sinus tachycardia Old anterior changes and previously noted nonsignificant Q-wave in lead III Abnormal ECG Electronically signed by : Km Reynaga, 05/21/2021 17:39:08
[2021-05-20 18:06] LABS: Basophils # 0.1 K/mm3 (0-0.2); Basophils % 0.7 % (0.1-2.0); Eosinophils # 0.1 K/mm3 (0.0-0.4); Eosinophils % 1.1 % (0.1-12.0); Hematocrit 35.6 % (37.0-47.0); Hemoglobin 12.5 g/dL (12.2-16.2); Lymphocytes # 2.7 K/mm3 (0.7-4.5); Lymphocytes % 26.1 % (10-50); Mean Corpuscular HGB Conc 35.1 g/dL (31.8-35.4); Mean Corpuscular Hemoglobin 25.3 pg (27.0-31.2); Mean Platelet Volume 7.6 fl (7.4-10.4); Monocytes # 0.4 K/mm3 (0.1-1.0); Neutrophils # 7.1 K/mm3 (1.8-7.8); Platelet Count 432 K/mm3 (142-424); Red Blood Count 4.95 M/mm3 (4.20-5.40); Red Cell Distribution Width 16.3 % (11.5-17.5); White Blood Count 10.4 K/mm3 (4.8-10.8)
[2021-05-20 18:07] LABS: Yeast,Urine 2+ /lpf
[2021-05-20 18:15] LABS: POC Glucose,Bedside 81 (70-110)
[2021-05-20 18:21] LABS: Chloride 92 mmol/L (98-107)
[2021-05-20 18:22] LABS: Potassium 3.6 mmoL/L (3.5-5.1); Sodium 127 mmol/L (136-145)
[2021-05-20 18:24] LABS: Alanine Aminotransferase 26 U/L (12-78); Aspartate Amino Transferase 28 U/L (14-36); Blood Urea Nitrogen 8 mg/dl (7-17); Creatinine Clearance Estimated 303 mL/min (50-200); Estimated Glomerular Filt Rate 187 ml/min (>60); GFR (African American) 227 ML/MIN (>60)
[2021-05-20 18:25] LABS: Albumin Level 4.7 g/dl (3.5-5.0); Albumin/Globulin Ratio 1.2 (1.1-1.8); Alkaline Phosphatase 211 U/L (38-126); Anion Gap 15.6 mEq/L (5-15); Bilirubin,Total 0.3 mg/dl (0.2-1.3); Calcium 9.3 mg/dl (8.4-10.2); Carbon Dioxide 23 mmol/L (22.0-30.0); Glucose 84 mg/dl (74-100); Total Protein,Serum 8.7 g/dl (6.3-8.2)
[2021-05-20 18:31] VITALS: BP 120/85; PULSE 105; RESP 16
[2021-05-20 18:40] LABS: Troponin I < 0.01 ng/ml (0.00-0.034)
[2021-05-20 19:00] VITALS: BP 128/87; PULSE 117; RESP 17; O2SAT 100
[2021-05-20 19:30] VITALS: BP 123/83; PULSE 111; RESP 12; O2SAT 99
[2021-05-20 19:37] LABS: POC Glucose,Bedside 92 (70-110)
[2021-05-20 19:46] VITALS: BP 123/75; PULSE 72; RESP 15; TEMP 36.8; O2SAT 99
== END 2021-05-20 20:10 | disposition home or self-care (01) ==
PROVIDERS: Emergency Provider Emergency Medicine; PCP Internal Medicine Adolescent Medicine
DX: G40.801 Other epilepsy, not intractable, with status epilepticus (principal); R20.2 Paresthesia of skin; E87.6 Hypokalemia; F41.8 Other specified anxiety disorders; E10.65 Type 1 diabetes mellitus with hyperglycemia; I10 Essential (primary) hypertension; E03.9 Hypothyroidism, unspecified; Z79.899 Other long term (current) drug therapy
CPT/HCPCS: 80053; 80177; 81001; 81025; 82962; 84484; 85025; 93005; 96365; 96375; 96376; 99283; J1642

== ENCOUNTER 2021-06-30 14:31 | Observation (INO) | payer OTHER, SELFPAY ==
[2021-06-30] VITALS (13 sets, daily range): BP systolic 114–138; BP diastolic 75–98; PULSE 82–105; RESP 16–25; TEMP 36.8–37; O2SAT 94–98; BMI 32.5; BMI 36.1
--- NOTE | 2021-06-30 14:33 | PC.NURSE ---
Covid results called by Ilya in lab
[2021-06-30 14:42] LABS: POC Glucose,Bedside 393 (70-110)
--- NOTE | 2021-06-30 14:59 | PC.NURSE ---
Pt ambulated to bathroom with x1 staff assist
[2021-06-30 15:10] LABS: Microscopic, Urine URINE MICROSCOPIC (MICROSCOPIC)
[2021-06-30 15:10] LABS: Alanine Aminotransferase 19 U/L (12-78); Albumin Level 4.6 g/dl (3.5-5.0); Albumin/Globulin Ratio 1.1 (1.1-1.8); Alkaline Phosphatase 224 U/L (38-126); Anion Gap 20.5 mEq/L (5-15); Aspartate Amino Transferase 24 U/L (14-36); Basophils # 0.1 K/mm3 (0-0.2); Basophils % 0.9 % (0.1-2.0); Bilirubin,Total 0.6 mg/dl (0.2-1.3); Blood Urea Nitrogen 11 mg/dl (7-17); Calcium 9.2 mg/dl (8.4-10.2); Carbon Dioxide 20 mmol/L (22.0-30.0); Chloride 97 mmol/L (98-107); Creatinine Clearance Estimated 181 mL/min (50-200); Eosinophils # 0.1 K/mm3 (0.0-0.4); Estimated Glomerular Filt Rate 117 ml/min (>60); GFR (African American) 142 ML/MIN (>60); Globulin 4.1 g/dL (1.3-3.2); Hematocrit 40.2 % (37.0-47.0); Hemoglobin 13.3 g/dL (12.2-16.2); Lymphocytes # 1.9 K/mm3 (0.7-4.5); Mean Corpuscular Hemoglobin 25.5 pg (27.0-31.2); Mean Corpuscular Volume 77.1 fl (81-99); Mean Platelet Volume 8.7 fl (7.4-10.4); Monocytes # 0.4 K/mm3 (0.1-1.0); Monocytes % 3.5 % (1.7-9.3); Neutrophils # 7.9 K/mm3 (1.8-7.8); Neutrophils % 76.6 % (37.0-80.0); Platelet Count 401 K/mm3 (142-424); Potassium 4.5 mmoL/L (3.5-5.1); Red Blood Count 5.21 M/mm3 (4.20-5.40); Red Cell Distribution Width 15.3 % (11.5-17.5); Sodium 133 mmol/L (136-145); Total Protein,Serum 8.7 g/dl (6.3-8.2); White Blood Count 10.3 K/mm3 (4.8-10.8)
[2021-06-30 15:13] LABS: Glucose 405 mg/dl (74-100)
[2021-06-30 15:14] LABS: Appearance,Urine SL CLOUDY (Clear); Bilirubin,Urine Negative (Negative); Blood, Urine Negative (Negative); Color,Urine YELLOW (Yellow); Glucose,Urine (UA) 3+ (Negative); Ketones,Urine 3+ (Negative); Leukocyte Esterase,Urine Negative (Negative); Nitrate,Urine Negative (Negative); PH,Urine 5.5 (5.0-8.5); Protein,Urine TRACE (Negative); Specific Gravity, Urine 1.025 (1.005-1.030); Urobilinogen,Urine 0.2 EU/dl (0.2)
--- NOTE | 2021-06-30 15:14 | PC.NURSE ---
Lab called critical glucose of 405. Repeated and verified by this nurse.
--- NOTE | 2021-06-30 15:17 | HMH.EDGENADL ---
ED Disposition Clinical Impression: DKA (diabetic ketoacidosis) Qualifiers: Diabetes mellitus type: type 1 Diabetes mellitus complication detail: without coma Qualified Code(s): E10.10 - Type 1 diabetes mellitus with ketoacidosis without coma Disposition: Admitted As Inpatient Condition on Discharge: Good - Critical Care Critical Care Time: No Attestation: On 06/30/21, the high probability of a clinically significant, sudden or life threatening deterioration of the following system(s) required my full and direct attention, intervention and personal management. The time I documented below is in addition to time spent performing reported procedures but includes the following listed in this critical care notation. Medical Decision Making - Medical Records Medical records reviewed: Yes: I reviewed the patient's medical records. - Jamari Inquiry Pt receiving controlled substance: No Vital Signs: 06/30/21 14:31 06/30/21 14:44 06/30/21 15:04 Temperature 98.6 F Temperature Source Oral Pulse Rate 100 H 84 Pulse Rate [Right Radial] 101 H Respiratory Rate 17 18 16 Blood Pressure 120/98 H 126/84 Blood Pressure [Right Arm] 120/98 H Blood Pressure Mean [Right Arm] 105 Blood Pressure Source [Right Arm] Automatic Cuff Blood Pressure Position [Right Arm] Sitting 02 Sat by Pulse Oximetry 98 98 Oxygen Delivery Method Room Air 06/30/21 15:30 06/30/21 16:00 06/30/21 16:31 Temperature Temperature Source Pulse Rate 91 H 91 H 94 H Pulse Rate [Right Radial] Respiratory Rate 20 25 H 20 Blood Pressure 128/87 134/87 118/79 Blood Pressure [Right Arm] Blood Pressure Mean [Right Arm] Blood Pressure Source [Right Arm] Blood Pressure Position [Right Arm] 02 Sat by Pulse Oximetry 97 96 95 Oxygen Delivery Method - Lab Data Lab Results 06/30/21 14:34: POC Glucose 393 H* 06/30/21 14:50: WBC 10.3, RBC 5.21, Hgb 13.3, Hct 40.2, MCV 77.1 L, MCH 25.5 L, MCHC 33.0, RDW 15.3, Plt Count 401, MPV 8.7, Neut % (Auto) 76.6, Lymph % (Auto) 18.0, [place] % (Auto) 3.5, Eos % (Auto) 1.0, Baso % (Auto) 0.9, Neut # (Auto) 7.9 H, Lymph # (Auto) 1.9, [place] # (Auto) 0.4, Eos # (Auto) 0.1, Baso # (Auto) 0.1 06/30/21 14:50: Sodium 133 L, Potassium 4.5, Chloride 97 L, Carbon Dioxide 20 L, Anion Gap 20.5 H, BUN 11, Creatinine 0.60, Estimated Creat Clear 181, Estimated GFR 117, Est GFR ( Amer) 142, Glucose 405 H*, Calcium 9.2, Total Bilirubin 0.6, AST 24, ALT 19, Alkaline Phosphatase 224 H, Total Protein 8.7 H, Albumin 4.6, Globulin 4.1 H, Albumin/Globulin Ratio 1.1 06/30/21 14:50: Serum HCG, Qual Negative 06/30/21 14:50: Acetone Level Moderate 06/30/21 15:02: Urine Color Yellow, Urine Appearance Sl cloudy, Urine pH 5.5, Ur Specific [place] 1.025, Urine Protein Trace, Urine Glucose (UA) 3+, Urine Ketones 3+, Urine Blood Negative, Urine Nitrate Negative, Urine Bilirubin Negative, Urine Urobilinogen 0.2, Ur Leukocyte Esterase Negative, Urine RBC None, Urine WBC None, Ur Squamous Epith Cells None, Urine Bacteria None 06/30/21 15:08: VBG pH 7.30 L, VBG pCO2 37.9, VBG pO2 46.5 H, VBG HCO3 18.4 L, VBG Total CO2 19.5 L, VBG O2 Saturation 79.6 H, VBG Base Excess -8.0 L Result diagrams: 06/30/21 14:50 06/30/21 14:50 Orders (Tests/Meds): ED MEDICATIONS Discontinued Medications Generic Name Dose Route Start Last Admin Trade Name Freq PRN Reason Stop Dose Admin Sodium Chloride 1,000 mls @ 999 mls/hr 06/30/21 14:56 06/30/21 14:58 Sod Chlor 0.9% 1000ml Bag IV 06/30/21 15:56 999 mls/hr .Q1H1M ONE Administration Ondansetron HCl 4 mg 06/30/21 16:15 06/30/21 16:16 Ondansetron 4mg/2ml Vial IV 06/30/21 16:16 4 mg ONCE ONE Administration Promethazine HCl 25 mg 06/30/21 17:09 06/30/21 17:17 Promethazine Hcl 25mg/Ml 1ml Vial IV 06/30/21 17:10 25 mg ONCE ONE Administration Sodium Chloride 25 ml 06/30/21 17:09 06/30/21 17:17 Sodium Chloride 0.9% 25ml Bag IV 06/30/21 17:10 25 ml ONC
[2021-06-30 15:26] LABS: HCG Qualitative, Serum Negative (Negative)
[2021-06-30 15:28] LABS: VBG HCO3 18.4 mmol/L (23-30); VBG Oxygen Saturation 79.6 % (50-70); VBG PCO2 37.9 mmol/L (35-51); VBG PO2 46.5 mmol/L (28-40); VBG Total CO2 19.5 mmol/L (23-27)
[2021-06-30 15:46] LABS: Acetone, Serum (Rapid) Moderate (None Detect)
--- NOTE | 2021-06-30 17:06 | PC.NURSE ---
Dr Golden is covering for Dr Ayala. Dr Golden
--- NOTE | 2021-06-30 17:06 | PC.NURSE ---
Pt ambulating to bathroom at this time.
--- NOTE | 2021-06-30 17:21 | PC.NURSE ---
ER MD on phone with Dr. Golden at this time for admission consult
--- NOTE | 2021-06-30 17:24 | PC.NURSE ---
BED ASSIGNMENT REQUESTED, ROOM 265. ALL STAFF NOTIFIED
--- NOTE | 2021-06-30 17:24 | PC.NURSE ---
Called [facility]utter at this time to report admission
--- NOTE | 2021-06-30 17:36 | PC.NURSE ---
House gave bed assignment of room 265
--- NOTE | 2021-06-30 17:46 | PC.NURSE ---
Attempted to call report on pt. Rebeca is supposed to call me back d/t being in with another pt.
[2021-06-30 18:18] LABS: POC Glucose,Bedside 322 (70-110)
[2021-06-30 18:23] LABS: Coronavirus 19, PCR Not Detected (NotDetected); Influenza A, PCR Not Detected (NotDetected); Influenza B, PCR Not Detected (NotDetected)
[2021-06-30 19:17] LABS: POC Glucose,Bedside 296 (70-110)
[2021-06-30 19:46] LABS: Chloride 102 mmol/L (98-107)
[2021-06-30 19:47] LABS: Potassium 4.7 mmoL/L (3.5-5.1); Sodium 134 mmol/L (136-145)
[2021-06-30 19:50] LABS: Anion Gap 17.7 mEq/L (5-15); Blood Urea Nitrogen 10 mg/dl (7-17); Calcium 8.8 mg/dl (8.4-10.2); Carbon Dioxide 19 mmol/L (22.0-30.0); Creatinine Clearance Estimated 217 mL/min (50-200); Estimated Glomerular Filt Rate 145 ml/min (>60); GFR (African American) 175 ML/MIN (>60); Glucose 313 mg/dl (74-100)
[2021-06-30 20:53] LABS: Acetone, Serum (Rapid) Small (None Detect)
[2021-06-30 22:18] LABS: POC Glucose,Bedside 200 (70-110)
[2021-06-30 22:18] LABS: POC Glucose,Bedside 245 (70-110)
[2021-06-30 22:18] LABS: POC Glucose,Bedside 201 (70-110)
[2021-06-30 22:34] LABS: Chloride 105 mmol/L (98-107); Potassium 4.1 mmoL/L (3.5-5.1); Sodium 137 mmol/L (136-145)
[2021-06-30 22:37] LABS: Anion Gap 13.1 mEq/L (5-15); Blood Urea Nitrogen 10 mg/dl (7-17); Carbon Dioxide 23 mmol/L (22.0-30.0); Creatinine Clearance Estimated 200 mL/min (50-200); Estimated Glomerular Filt Rate 117 ml/min (>60); GFR (African American) 142 ML/MIN (>60)
[2021-06-30 22:38] LABS: Calcium 8.7 mg/dl (8.4-10.2); Glucose 189 mg/dl (74-100)
[2021-06-30 23:16] LABS: POC Glucose,Bedside 155 (70-110)
[2021-07-01] VITALS (12 sets, daily range): BP systolic 115–152; BP diastolic 70–94; PULSE 72–100; RESP 15–24; TEMP 36.7–37.3; O2SAT 92–98; BMI 36.3
[2021-07-01 00:22] LABS: POC Glucose,Bedside 138 (70-110)
[2021-07-01 01:27] LABS: POC Glucose,Bedside 167 (70-110)
[2021-07-01 02:21] LABS: Chloride 108 mmol/L (98-107)
[2021-07-01 02:22] LABS: Sodium 138 mmol/L (136-145)
[2021-07-01 02:24] LABS: Blood Urea Nitrogen 9 mg/dl (7-17); Creatinine Clearance Estimated 241 mL/min (50-200); Estimated Glomerular Filt Rate 145 ml/min (>60); GFR (African American) 175 ML/MIN (>60)
[2021-07-01 02:25] LABS: Calcium 8.5 mg/dl (8.4-10.2); Carbon Dioxide 23 mmol/L (22.0-30.0); Glucose 143 mg/dl (74-100)
--- NOTE | 2021-07-01 02:28 | PC.NURSE ---
0000 fsbs was 138 decreased insulin to 1 unit and changed fluids per order to d5ns 75 ml/hr 0200 fsbs 138 insulin already at 1 unit increased d5ns to 125 ml/hr per protocol
--- NOTE | 2021-07-01 03:48 | PC.NURSE ---
pt admitted for dka. alert and oriented. independent with ambulation. port to right chest infusing per mar. currently on d5ns and insulin drip. port has had some issues with drawing blood at times. fsbs q1h currently. pt has stated no pain. slept in intervals this shift. vss. call light in reach. will continue to monitor
[2021-07-01 04:09] LABS: POC Glucose,Bedside 167 (70-110)
[2021-07-01 05:47] LABS: Basophils # 0.1 K/mm3 (0-0.2); Basophils % 0.7 % (0.1-2.0); Eosinophils # 0.1 K/mm3 (0.0-0.4); Eosinophils % 1.3 % (0.1-12.0); Hematocrit 36.3 % (37.0-47.0); Lymphocytes % 21.7 % (10-50); Mean Corpuscular Hemoglobin 25.7 pg (27.0-31.2); Mean Platelet Volume 8.4 fl (7.4-10.4); Monocytes # 0.5 K/mm3 (0.1-1.0); Neutrophils # 6.5 K/mm3 (1.8-7.8); Neutrophils % 71.3 % (37.0-80.0); Platelet Count 333 K/mm3 (142-424); Red Blood Count 4.66 M/mm3 (4.20-5.40); Red Cell Distribution Width 15.5 % (11.5-17.5); White Blood Count 9.1 K/mm3 (4.8-10.8)
[2021-07-01 05:52] LABS: Acetone, Serum (Rapid) None Detected (None Detect); Chloride 107 mmol/L (98-107)
[2021-07-01 05:53] LABS: Sodium 137 mmol/L (136-145)
[2021-07-01 05:56] LABS: Blood Urea Nitrogen 9 mg/dl (7-17); Calcium 8.4 mg/dl (8.4-10.2); Carbon Dioxide 22 mmol/L (22.0-30.0); Creatinine Clearance Estimated 242 mL/min (50-200); Estimated Glomerular Filt Rate 145 ml/min (>60); GFR (African American) 175 ML/MIN (>60); Glucose 222 mg/dl (74-100)
[2021-07-01 06:00] LABS: POC Glucose,Bedside 224 (70-110)
--- NOTE | 2021-07-01 08:01 | P.CONPHA_ITS ---
[facility] Pharmacy VTE Monitoring - Patient Demographics Admission date: 06/30/21 Report Date: 07/01/21 Time: 08:01 Allergies/Adverse Reactions: Patient Allergies buspirone [BUSPIRONE] Allergy (Severe, Verified 04/01/21 08:54) Seizure nitrofurantoin [NITROFURANTOIN] Allergy (Severe, Verified 04/01/21 08:54) Seizure sulfamethoxazole [From BACTRIM] Allergy (Severe, Verified 04/01/21 08:54) Seizure trimethoprim [From BACTRIM] Allergy (Severe, Verified 04/01/21 08:54) Seizure topiramate [From TOPAMAX] Allergy (Unknown, Verified 04/01/21 08:54) adhesive tape Adverse Reaction (Intermediate, Verified 04/01/21 08:54) SKIN IRRITATION Height: 1.6 m Weight: 93.1 kg Patient Problems: Current Active Problems Diabetic ketoacidosis (Acute) - VTE Risk Labs: VTE Related Lab Results Hgb 12.0 g/dL (12.2-16.2) L 07/01/21 05:20 Hct 36.3 % (37.0-47.0) L 07/01/21 05:20 Plt Count 333 K/mm3 (142-424) 07/01/21 05:20 BUN 9 mg/dl (7-17) 07/01/21 05:20 Creatinine 0.50 mg/dl (0.52-1.04) L 07/01/21 05:20 Estimated Creat Clear 242 mL/min (50-200) 07/01/21 05:20 Was VTE Risk Assessment Performed: Yes VTE Score: 1 VTE Risk Level: Very Low Risk - Prophylaxis VTE Prophylaxis Ordered?: Yes Types of VTE Prophylaxis: TEDS Knee High Location of Applied Device: Bilateral Lower Extremeties
--- NOTE | 2021-07-01 08:03 | HMH.HP ---
*Admission Date: 06/30/21 *Chief complaint: nausea, DKA *History of present illness: Ms. Bolton is a 31-year-old female with seizure disorder, poorly controlled type 1 diabetes, and gastroparesis. Presented to the ER due to worsening nausea, fatigue, tachycardia. On arrival found to be in mild DKA and admitted for treatment per protocol. Initiated on insulin drip and IV fluids. Responded briskly to therapy with closure of her gap overnight and improvement in p.o. tolerance. Nausea somewhat better but still present this morning on assessment. Remains afebrile and hemodynamically stable. Based on labs this morning, discussed transitioning to basal bolus regimen. Patient is amenable to this. She states she has actually been doing very well with controlling her blood sugar lately. Glucoses have been in a normal range per her report though she does not give specific numbers. Had an episode a few days ago with moderate ketones in her urine that she treated at home but unfortunately had recurrence of symptoms causing her to decide to come to the ER for further management. [facility] History I have reviewed the patient's past medical history: Yes Medical History: Reports:: Anxiety, Arrhythmia, Deep Vein Thrombosis, Depression, Diabetes Mellitus Type 1, Hypertension, Migraine, MRSA, Palpitations, Pulmonary Embolism, Seizures Denies:: Cancer, Diabetes Mellitus Type 2, Internal Pacemaker *Have you ever received a pneumonia vaccine?: No *Have you received a flu vaccine this season?: Yes Other Medical History: Reports: Anemia, Hypothyroidism, Other. Denies: Blood Transfusion Reaction Laterality Cases: Bilateral: Other Other Surgeries: Yes: Appendectomy, Cholecystectomy, Dilation and Curettage, Hysterectomy-Partial, Tubal Ligation, Other (RT EYE,BACK,POWER PORT). No: Pacemaker Amputation: No Fractures: No - *Social History Smoking Status: Never smoker Tobacco Type: cigarettes # Packs/Day (cigarettes): 1 #Yrs smoked (if former smoker): 4 Alcohol Intake: never Alcohol Intake Frequency:: holidays/special occasions only Substance Use Type: marijuana Last Used Substance: unknown *Occupational Status:: disabled Housing: house Household Members: other *Travel in the last 8 weeks: None - Psychiatric History Pschychiatric History:: Reports:: Anxiety, Depression Family Hx:: Diabetes, Kidney Disease, Mental illness Review of Systems - Review of Systems Review of systems:: pertinent systems reviewed and negative unless documented below (14 point review of systems performed, pertinent positives and negatives as per HPI) Meds Home Medications Medication Instructions Recorded Confirmed Type OXcarbazepine [Trileptal 300mg 1,200 mg PO BID 11/03/18 06/30/21 History tablet] levETIRAcetam [Levetiracetam] 2,500 mg PO BID 01/29/20 06/30/21 History Levothyroxine Sodium 25 mcg PO DAILY 30 Days #30 tab 08/18/20 06/30/21 Rx [Levothyroxine 25mcg (0.025mg) Tab] Promethazine HCl [Phenergan 25mg 25 mg PO Q6H PRN 5 Days #15 tab 08/18/20 06/30/21 Rx tab] Ondansetron [Zofran 4mg ODT] 4 mg PO TIDP PRN #15 tab 01/06/21 06/30/21 Rx insulin glargine 100 unit/mL (3 60 unit SQ DAILY ml 02/10/21 06/30/21 History mL) subcutaneous pen insulin lispro 100 unit/mL 20 unit SQ AC ml 02/10/21 06/30/21 History subcutaneous solution venlafaxine 75 mg capsule,extended 150 mg PO DAILY cap 02/10/21 06/30/21 History release 24 hr Gabapentin 800 mg PO TID 06/30/21 06/30/21 History Allergies Allergy/AdvReac Type Severity Reaction Status Date / Time buspirone [BUSPIRONE] Allergy Severe Seizure Verified 04/01/21 08:54 nitrofurantoin Allergy Severe Seizure Verified 04/01/21 08:54 [NITROFURANTOIN] sulfamethoxazole Allergy Severe Seizure Verified 04/01/21 08:54 [From BACTRIM] trimethoprim [From BACTRIM] Allergy Severe Seizure Verified 04/01/21 08:54 topiramate [From TOPAMAX] Allergy Unknown Verified 04/01/21 08:54 adhesive tape AdvReac Intermediate
[2021-07-01 09:29] LABS: POC Glucose,Bedside 274 (70-110)
[2021-07-01 10:48] LABS: Hemoglobin A1C 11.2 % (4.0-6.0)
--- NOTE | 2021-07-01 11:10 | HMH.PHAINT ---
MEDICATION RECONCILIATION COMPLETED ON PATIENT USING EXTERNAL FILL HISTORY FROM PHARMACY. -BRENDA CHARLES, SADID
[2021-07-01 12:22] LABS: POC Glucose,Bedside 292 (70-110)
--- NOTE | 2021-07-01 14:21 | PC.NURSE ---
per dr cisse, ok to take out of sd
[2021-07-01 14:51] LABS: Chloride 103 mmol/L (98-107); Potassium 5.3 mmoL/L (3.5-5.1); Sodium 134 mmol/L (136-145)
[2021-07-01 14:54] LABS: Anion Gap 21.3 mEq/L (5-15); Blood Urea Nitrogen 9 mg/dl (7-17); Calcium 8.7 mg/dl (8.4-10.2); Carbon Dioxide 15 mmol/L (22.0-30.0); Creatinine Clearance Estimated 202 mL/min (50-200); Estimated Glomerular Filt Rate 117 ml/min (>60); GFR (African American) 142 ML/MIN (>60); Glucose 337 mg/dl (74-100)
[2021-07-01 16:47] LABS: POC Glucose,Bedside 286 (70-110)
--- NOTE | 2021-07-01 18:18 | PC.NURSE ---
pt has been sitting up in bed most of the shift. she has been very cheerful in [facility]. early in the shift pt called out and states that she was throwing up. upon entering pt room and bathroom pt was found to be sitting on the commode with the trash can in her lap. no vomit was noted. dr cisse was contacted and zofran was obtained. pt has not had any further episodes of vomiting at this time. lungs are clear, bowel sounds are active nad
[2021-07-01 21:01] LABS: POC Glucose,Bedside 321 (70-110)
--- NOTE | 2021-07-01 21:37 | PC.NURSE ---
Not able to draw back on port to chest. Flash obtained with small amount of blood. Lab notified.
[2021-07-01 22:00] LABS: Chloride 104 mmol/L (98-107)
[2021-07-01 22:01] LABS: Potassium 4.1 mmoL/L (3.5-5.1); Sodium 132 mmol/L (136-145)
[2021-07-01 22:03] LABS: Blood Urea Nitrogen 10 mg/dl (7-17); Creatinine Clearance Estimated 202 mL/min (50-200); Estimated Glomerular Filt Rate 117 ml/min (>60); GFR (African American) 142 ML/MIN (>60)
[2021-07-01 22:04] LABS: Anion Gap 14.1 mEq/L (5-15); Calcium 8.7 mg/dl (8.4-10.2); Carbon Dioxide 18 mmol/L (22.0-30.0); Glucose 326 mg/dl (74-100)
[2021-07-02] VITALS: BP 116/71; PULSE 81; PULSE 90; RESP 12; TEMP 36.7; O2SAT 99
[2021-07-02 04:00] VITALS: BP 131/86; PULSE 79; PULSE 80; RESP 18; TEMP 36.5; O2SAT 98
[2021-07-02 05:00] VITALS: BMI 37.3
[2021-07-02 05:59] LABS: POC Glucose,Bedside 224 (70-110)
--- NOTE | 2021-07-02 06:32 | PC.NURSE ---
Pt is A/O x4, no acute changes overnight. Pt slept well all shift. Pt did state overnight that her left ankle had been hurting her for a few awhile. When touching the ankle, pt jumped. Pt stated she has not been able to put full weight on ankle. Pt did have some nausea, admin meds per MAR with relief. FBS: 21:00-321, 06:00-224. Pt denies any pain. Pt is able to make needs known to staff, VSS, call light within reach, will continue to monitor.
[2021-07-02 06:38] LABS: Basophils # 0.1 K/mm3 (0-0.2); Basophils % 0.7 % (0.1-2.0); Eosinophils # 0.1 K/mm3 (0.0-0.4); Eosinophils % 1.6 % (0.1-12.0); Hematocrit 34.2 % (37.0-47.0); Hemoglobin 11.4 g/dL (12.2-16.2); Lymphocytes # 1.9 K/mm3 (0.7-4.5); Lymphocytes % 24.2 % (10-50); Mean Corpuscular HGB Conc 33.4 g/dL (31.8-35.4); Mean Corpuscular Hemoglobin 25.9 pg (27.0-31.2); Mean Corpuscular Volume 77.4 fl (81-99); Mean Platelet Volume 8.6 fl (7.4-10.4); Monocytes # 0.4 K/mm3 (0.1-1.0); Monocytes % 5.3 % (1.7-9.3); Neutrophils # 5.3 K/mm3 (1.8-7.8); Neutrophils % 68.3 % (37.0-80.0); Platelet Count 316 K/mm3 (142-424); Red Blood Count 4.42 M/mm3 (4.20-5.40); White Blood Count 7.8 K/mm3 (4.8-10.8)
[2021-07-02 06:42] LABS: Chloride 106 mmol/L (98-107); Sodium 134 mmol/L (136-145)
[2021-07-02 06:43] LABS: Potassium 4.3 mmoL/L (3.5-5.1)
[2021-07-02 06:45] LABS: Alanine Aminotransferase 16 U/L (12-78); Albumin Level 3.8 g/dl (3.5-5.0); Albumin/Globulin Ratio 1.1 (1.1-1.8); Alkaline Phosphatase 182 U/L (38-126); Anion Gap 14.3 mEq/L (5-15); Aspartate Amino Transferase 25 U/L (14-36); Bilirubin,Total 0.3 mg/dl (0.2-1.3); Blood Urea Nitrogen 11 mg/dl (7-17); Calcium 8.4 mg/dl (8.4-10.2); Carbon Dioxide 18 mmol/L (22.0-30.0); Creatinine Clearance Estimated 248 mL/min (50-200); Estimated Glomerular Filt Rate 145 ml/min (>60); GFR (African American) 175 ML/MIN (>60); Globulin 3.6 g/dL (1.3-3.2); Glucose 257 mg/dl (74-100); Magnesium 1.6 mg/dl (1.6-2.3); Total Protein,Serum 7.4 g/dl (6.3-8.2)
--- NOTE | 2021-07-02 07:21 | HMH.DCSUM ---
General - General Admission date:: 06/30/21 Discharge date: 07/02/21 HPI HPI: Ms. Bolton is a 31-year-old female with seizure disorder, poorly controlled type 1 diabetes, and gastroparesis. Presented to the ER due to worsening nausea, fatigue, tachycardia. On arrival found to be in mild DKA and admitted for treatment per protocol. Initiated on insulin drip and IV fluids. Responded briskly to therapy with closure of her gap overnight and improvement in p.o. tolerance. Nausea somewhat better but still present this morning on assessment. Remains afebrile and hemodynamically stable. Based on labs this morning, discussed transitioning to basal bolus regimen. Patient is amenable to this. She states she has actually been doing very well with controlling her blood sugar lately. Glucoses have been in a normal range per her report though she does not give specific numbers. Had an episode a few days ago with moderate ketones in her urine that she treated at home but unfortunately had recurrence of symptoms causing her to decide to come to the ER for further management. Hospital Course Hospital Course: Patient was admitted, fluids were given, her gap quickly closed. She was able to tolerate solid foods and was reverted back to her basal bolus regimen. She did complain of her ankle hurting today, states that she injured it 3 weeks ago and is unable to bear weight. We will get a simple x-ray before discharge to make sure were not dealing with a fracture. Otherwise she will be discharged home, we will provide her with a tamir system for continuous glucose monitoring and she will follow-up in our office on next Wednesday. Objective Vital signs: Temp Pulse Resp BP Pulse Ox 97.7 F 79 18 131/86 98 07/02/21 04:00 07/02/21 04:00 07/02/21 04:00 07/02/21 04:00 07/02/21 04:00 no acute distress - *Routine HEENT Exam Head: Present: normocephalic Eye: Present: EOMI, PERRL ENT: Present: mucous membranes moist - *Routine Neck Exam Present: supple - *Routine Respiratory Exam Present: CTA bilaterally - *Routine Cardiovascular Exam Present: RRR - *Routine Abdominal Exam Present: soft, normoactive bowel sounds. Absent: tenderness - *Routine Extremities Exam Absent: cyanosis, clubbing, edema Comments: Tenderness above the lateral malleolus of the left ankle. Consistent with syndesmosis tenderness. No specific bony pain. Good range of motion, good pulses. - *Routine Skin Exam Present: warm. Absent: rash - Detailed Eye Exam Eyelids: Bilateral normal inspection Results Labs on day of discharge: Labs from last 24 hours 07/02/21 07/02/21 07/02/21 06:04 06:04 05:49 WBC 7.8 RBC 4.42 Hgb 11.4 L Hct 34.2 L MCV 77.4 L MCH 25.9 L MCHC 33.4 RDW 15.0 Plt Count 316 MPV 8.6 Neut % (Auto) 68.3 Lymph % (Auto) 24.2 [place] % (Auto) 5.3 Eos % (Auto) 1.6 Baso % (Auto) 0.7 Neut # (Auto) 5.3 Lymph # (Auto) 1.9 [place] # (Auto) 0.4 Eos # (Auto) 0.1 Baso # (Auto) 0.1 Sodium 134 L Potassium 4.3 Chloride 106 Carbon Dioxide 18 L Anion Gap 14.3 BUN 11 Creatinine 0.50 L Estimated Creat Clear 248 Estimated GFR 145 Est GFR ( Amer) 175 D Glucose 257 H D POC Glucose 224 H Hemoglobin A1c Calcium 8.4 Magnesium 1.6 Total Bilirubin 0.3 AST 25 ALT 16 Alkaline Phosphatase 182 H Total Protein 7.4 Albumin 3.8 Globulin 3.6 H Albumin/Globulin Ratio 1.1 07/01/21 07/01/21 07/01/21 21:45 20:38 16:37 WBC RBC Hgb Hct MCV MCH MCHC RDW Plt Count MPV Neut % (Auto) Lymph % (Auto) [place] % (Auto) Eos % (Auto) Baso % (Auto) Neut # (Auto) Lymph # (Auto) [place] # (Auto) Eos # (Auto) Baso # (Auto) Sodium 132 L Potassium 4.1 D Chloride 104 Carbon Dioxide 18 L Anion Gap 14.1 BUN 10 Creatinine 0
--- NOTE | 2021-07-02 07:23 | XR_ITS ---
PROCEDURE: XR ANKLE LT 2V CLINICAL INDICATION: left ankle pain COMPARISON: No exams were available for comparison FINDINGS: No fracture or dislocation. No lytic or blastic change. There is normal mineralization. The joint spaces are well-preserved. No significant degenerative/arthritic changes. No erosive changes evident. Other findings:None. IMPRESSION: No acute findings. Dictated by: Agustin Yu MD 07/02/2021 11:35 Agustin Yu MD in [facility] 07/02/2021 11:35
[2021-07-02 08:00] VITALS: BP 127/76; PULSE 80; RESP 16; TEMP 36.9; O2SAT 98
[2021-07-02 10:22] LABS: Chloride 104 mmol/L (98-107); Potassium 4.5 mmoL/L (3.5-5.1); Sodium 133 mmol/L (136-145)
[2021-07-02 10:25] LABS: Anion Gap 15.5 mEq/L (5-15); Blood Urea Nitrogen 9 mg/dl (7-17); Calcium 8.9 mg/dl (8.4-10.2); Carbon Dioxide 18 mmol/L (22.0-30.0); Creatinine Clearance Estimated 248 mL/min (50-200); Estimated Glomerular Filt Rate 145 ml/min (>60); GFR (African American) 175 ML/MIN (>60); Glucose 333 mg/dl (74-100)
--- NOTE | 2021-07-02 10:31 | PC.NURSE ---
received critical glucose from lab at 1028. glucose 333. value, , name and v# repeated and verified with lab staff. primary RN Kimberly Zamora was notified at 1029. She inturn notified Dr Reynaga of results. pt glucose was checked on Nurys device at 1000 and was noted to be 293
[2021-07-03 21:37] LABS: POC Glucose,Bedside 324 (70-110)
== END 2021-07-02 13:03 | disposition home or self-care (01) ==
LOC: ER 16:06 → 2ND 17:34 → ICU 22:24
PROVIDERS: Admitting Provider Family Medicine; Emergency Provider Emergency Medicine; PCP Internal Medicine Adolescent Medicine; Visit Provider Internal Medicine Adolescent Medicine
DX: E11.10 Type 2 diabetes mellitus with ketoacidosis without coma (principal); Z20.822 Contact with and (suspected) exposure to COVID-19; Z79.4 Long term (current) use of insulin; G43.909 Migraine, unspecified, not intractable, without status migrainosus; I10 Essential (primary) hypertension; E03.9 Hypothyroidism, unspecified; Z88.8 Allergy status to other drugs, medicaments and biological substances; G40.909 Epilepsy, unspecified, not intractable, without status epilepticus; Z79.899 Other long term (current) drug therapy
CPT/HCPCS: 36415; 73600; 80048; 80053; 81001; 82009; 82803; 82962; 83036; 83735; 84703; 85025; 96365; 96375; 99284; G0378; J1642; J2405; U0003

== ENCOUNTER 2021-07-10 12:49 | Emergency (ER) | payer OTHER, SELFPAY ==
[2021-07-10 12:50] VITALS: BP 142/80; PULSE 115; RESP 22; TEMP 37.1; O2SAT 96; BMI 36.1
--- NOTE | 2021-07-10 12:57 | HMH.EDGENADL ---
ED Disposition Clinical Impression: Hyperglycemia, Dehydration Disposition: Home, Self-Care Condition on Discharge: Good Instructions: DI for Hyperglycemia -- Adult Additional Instructions: Follow-up with your primary care provider in 1-2 days for reevaluation. Return to the emergency department for any acute new concerns. Referrals: Provider,Referral, [Primary Care Provider] - - Critical Care Critical Care Time: No Attestation: On , the high probability of a clinically significant, sudden or life threatening deterioration of the following system(s) required my full and direct attention, intervention and personal management. The time I documented below is in addition to time spent performing reported procedures but includes the following listed in this critical care notation. Medical Decision Making - Medical Records Medical records reviewed: Yes: I reviewed the patient's medical records. - Jamari Inquiry Pt receiving controlled substance: No Vital Signs: 07/10/21 12:50 07/10/21 13:31 07/10/21 14:30 Temperature 98.7 F Temperature Source Oral Pulse Rate 116 H 108 H Pulse Rate [Radial] 115 H Respiratory Rate 22 16 16 Blood Pressure 125/95 H 128/90 Blood Pressure [Right Arm] 142/80 H Blood Pressure Mean 101 100 Blood Pressure Mean [Right Arm] 100 Blood Pressure Position [Right Arm] Sitting 02 Sat by Pulse Oximetry 96 98 98 Oxygen Delivery Method Room Air 07/10/21 15:31 07/10/21 16:00 Temperature Temperature Source Pulse Rate 96 H 99 H Pulse Rate [Radial] Respiratory Rate 16 12 Blood Pressure 131/93 H 141/84 H Blood Pressure [Right Arm] Blood Pressure Mean 102 99 Blood Pressure Mean [Right Arm] Blood Pressure Position [Right Arm] 02 Sat by Pulse Oximetry 98 100 Oxygen Delivery Method - Lab Data Lab results reviewed: Yes: I reviewed the patient's lab results. Lab Results 07/10/21 12:50: Urine Color Yellow, Urine Appearance Clear, Urine pH 5.0, Ur Specific [place] 1.010, Urine Protein Negative, Urine Glucose (UA) 3+, Urine Ketones 3+, Urine Blood Negative, Urine Nitrate Negative, Urine Bilirubin Negative, Urine Urobilinogen 0.2, Ur Leukocyte Esterase Negative, Urine RBC None, Urine WBC None, Ur Squamous Epith Cells 3-5, Urine Bacteria None 07/10/21 12:51: VBG pH 7.24 L, VBG pCO2 36.2, VBG pO2 54.8 H, VBG HCO3 15.2 L, VBG Total CO2 16.3 L, VBG O2 Saturation 84.6 H, VBG Base Excess -12.1 L 07/10/21 13:05: WBC 13.5 H, RBC 4.51, Hgb 11.7 L, Hct 35.6 L, MCV 78.8 L, MCH 25.9 L, MCHC 32.9, RDW 15.3, Plt Count 318, MPV 8.5, Neut % (Auto) 90.1 H, Lymph % (Auto) 7.1 L, [place] % (Auto) 2.0, Eos % (Auto) 0.4, Baso % (Auto) 0.4, Neut # (Auto) 12.2 H, Lymph # (Auto) 1.0, [place] # (Auto) 0.3, Eos # (Auto) 0.1, Baso # (Auto) 0.1, Total Counted 100, Neutrophils % (Manual) 91 H, Lymphocytes % (Manual) 7 L, Monocytes % (Manual) 2, Platelet Estimate Normal, Anisocytosis 1+, Microcytosis 1+ 07/10/21 13:05: Sodium 136, Potassium 4.1, Chloride 104, Carbon Dioxide 16 L, Anion Gap 20.1 H, BUN 10, Creatinine 0.60, Estimated Creat Clear 200, Estimated GFR 117, Est GFR ( Amer) 142, Glucose 423 H*, Calcium 8.8, Acetone Level Moderate 07/10/21 15:44: VBG pH 7.32, VBG pCO2 37.1, VBG pO2 59.9 H, VBG HCO3 18.5 L, VBG Total CO2 19.6 L, VBG O2 Saturation 89.2 H, VBG Base Excess -7.7 L 07/10/21 16:24: Sodium 138, Potassium 3.9, Chloride 112 H, Carbon Dioxide 18 L, Anion Gap 11.9, BUN 8, Creatinine 0.40 L D, Estimated Creat Clear 300, Estimated GFR 187, Est GFR ( Amer) 227 D, Glucose 124 H D Result diagrams: 07/10/21 13:05 07/10/21 16:24 Orders (Tests/Meds): ED MEDICATIONS Discontinued Medications Generic Name Dose Route Start Last Admin Trade Name Freq PRN Reason Stop Dose Admin Sodium Chloride 1,000 mls @ 999 mls/hr 07/10/21 13:00 07/10/21 13:27 Sod Chlor 0.9% 1000ml Bag IV 07/10/21 14:00 999 mls/hr .Q1H1M DALIA Administration Sodium Chloride 1,000 mls @ 999 mls/hr 07/10/21
[2021-07-10 13:06] LABS: Microscopic, Urine URINE MICROSCOPIC (MICROSCOPIC)
[2021-07-10 13:08] LABS: Appearance,Urine CLEAR (Clear); Bilirubin,Urine Negative (Negative); Blood, Urine Negative (Negative); Color,Urine YELLOW (Yellow); Glucose,Urine (UA) 3+ (Negative); Ketones,Urine 3+ (Negative); Leukocyte Esterase,Urine Negative (Negative); Nitrate,Urine Negative (Negative); Protein,Urine Negative (Negative); Urobilinogen,Urine 0.2 EU/dl (0.2)
[2021-07-10 13:30] LABS: Basophils # 0.1 K/mm3 (0-0.2); Basophils % 0.4 % (0.1-2.0); Eosinophils # 0.1 K/mm3 (0.0-0.4); Eosinophils % 0.4 % (0.1-12.0); Hematocrit 35.6 % (37.0-47.0); Hemoglobin 11.7 g/dL (12.2-16.2); Lymphocytes % 7.1 % (10-50); Mean Corpuscular HGB Conc 32.9 g/dL (31.8-35.4); Mean Corpuscular Hemoglobin 25.9 pg (27.0-31.2); Mean Corpuscular Volume 78.8 fl (81-99); Mean Platelet Volume 8.5 fl (7.4-10.4); Monocytes # 0.3 K/mm3 (0.1-1.0); Neutrophils # 12.2 K/mm3 (1.8-7.8); Neutrophils % 90.1 % (37.0-80.0); Platelet Count 318 K/mm3 (142-424); Red Blood Count 4.51 M/mm3 (4.20-5.40); Red Cell Distribution Width 15.3 % (11.5-17.5); White Blood Count 13.5 K/mm3 (4.8-10.8)
[2021-07-10 13:31] VITALS: BP 125/95; PULSE 116; RESP 16; O2SAT 98
[2021-07-10 13:32] LABS: MANUAL DIFFERENTIAL MANUAL DIFFERENTIAL (MANUAL DIFF)
[2021-07-10 13:33] LABS: VBG Base Excess -12.1 mmol/L (-2.4-2.3); VBG HCO3 15.2 mmol/L (23-30); VBG Oxygen Saturation 84.6 % (50-70); VBG PCO2 36.2 mmol/L (35-51); VBG PH 7.24 mmol/L (7.31-7.41); VBG PO2 54.8 mmol/L (28-40); VBG Total CO2 16.3 mmol/L (23-27)
[2021-07-10 13:37] LABS: Chloride 104 mmol/L (98-107); Potassium 4.1 mmoL/L (3.5-5.1); Sodium 136 mmol/L (136-145)
[2021-07-10 13:40] LABS: Blood Urea Nitrogen 10 mg/dl (7-17); Creatinine Clearance Estimated 200 mL/min (50-200); Estimated Glomerular Filt Rate 117 ml/min (>60); GFR (African American) 142 ML/MIN (>60)
[2021-07-10 13:41] LABS: Anion Gap 20.1 mEq/L (5-15); Calcium 8.8 mg/dl (8.4-10.2); Carbon Dioxide 16 mmol/L (22.0-30.0)
[2021-07-10 13:42] LABS: Anisocytosis 1+; Lymphocytes % 7 % (10-50); Microcytosis 1+; Monocytes % 2 % (2-9); Neutrophils % 91 % (42-76); Platelet Estimate Normal; Total Cells Counted 100
[2021-07-10 13:43] LABS: Acetone, Serum (Rapid) Moderate (None Detect)
[2021-07-10 13:45] LABS: Glucose 423 mg/dl (74-100)
[2021-07-10 14:30] VITALS: BP 128/90; PULSE 108; RESP 16; O2SAT 98
[2021-07-10 15:31] VITALS: BP 131/93; PULSE 96; RESP 16; O2SAT 98
--- NOTE | 2021-07-10 15:42 | PC.NURSE ---
PT TOOK BLOOD SUGAR WITH HER ACCUCHECK WITH READING OF 147
[2021-07-10 15:50] LABS: VBG Base Excess -7.7 mmol/L (-2.4-2.3); VBG HCO3 18.5 mmol/L (23-30); VBG Oxygen Saturation 89.2 % (50-70); VBG PCO2 37.1 mmol/L (35-51); VBG PH 7.32 mmol/L (7.31-7.41); VBG PO2 59.9 mmol/L (28-40); VBG Total CO2 19.6 mmol/L (23-27)
[2021-07-10 16:00] VITALS: BP 141/84; PULSE 99; RESP 12; O2SAT 100
[2021-07-10 16:44] LABS: Anion Gap 11.9 mEq/L (5-15); Blood Urea Nitrogen 8 mg/dl (7-17); Carbon Dioxide 18 mmol/L (22.0-30.0); Chloride 112 mmol/L (98-107); Creatinine Clearance Estimated 300 mL/min (50-200); Estimated Glomerular Filt Rate 187 ml/min (>60); GFR (African American) 227 ML/MIN (>60); Glucose 124 mg/dl (74-100); Potassium 3.9 mmoL/L (3.5-5.1); Sodium 138 mmol/L (136-145)
[2021-07-10 16:59] LABS: Calcium 7.1 mg/dl (8.4-10.2)
[2021-07-10 17:04] VITALS: BP 129/89; PULSE 102; RESP 20; TEMP 36.6; O2SAT 98
== END 2021-07-10 17:07 | disposition home or self-care (01) ==
PROVIDERS: Emergency Provider Emergency Medicine
DX: E86.0 Dehydration (principal); E10.65 Type 1 diabetes mellitus with hyperglycemia; F41.8 Other specified anxiety disorders; I10 Essential (primary) hypertension; E03.9 Hypothyroidism, unspecified; Z79.899 Other long term (current) drug therapy
CPT/HCPCS: 80048; 81001; 82009; 82803; 85007; 85025; 96365; 96367; 96375; 99283; J1642

== ENCOUNTER 2021-07-11 06:46 | Observation (INO) | payer OTHER, SELFPAY ==
[2021-07-11] VITALS (19 sets, daily range): BP systolic 106–140; BP diastolic 50–97; PULSE 83–126; RESP 18–22; TEMP 36.6–37.1; O2SAT 95–100; BMI 37.2; BMI 38.7; BMI 36.1
--- NOTE | 2021-07-11 06:48 | XR_ITS ---
PROCEDURE: XR CHEST 2V CLINICAL HISTORY: cough COMPARISON: CT AGCHEST CT angio chest from 02/10/2019 CR XR CHEST PORTABLE from 07/22/2020 CR XR CHEST PORTABLE from 08/09/2020 CR XR CHEST 2V from 01/05/2021 FINDINGS: The cardiomediastinal silhouette and pulmonary vascularity are within normal limits. The lungs are clear without infiltrates, suspicious nodules, or pleural effusions. Right IJ MediPort catheter present with tip in the region the SVC IMPRESSION: No change with no acute finding Dictated by: Agustin Yu MD 07/11/2021 09:20 Agustin Yu MD in [facility] 07/11/2021 09:20
--- NOTE | 2021-07-11 06:51 | PC.NURSE ---
pt BG 525 on arrival
--- NOTE | 2021-07-11 06:58 | ECG_ITS ---
APPROVED REPORT Exam: Resting ECG HR:132 bpm ECG Measurements Heart Rate 132 AXES NJ 150 P 64 QRSd 88 QRS 56 QT 298 T 44 QTc 441 Conclusion Sinus tachycardia Late r wave progression Abnormal ECG Electronically signed by : Km Reynaga MD 07/11/2021 16:54:31
[2021-07-11 07:16] LABS: Basophils # 0.2 K/mm3 (0-0.2); Basophils % 0.7 % (0.1-2.0); Eosinophils # 0.1 K/mm3 (0.0-0.4); Eosinophils % 0.5 % (0.1-12.0); Hematocrit 38.5 % (37.0-47.0); Hemoglobin 11.9 g/dL (12.2-16.2); Lymphocytes # 2.9 K/mm3 (0.7-4.5); Lymphocytes % 13.5 % (10-50); Mean Corpuscular HGB Conc 30.8 g/dL (31.8-35.4); Mean Corpuscular Hemoglobin 25.4 pg (27.0-31.2); Mean Corpuscular Volume 82.5 fl (81-99); Mean Platelet Volume 9.3 fl (7.4-10.4); Monocytes # 0.4 K/mm3 (0.1-1.0); Monocytes % 1.9 % (1.7-9.3); Neutrophils % 83.4 % (37.0-80.0); Platelet Count 495 K/mm3 (142-424); Red Blood Count 4.67 M/mm3 (4.20-5.40); Red Cell Distribution Width 15.5 % (11.5-17.5); White Blood Count 21.6 K/mm3 (4.8-10.8)
[2021-07-11 07:19] LABS: Chloride 104 mmol/L (98-107); Potassium 5.3 mmoL/L (3.5-5.1); Sodium 139 mmol/L (136-145)
[2021-07-11 07:20] LABS: MANUAL DIFFERENTIAL MANUAL DIFFERENTIAL (MANUAL DIFF)
[2021-07-11 07:21] LABS: Amylase 69 U/L (30-110)
[2021-07-11 07:22] LABS: Alanine Aminotransferase 20 U/L (12-78); Albumin Level 4.4 g/dl (3.5-5.0); Albumin/Globulin Ratio 1.3 (1.1-1.8); Alkaline Phosphatase 227 U/L (38-126); Anion Gap 31.3 mEq/L (5-15); Aspartate Amino Transferase 23 U/L (14-36); Bilirubin,Total 0.4 mg/dl (0.2-1.3); Blood Urea Nitrogen 12 mg/dl (7-17); Creatinine Clearance Estimated 202 mL/min (50-200); Estimated Glomerular Filt Rate 98 ml/min (>60); GFR (African American) 119 ML/MIN (>60); Globulin 3.4 g/dL (1.3-3.2); Lipase 116 U/L (23-300); Total Protein,Serum 7.8 g/dl (6.3-8.2)
[2021-07-11 07:24] LABS: VBG Base Excess -18.8 mmol/L (-2.4-2.3); VBG HCO3 9.8 mmol/L (23-30); VBG Oxygen Saturation 91.5 % (50-70); VBG PCO2 27.6 mmol/L (35-51); VBG PO2 75.1 mmol/L (28-40); VBG Total CO2 10.6 mmol/L (23-27)
[2021-07-11 07:24] LABS: Carbon Dioxide 9 mmol/L (22.0-30.0)
[2021-07-11 07:25] LABS: Calcium 9.2 mg/dl (8.4-10.2); Glucose 623 mg/dl (74-100)
--- NOTE | 2021-07-11 07:25 | PC.NURSE ---
Addendum entered by Jose Rodriges RN 07/11/21 07:26: Spoke with lab. Critical glucose of 623 and CO2 of 9 reported. Repeated back and confirmed by Valerie. Original Note: Spoke with lab. Critical glucose of 623 and CO2 of 9 reported. Repeated back and confirmed by brent.
[2021-07-11 07:27] LABS: VBG PH 7.17 mmol/L (7.31-7.41)
--- NOTE | 2021-07-11 07:27 | PC.NURSE ---
RT called to report pH of 7.17 and BE of -18.8
[2021-07-11 07:30] LABS: Acetone, Serum (Rapid) Moderate (None Detect)
--- NOTE | 2021-07-11 07:31 | HMH.EDGENADL ---
ED Disposition Clinical Impression: IDDM (insulin dependent diabetes mellitus) Diabetic ketoacidosis Qualifiers: Diabetes mellitus type: type 1 Diabetes mellitus complication detail: without coma Qualified Code(s): E10.10 - Type 1 diabetes mellitus with ketoacidosis without coma Disposition: Admitted As Inpatient Condition on Discharge: Serious Instructions: DI for Hyperglycemia -- Adult - Critical Care Critical Care Time: No Attestation: On 07/11/21, the high probability of a clinically significant, sudden or life threatening deterioration of the following system(s) required my full and direct attention, intervention and personal management. The time I documented below is in addition to time spent performing reported procedures but includes the following listed in this critical care notation. Medical Decision Making - Medical Records Medical records reviewed: Yes: I reviewed the patient's medical records. - Jamari Inquiry Pt receiving controlled substance: No Vital Signs: 07/11/21 06:45 Temperature 97.9 F Temperature Source Oral Pulse Rate [Right] 126 H Respiratory Rate 20 Blood Pressure [Right Arm] 132/79 Blood Pressure Mean [Right Arm] 96 Blood Pressure Source [Right Arm] Automatic Cuff 02 Sat by Pulse Oximetry 100 Oxygen Delivery Method Room Air - Lab Data Lab results reviewed: Yes: I reviewed the patient's lab results. Lab Results 07/11/21 06:50: VBG pH 7.17 L, VBG pCO2 27.6 L, VBG pO2 75.1 H, VBG HCO3 9.8 L, VBG Total CO2 10.6 L, VBG O2 Saturation 91.5 H, VBG Base Excess -18.8 L 07/11/21 06:53: WBC 21.6 H* D, RBC 4.67, Hgb 11.9 L, Hct 38.5, MCV 82.5, MCH 25.4 L, MCHC 30.8 L, RDW 15.5, Plt Count 495 H D, MPV 9.3, Neut % (Auto) 83.4 H, Lymph % (Auto) 13.5, [place] % (Auto) 1.9, Eos % (Auto) 0.5, Baso % (Auto) 0.7, Neut # (Auto) 18.0 H, Lymph # (Auto) 2.9, [place] # (Auto) 0.4, Eos # (Auto) 0.1, Baso # (Auto) 0.2 07/11/21 06:53: Sodium 139, Potassium 5.3 H D, Chloride 104, Carbon Dioxide 9 L* D, Anion Gap 31.3 H, BUN 12 D, Creatinine 0.70 D, Estimated Creat Clear 202, Estimated GFR 98, Est GFR ( Amer) 119 D, Glucose 623 H* D, Calcium 9.2 D, Total Bilirubin 0.4, AST 23, ALT 20, Alkaline Phosphatase 227 H, Total Protein 7.8, Albumin 4.4, Globulin 3.4 H, Albumin/Globulin Ratio 1.3, Amylase 69, Lipase 116 07/11/21 06:53: Acetone Level Moderate Result diagrams: 07/11/21 06:53 07/11/21 06:53 Orders (Tests/Meds): ED MEDICATIONS Generic Name Dose Route Start Last Admin Trade Name Freq PRN Reason Stop Dose Admin Sodium Chloride 1,000 mls @ 999 mls/hr 07/11/21 07:00 07/11/21 07:04 Sod Chlor 0.9% 1000ml Bag IV 07/11/21 08:00 999 mls/hr .Q1H1M DALIA Administration Discontinued Medications Generic Name Dose Route Start Last Admin Trade Name Freq PRN Reason Stop Dose Admin Insulin Human Regular 5 unit 07/11/21 06:54 07/11/21 07:03 Insulin Human Regular 100 Units/Ml 10ml Vial IVP 07/11/21 06:55 5 unit ONCE ONE Administration Ondansetron HCl 4 mg 07/11/21 06:49 07/11/21 07:03 Ondansetron 4mg/2ml Vial IV 07/11/21 06:50 4 mg ONCE ONE Administration ORDERS Category Date Time Status CT abdomen pelvis w con Stat Cat Scan 07/11/21 06:48 Ordered XR chest 2V Stat Exams 07/11/21 06:48 Ordered Acetone, Serum (Rapid) Stat Lab 07/11/21 06:53 Results Amylase Stat Lab 07/11/21 06:53 Results C-Reactive Protein Stat Lab 07/11/21 06:53 Results Complete Blood Count Auto Diff Stat Lab 07/11/21 06:53 Results Comprehensive Metabolic Panel Stat Lab 07/11/21 06:53 Results Erythrocyte Sedimentation Rate Stat Lab 07/11/21 06:53 Received Lactic Acid Stat Lab 07/11/21 06:53 Received Levetiracetam (Keppra) Stat Lab 07/11/21 06:53 Received Lipase Stat Lab 07/11/21 06:53 Results Procalcitonin Stat Lab 07/11/21 06:53 Received Rapid PCR Covid and Flu A/B Stat Lab 07/11/21 06:51 Ordered T4 (Thyroxine) Stat Lab 07/11/21 06:53 Results Thyroid Stimulating Horm
--- NOTE | 2021-07-11 07:34 | PC.NURSE ---
CHRISTINE BRUNNER speaking with Dr. Ayala
[2021-07-11 07:35] LABS: Lactic Acid 3.6 mmol/L (0.7-2.1)
[2021-07-11 07:36] LABS: Troponin I < 0.01 ng/ml (0.00-0.034)
--- NOTE | 2021-07-11 07:37 | PC.NURSE ---
notified care management of admission, spoke with linda
--- NOTE | 2021-07-11 07:38 | PC.NURSE ---
Covid swab sent to lab at this time.
[2021-07-11 07:40] LABS: T4 (Thyroxine) 8.4 ug/dl (5.53-11.0)
--- NOTE | 2021-07-11 07:42 | PC.NURSE ---
Urine sent to lab at this time.
[2021-07-11 07:45] LABS: C-Reactive Protein 19.4 mg/L (0-4)
[2021-07-11 07:54] LABS: Erythrocyte Sedimentation Rate 26 mm/hr (0-20)
[2021-07-11 07:56] LABS: Procalcitonin 0.378 ng/mL (0.0-2.0)
[2021-07-11 07:58] LABS: Hypochromasia 2+; Lymphocytes % 10 % (10-50); Microcytosis 1+; Monocytes % 3 % (2-9); Neutrophils % 87 % (42-76); Platelet Estimate Normal; Total Cells Counted 100
[2021-07-11 08:11] LABS: Coronavirus 19, PCR Not Detected (NotDetected); Influenza A, PCR Not Detected (NotDetected); Influenza B, PCR Not Detected (NotDetected)
--- NOTE | 2021-07-11 08:41 | PC.NURSE ---
per nanny/household manager pt will be boarding in ER until a bed is available.
[2021-07-11 08:55] LABS: POC Glucose,Bedside 476 (70-110)
[2021-07-11 10:11] LABS: POC Glucose,Bedside 415 (70-110)
[2021-07-11 10:33] LABS: Microscopic, Urine URINE MICROSCOPIC (MICROSCOPIC)
[2021-07-11 10:35] LABS: Appearance,Urine CLEAR (Clear); Bilirubin,Urine Negative (Negative); Blood, Urine Negative (Negative); Color,Urine YELLOW (Yellow); Glucose,Urine (UA) 3+ (Negative); Ketones,Urine 3+ (Negative); Leukocyte Esterase,Urine Negative (Negative); Nitrate,Urine Negative (Negative); PH,Urine 5.5 (5.0-8.5); Protein,Urine Negative (Negative); Urobilinogen,Urine 0.2 EU/dl (0.2)
[2021-07-11 11:11] LABS: Reflex Lactic Add Lactic Reflex
[2021-07-11 11:52] LABS: POC Glucose,Bedside 290 (70-110)
[2021-07-11 11:59] LABS: Lactic Acid Follow Up (RFLX 1) 1.2 mmol/L (0.7-2.1)
--- NOTE | 2021-07-11 12:48 | PC.NURSE ---
Fingerstick is 219 at this time.
[2021-07-11 12:53] LABS: POC Glucose,Bedside 219 (70-110)
[2021-07-11 13:37] LABS: Anion Gap 24.2 mEq/L (5-15); Blood Urea Nitrogen 10 mg/dl (7-17); Calcium 8.7 mg/dl (8.4-10.2); Carbon Dioxide 12 mmol/L (22.0-30.0); Chloride 112 mmol/L (98-107); Creatinine Clearance Estimated 236 mL/min (50-200); Estimated Glomerular Filt Rate 117 ml/min (>60); GFR (African American) 142 ML/MIN (>60); Glucose 232 mg/dl (74-100); Potassium 5.2 mmoL/L (3.5-5.1); Sodium 143 mmol/L (136-145)
--- NOTE | 2021-07-11 14:22 | PC.NURSE ---
report called to Jessica Westfall RN
--- NOTE | 2021-07-11 15:37 | P.CONPHA_ITS ---
[facility] VTE Monitoring - Patient Demographics Admission date: 07/11/21 Report Date: 07/11/21 Time: 15:37 Allergies/Adverse Reactions: Patient Allergies buspirone [BUSPIRONE] Allergy (Severe, Verified 04/01/21 08:54) Seizure nitrofurantoin [NITROFURANTOIN] Allergy (Severe, Verified 04/01/21 08:54) Seizure sulfamethoxazole [From BACTRIM] Allergy (Severe, Verified 04/01/21 08:54) Seizure trimethoprim [From BACTRIM] Allergy (Severe, Verified 04/01/21 08:54) Seizure topiramate [From TOPAMAX] Allergy (Unknown, Verified 04/01/21 08:54) adhesive tape Adverse Reaction (Intermediate, Verified 04/01/21 08:54) SKIN IRRITATION Height: 1.6 m Weight: 92.533 kg Patient Problems: Current Active Problems IDDM (insulin dependent diabetes mellitus) (Chronic) Diabetic ketoacidosis (Acute) - VTE Risk Labs: VTE Related Lab Results Hgb 11.9 g/dL (12.2-16.2) L 07/11/21 06:53 Hct 38.5 % (37.0-47.0) 07/11/21 06:53 Plt Count 495 K/mm3 (142-424) H D 07/11/21 06:53 BUN 10 mg/dl (7-17) 07/11/21 13:10 Creatinine 0.60 mg/dl (0.52-1.04) 07/11/21 13:10 Estimated Creat Clear 236 mL/min (50-200) 07/11/21 13:10 - Prophylaxis VTE Prophylaxis Ordered?: Yes Types of VTE Prophylaxis: TEDS Knee High Location of Applied Device: Bilateral Lower Extremeties
[2021-07-11 15:39] LABS: Chloride 112 mmol/L (98-107); Potassium 4.3 mmoL/L (3.5-5.1); Sodium 142 mmol/L (136-145)
[2021-07-11 15:42] LABS: Anion Gap 20.3 mEq/L (5-15); Blood Urea Nitrogen 8 mg/dl (7-17); Carbon Dioxide 14 mmol/L (22.0-30.0); Creatinine Clearance Estimated 200 mL/min (50-200); Estimated Glomerular Filt Rate 117 ml/min (>60); GFR (African American) 142 ML/MIN (>60); Magnesium 1.8 mg/dl (1.6-2.3); Phosphorous 2.4 mg/dl (2.5-4.5)
[2021-07-11 15:43] LABS: Calcium 8.4 mg/dl (8.4-10.2); Glucose 162 mg/dl (74-100)
[2021-07-11 17:14] LABS: POC Glucose,Bedside 153 (70-110)
[2021-07-11 17:14] LABS: POC Glucose,Bedside 119 (70-110)
--- NOTE | 2021-07-11 18:17 | HMH.HP ---
*Admission Date: 07/11/21 *Chief complaint: nausea, emesis, DKA *History of present illness: Ms. Bolton is a 31-year-old female with seizure disorder, poorly controlled type 1 diabetes, and gastroparesis. Presented to the ER twice yesterday due to worsening nausea, fatigue, tachycardia. She was initially referred from our clinic as she presented with emesis and HI blood sugar on her CGM. she had improved glucose control in the ED and was sent home after tolerating PO intake. On repeat arrival last night she was found to be in mild DKA and admitted for treatment per protocol. Initiated on insulin drip and IV fluids. She has been in the ED all day due to room availability. Labs improving, gap down from 30 to 20. Reports improved appetite and decreased nausea. Remains afebrile and hemodynamically stable. Of note, was given 15 units of her Lantus this morning. Discussed repeating another 15 units tonight given her improvement in glucose to help close her gap and get her off of her drip tonight. If tolerates p.o. intake and gap closes on next set of labs, discussed transitioning to basal bolus regimen with ACHS sliding scale. Patient takes her long-acting insulin in the morning. No other acute complaints at this time [facility] History I have reviewed the patient's past medical history: Yes Medical History: Reports:: Anxiety, Arrhythmia, Deep Vein Thrombosis, Depression, Diabetes Mellitus Type 1, Hypertension, Migraine, Palpitations, Pulmonary Embolism, Seizures Denies:: Cancer, Diabetes Mellitus Type 2, Internal Pacemaker, MRSA *Have you ever received a pneumonia vaccine?: Yes *Have you received a flu vaccine this season?: Yes Other Medical History: Reports: Anemia, Hypothyroidism, Other. Denies: Blood Transfusion Reaction Laterality Cases: Bilateral: Other Other Surgeries: Yes: Appendectomy, Cholecystectomy, Dilation and Curettage, Hysterectomy-Partial, Tubal Ligation, Other (RT EYE,BACK,POWER PORT). No: Pacemaker Amputation: No Fractures: No - *Social History Smoking Status: Former smoker Tobacco Type: cigarettes # Packs/Day (cigarettes): 1 #Yrs smoked (if former smoker): 4 Alcohol Intake: never Alcohol Intake Frequency:: holidays/special occasions only Substance Use Type: marijuana *Occupational Status:: unemployed Housing: apartment Household Members: other *Travel in the last 8 weeks: None - Psychiatric History Pschychiatric History:: Reports:: Anxiety, Depression Family Hx:: Diabetes, Kidney Disease, Mental illness Review of Systems - Review of Systems Review of systems:: pertinent systems reviewed and negative unless documented below (14 point review of systems performed, pertinent positives and negatives as per HPI) - *Neurologic Reports seizure-like activity, Reports weakness, Denies localized weakness Meds Home Medications Medication Instructions Recorded Confirmed Type OXcarbazepine [Trileptal 300mg 1,200 mg PO BID 11/03/18 07/11/21 History tablet] levETIRAcetam [Levetiracetam] 2,500 mg PO BID 01/29/20 07/11/21 History Levothyroxine Sodium 25 mcg PO DAILY 30 Days #30 tab 08/18/20 07/11/21 Rx [Levothyroxine 25mcg (0.025mg) Tab] Ondansetron [Zofran 4mg ODT] 4 mg PO TIDP PRN #15 tab 01/06/21 07/11/21 Rx insulin glargine 100 unit/mL (3 70 unit SQ AMLAB ml 02/10/21 07/11/21 History mL) subcutaneous pen insulin lispro 100 unit/mL 25 unit SQ AC ml 02/10/21 07/11/21 History subcutaneous solution Gabapentin 800 mg PO TID 06/30/21 07/11/21 History Promethazine HCl [Phenergan 25mg 25 mg PO Q6HP PRN 07/01/21 07/11/21 History tab] Venlafaxine HCl [Venlafaxine HCl 150 mg PO DAILY 07/01/21 07/11/21 History ER] lisinopriL [Zestril 5mg 5 mg PO DAILY 07/01/21 07/11/21 History Tablet] Apixaban [Eliquis 5mg tab] 5 mg PO BID 07/11/21 07/11/21 History Allergies Allergy/AdvReac Type Severity Reaction Status Date / Time buspirone [BUSPIRONE] Allergy Severe Seizure Verified 04/01/21 08:54
--- NOTE | 2021-07-11 18:44 | PC.NURSE ---
PT IS SITTING UP IN THE BED SIPPING ON CHICKEN BROTH AND EATING SOME CRACKERS. ALERT AND ORIENTED X4. PT STATES SHE IS FEELING SOMEWHAT BETTER. PCP ORDERED ZOFRAN FOR HER STOMACH NEEDED. PT HAS BEEN UP AMBULATING TO THE BATHROOM INDEPENDENTLY. PCP STATED HE WAS OKAY WITH PT USING HER OWN CONTINUOUS GLUCOSE MONITOR INSTEAD OF STAFF STICKING HER FINGERS. PT'S LAST GLUCOSE CHECK WAS WITH HER MONITOR AND IT WAS 102. PT HAS D5NS INFUSING PER DKA PROTOCOL AND INSULIN DRIP @1 UNIT/HR. LUNG SOUNDS CLEAR. ABDOMEN SOFT/NON TENDER WITH ACTIVE BOWEL SOUNDS. VSS. WILL CONTINUE TO MONITOR.
[2021-07-11 19:35] LABS: Anion Gap 15.9 mEq/L (5-15); Blood Urea Nitrogen 8 mg/dl (7-17); Calcium 8.1 mg/dl (8.4-10.2); Carbon Dioxide 15 mmol/L (22.0-30.0); Chloride 111 mmol/L (98-107); Creatinine Clearance Estimated 240 mL/min (50-200); Estimated Glomerular Filt Rate 145 ml/min (>60); GFR (African American) 175 ML/MIN (>60); Glucose 137 mg/dl (74-100); Potassium 3.9 mmoL/L (3.5-5.1); Sodium 138 mmol/L (136-145)
[2021-07-11 22:46] LABS: Chloride 110 mmol/L (98-107); Potassium 3.6 mmoL/L (3.5-5.1); Sodium 136 mmol/L (136-145)
[2021-07-11 22:49] LABS: Anion Gap 12.6 mEq/L (5-15); Blood Urea Nitrogen 7 mg/dl (7-17); Calcium 7.7 mg/dl (8.4-10.2); Carbon Dioxide 17 mmol/L (22.0-30.0); Creatinine Clearance Estimated 240 mL/min (50-200); Estimated Glomerular Filt Rate 145 ml/min (>60); GFR (African American) 175 ML/MIN (>60)
[2021-07-11 22:51] LABS: Glucose 199 mg/dl (74-100)
[2021-07-12] VITALS (8 sets, daily range): BP systolic 109–120; BP diastolic 63–80; PULSE 65–89; RESP 20; TEMP 36.5–36.6; O2SAT 96–100; BMI 36.9
[2021-07-12 03:07] LABS: Anion Gap 10.5 mEq/L (5-15); Blood Urea Nitrogen 7 mg/dl (7-17); Calcium 7.8 mg/dl (8.4-10.2); Carbon Dioxide 19 mmol/L (22.0-30.0); Chloride 111 mmol/L (98-107); Creatinine Clearance Estimated 300 mL/min (50-200); Estimated Glomerular Filt Rate 187 ml/min (>60); GFR (African American) 227 ML/MIN (>60); Magnesium 1.7 mg/dl (1.6-2.3); Phosphorous 2.1 mg/dl (2.5-4.5); Potassium 3.5 mmoL/L (3.5-5.1); Sodium 137 mmol/L (136-145)
[2021-07-12 03:12] LABS: Glucose 157 mg/dl (74-100)
[2021-07-12 06:35] LABS: Chloride 111 mmol/L (98-107); Potassium 3.7 mmoL/L (3.5-5.1); Sodium 137 mmol/L (136-145)
[2021-07-12 06:38] LABS: Anion Gap 11.7 mEq/L (5-15); Blood Urea Nitrogen 6 mg/dl (7-17); Carbon Dioxide 18 mmol/L (22.0-30.0); Creatinine Clearance Estimated 307 mL/min (50-200); Estimated Glomerular Filt Rate 187 ml/min (>60); GFR (African American) 227 ML/MIN (>60)
[2021-07-12 06:39] LABS: Calcium 7.7 mg/dl (8.4-10.2); Glucose 169 mg/dl (74-100)
--- NOTE | 2021-07-12 08:02 | HMH.DCSUM ---
General - General Admission date:: 07/11/21 Discharge date: 07/12/21 HPI HPI: Ms. Bolton is a 31-year-old female with seizure disorder, poorly controlled type 1 diabetes, and gastroparesis. Presented to the ER twice yesterday due to worsening nausea, fatigue, tachycardia. She was initially referred from our clinic as she presented with emesis and HI blood sugar on her CGM. she had improved glucose control in the ED and was sent home after tolerating PO intake. On repeat arrival last night she was found to be in mild DKA and admitted for treatment per protocol. Initiated on insulin drip and IV fluids. She has been in the ED all day due to room availability. Labs improving, gap down from 30 to 20. Reports improved appetite and decreased nausea. Remains afebrile and hemodynamically stable. Of note, was given 15 units of her Lantus this morning. Discussed repeating another 15 units tonight given her improvement in glucose to help close her gap and get her off of her drip tonight. If tolerates p.o. intake and gap closes on next set of labs, discussed transitioning to basal bolus regimen with ACHS sliding scale. Patient takes her long-acting insulin in the morning. No other acute complaints at this time Hospital Course Hospital Course: Patient was admitted, treated with insulin drip, IV fluids and her anion gap lows and DKA resolved very quickly. This morning when I walked in the room patient had eaten 100% of her breakfast which included reis, scrambled eggs, toast and cereal with milk but complained of some mild nausea. With a long discussion about gastroparesis, and it sounds like she gets hungry and eats quite a big meal and then struggles with gastroparesis symptoms then vomits, which tends to set off her vomiting/entry into her DKA. We discussed the role of exercise helping gastric motility in her overall health and diabetes. Currently she has absolutely no exercise program and I recommend starting off with a 10-minute brisk walk daily. Also recommended smaller, more frequent meals. Also recommended increasing mealtime insulin to 30 units. She will follow-up with our office on . Objective Vital signs: Temp Pulse Resp BP Pulse Ox 97.7 F 73 20 116/74 100 07/12/21 04:00 07/12/21 07:00 07/12/21 04:00 07/12/21 07:00 07/12/21 07:00 no acute distress - *Routine HEENT Exam Head: Present: normocephalic Eye: Present: EOMI, PERRL ENT: Present: mucous membranes moist - *Routine Neck Exam Present: supple - *Routine Respiratory Exam Present: CTA bilaterally - *Routine Cardiovascular Exam Present: RRR - *Routine Abdominal Exam Present: soft, normoactive bowel sounds. Absent: tenderness - *Routine Extremities Exam Absent: cyanosis, clubbing, edema - *Routine Skin Exam Present: warm. Absent: rash - Detailed Eye Exam Eyelids: Bilateral normal inspection Results Labs on day of discharge: Labs from last 24 hours 07/12/21 07/12/21 07/11/21 06:00 02:30 22:32 Sodium 137 137 136 Potassium 3.7 3.5 3.6 Chloride 111 H 111 H 110 H Carbon Dioxide 18 L 19 L 17 L Anion Gap 11.7 10.5 12.6 BUN 6 L 7 7 Creatinine 0.40 L 0.40 L 0.50 L Estimated Creat Clear 307 H 300 240 Estimated GFR 187 187 145 Est GFR ( Amer) 227 227 D 175 Glucose 169 H 157 H D 199 H D POC Glucose Lactate Calcium 7.7 L 7.8 L 7.7 L Phosphorus 2.1 L Magnesium 1.7 Urine Color Urine Appearance Urine pH Ur Specific [place] Urine Protein Urine Glucose (UA) Urine Ketones Urine Blood Urine Nitrate Urine Bilirubin Urine Urobilinogen Ur Leukocyte Esterase Urine RBC Urine WBC Ur Squamous Epith Cells Urine Bacteria SARS-CoV-2 (PCR) Influenza A Untype (PCR) Influenza Type B (PCR) 07/11/21 07/11/21 07/11/21 18:55 16:52 15:31 Sodium 138 Potassium 3.9 Chloride 111 H Carbon Dioxid
[2021-07-14 11:18] LABS: Levetiracetam (Keppra) 23.6 ug/mL (10.0-40.0)
== END 2021-07-12 10:59 | disposition home or self-care (01) ==
LOC: ER 07:41 → 2ND 07-12 07:52
PROVIDERS: Admitting Provider Internal Medicine Adolescent Medicine; Emergency Provider Emergency Medicine; PCP Internal Medicine Adolescent Medicine; Visit Provider Internal Medicine Adolescent Medicine
DX: E11.10 Type 2 diabetes mellitus with ketoacidosis without coma (principal); Z79.01 Long term (current) use of anticoagulants; G40.909 Epilepsy, unspecified, not intractable, without status epilepticus; I10 Essential (primary) hypertension; G43.909 Migraine, unspecified, not intractable, without status migrainosus; E03.9 Hypothyroidism, unspecified; Z91.19 Patient's noncompliance with other medical treatment and regimen; E11.43 Type 2 diabetes mellitus with diabetic autonomic (poly)neuropathy; E11.65 Type 2 diabetes mellitus with hyperglycemia; K31.84 Gastroparesis; Z79.4 Long term (current) use of insulin; Z20.822 Contact with and (suspected) exposure to COVID-19
CPT/HCPCS: 36415; 71046; 80048; 80053; 80177; 81001; 82009; 82150; 82803; 82962; 83605; 83690; 83735; 84100; 84145; 84436; 84443; 84484; 85007; 85025; 85651; 86140; 93005; 96365; 96367; 96372; 96375; 99283; 99284; G0378; J1642; J2405; U0003

== ENCOUNTER → 2021-09-05 18:01 | Outpatient (CLI) | payer OTHER, SELFPAY ==
[2021-09-05 18:56] LABS: Basophils # 0.1 K/mm3 (0-0.2); Basophils % 0.8 % (0.1-2.0); Eosinophils % 0.6 % (0.1-12.0); Hemoglobin 12.4 g/dL (12.2-16.2); Lymphocytes # 2.2 K/mm3 (0.7-4.5); Lymphocytes % 33.3 % (10-50); Mean Corpuscular HGB Conc 32.6 g/dL (31.8-35.4); Mean Corpuscular Hemoglobin 25.5 pg (27.0-31.2); Mean Corpuscular Volume 78.2 fl (81-99); Mean Platelet Volume 8.6 fl (7.4-10.4); Monocytes # 0.3 K/mm3 (0.1-1.0); Monocytes % 4.1 % (1.7-9.3); Neutrophils # 4.1 K/mm3 (1.8-7.8); Neutrophils % 61.2 % (37.0-80.0); Platelet Count 315 K/mm3 (142-424); Red Blood Count 4.87 M/mm3 (4.20-5.40); White Blood Count 6.6 K/mm3 (4.8-10.8)
[2021-09-05 19:12] LABS: Acetone, Serum (Rapid) Detected (None Detect)
[2021-09-05 20:20] LABS: Chloride 98 mmol/L (98-107); Potassium 4.6 mmoL/L (3.5-5.1); Sodium 131 mmol/L (136-145)
[2021-09-05 20:22] LABS: Blood Urea Nitrogen 10 mg/dl (7-17); Estimated Glomerular Filt Rate 145 ml/min (>60); GFR (African American) 175 ML/MIN (>60)
[2021-09-05 20:23] LABS: Alanine Aminotransferase 136 U/L (12-78); Albumin Level 4.4 g/dl (3.5-5.0); Albumin/Globulin Ratio 1.1 (1.1-1.8); Alkaline Phosphatase 206 U/L (38-126); Anion Gap 17.6 mEq/L (5-15); Aspartate Amino Transferase 40 U/L (14-36); Bilirubin,Total 0.2 mg/dl (0.2-1.3); Carbon Dioxide 20 mmol/L (22.0-30.0); Globulin 3.9 g/dL (1.3-3.2); Total Protein,Serum 8.3 g/dl (6.3-8.2)
[2021-09-05 20:24] LABS: Calcium 9.4 mg/dl (8.4-10.2)
[2021-09-05 20:32] LABS: Glucose 446 mg/dl (74-100)
== END ==
PROVIDERS: Visit Provider Nurse Practitioner Family
DX: E11.65 Type 2 diabetes mellitus with hyperglycemia (principal); R05.9 Cough, unspecified; J06.9 Acute upper respiratory infection, unspecified
CPT/HCPCS: 80053; 82009; 85025

== ENCOUNTER 2021-09-06 10:48 | Emergency (ER) | payer OTHER, SELFPAY ==
[2021-09-06 10:49] VITALS: BP 133/89; PULSE 86; RESP 16; TEMP 37; O2SAT 99; BMI 36.3
--- NOTE | 2021-09-06 10:55 | HMH.EDGENADL ---
ED Disposition Clinical Impression: Ketonemia Disposition: Home, Self-Care Condition on Discharge: Good Instructions: DI for Hyperglycemia -- Adult Additional Instructions: Drink plenty of fluids. Use your insulin every day as prescribed/instructed. Follow-up with your primary care provider, call Wednesday to make appointment. Referrals: Srini Ayala MD [Primary Care Provider] - - Critical Care Critical Care Time: No Attestation: On 09/06/21, the high probability of a clinically significant, sudden or life threatening deterioration of the following system(s) required my full and direct attention, intervention and personal management. The time I documented below is in addition to time spent performing reported procedures but includes the following listed in this critical care notation. Medical Decision Making - Jamari Inquiry Pt receiving controlled substance: No Vital Signs: 09/06/21 10:49 09/06/21 12:30 09/06/21 13:00 Temperature 98.6 F Temperature Source Oral Pulse Rate 84 90 Pulse Rate [Right Radial] 86 Respiratory Rate 16 16 15 Blood Pressure 117/67 128/75 Blood Pressure [Right Arm] 133/89 Blood Pressure Mean 97 91 Blood Pressure Mean [Right Arm] 103 Blood Pressure Source [Right Arm] Automatic Cuff Blood Pressure Position Blood Pressure Position [Right Arm] Sitting 02 Sat by Pulse Oximetry 99 98 98 Oxygen Delivery Method Room Air 09/06/21 14:35 09/06/21 15:04 Temperature 98.3 F 98 F Temperature Source Oral Pulse Rate 87 78 Pulse Rate [Right Radial] Respiratory Rate 14 16 Blood Pressure 121/71 123/74 Blood Pressure [Right Arm] Blood Pressure Mean Blood Pressure Mean [Right Arm] Blood Pressure Source [Right Arm] Blood Pressure Position Sitting Blood Pressure Position [Right Arm] 02 Sat by Pulse Oximetry Oxygen Delivery Method Room Air - Lab Data Lab Results 09/06/21 10:56: POC Glucose 333 H* 09/06/21 11:05: VBG pH 7.33, VBG pCO2 48.0, VBG pO2 72.2 H, VBG HCO3 24.9, VBG Total CO2 26.4, VBG O2 Saturation 92.9 H, VBG Base Excess -1.0 09/06/21 11:57: WBC 6.4, RBC 4.60, Hgb 11.8 L, Hct 35.7 L, MCV 77.5 L, MCH 25.6 L, MCHC 33.0, RDW 15.1, Plt Count 316, MPV 8.3, Neut % (Auto) 57.1, Lymph % (Auto) 36.0, [place] % (Auto) 4.8, Eos % (Auto) 1.0, Baso % (Auto) 1.0, Neut # (Auto) 3.6, Lymph # (Auto) 2.3, [place] # (Auto) 0.3, Eos # (Auto) 0.1, Baso # (Auto) 0.1 09/06/21 11:57: Sodium 131 L, Potassium 4.4, Chloride 99, Carbon Dioxide 24, Anion Gap 12.4, BUN 9, Creatinine 0.50 L, Estimated Creat Clear 242, Estimated GFR 145, Est GFR ( Amer) 175, Glucose 329 H D, Calcium 9.1, Phosphorus 3.5, Magnesium 1.6, Total Bilirubin 0.2, AST 34, ALT 102 H, Alkaline Phosphatase 188 H, Total Protein 8.1, Albumin 4.1, Globulin 4.0 H, Albumin/Globulin Ratio 1.0 L, Acetone Level Small 09/06/21 13:30: Urine Color Yellow, Urine Appearance Clear, Urine pH 6.0, Ur Specific [place] 1.020, Urine Protein Trace, Urine Glucose (UA) 3+, Urine Ketones 2+, Urine Blood Negative, Urine Nitrate Negative, Urine Bilirubin Negative, Urine Urobilinogen 0.2, Ur Leukocyte Esterase Negative, Urine RBC 3-5, Ur Squamous Epith Cells 5-10 Result diagrams: 09/06/21 11:57 09/06/21 11:57 Orders (Tests/Meds): ED MEDICATIONS Discontinued Medications Generic Name Dose Route Start Last Admin Trade Name Freq PRN Reason Stop Dose Admin Sodium Chloride 1,000 ml 09/06/21 11:04 09/06/21 12:03 Sodium Chloride 0.9% 1000ml Bag IV 09/06/21 11:05 1,000 ml BOLUS ONE Administration - Physician Consults Physician Consulted: [place] Time: 12:01 Reason -: Pt condition Comment/Response: work-up pending. notified of patient's presence in ED. Additional Consult: [place] Time: 13:49 Reason -: Pt condition Comment/Response: Discharge after a liter of normal saline, advised to use her insulin as instructed, follow-up with PCP. Medical Decision Narrative: Has ketonemia and ketonuria, but no acidosis. pH,
[2021-09-06 11:04] LABS: POC Glucose,Bedside 333 (70-110)
[2021-09-06 12:05] LABS: Basophils # 0.1 K/mm3 (0-0.2); Eosinophils # 0.1 K/mm3 (0.0-0.4); Hematocrit 35.7 % (37.0-47.0); Hemoglobin 11.8 g/dL (12.2-16.2); Lymphocytes # 2.3 K/mm3 (0.7-4.5); Mean Corpuscular Hemoglobin 25.6 pg (27.0-31.2); Mean Corpuscular Volume 77.5 fl (81-99); Mean Platelet Volume 8.3 fl (7.4-10.4); Monocytes # 0.3 K/mm3 (0.1-1.0); Monocytes % 4.8 % (1.7-9.3); Neutrophils # 3.6 K/mm3 (1.8-7.8); Neutrophils % 57.1 % (37.0-80.0); Platelet Count 316 K/mm3 (142-424); Red Cell Distribution Width 15.1 % (11.5-17.5); White Blood Count 6.4 K/mm3 (4.8-10.8)
[2021-09-06 12:30] VITALS: BP 117/67; PULSE 84; RESP 16; O2SAT 98
[2021-09-06 12:38] LABS: Acetone, Serum (Rapid) Small (None Detect); Alanine Aminotransferase 102 U/L (12-78); Albumin Level 4.1 g/dl (3.5-5.0); Alkaline Phosphatase 188 U/L (38-126); Anion Gap 12.4 mEq/L (5-15); Aspartate Amino Transferase 34 U/L (14-36); Bilirubin,Total 0.2 mg/dl (0.2-1.3); Blood Urea Nitrogen 9 mg/dl (7-17); Calcium 9.1 mg/dl (8.4-10.2); Carbon Dioxide 24 mmol/L (22.0-30.0); Chloride 99 mmol/L (98-107); Creatinine Clearance Estimated 242 mL/min (50-200); Estimated Glomerular Filt Rate 145 ml/min (>60); GFR (African American) 175 ML/MIN (>60); Glucose 329 mg/dl (74-100); Magnesium 1.6 mg/dl (1.6-2.3); Phosphorous 3.5 mg/dl (2.5-4.5); Potassium 4.4 mmoL/L (3.5-5.1); Sodium 131 mmol/L (136-145); Total Protein,Serum 8.1 g/dl (6.3-8.2)
[2021-09-06 13:00] VITALS: BP 128/75; PULSE 90; RESP 15; O2SAT 98
[2021-09-06 13:12] LABS: VBG HCO3 24.9 mmol/L (23-30); VBG Oxygen Saturation 92.9 % (50-70); VBG PH 7.33 mmol/L (7.31-7.41); VBG PO2 72.2 mmol/L (28-40); VBG Total CO2 26.4 mmol/L (23-27)
[2021-09-06 13:50] LABS: Microscopic, Urine URINE MICROSCOPIC (MICROSCOPIC)
[2021-09-06 13:52] LABS: Appearance,Urine CLEAR (Clear); Bilirubin,Urine Negative (Negative); Blood, Urine Negative (Negative); Color,Urine YELLOW (Yellow); Glucose,Urine (UA) 3+ (Negative); Ketones,Urine 2+ (Negative); Leukocyte Esterase,Urine Negative (Negative); Nitrate,Urine Negative (Negative); Protein,Urine TRACE (Negative); Urobilinogen,Urine 0.2 EU/dl (0.2)
[2021-09-06 14:35] VITALS: BP 121/71; PULSE 87; RESP 14; TEMP 36.8; O2SAT 97
[2021-09-06 15:04] VITALS: BP 123/74; PULSE 78; RESP 16; TEMP 36.6; O2SAT 98
== END 2021-09-06 15:06 | disposition home or self-care (01) ==
PROVIDERS: Emergency Provider Emergency Medicine; PCP Internal Medicine Adolescent Medicine
DX: E10.65 Type 1 diabetes mellitus with hyperglycemia (principal); Z79.4 Long term (current) use of insulin
CPT/HCPCS: 80053; 81001; 82009; 82803; 82962; 83735; 84100; 85025; 96365; 99283; J1642

== ENCOUNTER → 2021-10-30 10:09 | Outpatient (CLI) | payer OTHER, SELFPAY ==
--- NOTE | 2021-10-30 10:33 | MR_ITS ---
PROCEDURE: MR LUMBAR SPINE WO/W CON CLINICAL INDICATION: CHRONIC BILATERAL LOW BACK PAIN COMPARISON: MR MR HEAD/BRAIN WO/W CON from 03/24/2021 TECHNIQUE: Standard multiplanar multiecho sequences are performed without and with contrast. 3-D MIP and myelographic images are also rendered and reviewed FINDINGS: There is normal alignment. The spinal cord ends at the L1-L2 level. L1-L2: Mild facet and ligamentum hypertrophic change. L2-L3: Mild facet and ligamentum hypertrophic change. L3-L4: Mild facet and ligamentum hypertrophic change with mild bilateral foraminal narrowing. L4-5: Moderate facet and ligamentum hypertrophic change with borderline canal stenosis. Bilateral lateral recess narrowing with mild to moderate bilateral foraminal narrowing. L4-5: Moderate facet and ligamentum hypertrophy with mild bulging disc slightly eccentric toward the right which is abutting the right S1 nerve root. Borderline canal stenosis. Moderate bilateral foraminal narrowing. Mild degenerative disc disease No abnormal enhancement No extruded herniated disc. IMPRESSION: Multilevel lumbar spondylosis with facet and ligamentum hypertrophic change with lateral recess and foraminal narrowing and borderline canal stenosis. Please see above for detailed description at each level. Asymmetric bulging disc at L5-S1 with facet and ligamentum hypertrophy which abuts the right S1 nerve root. No abnormal enhancement that would indicate epidural fibrosis. No extruded herniated disc. Dictated by: Agustin Yu MD 10/31/2021 09:21 Agustin Yu MD in [place] 10/31/2021 09:21
[2021-10-30 10:42] LABS: Chloride 88 mmol/L (98-107); Sodium 121 mmol/L (136-145)
[2021-10-30 10:43] LABS: Potassium 4.9 mmoL/L (3.5-5.1)
[2021-10-30 10:45] LABS: Alanine Aminotransferase 19 U/L (12-78); Albumin Level 4.3 g/dl (3.5-5.0); Albumin/Globulin Ratio 1.3 (1.1-1.8); Alkaline Phosphatase 177 U/L (38-126); Anion Gap 13.9 mEq/L (5-15); Aspartate Amino Transferase 32 U/L (14-36); Bilirubin,Total 0.2 mg/dl (0.2-1.3); Blood Urea Nitrogen 9 mg/dl (7-17); Calcium 9.3 mg/dl (8.4-10.2); Carbon Dioxide 24 mmol/L (22.0-30.0); Estimated Glomerular Filt Rate 145 ml/min (>60); GFR (African American) 175 ML/MIN (>60); Globulin 3.3 g/dL (1.3-3.2); Glucose 354 mg/dl (74-100); Total Protein,Serum 7.6 g/dl (6.3-8.2)
[2021-10-30 12:34] LABS: Hemoglobin A1C 8.8 % (4.0-6.0)
[2021-10-30 13:16] LABS: Basophils % 0.6 % (0.1-2.0); Eosinophils # 0.1 K/mm3 (0.0-0.4); Eosinophils % 1.1 % (0.1-12.0); Hematocrit 33.6 % (37.0-47.0); Hemoglobin 11.7 g/dL (12.2-16.2); Lymphocytes # 1.9 K/mm3 (0.7-4.5); Lymphocytes % 28.4 % (10-50); Mean Corpuscular HGB Conc 34.8 g/dL (31.8-35.4); Mean Corpuscular Hemoglobin 25.7 pg (27.0-31.2); Mean Corpuscular Volume 73.9 fl (81-99); Mean Platelet Volume 9.1 fl (7.4-10.4); Monocytes # 0.4 K/mm3 (0.1-1.0); Monocytes % 5.7 % (1.7-9.3); Neutrophils # 4.4 K/mm3 (1.8-7.8); Neutrophils % 64.3 % (37.0-80.0); Platelet Count 490 K/mm3 (142-424); Red Blood Count 4.55 M/mm3 (4.20-5.40); Red Cell Distribution Width 15.1 % (11.5-17.5); White Blood Count 6.8 K/mm3 (4.8-10.8)
== END ==
PROVIDERS: PCP Internal Medicine Adolescent Medicine; Visit Provider Neurological Surgery
DX: E11.9 Type 2 diabetes mellitus without complications (principal); M54.42 Lumbago with sciatica, left side; M54.41 Lumbago with sciatica, right side; G89.29 Other chronic pain; Z79.4 Long term (current) use of insulin
CPT/HCPCS: 36415; 72158; 76376; 80053; 83036; 85025; A9576

== ENCOUNTER → 2021-11-17 17:52 | Outpatient (CLI) | payer OTHER, SELFPAY ==
[2021-11-17 21:15] LABS: Alanine Aminotransferase 34 U/L (12-78); Albumin Level 4.7 g/dl (3.5-5.0); Albumin/Globulin Ratio 1.2 (1.1-1.8); Alkaline Phosphatase 208 U/L (38-126); Anion Gap 17.5 mEq/L (5-15); Aspartate Amino Transferase 36 U/L (14-36); Bilirubin,Total 0.2 mg/dl (0.2-1.3); Blood Urea Nitrogen 10 mg/dl (7-17); Calcium 9.8 mg/dl (8.4-10.2); Carbon Dioxide 23 mmol/L (22.0-30.0); Chloride 92 mmol/L (98-107); Estimated Glomerular Filt Rate 117 ml/min (>60); GFR (African American) 142 ML/MIN (>60); Globulin 3.9 g/dL (1.3-3.2); Glucose 300 mg/dl (74-100); Potassium 4.5 mmoL/L (3.5-5.1); Sodium 128 mmol/L (136-145); Total Protein,Serum 8.6 g/dl (6.3-8.2)
== END ==
PROVIDERS: Visit Provider Internal Medicine Adolescent Medicine
DX: E10.8 Type 1 diabetes mellitus with unspecified complications (principal); E03.9 Hypothyroidism, unspecified; Z79.4 Long term (current) use of insulin
CPT/HCPCS: 80053; 84443

== ENCOUNTER 2022-01-04 17:42 | Observation (INO) | payer OTHER, SELFPAY ==
[2022-01-04 17:51] VITALS: BP 139/66; PULSE 65; RESP 16; TEMP 36.8; O2SAT 100; BMI 38.6
[2022-01-04 17:54] LABS: POC Glucose,Bedside 242 (70-110)
[2022-01-04 18:37] LABS: Basophils # 0.1 K/mm3 (0-0.2); Basophils % 0.8 % (0.1-2.0); Eosinophils # 0.1 K/mm3 (0.0-0.4); Eosinophils % 0.7 % (0.1-12.0); Hematocrit 38.9 % (37.0-47.0); Lymphocytes % 17.6 % (10-50); Mean Corpuscular HGB Conc 33.4 g/dL (31.8-35.4); Mean Corpuscular Hemoglobin 25.9 pg (27.0-31.2); Mean Corpuscular Volume 77.4 fl (81-99); Monocytes # 0.4 K/mm3 (0.1-1.0); Neutrophils # 8.6 K/mm3 (1.8-7.8); Platelet Count 383 K/mm3 (142-424); Red Blood Count 5.03 M/mm3 (4.20-5.40); Red Cell Distribution Width 15.7 % (11.5-17.5); White Blood Count 11.2 K/mm3 (4.8-10.8)
[2022-01-04 18:51] LABS: Chloride 85 mmol/L (98-107); Potassium 4.3 mmoL/L (3.5-5.1); Sodium 116 mmol/L (136-145)
[2022-01-04 18:53] LABS: Blood Urea Nitrogen 4 mg/dl (7-17); Creatinine Clearance Estimated 321 mL/min (50-200); Estimated Glomerular Filt Rate 187 ml/min (>60); GFR (African American) 227 ML/MIN (>60)
[2022-01-04 18:54] LABS: Alanine Aminotransferase 31 U/L (12-78); Albumin Level 4.3 g/dl (3.5-5.0); Albumin/Globulin Ratio 1.1 (1.1-1.8); Alkaline Phosphatase 250 U/L (38-126); Anion Gap 15.3 mEq/L (5-15); Aspartate Amino Transferase 35 U/L (14-36); Bilirubin,Total 0.5 mg/dl (0.2-1.3); Calcium 8.9 mg/dl (8.4-10.2); Carbon Dioxide 20 mmol/L (22.0-30.0); Globulin 3.9 g/dL (1.3-3.2); Glucose 273 mg/dl (74-100); Total Protein,Serum 8.2 g/dl (6.3-8.2)
--- NOTE | 2022-01-04 18:55 | HMH.EDGENADL ---
ED Disposition Clinical Impression: Hyponatremia, Gastroenteritis Disposition: Admitted as Observation Condition on Discharge: Fair Referrals: Srini Ayala MD [Primary Care Provider] - - Critical Care Critical Care Time: No Attestation: On 01/04/22, the high probability of a clinically significant, sudden or life threatening deterioration of the following system(s) required my full and direct attention, intervention and personal management. The time I documented below is in addition to time spent performing reported procedures but includes the following listed in this critical care notation. Medical Decision Making - Jamari Inquiry Pt receiving controlled substance: No Vital Signs: 01/04/22 17:51 Temperature 98.2 F Temperature Source Oral Pulse Rate [Left Radial] 65 Respiratory Rate 16 Blood Pressure [Right Arm] 139/66 Blood Pressure Mean [Right Arm] 90 02 Sat by Pulse Oximetry 100 Oxygen Delivery Method Room Air - Lab Data Lab Results 01/04/22 17:47: POC Glucose 242 H 01/04/22 18:19: WBC 11.2 H, RBC 5.03, Hgb 13.0, Hct 38.9, MCV 77.4 L, MCH 25.9 L, MCHC 33.4, RDW 15.7, Plt Count 383, MPV 9.0, Neut % (Auto) 77.0, Lymph % (Auto) 17.6, [place] % (Auto) 4.0, Eos % (Auto) 0.7, Baso % (Auto) 0.8, Neut # (Auto) 8.6 H, Lymph # (Auto) 2.0, [place] # (Auto) 0.4, Eos # (Auto) 0.1, Baso # (Auto) 0.1 01/04/22 18:19: Sodium 116 L, Potassium 4.3, Chloride 85 L, Carbon Dioxide 20 L, Anion Gap 15.3 H, BUN 4 L, Creatinine 0.40 L, Estimated Creat Clear 321 H, Estimated GFR 187, Est GFR ( Amer) 227, Glucose 273 H, Calcium 8.9, Total Bilirubin 0.5, AST 35, ALT 31, Alkaline Phosphatase 250 H, Total Protein 8.2, Albumin 4.3, Globulin 3.9 H, Albumin/Globulin Ratio 1.1 01/04/22 18:19: Acetone Level None detected 01/04/22 19:00: VBG pH 7.32, VBG pCO2 37.0, VBG pO2 65.0 H, VBG HCO3 18.4 L, VBG Total CO2 19.6 L, VBG O2 Saturation 90.3 H, VBG Base Excess -7.8 L 01/04/22 19:20: Urine Color Yellow, Urine Appearance Sl cloudy, Urine pH 6.0, Ur Specific [place] 1.010, Urine Protein Trace, Urine Glucose (UA) 3+, Urine Ketones 3+, Urine Blood Negative, Urine Nitrate Negative, Urine Bilirubin Negative, Urine Urobilinogen 0.2, Ur Leukocyte Esterase Negative, Urine WBC Occasional, Ur Squamous Epith Cells 20-50, Urine Bacteria Trace Result diagrams: 01/04/22 18:19 01/04/22 18:19 Orders (Tests/Meds): ED MEDICATIONS Generic Name Dose Route Start Last Admin Trade Name Freq PRN Reason Stop Dose Admin Sodium Chloride 1,000 mls @ 999 mls/hr 01/04/22 18:30 01/04/22 19:02 Sod Chlor 0.9% 1000ml Bag IV 01/04/22 19:30 999 mls/hr .[id number] DALIA Administration Discontinued Medications Generic Name Dose Route Start Last Admin Trade Name Freq PRN Reason Stop Dose Admin Ondansetron HCl 4 mg 01/04/22 18:28 01/04/22 19:02 Ondansetron 4mg/2ml Vial IV 01/04/22 18:29 4 mg ONCE ONE Administration Promethazine HCl 12.5 mg 01/04/22 19:05 01/04/22 19:49 Promethazine Hcl 25mg/Ml 1ml Vial IV 01/04/22 19:06 12.5 mg ONCE ONE Administration Sodium Chloride 25 ml 01/04/22 19:05 01/04/22 19:55 Sodium Chloride 0.9% 25ml Bag IV 01/04/22 19:06 25 ml ONCE ONE Administration ORDERS Category Date Time Status Diarrhea 6-11 Panel, Cdiff PCR Stat Lab 01/04/22 19:05 Ordered Rapid PCR Covid and Flu A/B Stat Lab 01/04/22 19:07 Ordered - Physician Consults Physician Consulted: Jared Time: 20:00 Reason -: Admission Comment/Response: Agrees to admit the patient to the hospital. We discussed the patient's clinical information, including history, exam, laboratory and radiology results and ED course. Per hospital procedure, I will write temporary bridge inpatient orders on the patient. Specific orders requested by the admitting physician: Continue IV normal saline, recheck chemistries in the morning. Medical Decision Narrative: Patient will be admitted for very low sodium of 116. General Adult HPI - General Chi
[2022-01-04 19:03] LABS: Acetone, Serum (Rapid) None Detected (None Detect)
[2022-01-04 19:26] LABS: VBG Base Excess -7.8 mmol/L (-2.4-2.3); VBG HCO3 18.4 mmol/L (23-30); VBG Oxygen Saturation 90.3 % (50-70); VBG PH 7.32 mmol/L (7.31-7.41); VBG Total CO2 19.6 mmol/L (23-27)
[2022-01-04 19:31] LABS: Appearance,Urine SL CLOUDY (Clear); Bilirubin,Urine Negative (Negative); Blood, Urine Negative (Negative); Color,Urine YELLOW (Yellow); Glucose,Urine (UA) 3+ (Negative); Ketones,Urine 3+ (Negative); Leukocyte Esterase,Urine Negative (Negative); Nitrate,Urine Negative (Negative); Protein,Urine TRACE (Negative); Urobilinogen,Urine 0.2 EU/dl (0.2)
[2022-01-04 19:32] LABS: Microscopic, Urine URINE MICROSCOPIC (MICROSCOPIC)
[2022-01-04 19:33] LABS: Bacteria,Urine Trace /lpf; Squamous Epithelial Cell,Urine 20-50 #/hpf (0-5); WBC,Urine Occasional #/hpf (0-3)
--- NOTE | 2022-01-04 19:56 | PC.NURSE ---
Dr. Lee s/w Dr. Coleman
--- NOTE | 2022-01-04 19:58 | PC.NURSE ---
ED doctor on phone with Dr. Coleman
[2022-01-04 20:17] LABS: Coronavirus 19, PCR Not Detected (NotDetected); Influenza A, PCR Not Detected (NotDetected); Influenza B, PCR Not Detected (NotDetected)
[2022-01-04 20:22] VITALS: BMI 38.4
[2022-01-04 21:09] VITALS: BP 124/78; PULSE 60; RESP 16; TEMP 36.8; O2SAT 100
--- NOTE | 2022-01-04 21:24 | PC.NURSE ---
patient up to floor via wheelchair.
[2022-01-04 21:29] VITALS: BP 135/80; PULSE 78; RESP 18; TEMP 36.6; O2SAT 99
[2022-01-04 23:29] LABS: POC Glucose,Bedside 267 (70-110)
[2022-01-05 04:00] VITALS: BP 149/80; PULSE 72; RESP 14; TEMP 36.9; O2SAT 98
--- NOTE | 2022-01-05 05:08 | PC.NURSE ---
Patient rested well thru the night. No complaints thus far. Patient has not had a bowel movement thus far.
[2022-01-05 06:16] LABS: POC Glucose,Bedside 93 (70-110)
[2022-01-05 07:16] LABS: Chloride 99 mmol/L (98-107)
[2022-01-05 07:17] LABS: Potassium 4.1 mmoL/L (3.5-5.1); Sodium 128 mmol/L (136-145)
[2022-01-05 07:19] LABS: Blood Urea Nitrogen 4 mg/dl (7-17); Creatinine Clearance Estimated 256 mL/min (50-200); Estimated Glomerular Filt Rate 145 ml/min (>60); GFR (African American) 175 ML/MIN (>60)
[2022-01-05 07:20] LABS: Anion Gap 10.1 mEq/L (5-15); Calcium 8.6 mg/dl (8.4-10.2); Carbon Dioxide 23 mmol/L (22.0-30.0); Glucose 92 mg/dl (74-100)
[2022-01-05 08:00] VITALS: BP 132/71; PULSE 92; RESP 18; TEMP 36.7; O2SAT 100
--- NOTE | 2022-01-05 08:06 | HMH.PHAVTE ---
[facility] Pharmacy VTE Monitoring - Patient Demographics Admission date: 01/05/22 Report Date: 01/05/22 Time: 08:06 Allergies/Adverse Reactions: Patient Allergies buspirone [BUSPIRONE] Allergy (Severe, Verified 04/01/21 08:54) Seizure nitrofurantoin [NITROFURANTOIN] Allergy (Severe, Verified 04/01/21 08:54) Seizure sulfamethoxazole [From BACTRIM] Allergy (Severe, Verified 04/01/21 08:54) Seizure trimethoprim [From BACTRIM] Allergy (Severe, Verified 04/01/21 08:54) Seizure topiramate [From TOPAMAX] Allergy (Unknown, Verified 04/01/21 08:54) adhesive tape Adverse Reaction (Intermediate, Verified 04/01/21 08:54) SKIN IRRITATION Height: 1.6 m Weight: 98.384 kg Patient Problems: Current Active Problems Hyponatremia (Acute) Gastroenteritis (Acute) - VTE Risk Labs: VTE Related Lab Results Hgb 13.0 g/dL (12.2-16.2) 01/04/22 18:19 Hct 38.9 % (37.0-47.0) 01/04/22 18:19 Plt Count 383 K/mm3 (142-424) 01/04/22 18:19 BUN 4 mg/dl (7-17) L 01/05/22 06:50 Creatinine 0.50 mg/dl (0.52-1.04) L D 01/05/22 06:50 Estimated Creat Clear 256 mL/min (50-200) 01/05/22 06:50 Was VTE Risk Assessment Performed: Yes VTE Score: 1 VTE Risk Level: Very Low Risk Clinical Trial Participant: No - Prophylaxis VTE Prophylaxis Ordered?: Yes Types of VTE Prophylaxis: TEDS Knee High, Pharmacological (ELIQUIS)
--- NOTE | 2022-01-05 08:38 | HMH.HPDC ---
General - General Admission date:: 01/04/22 Discharge date: 01/05/22 *Admission Date: 01/05/22 *Chief complaint: Diarrhea/vomiting *History of present illness: States she began getting nauseated yesterday and then has had profuse vomiting and diarrhea all day today. Has generalized body aches. Denies abdominal pain. No fever. No blood in her diarrhea. No urinary symptoms except decreased urinary output today. She has insulin-dependent diabetes with a history of recurrent DKA. Above note per ER. ER work-up revealed no evidence of DKA, did reveal evidence of hyponatremia. Stool studies were pending. Given patient's hyponatremia and relative dehydration she was admitted to hospital for IV fluids and further diagnostic testing if indicated. [facility] History I have reviewed the patient's past medical history: Yes Medical History: Reports:: Anxiety, Arrhythmia, Deep Vein Thrombosis, Depression, Diabetes Mellitus Type 1, Hypertension, Migraine, Palpitations, Pulmonary Embolism, Seizures Denies:: Cancer, Diabetes Mellitus Type 2, Internal Pacemaker, MRSA *Have you ever received a pneumonia vaccine?: No *Have you received a flu vaccine this season?: Yes Other Medical History: Reports: Anemia, Hypothyroidism, Other. Denies: Blood Transfusion Reaction Laterality Cases: Bilateral: Other Other Surgeries: Yes: Appendectomy, Cholecystectomy, Dilation and Curettage, Hysterectomy-Partial, Tubal Ligation, Other (RT EYE,BACK,POWER PORT). No: Pacemaker Amputation: No Fractures: No - *Social History Smoking Status: Current every day smoker Tobacco Type: cigarettes # Packs/Day (cigarettes): 1 #Yrs smoked (if former smoker): 4 Alcohol Intake: current Alcohol Intake Frequency:: holidays/special occasions only Substance Use Type: marijuana *Occupational Status:: unemployed Housing: apartment Household Members: other *Travel in the last 8 weeks: None - Psychiatric History Pschychiatric History:: Reports:: Anxiety, Depression Family Hx:: Diabetes, Kidney Disease, Mental illness Review of Systems - Review of Systems Review of systems:: pertinent systems reviewed and negative unless documented below Exam Vital signs and Labs for Last 24 Hours: Temp Pulse Resp BP Pulse Ox 98.1 F 92 H 18 132/71 100 01/05/22 08:00 01/05/22 08:00 01/05/22 08:00 01/05/22 08:00 01/05/22 08:00 Laboratory Results - last 24 hr 01/04/22 17:47: POC Glucose 242 H 01/04/22 18:19: WBC 11.2 H, RBC 5.03, Hgb 13.0, Hct 38.9, MCV 77.4 L, MCH 25.9 L, MCHC 33.4, RDW 15.7, Plt Count 383, MPV 9.0, Neut % (Auto) 77.0, Lymph % (Auto) 17.6, [place] % (Auto) 4.0, Eos % (Auto) 0.7, Baso % (Auto) 0.8, Neut # (Auto) 8.6 H, Lymph # (Auto) 2.0, [place] # (Auto) 0.4, Eos # (Auto) 0.1, Baso # (Auto) 0.1 01/04/22 18:19: Sodium 116 L, Potassium 4.3, Chloride 85 L, Carbon Dioxide 20 L, Anion Gap 15.3 H, BUN 4 L, Creatinine 0.40 L, Estimated Creat Clear 321 H, Estimated GFR 187, Est GFR ( Amer) 227, Glucose 273 H, Calcium 8.9, Total Bilirubin 0.5, AST 35, ALT 31, Alkaline Phosphatase 250 H, Total Protein 8.2, Albumin 4.3, Globulin 3.9 H, Albumin/Globulin Ratio 1.1 01/04/22 18:19: Acetone Level None detected 01/04/22 19:00: VBG pH 7.32, VBG pCO2 37.0, VBG pO2 65.0 H, VBG HCO3 18.4 L, VBG Total CO2 19.6 L, VBG O2 Saturation 90.3 H, VBG Base Excess -7.8 L 01/04/22 19:20: Urine Color Yellow, Urine Appearance Sl cloudy, Urine pH 6.0, Ur Specific [place] 1.010, Urine Protein Trace, Urine Glucose (UA) 3+, Urine Ketones 3+, Urine Blood Negative, Urine Nitrate Negative, Urine Bilirubin Negative, Urine Urobilinogen 0.2, Ur Leukocyte Esterase Negative, Urine WBC Occasional, Ur Squamous Epith Cells 20-50, Urine Bacteria Trace 01/04/22 20:10: SARS-CoV-2 (PCR) Not detected, Influenza A Untype (PCR) Not detected, Influenza Type B (PCR) Not detected 01/04/22 22:56: POC Glucose 267 H 01/05/22 06:07: POC Glucose 93 01/05/22 06:50: Sodium 128 L, Potassium 4.1, Chloride 99, Carbon Dioxide 23, Anion Gap 1
[2022-01-05 10:23] LABS: Adenovirus F 40/41, stool Not Detected (NotDetected); Astrovirus Not Detected (NotDetected); Campylobacter Not Detected (NotDetected); Clostridium Difficile A/B, PCR Not Detected (NotDetected); Cryptosporidium Not Detected (NotDetected); Cyclospora Cayetanesis Not Detected (NotDetected); Entamoeba histolytica Not Detected (NotDetected); Enteroaggregative E coli Not Detected (NotDetected); Enteropathogenic E coli Not Detected (NotDetected); Enterotoxigenic E coli Not Detected (NotDetected); Giardia lamblia Not Detected (NotDetected); Norovirus Not Detected (NotDetected); Plesimonas Shigalloides, PCR Not Detected (NotDetected); Rotavirus A Not Detected (NotDetected); Salmonella, PCR Not Detected (NotDetected); Sapovirus Not Detected (NotDetected); Shiga-like toxin E coli Not Detected (NotDetected); Shigella Enterovasive E coli Not Detected (NotDetected); Vibrio Cholerae Not Detected (NotDetected); Vibrio, PCR Not Detected (NotDetected); Yersinia Entercolitica, PCR Not Detected (NotDetected)
[2022-01-05 10:28] VITALS: BMI 38.2
--- NOTE | 2022-01-05 13:20 | PC.NURSE ---
pts port-a-cath flushed with NS and heparin flush.
== END 2022-01-05 13:20 | disposition home or self-care (01) ==
LOC: ER 20:08 → 2ND 20:22
PROVIDERS: Admitting Provider Family Medicine; Emergency Provider Emergency Medicine; PCP Internal Medicine Adolescent Medicine; Visit Provider Internal Medicine Adolescent Medicine
DX: E87.1 Hypo-osmolality and hyponatremia (principal); E11.9 Type 2 diabetes mellitus without complications; Z79.4 Long term (current) use of insulin; Z79.01 Long term (current) use of anticoagulants; G43.909 Migraine, unspecified, not intractable, without status migrainosus; F17.210 Nicotine dependence, cigarettes, uncomplicated; E03.9 Hypothyroidism, unspecified; E86.0 Dehydration; D64.9 Anemia, unspecified; K52.9 Noninfective gastroenteritis and colitis, unspecified; Z86.711 Personal history of pulmonary embolism; Z86.718 Personal history of other venous thrombosis and embolism; Z20.822 Contact with and (suspected) exposure to COVID-19
CPT/HCPCS: 80048; 80053; 81001; 82009; 82803; 82962; 85025; 87506; 96365; 96375; 99284; C9803; G0378; J1642; J2405; U0003; U0005

== ENCOUNTER → 2022-02-05 14:39 | Outpatient (POV) | payer OTHER, SELFPAY ==
[2022-02-05 14:48] VITALS: BP 108/93; PULSE 110; RESP 20; BMI 37.2
--- NOTE | 2022-02-05 16:42 | HMH.PMCON ---
Assessment and Plan (1) Facet arthropathy Status: Acute Category: Medical Code(s): M47.819 - Spondylosis without myelopathy or radiculopathy, site unspecified (2) Lumbar spondylosis Status: Acute Category: Medical Code(s): M47.816 - Spondylosis without myelopathy or radiculopathy, lumbar region (3) Degenerative disc disease, lumbar Status: Acute Category: Medical Code(s): M51.36 - Other intervertebral disc degeneration, lumbar region (4) Ligamentum flavum hypertrophy Status: Acute Category: Medical Code(s): M24.28 - Disorder of ligament, vertebrae - Assessment and plan all Dx Assessment and Plan for all problems:: Patient presents with chronic low back pain that has been going on since 2017. Patient is currently being managed with Lyrica 75 mg twice a day and robaxin. Patient says that these are not helping her pain. I will start the patient on Skelaxin 800 mg 3 times a day. Additionally, patient has tried and failed conservative therapy such as oral medication, physical therapy, and at home exercises for greater than 6 weeks. I will schedule the patient for a medial branch block at L4-L5 and L5-S1. Risk and benefits of this procedure has been discussed with the patient. Patient would like to proceed with this procedure. Patient has been instructed to contact the clinic with any concerns before the next appointment. Dr. Ellis has reviewed this note and agrees with this plan of care. This note was dictated using voice recognition software and make contain errors or omissions. HPI - Data of Consult Patient: new to practice Consult date: 02/05/22 Requesting Physician: ONESIMO Sal - Consult Narrative Reason for consult: Chronic low back pain History of present illness: Ms. Bolton is a 31 year old female presents as a new patient. Patient is referred by Radha Gomez PA-C. Thank you for the referral. Patient presents today with pain originating from her low back that radiates to bilateral lower extremities. Patient states that she was helping her mother in 2017 with something and she felt a pop in her back. Then, they found out that she herniated a disc. She had a discectomy done in [address] Hull. He has been having significant low back pain since then. Patient states that her low back pain is worse with any movement including flexion and extension of her low back. She denies any loss of bowel and bladder functions. This is worse with any activity such as walking. Patient states that she is having issues taking care of her kids because of this pain. For pain management, she is currently taking methocarbamol and Lyrica 75 mg twice a day. These are not helping her pain. Rates her pain today as 8 out of 10. Her Jamari number is [phone] with an active morphine equivalent of 0. CC: ONESIMO Sal [facility] History I have reviewed the patient's past medical history: Yes Medical History: Reports:: Anxiety, Arrhythmia, Deep Vein Thrombosis, Depression, Diabetes Mellitus Type 1, Hypertension, Migraine, Palpitations, Pulmonary Embolism, Seizures Denies:: Cancer, Diabetes Mellitus Type 2, Internal Pacemaker, MRSA *Have you ever received a pneumonia vaccine?: No *Have you received a flu vaccine this season?: Yes Other Medical History: Reports: Anemia, Arthritis, Hypothyroidism, Other. Denies: Blood Transfusion Reaction Laterality Cases: Bilateral: Other Other Surgeries: Yes: Appendectomy, Cholecystectomy, Dilation and Curettage, Hysterectomy-Partial, Tubal Ligation, Other (RT EYE,BACK,POWER PORT). No: Pacemaker Amputation: No Fractures: No - *Social History Smoking Status: Current every day smoker Tobacco Type: cigarettes # Packs/Day (cigarettes): 1 #Yrs smoked (if former smoker): 4 Alcohol Intake: never Alcohol Intake Frequency:: holidays/special occasions only Substance Use Type: marijuana Last Used Substance: unknown *Occupational Status:: unemployed Housing: house Household Members: other *Tr
== END ==
PROVIDERS: Visit Provider Student in an Organized Health Care Education/Training Program
DX: M47.816 Spondylosis without myelopathy or radiculopathy, lumbar region (principal); M51.36 Other intervertebral disc degeneration, lumbar region; M24.28 Disorder of ligament, vertebrae
CPT/HCPCS: 99202; G0463

== ENCOUNTER 2022-02-20 13:16 | Day surgery (SDC) | payer OTHER, SELFPAY ==
[2022-02-20 13:26] VITALS: BP 154/94; BP 159/98; PULSE 100; PULSE 104; RESP 18; RESP 20; O2SAT 98; O2SAT 99
[2022-02-20 13:48] VITALS: BP 134/96; PULSE 104; RESP 20; TEMP 36.4; O2SAT 98; BMI 38.6
--- NOTE | 2022-02-20 14:11 | P.PCN_ITS ---
- Procedure Date: 02/20/22 Time: 14:11 Anesthesiologist:: Alexia Ruvalcaba MD Complications:: None Pre-procedure Diagnosis:: Degenerative disc disease of lumbar spine with lumbar facet arthropathy and spondylosis Post-procedure Diagnosis:: Same Indications for Procedure:: Patient is a very pleasant 31-year-old white female who presents today with chronic low back pain related to the above diagnosis. She denies any radiation of pain down her legs. She is trying failed conservative treatment including oral pain medications and home stretching program for greater than 6 weeks. She is currently being managed with Lyrica 75 mg twice daily, Robaxin, and is Choloxin 800 mg 3 times daily which provides her some pain relief. The plan for today is for the patient to undergo diagnostic lumbar medial branch blocks/facet joint injections at L4-L5 and L5-S1 bilaterally #1. Procedure Details:: Lumbar medial branch block Informed consent was obtained and the risks and benefits of the procedure was explained to the patient. The back was prepped using ChloraPrep. The skin and subcutaneous tissues were anesthetized using lidocaine. I placed 22-gauge spina l needles into the facet joint/medial branches of L4-L5 and L5-S1 bilaterally. Needle placement was confirmed with dye. After this we injected 3 mL bupivacaine 0.25% and Depo-Medro into each facet joint/medial branch of L4-L5 and L5-S1 bilaterally. We used a total of 80 mg Depo-Medrol for all 2 levels bilaterally. The patient tolerated the procedure well with no complications. Plan and Disposition:: Follow-up with this patient in 2 weeks. Will reevaluate pain symptoms at this time.
[2022-02-20 14:18] VITALS: BP 162/99; PULSE 98; RESP 20; O2SAT 98
== END 2022-02-20 14:19 | disposition home or self-care (01) ==
LOC: SC.PAINP 13:21
PROVIDERS: PCP Internal Medicine Adolescent Medicine; Visit Provider Anesthesiology Pain Medicine
DX: M51.36 Other intervertebral disc degeneration, lumbar region (principal); M47.816 Spondylosis without myelopathy or radiculopathy, lumbar region; M54.06 Panniculitis affecting regions of neck and back, lumbar region; M24.28 Disorder of ligament, vertebrae; E10.9 Type 1 diabetes mellitus without complications; I10 Essential (primary) hypertension; G43.909 Migraine, unspecified, not intractable, without status migrainosus; R00.2 Palpitations; R41.9 Unspecified symptoms and signs involving cognitive functions and awareness; F32.A Depression, unspecified
CPT/HCPCS: 64493; 64494; J1040; Q9966

== ENCOUNTER → 2022-03-23 09:10 | Outpatient (POV) | payer OTHER, SELFPAY ==
[2022-03-23 09:38] VITALS: BP 147/94; PULSE 102; RESP 19; TEMP 36.1; O2SAT 98; BMI 38.9
--- NOTE | 2022-03-23 11:07 | HMH.PAINSOAP ---
[facility] Pain Management SOAP Note Subjective:: This patient is a very pleasant 31-year-old female who returns our clinic today for follow-up following lumbar medial branch block L4-5, L5-S1 bilaterally. Patient reports 1 week of significant improvement terms of her lumbar back pain. I discussed in detail with the patient regarding repeat of the lumbar medial branch block L4-5, L5-S1 bilaterally. She wishes to proceed. Patient rates her low back pain 8/10. Patient states pain increases with flexion and extension. Pain in for any length of time increases pain. Also, sitting for any length of time increases pain. Patient rates her low back pain 7/10. Objective:: Patient is awake alert oriented x3. No acute distress. Flexion extension lumbar spine somewhat guarded secondary to pain. Deep tendon reflexes upper and lower extremities normal. Motor strength upper and lower extremities normal. There is no gross sensory deficit. Gait is normal. Assessment:: Degenerative disc disease lumbar spine. Lumbar facet arthropathy multiple levels. Plan:: Patient will be scheduled for repeat lumbar medial branch block L4-5, L5-S1. [facility] History Medical History: Reports:: Anxiety, Arrhythmia, Deep Vein Thrombosis, Depression, Diabetes Mellitus Type 1, Hypertension, Migraine, MRSA, Palpitations, Pulmonary Embolism, Seizures Denies:: Cancer, Diabetes Mellitus Type 2, Internal Pacemaker *Have you ever received a pneumonia vaccine?: No *Have you received a flu vaccine this season?: Yes Other Medical History: Reports: Anemia, Arthritis, Hypothyroidism, Other. Denies: Blood Transfusion Reaction Laterality Cases: Bilateral: Other Other Surgeries: Yes: Appendectomy, Cholecystectomy, Dilation and Curettage, Hysterectomy-Partial, Tubal Ligation, Other (RT EYE,BACK,POWER PORT). No: Pacemaker Amputation: No Fractures: No - *Social History Smoking Status: Never smoker Tobacco Type: cigarettes # Packs/Day (cigarettes): 1 #Yrs smoked (if former smoker): 4 Alcohol Intake: never Alcohol Intake Frequency:: holidays/special occasions only Substance Use Type: marijuana *Occupational Status:: unemployed Housing: house Household Members: other *Travel in the last 8 weeks: None - Psychiatric History Pschychiatric History:: Reports:: Anxiety, Depression Family Hx:: No significant family history
== END ==
PROVIDERS: Visit Provider Nurse Anesthetist, Certified Registered
DX: M51.36 Other intervertebral disc degeneration, lumbar region (principal); M47.896 Other spondylosis, lumbar region
CPT/HCPCS: 99212; G0463

== ENCOUNTER 2022-04-10 07:54 | Day surgery (SDC) | payer OTHER, SELFPAY ==
[2022-04-10 08:11] VITALS: BP 124/85; PULSE 93; RESP 18; TEMP 36.1; O2SAT 98; BMI 38.6
[2022-04-10 08:51] VITALS: BP 148/92; PULSE 82; RESP 20; O2SAT 97
[2022-04-10 08:53] VITALS: BP 148/92; PULSE 82; RESP 20; O2SAT 97
--- NOTE | 2022-04-10 09:01 | HMH.PMPROC ---
- Procedure Date: 04/10/22 Time: 09:01 Anesthesiologist:: Sundeep Lazo CRNA Complications:: None Pre-procedure Diagnosis:: Bilateral lumbar facet arthropathy L4-5, L5-S1 Post-procedure Diagnosis:: Same Indications for Procedure:: Very pleasant 31-year-old female who is here for repeat lumbar medial branch block L4-5, L5-S1. Patient has had some degree of success in a previous round of lumbar medial branch block. She reports 60 to 70% relief. Today she presents for a second round of the same injections. Procedure Details:: Informed consent was obtained and the risk and benefits of the procedure was explained to the patient. Patient was taken to the procedure room where noninvasive monitors were placed, including noninvasive blood pressure cuff as well as pulse oximeter. The area over the lumbar spine was cleansed using chlorhexidine as a cleansing solution. I anesthetized the skin and subcutaneous tissues with 1% Lidocaine. I placed 22-gauge spinal needles into the facet joint/ medial branches of L4-L5, and L5-S1] bilaterally. Needle placement was confirmed with fluoroscopy. After confirmation of needle placement, each site was injected with 1 mL of 1% lidocaine and 0.25 % Marcaine and 10 mg was used for bilateral medial branch blocks of L4-L5, and L5-S1] bilaterally. Patient tolerated the procedure without difficulty. There were no complications. Plan and Disposition:: Was discharged without incident
[2022-04-10 09:04] VITALS: BP 116/74; PULSE 83; RESP 18; O2SAT 97
== END 2022-04-10 09:05 | disposition home or self-care (01) ==
LOC: SC.PAINP 07:54
PROVIDERS: PCP Internal Medicine Adolescent Medicine; Visit Provider Nurse Anesthetist, Certified Registered
DX: M47.816 Spondylosis without myelopathy or radiculopathy, lumbar region (principal); F41.9 Anxiety disorder, unspecified; F32.A Depression, unspecified; E10.9 Type 1 diabetes mellitus without complications; I10 Essential (primary) hypertension; G43.909 Migraine, unspecified, not intractable, without status migrainosus; R00.2 Palpitations; I49.9 Cardiac arrhythmia, unspecified; Z86.718 Personal history of other venous thrombosis and embolism; Z86.711 Personal history of pulmonary embolism; Z86.14 Personal history of Methicillin resistant Staphylococcus aureus infection; Z90.49 Acquired absence of other specified parts of digestive tract
CPT/HCPCS: 64493; 64494

== ENCOUNTER 2022-04-17 23:04 | Emergency (ER) | payer OTHER, SELFPAY ==
[2022-04-17 22:56] VITALS: BP 130/72; PULSE 87; RESP 16; TEMP 37; O2SAT 98
== END 2022-04-17 23:15 | disposition left against medical advice (07) ==
LOC: ER 23:06
PROVIDERS: Emergency Provider Emergency Medicine
DX: Z53.29 Procedure and treatment not carried out because of patient's decision for other reasons (principal)
CPT/HCPCS: 99211

== ENCOUNTER 2022-05-06 11:29 | Emergency (ER) | payer OTHER, SELFPAY ==
[2022-05-06] VITALS (7 sets, daily range): BP systolic 123–168; BP diastolic 87–119; PULSE 72–102; RESP 18; TEMP 37.2–37.3; O2SAT 95–98; BMI 38.6
--- NOTE | 2022-05-06 11:28 | PC.NURSE ---
pt changing into gown; no complications
--- NOTE | 2022-05-06 11:38 | PC.NURSE ---
Dr. Apodaca at BS
--- NOTE | 2022-05-06 11:43 | HMH.EDGENADL ---
ED Disposition Clinical Impression: Pilonidal abscess Disposition: Home, Self-Care Condition on Discharge: Fair Instructions: Boil, Pilonidal Cyst Additional Instructions: Is important to take sitz bath's, or to soak in warm to hot water for 10 to 15 minutes 3 times a day, this will encourage further drainage of this abscess. With your primary care physician to have the wound reassessed in [address] also [address] referral to General surgery if you are interested in discussing possible surgery in future if this is recurrent. If you have increased redness, streaking, or signigicant increase in pain return to the emergency department. Tylenol or Motrin for pain. Referrals: Srini Ayala MD [Primary Care Provider] - - Critical Care Critical Care Time: No Attestation: On , the high probability of a clinically significant, sudden or life threatening deterioration of the following system(s) required my full and direct attention, intervention and personal management. The time I documented below is in addition to time spent performing reported procedures but includes the following listed in this critical care notation. Medical Decision Making - Medical Records Medical records reviewed: Yes: I reviewed the patient's medical records. - Jamari Inquiry Pt receiving controlled substance: No Jamari was queried for this patient: No Vital Signs: 05/06/22 11:24 05/06/22 11:31 05/06/22 11:46 Temperature 99.1 F Temperature Source Oral Pulse Rate 102 H 96 H Pulse Rate [Left Radial] 94 H Respiratory Rate 18 Blood Pressure 140/101 H 137/104 H Blood Pressure [Right Arm] 150/99 H Blood Pressure Mean 112 115 Blood Pressure Mean [Right Arm] 116 02 Sat by Pulse Oximetry 97 97 95 Oxygen Delivery Method Room Air Room Air Room Air 05/06/22 12:00 05/06/22 12:31 Temperature Temperature Source Pulse Rate 90 100 H Pulse Rate [Left Radial] Respiratory Rate Blood Pressure 158/119 H 134/108 H Blood Pressure [Right Arm] Blood Pressure Mean 132 116 Blood Pressure Mean [Right Arm] 02 Sat by Pulse Oximetry 97 98 Oxygen Delivery Method - Lab Data Lab results reviewed: Yes: I reviewed the patient's lab results. Lab Results 05/06/22 12:54: POC Glucose 189 H Orders (Tests/Meds): ED MEDICATIONS Discontinued Medications Generic Name Dose Route Start Last Admin Trade Name Freq PRN Reason Stop Dose Admin Acetaminophen 500 mg 05/06/22 11:41 05/06/22 11:52 Acetaminophen 500mg Tab PO 05/06/22 11:42 500 mg ONCE ONE Administration Ibuprofen 400 mg 05/06/22 11:41 05/06/22 11:52 Ibuprofen 400 Mg Tablet PO 05/06/22 11:42 400 mg ONCE ONE Administration Lidocaine/Prilocaine 5 gm 05/06/22 11:41 05/06/22 11:51 Lidocaine/Prilocaine 5gm Tube TP 05/06/22 11:42 1 gm ONCE ONE Administration ORDERS Category Date Time Status POC Glucose,Bedside Stat Lab 05/06/22 11:41 Ordered Wound Culture and Gram Stain Stat Micro 05/06/22 12:42 Received Medical Decision Narrative: Patient is a 32-year-old female presenting to the emergency department with chief complaint of skin well. Patient states recurrent abscesses, she symptoms At home. Differential diagnosis for this patient includes cellulitis, abscess, pilonidal abscess, rectal abscess, among others. Given location of the abscess, most consistent with a abscess. Given this Emla cream was placed, discussed I&D with patient, he was agreeable with the plan. See this note for further details. Patient is denying any systemic complaints, this is was localized appearance, do not plan to obtain additional labs beyond a wound culture, and [id number] glucose. Patient discharged with instruction to follow-up with primary care physician. General Adult HPI - General Stated complaint: Boil on skin Time Seen by Provider: 05/06/22 11:35 - History of Present Illness HPI narrative: Patient is a 32-year-old female
--- NOTE | 2022-05-06 11:44 | PC.NURSE ---
ABBI Ahumada at BS
--- NOTE | 2022-05-06 12:28 | PC.NURSE ---
Dr. Apodaca at BS for procedure; Kaitlin at BS to assist
--- NOTE | 2022-05-06 12:44 | PC.NURSE ---
wound culture sent to lab; obtained by Dr. Apodaca from left buttocks
--- NOTE | 2022-05-06 12:56 | PC.NURSE ---
Blood glucose was 189; Dr. Apodaca notified.
[2022-05-06 13:01] LABS: POC Glucose,Bedside 189 (70-110)
== END 2022-05-06 13:42 | disposition home or self-care (01) ==
PROVIDERS: Emergency Provider Emergency Medicine; PCP Internal Medicine Adolescent Medicine
DX: L05.01 Pilonidal cyst with abscess (principal)
CPT/HCPCS: 10060; 82962; 87070; 87205; 99283

== ENCOUNTER 2022-07-09 19:08 | Emergency (ER) | payer OTHER, SELFPAY ==
[2022-07-09 19:12] VITALS: BP 164/107; PULSE 88; RESP 18; TEMP 36.9; O2SAT 99; BMI 38.2
[2022-07-09 19:26] LABS: POC Glucose,Bedside 211 (70-110)
[2022-07-09 19:35] LABS: Microscopic, Urine URINE MICROSCOPIC (MICROSCOPIC)
[2022-07-09 19:41] LABS: Basophils # 0.2 K/mm3 (0-0.2); Basophils % 1.6 % (0.1-2.0); Eosinophils # 0.1 K/mm3 (0.0-0.4); Eosinophils % 1.2 % (0.1-12.0); Hematocrit 39.6 % (37.0-47.0); Hemoglobin 12.8 g/dL (12.2-16.2); Lymphocytes # 3.2 K/mm3 (0.7-4.5); Lymphocytes % 27.5 % (10-50); Mean Corpuscular HGB Conc 32.4 g/dL (31.8-35.4); Mean Corpuscular Volume 80.4 fl (81-99); Mean Platelet Volume 8.4 fl (7.4-10.4); Monocytes # 0.5 K/mm3 (0.1-1.0); Monocytes % 4.6 % (1.7-9.3); Neutrophils # 7.5 K/mm3 (1.8-7.8); Neutrophils % 65.1 % (37.0-80.0); Platelet Count 437 K/mm3 (142-424); Red Blood Count 4.93 M/mm3 (4.20-5.40); White Blood Count 11.5 K/mm3 (4.8-10.8)
[2022-07-09 19:44] LABS: Alanine Aminotransferase 24 U/L (12-78); Albumin Level 4.1 g/dl (3.5-5.0); Alkaline Phosphatase 252 U/L (38-126); Anion Gap 9.8 mEq/L (5-15); Aspartate Amino Transferase 28 U/L (14-36); Blood Urea Nitrogen 10 mg/dl (7-17); Calcium 9.2 mg/dl (8.4-10.2); Carbon Dioxide 27 mmol/L (22.0-30.0); Chloride 101 mmol/L (98-107); Creatinine Clearance Estimated 252 mL/min (50-200); Estimated Glomerular Filt Rate 144 ml/min (>60); GFR (African American) 174 ML/MIN (>60); Globulin 4.1 g/dL (1.3-3.2); Glucose 206 mg/dl (74-100); Potassium 3.8 mmoL/L (3.5-5.1); Sodium 134 mmol/L (136-145); Total Protein,Serum 8.2 g/dl (6.3-8.2)
--- NOTE | 2022-07-09 19:44 | XR_ITS ---
PROCEDURE INFORMATION: Exam: XR Left Ribs with PA Chest Exam date and time: 07/09/2022 7:42 PM Age: 32 years old Clinical indication: Painful respiration; Additional info: Cough TECHNIQUE: Imaging protocol: Radiologic exam of the Left ribs with PA chest. Views: 3 views COMPARISON: CR XR CHEST 2V 07/11/2021 7:42 AM FINDINGS: Tubes, catheters and devices: Right IJ central venous catheter is present, distal tip at the approximate location of the atrial caval junction. Lungs: The lungs appear clear. No focal areas of consolidation. Pleural spaces: No pleural effusions or appreciable adenopathy. Negative for pneumothorax. Heart/Mediastinum: Cardiac silhouette and pulmonary vasculature are within range of normal. Surgical clips in the right upper quadrant indicate cholecystectomy. Bones/joints: There is no evidence of acute fracture. IMPRESSION: Negative for an acute cardiopulmonary abnormality.
[2022-07-09 19:47] LABS: Bilirubin,Total < 0.1 mg/dl (0.2-1.3)
[2022-07-09 19:50] LABS: C-Reactive Protein 35.5 mg/L (0-4)
[2022-07-09 19:56] LABS: Urine Pregnancy, HCG Qual. Negative (Negative)
[2022-07-09 20:00] LABS: Coronavirus 19, PCR Not Detected (NotDetected); Influenza A, PCR Not Detected (NotDetected); Influenza B, PCR Not Detected (NotDetected)
[2022-07-09 20:03] LABS: Procalcitonin 0.031 ng/mL (0.0-2.0)
[2022-07-09 20:10] LABS: Acetone, Serum (Rapid) None Detected (None Detect)
[2022-07-09 20:16] LABS: Appearance,Urine CLEAR (Clear); Bilirubin,Urine Negative (Negative); Blood, Urine Negative (Negative); Color,Urine YELLOW (Yellow); Glucose,Urine (UA) TRACE (Negative); Ketones,Urine TRACE (Negative); Leukocyte Esterase,Urine Negative (Negative); Nitrate,Urine Negative (Negative); Protein,Urine 1+ (Negative); Specific Gravity, Urine 1.015 (1.005-1.030); Urobilinogen,Urine 0.2 EU/dl (0.2)
[2022-07-09 20:19] LABS: Bacteria,Urine 1+ /lpf; RBC,Urine Occasional #/hpf (0-3)
[2022-07-09 20:40] LABS: Erythrocyte Sedimentation Rate 20 mm/hr (0-20)
--- NOTE | 2022-07-09 21:15 | HMH.EDNVD ---
ED Disposition Clinical Impression: Acute viral syndrome Diabetes mellitus, insulin dependent (IDDM), uncontrolled Qualifiers: Glycemic state: with hyperglycemia Qualified Code(s): E10.65 - Type 1 diabetes mellitus with hyperglycemia Disposition: Home, Self-Care Condition on Discharge: Good Instructions: DI for Nausea -- Adult Additional Instructions: fluids and use meds and call pcp in am Referrals: Srini Ayala MD [Primary Care Provider] - - Critical Care Critical Care Time: No Attestation: On 07/09/22, the high probability of a clinically significant, sudden or life threatening deterioration of the following system(s) required my full and direct attention, intervention and personal management. The time I documented below is in addition to time spent performing reported procedures but includes the following listed in this critical care notation. Medical Decision Making - Medical Records Medical records reviewed: Yes: I reviewed the patient's medical records. - Jamari Inquiry Pt receiving controlled substance: No Vital Signs: 07/09/22 19:12 Temperature 98.4 F Temperature Source Oral Pulse Rate [Left Radial] 88 Respiratory Rate 18 Blood Pressure [Right Arm] 164/107 H Blood Pressure Mean [Right Arm] 126 02 Sat by Pulse Oximetry 99 Oxygen Delivery Method Room Air - Lab Data Lab results reviewed: Yes: I reviewed the patient's lab results. Lab Results 07/09/22 19:19: POC Glucose 211 H 07/09/22 19:21: WBC 11.5 H, RBC 4.93, Hgb 12.8, Hct 39.6, MCV 80.4 L, MCH 26.0 L, MCHC 32.4, RDW 15.0, Plt Count 437 H, MPV 8.4, Neut % (Auto) 65.1, Lymph % (Auto) 27.5, [place] % (Auto) 4.6, Eos % (Auto) 1.2, Baso % (Auto) 1.6, Neut # (Auto) 7.5, Lymph # (Auto) 3.2, [place] # (Auto) 0.5, Eos # (Auto) 0.1, Baso # (Auto) 0.2, ESR 20 07/09/22 19:21: Sodium 134 L, Potassium 3.8, Chloride 101, Carbon Dioxide 27, Anion Gap 9.8, BUN 10, Creatinine 0.50 L, Estimated Creat Clear 252, Estimated GFR 144, Est GFR ( Amer) 174, Glucose 206 H, Calcium 9.2, Total Bilirubin < 0.1 L, AST 28, ALT 24, Alkaline Phosphatase 252 H, C-Reactive Protein 35.5 H, Total Protein 8.2, Albumin 4.1, Globulin 4.1 H, Albumin/Globulin Ratio 1.0 L, Procalcitonin 0.031, Acetone Level None detected 07/09/22 19:24: Urine Color Yellow, Urine Appearance Clear, Urine pH 6.0, Ur Specific [place] 1.015, Urine Protein 1+, Urine Glucose (UA) Trace, Urine Ketones Trace, Urine Blood Negative, Urine Nitrate Negative, Urine Bilirubin Negative, Urine Urobilinogen 0.2, Ur Leukocyte Esterase Negative, Urine RBC Occasional, Urine WBC 3-5, Ur Squamous Epith Cells 3-5, Urine Bacteria 1+ 07/09/22 19:24: Urine HCG, Qual Negative 07/09/22 19:56: SARS-CoV-2 (PCR) Not detected, Influenza A Untype (PCR) Not detected, Influenza Type B (PCR) Not detected Result diagrams: 07/09/22 19:21 07/09/22 19:21 Orders (Tests/Meds): ED MEDICATIONS Generic Name Dose Route Start Last Admin Trade Name Freq PRN Reason Stop Dose Admin Sodium Chloride 1,000 mls @ 999 mls/hr 07/09/22 21:30 07/09/22 21:24 Sod Chlor 0.9% 1000ml Bag IV 07/09/22 22:30 999 mls/hr .Q1H1M DALIA Administration Discontinued Medications Generic Name Dose Route Start Last Admin Trade Name Freq PRN Reason Stop Dose Admin Sodium Chloride 1,000 mls @ 999 mls/hr 07/09/22 19:30 07/09/22 20:00 Sod Chlor 0.9% 1000ml Bag IV 07/09/22 20:30 999 mls/hr .Q1H1M DALIA Administration Ketorolac Tromethamine 30 mg 07/09/22 19:47 07/09/22 20:00 Ketorolac 30mg/Ml Vial IV 07/09/22 19:48 30 mg ONCE ONE Administration Ondansetron HCl 4 mg 07/09/22 19:30 07/09/22 20:00 Ondansetron 4mg/2ml Vial IV 07/09/22 19:31 4 mg ONCE ONE Administration ORDERS Category Date Time Status Urine Culture Stat Micro 07/09/22 19:24 Received - Radiology Data #1 Image(s): Chest Image Reviewed: Yes I have reviewed radiologist's interpretation Preliminary Findings: Normal/NAD Medical Decision Narrati
--- NOTE | 2022-07-09 21:53 | PC.NURSE ---
Rechecked pt condition. Pt voiced no needs or complaints at this time. Pt also advised her ride was on the way.
[2022-07-09 22:24] VITALS: BP 154/78; PULSE 81; RESP 18; TEMP 36.9; O2SAT 99
== END 2022-07-09 22:25 | disposition home or self-care (01) ==
PROVIDERS: Emergency Medicine; Emergency Provider Emergency Medicine; PCP Internal Medicine Adolescent Medicine
DX: B34.9 Viral infection, unspecified (principal); E10.65 Type 1 diabetes mellitus with hyperglycemia; Z79.4 Long term (current) use of insulin; Z79.899 Other long term (current) drug therapy; Z88.1 Allergy status to other antibiotic agents; Z88.8 Allergy status to other drugs, medicaments and biological substances; I10 Essential (primary) hypertension; G43.909 Migraine, unspecified, not intractable, without status migrainosus; F41.9 Anxiety disorder, unspecified; I49.9 Cardiac arrhythmia, unspecified; Z86.718 Personal history of other venous thrombosis and embolism; Z86.711 Personal history of pulmonary embolism
CPT/HCPCS: 71101; 80053; 81001; 81025; 82009; 82962; 84145; 85025; 85651; 86140; 87086; 96365; 96366; 96375; 99284; C9803; J1642; J2405; U0003; U0005